=== PATIENT | male | born 1945 | race Caucasian/White ===

== ENCOUNTER 2017-08-02 14:07 | Inpatient (IN) | payer OTHER ==
[~2017-08-02] VITALS: Ht 172.7 cm; Wt 88.9 kg
--- NOTE | 2017-08-02 14:21 | ED GENERAL ADULT ---
History of Present Illness General Chief Complaint: Chest Pain Stated Complaint: RAPID AFIB Source: patient, old records, EMS Exam Limitations: poor historian Vital Signs & Intake/Output Vital Signs & Intake/Output Vital Signs Date Time Temp Pulse Resp B/P B/P Pulse O2 O2 Flow FiO2 Mean Ox Delivery Rate 08/04 1621 99 96 08/04 1326 101 95 08/04 1200 97.7 92 48 150/76 96 Nasal 75% Cannula 08/04 1200 96 Nasal 75% Cannula 08/04 1144 96 92 08/04 0825 81 93 08/04 0800 97.2 91 25 148/68 94 BIPAP 50% 08/04 0800 95 BIPAP 50% 08/04 0600 97.8 102 25 174/83 08/04 0543 104 96 08/04 0400 97.8 98 24 173/69 08/04 0400 96 BIPAP 50% 08/04 0245 106 96 08/04 0200 98.2 106 28 167/66 08/04 0054 109 97 08/04 0030 93 Nasal 40% Cannula 08/04 0000 98.2 110 34 158/74 08/04 0000 92 Nasal 40% Cannula 08/04 0000 98.2 110 34 136/80 92 Nasal 40% Cannula 08/03 2232 95 Nasal 40% Cannula 08/03 2200 97.8 106 30 158/79 08/04 1999 98.0 92 24 164/82 08/03 2000 94 Nasal 40% Cannula 08/04 1999 95 Nasal 40% Cannula 08/03 1700 94 Nasal 40% Cannula ED Intake and Output 08/04 0000 03 1200 Intake Total 797 1850 Output Total 820 100 Balance -23 1750 Intake, IV 797 1850 Intake, Oral 0 Number 0 0 Bowel Movements Output, Urine 820 100 Patient 233 lb Weight Weight Bed scale Measurement Method Allergies Coded Allergies: No Known Allergies (08/02/17) Reconcile Medications Aspirin (Adult Low Dose Aspirin EC) 81 MG TABLET.DR 1 TAB PO DAILY HEART/BLOOD (Reported) Carvedilol 25 MG TABLET 1 TAB PO BID HEART/BP (Reported) Lisinopril 20 MG TABLET 1 TAB PO DAILY BP (Reported) Triage Nurses Notes Reviewed? yes Onset: Gradual Duration: worse persistent since (2-3 DAYS) Timing: unknown Injury Environment: home Severity: moderate No Modifying Factors: none HPI: Patient is a 72-year-old from home coming in via EMS with history of CHF and hypertension presenting with chief complaint of generalized malaise, weakness, increasing lower extremities swelling, palpitations. According to EMS the landlord was concerned because she has not heard from the patient in several days and he usually calls daily if he needs something. She went over to check on him and found him on the ground. She was able to get him up and have him Samet couch. When EMS arrived he was sitting on the couch. Patient reports that he was sleeping on the floor. He's not sure if he fell or hit his head. Patient says that the last time he left his house was yesterday and he was able to go up and down 40 steps. Patient denies any recent fevers or chills. Positive cough. She does report diffuse abdominal discomfort and intermittent issues with moving his bowels. Denies diarrhea or constipation no. Denies any urinary frequency urgency or dysuria. Patient reports of the lower extremity edema got worse in the past 1-2 days. He ran out of all of his medications over the past 3 months, was unable to call his doctor for refills because he could not find the phone number. Patient has not been taking his medications for "a while". He is not sure what he was taking or why he was taking them. Patient reports some difficulty breathing is worse with exertion. Patient also reports centralized chest pressure that seems to come and go. No current pain at this time of the chest. Patient does report that he's had falls, once in the snow and once getting out of the car but he cannot recall when THAT WAS. (Archana Vergara) Past History Travel History Traveled to [place] past 21 day No Medical History Any Pertinent Medical History? see below for history Pneumonia Vaccine: 09/03/10 Influenza Vaccine: 09/03/10 Surgical History Surgical History: non-contributory Psychosocial History Who do you live with Patient/Self Services at Home None What is your primary language Albanian Family History Hx Contributory? No (Archana Vergara) Review of Systems Review of Systems Constitutional: Reports: see HPI, malaise. Denies: weakness. Comments Review of systems: See HPI, All other systems negative. Constitutional, no chills fever or weight loss HEENT: No visual changes no sore throat Cardiovascular: Positive orthopnea, positive lower extremity edema Skin, no jaundice no rashes Respiratory: No hemoptysis GI: No nausea no vomiting : No dysuria No hematuria Muscle skeletal: no back pain, no neck pain, Neurologic: No numbness Psych: No stress anxiety or depression,. Heme/endocrine: No bruising no bleeding no polyuria or polydipsia Immunology: No splenectomy or history of AIDS (Archana Vergara) Physical Exam Physical Exam General Appearance: alert, awake, moderate distress, obese Comments: OBESE and disheveled person in MILD DISTRESS, HEET exam, extraocular motion intact, no nystagmus. Pupils equally round and reactive to light and accommodation. Slight. No drainage noted from eyes bilaterally. Crusting noted in both eyelashes in the upper and lower eyelid. Nose is atraumatic. External auditory canal and Tympanic membranes clear. Pharynx normal. No swelling or edema. Very dry oral mucosa. Neck: Supple, no lymphadenopathy Cardiovascular: IRRegular rate and rhythms, RAPID Respiratory: Chest nontender. Moderate respiratory distress.breath sounds diminished to auscultation bilaterally at the bases Abdomen: Soft, obese, diffusely tender in the lower quadrant bilaterally with mild guarding, nondistended, no appreciable organomegaly. Normal bowel sounds. No ascites rectal: At time of rectal exam patient is agitated, unsafe to perform rectal exam at this time. Extremity: Extensive edema #3+ pitting noted in the lower extremities bilaterally, positive weeping noted in the left lower extremity, pedal pulses are 1+ bilaterally. Sensation is intact in lower extremities bilaterally. Cap refill intact in lower extremities bilaterally. Full range of motion of upper extremities without difficulty or pain. Neuro: Alert oriented to person only, motor sensory normal, cranial nerves II through XII grossly intact. Skin: Dry scabbing rash noted over the anterior shins bilaterally, no surrounding erythema. Some weeping noted from these lesions. Psych: Mood and affect is normal, POOR [employer]ORY AND [employer]GEMENT Core Measures ACS in differential dx? Yes CVA/TIA Diagnosis: No Sepsis Present: No Sepsis Focused Exam Completed? No (Archana Vergara) Progress Differential Diagnoses I considered the following diagnoses in my evaluation of the patient: Rapid atrial fibrillation, dehydration, thyroid dysfunction, CHF exacerbation, medication noncompliance, ACS, pneumonia, pe, sepsis, dvt, cellulitis Plan of Care: Orders Procedure Date/time Status SERUM PROTEIN ELECTR. Ref$ 03/04 0600 Active PROTHROMBIN TIME 08/05 0600 Active ICU LAB BUNDLE 08/05 0600 Active CBC WITHOUT DIFFERENTIAL 08/05 0600 Active COMPLEMENT C4 08/05 0600 Active COMPLEMENT C3 08/05 0600 Active PARTIAL THROMBOPLASTIN TIME 08/04 1930 Active Patient Safety Monitor 08/04 1355 Active Restraint- Medical 08/04 1355 Active Eason, Insertion/Removal/Asses 08/04 1355 Active PARTIAL THROMBOPLASTIN TIME 08/04 1230 Complete OXYGEN SETUP (GEN) 08/04 1155 Complete EKG 08/04 1020 Active ICU LAB BUNDLE 08/04 0600 Complete CBC WITHOUT DIFFERENTIAL 08/04 0600 Complete Heparin Drip- ACS 08/04 0429 Active PARTIAL THROMBOPLASTIN TIME 08/04 0019 Complete RT RE-EVALUATION 08/04 UNK Complete BIPAP 08/04 UNK Complete BIPAP 08/04 UNK Complete ARTERIAL BLOOD GAS (GEN) 08/04 UNK Complete Patient Safety Monitor 08/04 UNK Complete PARTIAL THROMBOPLASTIN TIME 08/03 1800 Complete THERAPIST ORDERS 08/03 1510 Complete WESTERGREN SED RATE 08/03 0525 Complete VITAMIN B12 08/03 0525 Complete ANTINUCLEAR ANTIBODY 08/03 0525 Active Lab Add-on Test 08/03 UNK Active Current Medications Sig/Richard Start time Last Medication Dose Stop Time Status Admin Diltiazem HCl 125 MG Q10H 08/05 0100 AC (Cardizem DRIP) Sodium Chloride 100 ML (Normal Saline 0.9%) Cyanocobalamin/ 1 BAG DAILY@1600 08/04 1600 AC Thiamine/Pyridoxine (Vitamin in I.V.) Dextrose/Water 1,000 ML (D5W 1000) Dextrose/Lactated 1,000 ML Q13H 08/04 1500 AC Ringer's (D5W in Lactated Ringers) Albuterol Sulfate 3 ML Q4P PRN 08/04 1330 AC 08/04 (Proventil) 1321 Doxycycline Hyclate 100 MG Q12H 08/04 1315 AC 08/04 (Vibramycin) 1407 Sodium Chloride 100 ML (Normal Saline 0.9%) Diltiazem HCl 125 MG Q12H 08/04 1115 AC 08/04 (Cardizem DRIP) 08/05 0059 1447 Sodium Chloride 100 ML (Normal Saline 0.9%) Aspirin 300 MG 0300 08/04 0300 AC 08/04 (Aspirin) 0439 Ceftriaxone Sodium 2,000 MG DAILY@1900 08/03 1900 AC 08/03 (Rocephin) 2216 Pantoprazole Sodium 40 MG DAILY 08/03 1000 AC 08/04 (Protonix) 0901 Nystatin 1 CYN BID PRN 08/03 0645 (Mycostatin) Thiamine HCl 100 MG Q8H 08/02 2330 AC 08/04 (Vitamin B-1) 1608 Sodium Chloride 50 ML (Normal Saline 50ML Bag) Heparin Sodium 25,000 UNIT Q24H 08/02 1545 AC 08/04 (Porcine) 0902 (Heparin) Sodium Chloride 500 ML Laboratory Tests 08/04/17 1234: APTT 102 *H 08/04/17 0445: Anion Gap 11, Estimated GFR 29 L, Glucose 90, Calcium 9.0, Phosphorus 4.5, Magnesium 1.9, Total Bilirubin 1.5 H, AST 86 H, ALT 72, Albumin 2.3 L, CBC w Diff NO MAN DIFF REQ, RBC 4.71, MCV 96.7 H, MCH 31.9 H, MCHC 33.0, RDW 16.8 H , MPV 8.1, Gran % 90.1 H, Lymphocytes % 4.6 L, Monocytes % 5.3, Eosinophils % 0, Basophils % 0, Absolute Granulocytes 9.0 H, Absolute Lymphocytes 0.5 L, Absolute Monocytes 0.5, Absolute Eosinophils 0, Absolute Basophils 0 08/04/17 0110: pH 7.38, pCO2 42, pO2 98, HCO3 24, ABG O2 Sat (Measured) 97.0, P-50 (Temp Corrected) N, Carboxyhemoglobin 0.8 L, O2 Concentration % .50, Respiration Rate 24, O2 Delivery Method BIPAP, Vent Mode ST, Expiratory Pressure 4, Inspiratory Pressure 20, Phlebotomy Draw Site RIGHT RADIAL 08/04/17 0020: APTT 73 H 08/03/17 1720: Ammonia < 9 L, APTT 58 H Microbiology 08/04 1611 HEAD/NECK: Head/Neck Culture - CAN Cancelled: Cancelled via OE: Per Decision 08/04 161 HEAD/NECK: Gram Stain - CAN Cancelled: Cancelled via OE: Per Decision 08/03 1816 LOWER RESP: Respiratory Culture - CAN Cancelled: SPECIMEN NOT RECEIVED IN LABORATORY 08/03 1816 LOWER RESP: Gram Stain - CAN Cancelled: SPECIMEN NOT RECEIVED IN LABORATORY 08/02/2017 4:41:07 PM patient in critical care. Care resumed by Dr. Navarro at this time. Diagnostic Imaging: Viewed by Me: Radiology Read. Discussed w/RAD: Radiology Read. Radiology Impression: PATIENT: JOSE GLEASON PRESENT AGE: 72 PATIENT ACCOUNT NO: [id number] : 44 LOCATION: [facility] ORDERING PHYSICIAN: Archana MITCHELL SERVICE DATE: 08/02/17 EXAM TYPE: RAD - XRY-PORTABLE CHEST XRAY EXAMINATION: XR PORTABLE CHEST CLINICAL INFORMATION: Cough. Rule out pneumonia. COMPARISON: Chest x-ray dated 09/02/2010. TECHNIQUE: Portable AP semierect view of the chest was obtained. FINDINGS: The cardiac mediastinal silhouette appears enlarged, at least in part related to the AP portable technique. Underlying cardiomegaly may however, possibly present. Central vascular congestion is seen and there are patchy bibasilar opacities, right greater than left, suspicious for atelectasis or pneumonia. No overt pulmonary edema is seen. No definite pleural effusion or pneumothorax is noted. Bony structures are grossly unremarkable. IMPRESSION: 1. Cardiomegaly and central vascular congestion. 2. Bibasilar opacities, suspicious for atelectasis or pneumonia. DICTATED BY: Aliyah Mcarthur MD DATE/TIME DICTATED:08/02/171503 DEGREASER OPERATOR:DHARMESH DATE/TIME TRANSCRIBED:08/02/171503 CONFIDENTIAL, DO NOT COPY WITHOUT APPROPRIATE AUTHORIZATION. <Electronically signed in Other Vendor System> SIGNED BY: Aliyah Mcarthur MD 08/02/17 1509 Initial ED EKG: AFIB (rapid) Comments: 08/02/2017 4:02:20 PM on arrival patient in rapid atrial fibrillation patient is oriented to person, confused about time and situation. Very poor historian. Oxygen saturation around 90% on room air, but on 2 L nasal cannula with improvement to 95-97%. Patient's cranial nerves are intact with no focal deficits. Patient medicated with IV Cardizem 10 mg 2 boluses. Monitor still showing patient in rapid atrial fibrillation around 150-160. Considering ACS, PE. Unsure if patient has history of atrial fibrillation in the past. Meds reconciled consistent antihypertensive medications. Patient also reports that he has not taken his meds "for a while". 08/02/2017 4:34:41 PM medical restraints ordered for patient as he is becoming agitated and starting to pull out his IV. (Tanisha MITCHELL,Archana) Comments: 08/02/2017 4:17:33 PM I have discussed Farhan case with Dr. BHAKTA. 08/02/2017 4:52:59 PM patient's case discussed with Dr. Hitchcock any particular the patient's current heart rate and elevated troponin level. Dr. Hitchcock will be in to see this patient in about 30 minutes. He recommends another dose of IV Lopressor 5 mg to improve heart rate control. Patient is being evaluated by Dr. Bhakta and he will be admitted to the intensive care unit. 08/02/2017 6:09:[address] Hitchcock is evaluating patient. Patient has already been evaluated by the ICU house staff. Unable to obtain CAT scan due to agitation, question of . I will order a blood gas and we are continuing to adjust the patient's rate controlling medications as he remains persistently tachycardic. 08/02/2017 7:04:47 PM we have just cardioverted Jose into a controlled heart rate after initially 50 kg joules followed by 70 kg joules. His heart rate is now in the 80s and his blood pressure is normal. (Melanie KOEHLER,Wiliam Villegas) Departure Departure Time of Disposition: 1638 Disposition: STILL A PATIENT Condition: Stable Clinical Impression Primary Impression: Rapid atrial fibrillation Secondary Impressions: Elevated troponin Hypotension Qualifiers: Hypotension type: unspecified hypotension type Qualified Code: I95.9 - Hypotension, unspecified Referrals: Patient Has No Primary Care Dr (PCP/Family) Departure Forms: Customer Survey General Discharge Information Admission Note Spoke With: Kd KOEHLER,Susi Documentation of Exam: Documentation of any treatments & extenuating circumstances including Concerns Regarding Discharge (functional status, medication knowledge or non-compliance, living conditions, etc.) that warrant an admission rather than observation: Patient requiring telemetry monitoring, requiring cardiology consultation, serial EKGs and troponins, patient requiring medication management, control of rapid atrial fibrillation, anticoagulation. Discharge at this time is harmful which she would likely lead to worsening symptoms and . Patient will need a VQ scan to rule out PE versus CTA of the chest after renal function has improved. Patient may require cardioversion. (Archana Vergara) PA/WEBSPHERE PROCESS SERVER DEVELOPER Co-Sign Statement Statement: ED Attending supervision documentation- [x] I saw and evaluated the patient. I have also reviewed all the pertinent lab results and diagnostic results. I agree with the findings and the plan of care as documented in the PA's/WEBSPHERE PROCESS SERVER DEVELOPER's documentation. Patient presents for evaluation of generalized weakness and heart palpitation. Physical examination reveals an irregular heartbeat and bilateral lower extremity edema. [] I have reviewed the ED Record and agree with the PA's/WEBSPHERE PROCESS SERVER DEVELOPER's documentation. [] Additions or exceptions (if any) to the PAs/WEBSPHERE PROCESS SERVER DEVELOPER's note and plan are summarized below: [] (Melanie KOEHLER,Wiliam Villegas) Critical Care Note Critical Care Note Critical Care Time: 75-104 min (Archana Vergara)
[2017-08-02 15:02] LABS: ABSOLUTE BASOPHIL COUNT 0 /CUMM (0.0-0.2); ABSOLUTE EOSINOPHIL COUNT 0 /CUMM (0.0-0.7); ABSOLUTE GRANULOCYTE CT 9.5 /CUMM (1.4-6.5); ABSOLUTE LYMPH COUNT 0.6 /CUMM (1.2-3.4); ABSOLUTE MONOCYTE COUNT 0.6 /CUMM (0.10-0.60); BASOPHIL % 0 % (0.0-2.0); EOSINOPHIL % 0 % (0-5); HEMATOCRIT 52.2 % (42-52); MEAN CORPUSCULAR HGB 31.9 PG (27.0-31.0); MEAN CORPUSCULAR HGB CONC 33.4 G/DL (33.0-37.0); MEAN CORPUSCULAR VOLUME 95.3 FL (80.0-94.0); MEAN PLATELET VOLUME 8.7 FL (7.4-10.4); PLATELET COUNT 151 /CUMM (130-400); RBC DISTRIBUTION WIDTH 16.3 % (11.5-14.5); RED BLOOD CELL CT 5.48 /CUMM (4.70-6.10); WHITE BLOOD CELL COUNT 10.7 /CUMM (4.8-10.8)
--- NOTE | 2017-08-02 15:09 | RADIOLOGY REPORT ---
EXAMINATION: XR PORTABLE CHEST CLINICAL INFORMATION: Cough. Rule out pneumonia. COMPARISON: Chest x-ray dated 09/02/2010. TECHNIQUE: Portable AP semierect view of the chest was obtained. FINDINGS: The cardiac mediastinal silhouette appears enlarged, at least in part related to the AP portable technique. Underlying cardiomegaly may however, possibly present. Central vascular congestion is seen and there are patchy bibasilar opacities, right greater than left, suspicious for atelectasis or pneumonia. No overt pulmonary edema is seen. No definite pleural effusion or pneumothorax is noted. Bony structures are grossly unremarkable. IMPRESSION: 1. Cardiomegaly and central vascular congestion. 2. Bibasilar opacities, suspicious for atelectasis or pneumonia.
[2017-08-02 15:19] LABS: GRANULOCYTE % 88.5 % (42.2-75.2)
[2017-08-02 15:31] LABS: PT 21.7 SEC (9.4-12.5); PTT 32 SEC (25-37)
[2017-08-02] MEDS ORDERED: ADULT LOW DOSE81 MG PO (16:35)
[2017-08-02] MEDS ORDERED: CARVEDILOL25 M1 PO (16:36)
[2017-08-02] MEDS ORDERED: LISINOPRIL20 M1 PO (16:36)
--- NOTE | 2017-08-02 17:42 | PN- Att Addend ---
Attending Addendum Attending Brief Note 72 y/o m with past medical history significant for CHF systolic and diastolic at one point, hypertension who was brought in to the emergency room by ambulance after the landlord found him in his apartment laying on the floor, in a messy situation. Landlord put him on the couch and patient looked short of breath and sick. According to emergency room notes, landlord hasn't heard from him in few days so she visited him and found like this. Patient was brought into the emergency room. He is not a good historian and not able to provide any good history. In the emergency room patient was found to be tachycardic and new onset A. fib. His heart rate was running anywhere between 160s to 170s. Patient is swollen everywhere in the body and has pretty bad anasarca. He has open wounds with excoriations on his bilateral lower extremities. Patient was agitated and trying to get out of bed therefore he was put in a [place]. He has positive troponins, acute renal failure. He was admitted in 2010 with dehydration and acute renal failure. He was seen by Dr. Moises Fry at that time. Patient himself did not provide any meaningful history. He does have high lactate levels. He is also hypotensive. His blood gas does not look that bad. Vital Signs Date Time Temp Pulse Resp B/P B/P Pulse O2 O2 Flow FiO2 Mean Ox Delivery Rate 08/02 1726 158 22 92/70 100 Nasal 4.0L Cannula 08/02 1720 172 92/60 08/02 1715 175 22 92/60 95 Nasal 4.0L Cannula 08/02 1548 176 100/60 08/02 1528 Nasal 4.0L Cannula 08/02 1519 97.0 176 24 100/60 93 Nasal 3.0L Cannula 08/02 1506 180 20 110/78 / 1430 199 119/59 03/ 1419 97.4 185 20 119/59 89 Room Air on exam; awake, confused. cv; s1,s2, irrgular, tachycardic. resp; overall decreased bs. abd; soft, bs+, nt. ext; 4+ edema b/l le. skin; open wounds and excoriations on bilateral lower extremity. EKG shows rapid atrial fibrillation. CXR: IMPRESSION: 1. Cardiomegaly and central vascular congestion. 2. Bibasilar opacities, suspicious for atelectasis or pneumonia. A/P; 72 y/o m with past medical history significant for CHF systolic and diastolic at one point, hypertension admitted to ICU with multiple problems. * Altered mental state * Rapid atrial fibrillation which is new onset * NSTEMI versus demand ischemia. * Acute renal failure * High lactate levels * Coagulopathy * Transaminitis * Acute CHF with high proBNP. * Hypotension. Patient admitted to ICU. CT head, CT abd pelvis ordered by ER physician. He was started on Cardizem gtt. Patient now is hypotensive and tachycardic. Firer Boiler consult. Dr. Cisneros notified by me. Stat cardiology consult. ER doc spoke with hot air furnace installer repairer. ABG not bad. Pt might need shock, will leave that upto the hot air furnace installer repairer. Needs anticoagulation once ruled for intracranial bleed. Trend trops, trend lactate. Aspirin Statin. Trend renal fx, Renal US, nephrology consult. DVT px: hep gtt if ruled out for IC bleed. D/w brother who is not involved in this patient's care. Full code for now.
--- NOTE | 2017-08-02 18:44 | Cons- Cardiology ---
General Information and HPI Consulting Request Date of Consult: 08/02/17 Requested By: Amelia KOEHLER,Kurt Robles History of Present Illness: This patient is a 72 year old male with history of diastolic heart failure and syncope. He was brought to the ER after his landlord found him on the floor. He had fallen in the snow a couple days ago. EMS gave him NTG which was followed by a drop in blood pressure. In the ER the patient was noted to be in atrial fibrillation with very fast heart rate. The patient can respond to questioning but denies any chest discomfort, shortness of breath, lightheadedness or palpitations. He has elevated LFT's, an elevated troponin and increased serum lactate level. He also has an elevated INR in the absence of any known anticoagulation therapy. This patient is known to be non-compliant with medications and physician follow- up. His last echocardiogram showed a normal EF of 60% with mild left atrial enlargement and mild TR. He reportedly had a cardiac cath in the past that was unremarkable for any flow limiting disease. Allergies/Medications Allergies: Coded Allergies: No Known Allergies (08/02/17) Home Med List: Aspirin (Adult Low Dose Aspirin EC) 81 MG TABLET.DR 1 TAB PO DAILY HEART/BLOOD (Reported) Carvedilol 25 MG TABLET 1 TAB PO BID HEART/BP (Reported) Lisinopril 20 MG TABLET 1 TAB PO DAILY BP (Reported) Review of Systems Review of Systems: A review of systems is unobtainable from this patient. Past History Travel History Traveled to [place] past 21 day No Medical History Cardiovascular: hypertension, syncope Surgical History Surgical History: non-contributory Psychosocial History Services at Home: None ETOH Use: occasional use Illicit Drug Use: denies illicit drug use Exam & Diagnostic Data Vital Signs and I&O Vital Signs Date Time Temp Pulse Resp B/P B/P Pulse O2 O2 Flow FiO2 Mean Ox Delivery Rate 08/02 1726 158 22 92/70 100 Nasal 4.0L Cannula 08/02 1720 172 92/60 08/02 1715 175 22 92/60 95 Nasal 4.0L Cannula 08/02 1548 176 100/60 08/02 1528 Nasal 4.0L Cannula 08/02 1519 97.0 176 24 100/60 93 Nasal 3.0L Cannula 08/02 1506 180 20 110/78 08/02 1430 199 119/59 08/02 1419 97.4 185 20 119/59 89 Room Air Intake & Output 08/02 1600 08/02 0800 08/02 0000 08/01 1600 08/01 0800 08/01 0000 Intake Total Output Total Balance Patient 208 lb Weight Weight Reported by Patient Measurement Method Physical Exam: General: WD/obese male in NAD; awake and confused HEENT: Nc/AT, PERRl, EOMI Neck: no JVD, no carotid bruit Heart: tachycardic and irregularly irregular, no murmur Lungs: clear bilaterally Abdomen: soft, obese, NT, +ve bowel sounds Extremities: 3+ bilateral leg edema with weeping legs Assessment/Plan Assessment/Plan * Mental status abnormality. It is unclear if this is the patient's baseline but he is not completely lucid. Intracerebral trauma related to his recent fall needs to be considered and I would pursue a head CT. His ABG shows adequate oxygenation and a normal pH. I am therefore not suspicious of a PE causing mental status changes. It is reasonable to check his thyroid function tests. Infection, or impending sepsis is also in the differential. Would avoid sedation or anxiolytics at this point in time. * This patient has a rise in cardiac enzymes consistent with a type 2 ID. He has no chest discomfort and there are no clear ST segment elevations. Monitor his cardiac enzymes until they peak. He will not be able to tolerate nitrates due to his blood pressure which dropped after receiving NTG by EMS. Rate control will be the most effective means of limiting any myocardial ischemia. Continue IV heparin and begin aspirin 325mg daily. We will avoid a statin due to his elevated LFT's for now. * Atrial fibrillation. It is unknown how long this patient has been in atrial fibrillation but he is very tachycardic with a borderline blood pressure and cardiac enzymes are rising. He has not responded to IV Cardizem or IV Lopressor. We will pursue a DC cardioversion for hemodynamic instabilty. Continue IV heparin. Consult Acknowledgment - Thank you for your consult request.
--- NOTE | 2017-08-02 18:55 | History & Physical ---
Peter KOEHLER,Phujesus 08/02/171851: General Information and HPI MD Statement: I have seen and personally examined JOSE PIKE and documented this H&P. The patient is a 72 year old M who presented with a patient stated chief complaint of [AMS]. Source of Information: old records Exam Limitations: unable to give history, not alert/orientated, poor historian History of Present Illness: This is a 72 yo male with PMH of CHF, HTN, prev hx of syncope who comes in for CC AMS. When I saw pt he was AO X 0. He thought his name was Talat, the year was 1897 and he didn't know where he was. History is obtained from chart review and ED notes. Apparently pt was found down by his landlord who got worried since he hadn't heard from ih in a few days. Apparently pt was on this floor in a dissheveled situation and messy apartment. Landlord thought that pt looked ill and short of breath so he called ambulance. I called pt's son Jose Pike III, who lives is [place] for further info. Last time son spoke with pt was on Sunday on Jul 31, 2017. At that time pt complained of "having the flu" and feeling under the weather to his son. Son thought that pt sounded slurred. Prior to that last time son spoke to father was about two months ago. Unsure if pt was taking any OTC meds for symptom relief. Per ED hx it seems like pt was alert enough to give some reasonable history to [facility]. Apparently he was lucid enough to remark "last time he left his house was yesterday and he was able to go up and down 40 steps. Patient denies any recent fevers or chills. Positive cough." He also endorsed recent falls. His mental status seems to have worsened after he was in ED. He was unable to give me any history during my interview. Medication claim suggests that pt has not taken any meds in over a year. Medication non-compliance endorsed by son and previous note written by Dr. Moises Seaman. Fam hx pertinent for lung ca in mother. No hx CAD. Soc hx pertinent for social etoh use per son but he does not know if father is alcoholic. No IVDA. Allergies/Medications Allergies: Coded Allergies: No Known Allergies (08/02/17) Home Med list Aspirin (Adult Low Dose Aspirin EC) 81 MG TABLET. 1 TAB PO DAILY HEART/BLOOD (Reported) Carvedilol 25 MG TABLET 1 TAB PO BID HEART/BP (Reported) Lisinopril 20 MG TABLET 1 TAB PO DAILY BP (Reported) Compliance With Home Meds: UNKNOWN Past History Travel History Traveled to [place] past 21 day No Medical History Cardiovascular: hypertension, syncope Pneumonia Vaccine: 09/03/10 Influenza Vaccine: 09/03/10 Surgical History Surgical History: non-contributory Past Family/Social History Psychosocial History Services at Home: None ETOH Use: occasional use Illicit Drug Use: denies illicit drug use Review of Systems Review of Systems Constitutional: Reports: see HPI. Exam & Diagnostic Data Last 24 Hrs of Vital Signs/I&O Vital Signs Date Time Temp Pulse Resp B/P B/P Pulse O2 O2 Flow FiO2 Mean Ox Delivery Rate 08/02 1904 89 118/66 08/02 1849 166 18 86/60 08/02 1726 158 22 92/70 100 Nasal 4.0L Cannula 08/02 1720 172 92/60 08/02 1715 175 22 92/60 95 Nasal 4.0L Cannula 08/02 1548 176 100/60 08/02 1528 Nasal 4.0L Cannula 08/02 1519 97.0 176 24 100/60 93 Nasal 3.0L Cannula 08/02 1506 180 20 110/78 08/02 1430 199 119/59 08/02 1419 97.4 185 20 119/59 89 Room Air Intake & Output 08/02 1600 08/02 0800 08/02 0000 Intake Total Output Total Balance Patient 94.347 kg Weight Weight Reported by Patient Measurement Method Physical Exam General Appearance Moderate Distress, AO X0 Skin SEVERAL OPEN SORES IN BILAT LE Sepsis Skin Exam (color): Flushed HEENT Atraumatic, PERRLA Cardiovascular TACHYCARDIC UP TO 150S Lungs Finn rhonchi apprciated. unsure if sounds are upper airway Abdomen obese. he complaines of some tenderness diffusely Neurological speech slurred, no facial droop and moving all extremeties equally and spontaenously. Extremities 4+ edema above knees. chronic stasis skin changes in bilat LE. LLE with erythema in calf that is warm. Last 24 Hrs of Labs/Zackery: Laboratory Tests 08/02/17 1836: Lactic Acid 4.3 H 08/02/17 1810: pH 7.41, pCO2 33 L, pO2 92, HCO3 21, ABG O2 Sat (Measured) 96.0, P-50 (Temp Corrected) N, Carboxyhemoglobin 0.2 L, O2 Concentration % 4L, Temperature 97.0, O2 Delivery Method NC, Phlebotomy Draw Site RIGHT RADIAL 08/02/17 1635: Urine Opiates Screen < 100, Methadone Screen < 40, Barbiturate Screen < 60, Ur Phencyclidine Scrn < 6.00, Amphetamines Screen < 100, U Benzodiazepines Scrn < 85, Urine Cocaine Screen < 50, Urine Cannabis Screen < 5.00, Urine Color YEL, Urine Clarity HAZY H, Urine pH 6.0, Ur Specific [place] 1.025, Urine Protein 100 H, Urine Ketones TRACE H, Urine Nitrite NEG, Urine Bilirubin NEG@ICTO, Urine Urobilinogen 2.0 H, Ur Leukocyte Esterase NEG, Ur Microscopic SEDIMENT EXAMINED, Urine RBC 10-15 H, Urine WBC 3-5 H, Ur Epithelial Cells RARE, Urine Bacteria RARE H, Urine Hemoglobin LARGE H, Urine Glucose NEG 08/02/17 1517: Lactic Acid 3.3 H, PT 21.7 H, INR 2.08 H, APTT 32, D-Dimer High Sensitivty 3108 H 08/02/17 1450: Anion Gap 15, Estimated GFR 37 L, BUN/Creatinine Ratio 30.6 H, Glucose 76, Calcium 9.9, Total Bilirubin 3.1 H, AST 119 H, ALT 76 H, Alkaline Phosphatase 98, Creatine Kinase 395 H, Troponin I 1.71 *H, Prr-F-Zjjnzfcffqo Pept 4650 H, Total Protein 6.1 L, Albumin 3.0 L, Globulin 3.1, Albumin/Globulin Ratio 1.0 L, Free T4 1.94, Total T3 Pending, TSH &T3 &Free T4 Intrp 1.260, CBC w Diff NO MAN DIFF REQ, RBC 5.48, MCV 95.3 H, MCH 31.9 H, MCHC 33.4, RDW 16.3 H, MPV 8.7, Gran % 88.5 H, Lymphocytes % 5.5 L, Monocytes % 6.0, Eosinophils % 0, Basophils % 0, Absolute Granulocytes 9.5 H, Absolute Lymphocytes 0.6 L, Absolute Monocytes 0.6, Absolute Eosinophils 0, Absolute Basophils 0, Serum Alcohol < 10.0 Microbiology 08/03 1851 URINE ROUT: Urine Culture - COLB 08/02 1828 UPPER RESP: Surveillance Culture - COLB 08/02 1828 GI: Surveillance Culture - COLB 08/03 1811 BLOOD: Blood Culture - COLB 08/03 1811 BLOOD: Blood Culture - COLB 08/02 1635 URINE ROUT: Urine Culture - RECD 08/02 1442 URINE ROUT: Urine Culture - ORD Assessment/Plan Assessment: ASSESSMENT:This is a 72 yo male with PMH of CHF, HTN, prev hx of syncope who comes in for CC AMS after being found down for unknown duration. He was found to be in a.fib RVR up to 199, he was confused and agitated. In ED multiple pushes of Lopressor and cardizem drip failed to adequately control his HR and he became hypotensive with systolic in 80s and even more confused. After cardiology evaluation decision was made to cardiovert pt for hemodynamic instability. First cardioversion with 50 J unsuccessful, second cardioversion with 70 J successful and pt went into NSR with rate 80-90s. Overall, this is pt with presumed new onset Afib with RVR, decompensated heart failure and AMS. Unsure if the afib is secondary to heart failure or possible infectious source. Theoretically, he meets SIRS criteria but his signs of tachycardia/hypotension are due to his rapid atrial fibrillation. Etiology of AMS remains elusive with DDX metabolic encephalopathy, primary neurologic event such as bleed given elevated INR and fall, or medication/drugs. PLAN: AMS: * CT head * Neuro check * ABG * NPO AFIB RVR: S/P synch cardioversion. Now rate controlled but still irregular. EKG showed rate 190, irregularly irregular rhythm, evidence of RBBB and L fascicular block. TFT WNL. * Monitor on tele * Heparin drip * Initially on Diltiazem drip. will scale back now that he is rate controlled * Repeat EKG Elevated Troponin: First trop 1.71, EKG a.fib RVR. THought to be secondary to demand due to tachycardia and less likely plaque rupture. * monitor EKG/Trop until peak * Echo * ASA 300 TX * On heparin drip CHF: Echo from 2009 shows EF 35% but from 2010 shows EF 65% with hyperdynamic LV and mild LAE. Pt has significant LE edema, and cxr with evidence of volume overload raising concern for decompensated heart failure. BNP 4650, no previous value. * Echo * Hold Beta dick * Holding Lisinopril for hypotension * Appreciate cardio recs * Strict I/O * Eason placed Chronic vs Acute Renal Failure: Cr 1.8 with BUN 55 today. Historically Cr between 1.1-2.3. Unsure of his baseline. * Cont monitor * avoid nepro toxins * Renal consult for AM * Renal US * UA * Urine lytes Hypoxic respiratory failure: Pt was O2 sat 89 when he first came in. He was satting in mid 80s when I was in room. unsure if secondary to fluid overload and or RVR causing dyspnea. CXR with evidence of volume overload and ? bibasliar opacity * ABG * 1 x VANCO/CEF/AZITHRO Transamanitis: Tbili 3.1, AST 119, ALT 76. INR elevated to 2. Not on AC. Pt has unknown hx etoh consumption. DDX: etoh, drug induced, and given abdominal pain on exam cholelithiasis/cystitis. * UTOX * CIWA protocol * Con't monitor * CT- ABD * Fractionate Bili * Consider RUQ US * IV Hi-dose thiamine q8 for 3 doses Lactic acidosis: Could be secondary to RVR and hypotension leading to ischemia and also elevated troponin. Will also treat for possible infection as trigger for afib with RVR. However, note he has been afebrile with WBC WNL. Possible sources include PNA, cellulitis of LLE, UTI, ABD source given pain, cannot rule out meningits but no fever, nuchal rigidity. His AMS really started AFTER admission. Will cover broadly and reassess after workup. * Cont trend LA * VANCO/CEFTRIAXONE/AZITHRO X 1 ordered; dosed with assistancy of pharmacy * Blood cultures * urine culture * sputum culture * flu swab FC Heparin if CT head cleared NPO As Ranked By This Provider Problem List: 1. Elevated troponin 2. Hypotension Qualifiers Hypotension type: unspecified hypotension type Qualified Code: I95.9 - Hypotension, unspecified 3. Rapid atrial fibrillation Core Measures/Misc (02/18) Acute Coronary Syndrome ACS Diagnosis: No Congestive Heart Failure Congestive Heart Failure Diagnosis Yes Last Known EF % 65 No MARIBEL/ARB d/t Medical Contraindication Cerebrovascular Accident CVA/TIA Diagnosis: No VTE (View Protocol) VTE Risk Factors Acute Medical Illness No Mechanical VTE Prophylaxis d/t N/A MechProphylax Ordered No VTE Pharm Prophylaxis d/t NA PharmProphylax ordered Sepsis (View protocol) Sepsis Present: No [facility] 2144: Attending MD Review Statement Attending Statement Attending MD Statement: examined this patient, discuss w/resident/PA/STAGE TECHNICIAN, agreed w/resident/PA/STAGE TECHNICIAN, discussed with family, reviewed EMR data (avail), discussed with nursing, discussed with case mgmt, reviewed images, amended to note Attending Assessment/Plan: Seen and examined independently. Significant data reviewed CT scan of the abdomen showed bilateral pleural effusion CT of the head did not reveal any abnormality which was acute Portable chest x-ray showed cardiomegaly with bibasilar atelectasis versus pneumonia but the abdominal CT lower cuts does suggest that he has moderate bilateral pleural effusion with bibasilar airspace disease and small pericardial effusion Blood work reviewed His hemoglobin 17.5 White count 10 no significant left shift D-dimer was significantly elevated but specimen was hemolyzed Echocardiogram reviewed which showed low ejection fraction of 50% with inferior apical and apical hypokinesis large apical thrombus. IMPRESSION This is a 72-year-old gentleman with history of diabetes, previous heart failure diastolic, previous syncope, came into the hospital as was brought in from his home as his landlord found him on the floor. Patient apparently had had a previous fall in the snow as well. In the emergency room he was noted to have significant atrial fibrillation with tachycardia and he was hypotensive and hemodynamically unstable and had to have emergent cardioversion as his blood pressure was slow and he was unstable. Apparently patient has been compliant and has not seen any physicians in the recent past. Other data as noted above. Since he came into the emergency room his mental status apparently deteriorated. Apparently was lucid when he came in and he did not have any temperature and he was not complaining of a headache. Subsequently he became more confused and had to require large doses of Ativan as he was cardioverted emergently by Dr. Hitchcock. ISSUES * Recent worsening overall mental status status post fall with no clinical evidence suggestive of significant bacterial endocarditis however this may need to be ruled out. Apparently his mental status when he came in was relatively stable and patient now has decreased mentation due to delirium and Ativan * Rapid atrial fibrillation with significantly large intraventricular clot with probable strokelike syndrome * Hypoxemic respiratory failure due to fluid overload, aspiration pneumonia * Lactic acidosis due to low flow state related to hypotension from his rapid atrial fibrillation, and sepsis may have pneumonia as well * Total body fluid overload with lower extremity edema with bilateral pleural effusion, atelectasis, clinical evidence suggestive of systolic and diastolic heart failure * Type II AR versus coronary syndrome all her by cardiology * Bilateral pulmonary infiltrates with thick yellow-green sputum suggestive of pneumonia rule out aspiration pneumonitis * Chronic kidney disease with acute renal insufficiency * Rule out venous thromboembolism. Patient is not a candidate for CTA due to kidney disease and he is being heparinized anyway. As his blood pressures stable and no evidence suggestive of significant RV dysfunction unlikely that he has a significant PE however he may have a DVT * Worsening performance status with previous hypertension hyperlipidemia and medical noncompliance Recommendation * Intravenous heparin as he has a large intraventricular clot * Continue diltiazem per cardiology * Broad-spectrum antibiotics including vancomycin, azithromycin and high-dose ceftriaxone * Avoid lorazepam * Keep the head of bed elevated * Intravenous proton pump inhibitor daily * Neurochecks * Low threshold for intubation overnight * Eason catheter * Judicious use of IV fluids with 60 mL of D5 Ringer's lactate * Sputum culture * If his blood pressure stabilizes 1 dose of intravenous Lasix may be tried * Lower extremity Doppler Patient is critically ill total time spent 45 minutes
--- NOTE | 2017-08-02 20:10 | ULTRASOUND REPORT ---
EXAMINATION: RENAL ULTRASOUND CLINICAL INFORMATION: Sepsis. Elevated creatinine. COMPARISON: None. TECHNIQUE: Real-time imaging of the kidneys and bladder. FINDINGS: RIGHT KIDNEY: There is neither hydronephrosis nor nephrolithiasis. There is mild diffuse renal cortical thinning. The right kidney measures 12.3 cm. LEFT KIDNEY: There is neither hydronephrosis nor nephrolithiasis. There is mild diffuse renal cortical thinning. The left kidney measures 8.2 cm. BLADDER: The urinary bladder is empty. There is no demonstrable wall thickening. There is no pelvic free fluid. IMPRESSION: Neither hydronephrosis nor nephrolithiasis. Bilateral renal cortical thinning.
--- NOTE | 2017-08-02 21:07 | ECHOCARDIOGRAM REPORT ---
EVELIA GLEASON Age: 72 : 1945 Gender: M Exam Date: 08/02/2017 19:45 Exam Location: ER Ht (in): 68 Wt (lb): 208 BSA: 2.16 BP: 100 / 60 Ordering Physician: Marleny Green MD Referring Physician: Jamal Hitchcock MD, PhD Technologist: Olga Schultz [facility] Room Number: ER#[id number] Indications: AFIB/FLUTTER Rhythm: Sinus Technical Quality: good FINDINGS Left Ventricle Normal left ventricular size with moderate left ventricular hypertrophy. Normal overall systolic function with hypokinesis of the distal inferior wall and apex. Thrombus is noted in the apex. Normal left ventricular diastolic filling pattern for age. The ejection fraction is visually estimated at 50%. Right Ventricle The right ventricle is normal in size and function. Right Atrium The right atrium is normal in size. Left Atrium The left atrium is moderately enlarged. The interatrial septum is intact. Mitral Valve The mitral valve is normal in structure and function. There is mild mitral regurgitation. Aortic Valve Structurally normal aortic valve without significant sclerosis or stenosis. There is no aortic regurgitation. Tricuspid Valve The tricuspid valve is normal in structure and function. There is mild tricuspid regurgitation. Pulmonary artery systolic pressure is mildly elevated to 40mmHg. Pulmonic Valve Structurally normal pulmonic valve. There is no pulmonic regurgitation. Pericardium Normal pericardium with small effusion. No pleural effusion. Great Vessels Normal aortic root dimension. The aortic arch and great vessels are well seen and are normal. CONCLUSIONS 1. Low normal EF of 50% with inferoapical and apical hypokinesis. 2. Large apical thrombus. 3. Moderate left ventricular hypertrophy. 4. Moderate left atrial enlargement. 5. Mild mitral regurgitation. 6. Mild tricuspid regurgitation. 7. Mild pulmonary hypertension. 8. Small pericardial effusion. Jamal Hitchcock M.D. (Electronically Signed) Final Date: 02 August 2017 21:06 MEASUREMENTS (Male / Female) Normal Values 2D ECHO LV Diastolic Diameter PLAX 4.4 cm 4.2 - 5.9 / 3.9 - 5.3 cm LV Systolic Diameter PLAX 3.1 cm 2.1 - 4.0 cm LV Fractional Shortening PLAX 29.5 % 25 - 46 % LV Ejection Fraction 2D Teich 56.8 % IVS Diastolic Thickness 1.7 cm LVPW Diastolic Thickness 1.6 cm LV Relative Wall Thickness 0.8 RV Internal Dim ED PLAX 3.7 cm 1.9 - 3.8 cm LVOT Diameter 2.1 cm Aortic Root Diameter 2.9 cm LA Systolic Diameter LX 4.7 cm 3.0 - 4.0 / 2.7 - 3.8 cm LA Volume 82.0 cm 18 - 58 / 22 - 52 cm DOPPLER AV Peak Velocity 157.0 cm/s AV Peak Gradient 9.9 mmHg AV Mean Velocity 102.0 cm/s AV Mean Gradient 5.0 mmHg AV Velocity Time Integral 27.2 cm LVOT Peak Velocity 168.0 cm/s LVOT Peak Gradient 11.3 mmHg LVOT Mean Velocity 105.0 cm/s LVOT Mean Gradient 5.0 mmHg LVOT Velocity Time Integral 27.1 cm LVOT Stroke Volume 93.9 cm AV Area Cont Eq vti 3.5 cm AV Area Cont Eq pk 3.7 cm MV Peak Velocity 114.0 cm/s MV Peak Gradient 5.2 mmHg MV Mean Velocity 64.6 cm/s MV Mean Gradient 2.0 mmHg Mitral E Point Velocity 117.0 cm/s Mitral A Point Velocity 60.5 cm/s Mitral E to A Ratio 1.9 MV PHT Velocity 119.0 cm/s MV Deceleration [place] 454.0 cm/s MV Pressure Half Time 78.6 ms MV Area PHT 2.8 cm MV Deceleration Time 264.0 ms TR Peak Velocity 294.0 cm/s TR Peak Gradient 34.6 mmHg Right Atrial Pressure 5.0 mmHg Pulmonary Artery Systolic Pressu 39.6 mmHg Right Ventricular Systolic Press 39.6 mmHg LV E' Lateral Velocity 5.5 cm/s Mitral E to LV E' Lateral Ratio 21.4 LV E' Septal Velocity 5.6 cm/s Mitral E to LV E' Septal Ratio 20.9
--- NOTE | 2017-08-02 21:36 | CT SCAN REPORT ---
EXAMINATION: CT ABDOMEN AND PELVIS WITHOUT CONTRAST CLINICAL INFORMATION: Abdominal pain. COMPARISON: None. TECHNIQUE: Contiguous axial thin section helical images of the abdomen and pelvis were performed without oral or IV contrast. The data set was reformatted in the coronal and sagittal planes and reviewed on an independent workstation. DLP: 1260 mGy-cm. FINDINGS: There are moderate bilateral pleural effusions. There is associated bibasilar airspace disease. The visualized portions of the heart demonstrate enlargement. There is a small pericardial effusion. The liver is of normal size and attenuation without focal lesions nor intrahepatic biliary ductal dilation. A normal gallbladder is identified. There is no wall thickening or discernible pericholecystic fluid. The spleen, pancreas, adrenal glands are unremarkable. Both kidneys are of normal size and attenuation without hydronephrosis. There are several punctate nonobstructive renal calculi bilaterally. There are bilateral parapelvic cysts. There is mild bilateral perinephric stranding. There is no abdominal free fluid. There is neither mesenteric nor retroperitoneal lymphadenopathy. There is sigmoid diverticulosis without evidence of diverticulitis. Otherwise, unremarkable unopacified loops of small and large bowel are identified. There is no pelvic free fluid. The urinary bladder is partially filled. A Eason catheter is in place. There is neither pelvic nor inguinal lymphadenopathy. Bone windows: Neither sclerotic nor lytic bone lesions are identified. IMPRESSION: Several punctate nonobstructive right renal calculi. No hydronephrosis. Moderate bilateral pleural effusions with associated bibasilar airspace disease. Infection cannot be excluded. Cardiomegaly and small pericardial effusion. Sigmoid diverticulosis without evidence of diverticulitis.
--- NOTE | 2017-08-02 21:36 | CT SCAN REPORT ---
EXAMINATION: CT HEAD AND CERVICAL SPINE CLINICAL INFORMATION: Fall. Evaluate for acute intracranial hemorrhage. Evaluate for fracture. COMPARISON: Head CT 09/02/2010, cervical spine CT 09/03/2010 TECHNIQUE: Cost Control Supervisor images were obtained. A CT acquisition of the head and cervical spine was performed without the intravenous administration of contrast. Data was reformatted into multiplanar images at the acquisition workstation. DLP: 987.3 mGy-cm. FINDINGS: Head: There is no acute intracranial hemorrhage or abnormal extra-axial collection. No intracranial mass effect or midline shift. Lateral and third ventricles are proportionate to the subarachnoid spaces. No hydrocephalus. Culp-white matter differentiation is grossly preserved and there is no evidence of acute territorial infarct. The calvarium and skull base are intact. Mastoid air cells and middle ear cavities are well aerated. Visualized paranasal sinuses are well aerated. Cervical spine: There is near-anatomic alignment and position of the vertebral bodies and posterior elements of the cervical spine in the sagittal dimension. Vertebral heights are preserved. There is no acute fracture. No abnormal prevertebral soft tissue swelling. Soft tissues of the neck including the thyroid gland are normal. Small layering pleural effusions are partially visualized within the apices of both hemithoraces. IMPRESSION: No acute intracranial hemorrhage. No acute cervical spine fracture. Although only partially visualized within the [id number] of this examination there are layering pleural effusions on both sides.
[2017-08-02 22:00] VITALS: BP 150/75
[2017-08-02 23:00] VITALS: BP 132/65
[2017-08-02 23:25] LABS: PTT > 120 SEC (25-37)
[2017-08-03] VITALS (10 sets, daily range): BP systolic 112–170; BP diastolic 63–82
[2017-08-03 05:49] LABS: ABSOLUTE BASOPHIL COUNT 0 /CUMM (0.0-0.2); ABSOLUTE EOSINOPHIL COUNT 0 /CUMM (0.0-0.7); ABSOLUTE GRANULOCYTE CT 10.6 /CUMM (1.4-6.5); ABSOLUTE LYMPH COUNT 0.7 /CUMM (1.2-3.4); ABSOLUTE MONOCYTE COUNT 0.7 /CUMM (0.10-0.60); BASOPHIL % 0.1 % (0.0-2.0); EOSINOPHIL % 0 % (0-5); GRANULOCYTE % 87.7 % (42.2-75.2); MEAN CORPUSCULAR HGB 31.9 PG (27.0-31.0); MEAN CORPUSCULAR VOLUME 96.7 FL (80.0-94.0); PLATELET COUNT 137 /CUMM (130-400); PT 22.2 SEC (9.4-12.5); PTT 68 SEC (25-37); RBC DISTRIBUTION WIDTH 16.8 % (11.5-14.5); RED BLOOD CELL CT 4.87 /CUMM (4.70-6.10); WHITE BLOOD CELL COUNT 12.1 /CUMM (4.8-10.8)
[2017-08-03 05:58] LABS: HEMATOCRIT 47.1 % (42-52)
--- NOTE | 2017-08-03 07:44 | PN- Resident CRCU ---
Subjective HPI/CRCU Issues: The patient was seen and examined in the morning. Minimally responsive to painful stimuli, moaning. Noted to have pinpoint pupils, did not respond to Narcan 2. He has received 2 doses of 0.5 IV Ativan yesterday(Last dose 20:24). On IV heparin and IV Cardizem, ME aspirin. IV azithromycin, ceftriaxone. Objective Vital Signs & I&O Last 8 Hrs of Vitals and I&O: Intake & Output 08/03 1600 Intake Total 209 Output Total 350 Balance -141 Intake, IV 209 Output, Urine 350 Patient 233 lb Weight Weight Bed scale Measurement Method Exam General Appearance: Obtunded, moves spontaneously, normal tone, response wnl to tactile stimuli in feet, withdraw from pain, toes downward b/l, pipoint pupils noted which dilates when patient's head is moved. Head: atraumatic Ears, Nose, Throat: brisk corneal reflex b/l Neck: supple Respiratory: b/l rhonchi Cardiovascular: regular rate/rhythm Extremities: b/l pedal edema w/erythema, hyperkeratotic yellow nails in poor hygene., right toe with scab, decreased pulsation b/l, chronic venous stasis changes Cranial Nerves: Doll's eye normal. IGLESIA, EOMI, Tongue midline Skin: warm/dry, See extremities exam Skin Temp/Moisture Exam: Warm/Dry Other Physical Findings: Kernig and Brudzinski sign negative Current Medications: Current Medications Sig/Richard Start time Last Medication Dose Route Stop Time Status Admin Aspirin 300 MG 0300 08/04 0300 AC ME Aspirin 325 MG DAILY 08/02 2345 CAN PO Aspirin 300 MG DAILY 08/02 2345 DC 08/03 ME 0324 Azithromycin 500 MG DAILY@08/03 1900 AC Dextrose/Water 250 ML IV Azithromycin 500 MG ONCE ONE 08/02 2300 DC 08/02 Dextrose/Water 250 ML IV 08/02 2359 2334 Ceftazidime 1,000 MG ONCE ONE 08/02 1930 CAN IV 08/02 193 Ceftriaxone Sodium 2,000 MG DAILY@08/03 1900 AC IV Ceftriaxone Sodium 2,000 MG ONCE ONE 08/02 2300 DC 08/02 IV 08/02 2301 2335 Cyanocobalamin/ 1 BAG DAILY 08/03 1415 AC 08/03 Thiamine/Pyridoxine IV 1611 Dextrose/Water 1,000 ML Diltiazem HCl 125 MG Q24H 08/02 1430 AC 08/03 Sodium Chloride 100 ML IV 1611 Furosemide 20 MG ONCE ONE 08/02 2315 DC 08/02 IV 08/02 2316 2336 Furosemide 40 MG ONCE ONE 08/02 2100 CAN IV 08/02 2101 Heparin Sodium 25,000 UNIT Q24H / 1545 AC 08/03 (Porcine) IV 1754 Sodium Chloride 500 ML Lorazepam 1 MG Q1 PRN 08/02 2330 DC IV Lorazepam 0 .STK-MED ONE 08/02 202 DC .ROUTE Lorazepam 0.5 MG ONCE ONE 08/02 2000 DC 08/02 IV 08/02 Lorazepam 0.5 MG ONCE PRN 08/02 2000 DC IV 08/02 2359 Naloxone HCl 0.4 MG Q1 08/03 1000 DC 08/03 IV 08/03 1101 0950 Naloxone HCl 0.4 MG ONCE ONE 08/03 0945 CAN SC 08/03 0946 Nystatin 1 CYN BID PRN 08/03 0645 AC TOP Pantoprazole Sodium 40 MG DAILY 08/03 1000 AC 08/03 IV 0926 Phytonadione 10 MG ONCE ONE 08/03 1415 DC / SC 08/03 1416 1611 Sodium Chloride 1,000 ML ONCE ONE 08/02 1430 DC 08/02 IV 08/02 2109 1430 Thiamine HCl 100 MG Q8H 08/02 2330 AC 08/03 Sodium Chloride 50 ML IV 1611 Vancomycin HCl 1,500 MG ONCE ONE 08/02 2030 DC 08/02 Dextrose/Water 250 ML IV 08/02 2159 2334 Impression/Plan Impression/Problem List Impression: This is a 72 -year-old male with past medical history significant for CHF, hypertension who presented with altered mental status. He was brought to the hospital after being found unresponsive in his apartment. While in the ED, he was noted to be in A. fib with RVR requiring multiple doses of IV Lopressor and Cardizem drip. He also underwent cardioversion. Subsequently was admitted to the ICU for further monitoring. Problem list/plan: #AMS: * Head CT was negative on admission for any acute intracranial pathology. * Repeat head CT was negative this morning. * Neurology suggesting another city this evening to rule out any hemorrhage. * Continue with neuro checks * NPO * Neurology consult appreciated Will follow recommendations * MRI brain - at minimum DWI sequence. * EEG * Avoid Ativan * Check ammonia level * ID consult appreciated * ESR, LIYAH, vit B12 level #AFIB RVR: S/P synch cardioversion. EKG showed rate 190, irregularly irregular rhythm, evidence of RBBB and L fascicular block. TFT WNL. * Monitor on tele * Heparin drip * C/w Diltiazem drip * Follow cardiology recommendation #Elevated Troponin: First trop 1.71, EKG a.fib RVR. THought to be secondary to demand due to tachycardia and less likely plaque rupture. * Troponin peaked * Echo:1. Low normal EF of 50% with inferoapical and apical hypokinesis. 2. Large apical thrombus. 3. Moderate left ventricular hypertrophy. 4. Moderate left atrial enlargement. 5. Mild mitral regurgitation. 6. Mild tricuspid regurgitation. 7. Mild pulmonary hypertension. 8. Small pericardial effusion. * ASA 300 ME * On heparin drip #CHF: Echo from 2009 shows EF 35% but from 2010 shows EF 65% with hyperdynamic LV and mild LAE. Pt has significant LE edema, and cxr with evidence of volume overload raising concern for decompensated heart failure. BNP 4650, no previous value. * Echo as above * Appreciate cardio recs * Strict I/O * Eason placed #Chronic vs Acute Renal Failure: * Creatinine are worsening to 2.3 * Cont monitor * avoid nepro toxins * Renal consult appreciated, will follow recommendations. * Follow up UProt, UCr, UMicroalbumin,C3, C4 (for infection related GN), Hepatitis B, C and HIV testing,SPEP, UPEP, KLFLC * UA * Urine lytes #Hypoxic respiratory failure: Pt was O2 sat 89 when he first presented. CXR with evidence of volume overload and ? bibasliar opacity * ID consult appreciated * If febrile broad abx coverage (vancomycin/CTX/ampicillin/acyclovir); and once feasible LP to r/o infection (CSF analysis cell count, glucose, protein, HSV and VZV DNA PCR in CSF, bacterial, fungal and mycobactereial culture; save one tube for further testing). #Transamanitis: Tbili 3.1, AST 119, ALT 76. INR elevated to 2. Not on AC. Pt has unknown hx etoh consumption. DDX: etoh, drug induced, and given abdominal pain on exam cholelithiasis/cystitis. * UTOX tested * CIWA protocol * Con't monitor * CT- ABD:Several punctate nonobstructive right renal calculi. No hydronephrosis.Moderate bilateral pleural effusions with associated bibasilar airspacedisease. Infection cannot be excluded.Cardiomegaly and small pericardial effusion.Sigmoid diverticulosis without evidence of diverticulitis. * Fractionate Bili * Consider RUQ US * IV Hi-dose thiamine q8 for 3 doses #Lactic acidosis-resolved: Could be secondary to RVR and hypotension leading to ischemia and also elevated troponin. -Being treated for possible infection as trigger for afib with RVR. However, note he has been afebrile with WBC WNL. Possible sources include PNA, cellulitis of LLE, UTI, ABD source given pain, cannot rule out meningits however less likely given no fever, and negative Gladis Mcdonald. His AMS really started AFTER admission. * ID recommendations as above * Blood cultures * urine culture * sputum culture * flu swab FC IV Heparin NPO Problem List: 1. Rapid atrial fibrillation 2. Elevated troponin Pain Ratin Tomorrow's Labs & Rationales: CBC to monitor H&H ICU bundle to monitor electrolytes Plan DVT/Prophylaxis: pharmacological
--- NOTE | 2017-08-03 09:54 | Event Note ---
Event Note Event Note: Called and updated brother and son (Jose Pike : [phone]) regarding patient's continued obtundation. They are in agreement with repeat CT head and if needed lumbar puncture. He is also to be full code with central lines if needed. Neurology consult placed. Per IR he does not have indication for IR guided LP. Per son as he has been having flu like symptoms, he has been taking nyquil and mostly likely having poor po intake the last few days. 2.03pm. Telephone consent obtained from son for transfusion of blood and blood products (witness Dr. Lang). Consent form in chart.
--- NOTE | 2017-08-03 10:23 | ULTRASOUND REPORT ---
EXAMINATION: BILATERAL LOWER EXTREMITY VENOUS ULTRASOUND CLINICAL INFORMATION: Lower extremity edema. Suspect DVT. COMPARISON: None TECHNIQUE: Doppler spectral analysis and color flow Doppler imaging was performed of the lower extremities. Compression and augmentation maneuvers were performed. FINDINGS: Evaluation was performed portably in the CR see you. Severe edema is noted in the calves. The right and left common femoral vein, greater saphenous vein takeoff, femoral vein, and popliteal vein are normally compressible with normal augmentation responses and phasic changes seen with Doppler imaging. The midcalf peroneal and posterior tibial veins are patent as well. No popliteal cyst is seen. IMPRESSION: No evidence of deep venous thrombosis in the right or left lower extremity.
--- NOTE | 2017-08-03 10:32 | PN- CRCU ---
See Addendum Subjective HPI/Critical Care Issues: Continues to be less reponsive Afebrile Pinpoint pupils Moves all limbs NO response to narcan Objective Current Medications: Current Medications Sig/Richard Start time Last Medication Dose Route Stop Time Status Admin Aspirin 300 MG 0300 08/04 0300 AC NV Aspirin 325 MG DAILY 08/02 2345 CAN PO Aspirin 300 MG DAILY 08/02 2345 DC 08/03 NV 0324 Azithromycin 500 MG ONCE ONE 08/02 2300 DC 08/02 Dextrose/Water 250 ML IV 08/02 2359 2334 Ceftazidime 1,000 MG ONCE ONE 08/02 1930 CAN IV 08/02 1931 Ceftriaxone Sodium 2,000 MG ONCE ONE 08/02 2300 DC 08/02 IV 08/02 2301 2335 Diltiazem HCl 10 MG ONCE ONE 08/02 1530 CAN IV 08/02 1531 Diltiazem HCl 10 MG ONCE ONE 08/02 1500 DC 08/02 IV 08/02 1501 1506 Diltiazem HCl 0 .STK-MED ONE 08/02 1436 DC IV Diltiazem HCl 10 MG ONCE ONE 08/02 1430 DC 08/02 IV 08/02 1431 1430 Diltiazem HCl 125 MG Q24H 08/02 1430 AC 08/02 Sodium Chloride 100 ML IV 1446 Diltiazem HCl 0 .STK-MED ONE 08/02 1426 DC .ROUTE Furosemide 20 MG ONCE ONE 08/02 2315 DC 08/02 IV 08/02 2316 2336 Furosemide 40 MG ONCE ONE 08/02 2100 CAN IV 08/02 2101 Heparin Sodium 0 .STK-MED ONE 08/02 1613 DC (Porcine) .ROUTE Heparin Sodium 5,000 UNIT ONCE ONE 08/02 1545 DC 08/02 (Porcine) IV 08/02 1546 1636 Heparin Sodium 25,000 UNIT Q24H 08/02 1545 AC 08/02 (Porcine) IV 1636 Sodium Chloride 500 ML Lorazepam 1 MG Q1 PRN 08/02 233 DC IV Lorazepam 0 .STK-MED ONE 08/02 202 DC .ROUTE Lorazepam 0.5 MG ONCE ONE 08/03 1999 DC 08/02 IV 08/02 Lorazepam 0.5 MG ONCE PRN 08/03 1999 DC IV 08/02 2358 Lorazepam 0.5 MG ONCE ONE 08/02 1845 DC 08/02 IV 08/02 1846 1844 Lorazepam 0 .STK-MED ONE 08/02 1832 DC .ROUTE Lorazepam 0.5 MG ONCE ONE 08/02 1830 DC 08/02 IV 08/02 1831 1835 Metoprolol Tartrate 0 .STK-MED ONE 08/02 1720 DC IV Metoprolol Tartrate 5 MG ONCE ONE 08/02 1715 DC 08/02 IV 08/02 1716 1720 Metoprolol Tartrate 0 .STK-MED ONE 08/02 1537 DC IV Metoprolol Tartrate 5 MG ONCE ONE 08/02 1530 DC 08/02 IV 08/02 1531 1548 Naloxone HCl 0.4 MG Q1 08/03 1000 AC 08/03 IV 08/03 1101 0950 Naloxone HCl 0.4 MG ONCE ONE 08/03 0945 CAN SC 08/03 0946 Nystatin 1 CYN BID PRN 08/03 0645 AC TOP Pantoprazole Sodium 40 MG DAILY 08/03 1000 AC 08/03 IV 0926 Sodium Chloride 1,000 ML ONCE ONE 08/02 1430 DC 08/02 IV 08/02 2109 1430 Thiamine HCl 100 MG Q8H 08/02 2330 AC 08/03 Sodium Chloride 50 ML IV 0823 Vancomycin HCl 1,500 MG ONCE ONE 08/02 2030 DC 08/02 Dextrose/Water 250 ML IV 08/02 2159 2334 Vital Signs & I&O Last 24 Hrs of Vitals and I&O: Vital Signs Date Time Temp Pulse Resp B/P B/P Pulse O2 O2 Flow FiO2 Mean Ox Delivery Rate 08/03 08 96.6 78 24 120/80 08/03 08 94 Nasal 4.0L Cannula 08/03 08 96.6 78 24 120/80 94 Nasal 4.0L Cannula 08/03 0600 80 30 112/72 08/03 0356 94 Nasal 4.0L Cannula 08/03 0200 88 26 129/63 08/03 0000 96.9 93 25 135/64 08/03 0000 95 Nasal 4.0L Cannula 08/02 2300 96.9 82 28 132/65 96 Nasal 4.0L Cannula 08/02 2200 97.7 82 23 150/75 08/020 97.7 83 23 150/75 08/02 2130 94 Nasal 4.0L Cannula 08/02 2033 96.8 81 20 110/60 936 Nasal 4.0L Cannula 08/02 1904 89 118/66 08/02 1849 166 18 86/60 08/02 1726 158 22 92/70 100 Nasal 4.0L Cannula 08/02 1720 172 92/60 08/02 1715 175 22 92/60 95 Nasal 4.0L Cannula 08/02 1548 176 100/60 08/02 1528 Nasal 4.0L Cannula 08/02 1519 97.0 176 24 100/60 93 Nasal 3.0L Cannula 08/02 1506 180 20 110/78 08/02 1430 199 119/59 08/02 1419 97.4 185 20 119/59 89 Room Air Intake & Output 08/03 1600 / 0800 08/03 0000 Intake Total 1850 1140 Output Total 100 430 Balance 1750 710 Intake, IV 1850 1140 Intake, Oral 0 0 Number 0 0 Bowel Movements Output, Urine 100 430 Patient 246 lb Weight Weight Bed scale Measurement Method Impression/Plan Impression/Plan Impression/Plan: SIGNIFICANT DATA Creatinine 2.3 which is increased since admission from 1.8 Urine output seems to be adequate Ethan gap is 10 Lactic acid was 2.2 which has improved His previous CPK was 394 troponin was elevated at 1.74 proBNP was elevated Tox screen was unremarkable White count up to 12.1, hemoglobin now down to 15.6, platelets adequate at 137 his INR which was elevated upon admission seems to be stabilizing his PTT now adequate His baseline albumin appears to be low at 3.0 upon admission, his bilirubin which was 3.1 as improved to 2.[address] scan of the abdomen and pelvis reviewed which showed no biliary sepsis bilateral pleural effusion bibasal atelectasis cardiomegaly small pericardial effusion noted diverticulitis normal gallbladder are no evidence of gallbladder wall thickening Physical Exam General Appearance Moderate Distress, unreponsive to painful stimuli Skin SEVERAL OPEN SORES IN BILAT LE Sepsis Skin Exam (color): Flushed HEENT Atraumatic, PERRLA Cardiovascular in sinus with frequent pac and mac Lungs Finn rhonchi apprciated. unsure if sounds are upper airway Abdomen obese. he complaines of some tenderness diffusely Neurological unrepsonsive and moves all limbs Extremities 4+ edema above knees. chronic stasis skin changes in bilat LE. LLE with erythema in calf that is warm Echocardiogram reviewed which showed low ejection fraction of 50% with inferior apical and apical hypokinesis large apical thrombus. IMPRESSION This is a 72-year-old gentleman with history of diabetes, previous heart failure diastolic, previous syncope, came into the hospital as was brought in from his home as his landlord found him on the floor. Patient apparently had had a previous fall in the snow as well. In the emergency room he was noted to have significant atrial fibrillation with tachycardia and he was hypotensive and hemodynamically unstable and had to have emergent cardioversion as his blood pressure was slow and he was unstable. Per history he has been non-compliant and has not seen any physicians in the recent past., Initially pt was conversant but slightly confused and since arriving in the ed he became less responsive and agitated requiring ativan and now appears to be worse with worsening mental status, with no fever (Apparently was lucid when he came in and he did not have any temperature and he was not complaining of a headache). Subsequently he became more confused and had to require large doses of Ativan as he was cardioverted emergently by Dr. Hitchcock. ISSUES * Recent worsening overall mental status status post fall with no clinical evidence suggestive of significant meningitis, however this may need to be ruled out. Apparently his mental status when he came in was relatively stable and patient now has decreased mentation due to delirium and Ativan, and rule out brain stem stroke (lv clot and pafib) (now with bilateral pinpoing pupils and no response to narcan) * Unlikely sig bacterial infection or viral meningitis with no fever or head ache upon arrival and was lucid upon admissin with rapid deterioration * Initial unstable Rapid atrial fibrillation with significantly large intraventricular clot with probable stroke syndrome, now on heparin and initial ct neg so far * Mild Hypoxemic respiratory insuff due to fluid overload, aspiration pneumonia * Lactic acidosis due to low flow state related to hypotension from his rapid atrial fibrillation, and prob sepsis as he may have aspiration pneumonia as well * Total body fluid overload with lower extremity edema with bilateral pleural effusion, atelectasis, clinical evidence suggestive of systolic and diastolic heart failure, with congested liver, with elevated bili and INR which is improving * Type II RI versus Acute coronary syndrome seen by cardiology * Bilateral pulmonary infiltrates with thick yellow-green sputum suggestive of pneumonia rule out aspiration pneumonitis * Chronic kidney disease with acute renal insufficiency, due to low flow state * Rule out venous thromboembolism. Patient is not a candidate for CTA due to kidney disease and he is being heparinized anyway. As his blood pressures stable and no evidence suggestive of significant RV dysfunction unlikely that he has a significant PE however he may have a DVT * Recent Worsening performance status with previous hypertension hyperlipidemia and medical noncompliance Recommendation * Intravenous heparin as he has a large intraventricular clot * Rpt head ct to rule out evolving stroke * Continue diltiazem per cardiology * Broad-spectrum antibiotics including vancomycin, azithromycin and high-dose ceftriaxone, to continue * Sputum culture * ID consult and neuro consult today * IR consult for LP * VIt k sub cut 10 mg today * low threshold for intubation for airway protection * Avoid lorazepam * EKG and check qtc * Cardio following * Keep the head of bed elevated * Intravenous proton pump inhibitor daily * Neurochecks * Low threshold for intubation overnight * Eason catheter * Judicious use of IV fluids change to D5 normal with banana bag aswell * Sputum culture * If his blood pressure stabilizes 1 dose of intravenous Lasix may be tried * Lower extremity Doppler Patient is critically ill total time spent 45 minutes
--- NOTE | 2017-08-03 11:28 | CT SCAN REPORT ---
EXAMINATION: CT HEAD WITHOUT CONTRAST CLINICAL INFORMATION: Altered mental status. COMPARISON: CT scan of the head 08/02/2017. TECHNIQUE: Contiguous axial imaging was performed from the skull base to vertex without intravenous administration of contrast. DLP: 1628 mGy-cm FINDINGS: Patient motion degrades image quality therefore the diagnostic accuracy of this examination is limited. There is no acute intracranial hemorrhage or abnormal extra axial collection. No intracranial mass effect or midline shift. Lateral and third ventricles are proportionate to the subarachnoid spaces. No hydrocephalus. Culp-white matter differentiation is grossly preserved and there is no evidence of acute territorial infarct. The calvarium and skull base are grossly intact. Mastoid air cells and middle ear cavities are well-aerated. Visualized paranasal sinuses are well-aerated. IMPRESSION: Patient motion degrades image quality therefore the diagnostic accuracy of this examination is limited. Grossly no evidence of acute territorial infarct or hemorrhage.
--- NOTE | 2017-08-03 11:40 | Cons- Nephrology ---
General Information and HPI Consulting Request Date of Consult: 08/03/17 Requested By: Amelia KOEHLER,Kurt Robles Reason for Consult: RICHI Source of Information: old records Exam Limitations: clinical condition History of Present Illness: Patient is a 72-year-old man with a past medical history most significant for what appears to be a baseline creatinine of 1.1, baseline normal cardiac function as assessed in 2014, hypertension reportedly on lisinopril (although not clear that he's taking any medicines) who presents with altered mental status. Patient is completely intended in am unable to get any history from him, however , the patient was reportedly found in his apartment after his landlord was unable to get in touch with him. He looked else was brought in by ambulance. On Presentation, initial blood pressure 119/59 - afebrile. He was found to be in A. fib with RVR with a heart rate up to 199 requiring pushes of Lopressor and a Cardizem drip. This was complicated by hypotension. he ultimately required cardioversion. Mental status noted to deteriorate on the ED. He was subsequently admitted to the ICU. Initial labs notable for white count 10.7, hemoglobin 17.5, platelets 151, creatinine 2.3, bicarbonate 28 lactate 2.3, phosphorus 5.7, elevated AST 95, troponin 1.74, albumin 3.0. Urinalysis with 100 protein/10 to 15 red blood cell /3-5 white blood cell. urine tox screen negative. Imaging includes chest x-ray with cardiomegaly and central vascular congestion with bibasilar opacities suspicious for pneumonia. CT imaging performed notable for moderate bilateral pleural effusions. Renal ultrasound noted for right kidney 12.3 cm left kidney 8.2 cm without evidence of hydronephrosis but did note bilateral renal cortical thinning. Echocardiogram with EF of 50% with a large apical thrombus and moderate LVH. Dopplers of the legs negative for DVT. Allergies/Medications Allergies: Coded Allergies: No Known Allergies (08/02/17) Home Med List: Aspirin (Adult Low Dose Aspirin EC) 81 MG TABLET.DR 1 TAB PO DAILY HEART/BLOOD (Reported) Carvedilol 25 MG TABLET 1 TAB PO BID HEART/BP (Reported) Lisinopril 20 MG TABLET 1 TAB PO DAILY BP (Reported) Current Medications: Current Medications Sig/Richard Start time Last Medication Dose Route Stop Time Status Admin Aspirin 300 MG 0300 08/04 0300 AC KS Aspirin 325 MG DAILY 08/02 2345 CAN PO Aspirin 300 MG DAILY 08/02 2345 DC 08/03 [place] 0324 Azithromycin 500 MG ONCE ONE 08/02 2300 DC 08/02 Dextrose/Water 250 ML IV 08/02 2359 2334 Ceftazidime 1,000 MG ONCE ONE 08/02 1930 CAN IV 08/02 1931 Ceftriaxone Sodium 2,000 MG ONCE ONE 08/02 2300 DC 08/02 IV 08/02 2301 2335 Diltiazem HCl 10 MG ONCE ONE 08/02 1530 CAN IV 08/02 1531 Diltiazem HCl 10 MG ONCE ONE 08/02 1500 DC 08/02 IV 08/02 1501 1506 Diltiazem HCl 0 .STK-MED ONE 08/02 1436 DC IV Diltiazem HCl 10 MG ONCE ONE 08/02 1430 DC 08/02 IV 08/02 1431 1430 Diltiazem HCl 125 MG Q24H 08/02 1430 AC 08/02 Sodium Chloride 100 ML IV 1446 Diltiazem HCl 0 .STK-MED ONE 08/02 1426 DC .ROUTE Furosemide 20 MG ONCE ONE 08/02 2315 DC 08/02 IV 08/02 2316 2336 Furosemide 40 MG ONCE ONE 08/02 2100 CAN IV 08/02 2101 Heparin Sodium 0 .STK-MED ONE 08/02 1613 DC (Porcine) .ROUTE Heparin Sodium 5,000 UNIT ONCE ONE 08/02 1545 DC 08/02 (Porcine) IV 08/02 1546 1636 Heparin Sodium 25,000 UNIT Q24H 08/02 1545 AC 08/02 (Porcine) IV 1636 Sodium Chloride 500 ML Lorazepam 1 MG Q1 PRN 08/02 2330 DC IV Lorazepam 0 .STK-MED ONE 08/02 202 DC .ROUTE Lorazepam 0.5 MG ONCE ONE 08/03 1999 DC 08/02 IV 08/02 Lorazepam 0.5 MG ONCE PRN 08/03 1999 DC IV 08/02 2358 Lorazepam 0.5 MG ONCE ONE 08/02 184 DC 08/02 IV 08/02 184 1844 Lorazepam 0 .STK-MED ONE 08/02 183 DC .ROUTE Lorazepam 0.5 MG ONCE ONE 08/02 1830 DC 08/02 IV 08/02 1831 1835 Metoprolol Tartrate 0 .STK-MED ONE 08/02 1720 DC IV Metoprolol Tartrate 5 MG ONCE ONE 08/02 1715 DC 08/02 IV 08/02 1716 1720 Metoprolol Tartrate 0 .STK-MED ONE 08/02 1537 DC IV Metoprolol Tartrate 5 MG ONCE ONE 08/02 1530 DC 08/02 IV 08/02 1531 1548 Naloxone HCl 0.4 MG Q1 08/03 1000 DC 08/03 IV 08/03 1101 0950 Naloxone HCl 0.4 MG ONCE ONE 08/03 0945 CAN SC 08/03 0946 Nystatin 1 CYN BID PRN 08/03 0645 AC TOP Pantoprazole Sodium 40 MG DAILY 08/03 1000 AC 08/03 IV 0926 Sodium Chloride 1,000 ML ONCE ONE 08/02 1430 DC 08/02 IV 08/02 2109 1430 Thiamine HCl 100 MG Q8H 08/02 2330 AC 08/03 Sodium Chloride 50 ML IV 0823 Vancomycin HCl 1,500 MG ONCE ONE 08/02 2030 DC 08/02 Dextrose/Water 250 ML IV 08/02 2159 2334 Review of Systems Review of Systems: Unable to obtain 2/2 obtundation Past History Travel History Traveled to [place] past 21 day No Medical History Blood Transfusion Hx: No EENT: NONE Cardiovascular: hypertension, myocardial infarction, syncope Respiratory: NONE Gastrointestinal: NONE Hepatic: NONE Renal: NONE Musculoskeletal: NONE Psychiatric: NONE Endocrine: NONE Blood Disorders: NONE Cancer(s): NONE OVEN BUILDER/Reproductive: NONE Surgical History Surgical History: non-contributory Psychosocial History Where Do You Live? Home Services at Home: None Smoking Status: Never Smoked ETOH Use: occasional use Illicit Drug Use: denies illicit drug use Exam & Diagnostic Data Vital Signs and I&O Vital Signs Date Time Temp Pulse Resp B/P B/P Pulse O2 O2 Flow FiO2 Mean Ox Delivery Rate 08/03 08 96.6 78 24 120/80 08/03 0800 94 Nasal 4.0L Cannula 08/03 08 96.6 78 24 120/80 94 Nasal 4.0L Cannula 08/03 0600 80 30 112/72 08/03 0356 94 Nasal 4.0L Cannula 08/03 0200 88 26 129/63 03/ 0000 96.9 93 25 135/64 03/ 0000 95 Nasal 4.0L Cannula 08/02 2300 96.9 82 28 132/65 96 Nasal 4.0L Cannula 08/02 2200 97.7 82 23 150/75 08/02 2200 97.7 83 23 150/75 08/02 2130 94 Nasal 4.0L Cannula 08/02 2034 96.8 81 20 110/60 936 Nasal 4.0L Cannula 08/02 1904 89 118/66 08/02 1849 166 18 86/60 08/02 1726 158 22 92/70 100 Nasal 4.0L Cannula 08/02 1720 172 92/60 08/02 1715 175 22 92/60 95 Nasal 4.0L Cannula 08/02 1548 176 100/60 08/02 1528 Nasal 4.0L Cannula 08/02 1519 97.0 176 24 100/60 93 Nasal 3.0L Cannula 08/02 1506 180 20 110/78 08/02 1430 199 119/59 08/02 1419 97.4 185 20 119/59 89 Room Air Intake & Output 08/03 1600 08/03 0400 08/02 1600 08/02 0400 08/01 1600 08/01 0400 Intake Total 1850 1140 Output Total 100 430 Balance 1750 710 Intake, IV 1850 1140 Intake, Oral 0 0 Number 0 0 Bowel Movements Output, Urine 100 430 Patient 246 lb 208 lb Weight Weight Bed scale Reported by Patient Measurement Method Physical Exam: Gen - obtunded, in 4 point restraint, ill appearing Head - NCAT Eyes - anicteric sclera, unable to fully assess extraocular muscles Neck - supple, JVP visible CV - RRR, no m/r/g Chest - clear anteriorly, no w/r/r Abd - soft, NTND Upper ext - warm, trace edema Lower ext - warm, 1+ edema Skin - multiple lesions/excoriations on legs, no jaundice Neuro - obtunded, unable to assess orientation Results Pertinent Lab Results: Laboratory Tests 08/03 08/03 08/03 0950 0838 0525 Chemistry Lactic Acid (0.7 - 2.1 mmol/L) 2.2 H 2.3 H Toxicology Urine Opiates Screen (>2000 NG/ML) < 100 Methadone Screen (>300 NG/ML) < 40 Barbiturate Screen (>200 NG/ML) < 60 Ur Phencyclidine Scrn (>25 NG/ML) < 6.00 Amphetamines Screen (>1000 NG/ML) < 100 U Benzodiazepines Scrn (>200 NG/ML) < 85 Urine Cocaine Screen (>300 NG/ML) < 50 Urine Cannabis Screen (>50 NG/ML) < 5.00 08/03 0308/02 0525 0150 2222 Chemistry Sodium (137 - 145 mmol/L) 141 Potassium (3.5 - 5.1 mmol/L) 4.1 Chloride (98 - 107 mmol/L) 103 Carbon Dioxide (22 - 30 mmol/L) 28 Anion Gap (5 - 16) 10 BUN (9 - 20 mg/dL) 62 H Creatinine (0.7 - 1.2 mg/dL) 2.3 H Estimated GFR (>60 ml/min) 28 L Glucose (65 - 99 mg/dL) 104 H Lactic Acid (0.7 - 2.1 mmol/L) 2.5 H 3.2 H Calcium (8.4 - 10.2 mg/dL) 9.2 Phosphorus (2.5 - 4.5 mg/dL) 5.7 H Magnesium (1.6 - 2.3 mg/dL) 2.0 Total Bilirubin (0.2 - 1.3 mg/dL) 2.1 H AST (17 - 59 U/L) 95 H ALT (21 - 72 U/L) 70 Troponin I (<0.11 ng/ml) 1.74 *H 1.98 *H Albumin (3.5 - 5.0 g/dL) 2.3 L Coagulation PT (9.4 - 12.5 SEC) 22.2 H INR (0.90 - 1.17) 2.13 H APTT (25 - 37 SEC) 68 H > 120 *H Hematology CBC w Diff MAN DIFF ORDERED WBC (4.8 - 10.8 /CUMM) 12.1 H RBC (4.70 - 6.10 /CUMM) 4.87 Hgb (14.0 - 18.0 G/DL) 15.6 Hct (42 - 52 %) 47.1 MCV (80.0 - 94.0 FL) 96.7 H MCH (27.0 - 31.0 PG) 31.9 H MCHC (33.0 - 37.0 G/DL) 33.0 RDW (11.5 - 14.5 %) 16.8 H Plt Count (130 - 400 /CUMM) 137 MPV (7.4 - 10.4 FL) 8.0 Gran % (42.2 - 75.2 %) 87.7 H Lymphocytes % (20.5 - 51.1 %) 6.2 L Monocytes % (1.7 - 9.3 %) 6.0 Eosinophils % (0 - 5 %) 0 Basophils % (0.0 - 2.0 %) 0.1 Absolute Granulocytes (1.4 - 6.5 /CUMM) 10.6 H Segmented Neutrophils (42.2 - 75.2 %) 95 H Absolute Lymphocytes (1.2 - 3.4 /CUMM) 0.7 L Lymphocytes (20.5 - 51.1 %) 3 L Monocytes (1.7 - 9.3 %) 2 Absolute Monocytes (0.10 - 0.60 /CUMM) 0.7 H Absolute Eosinophils (0.0 - 0.7 /CUMM) 0 Absolute Basophils (0.0 - 0.2 /CUMM) 0 Platelet Estimate (ADEQUATE) ADEQUATE Polychromasia 1+ Poikilocytosis 1+ Ovalocytes 1+ [place] Cells FEW Other Body Source Fld Total RBCs Counted (%) 100 08/02 08/02 1836 1810 Blood Gas pH (7.35 - 7.45 PH) 7.41 pCO2 (35 - 45 TORR) 33 L pO2 (80 - 100 TORR) 92 HCO3 (21 - 28 MEQ/L) 21 ABG O2 Sat (Measured) (>96.0 %) 96.0 P-50 (Temp Corrected) N Carboxyhemoglobin (1.5 - 5.0 %) 0.2 L O2 Concentration % 4L Temperature (97.0 - 100.0 FARH) 97.0 O2 Delivery Method VA Chemistry Lactic Acid (0.7 - 2.1 mmol/L) 4.3 H Miscellaneous Phlebotomy Draw Site RIGHT RADIAL 08/02 08/02 08/02 1635 1635 1517 Chemistry Lactic Acid (0.7 - 2.1 mmol/L) 3.3 H Coagulation PT (9.4 - 12.5 SEC) 21.7 H INR (0.90 - 1.17) 2.08 H APTT (25 - 37 SEC) 32 D-Dimer High Sensitivty (0 - 243 ng/ml) 3108 H Toxicology Urine Opiates Screen (>2000 NG/ML) < 100 Methadone Screen (>300 NG/ML) < 40 Barbiturate Screen (>200 NG/ML) < 60 Ur Phencyclidine Scrn (>25 NG/ML) < 6.00 Amphetamines Screen (>1000 NG/ML) < 100 U Benzodiazepines Scrn (>200 NG/ML) < 85 Urine Cocaine Screen (>300 NG/ML) < 50 Urine Cannabis Screen (>50 NG/ML) < 5.00 Urines Urine Color (YEL,AMB,STR) YEL Urine Clarity (CLEAR) HAZY H Urine pH (5.0 - 8.0) 6.0 Ur Specific [place] (1.001 - 1.035) 1.025 Urine Protein (NEG,<30 MG/DL) 100 H Urine Ketones (NEG) TRACE H Urine Nitrite (NEG) NEG Urine Bilirubin (NEG) NEG@ICTO Urine Urobilinogen (0.1 - 1.0 EU/dl) 2.0 H Ur Leukocyte Esterase (NEG) NEG Ur Microscopic SEDIMENT EXAMINED Urine RBC (0 - 5 /HPF) 10-15 H Urine WBC (0 - 2 /HPF) 3-5 H Ur Epithelial Cells (NONE,FEW) RARE Urine Bacteria (NEG/NONE) RARE H Urine Hemoglobin (NEG) LARGE H Ur Random Creatinine (mg/dL) 173.2 Ur Random Sodium (30 - 90 mmol/L) 8 L Ur Random Potassium (mmol/L) 36.4 Fraction Sodium Excret (<1% %) 0.1 Urine Glucose (N MG/DL) NEG 08/02 1450 Chemistry Sodium (137 - 145 mmol/L) 141 Potassium (3.5 - 5.1 mmol/L) 3.9 Chloride (98 - 107 mmol/L) 99 Carbon Dioxide (22 - 30 mmol/L) 27 Anion Gap (5 - 16) 15 BUN (9 - 20 mg/dL) 55 H Creatinine (0.7 - 1.2 mg/dL) 1.8 H Estimated GFR (>60 ml/min) 37 L BUN/Creatinine Ratio (7 - 25 %) 30.6 H Glucose (65 - 99 mg/dL) 76 Hemoglobin A1c (4.2 - 5.8 %) 5.9 H Calcium (8.4 - 10.2 mg/dL) 9.9 Total Bilirubin (0.2 - 1.3 mg/dL) 3.1 H Direct Bilirubin (< 0.4 mg/dL) 1.1 H AST (17 - 59 U/L) 119 H ALT (21 - 72 U/L) 76 H Alkaline Phosphatase (< 127 U/L) 98 Creatine Kinase (55 - 170 U/L) 395 H Troponin I (<0.11 ng/ml) 1.71 *H Imp-E-Qfcpejvawoh Pept (<125 pg/mL) 4650 H Total Protein (6.3 - 8.2 g/dL) 6.1 L Albumin (3.5 - 5.0 g/dL) 3.0 L Globulin (1.9 - 4.2 gm/dL) 3.1 Albumin/Globulin Ratio (1.1 - 2.2 %) 1.0 L Free T4 (0.78 - 2.44 ng/dL) 1.94 Total T3 (0.97 - 1.69 ng/mL) 0.61 L TSH &T3 &Free T4 Intrp (0.27 - 4.20 uIU/mL) 1.260 Hematology CBC w Diff NO MAN DIFF REQ WBC (4.8 - 10.8 /CUMM) 10.7 RBC (4.70 - 6.10 /CUMM) 5.48 Hgb (14.0 - 18.0 G/DL) 17.5 Hct (42 - 52 %) 52.2 H MCV (80.0 - 94.0 FL) 95.3 H MCH (27.0 - 31.0 PG) 31.9 H MCHC (33.0 - 37.0 G/DL) 33.4 RDW (11.5 - 14.5 %) 16.3 H Plt Count (130 - 400 /CUMM) 151 MPV (7.4 - 10.4 FL) 8.7 Gran % (42.2 - 75.2 %) 88.5 H Lymphocytes % (20.5 - 51.1 %) 5.5 L Monocytes % (1.7 - 9.3 %) 6.0 Eosinophils % (0 - 5 %) 0 Basophils % (0.0 - 2.0 %) 0 Absolute Granulocytes (1.4 - 6.5 /CUMM) 9.5 H Absolute Lymphocytes (1.2 - 3.4 /CUMM) 0.6 L Absolute Monocytes (0.10 - 0.60 /CUMM) 0.6 Absolute Eosinophils (0.0 - 0.7 /CUMM) 0 Absolute Basophils (0.0 - 0.2 /CUMM) 0 Toxicology Serum Alcohol (<10 MG/DL) < 10.0 Imaging/Other Studies: CT Imaging, TTE, Renal US, Doppler US, and Chest X-ray reviewed Assessment/Plan Assessment/Recommendations Assessment: RICHI - Prior baseline in 2010. Presumably has remained at that level although not clear that it has. He comes in with AMS and A fib with RVR c/b drops in blood pressure. It's entirely feasible that his RICHI is ischemic ATN in the setting of renal hypoperfusion. That being said, his low urine sodium suggests a salt avid state - granted with his edema, he does not appear clinically hypovolemic. There is no evidence of obstruction on US although the asymmetry in kidney size did suggest renovascular disease. I cannot get any further history from him whether or not he was taking any nephrotoxins at home such as NSAID's. He does have some protein in his urine although not enough on the UA to suggest nephrotic range that would account for his low albumin and edema although this should be quantified. In the setting of RBC's in his urine, a GN such as infection related (lesions on his legs) may be considered but seems less likely. Edema - Presumably from CHF although cannot rule out nephrosis. No evidence of liver disease based on CT imaging or LE DVT's given neg US. Recommendations: -No clear need for fluid and/or diuresis at this time -Would send UProt, UCr, UMicroalbumin (evaluate for albumin and non-albumin protein in the urine) -C3, C4 (for infection related GN) -Hepatitis B, C and HIV testing -SPEP, UPEP, KLFLC Please call [phone] with ?'s
--- NOTE | 2017-08-03 13:00 | Cons- Infect Disease ---
General Information and HPI Consulting Request Date of Consult: 08/03/17 Requested By: Amelia KOEHLER,Kurt Robles Reason for Consult: abx advice Source of Information: patient, primary team Exam Limitations: clinical condition History of Present Illness: 72 yo male known with CHF, HTN, prvious syncopal episode admitted to the hospital on 08/02 with MSC and SOB. He was found on the floor of his apartament by the landlord who called the ambulance. Last time his son spoke with him was on Jul 31, 2017. At that time pt complained of "having the flu" and feeling "under the weather". Son thought that he sounded slurred. In the ED patient able to answer questions; denied fever or chills; c/o cough. He reported recent falls. His mental status seems to have worsened and he was unable to give any history later on. Currently afebrile, arousable, slow to answer questions, breathing using abd wall muscles. Allergies/Medications Allergies: Coded Allergies: No Known Allergies (08/02/17) Home Med List: Aspirin (Adult Low Dose Aspirin EC) 81 MG TABLET.DR 1 TAB PO DAILY HEART/BLOOD (Reported) Carvedilol 25 MG TABLET 1 TAB PO BID HEART/BP (Reported) Lisinopril 20 MG TABLET 1 TAB PO DAILY BP (Reported) Current Medications: Current Medications Sig/Richard Start time Last Medication Dose Route Stop Time Status Admin Aspirin 300 MG 0300 08/04 0300 AC AK Aspirin 325 MG DAILY 08/02 2345 CAN PO Aspirin 300 MG DAILY 08/02 2345 DC 08/03 [place] 0324 Azithromycin 500 MG ONCE ONE 08/02 2300 DC 08/02 Dextrose/Water 250 ML IV 08/02 2359 2334 Ceftazidime 1,000 MG ONCE ONE 08/02 1930 CAN IV 08/02 1931 Ceftriaxone Sodium 2,000 MG ONCE ONE 08/02 2300 DC 08/02 IV 08/02 2301 2335 Diltiazem HCl 10 MG ONCE ONE 08/02 1530 CAN IV 08/02 1531 Diltiazem HCl 10 MG ONCE ONE 08/02 1500 DC 08/02 IV 08/02 1501 1506 Diltiazem HCl 0 .STK-MED ONE 08/02 1436 DC IV Diltiazem HCl 10 MG ONCE ONE 08/02 1430 DC 08/02 IV 08/02 1431 1430 Diltiazem HCl 125 MG Q24H 08/02 1430 AC 03 Sodium Chloride 100 ML IV 1446 Diltiazem HCl 0 .STK-MED ONE 08/02 1426 DC .ROUTE Furosemide 20 MG ONCE ONE 08/02 2315 DC 08/02 IV 08/02 2316 2336 Furosemide 40 MG ONCE ONE 08/02 2100 CAN IV 08/02 2101 Heparin Sodium 0 .STK-MED ONE 08/02 1613 DC (Porcine) .ROUTE Heparin Sodium 5,000 UNIT ONCE ONE 08/02 1545 DC 08/02 (Porcine) IV 08/02 1546 1636 Heparin Sodium 25,000 UNIT Q24H 08/02 1545 AC 08/02 (Porcine) IV 1636 Sodium Chloride 500 ML Lorazepam 1 MG Q1 PRN 08/02 2330 DC IV Lorazepam 0 .STK-MED ONE 08/02 2020 DC .ROUTE Lorazepam 0.5 MG ONCE ONE 08/03 1999 DC 08/02 IV 08/02 Lorazepam 0.5 MG ONCE PRN 08/03 1999 DC IV 08/02 2359 Lorazepam 0.5 MG ONCE ONE 08/02 1845 DC 08/02 IV 08/02 1846 1844 Lorazepam 0 .STK-MED ONE 08/02 1832 DC .ROUTE Lorazepam 0.5 MG ONCE ONE 08/02 1830 DC 08/02 IV 08/02 1831 1835 Metoprolol Tartrate 0 .STK-MED ONE 08/02 1720 DC IV Metoprolol Tartrate 5 MG ONCE ONE 08/02 1715 DC 08/02 IV 08/02 1716 1720 Metoprolol Tartrate 0 .STK-MED ONE 08/02 1537 DC IV Metoprolol Tartrate 5 MG ONCE ONE 08/02 1530 DC 03 IV 08/02 1531 1548 Naloxone HCl 0.4 MG Q1 08/03 1000 DC 08/03 IV 08/03 1101 0950 Naloxone HCl 0.4 MG ONCE ONE 08/03 0945 CAN SC 08/03 0946 Nystatin 1 CYN BID PRN 08/03 0645 AC TOP Pantoprazole Sodium 40 MG DAILY 08/03 1000 AC /02 IV 0926 Sodium Chloride 1,000 ML ONCE ONE 08/02 1430 DC 03 IV 08/02 2109 1430 Thiamine HCl 100 MG Q8H 08/02 2330 AC 08/03 Sodium Chloride 50 ML IV 0823 Vancomycin HCl 1,500 MG ONCE ONE 08/02 2029 DC 08/02 Dextrose/Water 250 ML IV 08/02 5149 2334 Past History Travel History Traveled to [place] past 21 day No Medical History Blood Transfusion Hx: No EENT: NONE Cardiovascular: hypertension, myocardial infarction, syncope Respiratory: NONE Gastrointestinal: NONE Hepatic: NONE Renal: NONE Musculoskeletal: NONE Psychiatric: NONE Endocrine: NONE Blood Disorders: NONE Cancer(s): NONE DISPATCH COORDINATOR/Reproductive: NONE History of MRSA: No History of VRE: No History of CDIFF: No Isolation History: Standard Pneumonia Vaccine: 09/03/10 Influenza Vaccine: 02/15/17 Surgical History Surgical History: non-contributory Psychosocial History Where Do You Live? Home Services at Home: None Smoking Status: Never Smoked ETOH Use: occasional use Illicit Drug Use: denies illicit drug use Review of Systems Comments Limited 12 points ROS Exam & Diagnostic Data Last 24 Hrs of Vital Signs/I&O Vital Signs Date Time Temp Pulse Resp B/P B/P Pulse O2 O2 Flow FiO2 Mean Ox Delivery Rate 08/03 1000 86 26 158/66 03/02 0800 96.6 78 24 120/80 03/ 0800 94 Nasal 4.0L Cannula 08/03 0800 96.6 78 24 120/80 94 Nasal 4.0L Cannula 08/03 0600 80 30 112/72 03/ 0356 94 Nasal 4.0L Cannula 08/03 0200 88 26 129/63 03/02 0000 96.9 93 25 135/64 03/02 0000 95 Nasal 4.0L Cannula 08/02 2300 96.9 82 28 132/65 96 Nasal 4.0L Cannula 08/02 2200 97.7 82 23 150/75 03/ 2200 97.7 83 23 150/75 / 2130 94 Nasal 4.0L Cannula 08/02 2034 96.8 81 20 110/60 936 Nasal 4.0L Cannula 08/02 1904 89 118/66 03/01 1849 166 18 86/60 03/01 1726 158 22 92/70 100 Nasal 4.0L Cannula 08/02 1720 172 92/60 08/02 1715 175 22 92/60 95 Nasal 4.0L Cannula 08/02 1548 176 100/60 08/02 1528 Nasal 4.0L Cannula 08/02 1519 97.0 176 24 100/60 93 Nasal 3.0L Cannula 08/02 1506 180 20 110/78 08/02 1430 199 119/59 08/02 1419 97.4 185 20 119/59 89 Room Air Intake & Output 08/03 1600 08/03 0800 08/03 0000 Intake Total 1850 1140 Output Total 100 430 Balance 1750 710 Intake, IV 1850 1140 Intake, Oral 0 0 Number 0 0 Bowel Movements Output, Urine 100 430 Patient 233 lb 246 lb Weight Weight Bed scale Bed scale Measurement Method Physical Exam Other Physical Findings: General Appearance acutely ill, labored breathing Skin Chronic stasis skin changes in bilat LE. L >R LE erythema HEENT Atraumatic, sclera anicteric Cardiovascular S1 S2 present, no gallop Lungs BS diminished bases,b/l rhonchi Abdomen obese, soft Neurological lethargic, arousable, slow to answer questions, no nuchal rigidity Extremities 4+ edema above knees. Last 24 Hours of Lab Results: Laboratory Tests 08/03 08/03 08/03 08/03 1130 0950 0838 0525 Chemistry Lactic Acid (0.7 - 2.1 mmol/L) 2.1 2.2 H 2.3 H Toxicology Urine Opiates Screen (>2000 NG/ML) < 100 Methadone Screen (>300 NG/ML) < 40 Barbiturate Screen (>200 NG/ML) < 60 Ur Phencyclidine Scrn (>25 NG/ML) < 6.00 Amphetamines Screen (>1000 NG/ML) < 100 U Benzodiazepines Scrn (>200 NG/ML) < 85 Urine Cocaine Screen (>300 NG/ML) < 50 Urine Cannabis Screen (>50 NG/ML) < 5.00 08/03 08/03 08/02 0525 0150 2222 Chemistry Sodium (137 - 145 mmol/L) 141 Potassium (3.5 - 5.1 mmol/L) 4.1 Chloride (98 - 107 mmol/L) 103 Carbon Dioxide (22 - 30 mmol/L) 28 Anion Gap (5 - 16) 10 BUN (9 - 20 mg/dL) 62 H Creatinine (0.7 - 1.2 mg/dL) 2.3 H Estimated GFR (>60 ml/min) 28 L Glucose (65 - 99 mg/dL) 104 H Lactic Acid (0.7 - 2.1 mmol/L) 2.5 H 3.2 H Calcium (8.4 - 10.2 mg/dL) 9.2 Phosphorus (2.5 - 4.5 mg/dL) 5.7 H Magnesium (1.6 - 2.3 mg/dL) 2.0 Total Bilirubin (0.2 - 1.3 mg/dL) 2.1 H AST (17 - 59 U/L) 95 H ALT (21 - 72 U/L) 70 Troponin I (<0.11 ng/ml) 1.74 *H 1.98 *H Albumin (3.5 - 5.0 g/dL) 2.3 L Coagulation PT (9.4 - 12.5 SEC) 22.2 H INR (0.90 - 1.17) 2.13 H APTT (25 - 37 SEC) 68 H > 120 *H Hematology CBC w Diff MAN DIFF ORDERED WBC (4.8 - 10.8 /CUMM) 12.1 H RBC (4.70 - 6.10 /CUMM) 4.87 Hgb (14.0 - 18.0 G/DL) 15.6 Hct (42 - 52 %) 47.1 MCV (80.0 - 94.0 FL) 96.7 H MCH (27.0 - 31.0 PG) 31.9 H MCHC (33.0 - 37.0 G/DL) 33.0 RDW (11.5 - 14.5 %) 16.8 H Plt Count (130 - 400 /CUMM) 137 MPV (7.4 - 10.4 FL) 8.0 Gran % (42.2 - 75.2 %) 87.7 H Lymphocytes % (20.5 - 51.1 %) 6.2 L Monocytes % (1.7 - 9.3 %) 6.0 Eosinophils % (0 - 5 %) 0 Basophils % (0.0 - 2.0 %) 0.1 Absolute Granulocytes (1.4 - 6.5 /CUMM) 10.6 H Segmented Neutrophils (42.2 - 75.2 %) 95 H Absolute Lymphocytes (1.2 - 3.4 /CUMM) 0.7 L Lymphocytes (20.5 - 51.1 %) 3 L Monocytes (1.7 - 9.3 %) 2 Absolute Monocytes (0.10 - 0.60 /CUMM) 0.7 H Absolute Eosinophils (0.0 - 0.7 /CUMM) 0 Absolute Basophils (0.0 - 0.2 /CUMM) 0 Platelet Estimate (ADEQUATE) ADEQUATE Polychromasia 1+ Poikilocytosis 1+ Ovalocytes 1+ [place] Cells FEW Other Body Source [place]ld Total RBCs Counted (%) 100 08/02 08/02 1836 1810 Blood Gas pH (7.35 - 7.45 PH) 7.41 pCO2 (35 - 45 TORR) 33 L pO2 (80 - 100 TORR) 92 HCO3 (21 - 28 MEQ/L) 21 ABG O2 Sat (Measured) (>96.0 %) 96.0 P-50 (Temp Corrected) N Carboxyhemoglobin (1.5 - 5.0 %) 0.2 L O2 Concentration % 4L Temperature (97.0 - 100.0 FARH) 97.0 O2 Delivery Method NC Chemistry Lactic Acid (0.7 - 2.1 mmol/L) 4.3 H Miscellaneous Phlebotomy Draw Site RIGHT RADIAL 08/02 08/02 08/02 1635 1635 1517 Chemistry Lactic Acid (0.7 - 2.1 mmol/L) 3.3 H Coagulation PT (9.4 - 12.5 SEC) 21.7 H INR (0.90 - 1.17) 2.08 H APTT (25 - 37 SEC) 32 D-Dimer High Sensitivty (0 - 243 ng/ml) 3108 H Toxicology Urine Opiates Screen (>2000 NG/ML) < 100 Methadone Screen (>300 NG/ML) < 40 Barbiturate Screen (>200 NG/ML) < 60 Ur Phencyclidine Scrn (>25 NG/ML) < 6.00 Amphetamines Screen (>1000 NG/ML) < 100 U Benzodiazepines Scrn (>200 NG/ML) < 85 Urine Cocaine Screen (>300 NG/ML) < 50 Urine Cannabis Screen (>50 NG/ML) < 5.00 Urines Urine Color (YEL,AMB,STR) YEL Urine Clarity (CLEAR) HAZY H Urine pH (5.0 - 8.0) 6.0 Ur Specific [place] (1.001 - 1.035) 1.025 Urine Protein (NEG,<30 MG/DL) 100 H Urine Ketones (NEG) TRACE H Urine Nitrite (NEG) NEG Urine Bilirubin (NEG) NEG@ICTO Urine Urobilinogen (0.1 - 1.0 EU/dl) 2.0 H Ur Leukocyte Esterase (NEG) NEG Ur Microscopic SEDIMENT EXAMINED Urine RBC (0 - 5 /HPF) 10-15 H Urine WBC (0 - 2 /HPF) 3-5 H Ur Epithelial Cells (NONE,FEW) RARE Urine Bacteria (NEG/NONE) RARE H Urine Hemoglobin (NEG) LARGE H Ur Random Creatinine (mg/dL) 173.2 Ur Random Sodium (30 - 90 mmol/L) 8 L Ur Random Potassium (mmol/L) 36.4 Fraction Sodium Excret (<1% %) 0.1 Urine Glucose (N MG/DL) NEG 08/02 1450 Chemistry Sodium (137 - 145 mmol/L) 141 Potassium (3.5 - 5.1 mmol/L) 3.9 Chloride (98 - 107 mmol/L) 99 Carbon Dioxide (22 - 30 mmol/L) 27 Anion Gap (5 - 16) 15 BUN (9 - 20 mg/dL) 55 H Creatinine (0.7 - 1.2 mg/dL) 1.8 H Estimated GFR (>60 ml/min) 37 L BUN/Creatinine Ratio (7 - 25 %) 30.6 H Glucose (65 - 99 mg/dL) 76 Hemoglobin A1c (4.2 - 5.8 %) 5.9 H Calcium (8.4 - 10.2 mg/dL) 9.9 Total Bilirubin (0.2 - 1.3 mg/dL) 3.1 H Direct Bilirubin (< 0.4 mg/dL) 1.1 H AST (17 - 59 U/L) 119 H ALT (21 - 72 U/L) 76 H Alkaline Phosphatase (< 127 U/L) 98 Creatine Kinase (55 - 170 U/L) 395 H Troponin I (<0.11 ng/ml) 1.71 *H Rpd-E-Icaycaqlebo Pept (<125 pg/mL) 4650 H Total Protein (6.3 - 8.2 g/dL) 6.1 L Albumin (3.5 - 5.0 g/dL) 3.0 L Globulin (1.9 - 4.2 gm/dL) 3.1 Albumin/Globulin Ratio (1.1 - 2.2 %) 1.0 L Free T4 (0.78 - 2.44 ng/dL) 1.94 Total T3 (0.97 - 1.69 ng/mL) 0.61 L TSH &T3 &Free T4 Intrp (0.27 - 4.20 uIU/mL) 1.260 Hematology CBC w Diff NO MAN DIFF REQ WBC (4.8 - 10.8 /CUMM) 10.7 RBC (4.70 - 6.10 /CUMM) 5.48 Hgb (14.0 - 18.0 G/DL) 17.5 Hct (42 - 52 %) 52.2 H MCV (80.0 - 94.0 FL) 95.3 H MCH (27.0 - 31.0 PG) 31.9 H MCHC (33.0 - 37.0 G/DL) 33.4 RDW (11.5 - 14.5 %) 16.3 H Plt Count (130 - 400 /CUMM) 151 MPV (7.4 - 10.4 FL) 8.7 Gran % (42.2 - 75.2 %) 88.5 H Lymphocytes % (20.5 - 51.1 %) 5.5 L Monocytes % (1.7 - 9.3 %) 6.0 Eosinophils % (0 - 5 %) 0 Basophils % (0.0 - 2.0 %) 0 Absolute Granulocytes (1.4 - 6.5 /CUMM) 9.5 H Absolute Lymphocytes (1.2 - 3.4 /CUMM) 0.6 L Absolute Monocytes (0.10 - 0.60 /CUMM) 0.6 Absolute Eosinophils (0.0 - 0.7 /CUMM) 0 Absolute Basophils (0.0 - 0.2 /CUMM) 0 Toxicology Serum Alcohol (<10 MG/DL) < 10.0 Last 24 Hours of [place] Results: SPEC #: [id number] SWETA: 08/02/17 STATUS: RES RECD: 08/02/[address] [facility] [address]: Peter KOEHLER, Marleny SOURCE: BLOOD ENTR: 08/02/17 [facility] [address]: Amelia KOEHLER,Kurt Margaret SPDESC: 1ST/VENOUS Patient Has No Primary Care Dr ORDERED: BLOOD CULTURE Procedure Result > BLOOD CULTURE REPORT Preliminary 08/03/17120 No growth after 1 day incubation. Specimen is examined continuously for 5 days before final report unless culture becomes positive. Diagnostic Data Recent Imaging Findings: 2D Echo CONCLUSIONS 1. Low normal EF of 50% with inferoapical and apical hypokinesis. 2. Large apical thrombus. 3. Moderate left ventricular hypertrophy. 4. Moderate left atrial enlargement. 5. Mild mitral regurgitation. 6. Mild tricuspid regurgitation. 7. Mild pulmonary hypertension. 8. Small pericardial effusion. Jamal Hitchcock M.D. (Electronically Signed) Final Date: 02 August 2017 21:06 CXR 08/02 IMPRESSION: 1. Cardiomegaly and central vascular congestion. 2. Bibasilar opacities, suspicious for atelectasis or pneumonia. DICTATED BY: Aliyah Mcarthur MD DATE/TIME DICTATED:08/02/171503 DOCK LOADER:CAREY DATE/TIME TRANSCRIBED:08/02/171503 CT chest IMPRESSION: Several punctate nonobstructive right renal calculi. No hydronephrosis. Moderate bilateral pleural effusions with associated bibasilar airspace disease. Infection cannot be excluded. Cardiomegaly and small pericardial effusion. Sigmoid diverticulosis without evidence of diverticulitis. DICTATED BY: Jose Grubbs MD DATE/TIME DICTATED:08/02/172127 DOCK LOADER:CAREY DATE/TIME TRANSCRIBED:08/02/172127 IMPRESSION: Neither hydronephrosis nor nephrolithiasis. Bilateral renal cortical thinning. DICTATED BY: Jose Grubbs MD DATE/TIME DICTATED:08/02/171999 DOCK LOADER:DHARMESH DATE/TIME TRANSCRIBED:08/02/171999 Assessment/Plan Assessment/Plan Impression: 72 yo male known with CHF, HTN, prvious syncopal episode admitted to the hospital on 08/02 with MSC and SOB. Recent worsening overall mental status status post fall; has decreased mentation due to delirium and Ativan, and rule out stroke (LV clot and PAF) Eval encephalitis/stroke. Elev INR LP not feasible. Hypoxemic respiratory failure; aspiration pneumonia RICHI Mild Leukocytosis L LE cellulitis Suggestion: 1. Trend CBC, BMP, lactic acid. Pulm toilet ? suction for sputum cx. Obtain ESR, LIYAH, vit B12 level, TSH. Pneumococcal and legionela ur ag. Cont empiric iv CTX/doxy (or azithro). 2. MRI of the brain eval stroke, EPIC RADIANT ANALYST infection appears less likely. 3. If febrile broad abx coverage (vancomycin/CTX/ampicillin/acyclovir); and once feasible LP to r/o infection (CSF analysis cell count, glucose, protein, HSV and VZV DNA PCR in CSF, bacterial, fungal and mycobactereial culture; save one tube for further testing). 4. F/U pulm recom. Consult Acknowledgment - Thank you for your consult request.
--- NOTE | 2017-08-03 15:25 | Cons- Neurology ---
General Information and HPI Consulting Request Date of Consult: 08/03/17 Requested By: Amelia KOEHLER,Kurt Robles Reason for Consult: AMS Source of Information: staff Exam Limitations: unable to give history History of Present Illness: 72-year-old man with a past medical history most significant for what appears to be a baseline creatinine of 1.1, and CHF, hypertension, presented with altered mental status. Patient is completely obtunded today, however, the patient was reportedly found in his apartment after his landlord was unable to get in touch with him. On Presentation, initial blood pressure 119/59 - afebrile. He was found to be in A. fib with RVR with a heart rate up to 199 requiring pushes of Lopressor and a Cardizem drip. This was complicated by hypotension. he ultimately required cardioversion. Mental status noted to deteriorate on the ED. He was subsequently admitted to the ICU. Of important note he was found to have cellulitic and severely edematous legs. Initial labs notable for white count 10.7, hemoglobin 17.5, platelets 151, creatinine 2.3, bicarbonate 28 lactate 2.3, phosphorus 5.7, elevated AST 95, troponin 1.74, albumin 3.0. Urinalysis with 100 protein/10 to 15 red blood cell /3-5 white blood cell. urine tox screen negative. Imaging includes chest x-ray with cardiomegaly and central vascular congestion with bibasilar opacities suspicious for pneumonia. CT imaging performed notable for moderate bilateral pleural effusions. Renal ultrasound noted for right kidney 12.3 cm left kidney 8.2 cm without evidence of hydronephrosis but did note bilateral renal cortical thinning. Echocardiogram with EF of 50% with a large apical thrombus and moderate LVH. Dopplers of the legs negative for DVT. The patient has evidence of previous MIs, liver disease and kidney dysfunction. Per history he had also taken Nyquil the night before and later was given ativan. Allergies/Medications Allergies: Coded Allergies: No Known Allergies (08/02/17) Home Med List: Aspirin (Adult Low Dose Aspirin EC) 81 MG TABLET.DR 1 TAB PO DAILY HEART/BLOOD (Reported) Carvedilol 25 MG TABLET 1 TAB PO BID HEART/BP (Reported) Lisinopril 20 MG TABLET 1 TAB PO DAILY BP (Reported) Current Medications: Current Medications Sig/Richard Start time Last Medication Dose Route Stop Time Status Admin Aspirin 300 MG 0300 08/04 0300 AC MO Aspirin 325 MG DAILY 08/02 2345 CAN PO Aspirin 300 MG DAILY 08/02 2345 DC 08/03 MO 0324 Azithromycin 500 MG ONCE ONE 08/02 2300 DC 08/02 Dextrose/Water 250 ML IV 08/02 2359 2334 Ceftazidime 1,000 MG ONCE ONE 08/02 1930 CAN IV 08/02 1931 Ceftriaxone Sodium 2,000 MG ONCE ONE 08/02 2300 DC 08/02 IV 08/02 2301 2335 Cyanocobalamin/ 1 BAG DAILY 08/03 1415 AC Thiamine/Pyridoxine IV Dextrose/Water 1,000 ML Diltiazem HCl 10 MG ONCE ONE 08/02 1530 CAN IV 08/02 1531 Diltiazem HCl 125 MG Q24H 08/02 1430 AC 08/02 Sodium Chloride 100 ML IV 1446 Furosemide 20 MG ONCE ONE 08/02 2315 DC 08/02 IV 08/02 2316 2336 Furosemide 40 MG ONCE ONE 08/02 2100 CAN IV 08/02 2101 Heparin Sodium 0 .STK-MED ONE 08/02 1613 DC (Porcine) .ROUTE Heparin Sodium 5,000 UNIT ONCE ONE 08/02 1545 DC 08/02 (Porcine) IV 08/02 1546 1636 Heparin Sodium 25,000 UNIT Q24H 08/02 1545 AC 08/02 (Porcine) IV 1636 Sodium Chloride 500 ML Lorazepam 1 MG Q1 PRN 08/02 2330 DC IV Lorazepam 0 .STK-MED ONE 08/02 2020 DC .ROUTE Lorazepam 0.5 MG ONCE ONE 08/03 1999 DC 08/02 IV 08/02 Lorazepam 0.5 MG ONCE PRN 08/03 1999 DC IV 08/02 2359 Lorazepam 0.5 MG ONCE ONE 08/02 1845 DC 08/02 IV 08/02 1846 1844 Lorazepam 0 .STK-MED ONE 08/02 1832 DC .ROUTE Lorazepam 0.5 MG ONCE ONE 08/02 1830 DC 08/02 IV 08/02 1831 1835 Metoprolol Tartrate 0 .STK-MED ONE 08/02 1720 DC IV Metoprolol Tartrate 5 MG ONCE ONE 08/02 1715 DC 08/02 IV 08/02 1716 1720 Metoprolol Tartrate 0 .STK-MED ONE 08/02 1537 DC IV Metoprolol Tartrate 5 MG ONCE ONE 08/02 1530 DC 08/02 IV 08/02 1531 1548 Naloxone HCl 0.4 MG Q1 08/03 1000 DC / IV 08/03 1101 0950 Naloxone HCl 0.4 MG ONCE ONE 08/03 0945 CAN SC 08/03 0946 Nystatin 1 CYN BID PRN 08/03 0645 AC TOP Pantoprazole Sodium 40 MG DAILY 08/03 1000 AC 08/03 IV 0926 Phytonadione 10 MG ONCE ONE 08/03 1415 DC SC 08/03 1416 Sodium Chloride 1,000 ML ONCE ONE 08/02 1430 DC 08/02 IV 08/02 2109 1430 Thiamine HCl 100 MG Q8H 08/02 2330 AC 08/03 Sodium Chloride 50 ML IV 0823 Vancomycin HCl 1,500 MG ONCE ONE 08/02 2030 DC 08/02 Dextrose/Water 250 ML IV 08/02 2159 2334 Review of Systems Review of Systems: As per HPI. Past History Travel History Traveled to [place] past 21 day No Medical History Blood Transfusion Hx: No EENT: NONE Cardiovascular: AFIB, hypertension, myocardial infarction, syncope Respiratory: NONE Gastrointestinal: NONE Hepatic: NONE Renal: NONE Musculoskeletal: NONE Psychiatric: NONE Endocrine: NONE Blood Disorders: NONE Cancer(s): NONE HPLC CHEMIST/Reproductive: NONE Surgical History Surgical History: non-contributory Psychosocial History Where Do You Live? Home Services at Home: None Smoking Status: Never Smoked ETOH Use: occasional use Illicit Drug Use: denies illicit drug use Exam & Diagnostic Data Vital Signs and I&O Vital Signs Date Time Temp Pulse Resp B/P B/P Pulse O2 O2 Flow FiO2 Mean Ox Delivery Rate 08/03 1313 Nasal 4.0L Cannula 08/03 1312 94 Nasal 4.0L Cannula 08/03 1000 86 26 158/66 08/03 0800 96.6 78 24 120/80 08/03 0800 94 Nasal 4.0L Cannula 08/03 0800 96.6 78 24 120/80 94 Nasal 4.0L Cannula 08/03 0600 80 30 112/72 08/03 0356 94 Nasal 4.0L Cannula 08/03 0200 88 26 129/63 / 0000 96.9 93 25 135/64 08/03 0000 95 Nasal 4.0L Cannula 08/02 2300 96.9 82 28 132/65 96 Nasal 4.0L Cannula 08/02 2199 97.7 82 23 150/75 08/02 2200 97.7 83 23 150/75 08/02 2130 94 Nasal 4.0L Cannula 08/02 2034 96.8 81 20 110/60 936 Nasal 4.0L Cannula 08/02 1904 89 118/66 08/02 1849 166 18 86/60 08/02 1726 158 22 92/70 100 Nasal 4.0L Cannula 08/02 1720 172 92/60 08/02 1715 175 22 92/60 95 Nasal 4.0L Cannula 08/02 1548 176 100/60 08/02 1528 Nasal 4.0L Cannula 08/02 1519 97.0 176 24 100/60 93 Nasal 3.0L Cannula Intake & Output 08/03 1600 08/03 0800 08/03 0000 Intake Total 1850 1140 Output Total 100 430 Balance 1750 710 Intake, IV 1850 1140 Intake, Oral 0 0 Number 0 0 Bowel Movements Output, Urine 100 430 Patient 233 lb 246 lb Weight Weight Bed scale Bed scale Measurement Method Physical Exam: Obtunded, breathing heavily,protecting his own airway. Corneal reflexes are brisk bilaterally. Pupils are small, sluggish, and at times dilate when patient's head and body is moved. Tone is within normal range. EOMI, IGLESIA, tongue midline. Doll's eye normal. Responds equally to tactile stimuli in feet, withdraws, toes down bilaterally. At times moves spontaneously. Both legs are erythematoud, shiny, in poor hygeine, with scabs and one toe is dark on the right. The patient seems in pain when touching his feet. Brudzinzki's sign is negative. Last 48 Hours of Lab Results: Laboratory Tests 08/03 08/03 08/03 08/03 08/03 1130 0950 0950 0838 0525 Chemistry Lactic Acid (0.7 - 2.1 mmol/L) 2.1 2.2 H 2.3 H Toxicology Urine Opiates Screen (>2000 NG/ML) < 100 Methadone Screen (>300 NG/ML) < 40 Barbiturate Screen (>200 NG/ML) < 60 Ur Phencyclidine Scrn (>25 NG/ML) < 6.00 Amphetamines Screen (>1000 NG/ML) < 100 U Benzodiazepines Scrn (>200 NG/ML) < 85 Urine Cocaine Screen (>300 NG/ML) < 50 Urine Cannabis Screen (>50 NG/ML) < 5.00 Urines Ur Random Creatinine (mg/dL) 120.0 Ur Random Microalbumin (<1.7 mg/dl) 28.3 H U Random Total Protein (0 - 12 mg/dL) 67 H Ur Creatinine 24 Hour Pending Ur Total Protein 24 Hr Pending Protein/Creatinin Ratio (< 0.2) 0.5 H Protein/Creat Ratio 24h Pending U Cystine/Creat Ratio (mcg/mg) 235.83 U Protein Electrophores Pending Urine Albumin (%) Pending U [id number] Pending U [id number] Pending U Beta Globulin Pending U Gamma Globulin Pending U Abnormal Prot Band 1 Pending U Abnormal Prot Band 2 Pending U Abnormal Prot Band 3 Pending 08/03 08/03 08/03 0525 0500 0150 Chemistry Sodium (137 - 145 mmol/L) 141 Potassium (3.5 - 5.1 mmol/L) 4.1 Chloride (98 - 107 mmol/L) 103 Carbon Dioxide (22 - 30 mmol/L) 28 Anion Gap (5 - 16) 10 BUN (9 - 20 mg/dL) 62 H Creatinine (0.7 - 1.2 mg/dL) 2.3 H Estimated GFR (>60 ml/min) 28 L Glucose (65 - 99 mg/dL) 104 H Lactic Acid (0.7 - 2.1 mmol/L) 2.5 H Calcium (8.4 - 10.2 mg/dL) 9.2 Phosphorus (2.5 - 4.5 mg/dL) 5.7 H Magnesium (1.6 - 2.3 mg/dL) 2.0 Total Bilirubin (0.2 - 1.3 mg/dL) 2.1 H AST (17 - 59 U/L) 95 H ALT (21 - 72 U/L) 70 Troponin I (<0.11 ng/ml) 1.74 *H Prot Electrophoresis Pending Total Protein (PEP) Pending Albumin (3.5 - 5.0 g/dL) 2.3 L Albumin % (PEP) Pending [id number] Pending [id number] Pending [id number] Pending [id number] Pending Gamma Globulins Pending Abnorm Protein Band 1 Pending Abnorm Protein Band 2 Pending Abnorm Protein Band 3 Pending Coagulation PT (9.4 - 12.5 SEC) 22.2 H INR (0.90 - 1.17) 2.13 H APTT (25 - 37 SEC) 68 H Hematology CBC w Diff MAN DIFF ORDERED WBC (4.8 - 10.8 /CUMM) 12.1 H RBC (4.70 - 6.10 /CUMM) 4.87 Hgb (14.0 - 18.0 G/DL) 15.6 Hct (42 - 52 %) 47.1 MCV (80.0 - 94.0 FL) 96.7 H MCH (27.0 - 31.0 PG) 31.9 H MCHC (33.0 - 37.0 G/DL) 33.0 RDW (11.5 - 14.5 %) 16.8 H Plt Count (130 - 400 /CUMM) 137 MPV (7.4 - 10.4 FL) 8.0 Gran % (42.2 - 75.2 %) 87.7 H Lymphocytes % (20.5 - 51.1 %) 6.2 L Monocytes % (1.7 - 9.3 %) 6.0 Eosinophils % (0 - 5 %) 0 Basophils % (0.0 - 2.0 %) 0.1 Absolute Granulocytes (1.4 - 6.5 /CUMM) 10.6 H Segmented Neutrophils (42.2 - 75.2 %) 95 H Absolute Lymphocytes (1.2 - 3.4 /CUMM) 0.7 L Lymphocytes (20.5 - 51.1 %) 3 L Monocytes (1.7 - 9.3 %) 2 Absolute Monocytes (0.10 - 0.60 /CUMM) 0.7 H Absolute Eosinophils (0.0 - 0.7 /CUMM) 0 Absolute Basophils (0.0 - 0.2 /CUMM) 0 Platelet Estimate (ADEQUATE) ADEQUATE Polychromasia 1+ Poikilocytosis 1+ Ovalocytes 1+ Dawit Cells FEW Immunology Complement C3 Pending Complement C4 Pending Other Body Source Fld Total RBCs Counted (%) 100 Serology Hepatitis A IgM Ab (NONREACTIVE) Pending Hep Bs Antigen (NONREACTIVE) Pending Hep B Core IgM Ab Conf (NONREACTIVE) Pending Hepatitis C Antibody (NONREACTIVE) Pending HIV 1&2 Ab Western Blot (NONREACTIVE) Pending Toxicology Random Vancomycin (ug/ml) Pending Salicylates (0 - 20.0 mg/dL) < 1.0 Acetaminophen (10.0 - 30.0 ug/mL) < 10.0 L 08/02 08/02 08/02 2222 1836 1810 Blood Gas pH (7.35 - 7.45 PH) 7.41 pCO2 (35 - 45 TORR) 33 L pO2 (80 - 100 TORR) 92 HCO3 (21 - 28 MEQ/L) 21 ABG O2 Sat (Measured) (>96.0 %) 96.0 P-50 (Temp Corrected) N Carboxyhemoglobin (1.5 - 5.0 %) 0.2 L O2 Concentration % 4L Temperature (97.0 - 100.0 FARH) 97.0 O2 Delivery Method NC Chemistry Lactic Acid (0.7 - 2.1 mmol/L) 3.2 H 4.3 H Troponin I (<0.11 ng/ml) 1.98 *H Coagulation APTT (25 - 37 SEC) > 120 *H Miscellaneous Phlebotomy Draw Site RIGHT RADIAL 08/02 08/02 08/02 1635 1635 1517 Chemistry Lactic Acid (0.7 - 2.1 mmol/L) 3.3 H Coagulation PT (9.4 - 12.5 SEC) 21.7 H INR (0.90 - 1.17) 2.08 H APTT (25 - 37 SEC) 32 D-Dimer High Sensitivty (0 - 243 ng/ml) 3108 H Toxicology Urine Opiates Screen (>2000 NG/ML) < 100 Methadone Screen (>300 NG/ML) < 40 Barbiturate Screen (>200 NG/ML) < 60 Ur Phencyclidine Scrn (>25 NG/ML) < 6.00 Amphetamines Screen (>1000 NG/ML) < 100 U Benzodiazepines Scrn (>200 NG/ML) < 85 Urine Cocaine Screen (>300 NG/ML) < 50 Urine Cannabis Screen (>50 NG/ML) < 5.00 Urines Urine Color (YEL,AMB,STR) YEL Urine Clarity (CLEAR) HAZY H Urine pH (5.0 - 8.0) 6.0 Ur Specific Gate (1.001 - 1.035) 1.025 Urine Protein (NEG,<30 MG/DL) 100 H Urine Ketones (NEG) TRACE H Urine Nitrite (NEG) NEG Urine Bilirubin (NEG) NEG@ICTO Urine Urobilinogen (0.1 - 1.0 EU/dl) 2.0 H Ur Leukocyte Esterase (NEG) NEG Ur Microscopic SEDIMENT EXAMINED Urine RBC (0 - 5 /HPF) 10-15 H Urine WBC (0 - 2 /HPF) 3-5 H Ur Epithelial Cells (NONE,FEW) RARE Urine Bacteria (NEG/NONE) RARE H Urine Hemoglobin (NEG) LARGE H Ur Random Creatinine (mg/dL) 173.2 Ur Random Sodium (30 - 90 mmol/L) 8 L Ur Random Potassium (mmol/L) 36.4 Fraction Sodium Excret (<1% %) 0.1 Urine Glucose (N MG/DL) NEG 08/02 08/02 1450 1423 Chemistry Sodium (137 - 145 mmol/L) 141 Potassium (3.5 - 5.1 mmol/L) 3.9 Chloride (98 - 107 mmol/L) 99 Carbon Dioxide (22 - 30 mmol/L) 27 Anion Gap (5 - 16) 15 BUN (9 - 20 mg/dL) 55 H Creatinine (0.7 - 1.2 mg/dL) 1.8 H Estimated GFR (>60 ml/min) 37 L BUN/Creatinine Ratio (7 - 25 %) 30.6 H Glucose (65 - 99 mg/dL) 76 Hemoglobin A1c (4.2 - 5.8 %) 5.9 H Calcium (8.4 - 10.2 mg/dL) 9.9 Total Bilirubin (0.2 - 1.3 mg/dL) 3.1 H Direct Bilirubin (< 0.4 mg/dL) 1.1 H AST (17 - 59 U/L) 119 H ALT (21 - 72 U/L) 76 H Alkaline Phosphatase (< 127 U/L) 98 Creatine Kinase (55 - 170 U/L) 395 H Troponin I (<0.11 ng/ml) 1.71 *H [id number]-[id number] Pept (<125 pg/mL) 4650 H Total Protein (6.3 - 8.2 g/dL) 6.1 L Albumin (3.5 - 5.0 g/dL) 3.0 L Globulin (1.9 - 4.2 gm/dL) 3.1 Albumin/Globulin Ratio (1.1 - 2.2 %) 1.0 L Free T4 (0.78 - 2.44 ng/dL) 1.94 Total T3 (0.97 - 1.69 ng/mL) 0.61 L TSH &T3 &Free T4 Intrp (0.27 - 4.20 uIU/mL) 1.260 Hematology CBC w Diff NO MAN DIFF REQ WBC (4.8 - 10.8 /CUMM) 10.7 RBC (4.70 - 6.10 /CUMM) 5.48 Hgb (14.0 - 18.0 G/DL) 17.5 Hct (42 - 52 %) 52.2 H MCV (80.0 - 94.0 FL) 95.3 H MCH (27.0 - 31.0 PG) 31.9 H MCHC (33.0 - 37.0 G/DL) 33.4 RDW (11.5 - 14.5 %) 16.3 H Plt Count (130 - 400 /CUMM) 151 MPV (7.4 - 10.4 FL) 8.7 Gran % (42.2 - 75.2 %) 88.5 H Lymphocytes % (20.5 - 51.1 %) 5.5 L Monocytes % (1.7 - 9.3 %) 6.0 Eosinophils % (0 - 5 %) 0 Basophils % (0.0 - 2.0 %) 0 Absolute Granulocytes (1.4 - 6.5 /CUMM) 9.5 H Absolute Lymphocytes (1.2 - 3.4 /CUMM) 0.6 L Absolute Monocytes (0.10 - 0.60 /CUMM) 0.6 Absolute Eosinophils (0.0 - 0.7 /CUMM) 0 Absolute Basophils (0.0 - 0.2 /CUMM) 0 Miscellaneous Ref Lab Test Result Pending Toxicology Serum Alcohol (<10 MG/DL) < 10.0 Imaging/Other Studies: NCHCT normal. Echo- apical thrombus, apical hypokinesis, EF 50%. Assessment/Plan Assessment: 72 year old man AMS change, no obtunded. Was found unresponsive. Per history ingested Nyquil last night and also got Ativan for agitation last night. Pupil constriction likely secondary to Ativan and poor clearance. I do not feel that he has meningitis/encephalitis, at most sepsis, and he is on broad spectrum. Cannot exclude a small embolic infarct, but less likely due to elevated INR ar baseline and non focal exam. Definitely does not explain obtundation. Recommendations: 1. MRI brain - at minimum DWI sequence. 2. EEG 3. Avoid Ativan. 4. Treat for spesis. 5. Treat ARF. 6. Check ammonia. Consult Acknowledgment - Thank you for your consult request.
--- NOTE | 2017-08-03 16:05 | Cons- Vascular Surgery ---
General Information and HPI Consulting Request Date of Consult: 08/03/17 Requested By: Amelia KOEHLER,Kurt Robles Reason for Consult: Bilateral lower extremity swelling and discoloration of left toe and forefoot Source of Information: old records History of Present Illness: This is a 72-year-old male with multiple medical problems who was found down at his apartment and brought in to the hospital. He is unable to communicate at this time. He is being treated for mental status changes. Also noted is a discolored toe in addition to an area of ecchymosis on the forefoot. Patient is not able to answer questions at this time but is actively moving the lower extremity. Allergies/Medications Allergies: Coded Allergies: No Known Allergies (08/02/17) Home Med List: Aspirin (Adult Low Dose Aspirin EC) 81 MG TABLET.DR 1 TAB PO DAILY HEART/BLOOD (Reported) Carvedilol 25 MG TABLET 1 TAB PO BID HEART/BP (Reported) Lisinopril 20 MG TABLET 1 TAB PO DAILY BP (Reported) Current Medications: Current Medications Sig/Richard Start time Last Medication Dose Route Stop Time Status Admin Aspirin 300 MG 0300 08/04 0300 AC [place] Aspirin 325 MG DAILY 08/02 2345 CAN PO Aspirin 300 MG DAILY 08/02 2345 DC 08/03 [place] 0324 Azithromycin 500 MG ONCE ONE 08/02 2300 DC 08/02 Dextrose/Water 250 ML IV 08/02 2359 2334 Ceftazidime 1,000 MG ONCE ONE 08/02 1930 CAN IV 08/02 1931 Ceftriaxone Sodium 2,000 MG ONCE ONE 08/02 2300 DC 08/02 IV 08/02 2301 2335 Cyanocobalamin/ 1 BAG DAILY 08/03 1415 AC Thiamine/Pyridoxine IV Dextrose/Water 1,000 ML Diltiazem HCl 125 MG Q24H 08/02 1430 AC 08/02 Sodium Chloride 100 ML IV 1446 Furosemide 20 MG ONCE ONE 08/02 2315 DC 08/02 IV 08/02 2316 2336 Furosemide 40 MG ONCE ONE 08/02 2100 CAN IV 08/02 2101 Heparin Sodium 0 .STK-MED ONE 08/02 1613 DC (Porcine) .ROUTE Heparin Sodium 25,000 UNIT Q24H 08/02 1545 AC 08/02 (Porcine) IV 1636 Sodium Chloride 500 ML Lorazepam 1 MG Q1 PRN 08/02 2330 DC IV Lorazepam 0 .STK-MED ONE 08/02 2020 DC .ROUTE Lorazepam 0.5 MG ONCE ONE 08/03 1999 DC 08/02 IV 08/02 Lorazepam 0.5 MG ONCE PRN 08/03 1999 DC IV 08/02 2359 Lorazepam 0.5 MG ONCE ONE 08/02 1845 DC 08/02 IV 08/02 1846 1844 Lorazepam 0 .STK-MED ONE 08/02 183 DC .ROUTE Lorazepam 0.5 MG ONCE ONE 08/02 1830 DC 08/02 IV 08/02 1831 1835 Metoprolol Tartrate 0 .STK-MED ONE 08/02 1720 DC IV Metoprolol Tartrate 5 MG ONCE ONE 08/02 1715 DC 08/02 IV 08/02 1716 1720 Naloxone HCl 0.4 MG Q1 08/03 1000 DC 08/03 IV 08/03 1101 0950 Naloxone HCl 0.4 MG ONCE ONE 08/03 0945 CAN SC 08/03 0946 Nystatin 1 CYN BID PRN 08/03 0645 AC TOP Pantoprazole Sodium 40 MG DAILY 08/03 1000 AC 08/03 IV 0926 Phytonadione 10 MG ONCE ONE 08/03 1415 DC SC 08/03 1416 Sodium Chloride 1,000 ML ONCE ONE 08/02 1430 DC 08/02 IV 08/02 2109 1430 Thiamine HCl 100 MG Q8H 08/02 2330 AC 08/03 Sodium Chloride 50 ML IV 0823 Vancomycin HCl 1,500 MG ONCE ONE 08/02 2030 DC 08/02 Dextrose/Water 250 ML IV 08/02 2159 2334 Past History Medical History Blood Transfusion Hx: No EENT: NONE Cardiovascular: AFIB, hypertension, myocardial infarction, syncope Respiratory: NONE Gastrointestinal: NONE Hepatic: NONE Renal: NONE Musculoskeletal: NONE Psychiatric: NONE Endocrine: NONE Blood Disorders: NONE Cancer(s): NONE GRAIN BUYER/Reproductive: NONE Surgical History Pertinent Surgical History: non-contributory Psychosocial History Where Do You Live? Home Services at Home: None Smoking Status: Never Smoked ETOH Use: occasional use Illicit Drug Use: denies illicit drug use Review of Systems Review of Systems: Noncontributory due to patient's mental status Review of Systems Constitutional: Reports: see HPI. Exam & Diagnostic Data Vital Signs and I&O Vital Signs Date Time Temp Pulse Resp B/P B/P Pulse O2 O2 Flow FiO2 Mean Ox Delivery Rate 08/03 1400 92 23 167/66 03/ 1313 Nasal 4.0L Cannula 08/03 1312 94 Nasal 4.0L Cannula 08/03 1200 96.6 85 23 140/80 03/ 1200 96.6 85 23 140/80 94 Nasal 4.0L Cannula 08/03 1000 86 26 158/66 03/ 0800 96.6 78 24 120/80 03/ 0800 94 Nasal 4.0L Cannula 08/03 0800 96.6 78 24 120/80 94 Nasal 4.0L Cannula 08/03 0600 80 30 112/72 03 0356 94 Nasal 4.0L Cannula 08/03 0200 88 26 129/63 03/ 0000 96.9 93 25 135/64 03/ 0000 95 Nasal 4.0L Cannula 08/02 2300 96.9 82 28 132/65 96 Nasal 4.0L Cannula 08/02 2200 97.7 82 23 150/75 03 2200 97.7 83 23 150/75 03 2130 94 Nasal 4.0L Cannula 08/02 2034 96.8 81 20 110/60 936 Nasal 4.0L Cannula 08/02 1904 89 118/66 03/01 1849 166 18 86/60 03/01 1726 158 22 92/70 100 Nasal 4.0L Cannula 08/02 1720 172 92/60 03/ 1715 175 22 92/60 95 Nasal 4.0L Cannula Intake & Output 08/03 1600 08/03 0800 08/03 0000 08/02 1600 08/02 0800 08/02 0000 Intake Total 209 1850 1140 Output Total 350 100 430 Balance -141 1750 710 Intake, IV 209 1850 1140 Intake, Oral 0 0 Number 0 0 Bowel Movements Output, Urine 350 100 430 Patient 233 lb 246 lb 208 lb Weight Weight Bed scale Bed scale Reported by Patient Measurement Method Last 24 Hours of Labs: Laboratory Tests 08/03 08/03 08/03 08/03 08/03 1130 0950 0950 0838 0525 Chemistry Lactic Acid (0.7 - 2.1 mmol/L) 2.1 2.2 H 2.3 H Toxicology Urine Opiates Screen (>2000 NG/ML) < 100 Methadone Screen (>300 NG/ML) < 40 Barbiturate Screen (>200 NG/ML) < 60 Ur Phencyclidine Scrn (>25 NG/ML) < 6.00 Amphetamines Screen (>1000 NG/ML) < 100 U Benzodiazepines Scrn (>200 NG/ML) < 85 Urine Cocaine Screen (>300 NG/ML) < 50 Urine Cannabis Screen (>50 NG/ML) < 5.00 Urines Ur Random Creatinine (mg/dL) 120.0 Ur Random Microalbumin (<1.7 mg/dl) 28.3 H U Random Total Protein (0 - 12 mg/dL) 67 H Ur Creatinine 24 Hour Pending Ur Total Protein 24 Hr Pending Protein/Creatinin Ratio (< 0.2) 0.5 H Protein/Creat Ratio 24h Pending U Cystine/Creat Ratio (mcg/mg) 235.83 U Protein Electrophores Pending Urine Albumin (%) Pending U Qljpj-5-Dqbhbjrm Pending U Yfqvh-7-Fhdspmdp Pending U Beta Globulin Pending U Gamma Globulin Pending U Abnormal Prot Band 1 Pending U Abnormal Prot Band 2 Pending U Abnormal Prot Band 3 Pending 08/03 08/03 08/03 0525 0500 0150 Chemistry Sodium (137 - 145 mmol/L) 141 Potassium (3.5 - 5.1 mmol/L) 4.1 Chloride (98 - 107 mmol/L) 103 Carbon Dioxide (22 - 30 mmol/L) 28 Anion Gap (5 - 16) 10 BUN (9 - 20 mg/dL) 62 H Creatinine (0.7 - 1.2 mg/dL) 2.3 H Estimated GFR (>60 ml/min) 28 L Glucose (65 - 99 mg/dL) 104 H Lactic Acid (0.7 - 2.1 mmol/L) 2.5 H Calcium (8.4 - 10.2 mg/dL) 9.2 Phosphorus (2.5 - 4.5 mg/dL) 5.7 H Magnesium (1.6 - 2.3 mg/dL) 2.0 Total Bilirubin (0.2 - 1.3 mg/dL) 2.1 H AST (17 - 59 U/L) 95 H ALT (21 - 72 U/L) 70 Troponin I (<0.11 ng/ml) 1.74 *H Prot Electrophoresis Pending Total Protein (PEP) Pending Albumin (3.5 - 5.0 g/dL) 2.3 L Albumin % (PEP) Pending [id number] Pending Tlnrw-7-Otkauztjm Pending Fgrz-4-Yfwwxred Pending Mbyi-7-Aygqkjmn Pending Gamma Globulins Pending Abnorm Protein Band 1 Pending Abnorm Protein Band 2 Pending Abnorm Protein Band 3 Pending Coagulation PT (9.4 - 12.5 SEC) 22.2 H INR (0.90 - 1.17) 2.13 H APTT (25 - 37 SEC) 68 H Hematology CBC w Diff MAN DIFF ORDERED WBC (4.8 - 10.8 /CUMM) 12.1 H RBC (4.70 - 6.10 /CUMM) 4.87 Hgb (14.0 - 18.0 G/DL) 15.6 Hct (42 - 52 %) 47.1 MCV (80.0 - 94.0 FL) 96.7 H MCH (27.0 - 31.0 PG) 31.9 H MCHC (33.0 - 37.0 G/DL) 33.0 RDW (11.5 - 14.5 %) 16.8 H Plt Count (130 - 400 /CUMM) 137 MPV (7.4 - 10.4 FL) 8.0 Gran % (42.2 - 75.2 %) 87.7 H Lymphocytes % (20.5 - 51.1 %) 6.2 L Monocytes % (1.7 - 9.3 %) 6.0 Eosinophils % (0 - 5 %) 0 Basophils % (0.0 - 2.0 %) 0.1 Absolute Granulocytes (1.4 - 6.5 /CUMM) 10.6 H Segmented Neutrophils (42.2 - 75.2 %) 95 H Absolute Lymphocytes (1.2 - 3.4 /CUMM) 0.7 L Lymphocytes (20.5 - 51.1 %) 3 L Monocytes (1.7 - 9.3 %) 2 Absolute Monocytes (0.10 - 0.60 /CUMM) 0.7 H Absolute Eosinophils (0.0 - 0.7 /CUMM) 0 Absolute Basophils (0.0 - 0.2 /CUMM) 0 Platelet Estimate (ADEQUATE) ADEQUATE Polychromasia 1+ Poikilocytosis 1+ Ovalocytes 1+ [place] Cells FEW Immunology Complement C3 Pending Complement C4 Pending Other Body Source Fld Total RBCs Counted (%) 100 Serology Hepatitis A IgM Ab (NONREACTIVE) NONREACTIVE Hep Bs Antigen (NONREACTIVE) NONREACTIVE Hep B Core IgM Ab Conf (NONREACTIVE) NONREACTIVE Hepatitis C Antibody (NONREACTIVE) NONREACTIVE HIV 1&2 Ab Western Blot (NONREACTIVE) NONREACTIVE Toxicology Random Vancomycin (ug/ml) Pending Salicylates (0 - 20.0 mg/dL) < 1.0 Acetaminophen (10.0 - 30.0 ug/mL) < 10.0 L 08/02 08/02 08/02 2222 1836 1810 Blood Gas pH (7.35 - 7.45 PH) 7.41 pCO2 (35 - 45 TORR) 33 L pO2 (80 - 100 TORR) 92 HCO3 (21 - 28 MEQ/L) 21 ABG O2 Sat (Measured) (>96.0 %) 96.0 P-50 (Temp Corrected) N Carboxyhemoglobin (1.5 - 5.0 %) 0.2 L O2 Concentration % 4L Temperature (97.0 - 100.0 FARH) 97.0 O2 Delivery Method NC Chemistry Lactic Acid (0.7 - 2.1 mmol/L) 3.2 H 4.3 H Troponin I (<0.11 ng/ml) 1.98 *H Coagulation APTT (25 - 37 SEC) > 120 *H Miscellaneous Phlebotomy Draw Site RIGHT RADIAL 08/02 08/02 1635 1635 Toxicology Urine Opiates Screen (>2000 NG/ML) < 100 Methadone Screen (>300 NG/ML) < 40 Barbiturate Screen (>200 NG/ML) < 60 Ur Phencyclidine Scrn (>25 NG/ML) < 6.00 Amphetamines Screen (>1000 NG/ML) < 100 U Benzodiazepines Scrn (>200 NG/ML) < 85 Urine Cocaine Screen (>300 NG/ML) < 50 Urine Cannabis Screen (>50 NG/ML) < 5.00 Urines Urine Color (YEL,AMB,STR) YEL Urine Clarity (CLEAR) HAZY H Urine pH (5.0 - 8.0) 6.0 Ur Specific [place] (1.001 - 1.035) 1.025 Urine Protein (NEG,<30 MG/DL) 100 H Urine Ketones (NEG) TRACE H Urine Nitrite (NEG) NEG Urine Bilirubin (NEG) NEG@ICTO Urine Urobilinogen (0.1 - 1.0 EU/dl) 2.0 H Ur Leukocyte Esterase (NEG) NEG Ur Microscopic SEDIMENT EXAMINED Urine RBC (0 - 5 /HPF) 10-15 H Urine WBC (0 - 2 /HPF) 3-5 H Ur Epithelial Cells (NONE,FEW) RARE Urine Bacteria (NEG/NONE) RARE H Urine Hemoglobin (NEG) LARGE H Ur Random Creatinine (mg/dL) 173.2 Ur Random Sodium (30 - 90 mmol/L) 8 L Ur Random Potassium (mmol/L) 36.4 Fraction Sodium Excret (<1% %) 0.1 Urine Glucose (N MG/DL) NEG Other Results: Bilateral lower extremities are well-perfused. There is no evidence of acute ischemia. He does have a dopplerable signal in the dorsalis pedis position. There is no evidence of chronic PAD. He does have 2 areas of ulceration on the foot consistent with likely trauma. Also has a discolored cut toe which may be ecchymotic in its origin. Assessment/Plan Assessment/Plan 72-year-old male with multiple medical problems and injury to the foot- r/o PAD 1.) Recommend period of observation due to the patient's acute clinical illness 2.) Bilateral arterial lower extremity duplex 3.) Recommend carotid duplex due to mental status changes 4.) Podiatric consult for foot care 5.) Recommend heel protection due to likely long hospital stay 6.) Would place bacitracin on forefoot abrasion and keep toe dry. 7.) Will follow with you Consult Acknowledgment - Thank you for your consult request.
[2017-08-03 17:40] LABS: PTT 58 SEC (25-37)
--- NOTE | 2017-08-03 18:59 | CT SCAN REPORT ---
EXAMINATION: CT HEAD WITHOUT CONTRAST CLINICAL INFORMATION: Altered mental status COMPARISON: CT 10:36 AM TECHNIQUE: Contiguous axial imaging was performed from the skull base to vertex without intravenous administration of contrast. DLP: 1847 mGy-cm FINDINGS: Patient motion degrades image quality therefore the diagnostic accuracy of this examination is limited. Motion artifact is slightly less than the earlier study. No intra-axial or extra-axial hemorrhage. No acute territorial infarct. Ventricles and sulci appear normal for age. Preservation of choudhury-white matter differentiation. No mass, mass effect, or midline shift. No fracture. The mastoid air cells and visualized paranasal sinuses are clear. IMPRESSION: No acute intracranial pathology demonstrated. Image quality is degraded by patient motion artifact.
--- NOTE | 2017-08-03 20:49 | PN- Cardiology ---
Subjective Subjective: * Patient is now obtunded and does not respond to verbal stimuli. * sinus rhythm with PAC's * increased creatinine to 2.3 * troponin is 1.74 with a slight downward trend Objective Vital Signs and I&Os Vital Signs Date Time Temp Pulse Resp B/P B/P Pulse O2 O2 Flow FiO2 Mean Ox Delivery Rate 08/03 1600 96.6 90 20 170/74 94 Nasal 4.0L Cannula 08/03 1600 94 Nasal 4.0L Cannula 08/03 1400 92 23 167/66 08/03 1313 Nasal 4.0L Cannula 08/03 1312 94 Nasal 4.0L Cannula 08/03 1200 96.6 85 23 140/80 03/ 1200 96.6 85 23 140/80 94 Nasal 4.0L Cannula 08/03 1000 86 26 158/66 03/ 0800 96.6 78 24 120/80 03/ 0800 94 Nasal 4.0L Cannula 08/03 0800 96.6 78 24 120/80 94 Nasal 4.0L Cannula 08/03 0600 80 30 112/72 08/03 0356 94 Nasal 4.0L Cannula 08/03 0200 88 26 129/63 03/ 0000 96.9 93 25 135/64 03/ 0000 95 Nasal 4.0L Cannula 08/02 2300 96.9 82 28 132/65 96 Nasal 4.0L Cannula 08/02 2200 97.7 82 23 150/75 03/ 2200 97.7 83 23 150/75 03/ 2130 94 Nasal 4.0L Cannula Intake & Output 08/03 1600 / 0800 / 0000 08/02 1600 08/02 0800 08/02 0000 Intake Total 209 1850 1140 Output Total 350 100 430 Balance -141 1750 710 Intake, IV 209 1850 1140 Intake, Oral 0 0 Number 0 0 Bowel Movements Output, Urine 350 100 430 Patient 233 lb 246 lb 208 lb Weight Weight Bed scale Bed scale Reported by Patient Measurement Method Physical Exam: General: WD/obese male in NAD; obtunded HEENT: NC/AT, PERRl, EOMI Neck: no JVD, no carotid bruit Heart: RRR, no murmur Lungs: clear bilaterally Abdomen: soft, obese, NT, +ve bowel sounds Extremities: 3+ bilateral leg edema with weeping legs Assessment/Plan Assessment/Plan * The patient is now obtunded which is a change from yesterday although his baseline status is not known. No evidence of intracerebral bleed or trauma or CVA on his head CT. Would consider oversedation from Ativan with decreased hepatic clearance. Do not give any more sedation. Repeat and ABG since this patient has an elevated D-dimer and may have a PE despite his elevated INR. Infection, or impending sepsis is also in the differential. Obtain a neurology consult. * This patient has a rise in cardiac enzymes consistent with a type 2 LA. He has no chest discomfort and there are no clear ST segment elevations. Monitor his cardiac enzymes until they peak. He will not be able to tolerate nitrates due to his blood pressure which dropped after receiving NTG by EMS. Rate control will be the most effective means of limiting any myocardial ischemia. Continue IV heparin and begin aspirin 325mg daily. We will avoid a statin due to his elevated LFT's for now. * Atrial fibrillation. It is unknown how long this patient had been in atrial fibrillation but due to hemodynamic instability he was cardioverted to a sinus rhythm and is hemodynamically improved. 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 When patient is more stable a NOELLE may be pursued to try and differentiate thrombus from tumor. Continue IV heparin. Follow INR. Continue telemetry? Yes
[2017-08-04] VITALS (9 sets, daily range): BP systolic 112–174; BP diastolic 66–83
[2017-08-04 01:09] LABS: PTT 73 SEC (25-37)
--- NOTE | 2017-08-04 01:38 | RADIOLOGY REPORT ---
EXAMINATION: XR PORTABLE CHEST CLINICAL INFORMATION: Dyspnea on BiPAP COMPARISON: 08/02/2017 TECHNIQUE: Portable frontal view of the chest was obtained. FINDINGS: Cardiac leads overlie the chest. The lungs are well expanded. There are increasing bibasilar opacities. Likely small pleural effusions. No pneumothorax. The cardiomediastinal silhouette is unchanged. IMPRESSION: Likely small pleural effusions. Increasing bibasilar opacities which could represent atelectasis or pneumonia.
[2017-08-04 05:20] LABS: ABSOLUTE BASOPHIL COUNT 0 /CUMM (0.0-0.2); ABSOLUTE EOSINOPHIL COUNT 0 /CUMM (0.0-0.7); ABSOLUTE LYMPH COUNT 0.5 /CUMM (1.2-3.4); ABSOLUTE MONOCYTE COUNT 0.5 /CUMM (0.10-0.60); BASOPHIL % 0 % (0.0-2.0); EOSINOPHIL % 0 % (0-5); GRANULOCYTE % 90.1 % (42.2-75.2); HEMATOCRIT 45.5 % (42-52); MEAN CORPUSCULAR HGB 31.9 PG (27.0-31.0); MEAN CORPUSCULAR VOLUME 96.7 FL (80.0-94.0); MEAN PLATELET VOLUME 8.1 FL (7.4-10.4); PLATELET COUNT 119 /CUMM (130-400); RBC DISTRIBUTION WIDTH 16.8 % (11.5-14.5); RED BLOOD CELL CT 4.71 /CUMM (4.70-6.10)
--- NOTE | 2017-08-04 08:10 | PN- Resident CRCU ---
Racquel Mahajan 08/04/17 0809: Subjective HPI/CRCU Issues: Altered mental status A. fib with RVR Hypoxemic respiratory failure Type II MS RICHI 24 Hour Events: Overnight patient was noted to have work of breathing and placed on BiPAP. Seen and examined patient today. He continues to be obtunded and not answering questions appropriately or obeying simple commands. Continues to be agitated. Spoke to family and landlord. Apparently when the landlord did not hear from him in three days she went to check on him. When he did not open the door she opened the door and went in and found him lying on his couch surrounded in his urine and feces. Per his brother and son he had been complaining respiratory symptoms "difficulty breathing" about a week a ago he had a fall and went to urgent care and was prescribe a antibiotic. He is also not known to abuse alcohol. He does have a tendency to be noncompliant with his medications or take his medications inappropriately. Of note his brother Emerson Pike would like to be contacted on cell number Objective Vital Signs & I&O Last 8 Hrs of Vitals and I&O: Intake & Output 08/04 1600 08/04 0800 08/04 0000 Intake Total 483 588 Output Total 400 470 Balance 83 118 Intake, IV 483 588 Intake, Oral 0 Number 0 0 Bowel Movements Output, Urine 400 470 Patient 232 lb Weight Weight Bed scale Measurement Method Laboratory Tests 08/04 08/04 08/04 1234 0445 0110 Blood Gas pH (7.35 - 7.45 PH) 7.38 pCO2 (35 - 45 TORR) 42 pO2 (80 - 100 TORR) 98 HCO3 (21 - 28 MEQ/L) 24 ABG O2 Sat (Measured) (>96.0 %) 97.0 P-50 (Temp Corrected) N Carboxyhemoglobin (1.5 - 5.0 %) 0.8 L O2 Concentration % .50 Respiration Rate (BPM) 24 O2 Delivery Method BIPAP Vent Mode ST Expiratory Pressure (CM H2O P) 4 Inspiratory Pressure (CM H2O P) 20 Chemistry Sodium (137 - 145 mmol/L) 144 Potassium (3.5 - 5.1 mmol/L) 3.9 Chloride (98 - 107 mmol/L) 105 Carbon Dioxide (22 - 30 mmol/L) 28 Anion Gap (5 - 16) 11 BUN (9 - 20 mg/dL) 69 H Creatinine (0.7 - 1.2 mg/dL) 2.2 H Estimated GFR (>60 ml/min) 29 L Glucose (65 - 99 mg/dL) 90 Calcium (8.4 - 10.2 mg/dL) 9.0 Phosphorus (2.5 - 4.5 mg/dL) 4.5 Magnesium (1.6 - 2.3 mg/dL) 1.9 Total Bilirubin (0.2 - 1.3 mg/dL) 1.5 H AST (17 - 59 U/L) 86 H ALT (21 - 72 U/L) 72 Albumin (3.5 - 5.0 g/dL) 2.3 L Coagulation APTT (25 - 37 SEC) 102 *H Hematology CBC w Diff NO MAN DIFF REQ WBC (4.8 - 10.8 /CUMM) 10.0 RBC (4.70 - 6.10 /CUMM) 4.71 Hgb (14.0 - 18.0 G/DL) 15.1 Hct (42 - 52 %) 45.5 MCV (80.0 - 94.0 FL) 96.7 H MCH (27.0 - 31.0 PG) 31.9 H MCHC (33.0 - 37.0 G/DL) 33.0 RDW (11.5 - 14.5 %) 16.8 H Plt Count (130 - 400 /CUMM) 119 L MPV (7.4 - 10.4 FL) 8.1 Gran % (42.2 - 75.2 %) 90.1 H Lymphocytes % (20.5 - 51.1 %) 4.6 L Monocytes % (1.7 - 9.3 %) 5.3 Eosinophils % (0 - 5 %) 0 Basophils % (0.0 - 2.0 %) 0 Absolute Granulocytes (1.4 - 6.5 /CUMM) 9.0 H Absolute Lymphocytes (1.2 - 3.4 /CUMM) 0.5 L Absolute Monocytes (0.10 - 0.60 /CUMM) 0.5 Absolute Eosinophils (0.0 - 0.7 /CUMM) 0 Absolute Basophils (0.0 - 0.2 /CUMM) 0 Miscellaneous Phlebotomy Draw Site RIGHT RADIAL 08/04 08/03 0020 1720 Chemistry Ammonia (9 - 30 umol/L) < 9 L Coagulation APTT (25 - 37 SEC) 73 H 58 H Microbiology Date/Time Procedure - Status Source Growth 08/03 1816 Respiratory Culture - CAN LOWER RESP Cancelled: SPECIMEN NOT RECEIVED IN LABORATORY 08/03 1816 Gram Stain - CAN LOWER RESP Cancelled: SPECIMEN NOT RECEIVED IN LABORATORY Exam General Appearance: moderate distress, obtunded Head: atraumatic Neck: supple Respiratory: wheezing Cardiovascular: irregularly irregular (multiple ectopies) Gastrointestinal: distention Extremities: pedal edema Skin: skin laceration, excoriations and erythema noted on b/l lower extremities and third right toe Current Medications: Current Medications Sig/Richard Start time Last Medication Dose Route Stop Time Status Admin Acetaminophen 1,000 MG ONCE ONE 08/04 0615 DC 08/04 N/A 1 UNIT IV 08/04 0629 0608 Albuterol Sulfate 3 ML Q4P PRN 08/04 1330 AC 08/04 INH 1321 Albuterol Sulfate 3 ML ONCE ONE 08/04 0030 DC 08/04 INH 08/04 0031 0032 Aspirin 300 MG 0300 08/04 0300 AC 08/04 [place] 0439 Azithromycin 500 MG DAILY@1900 / 1900 DC 08/03 Dextrose/Water 250 ML IV 2214 Ceftriaxone Sodium 2,000 MG DAILY@1900 08/03 1900 AC 08/03 IV 2216 Cyanocobalamin/ 1 BAG DAILY@1600 08/04 1600 AC Thiamine/Pyridoxine IV Dextrose/Water 1,000 ML Cyanocobalamin/ 1 BAG DAILY 08/03 1415 DC 08/03 Thiamine/Pyridoxine IV 1611 Dextrose/Water 1,000 ML Diltiazem HCl 125 MG Q12H 08/04 1115 AC Sodium Chloride 100 ML IV Diltiazem HCl 125 MG Q24H 08/02 1430 DC 08/03 Sodium Chloride 100 ML IV 1611 Doxycycline Hyclate 100 MG Q12H 08/04 1315 AC 08/04 Sodium Chloride 100 ML IV 1407 Doxycycline Hyclate 100 MG Q12H 08/04 1245 DC Dextrose/Water 100 ML IV Heparin Sodium 25,000 UNIT Q24H / 1545 AC 08/04 (Porcine) IV 0902 Sodium Chloride 500 ML Nystatin 1 CYN BID PRN 08/03 0645 AC TOP Pantoprazole Sodium 40 MG DAILY 08/03 1000 AC 08/04 IV 0901 Phytonadione 10 MG ONCE ONE 08/03 1415 DC 08/03 SC 08/03 1416 1611 Thiamine HCl 100 MG Q8H 08/02 2330 AC 08/04 Sodium Chloride 50 ML IV 0644 Vancomycin HCl 1,500 MG ONCE ONE 08/04 1245 DC Dextrose/Water 250 ML IV 08/04 1344 CXR Findings: SERVICE DATE: 08/04/17 EXAM TYPE: RAD - XRY-PORTABLE CHEST XRAY FINDINGS: Cardiac leads overlie the chest. The lungs are well expanded. There are increasing bibasilar opacities. Likely small pleural effusions. No pneumothorax. The cardiomediastinal silhouette is unchanged. IMPRESSION: Likely small pleural effusions. Increasing bibasilar opacities which could represent atelectasis or pneumonia. Impression/Plan Impression/Problem List Impression: 72 year old gentleman with past medical history significant for diastolic heart failure, hypertension syncope, per family he had an MS and had a stent placement at [facility] about 7 years ago, recent fall couple of days prior to admission, brought in by ambulance for altered mental status. Admission found to have transaminitis, increased INR, elevated troponin. Afebrile overnight Sinus arrhythmia, heart rate 781 16 Blood pressure systolic [id number], diastolic 6980 Total bxoihd=2924 total output 1550 Altered mental status Unclear etiology at this time. Possibly secondary to underlying infection versus polypharmacy versus stroke (less likely) obtained MRI if stable enough Preliminary blood cultures show no growth, no increased WBC, electrolytes within normal limits Transaminitis trended down Acetaminophen levels within normal CT head 3 showed no acute intracranial pathology or hemorrhage CT abdomen and pelvis showed sigmoid diverticulosis without evidence of diverticulitis Acute Respiratory failure multifactorial (aspiration/pneumonia) continue BiPap TRC/nebs Chest x-ray done today shows increasing bibasilar opacities which could represent atelectasis or pneumonia. On doxycycline and vancomycin uptake in random Vanco level tomorrow morning and dose per creatinine Chest x-ray done today shows Increasing bibasilar opacities which could represent atelectasis or pneumonia. ID on board appreciate recommendations Atrial fibrillation with Rapid ventricular rate Status post synchronized cardioversion Continue IV heparin Continue IV Cardizem drip titrate for heart rate and blood pressure A cardiogram done 08/02/2017 showed normal EF of 50% with inferoapical and apical hypokinesis and large pedicle thrombus Positive troponins peaked to 1.98 and trended down likely type II MS cardiology on board appreciate recomendation Transaminitis LTF's trending down Hepatitis panel and HIV nonreactive, RICHI Cr/bun 69/2.2 likely ischemic ATN Cellulitis Will start IV vancomycin Afebrile white count normalized Lower extremity Dopplers ruled out DVT Aterial doppler showed patent deep arterial systems of the bilateral lower extremities. Deep arteries of the left calf were not clearly visualized, however , left dorsal pedis artery was documented as patent. DVT: IV heparin full code Problem List: 1. Hypotension 2. Elevated troponin 3. Rapid atrial fibrillation Pain Ratin Tomorrow's Labs & Rationales: cbc/icu Plan DVT/Prophylaxis: pharmacological Salas Contreras MD 08/04/17 0935: Attending MD Review Statement Attending Sign Off Attending Cosign Statement: I have: examined this patient, reviewed avalbl EMR data, personally reviewd images, discussd w/resident/PA/TEST ENG, discussed mgmt plan w/tate, discussed mgmt plan w/CM, discussed mgmt plan w/pt, agreed w/resident/PA/TEST ENG, amended to note. Other Findings: ISalas M.D. have examined this patient, reviewed available EMR data, personally reviewed images, discussed with resident/PA/TEST ENG, discussed management plan with housestaff and nursing staff, discussed managment plan all of healthcare providers, discussed management plan with patient and/or family, agreed with resident/PA/TEST ENG. The past history and parts of the chart have been autopopulated. Impression 72 year old man * ams, likley ativan induced, less likely infectious cause * type 2 nstemi * ckd * hypoxemic respiratory failure, likely aspiration pneumonia Plan -f/u cardiology, neurology, ID, vascular surgery -cont empiric abx -f/u all cx DVT prophylaxis at all times TTS 35 min
--- NOTE | 2017-08-04 11:13 | ULTRASOUND REPORT ---
EXAMINATION: DUPLEX BILATERAL CAROTID ULTRASOUND CLINICAL INFORMATION: Altered mental status. COMPARISON: No similar prior examinations available for comparison. TECHNIQUE: Real-time ultrasound and Doppler techniques (integrating B-mode 2D vascular images, Doppler spectral analysis and color flow Doppler imaging) were utilized to interrogate the extracranial carotid and vertebral arteries bilaterally. The degree of stenosis determined by criteria similar to NASCET. FINDINGS: Right side: 1. Small amount of plaque is seen in the ECA/ICA region. 2. The common carotid artery velocity is 164 cm/s. 3. The internal carotid artery velocities are 84 cm/s systolic and 26 cm/s diastolic. 4. The external carotid artery velocity is 130 cm/s. Left side: 1. Small amount of plaque is seen in the ECA/ICA region. 2. The common carotid artery velocity is 157 cm/s. 3. The internal carotid artery velocities are 57 cm/s systolic and 13 cm/s diastolic. 4. The external carotid artery velocity is 124 cm/s. ADDITIONAL FINDINGS: 1. The vertebral arteries show antegrade flow. IMPRESSION: 1. RIGHT: Minimal, nonhemodynamically significant stenosis of the proximal right internal carotid artery corresponding to a 0-49% stenosis by velocity criteria. 2. LEFT: Minimal, nonhemodynamically significant stenosis of the proximal left internal carotid artery corresponding to a 0-49% stenosis by velocity criteria. 3. No evidence for hemodynamically significant stenosis in the external carotid arteries.
--- NOTE | 2017-08-04 11:19 | ULTRASOUND REPORT ---
EXAMINATION: COLOR-FLOW DUPLEX IMAGING OF THE BILATERAL LOWER EXTREMITY ARTERIAL SYSTEM. VELOCITY MEASUREMENTS THROUGHOUT THE FEMORAL ARTERIES. CLINICAL INFORMATION: 72-year-old male with lower extremity edema. COMPARISON: Bilateral lower extremity DVT study 08/03/2017 TECHNIQUE: Grayscale, color and spectral Doppler imaging was obtained of the deep arterial system of the bilateral lower extremities. Examination was limited due to its portable nature and the patient's inability to remain still. RIGHT FEMORAL RUNOFF VELOCITIES: The right common femoral artery, profundus femoris artery, superficial femoral artery and popliteal artery are patent. Mildly elevated velocity within the distal aspect of the right superficial femoral artery suggests possible stenosis. The right anterior tibial artery and dorsal pedis artery are patent. Waveforms are difficult to evaluate given patient motion. LEFT FEMORAL RUNOFF VELOCITIES: The left common femoral artery, profundus femoris artery, superficial femoral artery and popliteal artery are patent. Mildly elevated velocities within the left common femoral artery and distal left superficial femoral artery suggests possible stenosis. Deep arteries of the left calf were not clearly visualized. The left dorsal pedis artery is patent. Waveforms are difficult to evaluate given patient motion. IMPRESSION: Patent deep arterial systems of the bilateral lower extremities. Deep arteries of the left calf were not clearly visualized, however, left dorsal pedis artery was documented as patent. A few focal regions of mildly increased velocity as detailed above possibly suggest stenosis. Waveforms are difficult to evaluate given patient motion.
--- NOTE | 2017-08-04 11:28 | PN- Infect Dx ---
Subjective Subjective: Remains afebrile; persistent LE's swelling; worsening erythema L LE. Agitated at times. Review of Systems Comments: 12 points reviewed as noted, otherwise negative. Objective Last 24 Hrs of Vital Signs/I&O Vital Signs Date Time Temp Pulse Resp B/P B/P Pulse O2 O2 Flow FiO2 Mean Ox Delivery Rate 08/04 0825 81 93 08/04 0800 97.2 91 25 148/68 94 BIPAP 50% 08/04 0800 95 BIPAP 50% 08/04 0600 97.8 102 25 174/83 08/04 0543 104 96 08/04 0400 97.8 98 24 173/69 08/04 0400 96 BIPAP 50% 08/04 0245 106 96 08/04 0200 98.2 106 28 167/66 08/04 0054 109 97 08/04 0030 93 Nasal 40% Cannula 08/04 0000 98.2 110 34 158/74 08/04 0000 92 Nasal 40% Cannula 08/04 0000 98.2 110 34 136/80 92 Nasal 40% Cannula 08/03 2232 95 Nasal 40% Cannula 08/03 2200 97.8 106 30 158/79 08/04 1999 98.0 92 24 164/82 08/03 2000 94 Nasal 40% Cannula 08/03 2000 95 Nasal 40% Cannula 08/03 1700 94 Nasal 40% Cannula 08/03 1600 96.6 90 20 170/74 94 Nasal 4.0L Cannula 08/03 1600 94 Nasal 4.0L Cannula 08/03 1400 92 23 167/66 08/03 1313 Nasal 4.0L Cannula 08/03 1312 94 Nasal 4.0L Cannula 08/03 1200 96.6 85 23 140/80 03 1200 96.6 85 23 140/80 94 Nasal 4.0L Cannula Intake & Output 08/04 1600 08/04 0800 08/04 0000 Intake Total 483 588 Output Total 400 470 Balance 83 118 Intake, IV 483 588 Intake, Oral 0 Number 0 0 Bowel Movements Output, Urine 400 470 Patient 232 lb Weight Weight Bed scale Measurement Method Physical Exam Other Physical Findings: General Appearance elevated BMI Skin Chronic stasis skin changes in bilat LE. L >R LE erythema HEENT Atraumatic, sclera anicteric, mild erythema/swelling upper lip Cardiovascular S1 S2 present, no gallop/murmur Lungs BS diminished bases, b/l rhonchi Abdomen obese, soft, NT Neurological awake; moving all extremities Extremities severe edema LE's. Results Last 24 Hours of Lab Results: Laboratory Tests 08/04 08/04 08/04 0445 0110 0020 Blood Gas pH (7.35 - 7.45 PH) 7.38 pCO2 (35 - 45 TORR) 42 pO2 (80 - 100 TORR) 98 HCO3 (21 - 28 MEQ/L) 24 ABG O2 Sat (Measured) (>96.0 %) 97.0 P-50 (Temp Corrected) N Carboxyhemoglobin (1.5 - 5.0 %) 0.8 L O2 Concentration % .50 Respiration Rate (BPM) 24 O2 Delivery Method BIPAP Vent Mode ST Expiratory Pressure (CM H2O P) 4 Inspiratory Pressure (CM H2O P) 20 Chemistry Sodium (137 - 145 mmol/L) 144 Potassium (3.5 - 5.1 mmol/L) 3.9 Chloride (98 - 107 mmol/L) 105 Carbon Dioxide (22 - 30 mmol/L) 28 Anion Gap (5 - 16) 11 BUN (9 - 20 mg/dL) 69 H Creatinine (0.7 - 1.2 mg/dL) 2.2 H Estimated GFR (>60 ml/min) 29 L Glucose (65 - 99 mg/dL) 90 Calcium (8.4 - 10.2 mg/dL) 9.0 Phosphorus (2.5 - 4.5 mg/dL) 4.5 Magnesium (1.6 - 2.3 mg/dL) 1.9 Total Bilirubin (0.2 - 1.3 mg/dL) 1.5 H AST (17 - 59 U/L) 86 H ALT (21 - 72 U/L) 72 Albumin (3.5 - 5.0 g/dL) 2.3 L Coagulation APTT (25 - 37 SEC) 73 H Hematology CBC w Diff NO MAN DIFF REQ WBC (4.8 - 10.8 /CUMM) 10.0 RBC (4.70 - 6.10 /CUMM) 4.71 Hgb (14.0 - 18.0 G/DL) 15.1 Hct (42 - 52 %) 45.5 MCV (80.0 - 94.0 FL) 96.7 H MCH (27.0 - 31.0 PG) 31.9 H MCHC (33.0 - 37.0 G/DL) 33.0 RDW (11.5 - 14.5 %) 16.8 H Plt Count (130 - 400 /CUMM) 119 L MPV (7.4 - 10.4 FL) 8.1 Gran % (42.2 - 75.2 %) 90.1 H Lymphocytes % (20.5 - 51.1 %) 4.6 L Monocytes % (1.7 - 9.3 %) 5.3 Eosinophils % (0 - 5 %) 0 Basophils % (0.0 - 2.0 %) 0 Absolute Granulocytes (1.4 - 6.5 /CUMM) 9.0 H Absolute Lymphocytes (1.2 - 3.4 /CUMM) 0.5 L Absolute Monocytes (0.10 - 0.60 /CUMM) 0.5 Absolute Eosinophils (0.0 - 0.7 /CUMM) 0 Absolute Basophils (0.0 - 0.2 /CUMM) 0 Miscellaneous Phlebotomy Draw Site RIGHT RADIAL 08/03 08/03 1720 1130 Chemistry Lactic Acid (0.7 - 2.1 mmol/L) 2.1 Ammonia (9 - 30 umol/L) < 9 L Coagulation APTT (25 - 37 SEC) 58 H Last 24 Hours of Zackery Results: SPEC #: [id number] SWETA: 08/02/17 STATUS: RES RECD: 08/02/[address]: Archana Vergara SOURCE: URINE ROUT ENTR: 08/02/[address]: Patient Has No Primary Care SPDES: URINE FOLE ORDERED: URINE CULTURE COMMENT: TRIO Procedure Result > URINE CULTURE Preliminary 08/03/17 NO GROWTH AFTER 1 DAY Recent Imaging Studies: CXR 08/04 IMPRESSION: Likely small pleural effusions. Increasing bibasilar opacities which could represent atelectasis or pneumonia. DICTATED BY: Edson KOEHLER,Nehemiah DATE/TIME DICTATED:08/04/17133 PICKLE PROCESSOR:DHARMESH DATE/TIME TRANSCRIBED:08/04/17133 Assessment/Plan ID Impression: 72 yo male known with CHF, HTN, prvious syncopal episode admitted to the hospital on 08/02 with MSC and SOB. MSC; broad ddx,plan to rule out stroke (LV clot and PAF) awaits MRI brain (w/o contrast) (please call w/ results) Aspiration pneumonia; worsening CXR findings; likely ARELIS (BiPAP as needed) Mild leukocytosis/resolved L LE cellulitis Worsening RICHI Suggestion: 1. Trend CBC, BMP, lactic acid. Pulm toilet. Sputum cx. Cont empiric iv CTX/doxy D #2/5. MRSA surv cx pnd; worsening cellulitis L LE; add iv Vancomycin 1.5 gm x1 today; random level in am 3/4. 2. Hep B,C screening serology. HSV DNA PCR swab upper lip. 3. If febrile please call. 4. F/U pulm recom.
[2017-08-04 13:26] LABS: PTT 102 SEC (25-37)
--- NOTE | 2017-08-04 14:50 | PN- Nephrology ---
Assessment/Plan Nephrology Assessment: RICHI - Likely ischemic ATN in the setting of A fib with RVR/hypotension. History limited by obtundation although brother noted to have thought he had had poor PO intake. Work-up thus far neg for obstruction and serologies thus far neg. Should note that minimal proteinuria suggests against GN. Edema - Presumably from CHF. No evidence of liver disease based on CT imaging or LE DVT's given neg US. Does have a low albumin but only 0.5g of protein on a spot ratio. Suggestion: -Cont supportive treatment as you are - no specific additional recs at this time Please call [phone] with ?'s Subjective Subjective: SCr stable at 2.2 Has gotten 2.6L of IVF No hypotension On BIPAP Remains obtunded No new micro Complements pending 0.5g of protein on the spot ratio Hep B, C, HIV NR Objective Vital Signs and I&Os Vital Signs Date Time Temp Pulse Resp B/P B/P Pulse O2 O2 Flow FiO2 Mean Ox Delivery Rate 08/04 1326 101 95 08/04 1144 96 92 08/04 0825 81 93 08/04 0800 97.2 91 25 148/68 94 BIPAP 50% 08/04 0800 95 BIPAP 50% 08/04 0600 97.8 102 25 174/83 / 0543 104 96 / 0400 97.8 98 24 173/69 08/04 0400 96 BIPAP 50% 08/04 0245 106 96 / 0200 98.2 106 28 167/66 / 0054 109 97 / 0030 93 Nasal 40% Cannula 08/04 0000 98.2 110 34 158/74 / 0000 92 Nasal 40% Cannula 08/04 0000 98.2 110 34 136/80 92 Nasal 40% Cannula / 2232 95 Nasal 40% Cannula 08/03 2200 97.8 106 30 158/79 08/04 1999 98.0 92 24 164/82 08/04 1999 94 Nasal 40% Cannula 08/04 1999 95 Nasal 40% Cannula 08/03 1700 94 Nasal 40% Cannula 08/03 1600 96.6 90 20 170/74 94 Nasal 4.0L Cannula 08/04 1599 94 Nasal 4.0L Cannula Intake & Output 08/04 0400 08/03 04008/02 0400 Intake Total 445 753 3571 1140 Output Total 400 470 450 430 Balance 83 118 1609 710 Intake, IV 517 202 2941 1140 Intake, Oral 0 0 0 Number 0 0 0 0 Bowel Movements Output, Urine 400 470 450 430 Patient 232 lb 233 lb 246 lb 208 lb Weight Weight Bed scale Bed scale Bed scale Reported by Patient Measurement Method Physical Exam: Gen - obtunded, in 4 point restraint, ill appearing HEENT - +BIPAP CV - RRR, no m/r/g Chest - clear anteriorly, no w/r/r Abd - soft, NTND Ext - warm, 1+ edema Skin - multiple lesions/excoriations on legs with erythema, no jaundice Neuro - obtunded, unable to assess orientation Current Medications: Current Medications Sig/Richard Start time Last Medication Dose Route Stop Time Status Admin Acetaminophen 1,000 MG ONCE ONE 08/04 0615 DC 08/04 N/A 1 UNIT IV 08/04 0629 0608 Albuterol Sulfate 3 ML Q4P PRN 08/04 1330 AC 08/04 INH 1321 Albuterol Sulfate 3 ML ONCE ONE 08/04 0030 DC 08/04 INH 08/04 0031 0032 Aspirin 300 MG 0300 08/04 0300 AC 08/04 OH 0439 Azithromycin 500 MG DAILY@1900 08/03 1900 DC 08/03 Dextrose/Water 250 ML IV 2214 Ceftriaxone Sodium 2,000 MG DAILY@1900 08/03 1900 AC 08/03 IV 2216 Cyanocobalamin/ 1 BAG DAILY@1600 08/04 1600 AC Thiamine/Pyridoxine IV Dextrose/Water 1,000 ML Cyanocobalamin/ 1 BAG DAILY 08/03 1415 DC 08/03 Thiamine/Pyridoxine IV 1611 Dextrose/Water 1,000 ML Diltiazem HCl 125 MG Q12H 08/04 1115 AC Sodium Chloride 100 ML IV Diltiazem HCl 125 MG Q24H 08/02 1430 DC 08/03 Sodium Chloride 100 ML IV 1611 Doxycycline Hyclate 100 MG Q12H 08/04 1315 AC 08/04 Sodium Chloride 100 ML IV 1407 Doxycycline Hyclate 100 MG Q12H 08/04 1245 DC Dextrose/Water 100 ML IV Heparin Sodium 25,000 UNIT Q24H 08/02 1545 AC 08/04 (Porcine) IV 0902 Sodium Chloride 500 ML Nystatin 1 CYN BID PRN 08/03 0645 AC TOP Pantoprazole Sodium 40 MG DAILY 08/03 1000 AC 08/04 IV 0901 Thiamine HCl 100 MG Q8H 08/02 2330 AC 08/04 Sodium Chloride 50 ML IV 0644 Vancomycin HCl 1,500 MG ONCE ONE 08/04 1245 DC Dextrose/Water 250 ML IV 08/04 1344 Results Pertinent Lab Results: Laboratory Tests 08/04 08/04 08/04 1234 0445 0110 Blood Gas pH (7.35 - 7.45 PH) 7.38 pCO2 (35 - 45 TORR) 42 pO2 (80 - 100 TORR) 98 HCO3 (21 - 28 MEQ/L) 24 ABG O2 Sat (Measured) (>96.0 %) 97.0 P-50 (Temp Corrected) N Carboxyhemoglobin (1.5 - 5.0 %) 0.8 L O2 Concentration % .50 Respiration Rate (BPM) 24 O2 Delivery Method BIPAP Vent Mode ST Expiratory Pressure (CM H2O P) 4 Inspiratory Pressure (CM H2O P) 20 Chemistry Sodium (137 - 145 mmol/L) 144 Potassium (3.5 - 5.1 mmol/L) 3.9 Chloride (98 - 107 mmol/L) 105 Carbon Dioxide (22 - 30 mmol/L) 28 Anion Gap (5 - 16) 11 BUN (9 - 20 mg/dL) 69 H Creatinine (0.7 - 1.2 mg/dL) 2.2 H Estimated GFR (>60 ml/min) 29 L Glucose (65 - 99 mg/dL) 90 Calcium (8.4 - 10.2 mg/dL) 9.0 Phosphorus (2.5 - 4.5 mg/dL) 4.5 Magnesium (1.6 - 2.3 mg/dL) 1.9 Total Bilirubin (0.2 - 1.3 mg/dL) 1.5 H AST (17 - 59 U/L) 86 H ALT (21 - 72 U/L) 72 Albumin (3.5 - 5.0 g/dL) 2.3 L Coagulation APTT (25 - 37 SEC) 102 *H Hematology CBC w Diff NO MAN DIFF REQ WBC (4.8 - 10.8 /CUMM) 10.0 RBC (4.70 - 6.10 /CUMM) 4.71 Hgb (14.0 - 18.0 G/DL) 15.1 Hct (42 - 52 %) 45.5 MCV (80.0 - 94.0 FL) 96.7 H MCH (27.0 - 31.0 PG) 31.9 H MCHC (33.0 - 37.0 G/DL) 33.0 RDW (11.5 - 14.5 %) 16.8 H Plt Count (130 - 400 /CUMM) 119 L MPV (7.4 - 10.4 FL) 8.1 Gran % (42.2 - 75.2 %) 90.1 H Lymphocytes % (20.5 - 51.1 %) 4.6 L Monocytes % (1.7 - 9.3 %) 5.3 Eosinophils % (0 - 5 %) 0 Basophils % (0.0 - 2.0 %) 0 Absolute Granulocytes (1.4 - 6.5 /CUMM) 9.0 H Absolute Lymphocytes (1.2 - 3.4 /CUMM) 0.5 L Absolute Monocytes (0.10 - 0.60 /CUMM) 0.5 Absolute Eosinophils (0.0 - 0.7 /CUMM) 0 Absolute Basophils (0.0 - 0.2 /CUMM) 0 Miscellaneous Phlebotomy Draw Site RIGHT RADIAL 08/04 08/03 08/03 08/03 08/03 0020 1720 1130 0950 0950 Chemistry Lactic Acid (0.7 - 2.1 mmol/L) 2.1 Ammonia (9 - 30 umol/L) < 9 L Coagulation APTT (25 - 37 SEC) 73 H 58 H Miscellaneous Ref Lab Test Result Pending Toxicology Urine Opiates Screen (>2000 NG/ML) < 100 Methadone Screen (>300 NG/ML) < 40 Barbiturate Screen (>200 NG/ML) < 60 Ur Phencyclidine Scrn (>25 NG/ML) < 6.00 Amphetamines Screen (>1000 NG/ML) < 100 U Benzodiazepines Scrn (>200 NG/ML) < 85 Urine Cocaine Screen (>300 NG/ML) < 50 Urine Cannabis Screen (>50 NG/ML) < 5.00 Urines Ur Random Creatinine (mg/dL) 120.0 Ur Random Microalbumin (<1.7 mg/dl) 28.3 H U Random Total Protein (0 - 12 mg/dL) 67 H Ur Creatinine 24 Hour Cancelled Ur Total Protein 24 Hr Cancelled Protein/Creatinin Ratio (< 0.2) 0.5 H Protein/Creat Ratio 24h Cancelled U Cystine/Creat Ratio (mcg/mg) 235.83 U Protein Electrophores Cancelled Urine Albumin (%) Cancelled U Pqnjf-8-Glgxazah Cancelled U Wznmb-4-Wbrnhrgv Cancelled U Beta Globulin Cancelled U Gamma Globulin Cancelled U Abnormal Prot Band 1 Cancelled U Abnormal Prot Band 2 Cancelled U Abnormal Prot Band 3 Cancelled 08/03 08/03 08/03 0827 0533 0546 Chemistry Sodium (137 - 145 mmol/L) 141 Potassium (3.5 - 5.1 mmol/L) 4.1 Chloride (98 - 107 mmol/L) 103 Carbon Dioxide (22 - 30 mmol/L) 28 Anion Gap (5 - 16) 10 BUN (9 - 20 mg/dL) 62 H Creatinine (0.7 - 1.2 mg/dL) 2.3 H Estimated GFR (>60 ml/min) 28 L Glucose (65 - 99 mg/dL) 104 H Lactic Acid (0.7 - 2.1 mmol/L) 2.2 H 2.3 H Calcium (8.4 - 10.2 mg/dL) 9.2 Phosphorus (2.5 - 4.5 mg/dL) 5.7 H Magnesium (1.6 - 2.3 mg/dL) 2.0 Total Bilirubin (0.2 - 1.3 mg/dL) 2.1 H AST (17 - 59 U/L) 95 H ALT (21 - 72 U/L) 70 Troponin I (<0.11 ng/ml) 1.74 *H Albumin (3.5 - 5.0 g/dL) 2.3 L Vitamin B12 (239 - 931 pg/mL) > 1000 H Coagulation PT (9.4 - 12.5 SEC) 22.2 H INR (0.90 - 1.17) 2.13 H APTT (25 - 37 SEC) 68 H Hematology CBC w Diff MAN DIFF ORDERED WBC (4.8 - 10.8 /CUMM) 12.1 H RBC (4.70 - 6.10 /CUMM) 4.87 Hgb (14.0 - 18.0 G/DL) 15.6 Hct (42 - 52 %) 47.1 MCV (80.0 - 94.0 FL) 96.7 H MCH (27.0 - 31.0 PG) 31.9 H MCHC (33.0 - 37.0 G/DL) 33.0 RDW (11.5 - 14.5 %) 16.8 H Plt Count (130 - 400 /CUMM) 137 MPV (7.4 - 10.4 FL) 8.0 Gran % (42.2 - 75.2 %) 87.7 H Lymphocytes % (20.5 - 51.1 %) 6.2 L Monocytes % (1.7 - 9.3 %) 6.0 Eosinophils % (0 - 5 %) 0 Basophils % (0.0 - 2.0 %) 0.1 Absolute Granulocytes (1.4 - 6.5 /CUMM) 10.6 H Segmented Neutrophils (42.2 - 75.2 %) 95 H Absolute Lymphocytes (1.2 - 3.4 /CUMM) 0.7 L Lymphocytes (20.5 - 51.1 %) 3 L Monocytes (1.7 - 9.3 %) 2 Absolute Monocytes (0.10 - 0.60 /CUMM) 0.7 H Absolute Eosinophils (0.0 - 0.7 /CUMM) 0 Absolute Basophils (0.0 - 0.2 /CUMM) 0 Platelet Estimate (ADEQUATE) ADEQUATE Polychromasia 1+ Poikilocytosis 1+ Ovalocytes 1+ [place] Cells FEW ESR Westergren (0 - 10 MM) 1 Immunology LIYAH Titer Pending Anti-Nuclear Antibody Pending Other Body Source Fld Total RBCs Counted (%) 100 Serology Hepatitis A IgM Ab (NONREACTIVE) NONREACTIVE Hep Bs Antigen (NONREACTIVE) NONREACTIVE Hep B Core IgM Ab Conf (NONREACTIVE) NONREACTIVE Hepatitis C Antibody (NONREACTIVE) NONREACTIVE HIV 1&2 Ab Western Blot (NONREACTIVE) NONREACTIVE Toxicology Random Vancomycin (ug/ml) 13.0 Salicylates (0 - 20.0 mg/dL) < 1.0 Acetaminophen (10.0 - 30.0 ug/mL) < 10.0 L 08/03 08/03 08/02 08/02 08/02 0500 0150 2222 1836 1810 Blood Gas pH (7.35 - 7.45 PH) 7.41 pCO2 (35 - 45 TORR) 33 L pO2 (80 - 100 TORR) 92 HCO3 (21 - 28 MEQ/L) 21 ABG O2 Sat (Measured) (>96.0 %) 96.0 P-50 (Temp Corrected) N Carboxyhemoglobin (1.5 - 5.0 %) 0.2 L O2 Concentration % 4L Temperature (97.0 - 100.0 FARH) 97.0 O2 Delivery Method NC Chemistry Lactic Acid (0.7 - 2.1 mmol/L) 2.5 H 3.2 H 4.3 H Troponin I (<0.11 ng/ml) 1.98 *H Prot Electrophoresis Cancelled Total Protein (PEP) Cancelled Albumin % (PEP) Cancelled Jdvpx-4-Keqkrfpdz Cancelled Nocbh-4-Yrvrdasui Cancelled Grei-6-Anrrrrus Cancelled Ygwy-5-Thtsopnm Cancelled Gamma Globulins Cancelled Abnorm Protein Band 1 Cancelled Abnorm Protein Band 2 Cancelled Abnorm Protein Band 3 Cancelled Coagulation APTT (25 - 37 SEC) > 120 *H Immunology Complement C3 Cancelled Complement C4 Cancelled Miscellaneous Phlebotomy Draw Site RIGHT RADIAL 08/02 08/02 08/02 1635 1635 1517 Chemistry Lactic Acid (0.7 - 2.1 mmol/L) 3.3 H Coagulation PT (9.4 - 12.5 SEC) 21.7 H INR (0.90 - 1.17) 2.08 H APTT (25 - 37 SEC) 32 D-Dimer High Sensitivty (0 - 243 ng/ml) 3108 H Toxicology Urine Opiates Screen (>2000 NG/ML) < 100 Methadone Screen (>300 NG/ML) < 40 Barbiturate Screen (>200 NG/ML) < 60 Ur Phencyclidine Scrn (>25 NG/ML) < 6.00 Amphetamines Screen (>1000 NG/ML) < 100 U Benzodiazepines Scrn (>200 NG/ML) < 85 Urine Cocaine Screen (>300 NG/ML) < 50 Urine Cannabis Screen (>50 NG/ML) < 5.00 Urines Urine Color (YEL,AMB,STR) YEL Urine Clarity (CLEAR) HAZY H Urine pH (5.0 - 8.0) 6.0 Ur Specific [place] (1.001 - 1.035) 1.025 Urine Protein (NEG,<30 MG/DL) 100 H Urine Ketones (NEG) TRACE H Urine Nitrite (NEG) NEG Urine Bilirubin (NEG) NEG@ICTO Urine Urobilinogen (0.1 - 1.0 EU/dl) 2.0 H Ur Leukocyte Esterase (NEG) NEG Ur Microscopic SEDIMENT EXAMINED Urine RBC (0 - 5 /HPF) 10-15 H Urine WBC (0 - 2 /HPF) 3-5 H Ur Epithelial Cells (NONE,FEW) RARE Urine Bacteria (NEG/NONE) RARE H Urine Hemoglobin (NEG) LARGE H Ur Random Creatinine (mg/dL) 173.2 Ur Random Sodium (30 - 90 mmol/L) 8 L Ur Random Potassium (mmol/L) 36.4 Fraction Sodium Excret (<1% %) 0.1 Urine Glucose (N MG/DL) NEG 08/02 08/02 1450 1423 Chemistry Sodium (137 - 145 mmol/L) 141 Potassium (3.5 - 5.1 mmol/L) 3.9 Chloride (98 - 107 mmol/L) 99 Carbon Dioxide (22 - 30 mmol/L) 27 Anion Gap (5 - 16) 15 BUN (9 - 20 mg/dL) 55 H Creatinine (0.7 - 1.2 mg/dL) 1.8 H Estimated GFR (>60 ml/min) 37 L BUN/Creatinine Ratio (7 - 25 %) 30.6 H Glucose (65 - 99 mg/dL) 76 Hemoglobin A1c (4.2 - 5.8 %) 5.9 H Calcium (8.4 - 10.2 mg/dL) 9.9 Total Bilirubin (0.2 - 1.3 mg/dL) 3.1 H Direct Bilirubin (< 0.4 mg/dL) 1.1 H AST (17 - 59 U/L) 119 H ALT (21 - 72 U/L) 76 H Alkaline Phosphatase (< 127 U/L) 98 Creatine Kinase (55 - 170 U/L) 395 H Troponin I (<0.11 ng/ml) 1.71 *H Iky-O-Lekknpgzzty Pept (<125 pg/mL) 4650 H Total Protein (6.3 - 8.2 g/dL) 6.1 L Albumin (3.5 - 5.0 g/dL) 3.0 L Globulin (1.9 - 4.2 gm/dL) 3.1 Albumin/Globulin Ratio (1.1 - 2.2 %) 1.0 L Free T4 (0.78 - 2.44 ng/dL) 1.94 Total T3 (0.97 - 1.69 ng/mL) 0.61 L TSH &T3 &Free T4 Intrp (0.27 - 4.20 uIU/mL) 1.260 Hematology CBC w Diff NO MAN DIFF REQ WBC (4.8 - 10.8 /CUMM) 10.7 RBC (4.70 - 6.10 /CUMM) 5.48 Hgb (14.0 - 18.0 G/DL) 17.5 Hct (42 - 52 %) 52.2 H MCV (80.0 - 94.0 FL) 95.3 H MCH (27.0 - 31.0 PG) 31.9 H MCHC (33.0 - 37.0 G/DL) 33.4 RDW (11.5 - 14.5 %) 16.3 H Plt Count (130 - 400 /CUMM) 151 MPV (7.4 - 10.4 FL) 8.7 Gran % (42.2 - 75.2 %) 88.5 H Lymphocytes % (20.5 - 51.1 %) 5.5 L Monocytes % (1.7 - 9.3 %) 6.0 Eosinophils % (0 - 5 %) 0 Basophils % (0.0 - 2.0 %) 0 Absolute Granulocytes (1.4 - 6.5 /CUMM) 9.5 H Absolute Lymphocytes (1.2 - 3.4 /CUMM) 0.6 L Absolute Monocytes (0.10 - 0.60 /CUMM) 0.6 Absolute Eosinophils (0.0 - 0.7 /CUMM) 0 Absolute Basophils (0.0 - 0.2 /CUMM) 0 Miscellaneous Ref Lab Test Result Cancelled Toxicology Serum Alcohol (<10 MG/DL) < 10.0 Imaging/Other Studies: EXAM TYPE: RAD - XRY-PORTABLE CHEST XRAY EXAMINATION: XR PORTABLE CHEST CLINICAL INFORMATION: Dyspnea on BiPAP COMPARISON: 08/02/2017 TECHNIQUE: Portable frontal view of the chest was obtained. FINDINGS: Cardiac leads overlie the chest. The lungs are well expanded. There are increasing bibasilar opacities. Likely small pleural effusions. No pneumothorax. The cardiomediastinal silhouette is unchanged. IMPRESSION: Likely small pleural effusions. Increasing bibasilar opacities which could represent atelectasis or pneumonia.
--- NOTE | 2017-08-04 15:06 | PN- Cardiology ---
See Addendum Subjective Subjective: The patient continues to be obtunded. He is on BiPAP. quality assurance monitor final reveals sinus rhythm with frequent PACs and PVCs. Objective Vital Signs and I&Os Vital Signs Date Time Temp Pulse Resp B/P B/P Pulse O2 O2 Flow FiO2 Mean Ox Delivery Rate 08/04 1326 101 95 08/04 1200 97.7 92 48 150/76 96 Nasal 75% Cannula 08/04 1144 96 92 08/04 0825 81 93 08/04 0800 97.2 91 25 148/68 94 BIPAP 50% 08/04 0800 95 BIPAP 50% 08/04 0600 97.8 102 25 174/83 08/04 0543 104 96 08/04 0400 97.8 98 24 173/69 08/04 0400 96 BIPAP 50% 08/04 0245 106 96 08/04 0200 98.2 106 28 167/66 08/04 0054 109 97 08/04 0030 93 Nasal 40% Cannula 08/04 0000 98.2 110 34 158/74 08/04 0000 92 Nasal 40% Cannula 08/04 0000 98.2 110 34 136/80 92 Nasal 40% Cannula 08/03 2232 95 Nasal 40% Cannula 08/03 2200 97.8 106 30 158/79 08/04 1999 98.0 92 24 164/82 08/03 2000 94 Nasal 40% Cannula 08/03 2000 95 Nasal 40% Cannula 08/03 1700 94 Nasal 40% Cannula 08/03 1600 96.6 90 20 170/74 94 Nasal 4.0L Cannula 08/03 1600 94 Nasal 4.0L Cannula Intake & Output 08/04 1600 08/04 0800 03 0000 08/03 1600 02 0800 08/03 0000 Intake Total 733.3 483 105 306 7591 1140 Output Total 550 400 470 350 100 430 Balance 183.3 83 118 -141 1750 710 Intake, IV 733.3 483 452 894 3234 1140 Intake, Oral 0 0 0 Number 0 0 0 0 Bowel Movements Output, Urine 550 400 470 350 100 430 Patient 232 lb 233 lb 246 lb Weight Weight Bed scale Bed scale Bed scale Measurement Method Physical Exam: General: WD/obese male in NAD; obtunded HEENT: NC/AT, PERRl, EOMI Neck: no JVD, no carotid bruit Heart: RRR, no murmur Lungs: clear bilaterally Abdomen: soft, obese, NT, +ve bowel sounds Extremities: 3+ bilateral leg edema with weeping legs Current Medications: Current Medications Sig/Richard Start time Last Medication Dose Route Stop Time Status Admin Acetaminophen 1,000 MG ONCE ONE 08/04 0615 DC 08/04 N/A 1 UNIT IV 08/04 0629 0608 Albuterol Sulfate 3 ML Q4P PRN 08/04 1330 AC 08/04 INH 1321 Albuterol Sulfate 3 ML ONCE ONE 08/04 0030 DC 08/04 INH 08/04 0031 0032 Aspirin 300 MG 0300 08/04 0300 AC 08/04 CO 0439 Azithromycin 500 MG DAILY@1900 08/03 1900 DC 08/03 Dextrose/Water 250 ML IV 2214 Ceftriaxone Sodium 2,000 MG DAILY@1900 08/03 1900 AC 08/03 IV 2216 Cyanocobalamin/ 1 BAG DAILY@1600 08/04 1600 AC Thiamine/Pyridoxine IV Dextrose/Water 1,000 ML Cyanocobalamin/ 1 BAG DAILY 08/03 1415 DC 08/03 Thiamine/Pyridoxine IV 1611 Dextrose/Water 1,000 ML Dextrose/Lactated 1,000 ML Q13H 08/04 1500 UNVr Ringer's IV Diltiazem HCl 125 MG Q10H 08/05 0100 AC Sodium Chloride 100 ML IV Diltiazem HCl 125 MG Q12H 08/04 1115 AC 08/04 Sodium Chloride 100 ML IV 08/05 0059 1447 Diltiazem HCl 125 MG Q24H 08/02 1430 DC 08/03 Sodium Chloride 100 ML IV 1611 Doxycycline Hyclate 100 MG Q12H 08/04 1315 AC 08/04 Sodium Chloride 100 ML IV 1407 Doxycycline Hyclate 100 MG Q12H 08/04 1245 DC Dextrose/Water 100 ML IV Heparin Sodium 25,000 UNIT Q24H / 1545 AC 08/04 (Porcine) IV 0902 Sodium Chloride 500 ML Nystatin 1 CYN BID PRN 08/03 0645 AC TOP Pantoprazole Sodium 40 MG DAILY 08/03 1000 AC 08/04 IV 0901 Thiamine HCl 100 MG Q8H 08/02 2330 AC 08/04 Sodium Chloride 50 ML IV 0644 Vancomycin HCl 1,500 MG ONCE ONE 08/04 1245 DC Dextrose/Water 250 ML IV 08/04 1344 Results Last 48 Hrs of Labs/Mics: Laboratory Tests 08/04/17 1234: APTT 102 *H 08/04/17 0445: Anion Gap 11, Estimated GFR 29 L, Glucose 90, Calcium 9.0, Phosphorus 4.5, Magnesium 1.9, Total Bilirubin 1.5 H, AST 86 H, ALT 72, Albumin 2.3 L, CBC w Diff NO MAN DIFF REQ, RBC 4.71, MCV 96.7 H, MCH 31.9 H, MCHC 33.0, RDW 16.8 H , MPV 8.1, Gran % 90.1 H, Lymphocytes % 4.6 L, Monocytes % 5.3, Eosinophils % 0, Basophils % 0, Absolute Granulocytes 9.0 H, Absolute Lymphocytes 0.5 L, Absolute Monocytes 0.5, Absolute Eosinophils 0, Absolute Basophils 0 08/04/17 0110: pH 7.38, pCO2 42, pO2 98, HCO3 24, ABG O2 Sat (Measured) 97.0, P-50 (Temp Corrected) N, Carboxyhemoglobin 0.8 L, O2 Concentration % .50, Respiration Rate 24, O2 Delivery Method BIPAP, Vent Mode ST, Expiratory Pressure 4, Inspiratory Pressure 20, Phlebotomy Draw Site RIGHT RADIAL 08/04/17 0020: APTT 73 H 08/03/17 1720: Ammonia < 9 L, APTT 58 H 08/03/17 1130: Lactic Acid 2.1 08/03/17 0950: Ur Random Creatinine 120.0, Ur Random Microalbumin 28.3 H, U Random Total Protein 67 H, Protein/Creatinin Ratio 0.5 H, U Cystine/Creat Ratio 235.83 08/03/17 0950: Ref Lab Test Result Pending, Urine Opiates Screen < 100, Methadone Screen < 40, Barbiturate Screen < 60, Ur Phencyclidine Scrn < 6.00, Amphetamines Screen < 100 , U Benzodiazepines Scrn < 85, Urine Cocaine Screen < 50, Urine Cannabis Screen < 5.00, Ur Creatinine 24 Hour Cancelled, Ur Total Protein 24 Hr Cancelled, Protein/Creat Ratio 24h Cancelled, U Protein Electrophores Cancelled, Urine Albumin (%) Cancelled, U Zjomt-8-Rsijjuax Cancelled, U Zvahi-4-Evctqmmy Cancelled, U Beta Globulin Cancelled, U Gamma Globulin Cancelled, U Abnormal Prot Band 1 Cancelled, U Abnormal Prot Band 2 Cancelled, U Abnormal Prot Band 3 Cancelled 08/03/17 0838: Lactic Acid 2.2 H 08/03/17 0525: Lactic Acid 2.3 H 08/03/17 0525: Anion Gap 10, Estimated GFR 28 L, Glucose 104 H, Calcium 9.2, Phosphorus 5.7 H, Magnesium 2.0, Total Bilirubin 2.1 H, AST 95 H, ALT 70, Troponin I 1.74 *H, Albumin 2.3 L, Vitamin B12 > 1000 H, PT 22.2 H, INR 2.13 H, APTT 68 H, CBC w Diff MAN DIFF ORDERED, RBC 4.87, MCV 96.7 H, MCH 31.9 H, MCHC 33.0, RDW 16.8 H, MPV 8.0, Gran % 87.7 H, Lymphocytes % 6.2 L, Monocytes % 6.0, Eosinophils % 0, Basophils % 0.1, Absolute Granulocytes 10.6 H, Segmented Neutrophils 95 H , Absolute Lymphocytes 0.7 L, Lymphocytes 3 L, Monocytes 2, Absolute Monocytes 0.7 H, Absolute Eosinophils 0, Absolute Basophils 0, Platelet Estimate ADEQUATE , Polychromasia 1+, Poikilocytosis 1+, Ovalocytes 1+, [place] Cells FEW, ESR Westergren 1, LIYAH Titer Pending, Anti-Nuclear Antibody Pending, Fld Total RBCs Counted 100, Hepatitis A IgM Ab NONREACTIVE, Hep Bs Antigen NONREACTIVE, Hep B Core IgM Ab Conf NONREACTIVE, Hepatitis C Antibody NONREACTIVE, HIV 1&2 Ab Western Blot NONREACTIVE, Random Vancomycin 13.0, Salicylates < 1.0, Acetaminophen < 10.0 L 08/03/17 0500: Prot Electrophoresis Cancelled, Total Protein (PEP) Cancelled, Albumin % (PEP) Cancelled, Gfaiw-3-Rkvrgbmeu Cancelled, Lgiss-9-Uuvrzxcdw Cancelled, Beta-1- Globulin Cancelled, Hhbn-5-Vgcvfcbw Cancelled, Gamma Globulins Cancelled, Abnorm Protein Band 1 Cancelled, Abnorm Protein Band 2 Cancelled, Abnorm Protein Band 3 Cancelled, Complement C3 Cancelled, Complement C4 Cancelled 08/03/17 0150: Lactic Acid 2.5 H 08/02/17 2222: Lactic Acid 3.2 H, Troponin I 1.98 *H, APTT > 120 *H 08/02/17 1836: Lactic Acid 4.3 H 08/02/17 1810: pH 7.41, pCO2 33 L, pO2 92, HCO3 21, ABG O2 Sat (Measured) 96.0, P-50 (Temp Corrected) N, Carboxyhemoglobin 0.2 L, O2 Concentration % 4L, Temperature 97.0, O2 Delivery Method NC, Phlebotomy Draw Site RIGHT RADIAL 08/02/17 1635: Urine Color YEL, Urine Clarity HAZY H, Urine pH 6.0, Ur Specific [place] 1.025, Urine Protein 100 H, Urine Ketones TRACE H, Urine Nitrite NEG, Urine Bilirubin NEG@ICTO, Urine Urobilinogen 2.0 H, Ur Leukocyte Esterase NEG, Ur Microscopic SEDIMENT EXAMINED, Urine RBC 10-15 H, Urine WBC 3-5 H, Ur Epithelial Cells RARE, Urine Bacteria RARE H, Urine Hemoglobin LARGE H, Urine Glucose NEG 08/02/17 1635: Urine Opiates Screen < 100, Methadone Screen < 40, Barbiturate Screen < 60, Ur Phencyclidine Scrn < 6.00, Amphetamines Screen < 100, U Benzodiazepines Scrn < 85, Urine Cocaine Screen < 50, Urine Cannabis Screen < 5.00, Ur Random Creatinine 173.2, Ur Random Sodium 8 L, Ur Random Potassium 36.4, Fraction Sodium Excret 0.1 08/02/17 1517: Lactic Acid 3.3 H, PT 21.7 H, INR 2.08 H, APTT 32, D-Dimer High Sensitivty 3108 H Microbiology 08/03 2239 URINE ROUT: Legionella Antigen - COMP 08/03 2239 URINE ROUT: Streptococcus pneumoniae Antigen (M - COMP 08/02 2129 UPPER RESP: Surveillance Culture - COMP 08/02 2129 GI: Surveillance Culture - COMP 08/03 2047 NASOPHARYN: Influenza Virus A & B Rapid Smear - COMP 08/02 1634 URINE ROUT: Urine Culture - COMP Recent Imaging Studies: Chest x-ray: Likely small pleural effusions. Increasing bibasilar opacities which could represent atelectasis or pneumonia. Assessment/Plan Assessment/Plan Assessment: 1. Change in mental status, uncertain 2. Positive troponin, suggestive of type II [place] 3. Aspiration pneumonia 4. Paroxysmal A-fib 5. Frequent premature atrial contractions and premature ventricular contraction 6. LVEF 50% Plan: * Continue diltiazem drip while unable to take p.o. medications * Antibiotics as per the medical service * Check basic metabolic profile daily * Would hold off for now on diuretic therapy given evidence of acute kidney injury Continue telemetry? Yes
[2017-08-04 21:14] LABS: PTT 48 SEC (25-37)
[2017-08-05] VITALS (11 sets, daily range): BP systolic 103–162; BP diastolic 62–88
[2017-08-05 05:53] LABS: ABSOLUTE BASOPHIL COUNT 0 /CUMM (0.0-0.2); ABSOLUTE EOSINOPHIL COUNT 0 /CUMM (0.0-0.7); ABSOLUTE GRANULOCYTE CT 7.1 /CUMM (1.4-6.5); ABSOLUTE LYMPH COUNT 0.4 /CUMM (1.2-3.4); ABSOLUTE MONOCYTE COUNT 0.4 /CUMM (0.10-0.60); BASOPHIL % 0.1 % (0.0-2.0); EOSINOPHIL % 0.2 % (0-5); HEMATOCRIT 44.8 % (42-52); MEAN CORPUSCULAR HGB 31.9 PG (27.0-31.0); MEAN CORPUSCULAR HGB CONC 33.3 G/DL (33.0-37.0); MEAN CORPUSCULAR VOLUME 95.7 FL (80.0-94.0); PLATELET COUNT 109 /CUMM (130-400); RBC DISTRIBUTION WIDTH 17.2 % (11.5-14.5); RED BLOOD CELL CT 4.68 /CUMM (4.70-6.10)
[2017-08-05 05:59] LABS: PT 17.7 SEC (9.4-12.5); PTT 59 SEC (25-37)
--- NOTE | 2017-08-05 06:47 | Event Note ---
Event Note Event Note: S: Patient started to have sinus tachycardia up to 145 bpm, Asymptomatic B: Patient has history of atrial fibrillation that was cardioverted to sinus rhythm, started on Cardizem drip 12.5 and heparin drip, echocardiogram positive for LV apical thrombus vs mass A: Patient is asymptomatic, remain on BiPAP satting 95%, blood pressure 150/90 R: Cardizem drip was elevated to 15, patient continue to be on tachycardia sinus 145 bpm for 10 minutes, was given 1 push of Cardizem 5 mg, for 10 - [address] 145-147 bpm. ICU bundle was sent. EKG showed junctional tachycardia with rate 144. Spoke with Dr. Bocanegra the helicopter pilot, will increase Cardizem drip to 17.5 and give dose of metoprolol IV 5 mg push and evaluate. Patient continued to be the same. Spoke with parts salvager Dr. Gray who advised to monitor for next 20-30 minutes and then evaluate if needs can give another dose of metoprolo 5 mg. Patient maintained blood pressure 125/70, second metoprolol dose was given and tachycardia broke to HR 90-100 bpm however EKG showed atrial flutter. Spoke with with Dr. Gray again advised to monitor the patient for now. Magnesium was repleted. Nocturnal is made aware. Discussed with the nurse. We'll continue to follow
--- NOTE | 2017-08-05 09:35 | PN- Resident CRCU ---
Peter KOEHLER,Jeffry 08/05/17 0934: Subjective HPI/CRCU Issues: AMS AFIB RVR S/P DC Apical thrombus on heparin Transamanitis 96.6-98.2/78-140/22-30/(155/75)-(174/74) BIPAP I 20 E 4 RR 28 FIO2 50 Total In 6370/ Total Out 3190 Previous day 1280/1220 24 Hour Events: Overnight pt had rapid narrow complex tachycardia up to 140s. His mental status has remained hte same. He is still not interacting with the environment but still spontaneously moving all limbs. He is on bipap. Objective Vital Signs & I&O Last 8 Hrs of Vitals and I&O: -- Exam General Appearance: well developed/nourished, no apparent distress, mild distress, on bipap Head: atraumatic Ears, Nose, Throat: normal ENT inspection Neck: supple Respiratory: crackles present. Cardiovascular: tachycardic and irregular Current Medications: Current Medications Sig/Richard Start time Last Medication Dose Route Stop Time Status Admin Albuterol Sulfate 3 ML Q4P PRN 03 1330 AC 03/04 INH 0825 Aspirin 300 MG 0300 08/04 0300 AC 03/04 NH 0426 Ceftriaxone Sodium 2,000 MG DAILY@1900 03/02 1900 AC 03/ IV 1804 Cyanocobalamin/ 1 BAG DAILY@1600 / 1600 AC 03/ Thiamine/Pyridoxine IV 1532 Dextrose/Water 1,000 ML Dextrose/Lactated 1,000 ML Q13H 08/04 1500 AC 03/ Ringer's IV 0544 Diltiazem HCl 125 MG Q8H 08/05 0845 r / Sodium Chloride 100 ML IV 1805 Diltiazem HCl 5 MG ONCE ONE 08/05 0530 DC / IV PUSH / 0531 0541 Diltiazem HCl 125 MG Q10H / 0100 DC 03/ Sodium Chloride 100 ML IV 0219 Diltiazem HCl 125 MG Q12H 08/04 1115 DC 08/04 Sodium Chloride 100 ML IV / 0059 2300 Doxycycline Hyclate 100 MG Q12H 08/04 1315 AC / Sodium Chloride 100 ML IV 1248 Heparin Sodium 5,000 UNIT ONE ONE 08/05 1914 DC 03/04 (Porcine) IV 08/05 1916 1941 Heparin Sodium 3,201 UNIT ONCE ONE 08/05 0630 DC 08/05 (Porcine) IV 08/05 0631 0721 Heparin Sodium 3,201 UNIT BOLUS ONE 08/04 2330 DC 08/04 (Porcine) IV 08/04 2331 2330 Heparin Sodium 25,000 UNIT Q24H / 1545 AC 08/05 (Porcine) IV 1531 Sodium Chloride 500 ML Magnesium Sulfate 1 GM ONCE ONE 08/04 2130 DC 08/04 Dextrose/Water 100 ML IV 08/05 0129 2128 Metoprolol Tartrate 5 MG Q4 08/05 1800 DC IV Metoprolol Tartrate 5 MG Q4 08/05 1515 r 08/05 IV 2144 Metoprolol Tartrate 5 MG ONCE ONE 08/05 0645 DC 08/05 IV 08/05 0646 0649 Metoprolol Tartrate 5 MG ONCE ONE 08/05 0600 DC 08/05 IV 08/05 0601 0603 Nystatin 1 CYN BID PRN 08/03 0645 AC TOP Pantoprazole Sodium 40 MG DAILY 08/03 1000 AC 08/05 IV 1019 Potassium Chloride 10 MEQ Q1H 08/05 0700 DC 08/05 IV 08/05 0901 1020 Thiamine HCl 100 MG Q8H 08/02 2330 DC 08/04 Sodium Chloride 50 ML IV 2335 Impression/Plan Impression/Problem List Impression: This is a 72 yo male with PMH of CHF, HTN, prev hx of syncope who comes in for CC AMS after being found down for unknown duration. He was found to be in a.fib RVR up to 199, he was confused and agitated. In ED multiple pushes of Lopressor and cardizem drip failed to adequately control his HR and he became hypotensive with systolic in 80s and even more confused. After cardiology evaluation decision was made to cardiovert pt for hemodynamic instability. First cardioversion with 50 J unsuccessful, second cardioversion with 70 J successful and pt went into NSR with rate 80-90s. Overall, this is pt with presumed new onset Afib with RVR, decompensated heart failure and AMS. Unsure if the afib is secondar to heart failure or possible infectious source. He also has several sources of infection, was hemodynamically unstable and as such empirically treated for sepsis. PLAN: AMS: Etiology of AMS remains elusive with DDX metabolic encephalopathy, primary neurologic event such as bleed given elevated INR and fall, or medication/drugs. His CT head x 2 negative for infarction or bleed. Carotid dopplers negative. Cervical spine ct negative * Neuro check * NPO * Appreciate neuro recs * EEG on Sunday * Will attempt MRI on sunday * Avoid all sedating medication Narrow Complex tachycardia: S/P synch cardioversion. Pt went back into what looked initially like sinus tach then a.flutter this AM. HR up to 140. Spoke with underwriting analyst and have scheduled Lopressor in addition to Cardizem drip. On admission EKG showed rate 190, irregularly irregular rhythm, evidence of RBBB and L fascicular block. TFT WNL. * Monitor on tele * Heparin drip * Con't Cardizem drip * Lopressor 5mg q4 scheduled Elevated Troponin: Resolved. First trop 1.71, then peaked at 1.98. EKG on admission showed a.fib RVR. THought to be secondary to demand due to tachycardia and less likely plaque rupture. * monitor EKG/Trop until peak * Echo * ASA 300 NH * On heparin drip CHF: ECHO- Low normal EF of 50% with inferoapical and apical hypokinesis. Large apical thrombus. Moderate left ventricular hypertrophy. Moderate left atrial enlargement. Mild mitral regurgitation. Mild tricuspid regurgitation. Mild pulmonary hypertension. Small pericardial effusion. Pt has significant LE edema, and cxr with evidence of volume overload. BNP 4650, no previous value. * Beta dick scheduled as above * Holding Lisinopril for hypotension * Appreciate cardio recs * Strict I/O * Eason placed Chronic vs Acute Renal Failure: Cr 1.8 with BUN 61 today. Historically Cr between 1.1-2.3. Unsure of his baseline. * Cont monitor * avoid nepro toxins * Renal consult Hypoxic respiratory failure: Today on Bipap. CXR with evidence of volume overload and ? bibasliar opacity * ABG * Con't abx * Low threshold to intubate Transamanitis: Pt has improving transamanitis but also had elevated t.bili, low plt and elevated INR. Not on AC. Pt has unknown hx etoh consumption. DDX: etoh, drug induced, and hepatic congestion. CAT scan not suggestive of hepatic cirrhosis.UTOX negative. He recieved Hi-dose thiamine q8 for 3 doses * CIWA protocol * Con't monitor LFT * Consider RUQ US Lactic acidosis: RESOLVED. FC Heparin NPO Problem List: 1. Hypotension 2. Elevated troponin 3. Rapid atrial fibrillation Pain Ratin Tomorrow's Labs & Rationales: ICU CBC Plan DVT/Prophylaxis: pharmacological Salas Contreras MD 08/05/17 1014: Attending MD Review Statement Attending Sign Off Attending Cosign Statement: I have: examined this patient, reviewed avalbl EMR data, personally reviewd images, discussd w/resident/PA/SHELLF[employer] FARMING SUPERVISOR, discussed mgmt plan w/tate, discussed mgmt plan w/CM, discussed mgmt plan w/pt, agreed w/resident/PA/SHELL[employer] FARMING SUPERVISOR, amended to note. Other Findings: ISalas M.D. have examined this patient, reviewed available EMR data, personally reviewed images, discussed with resident/PA/SHELLF[employer] FARMING SUPERVISOR, discussed management plan with housestaff and nursing staff, discussed managment plan all of healthcare providers, discussed management plan with patient and/or family, agreed with resident/PA/SHELLF[employer] FARMING SUPERVISOR. The past history and parts of the chart have been autopopulated. Impression 72 year old man * ams, likley ativan induced, less likely infectious cause * type 2 nstemi * ckd * hypoxemic respiratory failure, likely aspiration pneumonia * narrow complex tachycardia - unclear if there is a possibility of PE Plan -CXR today -cont heparin gtt, LE dopplers were negative -cont rate control - currently on cardizem gtt -f/u cardiology, neurology, ID, vascular surgery -cont empiric abx - ceftriaxone, doxycycline -f/u all cx -f/u EEG, unable to be still for MRI, given circumstances for MRI cooperation will monitor DVT prophylaxis at all times TTS 35 min
[2017-08-05 12:26] LABS: PTT 102 SEC (25-37)
--- NOTE | 2017-08-05 13:31 | PN- Infect Dx ---
Subjective Subjective: No fever; MSC; requiring BiPAP. Review of Systems Comments: 12 points reviewed as noted, otherwise negative. Objective Last 24 Hrs of Vital Signs/I&O Vital Signs Date Time Temp Pulse Resp B/P B/P Pulse O2 O2 Flow FiO2 Mean Ox Delivery Rate 03/ 1140 144 95 03/04 0854 95 BIPAP 50% 03/04 0853 98 95 03/04 0800 97.3 90 24 140/82 03/04 0800 97 BIPAP 50% 03/04 0800 97.3 90 24 140/82 97 BIPAP 50% 03/04 0649 138 134/79 03/04 0613 134 96 03/04 0603 146 138/80 03/04 0600 97.3 140 25 103/84 03/04 0541 144 125/95 03/04 0400 97.2 104 24 162/77 03/04 0400 96 BIPAP 50% 03/04 0309 100 94 03/04 0200 97.1 92 24 135/71 03/04 0019 93 92 03/04 0000 97.1 92 24 147/88 03/04 0000 97.1 92 24 150/80 91 BIPAP 50% 03/04 0000 91 BIPAP 50% 03/03 2200 97.8 108 24 112/78 03/03 1999 97.8 108 25 140/80 03/03 1999 91 BIPAP 50% 03/03 1936 101 96 03/03 1621 99 96 03/03 1600 97.6 100 26 156/80 03/03 1600 96 BIPAP 50% 03/03 1600 97.6 100 26 156/80 96 BIPAP 50% 03/03 1326 101 95 Intake & Output /04 1600 03/04 0800 03/04 0000 Intake Total 1111 1396 Output Total 510 580 Balance 601 816 Intake, IV 1111 1396 Intake, Oral 0 0 Number 0 0 Bowel Movements Output, Urine 510 580 Patient 235 lb Weight Weight Bed scale Measurement Method Physical Exam Other Physical Findings: General Appearance elevated BMI; requirting BiPAP Skin Chronic stasis skin changes in bilat LE. L >R LE erythema HEENT Atraumatic, sclera anicteric, mild erythema/swelling upper lip Cardiovascular S1 S2 present, no gallop/murmur Lungs BS diminished bases, b/l rhonchi Abdomen obese, soft, NT Neurological lethargic Extremities severe edema LE's. Results Last 24 Hours of Lab Results: Laboratory Tests 08/05 08/05 08/05 1105 0530 0530 Chemistry Sodium (137 - 145 mmol/L) 140 Potassium (3.5 - 5.1 mmol/L) 3.4 L Chloride (98 - 107 mmol/L) 104 Carbon Dioxide (22 - 30 mmol/L) 28 Anion Gap (5 - 16) 8 BUN (9 - 20 mg/dL) 61 H Creatinine (0.7 - 1.2 mg/dL) 1.8 H Estimated GFR (>60 ml/min) 37 L Glucose (65 - 99 mg/dL) 136 H Calcium (8.4 - 10.2 mg/dL) 8.9 Phosphorus (2.5 - 4.5 mg/dL) 3.4 Magnesium (1.6 - 2.3 mg/dL) 2.0 Total Bilirubin (0.2 - 1.3 mg/dL) 1.5 H AST (17 - 59 U/L) 84 H ALT (21 - 72 U/L) 71 Prot Electrophoresis Pending Total Protein (PEP) Pending Albumin (3.5 - 5.0 g/dL) 2.2 L Albumin % (PEP) Pending Rtnsx-0-Usesctbda Pending Shjdz-4-Wrcoeqhyf Pending Ydfu-7-Kpzzkpbg Pending Ijbj-3-Rqdagmyx Pending Gamma Globulins Pending Abnorm Protein Band 1 Pending Abnorm Protein Band 2 Pending Abnorm Protein Band 3 Pending Coagulation PT (9.4 - 12.5 SEC) 17.7 H INR (0.90 - 1.17) 1.69 H APTT (25 - 37 SEC) 102 *H 59 H Fibrinogen Activity (200 - 393 MG/DL) 452 H Hematology CBC w Diff MAN DIFF ORDERED WBC (4.8 - 10.8 /CUMM) 8.0 RBC (4.70 - 6.10 /CUMM) 4.68 L Hgb (14.0 - 18.0 G/DL) 14.9 Hct (42 - 52 %) 44.8 MCV (80.0 - 94.0 FL) 95.7 H MCH (27.0 - 31.0 PG) 31.9 H MCHC (33.0 - 37.0 G/DL) 33.3 RDW (11.5 - 14.5 %) 17.2 H Plt Count (130 - 400 /CUMM) 109 L MPV (7.4 - 10.4 FL) 8.0 Gran % (42.2 - 75.2 %) 89.0 H Lymphocytes % (20.5 - 51.1 %) 5.4 L Monocytes % (1.7 - 9.3 %) 5.3 Eosinophils % (0 - 5 %) 0.2 Basophils % (0.0 - 2.0 %) 0.1 Absolute Granulocytes (1.4 - 6.5 /CUMM) 7.1 H Segmented Neutrophils (42.2 - 75.2 %) 83 H Band Neutrophils (0.0 - 5.0 %) 8 H Absolute Lymphocytes (1.2 - 3.4 /CUMM) 0.4 L Lymphocytes (20.5 - 51.1 %) 6 L Monocytes (1.7 - 9.3 %) 3 Absolute Monocytes (0.10 - 0.60 /CUMM) 0.4 Absolute Eosinophils (0.0 - 0.7 /CUMM) 0 Absolute Basophils (0.0 - 0.2 /CUMM) 0 Nucleated RBCs (0.0 - 0.0 /100WBC) 1 H Platelet Estimate (ADEQUATE) DECREASED Poikilocytosis FEW Anisocytosis 1+ Ovalocytes FEW Immunology Complement C3 Pending Complement C4 Pending Miscellaneous Ref Lab Test Result Pending Other Body Source Fld Total RBCs Counted (%) 100 Toxicology Random Vancomycin (ug/ml) 15.8 08/05 08/04 0500 2000 Coagulation APTT (25 - 37 SEC) Cancelled 48 H Toxicology Random Vancomycin Cancelled Last 24 Hours of Zackery Results: SPEC #: [id number] SWETA: 08/05/17 STATUS: COLB RECD: - SUBM DR: Barrera KOEHLER,[facility] SOURCE: LOWER RESP ENTR: 08/05/[address] SPUTUM Patient Has No Primary Care Dr ORDERED: LOWER RESPIRATO Procedure Result LOWER RESPIRATO PENDING RECEIPT Recent Imaging Studies: CXR IMPRESSION: Likely small pleural effusions. Increasing bibasilar opacities which could represent atelectasis or pneumonia. DICTATED BY: Edson KOEHLER,Nehemiah DATE/TIME DICTATED:08/04/17133 IDENTIFICATION PRINTING MACHINE SETTER:DHARMESH DATE/TIME TRANSCRIBED:08/04/17133 Assessment/Plan ID Impression: 72 y/o WM known with obesity, CHF, HTN, prvious syncopal episode admitted to the hospital on 08/02 with MSC and SOB. MSC; broad ddx, plan to rule out stroke (LV clot and PAF) awaits MRI brain (w/o contrast one able to coperate w/ exam). Aspiration pneumonia; worsening CXR findings; Mild leukocytosis/resolved L LE cellulitis Improcing RICHI Suggestion: 1. Trend CBC, BMP, lactic acid. Pulm toilet. Sputum cx. 2. Cont empiric iv CTX/doxy D #3/5. MRSA surv cx neg; iv vancomycin discontinued. 3. If febrile please call. 4. F/U pulm recom.
--- NOTE | 2017-08-05 14:16 | PN- Cardiology ---
Subjective Subjective: The patient remains in atrial fibrillation with intermittently rapid ventricular rate. The ventricular rate normalized after he was given IV metoprolol this morning, however the rate has now increased to the 130s. He is not able to take p.o. medications. He continues to be obtunded and is unable to give any history Objective Vital Signs and I&Os Vital Signs Date Time Temp Pulse Resp B/P B/P Pulse O2 O2 Flow FiO2 Mean Ox Delivery Rate 03 1200 96.9 142 24 110/74 03/04 1200 97 BIPAP 50% 03/04 1140 144 95 03/04 1000 138 24 104/84 03/04 0854 95 BIPAP 50% 03/04 0853 98 95 03/04 0800 97.3 90 24 140/82 03/04 0800 97 BIPAP 50% 03/04 0800 97.3 90 24 140/82 97 BIPAP 50% 03/04 0649 138 134/79 03/04 0613 134 96 03/04 0603 146 138/80 03/04 0600 97.3 140 25 103/84 03/04 0541 144 125/95 03/04 0400 97.2 104 24 162/77 03/04 0400 96 BIPAP 50% 03/04 0309 100 94 03/04 0200 97.1 92 24 135/71 03/04 0019 93 92 03/04 0000 97.1 92 24 147/88 03/04 0000 97.1 92 24 150/80 91 BIPAP 50% 03/04 0000 91 BIPAP 50% 03/03 2200 97.8 108 24 112/78 03/03 1999 97.8 108 25 140/80 03/03 2000 91 BIPAP 50% 03/03 1936 101 96 03/03 1621 99 96 03/03 1600 97.6 100 26 156/80 03/03 1600 96 BIPAP 50% 03/03 1600 97.6 100 26 156/80 96 BIPAP 50% Intake & Output 03/04 1600 03/04 0800 03/04 0000 03/03 1600 03/03 0800 03/03 0000 Intake Total 1111 1396 733.3 483 588 Output Total 510 580 550 400 470 Balance 601 816 183.3 83 118 Intake, IV 1111 1396 733.3 483 588 Intake, Oral 0 0 0 Number 0 0 0 0 Bowel Movements Output, Urine 510 580 550 400 470 Patient 235 lb 232 lb Weight Weight Bed scale Bed scale Measurement Method Physical Exam: General: WD/obese male in NAD; obtunded HEENT: NC/AT, PERRl, EOMI Neck: no JVD, no carotid bruit Heart: RRR, no murmur Lungs: clear bilaterally Abdomen: soft, obese, NT, +ve bowel sounds Extremities: 3+ bilateral leg edema with weeping legs Current Medications: Current Medications Sig/Richard Start time Last Medication Dose Route Stop Time Status Admin Acetaminophen 1,000 MG ONCE ONE 08/04 2129 DC 08/04 IV 08/04 2131 2311 Albuterol Sulfate 3 ML Q4P PRN 08/04 1330 AC 08/05 INH 0825 Aspirin 300 MG 0300 08/04 0300 AC 08/05 ND 0426 Ceftriaxone Sodium 2,000 MG DAILY@1900 08/03 1900 AC 08/04 IV 1951 Cyanocobalamin/ 1 BAG DAILY@1600 08/04 1600 AC 08/04 Thiamine/Pyridoxine IV 1951 Dextrose/Water 1,000 ML Dextrose/Lactated 1,000 ML Q13H 08/04 1500 AC 08/05 Ringer's IV 0544 Diltiazem HCl 125 MG Q8H 08/05 0845 AC 08/05 Sodium Chloride 100 ML IV 1020 Diltiazem HCl 5 MG ONCE ONE 08/05 0530 DC 08/05 IV PUSH 08/05 0531 0541 Diltiazem HCl 125 MG Q10H / 0100 DC 08/05 Sodium Chloride 100 ML IV 0219 Diltiazem HCl 125 MG Q12H 08/04 1115 DC 08/04 Sodium Chloride 100 ML IV 08/05 0059 2300 Doxycycline Hyclate 100 MG Q12H 08/04 1315 AC 08/05 Sodium Chloride 100 ML IV 1248 Heparin Sodium 3,201 UNIT ONCE ONE 08/05 0630 DC 08/05 (Porcine) IV 08/05 0631 0721 Heparin Sodium 3,201 UNIT BOLUS ONE 08/04 2330 DC 08/04 (Porcine) IV 08/04 2331 2330 Heparin Sodium 25,000 UNIT Q24H / 1545 AC 08/04 (Porcine) IV 0902 Sodium Chloride 500 ML Magnesium Sulfate 1 GM ONCE ONE 08/04 2129 DC 08/04 Dextrose/Water 100 ML IV 08/05 0129 2128 Metoprolol Tartrate 5 MG Q4 08/05 1800 UNVr IV Metoprolol Tartrate 5 MG ONCE ONE 08/05 0645 DC 08/05 IV 08/05 0646 0649 Metoprolol Tartrate 5 MG ONCE ONE 08/05 0600 DC 08/05 IV 08/05 0601 0603 Nystatin 1 CYN BID PRN 08/03 0645 AC TOP Pantoprazole Sodium 40 MG DAILY 08/03 1000 AC 08/05 IV 1019 Potassium Chloride 10 MEQ Q1H 08/05 0700 DC 08/05 IV 08/05 0901 1020 Potassium Chloride 10 MEQ ONCE ONE 08/04 2130 DC 08/04 IV 08/04 2131 2335 Thiamine HCl 100 MG Q8H 08/02 2330 DC 08/04 Sodium Chloride 50 ML IV 2335 Results Last 48 Hrs of Labs/Mics: Laboratory Tests 08/05/17 1105: APTT 102 *H 08/05/17 0530: Prot Electrophoresis Pending, Total Protein (PEP) Pending, Albumin % (PEP) Pending, Ynyss-9-Mrbhotlmp Pending, Vwjht-8-Wkqbakxdw Pending, Sfcp-5-Keblgnxx Pending, Ehag-2-Gdjvmefb Pending, Gamma Globulins Pending, Abnorm Protein Band 1 Pending, Abnorm Protein Band 2 Pending, Abnorm Protein Band 3 Pending 08/05/17 0530: Anion Gap 8, Estimated GFR 37 L, Glucose 136 H, Calcium 8.9, Phosphorus 3.4, Magnesium 2.0, Total Bilirubin 1.5 H, AST 84 H, ALT 71, Albumin 2.2 L, PT 17.7 H, INR 1.69 H, APTT 59 H, Fibrinogen Activity 452 H, CBC w Diff MAN DIFF ORDERED, RBC 4.68 L, MCV 95.7 H, MCH 31.9 H, MCHC 33.3, RDW 17.2 H, MPV 8.0, Gran % 89.0 H, Lymphocytes % 5.4 L, Monocytes % 5.3, Eosinophils % 0.2, Basophils % 0.1, Absolute Granulocytes 7.1 H, Segmented Neutrophils 83 H, Band Neutrophils 8 H, Absolute Lymphocytes 0.4 L, Lymphocytes 6 L, Monocytes 3, Absolute Monocytes 0.4, Absolute Eosinophils 0, Absolute Basophils 0, Nucleated RBCs 1 H, Platelet Estimate DECREASED, Poikilocytosis FEW, Anisocytosis 1+, Ovalocytes FEW, Complement C3 Pending, Complement C4 Pending, Ref Lab Test Result Pending, Fld Total RBCs Counted 100, Random Vancomycin 15.8 08/05/17 0500: APTT Cancelled, Random Vancomycin Cancelled 08/04/171999: APTT 48 H 08/04/17 1234: APTT 102 *H 08/04/17 0445: Anion Gap 11, Estimated GFR 29 L, Glucose 90, Calcium 9.0, Phosphorus 4.5, Magnesium 1.9, Total Bilirubin 1.5 H, AST 86 H, ALT 72, Albumin 2.3 L, CBC w Diff NO MAN DIFF REQ, RBC 4.71, MCV 96.7 H, MCH 31.9 H, MCHC 33.0, RDW 16.8 H , MPV 8.1, Gran % 90.1 H, Lymphocytes % 4.6 L, Monocytes % 5.3, Eosinophils % 0, Basophils % 0, Absolute Granulocytes 9.0 H, Absolute Lymphocytes 0.5 L, Absolute Monocytes 0.5, Absolute Eosinophils 0, Absolute Basophils 0 08/04/17 0110: pH 7.38, pCO2 42, pO2 98, HCO3 24, ABG O2 Sat (Measured) 97.0, P-50 (Temp Corrected) N, Carboxyhemoglobin 0.8 L, O2 Concentration % .50, Respiration Rate 24, O2 Delivery Method BIPAP, Vent Mode ST, Expiratory Pressure 4, Inspiratory Pressure 20, Phlebotomy Draw Site RIGHT RADIAL 08/04/17 0020: APTT 73 H 08/03/17 1720: Ammonia < 9 L, APTT 58 H Assessment/Plan Assessment/Plan Assessment: 1. Change in mental status, uncertain 2. Positive troponin, suggestive of type II PA 3. Aspiration pneumonia 4. Paroxysmal A-fib 5. Frequent premature atrial contractions and premature ventricular contraction 6. LVEF 50% Plan: * Continue diltiazem drip while unable to take po medications * Start IV metoprolol 5 mg every 4 hours, with additional doses of IV metoprolol as needed to maintain ventricular rate less than 110 * Antibiotics as per the medical service * Check basic metabolic profile daily * Supplement potassium to greater than 4.0 Continue telemetry? Yes
--- NOTE | 2017-08-05 16:33 | RADIOLOGY REPORT ---
EXAMINATION: XR PORTABLE CHEST CLINICAL INFORMATION: Shortness of breath and increasing oxygen demand. COMPARISON: Chest radiography 08/04/2017. TECHNIQUE: Portable frontal view of the chest was obtained. FINDINGS: The lungs are fairly well expanded. There is mildly worsening mid to lower lung consolidation. Central vasculature prominence noted. Possible left pleural effusion. No pneumothorax. The cardiac contour is prominent. No acute osseous abnormalities. IMPRESSION: Mildly worsened parenchymal consolidation which is predominantly in the mid to lower lungs. Possible left pleural effusion. Consider sequela of pulmonary edema or multifocal infection.
[2017-08-05 18:52] LABS: ABSOLUTE BASOPHIL COUNT 0 /CUMM (0.0-0.2); ABSOLUTE EOSINOPHIL COUNT 0 /CUMM (0.0-0.7); ABSOLUTE GRANULOCYTE CT 7.3 /CUMM (1.4-6.5); ABSOLUTE LYMPH COUNT 0.5 /CUMM (1.2-3.4); ABSOLUTE MONOCYTE COUNT 0.5 /CUMM (0.10-0.60); BASOPHIL % 0.2 % (0.0-2.0); EOSINOPHIL % 0.1 % (0-5); GRANULOCYTE % 88.1 % (42.2-75.2); HEMATOCRIT 46.2 % (42-52); MEAN CORPUSCULAR HGB 31.3 PG (27.0-31.0); MEAN CORPUSCULAR HGB CONC 32.3 G/DL (33.0-37.0); MEAN PLATELET VOLUME 8.3 FL (7.4-10.4); PLATELET COUNT 123 /CUMM (130-400); RBC DISTRIBUTION WIDTH 17.9 % (11.5-14.5); RED BLOOD CELL CT 4.76 /CUMM (4.70-6.10); WHITE BLOOD CELL COUNT 8.3 /CUMM (4.8-10.8)
[2017-08-05 19:10] LABS: PTT 34 SEC (25-37)
[2017-08-06] VITALS (8 sets, daily range): BP systolic 107–149; BP diastolic 56–106
[2017-08-06 02:45] LABS: ABSOLUTE BASOPHIL COUNT 0 /CUMM (0.0-0.2); ABSOLUTE EOSINOPHIL COUNT 0 /CUMM (0.0-0.7); ABSOLUTE GRANULOCYTE CT 5.9 /CUMM (1.4-6.5); ABSOLUTE LYMPH COUNT 0.5 /CUMM (1.2-3.4); ABSOLUTE MONOCYTE COUNT 0.4 /CUMM (0.10-0.60); BASOPHIL % 0.1 % (0.0-2.0); EOSINOPHIL % 0.1 % (0-5); HEMATOCRIT 45.3 % (42-52); MEAN CORPUSCULAR HGB 31.9 PG (27.0-31.0); MEAN CORPUSCULAR HGB CONC 33.4 G/DL (33.0-37.0); MEAN CORPUSCULAR VOLUME 95.6 FL (80.0-94.0); MEAN PLATELET VOLUME 8.7 FL (7.4-10.4); PLATELET COUNT 115 /CUMM (130-400); RBC DISTRIBUTION WIDTH 16.8 % (11.5-14.5); RED BLOOD CELL CT 4.74 /CUMM (4.70-6.10); WHITE BLOOD CELL COUNT 6.9 /CUMM (4.8-10.8)
[2017-08-06 03:09] LABS: PTT > 120 SEC (25-37)
--- NOTE | 2017-08-06 07:14 | PN- Resident CRCU ---
Subjective HPI/CRCU Issues: Altered mental status A. fib with RVR Apical thrombus Hypoxemic respiratory failure Type II LA RICHI 24 Hour Events: No overnight events reported. Seen and examined patient continues to be obtunded however this morning he opened his eyes spontaneously to voice. Does obey not commands. Afebrile overnight, heart rate 60 to 70s, A. fib/aflutter Blood pressure [id number] systolic, 60s to 70s diastolic Currently on BiPAP FiO2 of 60% Cardizem currently running at age of 16 On IV heparin Total balance 959/4290 Daily intake 3240/1640 Objective Vital Signs & I&O Last 8 Hrs of Vitals and I&O: Intake & Output 08/06 1600 08/06 0800 08/06 0000 Intake Total 1185 1126 Output Total 400 450 Balance 785 676 Intake, IV 1185 1126 Intake, Oral 0 0 Number 0 0 Bowel Movements Output, Urine 400 450 Laboratory Tests 08/06 08/05 0215 1825 Chemistry Sodium (137 - 145 mmol/L) 142 Potassium (3.5 - 5.1 mmol/L) 3.7 Chloride (98 - 107 mmol/L) 108 H Carbon Dioxide (22 - 30 mmol/L) 27 Anion Gap (5 - 16) 7 BUN (9 - 20 mg/dL) 51 H Creatinine (0.7 - 1.2 mg/dL) 1.7 H Estimated GFR (>60 ml/min) 40 L Glucose (65 - 99 mg/dL) 136 H Calcium (8.4 - 10.2 mg/dL) 8.5 Phosphorus (2.5 - 4.5 mg/dL) 3.1 Magnesium (1.6 - 2.3 mg/dL) 1.8 Total Bilirubin (0.2 - 1.3 mg/dL) 1.0 AST (17 - 59 U/L) 69 H ALT (21 - 72 U/L) 69 Albumin (3.5 - 5.0 g/dL) 2.0 L Coagulation APTT (25 - 37 SEC) > 120 *H 34 Hematology CBC w Diff MAN DIFF ORDERED NO MAN DIFF REQ WBC (4.8 - 10.8 /CUMM) 6.9 8.3 RBC (4.70 - 6.10 /CUMM) 4.74 4.76 Hgb (14.0 - 18.0 G/DL) 15.1 14.9 Hct (42 - 52 %) 45.3 46.2 MCV (80.0 - 94.0 FL) 95.6 H 97.0 H MCH (27.0 - 31.0 PG) 31.9 H 31.3 H MCHC (33.0 - 37.0 G/DL) 33.4 32.3 L RDW (11.5 - 14.5 %) 16.8 H 17.9 H Plt Count (130 - 400 /CUMM) 115 L 123 L MPV (7.4 - 10.4 FL) 8.7 8.3 Gran % (42.2 - 75.2 %) 86.0 H 88.1 H Lymphocytes % (20.5 - 51.1 %) 7.3 L 5.5 L Monocytes % (1.7 - 9.3 %) 6.5 6.1 Eosinophils % (0 - 5 %) 0.1 0.1 Basophils % (0.0 - 2.0 %) 0.1 0.2 Absolute Granulocytes (1.4 - 6.5 /CUMM) 5.9 7.3 H Segmented Neutrophils (42.2 - 75.2 %) 73 Band Neutrophils (0.0 - 5.0 %) 15 H Absolute Lymphocytes (1.2 - 3.4 /CUMM) 0.5 L 0.5 L Lymphocytes (20.5 - 51.1 %) 5 L Monocytes (1.7 - 9.3 %) 7 Absolute Monocytes (0.10 - 0.60 /CUMM) 0.4 0.5 Absolute Eosinophils (0.0 - 0.7 /CUMM) 0 0 Absolute Basophils (0.0 - 0.2 /CUMM) 0 0 Platelet Estimate (ADEQUATE) ADEQUATE Basophilic Stippling RARE Target Cells RARE [place] Cells 1+ Elliptocytes 1+ 03/04 03/04 1200 1105 Chemistry Sodium Cancelled Potassium Cancelled Chloride Cancelled Carbon Dioxide Cancelled Anion Gap Cancelled BUN Cancelled Creatinine Cancelled Glucose Cancelled Calcium Cancelled Phosphorus Cancelled Magnesium Cancelled Total Bilirubin Cancelled AST Cancelled ALT Cancelled Albumin Cancelled Coagulation APTT (25 - 37 SEC) 102 *H Exam General Appearance: OBTUNDED, NOT OBEYING COMMANDS Respiratory: rhonchi Cardiovascular: irregularly irregular Gastrointestinal: normal bowel sounds, soft, non-tender Extremities: pedal edema, improving erythema of b/l lower extremitis, yellowish discharge noted on left lower extremity Current Medications: Current Medications Sig/Richard Start time Last Medication Dose Route Stop Time Status Admin Albuterol Sulfate 3 ML BID 08/06 1000 AC INH Albuterol Sulfate 3 ML Q4P PRN 08/04 1330 AC 08/06 INH 0832 Aspirin 300 MG 0300 08/04 0300 AC 08/06 MD 0229 Ceftriaxone Sodium 2,000 MG DAILY@1900 08/03 1900 AC 08/05 IV 1804 Cyanocobalamin/ 1 BAG DAILY@1600 08/04 1600 AC 08/05 Thiamine/Pyridoxine IV 1532 Dextrose/Water 1,000 ML Dextrose/Lactated 1,000 ML Q13H 08/04 1500 AC 08/06 Ringer's IV 0555 Diltiazem HCl 125 MG Q10H 08/06 1030 AC Sodium Chloride 100 ML IV Diltiazem HCl 125 MG Q8H 08/05 0845 AC 08/06 Sodium Chloride 100 ML IV 08/06 1029 0859 Doxycycline Hyclate 100 MG Q12H 08/04 1315 AC 08/06 Sodium Chloride 100 ML IV 0145 Heparin Sodium 5,000 UNIT ONE ONE 08/05 1915 DC / (Porcine) IV / 1916 1941 Heparin Sodium 25,000 UNIT Q24H 08/02 1545 AC 08/05 (Porcine) IV 1531 Sodium Chloride 500 ML Metoprolol Tartrate 5 MG Q4 08/05 1800 DC IV Metoprolol Tartrate 5 MG Q4 / 1515 AC 08/06 IV 0901 Nystatin 1 CYN BID PRN 08/03 0645 AC TOP Pantoprazole Sodium 40 MG DAILY 08/03 1000 AC 08/06 IV 0901 CXR Findings: SERVICE DATE: 08/05/17- EXAM TYPE: RAD - XRY-PORTABLE CHEST XRAY FINDINGS: The lungs are fairly well expanded. There is mildly worsening mid to lower lung consolidation. Central vasculature prominence noted. Possible left pleural effusion. No pneumothorax. The cardiac contour is prominent. No acute osseous abnormalities. IMPRESSION: Mildly worsened parenchymal consolidation which is predominantly in the mid to lower lungs. Possible left pleural effusion. Consider sequela of pulmonary edema or multifocal infection. Impression/Plan Impression/Problem List Impression: 72 year old gentleman with past medical history significant for diastolic heart failure, hypertension syncope, per family he had an LA and had a stent placement at [facility] about 7 years ago, recent fall couple of days prior to admission, brought in by ambulance for altered mental status. On dmission found to have transaminitis, increased INR, elevated troponins. Altered mental status Unclear etiology at this time. Possibly secondary to underlying infection ( versus polypharmacy versus stroke obtained MRI if stable enough and off BiPAP Preliminary blood cultures show no growth, no increased WBC, electrolytes within normal limits Transaminitis trended down Acetaminophen/salicycylates levels within normal CT head 3 showed no acute intracranial pathology or hemorrhage CT abdomen and pelvis showed sigmoid diverticulosis without evidence of diverticulitis EEG pending ID and neuro on board appreciate recommendations Vit b12, ammonia levels wnl, UA neg for nitrates or leukocyte esterase Given one time trial of flumazenil 0.5mg, with no change in mental status noted. Acute Respiratory failure afebrile overnight, no leukocytosis how worsening bandemia 8->15 today multifactorial (aspiration/pneumonia/ worsening pulm edema) BiPaP PRn, with low threshold for intubation TRC/nebs Chest x-ray done 08/05/17 : Mildly worsened parenchymal consolidation which is predominantly in the mid to lower lungs. Possible left pleural effusion. Consider sequela of pulmonary edema or multifocal infection. On doxycycline 100mg q12, ceftriaxone 2g and two doses of vancomycin 1500mg, last random leve 15.8 (08/05/17) Will benefit from diuresis, will repeat CXR and give one time dose of IV 20mg lasix will dc his banana bag and his IVF RL Atrial fibrillation with Rapid ventricular rate Status post synchronized cardioversion Continue IV heparin Continue IV Cardizem drip , continue to titrate for heart rate and blood pressure A cardiogram done 08/02/2017 showed normal EF of 50% with inferoapical and apical hypokinesis and large pedicle thrombus Positive troponins peaked to 1.98 and trended down likely type II LA TFT wnl Aterial doppler showed patent deep arterial systems of the bilateral lower extremities. Deep arteries of the left calf were not clearly visualized, however , left dorsal pedis artery was documented as patent. cardiology on board appreciate recomendation Transaminitis LTF's trending down Hepatitis panel and HIV nonreactive, RICHI-improving Cr/bun 51/1.7 today likely ischemic ATN Cellulitis given two doses of vancomycin Lower extremity Dopplers ruled out DVT DVT: IV heparin full code guarded prognosis spoke to son this morning and gave him an update. He would like only two visitors to visit the patient. His brother rachna Pike, his landlord josé luis. He would not like his other brother Kimberly Pike to visit or be given any information. Problem List: 1. Rapid atrial fibrillation 2. Elevated troponin 3. Hypotension Pain Ratin Tomorrow's Labs & Rationales: cbc/icu Plan DVT/Prophylaxis: pharmacological
--- NOTE | 2017-08-06 10:25 | PN- Infect Dx ---
Subjective Subjective: Afebrile. He is unable to provide any history. Objective Last 24 Hrs of Vital Signs/I&O Vital Signs Date Time Temp Pulse Resp B/P B/P Pulse O2 O2 Flow FiO2 Mean Ox Delivery Rate 08/06 0820 93 Nasal 80% Cannula 03/05 0810 73 93 03/ 0800 95 Nasal 80% Cannula 03/05 0800 97.1 71 21 110/76 95 Nasal 80% Cannula 03/05 0600 141 129/74 03/05 0600 140 28 122/63 03/05 0539 81 92 03/05 0500 96 BIPAP 60% 03/05 0400 98.5 127 30 149/106 03/05 0355 101 93 03/05 0228 101 138/60 03/05 0200 114 24 138/60 03/05 0054 94 90 03/05 0030 130 94 03/05 0000 97.9 100 28 140/68 03/05 0000 97.9 100 28 140/68 94 Nasal 55% Cannula 03/05 0000 94 Nasal 55% Cannula 03/04 2200 92 26 128/65 03/04 2144 141 124/72 03/04 2041 95 Nasal 55% Cannula 03/04 1999 97.7 93 16 126/62 03/04 2000 97 Nasal 55% Cannula 03/04 1805 142 120/76 03/04 1629 130 96 03/04 1600 97.4 112 27 118/80 03/04 1600 94 BIPAP 50% 03/04 1600 97.4 112 27 118/80 94 BIPAP 45% 03/04 1530 144 98/80 03/04 1424 124 96 03/04 1400 144 25 110/84 03/04 1200 96.9 142 24 110/74 03/04 1200 97 BIPAP 50% 03/04 1140 144 95 Intake & Output 03/05 1600 03/05 0800 03/05 0000 Intake Total 1185 1126 Output Total 400 450 Balance 785 676 Intake, IV 1185 1126 Intake, Oral 0 0 Number 0 0 Bowel Movements Output, Urine 400 450 Physical Exam Other Physical Findings: He is minimally responsive, mildly agitated, on high flow oxygen Lungs bilateral rhonchi Heart regular rhythm with no murmur Abdomen is obese, nontender with positive bowel sounds Extremities erythema of the left leg, with necrotic lesion on the right third toe, with open ulcerations on both legs, with bilateral lower extremity edema Eason catheter remains in place Results Last 24 Hours of Lab Results: Laboratory Tests 08/06 08/06 0948 0215 Chemistry Sodium (137 - 145 mmol/L) 142 Potassium (3.5 - 5.1 mmol/L) 3.7 Chloride (98 - 107 mmol/L) 108 H Carbon Dioxide (22 - 30 mmol/L) 27 Anion Gap (5 - 16) 7 BUN (9 - 20 mg/dL) 51 H Creatinine (0.7 - 1.2 mg/dL) 1.7 H Estimated GFR (>60 ml/min) 40 L Glucose (65 - 99 mg/dL) 136 H Calcium (8.4 - 10.2 mg/dL) 8.5 Phosphorus (2.5 - 4.5 mg/dL) 3.1 Magnesium (1.6 - 2.3 mg/dL) 1.8 Total Bilirubin (0.2 - 1.3 mg/dL) 1.0 AST (17 - 59 U/L) 69 H ALT (21 - 72 U/L) 69 Albumin (3.5 - 5.0 g/dL) 2.0 L Coagulation PT Pending INR Pending APTT (25 - 37 SEC) Pending > 120 *H Hematology CBC w Diff MAN DIFF ORDERED WBC (4.8 - 10.8 /CUMM) 6.9 RBC (4.70 - 6.10 /CUMM) 4.74 Hgb (14.0 - 18.0 G/DL) 15.1 Hct (42 - 52 %) 45.3 MCV (80.0 - 94.0 FL) 95.6 H MCH (27.0 - 31.0 PG) 31.9 H MCHC (33.0 - 37.0 G/DL) 33.4 RDW (11.5 - 14.5 %) 16.8 H Plt Count (130 - 400 /CUMM) 115 L MPV (7.4 - 10.4 FL) 8.7 Gran % (42.2 - 75.2 %) 86.0 H Lymphocytes % (20.5 - 51.1 %) 7.3 L Monocytes % (1.7 - 9.3 %) 6.5 Eosinophils % (0 - 5 %) 0.1 Basophils % (0.0 - 2.0 %) 0.1 Absolute Granulocytes (1.4 - 6.5 /CUMM) 5.9 Segmented Neutrophils (42.2 - 75.2 %) 73 Band Neutrophils (0.0 - 5.0 %) 15 H Absolute Lymphocytes (1.2 - 3.4 /CUMM) 0.5 L Lymphocytes (20.5 - 51.1 %) 5 L Monocytes (1.7 - 9.3 %) 7 Absolute Monocytes (0.10 - 0.60 /CUMM) 0.4 Absolute Eosinophils (0.0 - 0.7 /CUMM) 0 Absolute Basophils (0.0 - 0.2 /CUMM) 0 Platelet Estimate (ADEQUATE) ADEQUATE Basophilic Stippling RARE Target Cells RARE [place] Cells 1+ Elliptocytes 1+ /08/05 1825 1200 1105 Chemistry Sodium Cancelled Potassium Cancelled Chloride Cancelled Carbon Dioxide Cancelled Anion Gap Cancelled BUN Cancelled Creatinine Cancelled Glucose Cancelled Calcium Cancelled Phosphorus Cancelled Magnesium Cancelled Total Bilirubin Cancelled AST Cancelled ALT Cancelled Albumin Cancelled Coagulation APTT (25 - 37 SEC) 34 102 *H Hematology CBC w Diff NO MAN DIFF REQ WBC (4.8 - 10.8 /CUMM) 8.3 RBC (4.70 - 6.10 /CUMM) 4.76 Hgb (14.0 - 18.0 G/DL) 14.9 Hct (42 - 52 %) 46.2 MCV (80.0 - 94.0 FL) 97.0 H MCH (27.0 - 31.0 PG) 31.3 H MCHC (33.0 - 37.0 G/DL) 32.3 L RDW (11.5 - 14.5 %) 17.9 H Plt Count (130 - 400 /CUMM) 123 L MPV (7.4 - 10.4 FL) 8.3 Gran % (42.2 - 75.2 %) 88.1 H Lymphocytes % (20.5 - 51.1 %) 5.5 L Monocytes % (1.7 - 9.3 %) 6.1 Eosinophils % (0 - 5 %) 0.1 Basophils % (0.0 - 2.0 %) 0.2 Absolute Granulocytes (1.4 - 6.5 /CUMM) 7.3 H Absolute Lymphocytes (1.2 - 3.4 /CUMM) 0.5 L Absolute Monocytes (0.10 - 0.60 /CUMM) 0.5 Absolute Eosinophils (0.0 - 0.7 /CUMM) 0 Absolute Basophils (0.0 - 0.2 /CUMM) 0 Last 24 Hours of [place]ack[place] Results: No recent cultures Assessment/Plan ID Impression: Condition poor, with mental status remaining abnormal, for unclear reasons, though temperatures and white blood cell count remain normal, on Ceftriaxone, Doxycycline and Vancomycin, with the dose of Vancomycin adjusted for his renal insufficiency. It is not clear if he he has any active infectious process, with his chest x-ray more suggestive of pulmonary edema, his lower extremities likely revealing chronic changes and his cultures remaining negative. A [employer] infection is possible and, as his mental status has not improved, it may be reasonable to rule out, though his normal temperatures make this less likely and his CSF results will likely be affected by his current antibiotics. Suggestion: 1. Would pursue lumbar puncture if able to hold his Heparin and INR acceptable 2. Would discuss need for diuresis with Cardiology 3. Would hold on further Vancomycin 4. Decrease Ceftriaxone to 1 g IV every 24 hours 5. Continue Doxycycline
[2017-08-06 10:51] LABS: PT 16.9 SEC (9.4-12.5); PTT 58 SEC (25-37)
--- NOTE | 2017-08-06 12:09 | RADIOLOGY REPORT ---
EXAMINATION: XR PORTABLE CHEST CLINICAL INFORMATION: Worsening shortness of breath. Evaluate for pulmonary edema. COMPARISON: Chest radiograph 08/05/2017. TECHNIQUE: Portable frontal view of the chest was obtained. FINDINGS: Cardiac leads overlie the chest. The cardiac silhouette is grossly enlarged and there is hilar vascular engorgement. Ill-defined alveolar and interstitial opacities visualized within both lungs with a perihilar and lower lobe predominant distribution. A left effusion has increased in size from prior imaging. No acute osseous finding. IMPRESSION: There is cardiomegaly and progressive airspace disease that is most consistent with worsening pulmonary edema. The possibility of superimposed pneumonia cannot be excluded. The size of a left effusion has increased.
--- NOTE | 2017-08-06 13:17 | PN- CRCU ---
Subjective HPI/Critical Care Issues: Afebrile NO sig improvement in mental status Has remained afebrile Now in hypoxic resp failure requiring high flow Still obtunded Weekend notes reviewed Cont in be in fib and flutter with rate control on dilt and at times abbi Objective Current Medications: Current Medications Sig/Richard Start time Last Medication Dose Route Stop Time Status Admin Albuterol Sulfate 3 ML BID 08/06 1000 AC INH Albuterol Sulfate 3 ML Q4P PRN 08/04 1330 AC 08/06 INH 0832 Aspirin 300 MG 0300 08/04 0300 AC 08/06 DC 0229 Ceftriaxone Sodium 1,000 MG DAILY@1900 08/06 1900 AC IV Ceftriaxone Sodium 2,000 MG DAILY@1900 08/03 1900 DC 08/05 IV 1804 Cyanocobalamin/ 1 BAG DAILY@1600 08/04 1600 DC 08/05 Thiamine/Pyridoxine IV 1532 Dextrose/Water 1,000 ML Dextrose/Lactated 1,000 ML Q20H 08/06 1115 DC 08/06 Ringer's IV 1112 Dextrose/Lactated 1,000 ML Q13H 08/04 1500 DC 08/06 Ringer's IV 0555 Diltiazem HCl 125 MG Q24H 08/06 2230 AC Sodium Chloride 100 ML IV Diltiazem HCl 125 MG Q12H 08/06 1030 AC 08/06 Sodium Chloride 100 ML IV 08/06 2229 0950 Diltiazem HCl 125 MG Q8H / 0845 DC 08/06 Sodium Chloride 100 ML IV / 1029 0859 Doxycycline Hyclate 100 MG Q12H 08/04 1315 AC 08/06 Sodium Chloride 100 ML IV 0145 Furosemide 20 MG 1045 / 1045 DC 03/ IV / 1046 1044 Heparin Sodium 5,000 UNIT ONE ONE 08/05 1915 DC 08/05 (Porcine) IV / 1916 1941 Heparin Sodium 25,000 UNIT Q24H / 1545 AC 08/06 (Porcine) IV 1125 Sodium Chloride 500 ML Magnesium Sulfate 1 GM Q2H 08/06 0945 AC 08/06 Dextrose/Water 100 ML IV 08/06 1344 1112 Metoprolol Tartrate 5 MG Q4 08/05 1800 DC IV Metoprolol Tartrate 5 MG Q4 08/05 1515 AC 08/06 IV 0901 Nystatin 1 CYN BID PRN 08/03 0645 AC TOP Pantoprazole Sodium 40 MG DAILY 08/03 1000 AC 08/06 IV 0901 Potassium Chloride 10 MEQ Q1H 08/06 0945 CAN IV 08/06 1046 Potassium Chloride 10 MEQ Q1H 08/06 0945 DC 08/06 IV 08/06 1046 1151 Vital Signs & I&O Last 24 Hrs of Vitals and I&O: Vital Signs Date Time Temp Pulse Resp B/P B/P Pulse O2 O2 Flow FiO2 Mean Ox Delivery Rate 08/06 1200 94 Nasal 80% Cannula 08/06 1140 94 Nasal 75% Cannula 08/06 0820 93 Nasal 80% Cannula 08/06 0810 73 93 / 0800 95 Nasal 80% Cannula 08/06 0800 97.1 71 21 110/76 95 Nasal 80% Cannula 08/06 0600 141 129/74 03/05 0600 140 28 122/63 03/05 0539 81 92 03/05 0500 96 BIPAP 60% / 0400 98.5 127 30 149/106 03/05 0355 101 93 03/05 0228 101 138/60 03/05 0200 114 24 138/60 03/05 0054 94 90 03/05 0030 130 94 03/05 0000 97.9 100 28 140/68 03/05 0000 97.9 100 28 140/68 94 Nasal 55% Cannula 03/05 0000 94 Nasal 55% Cannula 03/04 2200 92 26 128/65 03/04 2144 141 124/72 03/04 2041 95 Nasal 55% Cannula /1999 97.7 93 16 126/62 03/04 1999 97 Nasal 55% Cannula 03/04 1805 142 120/76 03/04 1629 130 96 03/04 1600 97.4 112 27 118/80 03/04 1600 94 BIPAP 50% 03/04 1600 97.4 112 27 118/80 94 BIPAP 45% 03/04 1530 144 98/80 03/04 1424 124 96 03/04 1400 144 25 110/84 Intake & Output / 1600 03/05 0800 03/05 0000 Intake Total 1185 1126 Output Total 400 450 Balance 785 676 Intake, IV 1185 1126 Intake, Oral 0 0 Number 0 0 Bowel Movements Output, Urine 400 450 Patient 239 lb Weight Weight Bed scale Measurement Method Laboratory Tests 08/06 08/06 0948 0215 Chemistry Sodium (137 - 145 mmol/L) 142 Potassium (3.5 - 5.1 mmol/L) 3.7 Chloride (98 - 107 mmol/L) 108 H Carbon Dioxide (22 - 30 mmol/L) 27 Anion Gap (5 - 16) 7 BUN (9 - 20 mg/dL) 51 H Creatinine (0.7 - 1.2 mg/dL) 1.7 H Estimated GFR (>60 ml/min) 40 L Glucose (65 - 99 mg/dL) 136 H Calcium (8.4 - 10.2 mg/dL) 8.5 Phosphorus (2.5 - 4.5 mg/dL) 3.1 Magnesium (1.6 - 2.3 mg/dL) 1.8 Total Bilirubin (0.2 - 1.3 mg/dL) 1.0 AST (17 - 59 U/L) 69 H ALT (21 - 72 U/L) 69 Albumin (3.5 - 5.0 g/dL) 2.0 L Coagulation PT (9.4 - 12.5 SEC) 16.9 H INR (0.90 - 1.17) 1.54 H APTT (25 - 37 SEC) 58 H > 120 *H Hematology CBC w Diff MAN DIFF ORDERED WBC (4.8 - 10.8 /CUMM) 6.9 RBC (4.70 - 6.10 /CUMM) 4.74 Hgb (14.0 - 18.0 G/DL) 15.1 Hct (42 - 52 %) 45.3 MCV (80.0 - 94.0 FL) 95.6 H MCH (27.0 - 31.0 PG) 31.9 H MCHC (33.0 - 37.0 G/DL) 33.4 RDW (11.5 - 14.5 %) 16.8 H Plt Count (130 - 400 /CUMM) 115 L MPV (7.4 - 10.4 FL) 8.7 Gran % (42.2 - 75.2 %) 86.0 H Lymphocytes % (20.5 - 51.1 %) 7.3 L Monocytes % (1.7 - 9.3 %) 6.5 Eosinophils % (0 - 5 %) 0.1 Basophils % (0.0 - 2.0 %) 0.1 Absolute Granulocytes (1.4 - 6.5 /CUMM) 5.9 Segmented Neutrophils (42.2 - 75.2 %) 73 Band Neutrophils (0.0 - 5.0 %) 15 H Absolute Lymphocytes (1.2 - 3.4 /CUMM) 0.5 L Lymphocytes (20.5 - 51.1 %) 5 L Monocytes (1.7 - 9.3 %) 7 Absolute Monocytes (0.10 - 0.60 /CUMM) 0.4 Absolute Eosinophils (0.0 - 0.7 /CUMM) 0 Absolute Basophils (0.0 - 0.2 /CUMM) 0 Platelet Estimate (ADEQUATE) ADEQUATE Basophilic Stippling RARE Target Cells RARE [place] Cells 1+ Elliptocytes 1+ /08/05 1825 1200 1105 Chemistry Sodium Cancelled Potassium Cancelled Chloride Cancelled Carbon Dioxide Cancelled Anion Gap Cancelled BUN Cancelled Creatinine Cancelled Glucose Cancelled Calcium Cancelled Phosphorus Cancelled Magnesium Cancelled Total Bilirubin Cancelled AST Cancelled ALT Cancelled Albumin Cancelled Coagulation APTT (25 - 37 SEC) 34 102 *H Hematology CBC w Diff NO MAN DIFF REQ WBC (4.8 - 10.8 /CUMM) 8.3 RBC (4.70 - 6.10 /CUMM) 4.76 Hgb (14.0 - 18.0 G/DL) 14.9 Hct (42 - 52 %) 46.2 MCV (80.0 - 94.0 FL) 97.0 H MCH (27.0 - 31.0 PG) 31.3 H MCHC (33.0 - 37.0 G/DL) 32.3 L RDW (11.5 - 14.5 %) 17.9 H Plt Count (130 - 400 /CUMM) 123 L MPV (7.4 - 10.4 FL) 8.3 Gran % (42.2 - 75.2 %) 88.1 H Lymphocytes % (20.5 - 51.1 %) 5.5 L Monocytes % (1.7 - 9.3 %) 6.1 Eosinophils % (0 - 5 %) 0.1 Basophils % (0.0 - 2.0 %) 0.2 Absolute Granulocytes (1.4 - 6.5 /CUMM) 7.3 H Absolute Lymphocytes (1.2 - 3.4 /CUMM) 0.5 L Absolute Monocytes (0.10 - 0.60 /CUMM) 0.5 Absolute Eosinophils (0.0 - 0.7 /CUMM) 0 Absolute Basophils (0.0 - 0.2 /CUMM) 0 /04 08/05 08/05 0530 0530 0500 Chemistry Sodium (137 - 145 mmol/L) 140 Potassium (3.5 - 5.1 mmol/L) 3.4 L Chloride (98 - 107 mmol/L) 104 Carbon Dioxide (22 - 30 mmol/L) 28 Anion Gap (5 - 16) 8 BUN (9 - 20 mg/dL) 61 H Creatinine (0.7 - 1.2 mg/dL) 1.8 H Estimated GFR (>60 ml/min) 37 L Glucose (65 - 99 mg/dL) 136 H Calcium (8.4 - 10.2 mg/dL) 8.9 Phosphorus (2.5 - 4.5 mg/dL) 3.4 Magnesium (1.6 - 2.3 mg/dL) 2.0 Total Bilirubin (0.2 - 1.3 mg/dL) 1.5 H AST (17 - 59 U/L) 84 H ALT (21 - 72 U/L) 71 Prot Electrophoresis Pending Total Protein (PEP) Pending Albumin (3.5 - 5.0 g/dL) 2.2 L Albumin % (PEP) Pending [id number] Pending Pskum-7-Jqutcsifg Pending Qves-9-[id number] Pending Ztzb-0-Svqcptcs Pending Gamma Globulins Pending Abnorm Protein Band 1 Pending Abnorm Protein Band 2 Pending Abnorm Protein Band 3 Pending Coagulation PT (9.4 - 12.5 SEC) 17.7 H INR (0.90 - 1.17) 1.69 H APTT (25 - 37 SEC) 59 H Cancelled Fibrinogen Activity (200 - 393 MG/DL) 452 H Hematology CBC w Diff MAN DIFF ORDERED WBC (4.8 - 10.8 /CUMM) 8.0 RBC (4.70 - 6.10 /CUMM) 4.68 L Hgb (14.0 - 18.0 G/DL) 14.9 Hct (42 - 52 %) 44.8 MCV (80.0 - 94.0 FL) 95.7 H MCH (27.0 - 31.0 PG) 31.9 H MCHC (33.0 - 37.0 G/DL) 33.3 RDW (11.5 - 14.5 %) 17.2 H Plt Count (130 - 400 /CUMM) 109 L MPV (7.4 - 10.4 FL) 8.0 Gran % (42.2 - 75.2 %) 89.0 H Lymphocytes % (20.5 - 51.1 %) 5.4 L Monocytes % (1.7 - 9.3 %) 5.3 Eosinophils % (0 - 5 %) 0.2 Basophils % (0.0 - 2.0 %) 0.1 Absolute Granulocytes (1.4 - 6.5 /CUMM) 7.1 H Segmented Neutrophils (42.2 - 75.2 %) 83 H Band Neutrophils (0.0 - 5.0 %) 8 H Absolute Lymphocytes (1.2 - 3.4 /CUMM) 0.4 L Lymphocytes (20.5 - 51.1 %) 6 L Monocytes (1.7 - 9.3 %) 3 Absolute Monocytes (0.10 - 0.60 /CUMM) 0.4 Absolute Eosinophils (0.0 - 0.7 /CUMM) 0 Absolute Basophils (0.0 - 0.2 /CUMM) 0 Nucleated RBCs (0.0 - 0.0 /100WBC) 1 H Platelet Estimate (ADEQUATE) DECREASED Poikilocytosis FEW Anisocytosis 1+ Ovalocytes FEW Immunology Complement C3 Pending Complement C4 Pending Miscellaneous Ref Lab Test Result Pending Other Body Source Fld Total RBCs Counted (%) 100 Toxicology Random Vancomycin (ug/ml) 15.8 Cancelled 08/05 1999 Coagulation APTT (25 - 37 SEC) 48 H Microbiology Date/Time Procedure - Status Source Growth 08/05 0648 Respiratory Culture - CAN LOWER RESP Cancelled: SPECIMEN NOT RECEIVED IN LABORATORY 08/05 06 Gram Stain - CAN LOWER RESP Cancelled: SPECIMEN NOT RECEIVED IN LABORATORY 08/04 161 Head/Neck Culture - CAN HEAD/NECK Cancelled: Cancelled via OE: Per Decision 08/04 161 Gram Stain - CAN HEAD/NECK Cancelled: Cancelled via OE: Per MD Decision 08/03 181 Respiratory Culture - CAN LOWER RESP Cancelled: SPECIMEN NOT RECEIVED IN LABORATORY 08/03 1816 Gram Stain - CAN LOWER RESP Cancelled: SPECIMEN NOT RECEIVED IN LABORATORY Impression/Plan Impression/Plan Impression/Plan: He is minimally responsive, mildly agitated, on high flow oxygen Lungs bilateral rhonchi Heart regular rhythm with no murmur Abdomen is obese, nontender with positive bowel sounds Extremities erythema of the left leg, with necrotic lesion on the right third toe, with open ulcerations on both legs, with bilateral lower extremity edema Eason catheter remains in place cxr worsening pulm edema Lower ext arterial IMPRESSION: Patent deep arterial systems of the bilateral lower extremities. Deep arteries of the left calf were not clearly visualized, however, left dorsal pedis artery was documented as patent. A few focal regions of mildly increased velocity as detailed above possibly suggest stenosis. Waveforms are difficult to evaluate given patient motion. NO dvt INR has improved IMPRESSION This is a 72-year-old gentleman with history of diabetes, previous heart failure diastolic, previous syncope, came into the hospital as was brought in from his home as his landlord found him on the floor. Patient apparently had had a previous fall in the snow as well. In the emergency room he was noted to have significant atrial fibrillation with tachycardia and he was hypotensive and hemodynamically unstable and had to have emergent cardioversion as his blood pressure was slow and he was unstable. Per history he has been non-compliant and has not seen any physicians in the recent past., Initially pt was conversant but slightly confused and since arriving in the ed he became less responsive and agitated requiring ativan and now appears to be worse with worsening mental status, with no fever (Apparently was lucid when he came in and he did not have any temperature and he was not complaining of a headache). Subsequently he became more confused and had to require large doses of Ativan as he was cardioverted emergently by Dr. Hitchcock. ISSUES * Recent worsening overall mental status status post fall with no clinical evidence suggestive of significant meningitis, however this may need to be ruled out. Apparently his mental status when he came in was relatively stable and patient now has decreased mentation due to delirium and Ativan, and rule out brain stem stroke (lv clot and pafib) (now with bilateral pinpoing pupils and no response to narcan), Neuro and ID on board and LP should be pursued * Sig hypoxic resp failure mainly due to Systolic chf and afib now needing diuresis * Initial unstable Rapid atrial fibrillation with significantly large intraventricular clot with PAFIb and at times flutter on heparin * Rule out stroke syndrome as he has intraventricular clot * Rule out aspiration due to reduced mental status * Resolved Lactic acidosis due to low flow state related to hypotension from his rapid atrial fibrillation, and prob sepsis as he may have aspiration pneumonia as well * Total body fluid overload with lower extremity edema with bilateral pleural effusion, atelectasis, clinical evidence suggestive of systolic and diastolic heart failure, with congested liver, with elevated bili and INR which is improving * Type II DE versus Acute coronary syndrome seen by cardiology * Bilateral pulmonary infiltrates with thick yellow-green sputum suggestive of pneumonia rule out aspiration pneumonitis * Chronic kidney disease with acute renal insufficiency, due to low flow state, improving * No DVT/ No sig arterial ischemia * Recent Worsening performance status with previous hypertension hyperlipidemia and medical noncompliance * Sig lower ext edema due and chronic venoustasis changes * Low platelets needs to be followed REC LP Stop heparin now and attempt LP COnt abx Lasix q 8 hrs if trini 40 mg Needs an NG tube and start low dose tube feeding at 20 cc jevity Keep hob up by 35 degree Rpt cxr in am Watch heart rate and dc cardizem if needed Low thereshold for intubation Periodex oral care tid Heparin antibody panel Recheck bnp GIve one more dose of vit k Cont ppi Pt continues to be critically ill
--- NOTE | 2017-08-06 16:53 | Event Note ---
Event Note Event Note: The patient underwent LP, performed by resident Anderson Cevallos. Received FFP before/ during the procedure. VSS, no bleeding noted at this point. Contacted attending Dr. Cisneros; per his instructions will resume IV heparin in 2 hours at 7 PM.
--- NOTE | 2017-08-06 19:06 | Operative Report ---
See Addendum Operative/Inv Procedure Report Surgery Date: 08/06/17 Name of Procedure: Lumbar puncture Pre-Operative Diagnosis: altered mental status Post-Operative Diagnosis: altered mental status Estimated Blood Loss: scant Surgeon/Silversmith Apprentice: Kurt Cisneros MD Anesthesia: local, 1% lidocaine w/o epi Operative/Procedure Note Note: A time-out was completed verifying correct patient, procedure, site, positioning , and special equipment if applicable. The patient was placed in the left lateral decubitus position in a semi- position with help from the nursing staff. The area was cleansed and draped in usual sterile fashion. 1% lidocaine was used anesthetize the surrounding skin area. A 20-gauge 3.5-inch spinal needle was placed in the L4-L5 interspace but unsuccessful at obtaining cerebral spinal fluid. A second attempt was performed at the L3-L4 interspace and clear cerebral spinal fluid was obtained. Four tubes were filled with 3-4 mL of CSF. These were sent for the usual tests, including 1 tube to be held for further analysis if needed. The patient tolerated the procedure well and there were no complications.
--- NOTE | 2017-08-06 20:14 | PN- Cardiology ---
Subjective Subjective: * Patient will intermittently follow commands and was able to squeeze my hand on the right side. He also opened his eyes upon verbal command. * Status post an LP today. * Sinus rhythm with PVC's * creatinine improved to 1.7 Objective Vital Signs and I&Os Vital Signs Date Time Temp Pulse Resp B/P B/P Pulse O2 O2 Flow FiO2 Mean Ox Delivery Rate / 1929 74 93 03/05 1600 97 BIPAP 60% / 1600 97.1 63 19 119/71 97 BIPAP 60% 03/ 1600 68 95 03/05 1430 64 95 03/05 1200 94 Nasal 80% Cannula 03/05 1140 94 Nasal 75% Cannula /05 0820 93 Nasal 80% Cannula 03/ 0810 73 93 03/05 0800 95 Nasal 80% Cannula 03/05 0800 97.1 71 21 110/76 95 Nasal 80% Cannula 03/05 0600 141 129/74 03/05 0600 140 28 122/63 03/05 0539 81 92 03/05 0500 96 BIPAP 60% 03/05 0400 98.5 127 30 149/106 03/05 0355 101 93 03/05 0228 101 138/60 03/05 0200 114 24 138/60 03/05 0054 94 90 03/05 0030 130 94 03/05 0000 97.9 100 28 140/68 03/05 0000 97.9 100 28 140/68 94 Nasal 55% Cannula 03/05 0000 94 Nasal 55% Cannula 03/04 2200 92 26 128/65 03/04 2144 141 124/72 03/04 2041 95 Nasal 55% Cannula Intake & Output / 1600 03/05 0800 03/05 0000 03/04 1600 03/04 0800 03/04 0000 Intake Total 717.8 1185 5249 388 6310 1396 Output Total 400 400 450 350 510 580 Balance 317.8 785 676 563 601 816 Intake, IV 717.8 1185 0775 710 1815 1396 Intake, Oral 0 0 0 0 0 0 Number 0 0 0 0 0 Bowel Movements Output, Urine 400 400 450 350 510 580 Patient 239 lb 235 lb Weight Weight Bed scale Bed scale Measurement Method Physical Exam: General: WD/obese male in NAD; obtunded Neck: no JVD, no carotid bruit Heart: RRR, no murmur Lungs: clear bilaterally Extremities: 2+ bilateral leg edema with bilateral erythema Assessment/Plan Assessment/Plan * This patient continues to be obtunded and only responds with both verbal and physical stimuli followed by repeated unresponsiveness. An EEG reportedly showed low voltage. No evidence of intracerebral bleed or trauma or CVA on his head CT. Continue to avoid all sedation. Maintain adequate oxygenation. I suspect that this patient may have had a PE despite his initially elevated INR. If so, this may have caused an hypoxic encephalopathy. Obtain a V/Q scan. * This patient has a rise in cardiac enzymes consistent with a type 2 AL. He has no chest discomfort and there are no clear ST segment elevations. Monitor his cardiac enzymes until they peak. He will not be able to tolerate nitrates due to his blood pressure which dropped after receiving NTG by EMS. Rate control will be the most effective means of limiting any myocardial ischemia. Continue aspirin 325mg daily and if evidence of a PE begin IV heparin. * Atrial fibrillation. It is unknown how long this patient had been in atrial fibrillation but due to hemodynamic instability he was cardioverted to a sinus rhythm and is hemodynamically improved. 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 When patient is more stable a NOELLE may be pursued to try and differentiate thrombus from tumor. Continue telemetry? Yes
--- NOTE | 2017-08-06 21:25 | PN- Neurology ---
Subjective Subjective: Not much change since Sunday. Still protecting own airway (now on Bipap) but still profoundly obtunded. NCHCT normal. Review of Systems: no change. Objective Vital Signs and I&Os Vital Signs Date Time Temp Pulse Resp B/P B/P Pulse O2 O2 Flow FiO2 Mean Ox Delivery Rate 08/06 2109 90 114/80 03/ 2055 93 BIPAP 55% / 1929 74 93 / 1600 97 BIPAP 60% 08/06 1600 97.1 63 19 119/71 97 BIPAP 60% / 1600 68 95 03/05 1430 64 95 03/05 1200 94 Nasal 80% Cannula / 1140 94 Nasal 75% Cannula / 0820 93 Nasal 80% Cannula / 0810 73 93 / 0800 95 Nasal 80% Cannula / 0800 97.1 71 21 110/76 95 Nasal 80% Cannula / 0600 141 129/74 03/05 0600 140 28 122/63 03/05 0539 81 92 03/05 0500 96 BIPAP 60% /05 0400 98.5 127 30 149/106 03/05 0355 101 93 03/05 0228 101 138/60 03/05 0200 114 24 138/60 03/05 0054 94 90 03/05 0030 130 94 03/05 0000 97.9 100 28 140/68 03/05 0000 97.9 100 28 140/68 94 Nasal 55% Cannula 03/05 0000 94 Nasal 55% Cannula / 2200 92 26 128/65 03/04 2144 141 124/72 Intake & Output / 1600 03/05 0800 03/05 0000 03/04 1600 03/04 0800 03/04 0000 Intake Total 717.8 1185 1810 055 3263 1396 Output Total 400 400 450 350 510 580 Balance 317.8 785 676 563 601 816 Intake, IV 717.8 1185 9297 461 3204 1396 Intake, Oral 0 0 0 0 0 0 Number 0 0 0 0 0 Bowel Movements Output, Urine 400 400 450 350 510 580 Patient 239 lb 235 lb Weight Weight Bed scale Bed scale Measurement Method Physical Exam: Obtunded, does not respond to painful stim. EOMI, small pupils, sluggish to light. No abnormal movements noted. Current Medications: Current Medications Sig/Richard Start time Last Medication Dose Route Stop Time Status Admin Albuterol Sulfate 3 ML BID 03 1000 AC 08/06 INH 2053 Albuterol Sulfate 3 ML Q4P PRN 08/04 1330 AC 08/06 INH 0832 Aspirin 300 MG 0300 08/04 0300 AC 08/06 [place] 0229 Ceftriaxone Sodium 1,000 MG DAILY@1900 08/06 1900 AC 03 IV 1801 Ceftriaxone Sodium 2,000 MG DAILY@1900 08/03 1900 DC 08/05 IV 1804 Cyanocobalamin/ 1 BAG DAILY@1600 08/04 1600 DC 08/05 Thiamine/Pyridoxine IV 1532 Dextrose/Water 1,000 ML Dextrose/Lactated 1,000 ML Q20H 08/06 1115 DC 08/06 Ringer's IV 1112 Dextrose/Lactated 1,000 ML Q13H 08/04 1500 DC 08/06 Ringer's IV 0555 Diltiazem HCl 125 MG Q24H 08/06 2230 CAN Sodium Chloride 100 ML IV Diltiazem HCl 125 MG Q12H 08/06 1030 AC 08/06 Sodium Chloride 100 ML IV 08/06 2229 0950 Diltiazem HCl 125 MG Q8H 08/05 0845 DC 08/06 Sodium Chloride 100 ML IV 08/06 1029 0859 Doxycycline Hyclate 100 MG Q12H 08/04 1315 AC 08/06 Sodium Chloride 100 ML IV 1259 Flumazenil 0.5 MG ONCE ONE 08/06 1315 DC 03/05 IV 03/ 1316 1417 Furosemide 40 MG Q8 / 2200 AC 03/ IV 2109 Furosemide 20 MG ONCE ONE 08/06 1330 DC 03/ IV 03 1331 1417 Furosemide 20 MG 1045 03/ 1045 DC 03/ IV 03/ 1046 1044 Heparin Sodium 25,000 UNIT Q24H / 1545 AC 08/06 (Porcine) IV 1125 Sodium Chloride 500 ML Magnesium Sulfate 1 GM .STK-MED ONE 08/06 1110 DC IM 08/06 1111 Magnesium Sulfate 1 GM Q2H 08/06 0945 DC 03 Dextrose/Water 100 ML IV 03/ 1344 1112 Metoprolol Tartrate 5 MG Q4 08/05 1515 AC 08/06 IV 2109 Nystatin 1 CYN BID PRN 08/03 0645 AC TOP Pantoprazole Sodium 40 MG DAILY 08/03 1000 AC 08/06 IV 0901 Phytonadione 10 MG ONCE ONE 08/06 1330 DC 08/06 SC 08/06 1331 1419 Potassium Chloride 10 MEQ Q1H 08/06 0945 CAN IV 08/06 1046 Potassium Chloride 10 MEQ Q1H 08/06 0945 DC 08/06 IV 08/06 1046 1151 Results Last 24 Hours of Lab Results: Laboratory Tests 08/06 08/06 08/06 08/06 08/06 1730 1700 1700 1700 1416 Coagulation APTT Cancelled Immunology Heparin-induced Plt Ab Pending Heparin-PF4 AB OD Pending Miscellaneous Ref Lab Test Result Pending Ref Lab Test Result Pending Ref Lab Test Result Pending Pending Ref Lab Test Result Pending Other Body Source CSF WBC (0 - 5 /CUMM) 3 CSF RBC (-0 /CUMM) 3 H CSF Comment CSF Glucose (40 - 70 mg/dL) 73 H CSF LDH (U/L) 197 CSF Total Protein (12 - 60 mg/dL) 91 H CSF Albumin Pending CSF IgG Pending IgG, Serum (MS) Pending Serum Albumin Pending CSF IgG Synth Rate MS Pending CSF/Serum IgG Index Pending Serology Herpes Simplex Source Pending HSV I DNA PCR Pending HSV II DNA PCR Pending 08/06 08/06 1330 0948 Blood Gas pH (7.35 - 7.45 PH) 7.34 L pCO2 (35 - 45 TORR) 49 H pO2 (80 - 100 TORR) 80 HCO3 (21 - 28 MEQ/L) 16 L ABG O2 Sat (Measured) (>96.0 %) 94.0 L Carboxyhemoglobin (1.5 - 5.0 %) 0.5 L O2 Concentration % 75% O2 Delivery Method HFNC, 45 FLOW Coagulation PT (9.4 - 12.5 SEC) 16.9 H INR (0.90 - 1.17) 1.54 H APTT (25 - 37 SEC) 58 H Miscellaneous Phlebotomy Draw Site LEFT RADIAL 08/06 021 Chemistry Sodium (137 - 145 mmol/L) 142 Potassium (3.5 - 5.1 mmol/L) 3.7 Chloride (98 - 107 mmol/L) 108 H Carbon Dioxide (22 - 30 mmol/L) 27 Anion Gap (5 - 16) 7 BUN (9 - 20 mg/dL) 51 H Creatinine (0.7 - 1.2 mg/dL) 1.7 H Estimated GFR (>60 ml/min) 40 L Glucose (65 - 99 mg/dL) 136 H Calcium (8.4 - 10.2 mg/dL) 8.5 Phosphorus (2.5 - 4.5 mg/dL) 3.1 Magnesium (1.6 - 2.3 mg/dL) 1.8 Total Bilirubin (0.2 - 1.3 mg/dL) 1.0 AST (17 - 59 U/L) 69 H ALT (21 - 72 U/L) 69 [id number] Pept (<125 pg/mL) 7330 H Albumin (3.5 - 5.0 g/dL) 2.0 L Coagulation APTT (25 - 37 SEC) > 120 *H Hematology CBC w Diff MAN DIFF ORDERED WBC (4.8 - 10.8 /CUMM) 6.9 RBC (4.70 - 6.10 /CUMM) 4.74 Hgb (14.0 - 18.0 G/DL) 15.1 Hct (42 - 52 %) 45.3 MCV (80.0 - 94.0 FL) 95.6 H MCH (27.0 - 31.0 PG) 31.9 H MCHC (33.0 - 37.0 G/DL) 33.4 RDW (11.5 - 14.5 %) 16.8 H Plt Count (130 - 400 /CUMM) 115 L MPV (7.4 - 10.4 FL) 8.7 Gran % (42.2 - 75.2 %) 86.0 H Lymphocytes % (20.5 - 51.1 %) 7.3 L Monocytes % (1.7 - 9.3 %) 6.5 Eosinophils % (0 - 5 %) 0.1 Basophils % (0.0 - 2.0 %) 0.1 Absolute Granulocytes (1.4 - 6.5 /CUMM) 5.9 Segmented Neutrophils (42.2 - 75.2 %) 73 Band Neutrophils (0.0 - 5.0 %) 15 H Absolute Lymphocytes (1.2 - 3.4 /CUMM) 0.5 L Lymphocytes (20.5 - 51.1 %) 5 L Monocytes (1.7 - 9.3 %) 7 Absolute Monocytes (0.10 - 0.60 /CUMM) 0.4 Absolute Eosinophils (0.0 - 0.7 /CUMM) 0 Absolute Basophils (0.0 - 0.2 /CUMM) 0 Platelet Estimate (ADEQUATE) ADEQUATE Basophilic Stippling RARE Target Cells RARE [place] Cells 1+ Elliptocytes 1+ Assessment/Plan Assessment: 72 year old with unclear suppression of mental status. Prelim EEG read does not reveal any seizure activity and NCHCT x2 did not reveal a stroke or G/W differentiation losses. LP does not reveal any infection. Plan: Will review EEG. Consider MRI brain.
--- NOTE | 2017-08-06 21:46 | ELECTROENCEPHALOGRAM REPORT ---
Electroencephalogram Report Electroencephalogram Results Date of service: 08/06/17 Attending MD: Amelia KOEHLER,Kurt Robles Manager Transition: Nancy EEG Number: [id number] Test Utilizes: 10-20 system, 21 lead 18 channel digital recording Pertinent Hx/Physical/Neuro Findings/Clin Diagnosis: 72 year old man with unexplained obtundation of mental status. Inpatient Medications: Current Medications Sig/Richard Start time Last Medication Dose Route Stop Time Status Admin Albuterol Sulfate 3 ML BID 03/ 1000 AC 08/06 INH 2053 Albuterol Sulfate 3 ML Q4P PRN 03/ 1330 AC 03 INH 0832 Aspirin 300 MG 0300 08/04 0300 AC 03 NV 0229 Ceftriaxone Sodium 1,000 MG DAILY@1900 / 1900 AC 03 IV 1801 Ceftriaxone Sodium 2,000 MG DAILY@1900 / 1900 DC 03/04 IV 1804 Cyanocobalamin/ 1 BAG DAILY@1600 / 1600 DC 03 Thiamine/Pyridoxine IV 1532 Dextrose/Water 1,000 ML Dextrose/Lactated 1,000 ML Q20H / 1115 DC 03/05 Ringer's IV 1112 Dextrose/Lactated 1,000 ML Q13H 03/ 1500 DC 03/05 Ringer's IV 0555 Diltiazem HCl 125 MG Q24H / 2230 CAN Sodium Chloride 100 ML IV Diltiazem HCl 125 MG Q12H / 1030 AC 03/05 Sodium Chloride 100 ML IV 03/ 2229 0950 Diltiazem HCl 125 MG Q8H / 0845 DC 03/05 Sodium Chloride 100 ML IV / 1029 0859 Doxycycline Hyclate 100 MG Q12H /03 1315 AC 03/05 Sodium Chloride 100 ML IV 1259 Flumazenil 0.5 MG ONCE ONE 08/06 1315 DC 03/05 IV 03/ 1316 1417 Furosemide 40 MG Q8 03/ 2200 AC 03/05 IV 2109 Furosemide 20 MG ONCE ONE / 1330 DC 03/05 IV 03/ 1331 1417 Furosemide 20 MG 1045 03/05 1045 DC 03/05 IV 03/ 1046 1044 Heparin Sodium 25,000 UNIT Q24H / 1545 AC 03 (Porcine) IV 1125 Sodium Chloride 500 ML Magnesium Sulfate 1 GM .STK-MED ONE 08/06 1110 DC IM 08/06 1111 Magnesium Sulfate 1 GM Q2H 08/06 0945 DC 08/06 Dextrose/Water 100 ML IV 08/06 1344 1112 Metoprolol Tartrate 5 MG Q4 08/05 1515 AC 08/06 IV 2109 Nystatin 1 CYN BID PRN 08/03 0645 AC TOP Pantoprazole Sodium 40 MG DAILY 08/03 1000 AC 08/06 IV 0901 Phytonadione 10 MG ONCE ONE 08/06 1330 DC 08/06 SC 08/06 1331 1419 Potassium Chloride 10 MEQ Q1H 08/06 0945 CAN IV 08/06 1046 Potassium Chloride 10 MEQ Q1H 08/06 0945 DC 08/06 IV 08/06 1046 1151 Interpretation: The recording demonstrates a loss of the normal electrographic architecture. There is diffuse generalized slowing to delta range rhythms. The average amplitude is very low in the 5-10 microvolt range. There are occasional phase reversing sharps within the right temporal field that are associated with movement and are felt to be artifactual. Impression: Abnormal recording suggestive of diffuse cerebral dysfunction and a non-specific encephalopathy.
[2017-08-07] VITALS (12 sets, daily range): BP systolic 118–167; BP diastolic 60–83
[2017-08-07 03:00] LABS: PTT 43 SEC (25-37)
[2017-08-07 05:23] LABS: ABSOLUTE BASOPHIL COUNT 0 /CUMM (0.0-0.2); ABSOLUTE EOSINOPHIL COUNT 0 /CUMM (0.0-0.7); ABSOLUTE GRANULOCYTE CT 7.9 /CUMM (1.4-6.5); ABSOLUTE LYMPH COUNT 0.5 /CUMM (1.2-3.4); ABSOLUTE MONOCYTE COUNT 0.6 /CUMM (0.10-0.60); BASOPHIL % 0 % (0.0-2.0); EOSINOPHIL % 0.1 % (0-5); GRANULOCYTE % 87.9 % (42.2-75.2); MEAN CORPUSCULAR HGB 31.9 PG (27.0-31.0); MEAN CORPUSCULAR VOLUME 96.6 FL (80.0-94.0); MEAN PLATELET VOLUME 8.6 FL (7.4-10.4); PLATELET COUNT 99 /CUMM (130-400); RBC DISTRIBUTION WIDTH 17.7 % (11.5-14.5); RED BLOOD CELL CT 4.86 /CUMM (4.70-6.10)
--- NOTE | 2017-08-07 07:53 | PN- Resident CRCU ---
Subjective HPI/CRCU Issues: Altered mental status A. fib with RVR Apical thrombus Hypoxemic respiratory failure Type II PA RICHI 24 Hour Events: LP be done yesterday evening. Overnight Patient required BiPAP. Seen and examined, opening eyes to voice. Continues to be obtunded and does obey not commands. Afebrile overnight, heart rate 60 to 70s, A. fib/aflutter Blood pressure 110-164 systolic,62-77 diastolic Currently on BiPAP 20/6 FiO2 of 60% Cardizem discontinued yesterday IV heparin restarted after LP Total balance 9594/4390 Daily intake 1287/3200 Objective Vital Signs & I&O Last 8 Hrs of Vitals and I&O: Intake & Output 08/07 1600 08/07 0800 08/07 0000 Intake Total 112 457 Output Total 1800 1000 Balance -1688 -543 Intake, Blood 291 Product Intake, IV 112 166 Intake, Oral 0 Number 0 0 Bowel Movements Output, Urine 1800 1000 Patient 236 lb Weight Weight Bed scale Measurement Method Laboratory Tests 08/07 08/07 08/07 1040 0445 0140 Chemistry Sodium (137 - 145 mmol/L) 150 H Potassium (3.5 - 5.1 mmol/L) 3.7 Chloride (98 - 107 mmol/L) 110 H Carbon Dioxide (22 - 30 mmol/L) 28 Anion Gap (5 - 16) 12 BUN (9 - 20 mg/dL) 51 H Creatinine (0.7 - 1.2 mg/dL) 1.8 H Estimated GFR (>60 ml/min) 37 L Glucose (65 - 99 mg/dL) 88 Calcium (8.4 - 10.2 mg/dL) 9.0 Phosphorus (2.5 - 4.5 mg/dL) 3.2 Magnesium (1.6 - 2.3 mg/dL) 1.9 Total Bilirubin (0.2 - 1.3 mg/dL) 1.2 AST (17 - 59 U/L) 65 H ALT (21 - 72 U/L) 66 Albumin (3.5 - 5.0 g/dL) 2.4 L Coagulation PT Pending INR Pending APTT (25 - 37 SEC) 43 H Hematology CBC w Diff MAN DIFF ORDERED WBC (4.8 - 10.8 /CUMM) 9.0 RBC (4.70 - 6.10 /CUMM) 4.86 Hgb (14.0 - 18.0 G/DL) 15.5 Hct (42 - 52 %) 47.0 MCV (80.0 - 94.0 FL) 96.6 H MCH (27.0 - 31.0 PG) 31.9 H MCHC (33.0 - 37.0 G/DL) 33.0 RDW (11.5 - 14.5 %) 17.7 H Plt Count (130 - 400 /CUMM) 99 L MPV (7.4 - 10.4 FL) 8.6 Gran % (42.2 - 75.2 %) 87.9 H Lymphocytes % (20.5 - 51.1 %) 5.0 L Monocytes % (1.7 - 9.3 %) 7.0 Eosinophils % (0 - 5 %) 0.1 Basophils % (0.0 - 2.0 %) 0 Absolute Granulocytes (1.4 - 6.5 /CUMM) 7.9 H Segmented Neutrophils (42.2 - 75.2 %) 88 H Band Neutrophils (0.0 - 5.0 %) 1 Absolute Lymphocytes (1.2 - 3.4 /CUMM) 0.5 L Lymphocytes (20.5 - 51.1 %) 5 L Monocytes (1.7 - 9.3 %) 6 Absolute Monocytes (0.10 - 0.60 /CUMM) 0.6 Absolute Eosinophils (0.0 - 0.7 /CUMM) 0 Absolute Basophils (0.0 - 0.2 /CUMM) 0 Platelet Estimate (ADEQUATE) DECREASED Polychromasia 1+ Poikilocytosis 2+ Ovalocytes 1+ Dawit Cells 1+ Other Body Source Fld Total RBCs Counted (%) 100 08/06 08/06 08/06 08/06 08/06 1730 1700 1700 1700 1416 Coagulation APTT Cancelled Immunology Heparin-induced Plt Ab Pending Heparin-PF4 AB OD Pending Miscellaneous Ref Lab Test Result Pending Ref Lab Test Result Pending Ref Lab Test Result Pending Pending Ref Lab Test Result Pending Other Body Source CSF WBC (0 - 5 /CUMM) 3 CSF RBC (-0 /CUMM) 3 H CSF Comment CSF Glucose (40 - 70 mg/dL) 73 H CSF LDH (U/L) 197 CSF Total Protein (12 - 60 mg/dL) 91 H CSF Albumin Pending CSF IgG Pending IgG, Serum (MS) Pending Serum Albumin Pending CSF IgG Synth Rate MS Pending CSF/Serum IgG Index Pending Serology Herpes Simplex Source Pending HSV I DNA PCR Pending HSV II DNA PCR Pending 08/06 1330 Blood Gas pH (7.35 - 7.45 PH) 7.34 L pCO2 (35 - 45 TORR) 49 H pO2 (80 - 100 TORR) 80 HCO3 (21 - 28 MEQ/L) 16 L ABG O2 Sat (Measured) (>96.0 %) 94.0 L Carboxyhemoglobin (1.5 - 5.0 %) 0.5 L O2 Concentration % 75% O2 Delivery Method HFNC, 45 FLOW Miscellaneous Phlebotomy Draw Site LEFT RADIAL Microbiology Date/Time Procedure - Status Source Growth 08/06 170 CSF Culture - RES CENT N S 08/06 170 Gram Stain - RES CENT N S Exam General Appearance: lethargic, moderate distress Head: normal appearance, pin point pupils Neck: supple Respiratory: quiet respiration, rhonchi Cardiovascular: regular rate/rhythm Gastrointestinal: normal bowel sounds, soft Extremities: pedal edema, swelling Skin: worsening erythema of right lower extremity Current Medications: Current Medications Sig/Richard Start time Last Medication Dose Route Stop Time Status Admin Albuterol Sulfate 3 ML BID 08/06 1000 AC 08/07 INH 1110 Albuterol Sulfate 3 ML Q4P PRN 08/04 1330 AC 08/06 INH 0832 Aspirin 300 MG 0300 08/04 0300 AC 08/07 SC 0307 Ceftriaxone Sodium 1,000 MG DAILY@1900 03 1900 AC 08/06 IV 1801 Dextrose/Water 1,000 ML .[id number] 08/07 1115 AC IV Dextrose/Water 1,000 ML .[id number] 08/07 1100 DC 08/07 IV 1053 Diltiazem HCl 125 MG Q12H 08/06 1030 DC 08/06 Sodium Chloride 100 ML IV 08/06 2229 0950 Doxycycline Hyclate 100 MG Q12H 08/04 1315 AC 08/07 Sodium Chloride 100 ML IV 1322 Furosemide 40 MG Q12 / 2200 AC IV Furosemide 40 MG Q8 08/06 2200 DC 03/ IV 0709 Heparin Sodium 25,000 UNIT Q24H / 1545 AC 08/06 (Porcine) IV 1125 Sodium Chloride 500 ML Metoprolol Tartrate 5 MG Q4 08/05 1515 AC 08/07 IV 1438 Nystatin 1 CYN BID PRN 08/03 0645 AC TOP Pantoprazole Sodium 40 MG DAILY 08/03 1000 AC 08/07 IV 1052 Potassium Chloride 10 MEQ Q1H 08/07 1300 DC 08/07 IV 08/07 1401 1437 Impression/Plan Impression/Problem List Impression: 72 year old gentleman with past medical history significant for diastolic heart failure, hypertension syncope, per family he had an PA and had a stent placement at [facility] about 7 years ago, recent fall couple of days prior to admission, brought in by ambulance for altered mental status. On dmission found to have transaminitis, increased INR, elevated troponins. Altered mental status/encephalopathy Unclear etiology at this time. Unlikely to be septic encephalopathy as he did not come in presenting with sepsis like picture or hepatic encephalopathy as his ammonia is normal along with downtrending transaminitis is transaminitis most likely secondary to congestion. DDX at this time Cerebral edema versus hypoxic-ischemic encephalopathy (during could be a cause) medication cannot be ruled out as we are still unclear at to what medications he took prior to admissions Preliminary blood cultures show no growth, no increased WBC, electrolytes within normal limits Transaminitis trended down Acetaminophen/salicycylates levels within normal CT head 3 showed no acute intracranial pathology, midline shift or hemorrhage CT abdomen and pelvis showed sigmoid diverticulosis without evidence of diverticulitis EEG done 08/06/17 revealed diffuse generalized slowing to delta range rhythms. The average amplitude is very low in the 5-10 microvolt range. Suggestive of diffuse cerebral dysfunction and a non-specific encephalopathy. ID and neuro on board appreciate recommendations Vit b12, ammonia levels wnl, UA neg for nitrates or leukocyte esterase No change in mental status noted with narcan 0.4 mg X2 doses and one time trial of flumazenil 0.5mg. LP done 08/06/17 not significant for infection will try obtain MRI when stable enough will continue to monitor closely Acute Respiratory failure afebrile overnight, no leukocytosis, bandemia impromved 8->15->1 today multifactorial (aspiration/ worsening pulm edema) ATC TRC/nebs, keep head of bed elevated BiPaP PRN, with low threshold for intubation Was placed on high flow for two hours and repeat abg done 7.42/48/79/30, continue high on high flow. Chest x-ray done 08/05/17 : persistent diffuse bilateral fluffy airspace opacities with relative sparing of the left lung apex. No interval change in diffuse bilateral airspace opacities and vascular engorgement, most consistent with alveolar pulmonary edema versus less likely diffuse pneumonia. On doxycycline 100mg q12, ceftriaxone 1g and was given two doses of vancomycin 1500mg Will continue diuresis Atrial fibrillation with Rapid ventricular rate Status post synchronized cardioversion Continue IV heparin IV Cardizem drip dc 08/06/17 A cardiogram done 08/02/2017 showed normal EF of 50% with inferoapical and apical hypokinesis and large pedicle thrombus Positive troponins peaked to 1.98 and trended down likely type II PA TFT wnl Aterial doppler showed patent deep arterial systems of the bilateral lower extremities. Deep arteries of the left calf were not clearly visualized, however , left dorsal pedis artery was documented as patent. cardiology on board appreciate recommendations Transaminitis LTF's trending down Hepatitis panel and HIV nonreactive, Hypernatremia Sodium 150 today, most likely due to diuresis and insensible losses started on d5w at 60cc, will repeat level this evening Thrombocytopenia 123->115> 99 4t SCORE = 4 intermediate probability Hit antibody 0.162, which is indeterminate, will follow up with Serotonin assay Cellulitis given two doses of vancomycin Lower extremity Dopplers ruled out DVT RICHI-improving Cr/bun 51/1.7 today likely ischemic ATN DVT: IV heparin full code guarded prognosis spoke to son this morning and gave him an update. Consent was obtained for a PICC line. Also discussed the potential need for intubation. At this time he would like all interventions including central lines and intubation done. Problem List: 1. Rapid atrial fibrillation 2. Elevated troponin 3. Hypotension Pain Ratin Tomorrow's Labs & Rationales: icu/cbc Plan DVT/Prophylaxis: pharmacological
--- NOTE | 2017-08-07 08:42 | PN- CRCU ---
Subjective HPI/Critical Care Issues: Events and data reviewed S/p LP Still obtunded Improved oxygenation Sats are improving Objective Current Medications: Current Medications Sig/Richard Start time Last Medication Dose Route Stop Time Status Admin Albuterol Sulfate 3 ML BID 08/06 1000 AC 08/06 INH 2356 Albuterol Sulfate 3 ML Q4P PRN 08/04 1330 AC 03 INH 0832 Aspirin 300 MG 0300 08/04 0300 AC 08/07 [place] 0307 Ceftriaxone Sodium 1,000 MG DAILY@1900 08/06 1900 AC 08/06 IV 1801 Ceftriaxone Sodium 2,000 MG DAILY@1900 08/03 1900 DC 08/05 IV 1804 Cyanocobalamin/ 1 BAG DAILY@1600 08/04 1600 DC 08/05 Thiamine/Pyridoxine IV 1532 Dextrose/Water 1,000 ML Dextrose/Lactated 1,000 ML Q20H 08/06 1115 DC 08/06 Ringer's IV 1112 Dextrose/Lactated 1,000 ML Q13H 08/04 1500 DC 08/06 Ringer's IV 0555 Diltiazem HCl 125 MG Q24H 08/06 2230 CAN Sodium Chloride 100 ML IV Diltiazem HCl 125 MG Q12H 08/06 1030 DC 08/06 Sodium Chloride 100 ML IV 08/06 2229 0950 Diltiazem HCl 125 MG Q8H / 0845 DC 08/06 Sodium Chloride 100 ML IV 08/06 1029 0859 Doxycycline Hyclate 100 MG Q12H 08/04 1315 AC 08/07 Sodium Chloride 100 ML IV 0215 Flumazenil 0.5 MG ONCE ONE 08/06 1315 DC 03/ IV 03 1316 1417 Furosemide 40 MG Q8 / 2200 AC 08/07 IV 0709 Furosemide 20 MG ONCE ONE 08/06 1330 DC 03/ IV 03 1331 1417 Furosemide 20 MG 1045 / 1045 DC 03/ IV 03 1046 1044 Heparin Sodium 25,000 UNIT Q24H / 1545 AC 08/06 (Porcine) IV 1125 Sodium Chloride 500 ML Magnesium Sulfate 1 GM .STK-MED ONE 08/06 1110 DC IM 08/06 1111 Magnesium Sulfate 1 GM Q2H 08/06 0945 DC 03 Dextrose/Water 100 ML IV 08/06 1344 1112 Metoprolol Tartrate 5 MG Q4 08/05 1515 AC / IV 2109 Nystatin 1 CYN BID PRN 08/03 0645 AC TOP Pantoprazole Sodium 40 MG DAILY 08/03 1000 AC 08/06 IV 0901 Phytonadione 10 MG ONCE ONE 08/06 1330 DC 08/06 SC 08/06 1331 1419 Potassium Chloride 10 MEQ Q1H 08/06 0945 CAN IV 08/06 1046 Potassium Chloride 10 MEQ Q1H 08/06 0945 DC 08/06 IV 08/06 1046 1151 Vital Signs & I&O Last 24 Hrs of Vitals and I&O: Vital Signs Date Time Temp Pulse Resp B/P B/P Pulse O2 O2 Flow FiO2 Mean Ox Delivery Rate 08/07 0800 97.2 89 24 138/70 98 BIPAP 60% / 0751 88 98 / 0709 79 142/71 03/ 0600 97.2 90 28 164/80 03/06 0538 83 95 03/06 0400 97.2 84 36 148/77 03/06 0400 95 BIPAP 60% 03/06 0300 76 132/75 03/06 0227 85 95 03/06 0200 97.1 84 26 118/70 03/06 0058 87 95 03/06 0000 97.1 76 25 128/70 03/06 0000 88 BIPAP 70% 03/06 0000 97.1 76 25 128/70 88 BIPAP 70% 03/06 0000 73 88 03/05 2220 80 94 03/05 2200 97.2 72 24 107/56 03/05 2109 90 114/80 03/05 2055 93 BIPAP 55% /05 1999 97.2 72 24 115/69 03/05 1999 96 BIPAP 55% 03/05 1929 74 93 03/05 1600 97 BIPAP 60% 03/05 1600 97.1 63 19 119/71 97 BIPAP 60% 03/05 1600 68 95 03/05 1430 64 95 03/05 1200 94 Nasal 80% Cannula / 1140 94 Nasal 75% Cannula Intake & Output / 1600 03/06 0800 03/06 0000 Intake Total 112 457 Output Total 1800 1000 Balance -1688 -543 Intake, Blood 291 Product Intake, IV 112 166 Intake, Oral 0 Number 0 0 Bowel Movements Output, Urine 1800 1000 Patient 236 lb Weight Weight Bed scale Measurement Method Impression/Plan Impression/Plan Impression/Plan: He is minimally responsive, mildly agitated, on bipap Lungs bilateral rhonchi Heart regular rhythm with no murmur Abdomen is obese, nontender with positive bowel sounds Extremities erythema of the left leg, with necrotic lesion on the right third toe, with open ulcerations on both legs, with bilateral lower extremity edema Eason catheter remains in place cxr worsening pulm edema from yesterday Lower ext arterial IMPRESSION: Patent deep arterial systems of the bilateral lower extremities. Deep arteries of the left calf were not clearly visualized, however, left dorsal pedis artery was documented as patent. A few focal regions of mildly increased velocity as detailed above possibly suggest stenosis. Waveforms are difficult to evaluate given patient motion. NO dvt INR has improved IMPRESSION This is a 72-year-old gentleman with history of diabetes, previous heart failure diastolic, previous syncope, came into the hospital as was brought in from his home as his landlord found him on the floor. Patient apparently had had a previous fall in the snow as well. In the emergency room he was noted to have significant atrial fibrillation with tachycardia and he was hypotensive and hemodynamically unstable and had to have emergent cardioversion as his blood pressure was slow and he was unstable. Per history he has been non-compliant and has not seen any physicians in the recent past., Initially pt was conversant but slightly confused and since arriving in the ed he became less responsive and agitated requiring ativan and now appears to be worse with worsening mental status, with no fever (Apparently was lucid when he came in and he did not have any temperature and he was not complaining of a headache). Subsequently he became more confused and had to require large doses of Ativan as he was cardioverted emergently by Dr. Hitchcock. ISSUES * Recent worsening overall mental status status post fall with no clinical evidence suggestive of significant meningitis, LP not consistant with infection. Apparently his mental status when he came in was relatively stable and patient now has decreased mentation due to delirium and Ativan, and rule out brain stem stroke (lv clot and pafib) (now with bilateral pinpoing pupils and no response to narcan or flumazanil), Neuro and ID on board * Sig hypoxic resp failure mainly due to Systolic chf and afib now needing diuresis * Initial unstable Rapid atrial fibrillation with significantly large intraventricular clot with PAFIb and at times flutter on heparin * Rule out stroke syndrome as he has intraventricular clot * Rule out aspiration due to reduced mental status * Resolved Lactic acidosis due to low flow state related to hypotension from his rapid atrial fibrillation, and prob sepsis as he may have aspiration pneumonia as well * Resolving Total body fluid overload with lower extremity edema with bilateral pleural effusion, atelectasis, clinical evidence suggestive of systolic and diastolic heart failure, with congested liver, with elevated bili and INR which is improving * Type II CT versus Acute coronary syndrome seen by cardiology * Bilateral pulmonary infiltrates with thick yellow-green sputum suggestive of pneumonia rule out aspiration pneumonitis * Chronic kidney disease with acute renal insufficiency, appears to be improving * No DVT/ No sig arterial ischemia * Recent Worsening performance status with previous hypertension hyperlipidemia and medical noncompliance * Sig lower ext edema due and chronic venoustasis changes * Low platelets needs to be followed and prob anticoag needs to be changed * Unlikely pe but cannot rule out and not a candidate for vq and pt anticoag anyway REC High flow oxygen NG tube today IF continues to be worse needs intubation COnt abx Reduce lasix to q12 Keep hob up by 35 degree Rpt cxr in am Low thershold for intubation PICC line today Periodex oral care tid Heparin antibody panel pending and check platelets this pm and if still low needs to change to argatroban drip (ask pharmacy for dosing) HOLd off on vq not going to be clinically change the mgt D5 w at 60 cc per flow Cont ppi Pt continues to be critically ill
--- NOTE | 2017-08-07 10:31 | RADIOLOGY REPORT ---
EXAMINATION: XR PORTABLE CHEST CLINICAL INFORMATION: Obtundation, requiring when necessary BiPAP. Comparison from previous exam. COMPARISON: Several prior chest x-rays, most recent of which is dated 08/06/2017. TECHNIQUE: Portable AP semierect view of the chest was obtained. FINDINGS: Multiple EKG leads overlie the chest. The cardiomediastinal silhouette is enlarged. There are persistent diffuse bilateral fluffy airspace opacities with relative sparing of the left lung apex. Findings are similar to the previous exam allowing for differences in technique and may be related to diffuse alveolar edema versus diffuse pneumonia. There is a persistent small left pleural effusion noted. There may be a trace right-sided pleural effusion as well. No pneumothorax is seen. Bony structures are unremarkable. IMPRESSION: 1. No interval change in diffuse bilateral airspace opacities and vascular engorgement, most consistent with alveolar pulmonary edema versus less likely diffuse pneumonia. 2. No significant change in small left-sided pleural effusion. Trace right-sided pleural effusion may also be present.
[2017-08-07 12:06] LABS: PT 15.9 SEC (9.4-12.5)
[2017-08-07 12:35] LABS: HEPARIN INDUCED PLATELET AB NEGATIVE (NEGATIVE)
--- NOTE | 2017-08-07 12:49 | PN- Nephrology ---
Assessment/Plan Nephrology Assessment: RICHI - Likely ischemic ATN in the setting of A fib with RVR/hypotension - improving (not clear exactly what his baseline Cr is - got down to 1.1 in 2011). No evidence of obstruction on Renal US. Volume expanded on exam - does not need fluid. Doubt GN given minimal proteinuria although complements pending. Volume overload - seems to be tolerating diuresis - on high flow nasal cannula - I think that we can continue. Hypernatremia - 2/2 decreased free water intake - either needs an NG tube with free water boluses or a D5W gtt. Altered mental status - Underlying etiology still remains unclear with an essentially negative work-up thus far. Suggestion: -OK to diurese - 40mg IV lasix daily -f/u complements -Either free water boluses through NG tube - 300cc q4 or start D5W at 75cc/hr Please call [phone] with ?'s Subjective Subjective: Pt remains essentially unresponsive - will open eyes a bit to voice SCr 1.8 On high flow nasal cannula - has gotten diuretics the last couple of days; chest x-ray suggestive of pulm edema Na 150 Remains afebrile with no positive micro - s/p LP - ID following Objective Vital Signs and I&Os Vital Signs Date Time Temp Pulse Resp B/P B/P Pulse O2 O2 Flow FiO2 Mean Ox Delivery Rate 03/ 1200 98.0 95 20 132/60 03/06 1200 94 Nasal 65% Cannula 03/06 1135 97 Nasal 65% Cannula /06 1120 97 BIPAP 50% 03/06 1114 86 97 03/06 1100 95 146/64 03/06 1000 88 24 151/74 03/06 0800 97.2 89 24 155/81 03/06 0800 97.2 89 24 138/70 98 BIPAP 60% 03/06 0800 98 BIPAP 60% 03/06 0751 88 98 03/06 0709 79 142/71 03/06 0600 97.2 90 28 164/80 03/06 0538 83 95 03/06 0400 97.2 84 36 148/77 03/06 0400 95 BIPAP 60% 03/06 0300 76 132/75 03/06 0227 85 95 03/06 0200 97.1 84 26 118/70 03/06 0058 87 95 03/06 0000 97.1 76 25 128/70 03/06 0000 88 BIPAP 70% 03/06 0000 97.1 76 25 128/70 88 BIPAP 70% /06 0000 73 88 03/05 0 80 94 03/0 97.2 72 24 107/56 03/05 9 90 114/80 08/06 2054 93 BIPAP 55% /1999 97.2 72 24 115/69 /1999 96 BIPAP 55% / 1929 74 93 03/1599 97 BIPAP 60% /1599 97.1 63 19 119/71 97 BIPAP 60% /05 1600 68 95 03/05 1430 64 95 Intake & Output / 1600 / 0400 / 1600 / 0400 / 1600 / 0400 Intake Total 935 382 7568.8 1122023 1396 Output Total 1800 1000 800 450 860 580 Balance -1688 -543 1102.8 676 1164 816 Intake, Blood 291 Product Intake, IV 471 391 4456.8 1126 2023 1396 Intake, Oral 0 0 0 0 0 Number 0 0 0 0 0 0 Bowel Movements Output, Urine 1800 1000 800 450 860 580 Patient 236 lb 239 lb 235 lb Weight Weight Bed scale Bed scale Bed scale Measurement Method Physical Exam: Gen - ill appearing, minimally responsive HEENT - supple CV - RRR, no m/r/g Chest - coarse breath sounds anteriorly Abd - soft, NTND Ext - 1+ edema with lower ext erythema and blackened patches Neuro - will open eyes a bit to voice but otherwise unresponsive Current Medications: Current Medications Sig/Richard Start time Last Medication Dose Route Stop Time Status Admin Albuterol Sulfate 3 ML BID 08/06 1000 AC 08/07 INH 1110 Albuterol Sulfate 3 ML Q4P PRN / 1330 AC 03/ INH 0832 Aspirin 300 MG 0300 08/04 0300 AC 03/ [place] 0307 Ceftriaxone Sodium 1,000 MG DAILY@1900 08/06 1900 AC 08/06 IV 1801 Dextrose/Water 1,000 ML .[id number] / 1115 AC IV Dextrose/Water 1,000 ML .[id number] / 1100 DC 03/ IV 1053 Diltiazem HCl 125 MG Q24H 08/06 2230 CAN Sodium Chloride 100 ML IV Diltiazem HCl 125 MG Q12H 08/06 1030 DC 08/06 Sodium Chloride 100 ML IV 08/06 2229 0950 Doxycycline Hyclate 100 MG Q12H 08/04 1315 AC 08/07 Sodium Chloride 100 ML IV 0215 Flumazenil 0.5 MG ONCE ONE 08/06 1315 DC 08/06 IV 08/06 1316 1417 Furosemide 40 MG Q12 08/07 2200 AC IV Furosemide 40 MG Q8 08/06 2200 DC 08/07 IV 0709 Furosemide 20 MG ONCE ONE 08/06 1330 DC 08/06 IV 08/06 1331 1417 Heparin Sodium 25,000 UNIT Q24H 08/02 1545 AC 08/06 (Porcine) IV 1125 Sodium Chloride 500 ML Magnesium Sulfate 1 GM Q2H 08/06 0945 DC 08/06 Dextrose/Water 100 ML IV 08/06 1344 1112 Metoprolol Tartrate 5 MG Q4 08/05 1515 AC 08/07 IV 1100 Nystatin 1 CYN BID PRN 08/03 0645 AC TOP Pantoprazole Sodium 40 MG DAILY 08/03 1000 AC 08/07 IV 1052 Phytonadione 10 MG ONCE ONE 08/06 1330 DC 08/06 SC 08/06 1331 1419 Results Pertinent Lab Results: Laboratory Tests 08/07 08/07 08/07 1040 0445 0140 Chemistry Sodium (137 - 145 mmol/L) 150 H Potassium (3.5 - 5.1 mmol/L) 3.7 Chloride (98 - 107 mmol/L) 110 H Carbon Dioxide (22 - 30 mmol/L) 28 Anion Gap (5 - 16) 12 BUN (9 - 20 mg/dL) 51 H Creatinine (0.7 - 1.2 mg/dL) 1.8 H Estimated GFR (>60 ml/min) 37 L Glucose (65 - 99 mg/dL) 88 Calcium (8.4 - 10.2 mg/dL) 9.0 Phosphorus (2.5 - 4.5 mg/dL) 3.2 Magnesium (1.6 - 2.3 mg/dL) 1.9 Total Bilirubin (0.2 - 1.3 mg/dL) 1.2 AST (17 - 59 U/L) 65 H ALT (21 - 72 U/L) 66 Albumin (3.5 - 5.0 g/dL) 2.4 L Coagulation PT (9.4 - 12.5 SEC) 15.9 H INR (0.90 - 1.17) 1.45 H APTT (25 - 37 SEC) 43 H Hematology CBC w Diff MAN DIFF ORDERED WBC (4.8 - 10.8 /CUMM) 9.0 RBC (4.70 - 6.10 /CUMM) 4.86 Hgb (14.0 - 18.0 G/DL) 15.5 Hct (42 - 52 %) 47.0 MCV (80.0 - 94.0 FL) 96.6 H MCH (27.0 - 31.0 PG) 31.9 H MCHC (33.0 - 37.0 G/DL) 33.0 RDW (11.5 - 14.5 %) 17.7 H Plt Count (130 - 400 /CUMM) 99 L MPV (7.4 - 10.4 FL) 8.6 Gran % (42.2 - 75.2 %) 87.9 H Lymphocytes % (20.5 - 51.1 %) 5.0 L Monocytes % (1.7 - 9.3 %) 7.0 Eosinophils % (0 - 5 %) 0.1 Basophils % (0.0 - 2.0 %) 0 Absolute Granulocytes (1.4 - 6.5 /CUMM) 7.9 H Segmented Neutrophils (42.2 - 75.2 %) 88 H Band Neutrophils (0.0 - 5.0 %) 1 Absolute Lymphocytes (1.2 - 3.4 /CUMM) 0.5 L Lymphocytes (20.5 - 51.1 %) 5 L Monocytes (1.7 - 9.3 %) 6 Absolute Monocytes (0.10 - 0.60 /CUMM) 0.6 Absolute Eosinophils (0.0 - 0.7 /CUMM) 0 Absolute Basophils (0.0 - 0.2 /CUMM) 0 Platelet Estimate (ADEQUATE) DECREASED Polychromasia 1+ Poikilocytosis 2+ Ovalocytes 1+ [place] Cells 1+ Other Body Source Fld Total RBCs Counted (%) 100 08/06 08/06 08/06 08/06 08/06 1730 1700 1700 1700 1416 Coagulation APTT Cancelled Immunology Heparin-induced Plt Ab Pending Heparin-PF4 AB OD Pending Miscellaneous Ref Lab Test Result Pending Ref Lab Test Result Pending Ref Lab Test Result Pending Pending Ref Lab Test Result Pending Other Body Source CSF WBC (0 - 5 /CUMM) 3 CSF RBC (-0 /CUMM) 3 H CSF Comment CSF Glucose (40 - 70 mg/dL) 73 H CSF LDH (U/L) 197 CSF Total Protein (12 - 60 mg/dL) 91 H CSF Albumin Pending CSF IgG Pending IgG, Serum (MS) Pending Serum Albumin Pending CSF IgG Synth Rate MS Pending CSF/Serum IgG Index Pending Serology Herpes Simplex Source Pending HSV I DNA PCR Pending HSV II DNA PCR Pending 08/06 08/06 1330 0948 Blood Gas pH (7.35 - 7.45 PH) 7.34 L pCO2 (35 - 45 TORR) 49 H pO2 (80 - 100 TORR) 80 HCO3 (21 - 28 MEQ/L) 16 L ABG O2 Sat (Measured) (>96.0 %) 94.0 L Carboxyhemoglobin (1.5 - 5.0 %) 0.5 L O2 Concentration % 75% O2 Delivery Method HFNC, 45 FLOW Coagulation PT (9.4 - 12.5 SEC) 16.9 H INR (0.90 - 1.17) 1.54 H APTT (25 - 37 SEC) 58 H Miscellaneous Phlebotomy Draw Site LEFT RADIAL 08/06 08/05 2833 9706 Chemistry Sodium (137 - 145 mmol/L) 142 Potassium (3.5 - 5.1 mmol/L) 3.7 Chloride (98 - 107 mmol/L) 108 H Carbon Dioxide (22 - 30 mmol/L) 27 Anion Gap (5 - 16) 7 BUN (9 - 20 mg/dL) 51 H Creatinine (0.7 - 1.2 mg/dL) 1.7 H Estimated GFR (>60 ml/min) 40 L Glucose (65 - 99 mg/dL) 136 H Calcium (8.4 - 10.2 mg/dL) 8.5 Phosphorus (2.5 - 4.5 mg/dL) 3.1 Magnesium (1.6 - 2.3 mg/dL) 1.8 Total Bilirubin (0.2 - 1.3 mg/dL) 1.0 AST (17 - 59 U/L) 69 H ALT (21 - 72 U/L) 69 Oho-L-Tgqozyryaff Pept (<125 pg/mL) 7330 H Albumin (3.5 - 5.0 g/dL) 2.0 L Coagulation APTT (25 - 37 SEC) > 120 *H 34 Hematology CBC w Diff MAN DIFF ORDERED NO MAN DIFF REQ WBC (4.8 - 10.8 /CUMM) 6.9 8.3 RBC (4.70 - 6.10 /CUMM) 4.74 4.76 Hgb (14.0 - 18.0 G/DL) 15.1 14.9 Hct (42 - 52 %) 45.3 46.2 MCV (80.0 - 94.0 FL) 95.6 H 97.0 H MCH (27.0 - 31.0 PG) 31.9 H 31.3 H MCHC (33.0 - 37.0 G/DL) 33.4 32.3 L RDW (11.5 - 14.5 %) 16.8 H 17.9 H Plt Count (130 - 400 /CUMM) 115 L 123 L MPV (7.4 - 10.4 FL) 8.7 8.3 Gran % (42.2 - 75.2 %) 86.0 H 88.1 H Lymphocytes % (20.5 - 51.1 %) 7.3 L 5.5 L Monocytes % (1.7 - 9.3 %) 6.5 6.1 Eosinophils % (0 - 5 %) 0.1 0.1 Basophils % (0.0 - 2.0 %) 0.1 0.2 Absolute Granulocytes (1.4 - 6.5 /CUMM) 5.9 7.3 H Segmented Neutrophils (42.2 - 75.2 %) 73 Band Neutrophils (0.0 - 5.0 %) 15 H Absolute Lymphocytes (1.2 - 3.4 /CUMM) 0.5 L 0.5 L Lymphocytes (20.5 - 51.1 %) 5 L Monocytes (1.7 - 9.3 %) 7 Absolute Monocytes (0.10 - 0.60 /CUMM) 0.4 0.5 Absolute Eosinophils (0.0 - 0.7 /CUMM) 0 0 Absolute Basophils (0.0 - 0.2 /CUMM) 0 0 Platelet Estimate (ADEQUATE) ADEQUATE Basophilic Stippling RARE Target Cells RARE [place] Cells 1+ Elliptocytes 1+ 08/05 08/05 08/05 1200 1105 0530 Chemistry Sodium Cancelled Potassium Cancelled Chloride Cancelled Carbon Dioxide Cancelled Anion Gap Cancelled BUN Cancelled Creatinine Cancelled Glucose Cancelled Calcium Cancelled Phosphorus Cancelled Magnesium Cancelled Total Bilirubin Cancelled AST Cancelled ALT Cancelled Prot Electrophoresis Pending Total Protein (PEP) Pending Albumin Cancelled Albumin % (PEP) Pending Haxjd-3-Kjgxyazel Pending Djphl-8-Aybdmrcan Pending Dtem-3-Ibvhcine Pending Kyaj-5-Hzbrisia Pending Gamma Globulins Pending Abnorm Protein Band 1 Pending Abnorm Protein Band 2 Pending Abnorm Protein Band 3 Pending Coagulation APTT (25 - 37 SEC) 102 *H 08/05 08/05 08/04 0530 0500 2000 Chemistry Sodium (137 - 145 mmol/L) 140 Potassium (3.5 - 5.1 mmol/L) 3.4 L Chloride (98 - 107 mmol/L) 104 Carbon Dioxide (22 - 30 mmol/L) 28 Anion Gap (5 - 16) 8 BUN (9 - 20 mg/dL) 61 H Creatinine (0.7 - 1.2 mg/dL) 1.8 H Estimated GFR (>60 ml/min) 37 L Glucose (65 - 99 mg/dL) 136 H Calcium (8.4 - 10.2 mg/dL) 8.9 Phosphorus (2.5 - 4.5 mg/dL) 3.4 Magnesium (1.6 - 2.3 mg/dL) 2.0 Total Bilirubin (0.2 - 1.3 mg/dL) 1.5 H AST (17 - 59 U/L) 84 H ALT (21 - 72 U/L) 71 Albumin (3.5 - 5.0 g/dL) 2.2 L Coagulation PT (9.4 - 12.5 SEC) 17.7 H INR (0.90 - 1.17) 1.69 H APTT (25 - 37 SEC) 59 H Cancelled 48 H Fibrinogen Activity (200 - 393 MG/DL) 452 H Hematology CBC w Diff MAN DIFF ORDERED WBC (4.8 - 10.8 /CUMM) 8.0 RBC (4.70 - 6.10 /CUMM) 4.68 L Hgb (14.0 - 18.0 G/DL) 14.9 Hct (42 - 52 %) 44.8 MCV (80.0 - 94.0 FL) 95.7 H MCH (27.0 - 31.0 PG) 31.9 H MCHC (33.0 - 37.0 G/DL) 33.3 RDW (11.5 - 14.5 %) 17.2 H Plt Count (130 - 400 /CUMM) 109 L MPV (7.4 - 10.4 FL) 8.0 Gran % (42.2 - 75.2 %) 89.0 H Lymphocytes % (20.5 - 51.1 %) 5.4 L Monocytes % (1.7 - 9.3 %) 5.3 Eosinophils % (0 - 5 %) 0.2 Basophils % (0.0 - 2.0 %) 0.1 Absolute Granulocytes (1.4 - 6.5 /CUMM) 7.1 H Segmented Neutrophils (42.2 - 75.2 %) 83 H Band Neutrophils (0.0 - 5.0 %) 8 H Absolute Lymphocytes (1.2 - 3.4 /CUMM) 0.4 L Lymphocytes (20.5 - 51.1 %) 6 L Monocytes (1.7 - 9.3 %) 3 Absolute Monocytes (0.10 - 0.60 /CUMM) 0.4 Absolute Eosinophils (0.0 - 0.7 /CUMM) 0 Absolute Basophils (0.0 - 0.2 /CUMM) 0 Nucleated RBCs (0.0 - 0.0 /100WBC) 1 H Platelet Estimate (ADEQUATE) DECREASED Poikilocytosis FEW Anisocytosis 1+ Ovalocytes FEW Immunology Complement C3 Pending Complement C4 Pending Miscellaneous Ref Lab Test Result Pending Other Body Source Fld Total RBCs Counted (%) 100 Toxicology Random Vancomycin (ug/ml) 15.8 Cancelled 08/04 1234 Coagulation APTT (25 - 37 SEC) 102 *H Imaging/Other Studies: EXAM TYPE: RAD - XRY-PORTABLE CHEST XRAY EXAMINATION: XR PORTABLE CHEST CLINICAL INFORMATION: Obtundation, requiring when necessary BiPAP. Comparison from previous exam. COMPARISON: Several prior chest x-rays, most recent of which is dated 08/06/2017. TECHNIQUE: Portable AP semierect view of the chest was obtained. FINDINGS: Multiple EKG leads overlie the chest. The cardiomediastinal silhouette is enlarged. There are persistent diffuse bilateral fluffy airspace opacities with relative sparing of the left lung apex. Findings are similar to the previous exam allowing for differences in technique and may be related to diffuse alveolar edema versus diffuse pneumonia. There is a persistent small left pleural effusion noted. There may be a trace right-sided pleural effusion as well. No pneumothorax is seen. Bony structures are unremarkable. IMPRESSION: 1. No interval change in diffuse bilateral airspace opacities and vascular engorgement, most consistent with alveolar pulmonary edema versus less likely diffuse pneumonia. 2. No significant change in small left-sided pleural effusion. Trace right-sided pleural effusion may also be present. Renal US FINDINGS: RIGHT KIDNEY: There is neither hydronephrosis nor nephrolithiasis. There is mild diffuse renal cortical thinning. The right kidney measures 12.3 cm. LEFT KIDNEY: There is neither hydronephrosis nor nephrolithiasis. There is mild diffuse renal cortical thinning. The left kidney measures 8.2 cm. BLADDER: The urinary bladder is empty. There is no demonstrable wall thickening. There is no pelvic free fluid. IMPRESSION: Neither hydronephrosis nor nephrolithiasis. Bilateral renal cortical thinning. TTE CONCLUSIONS 1. Low normal EF of 50% with inferoapical and apical hypokinesis. 2. Large apical thrombus. 3. Moderate left ventricular hypertrophy. 4. Moderate left atrial enlargement. 5. Mild mitral regurgitation. 6. Mild tricuspid regurgitation. 7. Mild pulmonary hypertension. 8. Small pericardial effusion.
[2017-08-07 13:05] LABS: PTT 56 SEC (25-37)
--- NOTE | 2017-08-07 15:00 | RADIOLOGY REPORT ---
EXAMINATION: XR PORTABLE CHEST CLINICAL INFORMATION: NG tube placement. Acute respiratory failure COMPARISON: Chest x-ray 08/07/2017, 6:02 AM TECHNIQUE: Portable frontal view of the chest was obtained. 2:23 PM FINDINGS: Nasogastric tube in stomach. The heart size is enlarged. There is central pulmonary vascular congestion of congestive heart failure but is similar in severity to the prior chest x-ray this a.m. The left diaphragm is silhouetted from persistent retrocardiac density of infiltrate and/or atelectasis and left pleural effusion similar prior chest x-ray. IMPRESSION: 1. Nasogastric tube in stomach. 2. Persistent congestive heart failure. Persistent dense left lung base.
--- NOTE | 2017-08-07 16:23 | PN- Infect Dx ---
Subjective Subjective: Afebrile. He is unable to provide any history. Objective Last 24 Hrs of Vital Signs/I&O Vital Signs Date Time Temp Pulse Resp B/P B/P Pulse O2 O2 Flow FiO2 Mean Ox Delivery Rate 03/ 1438 98 167/83 03/06 1400 98 24 167/83 03/06 1200 98.0 95 20 132/60 03/06 1200 94 Nasal 65% Cannula 03/ 1135 97 Nasal 65% Cannula 03/ 1120 97 BIPAP 50% 03/ 1114 86 97 03/06 1100 95 146/64 03/06 1000 88 24 151/74 03/06 0800 97.2 89 24 155/81 03/06 0800 97.2 89 24 138/70 98 BIPAP 60% 03/06 0800 98 BIPAP 60% 03/06 0751 88 98 03/06 0709 79 142/71 03/06 0600 97.2 90 28 164/80 03/06 0538 83 95 03/06 0400 97.2 84 36 148/77 03/06 0400 95 BIPAP 60% 03/06 0300 76 132/75 03/06 0227 85 95 03/06 0200 97.1 84 26 118/70 03/06 0058 87 95 03/06 0000 97.1 76 25 128/70 03/06 0000 88 BIPAP 70% 03/06 0000 97.1 76 25 128/70 88 BIPAP 70% 03/06 0000 73 88 03/05 2220 80 94 03/05 2200 97.2 72 24 107/56 03/05 9 90 114/80 03/05 2054 93 BIPAP 55% 03/05 1999 97.2 72 24 115/69 03/05 1999 96 BIPAP 55% 03/05 1929 74 93 Intake & Output 03/06 1600 03/06 0800 03/06 0000 Intake Total 490 112 457 Output Total 2200 1800 1000 Balance -0908 -1436 -543 Intake, Blood 291 Product Intake, IV 490 112 166 Intake, Oral 0 Number 0 0 Bowel Movements Output, Urine 2200 1800 1000 Patient 236 lb Weight Weight Bed scale Measurement Method Physical Exam Other Physical Findings: He is slightly more responsive but nonverbal Lungs scattered rhonchi Heart irregular rhythm with no murmur Abdomen is obese, soft, nontender positive bowel sounds Extremities bilateral lower extremity edema, left greater than right, with significant erythema of the left leg with ulcerations noted Eason catheter remains in place Results Last 24 Hours of Lab Results: Laboratory Tests 08/07 08/07 08/07 1300 1040 0600 Blood Gas pH (7.35 - 7.45 PH) 7.42 pCO2 (35 - 45 TORR) 48 H pO2 (80 - 100 TORR) 79 L HCO3 (21 - 28 MEQ/L) 30 H ABG O2 Sat (Measured) (>96.0 %) 96.0 P-50 (Temp Corrected) YES Carboxyhemoglobin (1.5 - 5.0 %) 0 L O2 Concentration % 65% Temperature (97.0 - 100.0 FARH) 98.0 O2 Delivery Method HFNC Coagulation PT (9.4 - 12.5 SEC) 15.9 H INR (0.90 - 1.17) 1.45 H APTT (25 - 37 SEC) 56 H Miscellaneous Ref Lab Test Result Pending Phlebotomy Draw Site RIGHT RADIAL 08/07 08/07 08/07 0445 0400 0140 Chemistry Sodium (137 - 145 mmol/L) Cancelled 150 H Potassium (3.5 - 5.1 mmol/L) Cancelled 3.7 Chloride (98 - 107 mmol/L) Cancelled 110 H Carbon Dioxide (22 - 30 mmol/L) Cancelled 28 Anion Gap (5 - 16) Cancelled 12 BUN (9 - 20 mg/dL) Cancelled 51 H Creatinine (0.7 - 1.2 mg/dL) Cancelled 1.8 H Estimated GFR (>60 ml/min) 37 L BUN/Creatinine Ratio Cancelled Glucose (65 - 99 mg/dL) 88 Calcium (8.4 - 10.2 mg/dL) 9.0 Phosphorus (2.5 - 4.5 mg/dL) 3.2 Magnesium (1.6 - 2.3 mg/dL) 1.9 Total Bilirubin (0.2 - 1.3 mg/dL) 1.2 AST (17 - 59 U/L) 65 H ALT (21 - 72 U/L) 66 Albumin (3.5 - 5.0 g/dL) 2.4 L Coagulation APTT (25 - 37 SEC) 43 H Hematology CBC w Diff MAN DIFF ORDERED Cancelled WBC (4.8 - 10.8 /CUMM) 9.0 Cancelled RBC (4.70 - 6.10 /CUMM) 4.86 Cancelled Hgb (14.0 - 18.0 G/DL) 15.5 Cancelled Hct (42 - 52 %) 47.0 Cancelled MCV (80.0 - 94.0 FL) 96.6 H Cancelled MCH (27.0 - 31.0 PG) 31.9 H Cancelled MCHC (33.0 - 37.0 G/DL) 33.0 Cancelled RDW (11.5 - 14.5 %) 17.7 H Cancelled Plt Count (130 - 400 /CUMM) 99 L Cancelled MPV (7.4 - 10.4 FL) 8.6 Cancelled Gran % (42.2 - 75.2 %) 87.9 H Lymphocytes % (20.5 - 51.1 %) 5.0 L Monocytes % (1.7 - 9.3 %) 7.0 Eosinophils % (0 - 5 %) 0.1 Basophils % (0.0 - 2.0 %) 0 Absolute Granulocytes (1.4 - 6.5 /CUMM) 7.9 H Segmented Neutrophils (42.2 - 75.2 %) 88 H Band Neutrophils (0.0 - 5.0 %) 1 Absolute Lymphocytes (1.2 - 3.4 /CUMM) 0.5 L Lymphocytes (20.5 - 51.1 %) 5 L Monocytes (1.7 - 9.3 %) 6 Absolute Monocytes (0.10 - 0.60 /CUMM) 0.6 Absolute Eosinophils (0.0 - 0.7 /CUMM) 0 Absolute Basophils (0.0 - 0.2 /CUMM) 0 Platelet Estimate (ADEQUATE) DECREASED Polychromasia 1+ Poikilocytosis 2+ Ovalocytes 1+ [place] Cells 1+ Other Body Source Fld Total RBCs Counted (%) 100 03/05 03/05 03/ 03/05 1730 1700 1700 1700 Coagulation APTT Cancelled Miscellaneous Ref Lab Test Result Pending Ref Lab Test Result Pending Ref Lab Test Result Pending Pending Ref Lab Test Result Pending Other Body Source CSF WBC (0 - 5 /CUMM) 3 CSF RBC (-0 /CUMM) 3 H CSF Comment CSF Glucose (40 - 70 mg/dL) 73 H CSF LDH (U/L) 197 CSF Total Protein (12 - 60 mg/dL) 91 H CSF Albumin Pending CSF IgG Pending IgG, Serum (MS) Pending Serum Albumin Pending CSF IgG Synth Rate MS Pending CSF/Serum IgG Index Pending Serology Herpes Simplex Source Pending HSV I DNA PCR Pending HSV II DNA PCR Pending Last 24 Hours of Zackery Results: CSF culture August 06 negative Recent Imaging Studies: Chest x-ray August 07 reveals diffuse bilateral airspace opacities and vascular engorgement Assessment/Plan ID Impression: Condition poor, with mental status remaining abnormal, for unclear reasons, with his lumbar puncture negative for any evidence for infection. He does remain afebrile with a normal white blood cell count on Ceftriaxone and Doxycycline, now Day 5 of treatment for possible sepsis, with possible sources including the lungs, though his chest x-ray is more suggestive of pulmonary edema, or cellulitis, though suspect that his lower extremity findings are chronic, and with his blood and urine cultures negative. Suggestion: 1. Further management of his fluid status per Renal 2. Discontinue Ceftriaxone and Doxycycline and follow off antibiotics
--- NOTE | 2017-08-07 17:17 | PN- Cardiology ---
Subjective Subjective: * Patient will intermittently follow commands and was able to squeeze my hand on the right side. * LP is in the normal range. * Sinus rhythm with PVC's * creatinine improved to 1.8 and sodium is 150 Objective Vital Signs and I&Os Vital Signs Date Time Temp Pulse Resp B/P B/P Pulse O2 O2 Flow FiO2 Mean Ox Delivery Rate 08/07 1438 98 167/83 03/06 1400 98 24 167/83 03/06 1200 98.0 95 20 132/60 03/06 1200 94 Nasal 65% Cannula 03/ 1135 97 Nasal 65% Cannula / 1120 97 BIPAP 50% 03/ 1114 86 97 03/06 1100 95 146/64 03/06 1000 88 24 151/74 03/06 0800 97.2 89 24 155/81 03/06 0800 97.2 89 24 138/70 98 BIPAP 60% 03/06 0800 98 BIPAP 60% 03/06 0751 88 98 03/06 0709 79 142/71 03/06 0600 97.2 90 28 164/80 03/06 0538 83 95 03/06 0400 97.2 84 36 148/77 03/06 0400 95 BIPAP 60% 03/06 0300 76 132/75 03/06 0227 85 95 03/06 0200 97.1 84 26 118/70 03/06 0058 87 95 03/06 0000 97.1 76 25 128/70 03/06 0000 88 BIPAP 70% 03/06 0000 97.1 76 25 128/70 88 BIPAP 70% 03/06 0000 73 88 03/05 2220 80 94 03/05 2200 97.2 72 24 107/56 03/05 2108 90 114/80 03/05 2054 93 BIPAP 55% 03/05 1999 97.2 72 24 115/69 03/05 1999 96 BIPAP 55% 03/05 1929 74 93 Intake & Output / 1600 03/06 0800 03/06 0000 03/05 1600 03/05 0800 03/05 0000 Intake Total 490 112 457 717.8 1185 1126 Output Total 2200 1800 1000 400 400 450 Balance -1710 -1688 -543 317.8 785 676 Intake, Blood 291 Product Intake, IV 490 112 166 717.8 1185 1126 Intake, Oral 0 0 0 0 Number 0 0 0 0 Bowel Movements Output, Urine 2200 1800 1000 400 400 450 Patient 236 lb 239 lb Weight Weight Bed scale Bed scale Measurement Method Physical Exam: General: WD/obese male in NAD; obtunded Neck: no JVD, no carotid bruit Heart: RRR, no murmur Lungs: clear bilaterally Extremities: 2+ bilateral leg edema with bilateral erythema L>R Assessment/Plan Assessment/Plan * This patient continues to be obtunded and only responds with both verbal and physical stimuli followed by repeated unresponsiveness. An EEG reportedly showed low voltage. No evidence of intracerebral bleed or trauma or CVA on his head CT. Continue to avoid all sedation. Maintain adequate oxygenation. An hypoxic encephalopathy is suspected as a cause of his mental status abnormality. A repeat EEg is being considered. * This patient had a rise in cardiac enzymes consistent with a type 2 [place]. He has no chest discomfort and there are no clear ST segment elevations. Monitor his cardiac enzymes until they peak. He will not be able to tolerate nitrates due to his blood pressure which dropped after receiving NTG by EMS. Rate control will be the most effective means of limiting any myocardial ischemia. Continue aspirin 325mg daily. * Atrial fibrillation. It is unknown how long this patient had been in atrial fibrillation but due to hemodynamic instability he was cardioverted to a sinus rhythm and is hemodynamically improved. 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 When patient is more stable a NOELLE may be pursued to try and differentiate thrombus from tumor. Continue telemetry? Yes
--- NOTE | 2017-08-07 17:57 | Event Note ---
Event Note Event Note: Repeat Na level: 150 Patient's mental status relatively the same calculated water deficit and will adjust D5w rate Will check another Na level in 1.5 hours Will monitor closely
[2017-08-07 21:09] LABS: PTT 113 SEC (25-37)
[2017-08-08] VITALS (12 sets, daily range): BP systolic 104–166; BP diastolic 47–90
--- NOTE | 2017-08-08 03:21 | RADIOLOGY REPORT ---
EXAMINATION: XR PORTABLE CHEST CLINICAL INFORMATION: Endotracheal tube placement COMPARISON: 08/07/2017 TECHNIQUE: Portable frontal view of the chest was obtained. FINDINGS: Endotracheal tube tip is at the thoracic inlet, approximately 10 cm above the hollis. The orogastric tube appears to course below the diaphragm into the stomach. The tip is not well seen due to extensive overlying soft tissue shadow in the upper abdomen. There is mildly worsening airspace opacity in the right upper lobe. Right basilar aeration appears slightly improved from prior. There is persistent retrocardiac left basilar opacity. No pneumothorax is seen. Trace pleural effusions cannot be excluded. The cardiac silhouette remains prominent. No acute osseous findings are seen. IMPRESSION: 1. Endotracheal tube tip at the thoracic inlet, approximately 10 cm above the hollis. 2. Orogastric tube appears to course into the stomach, with the tip not well visualized. 3. Mildly worsening right upper lobe consolidation. Persistent retrocardiac opacity. Slightly improved right basilar aeration. This critical result was discussed with Amber Bird on 08/08/2017 3:17 AM, and it was ascertained that the content and urgency of the report was understood at the time of direct communication.
--- NOTE | 2017-08-08 03:23 | Event Note ---
Event Note Event Note: Mr Pike had increasing requirements of oxygen during the night. He was placed on 100% high flow oxygen while he was saturating in between 80-90%. Blood gas was obtained which revealed pH 7.34, PCO2 63, PO2 77. He was intubated and was started on mechanical ventilation-volume control: Tidal volume-550, PEEP 5, FiO2 100%. A stat chest x-ray was ordered, which revealed ET tube 10 cm above the hollis. Plan was to advance the ET tube by 5 cm and repeat chest x-ray. Blood pressures remained stable. He was given fentanyl 25 g [address] Cisneros. Informed the family.
[2017-08-08 03:32] LABS: PTT 58 SEC (25-37)
--- NOTE | 2017-08-08 04:49 | RADIOLOGY REPORT ---
EXAMINATION: XR PORTABLE CHEST CLINICAL INFORMATION: Repositioned endotracheal tube COMPARISON: Chest x-ray from earlier today TECHNIQUE: Portable frontal view of the chest was obtained. FINDINGS: Endotracheal tube tip appears to lie approximately 7 cm above the hollis. Enteric tube likely courses in the stomach though is not well seen distally. A right PICC line appears to terminate in the region of the right subclavian vein. There are redemonstrated regions of opacification in the right upper lobe and retrocardiac left base. There is additional hazy opacity at the right base, also similar to prior. No appreciable pneumothorax. Small pleural effusions are suspected. The cardiomediastinal silhouette is stable. No acute osseous findings are seen. IMPRESSION: 1. Endotracheal tube tip approximately 7 cm above the hollis. 2. Right PICC appears to terminate in the region of the right subclavian vein. 3. Redemonstrated multifocal bilateral airspace opacities and trace pleural effusions.
[2017-08-08 05:35] LABS: ABSOLUTE EOSINOPHIL COUNT 0 /CUMM (0.0-0.7); ABSOLUTE LYMPH COUNT 0.6 /CUMM (1.2-3.4); MEAN CORPUSCULAR HGB 31.7 PG (27.0-31.0); MEAN CORPUSCULAR VOLUME 97.4 FL (80.0-94.0); MEAN PLATELET VOLUME 8.5 FL (7.4-10.4); PLATELET COUNT 111 /CUMM (130-400); WHITE BLOOD CELL COUNT 8.2 /CUMM (4.8-10.8)
[2017-08-08 05:44] LABS: ABSOLUTE BASOPHIL COUNT BC# /CUMM (0.0-0.2); ABSOLUTE GRANULOCYTE CT 7.1 /CUMM (1.4-6.5); ABSOLUTE MONOCYTE COUNT 0.5 /CUMM (0.10-0.60); BASOPHIL % 0.1 % (0.0-2.0); EOSINOPHIL % 0.2 % (0-5); GRANULOCYTE % 86.7 % (42.2-75.2); MEAN CORPUSCULAR HGB CONC 33.1 G/DL (33.0-37.0); RED BLOOD CELL CT 4.31 /CUMM (4.70-6.10)
[2017-08-08 06:09] LABS: HEMATOCRIT 41.6 % (42-52)
--- NOTE | 2017-08-08 08:07 | PN- Resident CRCU ---
Subjective HPI/CRCU Issues: Altered mental status A. fib with RVR Apical thrombus Hypoxemic respiratory failure Type II LA RICHI 24 Hour Events: Overnight Mr. Garcia desaturated and was intubated, one time 25mg fentanyl push was given. Family was informed of the events Seen and examined patient this morning. No spontaneous eye movements noted, pupils pinpoint and sluggishly reactive. Called and spoke to his son Mr. Jose Pike and gave update regarding the patient's status and overnight events. He will be coming to visit his father on August 11. Tmax 97.4, heart rate 60 to 70s, SR Blood pressure 110-130 systolic,60-90 diastolic Currently ventilated AC 18/550/60/5 Total balance 9594/4390 Daily intake 1287/3200 total I/O 66097/72434 CXR 08/08/17 1. Endotracheal tube tip approximately 7 cm above the hollis. 2. Right PICC appears to terminate in the region of the right subclavian vein. 3. Redemonstrated multifocal bilateral airspace opacities and trace pleural effusions. Objective Vital Signs & I&O Last 8 Hrs of Vitals and I&O: Intake & Output 08/08 1600 08/08 0800 08/08 0000 Intake Total 1036 944 Output Total 1550 1000 Balance -514 -56 Intake, IV 776 746 Intake, Oral 0 Intake, Tube 100 98 Feeding Intake, Tube 160 100 Irrigant Number 0 0 Bowel Movements Output, Urine 1550 1000 Patient 236 lb Weight Laboratory Tests 08/08 08/08 08/08 0810 0505 0355 Blood Gas pH (7.35 - 7.45 PH) 7.43 pCO2 (35 - 45 TORR) 49 H pO2 (80 - 100 TORR) 289 H HCO3 (21 - 28 MEQ/L) 32 H ABG O2 Sat (Measured) (>96.0 %) 99.0 P-50 (Temp Corrected) Y Carboxyhemoglobin (1.5 - 5.0 %) 0.1 L O2 Concentration % 100% Temperature (97.0 - 100.0 FARH) 97.4 Respiration Rate (BPM) 18 O2 Delivery Method ESPRIT Vent Mode AC Expiratory Pressure (CMH2O/P) 5 Tidal Volume (CC) 550 Chemistry Sodium (137 - 145 mmol/L) 151 H Potassium (3.5 - 5.1 mmol/L) 4.0 Chloride (98 - 107 mmol/L) 107 Carbon Dioxide (22 - 30 mmol/L) 37 H Anion Gap (5 - 16) 7 BUN (9 - 20 mg/dL) 45 H Creatinine (0.7 - 1.2 mg/dL) 1.6 H Estimated GFR (>60 ml/min) 43 L Glucose (65 - 99 mg/dL) 122 H Calcium (8.4 - 10.2 mg/dL) 8.9 Phosphorus (2.5 - 4.5 mg/dL) 2.7 Magnesium (1.6 - 2.3 mg/dL) 1.8 Total Bilirubin (0.2 - 1.3 mg/dL) 1.1 AST (17 - 59 U/L) 55 ALT (21 - 72 U/L) 53 Albumin (3.5 - 5.0 g/dL) 2.0 L Coagulation APTT (25 - 37 SEC) 58 H Hematology CBC w Diff MAN DIFF ORDERED WBC (4.8 - 10.8 /CUMM) 8.2 RBC (4.70 - 6.10 /CUMM) 4.31 L Hgb (14.0 - 18.0 G/DL) 13.8 L Hct (42 - 52 %) 41.6 L MCV (80.0 - 94.0 FL) 97.4 H MCH (27.0 - 31.0 PG) 31.7 H MCHC (33.0 - 37.0 G/DL) 33.1 RDW (11.5 - 14.5 %) 18.0 H Plt Count (130 - 400 /CUMM) 111 L MPV (7.4 - 10.4 FL) 8.5 Gran % (42.2 - 75.2 %) 86.7 H Lymphocytes % (20.5 - 51.1 %) 7.1 L Monocytes % (1.7 - 9.3 %) 5.9 Eosinophils % (0 - 5 %) 0.2 Basophils % (0.0 - 2.0 %) 0.1 Absolute Granulocytes (1.4 - 6.5 /CUMM) 7.1 H Segmented Neutrophils (42.2 - 75.2 %) 83 H Band Neutrophils (0.0 - 5.0 %) 9 H Absolute Lymphocytes (1.2 - 3.4 /CUMM) 0.6 L Lymphocytes (20.5 - 51.1 %) 6 L Monocytes (1.7 - 9.3 %) 2 Absolute Monocytes (0.10 - 0.60 /CUMM) 0.5 Absolute Eosinophils (0.0 - 0.7 /CUMM) 0 Absolute Basophils (0.0 - 0.2 /CUMM) BC# Platelet Estimate (ADEQUATE) ADEQUATE Polychromasia 1+ Poikilocytosis 1+ Anisocytosis 1+ Target Cells 1+ [place] Cells 1+ Elliptocytes 1+ Miscellaneous Phlebotomy Draw Site RIGHT RADIAL 08/08 08/08 08/08 08/08 0300 0150 0100 0002 Blood Gas pH (7.35 - 7.45 PH) 7.34 L pCO2 (35 - 45 TORR) 63 *H pO2 (80 - 100 TORR) 77 L HCO3 (21 - 28 MEQ/L) 34 H ABG O2 Sat (Measured) (>96.0 %) 94.0 L P-50 (Temp Corrected) Y Carboxyhemoglobin (1.5 - 5.0 %) 0.5 L O2 Concentration % 95% 45 LPM Temperature (97.0 - 100.0 FARH) 97.3 O2 Delivery Method HI MAURICE N/C Chemistry Sodium (137 - 145 mmol/L) 150 H Cancelled 152 H Potassium (3.5 - 5.1 mmol/L) 4.0 Cancelled 4.3 Chloride (98 - 107 mmol/L) 108 H Cancelled 110 H Carbon Dioxide (22 - 30 mmol/L) 36 H Cancelled 35 H Anion Gap (5 - 16) 6 Cancelled 8 BUN (9 - 20 mg/dL) 44 H Cancelled 44 H Creatinine (0.7 - 1.2 mg/dL) 1.8 H Cancelled 1.6 H Estimated GFR (>60 ml/min) 37 L 43 L Glucose (65 - 99 mg/dL) 144 H Cancelled 152 H Calcium (8.4 - 10.2 mg/dL) 8.8 Cancelled 9.1 Phosphorus (2.5 - 4.5 mg/dL) 3.3 Cancelled 2.9 Magnesium (1.6 - 2.3 mg/dL) 1.9 Cancelled 1.6 Total Bilirubin (0.2 - 1.3 mg/dL) 1.2 Cancelled 1.3 AST (17 - 59 U/L) 57 Cancelled 63 H ALT (21 - 72 U/L) 57 Cancelled 56 Albumin (3.5 - 5.0 g/dL) 2.0 L Cancelled 2.2 L Coagulation APTT (25 - 37 SEC) 58 H Miscellaneous Phlebotomy Draw Site RIGHT RADIAL 08/07 08/07 08/07 08/07 2300 1940 1830 1630 Chemistry Sodium (137 - 145 mmol/L) Cancelled 148 H Cancelled 150 H Potassium (3.5 - 5.1 mmol/L) Cancelled 3.2 L Cancelled 3.4 L Chloride (98 - 107 mmol/L) Cancelled 105 Cancelled 107 Carbon Dioxide (22 - 30 mmol/L) Cancelled 37 H Cancelled 36 H Anion Gap (5 - 16) Cancelled 6 Cancelled 6 BUN (9 - 20 mg/dL) Cancelled 45 H Cancelled 49 H Creatinine (0.7 - 1.2 mg/dL) Cancelled 1.6 H Cancelled 1.6 H Estimated GFR (>60 ml/min) 43 L 43 L BUN/Creatinine Ratio (7 - 25 %) 30.6 H Glucose (65 - 99 mg/dL) Cancelled 116 H Cancelled Calcium (8.4 - 10.2 mg/dL) Cancelled 8.9 Cancelled Phosphorus (2.5 - 4.5 mg/dL) Cancelled 3.2 Cancelled Magnesium (1.6 - 2.3 mg/dL) Cancelled 1.6 Cancelled Total Bilirubin (0.2 - 1.3 mg/dL) Cancelled 1.2 Cancelled AST (17 - 59 U/L) Cancelled 61 H Cancelled ALT (21 - 72 U/L) Cancelled 60 Cancelled Albumin (3.5 - 5.0 g/dL) Cancelled 2.1 L Cancelled Coagulation APTT (25 - 37 SEC) 113 *H 08/07 08/07 1300 1040 Blood Gas pH (7.35 - 7.45 PH) 7.42 pCO2 (35 - 45 TORR) 48 H pO2 (80 - 100 TORR) 79 L HCO3 (21 - 28 MEQ/L) 30 H ABG O2 Sat (Measured) (>96.0 %) 96.0 P-50 (Temp Corrected) YES Carboxyhemoglobin (1.5 - 5.0 %) 0 L O2 Concentration % 65% Temperature (97.0 - 100.0 FARH) 98.0 O2 Delivery Method HFNC Coagulation PT (9.4 - 12.5 SEC) 15.9 H INR (0.90 - 1.17) 1.45 H APTT (25 - 37 SEC) 56 H Miscellaneous Phlebotomy Draw Site RIGHT RADIAL Exam General Appearance: intubated Respiratory: quiet respiration Cardiovascular: regular rate/rhythm, edema Gastrointestinal: soft Extremities: LEFT LEG +3 PITTING EDEMA AND WORSENING ERYTHEMA AND WARMTH NOTED Current Medications: Current Medications Sig/Richard Start time Last Medication Dose Route Stop Time Status Admin Albuterol Sulfate 3 ML BID 08/06 1000 AC 08/08 INH 0928 Albuterol Sulfate 3 ML Q4P PRN 08/04 1330 AC 08/06 INH 0832 Aspirin 300 MG 0300 08/04 0300 AC 08/08 RI 0501 Bisacodyl 10 MG ONCE ONE 08/08 0800 DC 08/08 RI 08/08 0801 0821 Ceftriaxone Sodium 1,000 MG DAILY@1900 / 1900 DC 08/07 IV 08/08 0000 1838 Dextrose/Water 1,000 ML .[id number] 08/07 1115 AC 08/08 IV 0500 Dextrose/Water 1,000 ML .[id number] / 1100 DC 08/07 IV 1053 Doxycycline Hyclate 100 MG Q12H 08/04 1315 DC 08/07 Sodium Chloride 100 ML IV 08/08 0000 1322 Fentanyl Citrate 25 MCG ONCE ONE 08/08 0315 DC 03/ IV / 0316 0320 Furosemide 40 MG Q12 08/07 2200 AC 03/ IV 2151 Furosemide 40 MG Q8 08/06 2200 DC 08/07 IV 0709 Heparin Sodium 5,000 UNIT .STK-MED ONE 08/07 1417 DC (Porcine) IV / 1418 Heparin Sodium 25,000 UNIT Q24H / 1545 AC 08/07 (Porcine) IV 1613 Sodium Chloride 500 ML Magnesium Sulfate 1 GM ONCE ONE 08/08 0815 AC Dextrose/Water 100 ML IV 08/08 1214 Magnesium Sulfate 1 GM ONCE ONE 08/08 0100 DC 08/08 Dextrose/Water 100 ML IV 08/08 0459 0101 Metoprolol Tartrate 5 MG Q4 08/05 1515 AC 08/08 IV 0504 Nystatin 1 CYN BID PRN 08/03 0645 AC TOP Pantoprazole Sodium 40 MG DAILY 08/03 1000 AC 08/07 IV 1052 Potassium Chloride 40 MEQ Q1 08/07 2300 DC / PO 08/08 0001 2332 Potassium Chloride 10 MEQ Q1H 08/07 1300 DC 08/07 IV 08/07 1401 1612 Impression/Plan Impression/Problem List Impression: 72 year old gentleman with past medical history significant for diastolic heart failure, hypertension syncope, per family he had an LA and had a stent placement at [facility] about 7 years ago, recent fall couple of days prior to admission, brought in by ambulance for altered mental status. On dmission found to have transaminitis, increased INR, elevated troponins. afebrile overnight, worsening leukocytosis, platelet count trending up, sodium 151, creatinine 1.6 BUn 45 Altered mental status/encephalopathy Unclear etiology at this time. Unlikely to be septic encephalopathy as he did not come in presenting with sepsis like picture or hepatic encephalopathy as his ammonia is normal along with downtrending transaminitis is transaminitis most likely secondary to congestion. DDX at this time Cerebral edema versus hypoxic-ischemic encephalopathy (during could be a cause) medication cannot be ruled out as we are still unclear at to what medications he took prior to admissions Preliminary blood cultures show no growth, no increased WBC, electrolytes within normal limits Transaminitis trended down Acetaminophen/salicycylates levels within normal CT head 3 showed no acute intracranial pathology, midline shift or hemorrhage CT abdomen and pelvis showed sigmoid diverticulosis without evidence of diverticulitis EEG done 08/06/17 revealed diffuse generalized slowing to delta range rhythms. The average amplitude is very low in the 5-10 microvolt range. Suggestive of diffuse cerebral dysfunction and a non-specific encephalopathy. ID and neuro on board appreciate recommendations Vit b12, ammonia levels wnl, UA neg for nitrates or leukocyte esterase No change in mental status noted with narcan 0.4 mg X2 doses and one time trial of flumazenil 0.5mg. LP done 08/06/17 not significant for infection will continue to monitor closely Acute Respiratory failure afebrile overnight, no leukocytosis, bandemia 8->15->1->9 today multifactorial (aspiration/ worsening pulm edema) ATC TRC/nebs, keep head of bed elevated intubated overnight Chest x-ray done 08/05/17 : persistent diffuse bilateral fluffy airspace opacities with relative sparing of the left lung apex. No interval change in diffuse bilateral airspace opacities and vascular engorgement, most consistent with alveolar pulmonary edema versus less likely diffuse pneumonia. ID recommending to watch him off of antibiotics Will continue diuresis Atrial fibrillation with Rapid ventricular rate Status post synchronized cardioversion Continue IV heparin IV Cardizem drip dc 08/06/17 A cardiogram done 08/02/2017 showed normal EF of 50% with inferoapical and apical hypokinesis and large pedicle thrombus Positive troponins peaked to 1.98 and trended down likely type II LA TFT wnl Aterial doppler showed patent deep arterial systems of the bilateral lower extremities. Deep arteries of the left calf were not clearly visualized, however , left dorsal pedis artery was documented as patent. cardiology on board appreciate recommendations Transaminitis LTF's trending down Hepatitis panel and HIV nonreactive, Hypernatremia Sodium 151 today, most likely due to diuresis and insensible losses d5w increased to 75cc with increased water flushes will continue to monitor closely Thrombocytopenia 123->115> 99--> 111 4t SCORE = 4 intermediate probability Hit antibody 0.162, which is indeterminate, will follow up with Serotonin assay Left leg Cellulitis given two doses of vancomycin Worsening erythema swelling and warmth Lower extremity Dopplers ruled out DVT RICHI-improving Cr/bun 45/1.6 today likely ischemic ATN On tube feeds DVT: IV heparin full code guarded prognosis Problem List: 1. Rapid atrial fibrillation 2. Elevated troponin 3. Hypotension Pain Ratin Tomorrow's Labs & Rationales: ICU bundle/CBC Plan DVT/Prophylaxis: pharmacological
[2017-08-08 09:06] LABS: PTT 58 SEC (25-37)
--- NOTE | 2017-08-08 14:19 | PN- Nephrology ---
Assessment/Plan Nephrology Assessment: RICHI - Likely ischemic ATN in the setting of A fib with RVR/hypotension - improving (not clear exactly what his baseline Cr is - got down to 1.1 in 2011). No evidence of obstruction on Renal US. Volume expanded on exam. Doubt GN given minimal proteinuria although complements pending. Volume overload - needs more diuresis. Hypernatremia - 2/2 decreased free water intake - either needs an NG tube with free water boluses or a D5W gtt. Altered mental status - Underlying etiology still remains unclear with an essentially negative work-up thus far. Suggestion: -OK to diurese - can probably increase lasix to 40mg IV BID -Increase D5W to 100cc/hr -f/u complements Please call [phone] with ?'s Subjective Subjective: SCr 1.6 Intubated - chest x-ray with probable pulm edema - got 40mg IV lasix yesterday and again today Na 151 Bicarb 37 Blood gas 7.43/49/289 No new micro; afebrile; WBC stable 8.2 Objective Vital Signs and I&Os Vital Signs Date Time Temp Pulse Resp B/P B/P Pulse O2 O2 Flow FiO2 Mean Ox Delivery Rate / 1407 40 03/ 1200 98.1 91 18 108/54 03/07 1200 99 Ventilator 45% 03/07 1128 45 03/07 1117 101 138/60 03/07 1000 95 20 118/58 03/07 0810 50 03/07 0800 97.3 94 18 132/68 03/07 0800 97.3 94 18 132/68 98 Ventilator 60% 03/07 0800 98 Ventilator 60% 03/07 0600 97.4 88 18 111/75 03/07 0536 60 03/07 0504 91 124/72 03/07 0412 60 03/07 0405 100 03/07 0400 97.4 80 18 104/63 03/07 0400 98 Ventilator 60% 03/07 0239 100 03/07 0200 97.3 84 22 151/77 03/07 0101 92 166/90 03/07 0050 85 Nasal 70% Cannula 03/07 0019 90 85 03/07 0000 97.6 86 26 166/90 03/ 0000 97.4 86 26 160/90 88 Nasal 70% Cannula 03/ 0000 88 Nasal 70% Cannula 08/07 2216 93 Nasal 55% Cannula 03/06 220 98.2 88 36 149/78 08/07 2150 91 150/84 08/08 1999 98.2 86 22 123/78 08/08 1999 96 Nasal 60% Cannula 08/07 1941 94 Nasal 60% Cannula 08/07 1838 96 136/75 / 1800 86 22 136/76 08/07 1600 97.7 89 20 166/72 08/07 1600 97.7 89 20 166/72 96 Nasal 65% Cannula 08/07 1600 96 Nasal 60% Cannula 08/07 1600 96 Nasal 65% Cannula 08/07 1438 98 167/83 Intake & Output 08/08 1600 08/08 0400 08/07 1600 08/07 0400 08/06 1600 08/06 0400 Intake Total 1036 944 921 175 2544.8 1126 Output Total 1550 1000 4000 1000 800 450 [facility] -543 1102.8 676 Intake, Blood 291 Product Intake, IV 776 746 523 455 6975.8 1126 Intake, Oral 0 0 0 0 Intake, Tube 100 98 Feeding Intake, Tube 160 100 Irrigant Number 0 0 0 0 0 0 Bowel Movements Output, Urine 1550 1000 4000 1000 800 450 Patient 236 lb 236 lb 239 lb Weight Weight Bed scale Bed scale Measurement Method Physical Exam: Gen - ill appearing HEENT - +ETT CV - RRR, no m/r/g Chest - coarse breath sounds anteriorly Abd - soft, NTND Ext - 1+ edema with lower ext erythema and blackened patches Neuro - not meaningfully responsive Current Medications: Current Medications Sig/Richard Start time Last Medication Dose Route Stop Time Status Admin Albuterol Sulfate 3 ML BID 08/06 1000 AC 08/08 INH 0928 Albuterol Sulfate 3 ML Q4P PRN 08/04 1330 AC 08/06 INH 0832 Aspirin 300 MG 0300 08/04 0300 AC 08/08 SD 0501 Bisacodyl 10 MG ONCE ONE 08/08 0800 DC 08/08 SD 08/08 0801 0821 Ceftriaxone Sodium 1,000 MG DAILY@1900 /05 1900 DC 08/07 IV 08/08 0000 1838 Dextrose/Water 1,000 ML .[id number] 08/07 1115 AC 08/08 IV 0500 Doxycycline Hyclate 100 MG Q12H 08/04 1315 DC 08/07 Sodium Chloride 100 ML IV 08/08 0000 1322 Fentanyl Citrate 25 MCG ONCE ONE 08/08 0315 DC 03/ IV 08/08 0316 0320 Fentanyl Citrate 100 MCG .STK-MED ONE 08/08 0314 DC IM 08/08 0315 Furosemide 40 MG Q12 08/07 2200 AC 08/08 IV 0933 Heparin Sodium 5,000 UNIT .STK-MED ONE 08/07 1417 DC (Porcine) IV 08/07 1418 Heparin Sodium 25,000 UNIT Q24H 08/02 1545 AC 08/07 (Porcine) IV 1613 Sodium Chloride 500 ML Magnesium Sulfate 1 GM ONCE ONE 08/08 0815 DC 08/08 Dextrose/Water 100 ML IV 08/08 1214 1117 Magnesium Sulfate 1 GM ONCE ONE 08/08 0100 DC 08/08 Dextrose/Water 100 ML IV 08/08 0459 0101 Metoprolol Tartrate 5 MG Q4 08/05 1515 AC 08/08 IV 1117 Nystatin 1 CYN BID PRN 08/03 0645 AC 08/08 TOP 0936 Pantoprazole Sodium 40 MG DAILY 08/03 1000 AC 08/08 IV 0933 Potassium Chloride 40 MEQ Q1 08/07 2300 DC 08/07 PO 08/08 0001 2332 Results Pertinent Lab Results: Laboratory Tests 08/08 08/08 08/08 0810 0505 0355 Blood Gas pH (7.35 - 7.45 PH) 7.43 pCO2 (35 - 45 TORR) 49 H pO2 (80 - 100 TORR) 289 H HCO3 (21 - 28 MEQ/L) 32 H ABG O2 Sat (Measured) (>96.0 %) 99.0 P-50 (Temp Corrected) Y Carboxyhemoglobin (1.5 - 5.0 %) 0.1 L O2 Concentration % 100% Temperature (97.0 - 100.0 FARH) 97.4 Respiration Rate (BPM) 18 O2 Delivery Method ESPRIT Vent Mode AC Expiratory Pressure (CMH2O/P) 5 Tidal Volume (CC) 550 Chemistry Sodium (137 - 145 mmol/L) 151 H Potassium (3.5 - 5.1 mmol/L) 4.0 Chloride (98 - 107 mmol/L) 107 Carbon Dioxide (22 - 30 mmol/L) 37 H Anion Gap (5 - 16) 7 BUN (9 - 20 mg/dL) 45 H Creatinine (0.7 - 1.2 mg/dL) 1.6 H Estimated GFR (>60 ml/min) 43 L Glucose (65 - 99 mg/dL) 122 H Calcium (8.4 - 10.2 mg/dL) 8.9 Phosphorus (2.5 - 4.5 mg/dL) 2.7 Magnesium (1.6 - 2.3 mg/dL) 1.8 Total Bilirubin (0.2 - 1.3 mg/dL) 1.1 AST (17 - 59 U/L) 55 ALT (21 - 72 U/L) 53 Albumin (3.5 - 5.0 g/dL) 2.0 L Coagulation APTT (25 - 37 SEC) 58 H Hematology CBC w Diff MAN DIFF ORDERED WBC (4.8 - 10.8 /CUMM) 8.2 RBC (4.70 - 6.10 /CUMM) 4.31 L Hgb (14.0 - 18.0 G/DL) 13.8 L Hct (42 - 52 %) 41.6 L MCV (80.0 - 94.0 FL) 97.4 H MCH (27.0 - 31.0 PG) 31.7 H MCHC (33.0 - 37.0 G/DL) 33.1 RDW (11.5 - 14.5 %) 18.0 H Plt Count (130 - 400 /CUMM) 111 L MPV (7.4 - 10.4 FL) 8.5 Gran % (42.2 - 75.2 %) 86.7 H Lymphocytes % (20.5 - 51.1 %) 7.1 L Monocytes % (1.7 - 9.3 %) 5.9 Eosinophils % (0 - 5 %) 0.2 Basophils % (0.0 - 2.0 %) 0.1 Absolute Granulocytes (1.4 - 6.5 /CUMM) 7.1 H Segmented Neutrophils (42.2 - 75.2 %) 83 H Band Neutrophils (0.0 - 5.0 %) 9 H Absolute Lymphocytes (1.2 - 3.4 /CUMM) 0.6 L Lymphocytes (20.5 - 51.1 %) 6 L Monocytes (1.7 - 9.3 %) 2 Absolute Monocytes (0.10 - 0.60 /CUMM) 0.5 Absolute Eosinophils (0.0 - 0.7 /CUMM) 0 Absolute Basophils (0.0 - 0.2 /CUMM) BC# Platelet Estimate (ADEQUATE) ADEQUATE Polychromasia 1+ Poikilocytosis 1+ Anisocytosis 1+ Target Cells 1+ [place] Cells 1+ Elliptocytes 1+ Miscellaneous Phlebotomy Draw Site RIGHT RADIAL 08/08 08/08 08/08 08/08 0300 0150 0100 0002 Blood Gas pH (7.35 - 7.45 PH) 7.34 L pCO2 (35 - 45 TORR) 63 *H pO2 (80 - 100 TORR) 77 L HCO3 (21 - 28 MEQ/L) 34 H ABG O2 Sat (Measured) (>96.0 %) 94.0 L P-50 (Temp Corrected) Y Carboxyhemoglobin (1.5 - 5.0 %) 0.5 L O2 Concentration % 95% 45 LPM Temperature (97.0 - 100.0 FARH) 97.3 O2 Delivery Method HI MAURICE N/C Chemistry Sodium (137 - 145 mmol/L) 150 H Cancelled 152 H Potassium (3.5 - 5.1 mmol/L) 4.0 Cancelled 4.3 Chloride (98 - 107 mmol/L) 108 H Cancelled 110 H Carbon Dioxide (22 - 30 mmol/L) 36 H Cancelled 35 H Anion Gap (5 - 16) 6 Cancelled 8 BUN (9 - 20 mg/dL) 44 H Cancelled 44 H Creatinine (0.7 - 1.2 mg/dL) 1.8 H Cancelled 1.6 H Estimated GFR (>60 ml/min) 37 L 43 L Glucose (65 - 99 mg/dL) 144 H Cancelled 152 H Calcium (8.4 - 10.2 mg/dL) 8.8 Cancelled 9.1 Phosphorus (2.5 - 4.5 mg/dL) 3.3 Cancelled 2.9 Magnesium (1.6 - 2.3 mg/dL) 1.9 Cancelled 1.6 Total Bilirubin (0.2 - 1.3 mg/dL) 1.2 Cancelled 1.3 AST (17 - 59 U/L) 57 Cancelled 63 H ALT (21 - 72 U/L) 57 Cancelled 56 Albumin (3.5 - 5.0 g/dL) 2.0 L Cancelled 2.2 L Coagulation APTT (25 - 37 SEC) 58 H Miscellaneous Phlebotomy Draw Site RIGHT RADIAL 08/07 08/07 08/07 08/07 2300 1940 1830 1630 Chemistry Sodium (137 - 145 mmol/L) Cancelled 148 H Cancelled 150 H Potassium (3.5 - 5.1 mmol/L) Cancelled 3.2 L Cancelled 3.4 L Chloride (98 - 107 mmol/L) Cancelled 105 Cancelled 107 Carbon Dioxide (22 - 30 mmol/L) Cancelled 37 H Cancelled 36 H Anion Gap (5 - 16) Cancelled 6 Cancelled 6 BUN (9 - 20 mg/dL) Cancelled 45 H Cancelled 49 H Creatinine (0.7 - 1.2 mg/dL) Cancelled 1.6 H Cancelled 1.6 H Estimated GFR (>60 ml/min) 43 L 43 L BUN/Creatinine Ratio (7 - 25 %) 30.6 H Glucose (65 - 99 mg/dL) Cancelled 116 H Cancelled Calcium (8.4 - 10.2 mg/dL) Cancelled 8.9 Cancelled Phosphorus (2.5 - 4.5 mg/dL) Cancelled 3.2 Cancelled Magnesium (1.6 - 2.3 mg/dL) Cancelled 1.6 Cancelled Total Bilirubin (0.2 - 1.3 mg/dL) Cancelled 1.2 Cancelled AST (17 - 59 U/L) Cancelled 61 H Cancelled ALT (21 - 72 U/L) Cancelled 60 Cancelled Albumin (3.5 - 5.0 g/dL) Cancelled 2.1 L Cancelled Coagulation APTT (25 - 37 SEC) 113 *H 08/07 08/07 08/07 08/07 1300 1040 0930 0600 Blood Gas pH (7.35 - 7.45 PH) 7.42 pCO2 (35 - 45 TORR) 48 H pO2 (80 - 100 TORR) 79 L HCO3 (21 - 28 MEQ/L) 30 H ABG O2 Sat (Measured) (>96.0 %) 96.0 P-50 (Temp Corrected) YES Carboxyhemoglobin (1.5 - 5.0 %) 0 L O2 Concentration % 65% Temperature (97.0 - 100.0 FARH) 98.0 O2 Delivery Method HFNC Coagulation PT (9.4 - 12.5 SEC) 15.9 H INR (0.90 - 1.17) 1.45 H APTT (25 - 37 SEC) 56 H Cancelled Miscellaneous Ref Lab Test Result Pending Phlebotomy Draw Site RIGHT RADIAL 08/07 08/07 08/07 0445 0400 0140 Chemistry Sodium (137 - 145 mmol/L) Cancelled 150 H Potassium (3.5 - 5.1 mmol/L) Cancelled 3.7 Chloride (98 - 107 mmol/L) Cancelled 110 H Carbon Dioxide (22 - 30 mmol/L) Cancelled 28 Anion Gap (5 - 16) Cancelled 12 BUN (9 - 20 mg/dL) Cancelled 51 H Creatinine (0.7 - 1.2 mg/dL) Cancelled 1.8 H Estimated GFR (>60 ml/min) 37 L BUN/Creatinine Ratio Cancelled Glucose (65 - 99 mg/dL) 88 Calcium (8.4 - 10.2 mg/dL) 9.0 Phosphorus (2.5 - 4.5 mg/dL) 3.2 Magnesium (1.6 - 2.3 mg/dL) 1.9 Total Bilirubin (0.2 - 1.3 mg/dL) 1.2 AST (17 - 59 U/L) 65 H ALT (21 - 72 U/L) 66 Albumin (3.5 - 5.0 g/dL) 2.4 L Coagulation APTT (25 - 37 SEC) 43 H Hematology CBC w Diff MAN DIFF ORDERED Cancelled WBC (4.8 - 10.8 /CUMM) 9.0 Cancelled RBC (4.70 - 6.10 /CUMM) 4.86 Cancelled Hgb (14.0 - 18.0 G/DL) 15.5 Cancelled Hct (42 - 52 %) 47.0 Cancelled MCV (80.0 - 94.0 FL) 96.6 H Cancelled MCH (27.0 - 31.0 PG) 31.9 H Cancelled MCHC (33.0 - 37.0 G/DL) 33.0 Cancelled RDW (11.5 - 14.5 %) 17.7 H Cancelled Plt Count (130 - 400 /CUMM) 99 L Cancelled MPV (7.4 - 10.4 FL) 8.6 Cancelled Gran % (42.2 - 75.2 %) 87.9 H Lymphocytes % (20.5 - 51.1 %) 5.0 L Monocytes % (1.7 - 9.3 %) 7.0 Eosinophils % (0 - 5 %) 0.1 Basophils % (0.0 - 2.0 %) 0 Absolute Granulocytes (1.4 - 6.5 /CUMM) 7.9 H Segmented Neutrophils (42.2 - 75.2 %) 88 H Band Neutrophils (0.0 - 5.0 %) 1 Absolute Lymphocytes (1.2 - 3.4 /CUMM) 0.5 L Lymphocytes (20.5 - 51.1 %) 5 L Monocytes (1.7 - 9.3 %) 6 Absolute Monocytes (0.10 - 0.60 /CUMM) 0.6 Absolute Eosinophils (0.0 - 0.7 /CUMM) 0 Absolute Basophils (0.0 - 0.2 /CUMM) 0 Platelet Estimate (ADEQUATE) DECREASED Polychromasia 1+ Poikilocytosis 2+ Ovalocytes 1+ [place] Cells 1+ Other Body Source Fld Total RBCs Counted (%) 100 08/06 08/06 08/06 08/06 1730 1700 1700 1700 Coagulation APTT Cancelled Miscellaneous Ref Lab Test Result Pending Ref Lab Test Result Pending Ref Lab Test Result Pending Pending Ref Lab Test Result Pending Other Body Source CSF WBC (0 - 5 /CUMM) 3 CSF RBC (-0 /CUMM) 3 H CSF Comment CSF Glucose (40 - 70 mg/dL) 73 H CSF LDH (U/L) 197 CSF Total Protein (12 - 60 mg/dL) 91 H CSF Albumin Pending CSF IgG Pending IgG, Serum (MS) Pending Serum Albumin Pending CSF IgG Synth Rate MS Pending CSF/Serum IgG Index Pending Serology Herpes Simplex Source Pending HSV I DNA PCR Pending HSV II DNA PCR Pending 08/06 08/06 08/06 1416 1330 0948 Blood Gas pH (7.35 - 7.45 PH) 7.34 L pCO2 (35 - 45 TORR) 49 H pO2 (80 - 100 TORR) 80 HCO3 (21 - 28 MEQ/L) 16 L ABG O2 Sat (Measured) (>96.0 %) 94.0 L Carboxyhemoglobin (1.5 - 5.0 %) 0.5 L O2 Concentration % 75% O2 Delivery Method HFNC, 45 FLOW Coagulation PT (9.4 - 12.5 SEC) 16.9 H INR (0.90 - 1.17) 1.54 H APTT (25 - 37 SEC) 58 H Immunology Heparin-induced Plt Ab (NEGATIVE) NEGATIVE Heparin-PF4 AB OD (<OR= 0.300 OD UNITS) 0.162 Miscellaneous Phlebotomy Draw Site LEFT RADIAL 08/06 08/05 8918 0685 Chemistry Sodium (137 - 145 mmol/L) 142 Potassium (3.5 - 5.1 mmol/L) 3.7 Chloride (98 - 107 mmol/L) 108 H Carbon Dioxide (22 - 30 mmol/L) 27 Anion Gap (5 - 16) 7 BUN (9 - 20 mg/dL) 51 H Creatinine (0.7 - 1.2 mg/dL) 1.7 H Estimated GFR (>60 ml/min) 40 L Glucose (65 - 99 mg/dL) 136 H Calcium (8.4 - 10.2 mg/dL) 8.5 Phosphorus (2.5 - 4.5 mg/dL) 3.1 Magnesium (1.6 - 2.3 mg/dL) 1.8 Total Bilirubin (0.2 - 1.3 mg/dL) 1.0 AST (17 - 59 U/L) 69 H ALT (21 - 72 U/L) 69 [id number] Pept (<125 pg/mL) 7330 H Albumin (3.5 - 5.0 g/dL) 2.0 L Coagulation APTT (25 - 37 SEC) > 120 *H 34 Hematology CBC w Diff MAN DIFF ORDERED NO MAN DIFF REQ WBC (4.8 - 10.8 /CUMM) 6.9 8.3 RBC (4.70 - 6.10 /CUMM) 4.74 4.76 Hgb (14.0 - 18.0 G/DL) 15.1 14.9 Hct (42 - 52 %) 45.3 46.2 MCV (80.0 - 94.0 FL) 95.6 H 97.0 H MCH (27.0 - 31.0 PG) 31.9 H 31.3 H MCHC (33.0 - 37.0 G/DL) 33.4 32.3 L RDW (11.5 - 14.5 %) 16.8 H 17.9 H Plt Count (130 - 400 /CUMM) 115 L 123 L MPV (7.4 - 10.4 FL) 8.7 8.3 Gran % (42.2 - 75.2 %) 86.0 H 88.1 H Lymphocytes % (20.5 - 51.1 %) 7.3 L 5.5 L Monocytes % (1.7 - 9.3 %) 6.5 6.1 Eosinophils % (0 - 5 %) 0.1 0.1 Basophils % (0.0 - 2.0 %) 0.1 0.2 Absolute Granulocytes (1.4 - 6.5 /CUMM) 5.9 7.3 H Segmented Neutrophils (42.2 - 75.2 %) 73 Band Neutrophils (0.0 - 5.0 %) 15 H Absolute Lymphocytes (1.2 - 3.4 /CUMM) 0.5 L 0.5 L Lymphocytes (20.5 - 51.1 %) 5 L Monocytes (1.7 - 9.3 %) 7 Absolute Monocytes (0.10 - 0.60 /CUMM) 0.4 0.5 Absolute Eosinophils (0.0 - 0.7 /CUMM) 0 0 Absolute Basophils (0.0 - 0.2 /CUMM) 0 0 Platelet Estimate (ADEQUATE) ADEQUATE Basophilic Stippling RARE Target Cells RARE [place] Cells 1+ Elliptocytes 1+ Imaging/Other Studies: EXAM TYPE: RAD - XRY-PORTABLE CHEST XRAY EXAMINATION: XR PORTABLE CHEST CLINICAL INFORMATION: Repositioned endotracheal tube COMPARISON: Chest x-ray from earlier today TECHNIQUE: Portable frontal view of the chest was obtained. FINDINGS: Endotracheal tube tip appears to lie approximately 7 cm above the hollis. Enteric tube likely courses in the stomach though is not well seen distally. A right PICC line appears to terminate in the region of the right subclavian vein. There are redemonstrated regions of opacification in the right upper lobe and retrocardiac left base. There is additional hazy opacity at the right base, also similar to prior. No appreciable pneumothorax. Small pleural effusions are suspected. The cardiomediastinal silhouette is stable. No acute osseous findings are seen. IMPRESSION: 1. Endotracheal tube tip approximately 7 cm above the hollis. 2. Right PICC appears to terminate in the region of the right subclavian vein. 3. Redemonstrated multifocal bilateral airspace opacities and trace pleural effusions.
--- NOTE | 2017-08-08 14:41 | PN- CRCU ---
Subjective HPI/Critical Care Issues: Continues to diurese Still appended Needed to be intubated yesterday as he was hypercarbic and hypoxemic Now intubated and did receive 1 dose of fentanyl SIGNIFICANT DATA Chest x-ray showed ET tube in place right PICC line is in the right subclavian vein Bilateral multifocal airspace opacities Creatinine 1.6 BUN is 45 his sodium is elevated potassium is now adequate white count 8.2 hemoglobin 13.8 platelets have come up to 111 patient continues to be on heparin drip Postintubation ABG reviewed Ventilator settings reviewed Objective Current Medications: Current Medications Sig/Richard Start time Last Medication Dose Route Stop Time Status Admin Albuterol Sulfate 3 ML BID 08/06 1000 AC 08/08 INH 0928 Albuterol Sulfate 3 ML Q4P PRN 08/04 1330 AC 08/06 INH 0832 Aspirin 300 MG 0300 08/04 0300 AC 08/08 [place] 0501 Bisacodyl 10 MG ONCE ONE 08/08 0800 DC 08/08 VT / 0801 0821 Ceftriaxone Sodium 1,000 MG DAILY@1900 / 1900 DC / IV 03/ 0000 1838 Dextrose/Water 1,000 ML .Q10H 08/07 1115 r 08/08 IV 0500 Doxycycline Hyclate 100 MG Q12H 08/04 1315 DC / Sodium Chloride 100 ML IV / 0000 1322 Fentanyl Citrate 25 MCG ONCE ONE 08/08 0315 DC 03/ IV / 0316 0320 Fentanyl Citrate 100 MCG .STK-MED ONE 08/08 0314 DC IM 08/08 0315 Furosemide 40 MG Q12 / 2200 AC 08/08 IV 0933 Heparin Sodium 25,000 UNIT Q24H / 1545 AC / (Porcine) IV 1613 Sodium Chloride 500 ML Magnesium Sulfate 1 GM ONCE ONE 08/08 0815 DC 08/08 Dextrose/Water 100 ML IV 08/08 1214 1117 Magnesium Sulfate 1 GM ONCE ONE 08/08 0100 DC / Dextrose/Water 100 ML IV / 0459 0101 Metoprolol Tartrate 5 MG Q4 / 1515 AC 08/08 IV 1117 Nystatin 1 CYN BID PRN 08/03 0645 AC 08/08 TOP 0936 Pantoprazole Sodium 40 MG DAILY / 1000 AC 08/08 IV 0933 Potassium Chloride 40 MEQ Q1 08/07 2300 DC / PO / 0001 2332 Vital Signs & I&O Last 24 Hrs of Vitals and I&O: Vital Signs Date Time Temp Pulse Resp B/P B/P Pulse O2 O2 Flow FiO2 Mean Ox Delivery Rate 08/08 1407 40 08/08 1200 98.1 91 18 108/54 03/07 1200 99 Ventilator 45% / 1128 45 03/07 1117 101 138/60 03/07 1000 95 20 118/58 03/07 0810 50 03/07 0800 97.3 94 18 132/68 03/07 0800 97.3 94 18 132/68 98 Ventilator 60% 03/07 0800 98 Ventilator 60% / 0600 97.4 88 18 111/75 03/07 0536 60 03/07 0504 91 124/72 03/07 0412 60 03/07 0405 100 03/07 0400 97.4 80 18 104/63 03/07 0400 98 Ventilator 60% / 0239 100 03/07 0200 97.3 84 22 151/77 03/07 0101 92 166/90 03/07 0050 85 Nasal 70% Cannula 03/ 0019 90 85 03/07 0000 97.6 86 26 166/90 03/07 0000 97.4 86 26 160/90 88 Nasal 70% Cannula 03/ 0000 88 Nasal 70% Cannula 08/07 2216 93 Nasal 55% Cannula / 2200 98.2 88 36 149/78 03/06 2150 91 150/84 08/08 1999 98.2 86 22 123/78 08/08 1999 96 Nasal 60% Cannula 08/07 1941 94 Nasal 60% Cannula / 1838 96 136/75 03/06 1800 86 22 136/76 03/06 1600 97.7 89 20 166/72 03/06 1600 97.7 89 20 166/72 96 Nasal 65% Cannula / 1600 96 Nasal 60% Cannula / 1600 96 Nasal 65% Cannula / 1438 98 167/83 Intake & Output /07 1600 03/07 0800 03/07 0000 Intake Total 1036 944 Output Total 1550 1000 Balance -514 -56 Intake, IV 776 746 Intake, Oral 0 Intake, Tube 100 98 Feeding Intake, Tube 160 100 Irrigant Number 0 0 Bowel Movements Output, Urine 1550 1000 Patient 236 lb Weight Impression/Plan Impression/Plan Impression/Plan: Gen - ill appearing HEENT - +ETT CV - RRR, no m/r/g Chest - coarse breath sounds anteriorly Abd - soft, NTND Ext - 1+ edema with lower ext erythema and blackened patches Neuro - not meaningfully responsive IMPRESSION This is a 72-year-old gentleman with history of diabetes, previous heart failure diastolic, previous syncope, came into the hospital as was brought in from his home as his landlord found him on the floor. Patient apparently had had a previous fall in the snow as well.In the emergency room he was noted to have significant atrial fibrillation with tachycardia and he was hypotensive and hemodynamically unstable and had to have emergent cardioversion as his blood pressure was slow and he was unstable. Per history he has been non-compliant and has not seen any physicians in the recent past., Initially pt was conversant but slightly confused and since arriving in the ed he became less responsive and agitated requiring ativan and now appears to be worse with worsening mental status, with no fever (Apparently was lucid when he came in and he did not have any temperature and he was not complaining of a headache). Subsequently he became more confused and had to require large doses of Ativan as he was cardioverted emergently by Dr. Hitchcock. ISSUES * Recent worsening overall mental status status post fall with no clinical evidence suggestive of significant meningitis, LP not consistant with infection. Apparently his mental status when he came in was relatively stable and patient now has decreased mentation due to delirium and Ativan, and rule out brain stem stroke (lv clot and pafib) (now with bilateral pinpoing pupils and no response to narcan or flumazanil), Neuro and ID on board * Sig hypoxic and hypercarbic resp failure mainly due to Systolic chf and afib compounded by decreased mental status and inability to maintain his secretions now status post intubation * Initial unstable Rapid atrial fibrillation with significantly large intraventricular clot with PAFIb and at times flutter on heparin * Rule out stroke syndrome as he has intraventricular clot * Rule out aspiration due to reduced mental status * Resolved Lactic acidosis due to low flow state related to hypotension from his rapid atrial fibrillation, and prob sepsis as he may have aspiration pneumonia as well * Resolving Total body fluid overload with lower extremity edema with bilateral pleural effusion, atelectasis, clinical evidence suggestive of systolic and diastolic heart failure, with congested liver, with elevated bili and INR which is improving * Type II ME versus Acute coronary syndrome seen by cardiology * Bilateral pulmonary infiltrates with thick yellow-green sputum suggestive of pneumonia rule out aspiration pneumonitis * Chronic kidney disease with acute renal insufficiency, appears to be improving * No DVT/ No sig arterial ischemia * Recent Worsening performance status with previous hypertension hyperlipidemia and medical noncompliance * Sig lower ext edema due and chronic venoustasis changes * Low platelets needs to be followed * Unlikely pe but cannot rule out and not a candidate for vq and pt anticoag anyway REC Continue mechanical ventilation OG tube Finished a course of antibiotics for 7 days, patient may not need doxycycline just finish 7 days of ceftriaxone Continue Lasix twice a day Reduce IV fluids now to 60 mL and change other IV fluids with heparin etc. with D5 water Keep hob up by 35 degree Rpt cxr in am Periodex oral care tid Will evaluate renal function tomorrow depending on and will changes heparin to Lovenox and dose in with renal dose dosing Continue tube feeding Cont ppi Low-dose metoprolol down OG for rate control if needed Discontinue albuterol nebulizer treatment use only ipratropium Recheck his blood work this evening and replace potassium as needed Reduce his aspirin to 81 mg Pt continues to be critically ill
--- NOTE | 2017-08-08 15:01 | RADIOLOGY REPORT ---
EXAMINATION: XR PORTABLE CHEST CLINICAL INFORMATION: Adjustment of endotracheal tube. COMPARISON: Multiple chest x-rays most recent prior dated 08/08/2017 TECHNIQUE: Portable frontal view of the chest was obtained. FINDINGS: Endotracheal tube terminates approximately 2 cm above the hollis. Nasogastric tube extends below the level of the diaphragm. Tip is not included in examination. Improving aeration noted in the right upper lung. Stable moderate left effusion with associated airspace opacity left lower lung including retrocardiac region. Persistent patchy opacity noted in the right lower lung with residual hazy opacification left upper lobe.. IMPRESSION: 1. Interval adjustment of the endotracheal tube which now terminates approximately 2 cm above the hollis. 2. Improved aeration noted in the right upper lobe with residual hazy reticular changes. Persistent patchy opacity right lower lung. 3. Persistent moderate left effusion with associated airspace opacity .
[2017-08-08 17:07] LABS: PTT 82 SEC (25-37)
--- NOTE | 2017-08-08 20:57 | Event Note ---
Event Note Event Note: The patient had 11 rusn of Vtack on monitor, phy/exam unchanged, still unresponsive, S1 S2 ausculateted w/o any new murmur. 12 lead EKG SR at 91 with PVCS w/o any significant change compared to prior EKG. ICU bundle pending, to check K and Mg; Will follow closely.
[2017-08-09] VITALS: BP 106/62
[2017-08-09 02:00] VITALS: BP 117/66
[2017-08-09 03:53] LABS: ABSOLUTE BASOPHIL COUNT 0 /CUMM (0.0-0.2); ABSOLUTE EOSINOPHIL COUNT 0.1 /CUMM (0.0-0.7); ABSOLUTE GRANULOCYTE CT 7.8 /CUMM (1.4-6.5); ABSOLUTE MONOCYTE COUNT 0.5 /CUMM (0.10-0.60); BASOPHIL % 0.2 % (0.0-2.0); EOSINOPHIL % 0.6 % (0-5); GRANULOCYTE % 83.2 % (42.2-75.2); HEMATOCRIT 36.7 % (42-52); MEAN CORPUSCULAR HGB 31.6 PG (27.0-31.0); MEAN CORPUSCULAR HGB CONC 32.9 G/DL (33.0-37.0); MEAN CORPUSCULAR VOLUME 95.9 FL (80.0-94.0); MEAN PLATELET VOLUME 9.1 FL (7.4-10.4); PLATELET COUNT 115 /CUMM (130-400); RBC DISTRIBUTION WIDTH 17.7 % (11.5-14.5); RED BLOOD CELL CT 3.83 /CUMM (4.70-6.10); WHITE BLOOD CELL COUNT 9.4 /CUMM (4.8-10.8)
[2017-08-09 04:00] VITALS: BP 97/63
[2017-08-09 04:01] LABS: PTT 87 SEC (25-37)
--- NOTE | 2017-08-09 07:30 | PN- Resident CRCU ---
Subjective HPI/CRCU Issues: Intubated Altered mental status A. fib with RVR Apical thrombus Hypoxemic respiratory failure Type II DC RICHI 24 Hour Events: overnight patient apparently was agitated and he was given another one time fentanly push. He also has been noted to have NSVT with longest run of 11. Seen and examined patient this morning. When asked if he could open his eyes for me he shook his head. He was also able to squeeze my hands multiple times with his right hand when asked to. Left upper extremity swelling and ecchymosis noted on upper arm. Son was updated about the above this morning. Tmax 97.6, SR heart rate 90-100 Blood pressure 97-106 systolic, 59-62 diastolic Currently ventilated AC 18/550/40/5 saturating 97% Daily intake/output 3214/2000 total I/O 40829/88546 Objective Vital Signs & I&O Last 8 Hrs of Vitals and I&O: Intake & Output 08/09 1600 08/09 0800 / 0000 Intake Total 990 Output Total 550 Balance 440 Intake, IV 705 Intake, Tube 115 Feeding Intake, Tube 170 Irrigant Output, Urine 550 Laboratory Tests 08/09 08/09 08/08 0322 0300 2020 Chemistry Sodium (137 - 145 mmol/L) 149 H Cancelled 146 H Potassium (3.5 - 5.1 mmol/L) 3.3 L Cancelled 3.5 Chloride (98 - 107 mmol/L) 106 Cancelled 106 Carbon Dioxide (22 - 30 mmol/L) 37 H Cancelled 37 H Anion Gap (5 - 16) 5 Cancelled 3 L BUN (9 - 20 mg/dL) 46 H Cancelled 50 H Creatinine (0.7 - 1.2 mg/dL) 1.7 H Cancelled 1.6 H Estimated GFR (>60 ml/min) 40 L 43 L Glucose (65 - 99 mg/dL) 109 H Cancelled 122 H Calcium (8.4 - 10.2 mg/dL) 8.5 Cancelled 8.5 Phosphorus (2.5 - 4.5 mg/dL) 2.1 L Cancelled 2.0 L Magnesium (1.6 - 2.3 mg/dL) 1.7 Cancelled 1.8 Total Bilirubin (0.2 - 1.3 mg/dL) 1.3 Cancelled 1.2 AST (17 - 59 U/L) 63 H Cancelled 60 H ALT (21 - 72 U/L) 50 Cancelled 51 Albumin (3.5 - 5.0 g/dL) 1.8 L Cancelled 1.8 L Coagulation APTT (25 - 37 SEC) 87 H Hematology CBC w Diff NO MAN DIFF REQ WBC (4.8 - 10.8 /CUMM) 9.4 RBC (4.70 - 6.10 /CUMM) 3.83 L Hgb (14.0 - 18.0 G/DL) 12.1 L Hct (42 - 52 %) 36.7 L MCV (80.0 - 94.0 FL) 95.9 H MCH (27.0 - 31.0 PG) 31.6 H MCHC (33.0 - 37.0 G/DL) 32.9 L RDW (11.5 - 14.5 %) 17.7 H Plt Count (130 - 400 /CUMM) 115 L MPV (7.4 - 10.4 FL) 9.1 Gran % (42.2 - 75.2 %) 83.2 H Lymphocytes % (20.5 - 51.1 %) 10.6 L Monocytes % (1.7 - 9.3 %) 5.4 Eosinophils % (0 - 5 %) 0.6 Basophils % (0.0 - 2.0 %) 0.2 Absolute Granulocytes (1.4 - 6.5 /CUMM) 7.8 H Absolute Lymphocytes (1.2 - 3.4 /CUMM) 1.0 L Absolute Monocytes (0.10 - 0.60 /CUMM) 0.5 Absolute Eosinophils (0.0 - 0.7 /CUMM) 0.1 Absolute Basophils (0.0 - 0.2 /CUMM) 0 08/08 1535 Chemistry Sodium Cancelled Coagulation APTT (25 - 37 SEC) 82 H Exam General Appearance: intubated, lethargic Head: pinpoint pupils sluggishly reactive Neck: supple Respiratory: rhonchi Cardiovascular: regular rate/rhythm Gastrointestinal: soft Extremities: swelling, worsening erythema of left lower extremity, decrease edema from yesterday noted Current Medications: Current Medications Sig/Richard Start time Last Medication Dose Route Stop Time Status Admin Albuterol Sulfate 3 ML BID 08/06 1000 AC 08/09 INH 0800 Albuterol Sulfate 3 ML Q4P PRN 08/04 1330 AC 03 INH 0832 Aspirin 81 MG DAILY 08/09 1000 AC PO Aspirin 8,670.888 MG 0300 08/09 0300 CAN RI Aspirin 300 MG 0300 08/04 0300 DC 08/08 RI 0501 Ceftriaxone Sodium 1,000 MG DAILY@1900 03/07 1900 AC / IV 08/11 1859 1833 Dextrose/Water 1,000 ML .Q10H / 1115 AC 08/09 IV 0355 Fentanyl Citrate 25 MCG ONCE ONE 08/09 0145 DC / IV 08/09 0146 0141 Furosemide 40 MG Q12 / 2200 AC 08/08 IV 2111 Heparin Sodium 25,000 UNIT Q24H / 1545 DC 08/07 (Porcine) IV 1613 Sodium Chloride 500 ML Heparin Sodium/ 25,000 UNIT Q24H / 1500 AC / Dextrose IV 1736 Dextrose/Water 500 ML Magnesium Oxide 400 MG ONE ONE 08/08 2130 DC 08/08 PO 08/08 2131 2124 Magnesium Oxide 400 MG ONE ONE 08/08 1445 DC PO 08/08 1446 Magnesium Sulfate 1 GM ONCE ONE 08/09 0615 AC 08/09 Dextrose/Water 100 ML IV 08/09 1014 0656 Magnesium Sulfate 1 GM ONCE ONE 08/08 0815 DC 08/08 Dextrose/Water 100 ML IV 08/08 1214 1117 Metoprolol Tartrate 5 MG Q4 / 1515 AC 08/09 IV 0600 Nystatin 1 CYN BID PRN 08/03 0645 AC 08/08 TOP 0936 Pantoprazole Sodium 40 MG DAILY 08/03 1000 AC 08/08 IV 0933 Phosphate 250 MG ONCE ONE 08/09 06 DC PO 08/09 0601 Phosphate 250 MG ONCE ONE 08/08 2130 DC / PO 08/08 2131 0000 Potassium Chloride 20 MEQ ONCE ONE 08/09 0800 DC PO 08/09 0801 Potassium Chloride 40 MEQ ONCE ONE 08/09 0600 DC 08/09 PO 08/09 0601 0655 Potassium Chloride 40 MEQ ONCE ONE 08/08 2130 DC 08/08 PO 08/08 2131 2124 Impression/Plan Impression/Problem List Impression: 72 year old gentleman with past medical history significant for diastolic heart failure, hypertension syncope, per family he had an DC and had a stent placement at [facility] about 7 years ago, recent fall couple of days prior to admission, brought in by ambulance for altered mental status. On dmission found to have transaminitis, increased INR, elevated troponins. Afebrile overnight, worsening leukocytosis, platelet count trending up 115, sodium 149, creatinine 1.7 BUn 46, potassium 3.3, phosphorus 2.1, AST 63 ALT 50 , albumin 1.8 Altered mental status/encephalopathy Some improvement noted today Unclear etiology at this time. Unlikely to be septic encephalopathy as he did not come in presenting with sepsis like picture or hepatic encephalopathy as his ammonia is normal along with downtrending transaminitis, his transaminitis most likely secondary to congestion. DDX at this time: Cerebral edema versus hypoxic-ischemic encephalopathy, medication use cannot be ruled out as we are still unclear at to what medications he took prior to admission. Urine culture showed no growth, blood cultures showed no growth, urine antigens negative for strep pneumo and Legionella, CSF culture and Gram stain negative. HSV PCR pending Low complement levels, will follow-up cryoglobulin (hep C negative) Acetaminophen/salicycylates levels within normal CT head 3 showed no acute intracranial pathology, midline shift or hemorrhage CT abdomen and pelvis showed sigmoid diverticulosis without evidence of diverticulitis EEG done 08/06/17 revealed diffuse generalized slowing to delta range rhythms. The average amplitude is very low in the 5-10 microvolt range. Suggestive of diffuse cerebral dysfunction and a non-specific encephalopathy. ID and neuro on board appreciate recommendations Vit b12, ammonia levels wnl, UA neg for nitrates or leukocyte esterase No change in mental status noted with narcan 0.4 mg X2 doses and one time trial of flumazenil 0.5mg. LP done 08/06/17 not significant for infection will continue to monitor closely Acute Respiratory failure afebrile overnight, no leukocytosis, bandemia 8->15->1->9-> today multifactorial (aspiration/ worsening pulm edema) ATC TRC/nebs, keep head of bed elevated intubated overnight Chest x-ray done 08/09/17 :Tracheostomy tube tip lies approximately 9 cm above the hollis. Right PICC tip lies at the level of the upper SVC. No significant change from 08/08/2017. Mild prominence of the central vasculature and surrounding interstitium suggesting congestion. Discuss with respiratory to withdraw ET tube and will repeat chest x-ray. Spoke to Dr. Grijalva in IR regarding the line. Said that we can use the line as a midline for now. Will avoid pressors or any caustic substances such as vancomycin. If we need to converted we can get IR to advance. Continue diuresis ID recommending to watch him off of antibiotics Will continue diuresis Atrial fibrillation with Rapid ventricular rate Status post synchronized cardioversion Noted to have runs of NSVT, currently on IV metoprolol 5 mg every 4 Will replete potassium, magnesium and phosphorus today Chadvasc2 score= 5, with HAS-BLED score of 3 Continue IV heparin, will start warfarin / heparin bridge today IV Cardizem drip dc 08/06/17 A cardiogram done 08/02/2017 showed normal EF of 50% with inferoapical and apical hypokinesis and large pedicle thrombus Positive troponins peaked to 1.98 and trended down likely type II DC TFT wnl Aterial doppler showed patent deep arterial systems of the bilateral lower extremities. Deep arteries of the left calf were not clearly visualized, however , left dorsal pedis artery was documented as patent. cardiology on board appreciate recommendations Left upper extremity swelling IV infiltration versus DVT Elevate arm, apply cold compressions Remove IV line Obtain ultrasound to rule out DVT Transaminitis LTF's trending down Hepatitis panel and HIV nonreactive, Hypernatremia Sodium 149 today, D5W was decreased to 60 mL overnight, will increase to 100 mL today and repeat sodium later today, also increased flushes in his NG tube. will continue to monitor closely Thrombocytopenia 123->115> 99--> 111-> 4t SCORE = 4 intermediate probability Hit antibody 0.162, which is indeterminate, Serotonin assay pending (results will be in Sunday) Left leg Cellulitis Recent erythema noted, improved swelling given two doses of vancomycin On IV ceftriaxone day 6 of 7 Lower extremity Dopplers ruled out DVT RICHI-improving creatinine 1.7 BUn 46 likely ischemic ATN Continue to monitor closely On tube feeds-rate advanced today DVT: IV heparin full code guarded prognosis Problem List: 1. Elevated troponin 2. Rapid atrial fibrillation 3. Hypotension Pain Ratin Tomorrow's Labs & Rationales: ICU bundle, CBC Plan DVT/Prophylaxis: pharmacological
[2017-08-09 08:00] VITALS: BP 108/60
--- NOTE | 2017-08-09 08:29 | RADIOLOGY REPORT ---
EXAMINATION: XR PORTABLE CHEST CLINICAL INFORMATION: Evaluate positioning of the endotracheal tube and orogastric tube COMPARISON: Chest x-rays most recent prior dated 08/08/2017 TECHNIQUE: Portable frontal view of the chest was obtained. FINDINGS: Evaluation is limited due to technique and patient's body habitus. The endotracheal tube tip is at the level of hollis. It should be withdrawn by approximately 3 cm. Orogastric tube is difficult to follow in the lower part of the chest. Faint suggestion of the tip below the level of the diaphragm in the left upper quadrant. Stable mild cardiomegaly. Central pulmonary vascular congestion. Mild interstitial edema, right greater than left. Small bilateral pleural effusions with associated infiltrate or atelectasis, left greater than right. IMPRESSION: 1. Endotracheal tube tip is at the level of the hollis. It should be withdrawn by approximately 3 cm. 2. Limited assessment of the orogastric tube. Tip appears to be in the left upper quadrant. 3. Vascular congestion and interstitial edema, right greater than left. 4. Bilateral effusions with associated airspace disease, left greater than right.
--- NOTE | 2017-08-09 09:40 | RADIOLOGY REPORT ---
EXAMINATION: XR PORTABLE CHEST CLINICAL INFORMATION: Endotracheal tube adjustment COMPARISON: Chest x-ray most recent prior dated 08/09/2017 TECHNIQUE: Portable frontal view of the chest was obtained. FINDINGS: Examination is limited by technique. Endotracheal tube terminates approximately 4.6 cm above the hollis. Orogastric tube can be followed to the level of the lower chest. Assessment is limited due to patient's body habitus and portable technique. Limited assessment of the lungs due to motion and rotation. Stable Cardia mediastinal silhouette. Stable pleural effusion with associated airspace opacity. Stable vascular congestion. IMPRESSION: 1. Interval adjustment of endotracheal tube which appears to terminate approximately 4.6 cm above the hollis. 2. Examination is limited due to portable technique as detailed. 3. Stable pleural effusions with associated airspace opacity and vascular congestion.
--- NOTE | 2017-08-09 10:00 | PN- CRCU ---
Subjective HPI/Critical Care Issues: Appears to be little more awake however still obtunded. Probably did respond to my verbal commands this morning No other history could be obtained as he is intubated afebrile in sinus rhythm with frequent PACs Blood pressure has been running low On assist control 5 5040% 5 of PEEP and saturating 98% Continues to be on heparin and D5 water On Jevity low-dose with water flushes Did receive Lasix with no significant adequate diuresis Continues to be on IV fluids for his hypernatremia SIGNIFICANT DATA Chest x-ray reviewed Endotracheal tube is at the level of hollis should be withdrawn in the first x- ray and subsequent x-ray did show adequate position of the ET tube Orogastric tube appears to be in the left upper quadrant Interstitial edema noted bilateral airspace disease with bilateral effusion Creatinine stable at 1.7 Potassium low at 3.3 Bicarbonate continues to be elevated White count 9.4 hemoglobin 12.6 Platelets have been improving INR down to 1.45 from before Previous ABG reviewed So far all the cultures have been negative Objective Current Medications: Current Medications Sig/Richard Start time Last Medication Dose Route Stop Time Status Admin Albuterol Sulfate 3 ML BID 08/06 1000 AC 08/09 INH 0800 Albuterol Sulfate 3 ML Q4P PRN 08/04 1330 AC 08/06 INH 0832 Aspirin 81 MG DAILY 08/09 1000 AC 08/09 PO 0947 Aspirin 8,670.888 MG 0300 / 0300 CAN OK Aspirin 300 MG 0300 / 0300 DC 08/08 OK 0501 Ceftriaxone Sodium 1,000 MG DAILY@1900 08/08 1900 AC 08/08 IV 08/11 1859 1833 Dextrose/Water 1,000 ML .Q10H / 1115 AC / IV 0355 Fentanyl Citrate 25 MCG ONCE ONE / 0145 DC / IV / 0146 0141 Furosemide 40 MG Q12 / 2200 AC / IV 2111 Heparin Sodium 25,000 UNIT Q24H / 1545 DC 08/07 (Porcine) IV 1613 Sodium Chloride 500 ML Heparin Sodium/ 25,000 UNIT Q24H / 1500 AC / Dextrose IV 1736 Dextrose/Water 500 ML Magnesium Oxide 400 MG ONE ONE 08/08 2130 DC 08/08 PO 08/08 213 2124 Magnesium Oxide 400 MG ONE ONE 08/08 1445 DC PO 08/08 1446 Magnesium Sulfate 1 GM ONCE ONE 08/09 0615 AC / Dextrose/Water 100 ML IV 08/09 1014 0656 Magnesium Sulfate 1 GM ONCE ONE 08/08 0815 DC 08/08 Dextrose/Water 100 ML IV 08/08 1214 1117 Metoprolol Tartrate 5 MG Q4 08/05 1515 AC 08/09 IV 0600 Nystatin 1 CYN BID PRN 08/03 0645 AC 08/08 TOP 0936 Pantoprazole Sodium 40 MG DAILY 08/03 1000 AC 08/09 IV 0947 Phosphate 250 MG ONCE ONE 08/09 0600 DC 08/09 PO 08/09 0601 0946 Phosphate 250 MG ONCE ONE 08/08 2130 DC 08/09 PO 08/08 2131 0000 Potassium Chloride 20 MEQ ONCE ONE 08/09 0800 DC 08/09 PO 08/09 0801 0947 Potassium Chloride 40 MEQ ONCE ONE 08/09 0600 DC 08/09 PO 08/09 0601 0655 Potassium Chloride 40 MEQ ONCE ONE 08/08 2130 DC 08/08 PO 08/08 2131 2124 Vital Signs & I&O Last 24 Hrs of Vitals and I&O: Vital Signs Date Time Temp Pulse Resp B/P B/P Pulse O2 O2 Flow FiO2 Mean Ox Delivery Rate 03/08 0807 40 03/08 0601 40 03/08 0600 104 119/59 03/08 0400 97.6 88 18 97/63 03/08 0400 95 Ventilator 40% 03/08 0316 40 03/08 0242 98 117/66 03/08 0200 92 18 117/66 03/08 0027 40 03/08 0000 97.9 100 24 106/62 03/08 0000 97.9 100 24 106/62 95 Ventilator 40% 03/08 0000 95 Ventilator 40% 03/07 2217 40 03/07 2200 101 18 115/78 03/07 2153 101 115/78 03/07 2000 88 18 131/58 03/07 2000 94 Ventilator 45% 03/07 1912 40 03/07 1809 107 122/64 03/07 1800 107 22 114/50 03/07 1625 40 03/07 1600 99.4 91 18 112/62 03/07 1600 99.4 91 18 112/62 95 Ventilator 45% 03/07 1600 95 Ventilator 45% 03/07 1546 87 101/49 08/08 1407 40 08/08 1400 94 18 126/47 08/08 1200 98.1 91 18 108/54 08/08 1200 99 Ventilator 45% 08/08 1128 45 08/08 1117 101 138/60 08/08 1000 95 20 118/58 Intake & Output 08/09 1600 08/09 0800 08/09 0000 Intake Total 990 Output Total 550 Balance 440 Intake, IV 705 Intake, Tube 115 Feeding Intake, Tube 170 Irrigant Output, Urine 550 Impression/Plan Impression/Plan Impression/Plan: Gen - ill appearing HEENT - +ETT CV - RRR, no m/r/g Chest - coarse breath sounds anteriorly Abd - soft, NTND Ext - 1+ edema with lower ext erythema and blackened patches Neuro - not meaningfully responsive IMPRESSION This is a 72-year-old gentleman with history of diabetes, previous heart failure diastolic, previous syncope, came into the hospital as was brought in from his home as his landlord found him on the floor. Patient apparently had had a previous fall in the snow as well.In the emergency room he was noted to have significant atrial fibrillation with tachycardia and he was hypotensive and hemodynamically unstable and had to have emergent cardioversion as his blood pressure was slow and he was unstable. Per history he has been non-compliant and has not seen any physicians in the recent past., Initially pt was conversant but slightly confused and since arriving in the ed he became less responsive and agitated requiring ativan and now appears to be worse with worsening mental status, with no fever (Apparently was lucid when he came in and he did not have any temperature and he was not complaining of a headache). Subsequently he became more confused and had to require large doses of Ativan as he was cardioverted emergently by Dr. Hitchcock. ISSUES * Recent worsening overall mental status status post fall with no clinical or lab evidence suggestive of significant meningitis, LP not consistant with infection. Apparently his mental status when he came in was relatively stable and patient now has decreased mentation which is slowly improving dif dx include brain stem stroke (lv clot and pafib) Neuro and ID on board, * Sig hypoxic and hypercarbic resp failure mainly due to Systolic chf and afib compounded by decreased mental status and inability to maintain his secretions now status post intubation * PUlm edema with effusions with acute lung injury * Initial Rapid atrial fibrillation with significantly large intraventricular clot with PAFIb and at times flutter now in sinus on heparin * Prob pneumonia now with no fever * Total body fluid overload with lower extremity edema with bilateral pleural effusion, atelectasis, clinical evidence suggestive of systolic and diastolic heart failure, with resolved congested liver * Type II ND versus Acute coronary syndrome followed by cardio * Bilateral pulmonary infiltrates with thick yellow-green sputum suggestive of pneumonia initially now completing abx * Chronic kidney disease with acute renal insufficiency, appears to be improving * No DVT/ No sig arterial ischemia * Recent Worsening performance status with previous hypertension hyperlipidemia and medical noncompliance * Sig lower ext edema due and chronic venoustasis changes * Low platelets needs to be followed (mild improvement) * Unlikely pe but cannot rule out and not a candidate for vq and pt anticoag anyway REC Continue mechanical ventilation DC ceftriaxone after seven day rx Increase free water bolus and reduce d5w to 50 cc and watch sodium Increase his tube feeding to 40 cc Keep hob up by 35 degree Rpt cxr in am Periodex oral care tid Start warfarin down ng with heparin Check inr Cont ppi Keep potassium more than 4 and replace down ng tube Ipratropim neb prn Keep mag more than 4 Pt continues to be critically ill
[2017-08-09 10:57] LABS: PT 17.7 SEC (9.4-12.5)
--- NOTE | 2017-08-09 11:37 | PN- Nephrology ---
Assessment/Plan Nephrology Assessment: RICHI - Likely ischemic ATN in the setting of A fib with RVR/hypotension - improved and stabilized at 1.6-1.7 (not clear exactly what his baseline Cr is - got down to 1.1 in 2011). No evidence of obstruction on Renal US. Volume expanded requiring IV diuresis. Low complements can be associated with GN - no evidence of liver disease - ?infection related GN. Has already had a neg LIYAH ( lupus), no peripheral eosinophilia (suggestive of cholesterol emboli), Hep C ( cryoglobulinemia) so not sure exactly what to make of this in terms of clinical relevance other than potentially an infection related GN. Volume overload - Still with edema on chest x-ray - I would cont diuretics as SCr and BP tolerate. Hypernatremia - 2/2 decreased free water intake. Needs more water. Altered mental status - Underlying etiology still remains unclear with an essentially negative work-up thus far. Suggestion: -Would cont 40mg IV lasix BID -D5W 100cc/hr -Check cryoglobulins Please call [phone] with ?'s Subjective Subjective: SCr 1.7 - stable Na 149 - essentially unchanged Remains intubated Not on pressors 2.8L UOP and 5L the day prior Objective Vital Signs and I&Os Vital Signs Date Time Temp Pulse Resp B/P B/P Pulse O2 O2 Flow FiO2 Mean Ox Delivery Rate / 0807 40 / 0800 98 Ventilator 40% / 0800 99.0 85 18 108/60 98 Ventilator 40% 03/08 0601 40 03/08 0600 104 119/59 03/08 0400 97.6 88 18 97/63 03/08 0400 95 Ventilator 40% 03/08 0316 40 03/08 0242 98 117/66 03/08 0200 92 18 117/66 03/08 0027 40 03/08 0000 97.9 100 24 106/62 03/08 0000 97.9 100 24 106/62 95 Ventilator 40% 03/08 0000 95 Ventilator 40% 03/07 2217 40 03/07 2200 101 18 115/78 03/07 2153 101 115/78 03/07 2000 88 18 131/58 03/07 2000 94 Ventilator 45% 03/07 1912 40 03/ 1809 107 122/64 03/07 1800 107 22 114/50 03/07 1625 40 03/07 1600 99.4 91 18 112/62 03/07 1600 99.4 91 18 112/62 95 Ventilator 45% 03/07 1600 95 Ventilator 45% /07 1546 87 101/49 03/07 1407 40 03/07 1400 94 18 126/47 03/07 1200 98.1 91 18 108/54 03/07 1200 99 Ventilator 45% Intake & Output / 1600 /08 0400 03/07 1600 03/ 0400 03/ 1600 03/ 0400 Intake Total 990 2054 944 602 457 Output Total 550 2300 1000 4000 1000 Balance 440 - -543 Intake, Blood 291 Product Intake, IV 705 1546 746 602 166 Intake, Oral 0 0 Intake, Tube 115 248 98 Feeding Intake, Tube 170 260 100 Irrigant Number 1 0 0 0 Bowel Movements Output, Urine 550 2300 1000 4000 1000 Patient 233 lb 236 lb 236 lb Weight Weight Bed scale Bed scale Measurement Method Physical Exam: Gen - ill appearing HEENT - +ETT CV - RRR, no m/r/g Chest - coarse breath sounds anteriorly Abd - soft, NTND Ext - less edema with lower ext erythema and blackened patches Neuro - not meaningfully responsive Current Medications: Current Medications Sig/Richard Start time Last Medication Dose Route Stop Time Status Admin Albuterol Sulfate 3 ML BID / 1000 AC / INH 0800 Albuterol Sulfate 3 ML Q4P PRN / 1330 AC 03 INH 0832 Aspirin 81 MG DAILY / 1000 AC / PO 0947 Aspirin 8,670.888 MG 0300 / 0300 CAN MO Aspirin 300 MG 0300 / 0300 DC 03/ MO 0501 Ceftriaxone Sodium 1,000 MG DAILY@1900 03/07 1900 AC / IV 08/11 1859 1833 Dextrose/Water 1,000 ML .[id number] / 1115 AC / IV 0355 Fentanyl Citrate 25 MCG ONCE ONE / 0145 DC 03/ IV /08 0146 0141 Furosemide 40 MG Q12 / 2200 AC 03/ IV 2111 Heparin Sodium 25,000 UNIT Q24H / 1545 DC 08/07 (Porcine) IV 1613 Sodium Chloride 500 ML Heparin Sodium/ 25,000 UNIT Q24H 03/07 1500 AC 08/08 Dextrose IV 1736 Dextrose/Water 500 ML Magnesium Oxide 400 MG ONE ONE 08/08 2130 DC 08/08 PO 08/08 2130 2124 Magnesium Oxide 400 MG ONE ONE 08/08 1445 DC PO 08/08 1446 Magnesium Sulfate 1 GM ONCE ONE 08/09 0615 DC 08/09 Dextrose/Water 100 ML IV 08/09 1014 0656 Magnesium Sulfate 1 GM ONCE ONE 08/08 0815 DC 08/08 Dextrose/Water 100 ML IV 08/08 1214 1117 Metoprolol Tartrate 5 MG Q4 08/05 1515 AC 08/09 IV 0600 Nystatin 1 CYN BID PRN 08/03 0645 AC 08/08 TOP 0936 Pantoprazole Sodium 40 MG DAILY 08/03 1000 AC 08/09 IV 0947 Phosphate 250 MG ONCE ONE 08/09 06 DC 08/09 PO 08/09 0601 0946 Phosphate 250 MG ONCE ONE 08/08 2130 DC 08/09 PO 08/08 2131 0000 Potassium Chloride 20 MEQ ONCE ONE 08/09 08 DC 08/09 PO 08/09 0801 0947 Potassium Chloride 40 MEQ ONCE ONE 08/09 06 DC 08/09 PO 08/09 0601 0655 Potassium Chloride 40 MEQ ONCE ONE 08/08 213 DC 08/08 PO 08/08 213 2124 Results Pertinent Lab Results: Laboratory Tests 08/09 08/09 08/09 1017 0322 0300 Chemistry Sodium (137 - 145 mmol/L) 149 H Cancelled Potassium (3.5 - 5.1 mmol/L) 3.3 L Cancelled Chloride (98 - 107 mmol/L) 106 Cancelled Carbon Dioxide (22 - 30 mmol/L) 37 H Cancelled Anion Gap (5 - 16) 5 Cancelled BUN (9 - 20 mg/dL) 46 H Cancelled Creatinine (0.7 - 1.2 mg/dL) 1.7 H Cancelled Estimated GFR (>60 ml/min) 40 L Glucose (65 - 99 mg/dL) 109 H Cancelled Calcium (8.4 - 10.2 mg/dL) 8.5 Cancelled Phosphorus (2.5 - 4.5 mg/dL) 2.1 L Cancelled Magnesium (1.6 - 2.3 mg/dL) 1.7 Cancelled Total Bilirubin (0.2 - 1.3 mg/dL) 1.3 Cancelled AST (17 - 59 U/L) 63 H Cancelled ALT (21 - 72 U/L) 50 Cancelled Albumin (3.5 - 5.0 g/dL) 1.8 L Cancelled Coagulation PT (9.4 - 12.5 SEC) Cancelled 17.7 H INR (0.90 - 1.17) Cancelled 1.62 H APTT (25 - 37 SEC) 87 H Hematology CBC w Diff NO MAN DIFF REQ WBC (4.8 - 10.8 /CUMM) 9.4 RBC (4.70 - 6.10 /CUMM) 3.83 L Hgb (14.0 - 18.0 G/DL) 12.1 L Hct (42 - 52 %) 36.7 L MCV (80.0 - 94.0 FL) 95.9 H MCH (27.0 - 31.0 PG) 31.6 H MCHC (33.0 - 37.0 G/DL) 32.9 L RDW (11.5 - 14.5 %) 17.7 H Plt Count (130 - 400 /CUMM) 115 L MPV (7.4 - 10.4 FL) 9.1 Gran % (42.2 - 75.2 %) 83.2 H Lymphocytes % (20.5 - 51.1 %) 10.6 L Monocytes % (1.7 - 9.3 %) 5.4 Eosinophils % (0 - 5 %) 0.6 Basophils % (0.0 - 2.0 %) 0.2 Absolute Granulocytes (1.4 - 6.5 /CUMM) 7.8 H Absolute Lymphocytes (1.2 - 3.4 /CUMM) 1.0 L Absolute Monocytes (0.10 - 0.60 /CUMM) 0.5 Absolute Eosinophils (0.0 - 0.7 /CUMM) 0.1 Absolute Basophils (0.0 - 0.2 /CUMM) 0 08/08 1535 0810 Chemistry Sodium (137 - 145 mmol/L) 146 H Cancelled Potassium (3.5 - 5.1 mmol/L) 3.5 Chloride (98 - 107 mmol/L) 106 Carbon Dioxide (22 - 30 mmol/L) 37 H Anion Gap (5 - 16) 3 L BUN (9 - 20 mg/dL) 50 H Creatinine (0.7 - 1.2 mg/dL) 1.6 H Estimated GFR (>60 ml/min) 43 L Glucose (65 - 99 mg/dL) 122 H Calcium (8.4 - 10.2 mg/dL) 8.5 Phosphorus (2.5 - 4.5 mg/dL) 2.0 L Magnesium (1.6 - 2.3 mg/dL) 1.8 Total Bilirubin (0.2 - 1.3 mg/dL) 1.2 AST (17 - 59 U/L) 60 H ALT (21 - 72 U/L) 51 Albumin (3.5 - 5.0 g/dL) 1.8 L Coagulation APTT (25 - 37 SEC) 82 H 58 H 08/08 08/08 0505 0355 Blood Gas pH (7.35 - 7.45 PH) 7.43 pCO2 (35 - 45 TORR) 49 H pO2 (80 - 100 TORR) 289 H HCO3 (21 - 28 MEQ/L) 32 H ABG O2 Sat (Measured) (>96.0 %) 99.0 P-50 (Temp Corrected) Y Carboxyhemoglobin (1.5 - 5.0 %) 0.1 L O2 Concentration % 100% Temperature (97.0 - 100.0 FARH) 97.4 Respiration Rate (BPM) 18 O2 Delivery Method ESPRIT Vent Mode AC Expiratory Pressure (CMH2O/P) 5 Tidal Volume (CC) 550 Chemistry Sodium (137 - 145 mmol/L) 151 H Potassium (3.5 - 5.1 mmol/L) 4.0 Chloride (98 - 107 mmol/L) 107 Carbon Dioxide (22 - 30 mmol/L) 37 H Anion Gap (5 - 16) 7 BUN (9 - 20 mg/dL) 45 H Creatinine (0.7 - 1.2 mg/dL) 1.6 H Estimated GFR (>60 ml/min) 43 L Glucose (65 - 99 mg/dL) 122 H Calcium (8.4 - 10.2 mg/dL) 8.9 Phosphorus (2.5 - 4.5 mg/dL) 2.7 Magnesium (1.6 - 2.3 mg/dL) 1.8 Total Bilirubin (0.2 - 1.3 mg/dL) 1.1 AST (17 - 59 U/L) 55 ALT (21 - 72 U/L) 53 Albumin (3.5 - 5.0 g/dL) 2.0 L Hematology CBC w Diff MAN DIFF ORDERED WBC (4.8 - 10.8 /CUMM) 8.2 RBC (4.70 - 6.10 /CUMM) 4.31 L Hgb (14.0 - 18.0 G/DL) 13.8 L Hct (42 - 52 %) 41.6 L MCV (80.0 - 94.0 FL) 97.4 H MCH (27.0 - 31.0 PG) 31.7 H MCHC (33.0 - 37.0 G/DL) 33.1 RDW (11.5 - 14.5 %) 18.0 H Plt Count (130 - 400 /CUMM) 111 L MPV (7.4 - 10.4 FL) 8.5 Gran % (42.2 - 75.2 %) 86.7 H Lymphocytes % (20.5 - 51.1 %) 7.1 L Monocytes % (1.7 - 9.3 %) 5.9 Eosinophils % (0 - 5 %) 0.2 Basophils % (0.0 - 2.0 %) 0.1 Absolute Granulocytes (1.4 - 6.5 /CUMM) 7.1 H Segmented Neutrophils (42.2 - 75.2 %) 83 H Band Neutrophils (0.0 - 5.0 %) 9 H Absolute Lymphocytes (1.2 - 3.4 /CUMM) 0.6 L Lymphocytes (20.5 - 51.1 %) 6 L Monocytes (1.7 - 9.3 %) 2 Absolute Monocytes (0.10 - 0.60 /CUMM) 0.5 Absolute Eosinophils (0.0 - 0.7 /CUMM) 0 Absolute Basophils (0.0 - 0.2 /CUMM) BC# Platelet Estimate (ADEQUATE) ADEQUATE Polychromasia 1+ Poikilocytosis 1+ Anisocytosis 1+ Target Cells 1+ [place] Cells 1+ Elliptocytes 1+ Miscellaneous Phlebotomy Draw Site RIGHT RADIAL 08/08 08/08 08/08 08/08 0300 0150 0100 0002 Blood Gas pH (7.35 - 7.45 PH) 7.34 L pCO2 (35 - 45 TORR) 63 *H pO2 (80 - 100 TORR) 77 L HCO3 (21 - 28 MEQ/L) 34 H ABG O2 Sat (Measured) (>96.0 %) 94.0 L P-50 (Temp Corrected) Y Carboxyhemoglobin (1.5 - 5.0 %) 0.5 L O2 Concentration % 95% 45 LPM Temperature (97.0 - 100.0 FARH) 97.3 O2 Delivery Method HI MAURICE N/C Chemistry Sodium (137 - 145 mmol/L) 150 H Cancelled 152 H Potassium (3.5 - 5.1 mmol/L) 4.0 Cancelled 4.3 Chloride (98 - 107 mmol/L) 108 H Cancelled 110 H Carbon Dioxide (22 - 30 mmol/L) 36 H Cancelled 35 H Anion Gap (5 - 16) 6 Cancelled 8 BUN (9 - 20 mg/dL) 44 H Cancelled 44 H Creatinine (0.7 - 1.2 mg/dL) 1.8 H Cancelled 1.6 H Estimated GFR (>60 ml/min) 37 L 43 L Glucose (65 - 99 mg/dL) 144 H Cancelled 152 H Calcium (8.4 - 10.2 mg/dL) 8.8 Cancelled 9.1 Phosphorus (2.5 - 4.5 mg/dL) 3.3 Cancelled 2.9 Magnesium (1.6 - 2.3 mg/dL) 1.9 Cancelled 1.6 Total Bilirubin (0.2 - 1.3 mg/dL) 1.2 Cancelled 1.3 AST (17 - 59 U/L) 57 Cancelled 63 H ALT (21 - 72 U/L) 57 Cancelled 56 Albumin (3.5 - 5.0 g/dL) 2.0 L Cancelled 2.2 L Coagulation APTT (25 - 37 SEC) 58 H Miscellaneous Phlebotomy Draw Site RIGHT RADIAL 08/07 08/07 08/07 08/07 2300 1940 1830 1630 Chemistry Sodium (137 - 145 mmol/L) Cancelled 148 H Cancelled 150 H Potassium (3.5 - 5.1 mmol/L) Cancelled 3.2 L Cancelled 3.4 L Chloride (98 - 107 mmol/L) Cancelled 105 Cancelled 107 Carbon Dioxide (22 - 30 mmol/L) Cancelled 37 H Cancelled 36 H Anion Gap (5 - 16) Cancelled 6 Cancelled 6 BUN (9 - 20 mg/dL) Cancelled 45 H Cancelled 49 H Creatinine (0.7 - 1.2 mg/dL) Cancelled 1.6 H Cancelled 1.6 H Estimated GFR (>60 ml/min) 43 L 43 L BUN/Creatinine Ratio (7 - 25 %) 30.6 H Glucose (65 - 99 mg/dL) Cancelled 116 H Cancelled Calcium (8.4 - 10.2 mg/dL) Cancelled 8.9 Cancelled Phosphorus (2.5 - 4.5 mg/dL) Cancelled 3.2 Cancelled Magnesium (1.6 - 2.3 mg/dL) Cancelled 1.6 Cancelled Total Bilirubin (0.2 - 1.3 mg/dL) Cancelled 1.2 Cancelled AST (17 - 59 U/L) Cancelled 61 H Cancelled ALT (21 - 72 U/L) Cancelled 60 Cancelled Albumin (3.5 - 5.0 g/dL) Cancelled 2.1 L Cancelled Coagulation APTT (25 - 37 SEC) 113 *H 08/07 08/07 08/07 08/07 1300 1040 0930 0600 Blood Gas pH (7.35 - 7.45 PH) 7.42 pCO2 (35 - 45 TORR) 48 H pO2 (80 - 100 TORR) 79 L HCO3 (21 - 28 MEQ/L) 30 H ABG O2 Sat (Measured) (>96.0 %) 96.0 P-50 (Temp Corrected) YES Carboxyhemoglobin (1.5 - 5.0 %) 0 L O2 Concentration % 65% Temperature (97.0 - 100.0 FARH) 98.0 O2 Delivery Method HFNC Coagulation PT (9.4 - 12.5 SEC) 15.9 H INR (0.90 - 1.17) 1.45 H APTT (25 - 37 SEC) 56 H Cancelled Miscellaneous Ref Lab Test Result Pending Phlebotomy Draw Site RIGHT RADIAL 08/07 08/07 08/07 0445 0400 0140 Chemistry Sodium (137 - 145 mmol/L) Cancelled 150 H Potassium (3.5 - 5.1 mmol/L) Cancelled 3.7 Chloride (98 - 107 mmol/L) Cancelled 110 H Carbon Dioxide (22 - 30 mmol/L) Cancelled 28 Anion Gap (5 - 16) Cancelled 12 BUN (9 - 20 mg/dL) Cancelled 51 H Creatinine (0.7 - 1.2 mg/dL) Cancelled 1.8 H Estimated GFR (>60 ml/min) 37 L BUN/Creatinine Ratio Cancelled Glucose (65 - 99 mg/dL) 88 Calcium (8.4 - 10.2 mg/dL) 9.0 Phosphorus (2.5 - 4.5 mg/dL) 3.2 Magnesium (1.6 - 2.3 mg/dL) 1.9 Total Bilirubin (0.2 - 1.3 mg/dL) 1.2 AST (17 - 59 U/L) 65 H ALT (21 - 72 U/L) 66 Albumin (3.5 - 5.0 g/dL) 2.4 L Coagulation APTT (25 - 37 SEC) 43 H Hematology CBC w Diff MAN DIFF ORDERED Cancelled WBC (4.8 - 10.8 /CUMM) 9.0 Cancelled RBC (4.70 - 6.10 /CUMM) 4.86 Cancelled Hgb (14.0 - 18.0 G/DL) 15.5 Cancelled Hct (42 - 52 %) 47.0 Cancelled MCV (80.0 - 94.0 FL) 96.6 H Cancelled MCH (27.0 - 31.0 PG) 31.9 H Cancelled MCHC (33.0 - 37.0 G/DL) 33.0 Cancelled RDW (11.5 - 14.5 %) 17.7 H Cancelled Plt Count (130 - 400 /CUMM) 99 L Cancelled MPV (7.4 - 10.4 FL) 8.6 Cancelled Gran % (42.2 - 75.2 %) 87.9 H Lymphocytes % (20.5 - 51.1 %) 5.0 L Monocytes % (1.7 - 9.3 %) 7.0 Eosinophils % (0 - 5 %) 0.1 Basophils % (0.0 - 2.0 %) 0 Absolute Granulocytes (1.4 - 6.5 /CUMM) 7.9 H Segmented Neutrophils (42.2 - 75.2 %) 88 H Band Neutrophils (0.0 - 5.0 %) 1 Absolute Lymphocytes (1.2 - 3.4 /CUMM) 0.5 L Lymphocytes (20.5 - 51.1 %) 5 L Monocytes (1.7 - 9.3 %) 6 Absolute Monocytes (0.10 - 0.60 /CUMM) 0.6 Absolute Eosinophils (0.0 - 0.7 /CUMM) 0 Absolute Basophils (0.0 - 0.2 /CUMM) 0 Platelet Estimate (ADEQUATE) DECREASED Polychromasia 1+ Poikilocytosis 2+ Ovalocytes 1+ [place] Cells 1+ Other Body Source F[place] Total RBCs Counted (%) 100 08/06 08/06 08/06 08/06 1730 1700 1700 1700 Coagulation APTT Cancelled Miscellaneous Ref Lab Test Result Pending Ref Lab Test Result Pending Ref Lab Test Result Pending Pending Ref Lab Test Result Pending Other Body Source CSF WBC (0 - 5 /CUMM) 3 CSF RBC (-0 /CUMM) 3 H CSF Comment CSF Glucose (40 - 70 mg/dL) 73 H CSF LDH (U/L) 197 CSF Total Protein (12 - 60 mg/dL) 91 H CSF Albumin Pending CSF IgG Pending IgG, Serum (MS) Pending Serum Albumin Pending CSF IgG Synth Rate MS Pending CSF/Serum IgG Index Pending Serology Herpes Simplex Source Pending HSV I DNA PCR Pending HSV II DNA PCR Pending 08/06 08/06 1416 1330 Blood Gas pH (7.35 - 7.45 PH) 7.34 L pCO2 (35 - 45 TORR) 49 H pO2 (80 - 100 TORR) 80 HCO3 (21 - 28 MEQ/L) 16 L ABG O2 Sat (Measured) (>96.0 %) 94.0 L Carboxyhemoglobin (1.5 - 5.0 %) 0.5 L O2 Concentration % 75% O2 Delivery Method HFNC, 45 FLOW Immunology Heparin-induced Plt Ab (NEGATIVE) NEGATIVE Heparin-PF4 AB OD (<OR= 0.300 OD UNITS) 0.162 Miscellaneous Phlebotomy Draw Site LEFT RADIAL Imaging/Other Studies: Chest X-ray IMPRESSION: 1. Endotracheal tube tip is at the level of the hollis. It should be withdrawn by approximately 3 cm. 2. Limited assessment of the orogastric tube. Tip appears to be in the left upper quadrant. 3. Vascular congestion and interstitial edema, right greater than left. 4. Bilateral effusions with associated airspace disease, left greater than right.
[2017-08-09 16:00] VITALS: BP 96/60
[2017-08-09 16:45] LABS: PTT 72 SEC (25-37)
--- NOTE | 2017-08-09 18:06 | ULTRASOUND REPORT ---
EXAMINATION: DUPLEX DOPPLER UPPER EXTREMITY, left CLINICAL INFORMATION: Edema. Swelling. Discoloration. COMPARISON: None. TECHNIQUE: Duplex Doppler performed of left upper extremity deep veins with grayscale, color Doppler and spectral Doppler examination. FINDINGS: There is no evidence of deep vein thrombosis. Normal vascular flow is seen in the internal jugular vein, subclavian vein, axillary vein, brachial vein, basilic vein, cephalic vein and antecubital vein. IMPRESSION: No evidence of deep vein thrombosis.
--- NOTE | 2017-08-09 22:28 | PN- Cardiology ---
Subjective Subjective: * Patient was intubated dueto respiratory distress. No improvement in mental status. * sinus rhythm with PAC's and PVC's * bilateral pleural effusions and pulmonary congestion * a short run of NSVT noted Objective Vital Signs and I&Os Vital Signs Date Time Temp Pulse Resp B/P B/P Pulse O2 O2 Flow FiO2 Mean Ox Delivery Rate 08/09 2113 93 115/80 / 2000 97 Ventilator 35% / 1940 35 03/08 1610 40 /08 1600 97 Ventilator 35% / 1600 98.4 100 18 96/60 97 Ventilator 35% 03/08 1411 40 03/08 1400 100 18 111/77 03/08 1200 96 Ventilator 40% 03/08 1151 40 03/08 0807 40 03/08 0800 98 Ventilator 40% /08 0800 99.0 85 18 108/60 98 Ventilator 40% 03/08 0601 40 03/08 0600 104 119/59 03/08 0400 97.6 88 18 97/63 03/08 0400 95 Ventilator 40% /08 0316 40 03/08 0242 98 117/66 03/08 0200 92 18 117/66 03/08 0027 40 03/08 0000 97.9 100 24 106/62 03/08 0000 97.9 100 24 106/62 95 Ventilator 40% 03/08 0000 95 Ventilator 40% Intake & Output / 1600 03/08 0800 03/08 0000 03/07 1600 03/07 0800 03/07 0000 Intake Total 4226 833 7241 1036 944 Output Total 425 572 846 0471 1000 Balance 763 440 268 -514 -56 Intake, IV 678 705 770 776 746 Intake, Oral 0 Intake, Tube 250 115 148 100 98 Feeding Intake, Tube 260 170 100 160 100 Irrigant Number 0 1 0 0 Bowel Movements Output, Urine 425 576 945 1687 1000 Patient 233 lb 236 lb Weight Weight Bed scale Measurement Method Physical Exam: General: WD/obese; intubated; obtunded Neck: no JVD, no carotid bruit Heart: RRR, no murmur Lungs: clear bilaterally Extremities: 2+ bilateral leg edema with bilateral erythema L>R Assessment/Plan Assessment/Plan * This patient is now intubated and continues to be obtunded. An EEG reportedly showed low voltage. No evidence of intracerebral bleed or trauma or CVA on his head CT. Continue to avoid all sedation. The patient is now intubated with mild pulmonary vascular congestion. Maintain adequate oxygenation. An hypoxic encephalopathy is suspected as a cause of his mental status abnormality verses a brain stem stroke. A repeat EEG is being considered. * This patient had a rise in cardiac enzymes consistent with a type 2 OK. He has no chest discomfort and there are no clear ST segment elevations. Monitor his cardiac enzymes until they peak. He will not be able to tolerate nitrates due to his blood pressure which dropped after receiving NTG by EMS. Rate control will be the most effective means of limiting any myocardial ischemia. Continue aspirin 325mg daily. * Atrial fibrillation. It is unknown how long this patient had been in atrial fibrillation but due to hemodynamic instability he was cardioverted to a sinus rhythm and is hemodynamically improved. 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 Will proceed with a NOELLE to differentiate thrombus from tumor. Continue telemetry? Yes
[2017-08-10] VITALS: BP 100/70
[2017-08-10 04:17] LABS: ABSOLUTE BASOPHIL COUNT 0 /CUMM (0.0-0.2); ABSOLUTE EOSINOPHIL COUNT 0.2 /CUMM (0.0-0.7); ABSOLUTE GRANULOCYTE CT 8.8 /CUMM (1.4-6.5); ABSOLUTE LYMPH COUNT 1.1 /CUMM (1.2-3.4); ABSOLUTE MONOCYTE COUNT 0.5 /CUMM (0.10-0.60); BASOPHIL % 0.1 % (0.0-2.0); EOSINOPHIL % 1.9 % (0-5); GRANULOCYTE % 82.7 % (42.2-75.2); HEMATOCRIT 34.3 % (42-52); MEAN CORPUSCULAR HGB 31.4 PG (27.0-31.0); MEAN CORPUSCULAR HGB CONC 32.6 G/DL (33.0-37.0); MEAN CORPUSCULAR VOLUME 96.6 FL (80.0-94.0); MEAN PLATELET VOLUME 9.1 FL (7.4-10.4); PLATELET COUNT 125 /CUMM (130-400); RBC DISTRIBUTION WIDTH 17.3 % (11.5-14.5); RED BLOOD CELL CT 3.55 /CUMM (4.70-6.10); WHITE BLOOD CELL COUNT 10.6 /CUMM (4.8-10.8)
[2017-08-10 04:26] LABS: PTT 67 SEC (25-37)
--- NOTE | 2017-08-10 07:46 | PN- Resident CRCU ---
Subjective HPI/CRCU Issues: Intubated Altered mental status A. fib with RVR Apical thrombus Hypoxemic respiratory failure Type II RI RICHI 24 Hour Events: no overnight events reported. Seen and examined patient today. Responsiveness same as yesterday. Some improvement in erythema and edema of his left leg noted today. Tmax 99.8, SR heart rate 90-94 Blood pressure 100-118 systolic, 59-62 diastolic Currently ventilated AC 18/550/35/5 saturating 93% Daily intake/output 3351/2975 total I/O US-UNILATERAL VENOUS DOPPLER 08/09/17 No evidence of deep vein thrombosis. Normal vascular flow is seen in the internal jugular vein, subclavian vein, axillary vein, brachial vein, basilic vein, cephalic vein and antecubital vein. Objective Vital Signs & I&O Last 8 Hrs of Vitals and I&O: Intake & Output 08/10 1600 08/10 0800 08/10 0000 Intake Total 1018 1145 Output Total 1700 850 Balance -682 295 Intake, IV 321 690 Intake, Tube 457 255 Feeding Intake, Tube 240 200 Irrigant Number 0 1 Bowel Movements Output, Urine 1700 850 Laboratory Tests 08/10 08/10 08/09 0400 0400 2110 Chemistry Sodium (137 - 145 mmol/L) 146 H 145 Potassium (3.5 - 5.1 mmol/L) 3.7 3.9 Chloride (98 - 107 mmol/L) 106 105 Carbon Dioxide (22 - 30 mmol/L) 36 H 35 H Anion Gap (5 - 16) 5 5 BUN (9 - 20 mg/dL) 47 H 46 H Creatinine (0.7 - 1.2 mg/dL) 1.6 H 1.6 H Estimated GFR (>60 ml/min) 43 L 43 L Glucose (65 - 99 mg/dL) 122 H 107 H Calcium (8.4 - 10.2 mg/dL) 8.1 L 8.1 L Phosphorus (2.5 - 4.5 mg/dL) 2.3 L 2.1 L Magnesium (1.6 - 2.3 mg/dL) 1.7 1.8 Total Bilirubin (0.2 - 1.3 mg/dL) 1.3 1.3 AST (17 - 59 U/L) 102 H 90 H ALT (21 - 72 U/L) 59 55 Albumin (3.5 - 5.0 g/dL) 1.8 L 1.8 L Coagulation PT (9.4 - 12.5 SEC) 18.0 H INR (0.90 - 1.17) 1.64 H APTT (25 - 37 SEC) Cancelled 67 H Hematology CBC w Diff NO MAN DIFF REQ WBC (4.8 - 10.8 /CUMM) 10.6 RBC (4.70 - 6.10 /CUMM) 3.55 L Hgb (14.0 - 18.0 G/DL) 11.2 L Hct (42 - 52 %) 34.3 L MCV (80.0 - 94.0 FL) 96.6 H MCH (27.0 - 31.0 PG) 31.4 H MCHC (33.0 - 37.0 G/DL) 32.6 L RDW (11.5 - 14.5 %) 17.3 H Plt Count (130 - 400 /CUMM) 125 L MPV (7.4 - 10.4 FL) 9.1 Gran % (42.2 - 75.2 %) 82.7 H Lymphocytes % (20.5 - 51.1 %) 10.3 L Monocytes % (1.7 - 9.3 %) 5.0 Eosinophils % (0 - 5 %) 1.9 Basophils % (0.0 - 2.0 %) 0.1 Absolute Granulocytes (1.4 - 6.5 /CUMM) 8.8 H Absolute Lymphocytes (1.2 - 3.4 /CUMM) 1.1 L Absolute Monocytes (0.10 - 0.60 /CUMM) 0.5 Absolute Eosinophils (0.0 - 0.7 /CUMM) 0.2 Absolute Basophils (0.0 - 0.2 /CUMM) 0 Immunology Cryoglobulin Interp Pending 08/09 08/09 1600 1343 Chemistry Sodium (137 - 145 mmol/L) 146 H Potassium (3.5 - 5.1 mmol/L) 3.8 Chloride (98 - 107 mmol/L) 106 Carbon Dioxide (22 - 30 mmol/L) 37 H Anion Gap (5 - 16) 4 L BUN (9 - 20 mg/dL) 46 H Creatinine (0.7 - 1.2 mg/dL) 1.6 H Estimated GFR (>60 ml/min) 43 L BUN/Creatinine Ratio (7 - 25 %) 28.8 H Phosphorus (2.5 - 4.5 mg/dL) 2.0 L Coagulation APTT (25 - 37 SEC) 72 H Exam General Appearance: intubated Cardiovascular: regular rate/rhythm Gastrointestinal: normal bowel sounds, soft, non-tender Extremities: pedal edema Current Medications: Current Medications Sig/Richard Start time Last Medication Dose Route Stop Time Status Admin Albuterol Sulfate 3 ML BID 08/06 1000 DC 08/09 INH 0800 Albuterol Sulfate 3 ML Q4P PRN 08/04 1330 AC 08/06 INH 0832 Aspirin 81 MG DAILY 08/09 1000 AC 08/10 PO 1003 Ceftriaxone Sodium 1,000 MG DAILY@1900 08/08 1900 AC 08/09 IV 08/11 1859 1954 Dextrose/Water 1,000 ML .[id number] 08/07 1115 DC 08/09 IV 1812 Furosemide 40 MG Q12 08/07 2200 AC 08/10 IV 1004 Heparin Sodium/ 25,000 UNIT Q24H 08/08 1500 AC 08/09 Dextrose IV 1644 Dextrose/Water 500 ML Ipratropium [place] 2.5 ML Q4P PRN 08/09 1430 AC INH Magnesium Oxide 400 MG ONE ONE 08/09 2230 DC 08/10 PO 08/09 2231 0012 Magnesium Sulfate 1 GM ONCE ONE 08/10 0530 DC 08/10 Dextrose/Water 100 ML IV 08/10 0929 0546 Metoprolol Tartrate 5 MG Q4 08/05 1515 AC 08/10 IV 1003 Nystatin 1 CYN BID PRN 08/03 0645 AC 08/08 TOP 0936 Pantoprazole Sodium 40 MG DAILY 08/03 1000 AC 08/10 IV 1003 Phosphate 250 MG ONCE ONE 08/09 2230 DC 08/10 PO 08/09 2231 0012 Phosphate 250 MG ONCE ONE 08/09 1500 DC / PO 08/09 1501 1526 Potassium Chloride 40 MEQ ONCE ONE 08/09 1445 DC / PO 08/09 1446 1445 Potassium Phosphate 15 mMol ONE ONE 08/10 0630 DC 08/10 Sodium Chloride 250 ML IV 08/10 1034 0832 Warfarin Sodium 5 MG COUMADIN 1700 ONE 08/09 1700 DC / PO 08/09 1701 1525 CXR Findings: 08/10/17-0500 IMPRESSION: 1. Endotracheal tube tip approximately 5.7 cm above the hollis. 2. Enteric tube poorly visualized with tip not included. 3. Lung findings are suggestive of pulmonary edema. Superimposed bibasilar atelectasis or consolidation and small left pleural effusion are also seen. Findings are similar to the previous exam. Impression/Plan Impression/Problem List Impression: 72 year old gentleman with past medical history significant for diastolic heart failure, hypertension syncope, per family he had an RI and had a stent placement at [facility] about 7 years ago, recent fall couple of days prior to admission, brought in by ambulance for altered mental status. On dmission found to have transaminitis, increased INR, elevated troponins. Afebrile overnight, no leukocytosis, platelet count trending up 125, sodium 146, creatinine 1.6 BUn 47, potassium 3.3, phosphorus 2.1, AST 63 ALT 50, albumin 1.8 Altered mental status/encephalopathy Mental status Same as yesterday Unclear etiology at this time. Unlikely to be septic encephalopathy as he did not come in presenting with sepsis like picture or hepatic encephalopathy as his ammonia is normal along with downtrending transaminitis, his transaminitis most likely secondary to congestion. DDX at this time: Cerebral edema versus hypoxic-ischemic encephalopathy, versus stroke, medication use cannot be ruled out as we are still unclear at to what medications he took prior to admission. Urine culture showed no growth, blood cultures showed no growth, urine antigens negative for strep pneumo and Legionella, CSF culture and Gram stain negative. HSV PCR pending Low complement levels, will follow-up cryoglobulin (hep C negative) Acetaminophen/salicycylates levels within normal CT head 3 showed no acute intracranial pathology, midline shift or hemorrhage CT abdomen and pelvis showed sigmoid diverticulosis without evidence of diverticulitis EEG done 08/06/17 revealed diffuse generalized slowing to delta range rhythms. The average amplitude is very low in the 5-10 microvolt range. Suggestive of diffuse cerebral dysfunction and a non-specific encephalopathy. ID and neuro on board appreciate recommendations Vit b12, ammonia levels wnl, UA neg for nitrates or leukocyte esterase No change in mental status noted with narcan 0.4 mg X2 doses and one time trial of flumazenil 0.5mg. LP done 08/06/17 not significant for infection will continue to monitor closely Acute Respiratory failure afebrile overnight, no leukocytosis, bandemia 8->15->1->9-> today multifactorial (aspiration/ worsening pulm edema) ATC TRC/nebs, keep head of bed elevated intubated overnight Chest x-ray done 08/09/17 :Tracheostomy tube tip lies approximately 9 cm above the hollis. Right PICC tip lies at the level of the upper SVC. No significant change from 08/08/2017. Mild prominence of the central vasculature and surrounding interstitium suggesting congestion. Discuss with respiratory to withdraw ET tube and will repeat chest x-ray. Spoke to Dr. Grijalva in IR regarding the line. Said that we can use the line as a midline for now. Will avoid pressors or any caustic substances such as vancomycin. If we need to converted we can get IR to advance. Continue diuresis ID recommending to watch him off of antibiotics Will continue diuresis Atrial fibrillation with Rapid ventricular rate Status post synchronized cardioversion currently on IV metoprolol 5 mg every 4 Continue to replete electrolytes, will start him on 40 twice a day of potassium and daily magnesium Chadvasc2 score= 5, with HAS-BLED score of 3 Continue IV heparin, will start warfarin / heparin bridge today INR 1.64 today will dose 5 mg of Coumadin, continue to monitor INR IV Cardizem drip dc 08/06/17 A cardiogram done 08/02/2017 showed normal EF of 50% with inferoapical and apical hypokinesis and large pedicle thrombus Positive troponins peaked to 1.98 and trended down likely type II RI TFT wnl Aterial doppler showed patent deep arterial systems of the bilateral lower extremities. Deep arteries of the left calf were not clearly visualized, however , left dorsal pedis artery was documented as patent. cardiology on board appreciate recommendations Left upper extremity swelling Improving Elevate arm, apply cold compressions ultrasound ruled out DVT Transaminitis LTF's trending down Hepatitis panel and HIV nonreactive, Hypernatremia Sodium 149 today, D5W was decreased to 60 mL overnight, will increase to 100 mL today and repeat sodium later today, also increased flushes in his NG tube. will continue to monitor closely Thrombocytopenia 123->115> 99--> 111->125 4t SCORE = 4 intermediate probability Hit antibody 0.162, which is indeterminate, Serotonin assay pending (results will be in Sunday) Left leg Cellulitis Recent erythema noted, improved swelling given two doses of vancomycin Complete a seven-day course of IV ceftriaxone, will follow off antibiotics Lower extremity Dopplers ruled out DVT RICHI-improving creatinine 1.7 BUn 46 likely ischemic ATN Continue to monitor closely On tube feeds DVT: IV heparin/coumadin full code guarded prognosis Problem List: 1. Rapid atrial fibrillation 2. Elevated troponin 3. Hypotension 4. Acute respiratory failure Pain Ratin Tomorrow's Labs & Rationales: cbc/bep Plan DVT/Prophylaxis: pharmacological
[2017-08-10 08:00] VITALS: BP 100/60
--- NOTE | 2017-08-10 09:16 | RADIOLOGY REPORT ---
EXAMINATION: XR PORTABLE CHEST CLINICAL INFORMATION: Intubated patient. Acute respiratory failure. Comparison from previous. COMPARISON: Several prior chest x-rays, most recent of which is dated 08/09/2017. TECHNIQUE: Portable AP semierect view of the chest was obtained. FINDINGS: Multiple EKG leads overlie the chest. Endotracheal tube is in place with tip approximately 5.7 cm above the hollis. Enteric tube is seen extending into the abdomen with tip not included. The cardiomediastinal silhouette is prominent, unchanged. Central vascular congestion and perihilar opacities are again noted, suggesting pulmonary edema. There is also dense consolidation or atelectasis and small left-sided pleural effusion noted. Right basilar subsegmental atelectasis is also seen. No pneumothorax is noted. Bony structures are grossly unremarkable. IMPRESSION: 1. Endotracheal tube tip approximately 5.7 cm above the hollis. 2. Enteric tube poorly visualized with tip not included. 3. Lung findings are suggestive of pulmonary edema. Superimposed bibasilar atelectasis or consolidation and small left pleural effusion are also seen. Findings are similar to the previous exam.
--- NOTE | 2017-08-10 09:25 | PN- CRCU ---
Subjective HPI/Critical Care Issues: DOing about the same\ Still has poor mental status jackie improved since two days ago, now opens his eyes on commands Objective Current Medications: Current Medications Sig/Richard Start time Last Medication Dose Route Stop Time Status Admin Albuterol Sulfate 3 ML BID 08/06 1000 DC 08/09 INH 0800 Albuterol Sulfate 3 ML Q4P PRN / 1330 AC 03/05 INH 0832 Aspirin 81 MG DAILY 08/09 1000 AC 08/09 PO 0947 Ceftriaxone Sodium 1,000 MG DAILY@1900 08/08 1900 AC 08/09 IV 08/11 1859 1954 Dextrose/Water 1,000 ML .[id number] 08/07 1115 DC 08/09 IV 1812 Furosemide 40 MG Q12 08/07 2200 AC 08/09 IV 2113 Heparin Sodium/ 25,000 UNIT Q24H 08/08 1500 AC 08/09 Dextrose IV 1644 Dextrose/Water 500 ML Ipratropium [place] 2.5 ML Q4P PRN 08/09 1430 AC INH Magnesium Oxide 400 MG ONE ONE 08/09 2230 DC 08/10 PO 08/09 2231 0012 Magnesium Sulfate 1 GM ONCE ONE 08/10 0530 AC 08/10 Dextrose/Water 100 ML IV 08/10 0929 0546 Magnesium Sulfate 1 GM ONCE ONE 08/09 0615 DC 08/09 Dextrose/Water 100 ML IV 08/09 1014 0656 Metoprolol Tartrate 5 MG Q4 / 1515 AC 08/10 IV 0545 Nystatin 1 CYN BID PRN 08/03 0645 AC 08/08 TOP 0936 Pantoprazole Sodium 40 MG DAILY 08/03 1000 AC / IV 0947 Phosphate 250 MG ONCE ONE 08/09 2230 DC 08/10 PO 08/09 2231 0012 Phosphate 250 MG ONCE ONE 08/09 1500 DC / PO 08/09 1501 1526 Potassium Chloride 40 MEQ ONCE ONE 08/09 1445 DC / PO 08/09 1446 1445 Potassium Phosphate 15 mMol ONE ONE 08/10 0630 AC 08/10 Sodium Chloride 250 ML IV 08/10 1034 0832 Warfarin Sodium 5 MG COUMADIN 1700 ONE 08/09 1700 DC 08/09 PO 08/09 1701 1525 Vital Signs & I&O Last 24 Hrs of Vitals and I&O: Vital Signs Date Time Temp Pulse Resp B/P B/P Pulse O2 O2 Flow FiO2 Mean Ox Delivery Rate 08/10 0812 35 08/10 0550 35 08/10 0545 92 97/64 08/10 0400 96 Ventilator 35% 08/10 0320 35 08/10 0106 35 08/10 0102 97 119/67 03 0000 96 Ventilator 35% 08/10 0000 99.0 94 18 100/70 96 Ventilator 35% 08/09 2233 35 08/09 2113 93 115/80 08/09 2000 97 Ventilator 35% 08/09 1940 35 08/09 1610 40 / 1600 97 Ventilator 35% 08/09 1600 98.4 100 18 96/60 97 Ventilator 35% 08/09 1411 40 08/09 1400 100 18 111/77 08/09 1200 96 Ventilator 40% 08/09 1151 40 Intake & Output 08/10 1600 08/10 0800 03 0000 Intake Total 1018 1145 Output Total 1700 850 Balance -682 295 Intake, IV 321 690 Intake, Tube 457 255 Feeding Intake, Tube 240 200 Irrigant Number 0 1 Bowel Movements Output, Urine 1700 850 Impression/Plan Impression/Plan Impression/Plan: Gen - ill appearing HEENT - +ETT CV - RRR, no m/r/g Chest - coarse breath sounds anteriorly Abd - soft, NTND Ext - 2+ edema with lower ext erythema and blackened patches Neuro - not meaningfully responsive, but opens eyes on command sometimes Ultrasound for vte neg IMPRESSION This is a 72-year-old gentleman with history of diabetes, previous heart failure diastolic, previous syncope, came into the hospital as was brought in from his home as his landlord found him on the floor. Patient apparently had had a previous fall in the snow as well.In the emergency room he was noted to have significant atrial fibrillation with tachycardia and he was hypotensive and hemodynamically unstable and had to have emergent cardioversion as his blood pressure was slow and he was unstable. Per history he has been non-compliant and has not seen any physicians in the recent past., Initially pt was conversant but slightly confused and since arriving in the ed he became less responsive and agitated requiring ativan and now appears to be worse with worsening mental status, with no fever (Apparently was lucid when he came in and he did not have any temperature and he was not complaining of a headache). Subsequently he became more confused and had to require large doses of Ativan as he was cardioverted emergently by Dr. Hitchcock. ISSUES * Altered mental status with previous fall with no clinical or lab evidence suggestive of significant meningitis, LP not consistant with infection. Apparently his mental status when he came in was relatively stable and patient now has decreased mentation which is slowly improving dif dx include brain stem stroke (lv clot and pafib) Neuro and ID on board, * Sig hypoxic and hypercarbic resp failure mainly due to Systolic chf and afib compounded by decreased mental status and inability to maintain his secretions now status post intubation * Improving PUlm edema with effusions with acute lung injury * Initial Rapid atrial fibrillation with significantly large intraventricular clot with PAFIb and at times flutter now in sinus on heparin * Prob pneumonia now with no fever * Total body fluid overload with lower extremity edema with bilateral pleural effusion, atelectasis, clinical evidence suggestive of systolic and diastolic heart failure, with resolved congested liver * Type II CA versus Acute coronary syndrome followed by cardio * Bilateral pulmonary infiltrates with thick yellow-green sputum suggestive of pneumonia initially now completing abx * Chronic kidney disease with acute renal insufficiency, appears to be improving * No DVT/ No sig arterial ischemia * Recent Worsening performance status with previous hypertension hyperlipidemia and medical noncompliance * Sig lower ext edema due and chronic venoustasis changes * Low platelets needs to be followed (mild improvement) * Unlikely pe but cannot rule out and not a candidate for vq and pt anticoag anyway REC Continue mechanical ventilation IV lasix q12 daily DC ceftriaxone Increase free water bolus and reduce d5w to 50 cc and watch sodium today Increase his tube feeding to 40 cc Keep hob up by 35 degree Rpt cxr in am Periodex oral care tid Warfarin 5 mg tonight and check inr in am Cont ppi Keep potassium more than 4 and replace down ng tube Ipratropim neb prn Keep mag more than 4 Pt continues to be critically ill tts 38 mins
--- NOTE | 2017-08-10 10:57 | PN- Nephrology ---
Assessment/Plan Nephrology Assessment: RICHI - Likely ischemic ATN in the setting of A fib with RVR/hypotension - improved and stabilized at 1.6-1.7 (not clear exactly what his baseline Cr is - got down to 1.1 in 2011). No evidence of obstruction on Renal US. Volume expanded requiring IV diuresis. Low complements can be associated with GN - no evidence of liver disease - ?infection related GN. Has already had a neg LIYAH ( lupus), no peripheral eosinophilia (suggestive of cholesterol emboli), Hep C ( cryoglobulinemia) so not sure exactly what to make of this in terms of clinical relevance other than potentially an infection related GN. Volume overload - Still with edema on chest x-ray - I would cont diuretics as SCr and BP tolerate. Hypernatremia - 2/2 decreased free water intake. Improving. Altered mental status - Underlying etiology still remains unclear with an essentially negative work-up thus far. Suggestion: -Would cont 40mg IV lasix BID to assist with extubation -Cont free water as you are -Check cryoglobulins Will see PRN. Please call [phone] with ?'s Subjective Subjective: SCr stable at 1.6 Na 146 Remains intubated on minimal vent settings Objective Vital Signs and I&Os Vital Signs Date Time Temp Pulse Resp B/P B/P Pulse O2 O2 Flow FiO2 Mean Ox Delivery Rate 08/10 0812 35 / 0550 35 / 0545 92 97/64 / 0400 96 Ventilator 35% 08/10 0320 35 / 0106 35 / 0102 97 119/67 03/ 0000 96 Ventilator 35% / 0000 99.0 94 18 100/70 96 Ventilator 35% / 2233 35 03/08 2113 93 115/80 03/08 2000 97 Ventilator 35% / 1940 35 03/08 1610 40 03/08 1600 97 Ventilator 35% / 1600 98.4 100 18 96/60 97 Ventilator 35% / 1411 40 03/08 1400 100 18 111/77 03/08 1200 96 Ventilator 40% /08 1151 40 Intake & Output / 1600 / 0400 / 1600 / 0400 08/08 1600 / 0400 Intake Total 1018 1145 9457 443 8399 944 Output Total 1700 850 914 089 7687 1000 Balance -682 295 763 440 -246 -56 Intake, IV 321 690 834 578 7350 746 Intake, Oral 0 Intake, Tube 457 255 250 115 248 98 Feeding Intake, Tube 240 200 260 170 260 100 Irrigant Number 0 1 0 1 0 Bowel Movements Output, Urine 1700 850 439 882 6763 1000 Patient 233 lb 236 lb Weight Weight Bed scale Measurement Method Physical Exam: Gen - ill appearing HEENT - +ETT CV - RRR, no m/r/g Chest - coarse breath sounds anteriorly Abd - soft, NTND Ext - less edema with lower ext erythema and blackened patches Neuro - not meaningfully responsive Current Medications: Current Medications Sig/Richard Start time Last Medication Dose Route Stop Time Status Admin Albuterol Sulfate 3 ML BID 08/06 1000 DC 08/09 INH 0800 Albuterol Sulfate 3 ML Q4P PRN 08/04 1330 AC 08/06 INH 0832 Aspirin 81 MG DAILY 08/09 1000 AC 08/10 PO 1003 Ceftriaxone Sodium 1,000 MG DAILY@1900 08/08 1900 AC 08/09 IV 08/11 1859 1954 Dextrose/Water 1,000 ML .[id number] / 1115 DC 08/09 IV 1812 Furosemide 40 MG Q12 08/07 2200 AC 08/10 IV 1004 Heparin Sodium/ 25,000 UNIT Q24H 08/08 1500 AC 08/09 Dextrose IV 1644 Dextrose/Water 500 ML Ipratropium Alanson 2.5 ML Q4P PRN 08/09 1430 AC INH Magnesium Oxide 400 MG ONE ONE 08/09 2230 DC 08/10 PO 08/09 223 0012 Magnesium Sulfate 1 GM ONCE ONE 08/10 0530 DC 08/10 Dextrose/Water 100 ML IV 08/10 0929 0546 Metoprolol Tartrate 5 MG Q4 / 1515 AC 08/10 IV 1003 Nystatin 1 CYN BID PRN 08/03 0645 AC 08/08 TOP 0936 Pantoprazole Sodium 40 MG DAILY 08/03 1000 AC 08/10 IV 1003 Phosphate 250 MG ONCE ONE 08/09 2230 DC 08/10 PO 08/09 2231 0012 Phosphate 250 MG ONCE ONE 08/09 1500 DC 08/09 PO 08/09 1501 1526 Potassium Chloride 40 MEQ ONCE ONE 08/09 1445 DC 08/09 PO 08/09 1446 1445 Potassium Phosphate 15 mMol ONE ONE 08/10 0630 DC 08/10 Sodium Chloride 250 ML IV 08/10 1034 0832 Warfarin Sodium 5 MG COUMADIN 1700 ONE 08/09 1700 DC 08/09 PO 08/09 1701 1525 Results Pertinent Lab Results: Laboratory Tests 08/10 08/10 08/09 0400 0400 2110 Chemistry Sodium (137 - 145 mmol/L) 146 H 145 Potassium (3.5 - 5.1 mmol/L) 3.7 3.9 Chloride (98 - 107 mmol/L) 106 105 Carbon Dioxide (22 - 30 mmol/L) 36 H 35 H Anion Gap (5 - 16) 5 5 BUN (9 - 20 mg/dL) 47 H 46 H Creatinine (0.7 - 1.2 mg/dL) 1.6 H 1.6 H Estimated GFR (>60 ml/min) 43 L 43 L Glucose (65 - 99 mg/dL) 122 H 107 H Calcium (8.4 - 10.2 mg/dL) 8.1 L 8.1 L Phosphorus (2.5 - 4.5 mg/dL) 2.3 L 2.1 L Magnesium (1.6 - 2.3 mg/dL) 1.7 1.8 Total Bilirubin (0.2 - 1.3 mg/dL) 1.3 1.3 AST (17 - 59 U/L) 102 H 90 H ALT (21 - 72 U/L) 59 55 Albumin (3.5 - 5.0 g/dL) 1.8 L 1.8 L Coagulation PT (9.4 - 12.5 SEC) 18.0 H INR (0.90 - 1.17) 1.64 H APTT (25 - 37 SEC) Cancelled 67 H Hematology CBC w Diff NO MAN DIFF REQ WBC (4.8 - 10.8 /CUMM) 10.6 RBC (4.70 - 6.10 /CUMM) 3.55 L Hgb (14.0 - 18.0 G/DL) 11.2 L Hct (42 - 52 %) 34.3 L MCV (80.0 - 94.0 FL) 96.6 H MCH (27.0 - 31.0 PG) 31.4 H MCHC (33.0 - 37.0 G/DL) 32.6 L RDW (11.5 - 14.5 %) 17.3 H Plt Count (130 - 400 /CUMM) 125 L MPV (7.4 - 10.4 FL) 9.1 Gran % (42.2 - 75.2 %) 82.7 H Lymphocytes % (20.5 - 51.1 %) 10.3 L Monocytes % (1.7 - 9.3 %) 5.0 Eosinophils % (0 - 5 %) 1.9 Basophils % (0.0 - 2.0 %) 0.1 Absolute Granulocytes (1.4 - 6.5 /CUMM) 8.8 H Absolute Lymphocytes (1.2 - 3.4 /CUMM) 1.1 L Absolute Monocytes (0.10 - 0.60 /CUMM) 0.5 Absolute Eosinophils (0.0 - 0.7 /CUMM) 0.2 Absolute Basophils (0.0 - 0.2 /CUMM) 0 Immunology Cryoglobulin Interp Pending 08/09 08/09 08/09 1600 1343 1017 Chemistry Sodium (137 - 145 mmol/L) 146 H Potassium (3.5 - 5.1 mmol/L) 3.8 Chloride (98 - 107 mmol/L) 106 Carbon Dioxide (22 - 30 mmol/L) 37 H Anion Gap (5 - 16) 4 L BUN (9 - 20 mg/dL) 46 H Creatinine (0.7 - 1.2 mg/dL) 1.6 H Estimated GFR (>60 ml/min) 43 L BUN/Creatinine Ratio (7 - 25 %) 28.8 H Phosphorus (2.5 - 4.5 mg/dL) 2.0 L Coagulation PT Cancelled INR Cancelled APTT (25 - 37 SEC) 72 H 08/09 08/09 08/08 0322 0300 2020 Chemistry Sodium (137 - 145 mmol/L) 149 H Cancelled 146 H Potassium (3.5 - 5.1 mmol/L) 3.3 L Cancelled 3.5 Chloride (98 - 107 mmol/L) 106 Cancelled 106 Carbon Dioxide (22 - 30 mmol/L) 37 H Cancelled 37 H Anion Gap (5 - 16) 5 Cancelled 3 L BUN (9 - 20 mg/dL) 46 H Cancelled 50 H Creatinine (0.7 - 1.2 mg/dL) 1.7 H Cancelled 1.6 H Estimated GFR (>60 ml/min) 40 L 43 L Glucose (65 - 99 mg/dL) 109 H Cancelled 122 H Calcium (8.4 - 10.2 mg/dL) 8.5 Cancelled 8.5 Phosphorus (2.5 - 4.5 mg/dL) 2.1 L Cancelled 2.0 L Magnesium (1.6 - 2.3 mg/dL) 1.7 Cancelled 1.8 Total Bilirubin (0.2 - 1.3 mg/dL) 1.3 Cancelled 1.2 AST (17 - 59 U/L) 63 H Cancelled 60 H ALT (21 - 72 U/L) 50 Cancelled 51 Albumin (3.5 - 5.0 g/dL) 1.8 L Cancelled 1.8 L Coagulation PT (9.4 - 12.5 SEC) 17.7 H INR (0.90 - 1.17) 1.62 H APTT (25 - 37 SEC) 87 H Hematology CBC w Diff NO MAN DIFF REQ WBC (4.8 - 10.8 /CUMM) 9.4 RBC (4.70 - 6.10 /CUMM) 3.83 L Hgb (14.0 - 18.0 G/DL) 12.1 L Hct (42 - 52 %) 36.7 L MCV (80.0 - 94.0 FL) 95.9 H MCH (27.0 - 31.0 PG) 31.6 H MCHC (33.0 - 37.0 G/DL) 32.9 L RDW (11.5 - 14.5 %) 17.7 H Plt Count (130 - 400 /CUMM) 115 L MPV (7.4 - 10.4 FL) 9.1 Gran % (42.2 - 75.2 %) 83.2 H Lymphocytes % (20.5 - 51.1 %) 10.6 L Monocytes % (1.7 - 9.3 %) 5.4 Eosinophils % (0 - 5 %) 0.6 Basophils % (0.0 - 2.0 %) 0.2 Absolute Granulocytes (1.4 - 6.5 /CUMM) 7.8 H Absolute Lymphocytes (1.2 - 3.4 /CUMM) 1.0 L Absolute Monocytes (0.10 - 0.60 /CUMM) 0.5 Absolute Eosinophils (0.0 - 0.7 /CUMM) 0.1 Absolute Basophils (0.0 - 0.2 /CUMM) 0 08/08 1535 0810 Chemistry Sodium Cancelled Coagulation APTT (25 - 37 SEC) 82 H 58 H 08/08 08/08 0505 0355 Blood Gas pH (7.35 - 7.45 PH) 7.43 pCO2 (35 - 45 TORR) 49 H pO2 (80 - 100 TORR) 289 H HCO3 (21 - 28 MEQ/L) 32 H ABG O2 Sat (Measured) (>96.0 %) 99.0 P-50 (Temp Corrected) Y Carboxyhemoglobin (1.5 - 5.0 %) 0.1 L O2 Concentration % 100% Temperature (97.0 - 100.0 FARH) 97.4 Respiration Rate (BPM) 18 O2 Delivery Method ESPRIT Vent Mode AC Expiratory Pressure (CMH2O/P) 5 Tidal Volume (CC) 550 Chemistry Sodium (137 - 145 mmol/L) 151 H Potassium (3.5 - 5.1 mmol/L) 4.0 Chloride (98 - 107 mmol/L) 107 Carbon Dioxide (22 - 30 mmol/L) 37 H Anion Gap (5 - 16) 7 BUN (9 - 20 mg/dL) 45 H Creatinine (0.7 - 1.2 mg/dL) 1.6 H Estimated GFR (>60 ml/min) 43 L Glucose (65 - 99 mg/dL) 122 H Calcium (8.4 - 10.2 mg/dL) 8.9 Phosphorus (2.5 - 4.5 mg/dL) 2.7 Magnesium (1.6 - 2.3 mg/dL) 1.8 Total Bilirubin (0.2 - 1.3 mg/dL) 1.1 AST (17 - 59 U/L) 55 ALT (21 - 72 U/L) 53 Albumin (3.5 - 5.0 g/dL) 2.0 L Hematology CBC w Diff MAN DIFF ORDERED WBC (4.8 - 10.8 /CUMM) 8.2 RBC (4.70 - 6.10 /CUMM) 4.31 L Hgb (14.0 - 18.0 G/DL) 13.8 L Hct (42 - 52 %) 41.6 L MCV (80.0 - 94.0 FL) 97.4 H MCH (27.0 - 31.0 PG) 31.7 H MCHC (33.0 - 37.0 G/DL) 33.1 RDW (11.5 - 14.5 %) 18.0 H Plt Count (130 - 400 /CUMM) 111 L MPV (7.4 - 10.4 FL) 8.5 Gran % (42.2 - 75.2 %) 86.7 H Lymphocytes % (20.5 - 51.1 %) 7.1 L Monocytes % (1.7 - 9.3 %) 5.9 Eosinophils % (0 - 5 %) 0.2 Basophils % (0.0 - 2.0 %) 0.1 Absolute Granulocytes (1.4 - 6.5 /CUMM) 7.1 H Segmented Neutrophils (42.2 - 75.2 %) 83 H Band Neutrophils (0.0 - 5.0 %) 9 H Absolute Lymphocytes (1.2 - 3.4 /CUMM) 0.6 L Lymphocytes (20.5 - 51.1 %) 6 L Monocytes (1.7 - 9.3 %) 2 Absolute Monocytes (0.10 - 0.60 /CUMM) 0.5 Absolute Eosinophils (0.0 - 0.7 /CUMM) 0 Absolute Basophils (0.0 - 0.2 /CUMM) BC# Platelet Estimate (ADEQUATE) ADEQUATE Polychromasia 1+ Poikilocytosis 1+ Anisocytosis 1+ Target Cells 1+ Dawit Cells 1+ Elliptocytes 1+ Miscellaneous Phlebotomy Draw Site RIGHT RADIAL 08/08 08/08 08/08 08/08 0300 0150 0100 0002 Blood Gas pH (7.35 - 7.45 PH) 7.34 L pCO2 (35 - 45 TORR) 63 *H pO2 (80 - 100 TORR) 77 L HCO3 (21 - 28 MEQ/L) 34 H ABG O2 Sat (Measured) (>96.0 %) 94.0 L P-50 (Temp Corrected) Y Carboxyhemoglobin (1.5 - 5.0 %) 0.5 L O2 Concentration % 95% 45 LPM Temperature (97.0 - 100.0 FARH) 97.3 O2 Delivery Method HI MAURICE N/C Chemistry Sodium (137 - 145 mmol/L) 150 H Cancelled 152 H Potassium (3.5 - 5.1 mmol/L) 4.0 Cancelled 4.3 Chloride (98 - 107 mmol/L) 108 H Cancelled 110 H Carbon Dioxide (22 - 30 mmol/L) 36 H Cancelled 35 H Anion Gap (5 - 16) 6 Cancelled 8 BUN (9 - 20 mg/dL) 44 H Cancelled 44 H Creatinine (0.7 - 1.2 mg/dL) 1.8 H Cancelled 1.6 H Estimated GFR (>60 ml/min) 37 L 43 L Glucose (65 - 99 mg/dL) 144 H Cancelled 152 H Calcium (8.4 - 10.2 mg/dL) 8.8 Cancelled 9.1 Phosphorus (2.5 - 4.5 mg/dL) 3.3 Cancelled 2.9 Magnesium (1.6 - 2.3 mg/dL) 1.9 Cancelled 1.6 Total Bilirubin (0.2 - 1.3 mg/dL) 1.2 Cancelled 1.3 AST (17 - 59 U/L) 57 Cancelled 63 H ALT (21 - 72 U/L) 57 Cancelled 56 Albumin (3.5 - 5.0 g/dL) 2.0 L Cancelled 2.2 L Coagulation APTT (25 - 37 SEC) 58 H Miscellaneous Phlebotomy Draw Site RIGHT RADIAL 08/07 08/07 08/07 08/07 2300 1940 1830 1630 Chemistry Sodium (137 - 145 mmol/L) Cancelled 148 H Cancelled 150 H Potassium (3.5 - 5.1 mmol/L) Cancelled 3.2 L Cancelled 3.4 L Chloride (98 - 107 mmol/L) Cancelled 105 Cancelled 107 Carbon Dioxide (22 - 30 mmol/L) Cancelled 37 H Cancelled 36 H Anion Gap (5 - 16) Cancelled 6 Cancelled 6 BUN (9 - 20 mg/dL) Cancelled 45 H Cancelled 49 H Creatinine (0.7 - 1.2 mg/dL) Cancelled 1.6 H Cancelled 1.6 H Estimated GFR (>60 ml/min) 43 L 43 L BUN/Creatinine Ratio (7 - 25 %) 30.6 H Glucose (65 - 99 mg/dL) Cancelled 116 H Cancelled Calcium (8.4 - 10.2 mg/dL) Cancelled 8.9 Cancelled Phosphorus (2.5 - 4.5 mg/dL) Cancelled 3.2 Cancelled Magnesium (1.6 - 2.3 mg/dL) Cancelled 1.6 Cancelled Total Bilirubin (0.2 - 1.3 mg/dL) Cancelled 1.2 Cancelled AST (17 - 59 U/L) Cancelled 61 H Cancelled ALT (21 - 72 U/L) Cancelled 60 Cancelled Albumin (3.5 - 5.0 g/dL) Cancelled 2.1 L Cancelled Coagulation APTT (25 - 37 SEC) 113 *H 03/ 1300 Blood Gas pH (7.35 - 7.45 PH) 7.42 pCO2 (35 - 45 TORR) 48 H pO2 (80 - 100 TORR) 79 L HCO3 (21 - 28 MEQ/L) 30 H ABG O2 Sat (Measured) (>96.0 %) 96.0 P-50 (Temp Corrected) YES Carboxyhemoglobin (1.5 - 5.0 %) 0 L O2 Concentration % 65% Temperature (97.0 - 100.0 FARH) 98.0 O2 Delivery Method HFNC Miscellaneous Phlebotomy Draw Site RIGHT RADIAL Imaging/Other Studies: EXAM TYPE: RAD - XRY-PORTABLE CHEST XRAY EXAMINATION: XR PORTABLE CHEST CLINICAL INFORMATION: Intubated patient. Acute respiratory failure. Comparison from previous. COMPARISON: Several prior chest x-rays, most recent of which is dated 08/09/2017. TECHNIQUE: Portable AP semierect view of the chest was obtained. FINDINGS: Multiple EKG leads overlie the chest. Endotracheal tube is in place with tip approximately 5.7 cm above the hollis. Enteric tube is seen extending into the abdomen with tip not included. The cardiomediastinal silhouette is prominent, unchanged. Central vascular congestion and perihilar opacities are again noted, suggesting pulmonary edema. There is also dense consolidation or atelectasis and small left-sided pleural effusion noted. Right basilar subsegmental atelectasis is also seen. No pneumothorax is noted. Bony structures are grossly unremarkable. IMPRESSION: 1. Endotracheal tube tip approximately 5.7 cm above the hollis. 2. Enteric tube poorly visualized with tip not included. 3. Lung findings are suggestive of pulmonary edema. Superimposed bibasilar atelectasis or consolidation and small left pleural effusion are also seen. Findings are similar to the previous exam.
--- NOTE | 2017-08-10 11:29 | PN- Infect Dx ---
Subjective Subjective: Afebrile. He required intubation 2 days ago, with decreasing oxygen requirement since. Objective Last 24 Hrs of Vital Signs/I&O Vital Signs Date Time Temp Pulse Resp B/P B/P Pulse O2 O2 Flow FiO2 Mean Ox Delivery Rate 08/10 0812 35 08/10 0800 97 Ventilator 35% 08/10 0800 98.0 96 24 100/60 96 Ventilator 35% 08/10 0550 35 08/10 0545 92 97/64 08/10 0400 96 Ventilator 35% 08/10 0320 35 08/10 0106 35 08/10 0102 97 119/67 03/ 0000 96 Ventilator 35% 08/10 0000 99.0 94 18 100/70 96 Ventilator 35% 08/09 2233 35 08/09 2113 93 115/80 08/09 2000 97 Ventilator 35% 08/09 1940 35 08/09 1610 40 / 1600 97 Ventilator 35% 08/09 1600 98.4 100 18 96/60 97 Ventilator 35% 08/09 1411 40 /08 1400 100 18 111/77 / 1200 96 Ventilator 40% 08/09 1151 40 Intake & Output 08/10 1600 08/10 0800 03/ 0000 Intake Total 1018 1145 Output Total 1700 850 Balance -682 295 Intake, IV 321 690 Intake, Tube 457 255 Feeding Intake, Tube 240 200 Irrigant Number 0 1 Bowel Movements Output, Urine 1700 850 Patient 238 lb Weight Weight Bed scale Measurement Method Physical Exam Other Physical Findings: He is more responsive, following commands, on the ventilator in no acute distress Lungs rhonchi bilaterally Heart regular rhythm with no murmur Extremities bilateral lower extremity edema, left greater than right, with erythema of the left leg unchanged and with scattered necrotic areas to both lower extremities and the right third toe; PICC in the right upper extremity with no inflammation at the site Eason catheter remains in place Results Last 24 Hours of Lab Results: Laboratory Tests 08/10/08 0400 0400 2110 Chemistry Sodium (137 - 145 mmol/L) 146 H 145 Potassium (3.5 - 5.1 mmol/L) 3.7 3.9 Chloride (98 - 107 mmol/L) 106 105 Carbon Dioxide (22 - 30 mmol/L) 36 H 35 H Anion Gap (5 - 16) 5 5 BUN (9 - 20 mg/dL) 47 H 46 H Creatinine (0.7 - 1.2 mg/dL) 1.6 H 1.6 H Estimated GFR (>60 ml/min) 43 L 43 L Glucose (65 - 99 mg/dL) 122 H 107 H Calcium (8.4 - 10.2 mg/dL) 8.1 L 8.1 L Phosphorus (2.5 - 4.5 mg/dL) 2.3 L 2.1 L Magnesium (1.6 - 2.3 mg/dL) 1.7 1.8 Total Bilirubin (0.2 - 1.3 mg/dL) 1.3 1.3 AST (17 - 59 U/L) 102 H 90 H ALT (21 - 72 U/L) 59 55 Albumin (3.5 - 5.0 g/dL) 1.8 L 1.8 L Coagulation PT (9.4 - 12.5 SEC) 18.0 H INR (0.90 - 1.17) 1.64 H APTT (25 - 37 SEC) Cancelled 67 H Hematology CBC w Diff NO MAN DIFF REQ WBC (4.8 - 10.8 /CUMM) 10.6 RBC (4.70 - 6.10 /CUMM) 3.55 L Hgb (14.0 - 18.0 G/DL) 11.2 L Hct (42 - 52 %) 34.3 L MCV (80.0 - 94.0 FL) 96.6 H MCH (27.0 - 31.0 PG) 31.4 H MCHC (33.0 - 37.0 G/DL) 32.6 L RDW (11.5 - 14.5 %) 17.3 H Plt Count (130 - 400 /CUMM) 125 L MPV (7.4 - 10.4 FL) 9.1 Gran % (42.2 - 75.2 %) 82.7 H Lymphocytes % (20.5 - 51.1 %) 10.3 L Monocytes % (1.7 - 9.3 %) 5.0 Eosinophils % (0 - 5 %) 1.9 Basophils % (0.0 - 2.0 %) 0.1 Absolute Granulocytes (1.4 - 6.5 /CUMM) 8.8 H Absolute Lymphocytes (1.2 - 3.4 /CUMM) 1.1 L Absolute Monocytes (0.10 - 0.60 /CUMM) 0.5 Absolute Eosinophils (0.0 - 0.7 /CUMM) 0.2 Absolute Basophils (0.0 - 0.2 /CUMM) 0 Immunology Cryoglobulin Interp Pending 08/09 08/09 1600 1343 Chemistry Sodium (137 - 145 mmol/L) 146 H Potassium (3.5 - 5.1 mmol/L) 3.8 Chloride (98 - 107 mmol/L) 106 Carbon Dioxide (22 - 30 mmol/L) 37 H Anion Gap (5 - 16) 4 L BUN (9 - 20 mg/dL) 46 H Creatinine (0.7 - 1.2 mg/dL) 1.6 H Estimated GFR (>60 ml/min) 43 L BUN/Creatinine Ratio (7 - 25 %) 28.8 H Phosphorus (2.5 - 4.5 mg/dL) 2.0 L Coagulation APTT (25 - 37 SEC) 72 H Last 24 Hours of Zackery Results: CSF culture August 06 negative Recent Imaging Studies: Chest x-ray August 10 revealed central vascular congestion and perihilar opacities , with superimposed bibasilar atelectasis or consolidation with a small left pleural effusion Doppler of the left upper extremity August 09 negative Assessment/Plan ID Impression: Stable, with respiratory status improving, status post intubation 2 days ago, with a significant diuresis 3 days ago and again overnight. His mental status has also improved with increased responsiveness. He remain afebrile with a normal white blood cell count on Ceftriaxone, which has been continued, now Day 7 of treatment for possible sepsis, with possible sources including the lungs, though his chest x-ray is more suggestive of pulmonary edema, or cellulitis, though suspect that his lower extremity findings are chronic. Suggestion: 1. Further management of his fluid status per Renal 2. Discontinue Ceftriaxone and follow off antibiotics
--- NOTE | 2017-08-10 14:37 | Transfer of Care Summary ---
Hospital Course Course Hospital Course: 72 year old gentleman with past medical history significant for diastolic heart failure, hypertension syncope, per family he had an MT and had a stent placement at [facility] about 7 years ago, recent fall couple of days prior to admission and recently treated for cellulitis prior to admission. Was found by his landlord when she didn't hear for him for 3 days lying on his couch surrounded by his excreta. Found to be in RVR and was cardioverted emergently and was administered ativan. Hospital course from: August 02, 2017 to August 11, 2017 Admitted to ICU for worsening mental status, he was obtunded and nonresponsive to verbal stimuli till day 4 of admission after which which his mental status improved. Was intubated on 08/08/17 for airway protection and increasing oxygen requirements. Altered mental status/encephalopathy Improving now obeying simple commands and opening his eyes spontaneously and responding. DDX at this time: Cerebral edema versus hypoxic-ischemic encephalopathy, versus stroke, medication use cannot be ruled out as we are still unclear at to what medications he took prior to admission. Urine culture showed no growth, blood cultures showed no growth, urine antigens negative for strep pneumo and Legionella, CSF culture and Gram stain negative. HSV PCR /HIV neg Low complement levels, follow-up cryoglobulin (hep C negative) Acetaminophen/salicycylates levels within normal CT head 3 showed no acute intracranial pathology, midline shift or hemorrhage CT abdomen and pelvis showed sigmoid diverticulosis without evidence of diverticulitis EEG done 08/06/17 revealed diffuse generalized slowing to delta range rhythms. The average amplitude is very low in the 5-10 microvolt range. Suggestive of diffuse cerebral dysfunction and a non-specific encephalopathy. Vit b12, ammonia levels wnl, UA neg for nitrates or leukocyte esterase No change in mental status noted with narcan 0.4 mg X2 doses and one time trial of flumazenil 0.5mg. LP done 08/06/17 not significant for infection Acute Respiratory failure Multifactorial (aspiration/ worsening pulm edema) ATC TRC/nebs, keep head of bed elevated, periodex, chlorhexidine bath daily Current trialing watching him off of antibiotics daily diuresis Atrial fibrillation with Rapid ventricular rate/atrial thrombus Status post synchronized cardioversion on his home medication of carvedilol 25 mg twice a day, holding for hypotension on 40 twice a day of potassium and daily magnesium Chadvasc2 score= 5, with HAS-BLED score of 3 ongoing warfarin / heparin bridging INR 1.67 08/11/17 IV Cardizem drip dc 08/06/17 A cardiogram done 08/02/2017 showed normal EF of 50% with inferoapical and apical hypokinesis and large pedicle thrombus Positive troponins peaked to 1.98 and trended attributed to type II MT TFT wnl Aterial doppler showed patent deep arterial systems of the bilateral lower extremities. Deep arteries of the left calf were not clearly visualized, however , left dorsal pedis artery was documented as patent. Left upper extremity swelling Improving Elevate arm, apply cold compressions ultrasound ruled out DVT Transaminitis LTF's trending down Hepatitis panel and HIV nonreactive, Hypernatremia Sodium 147 today, D5W was decreased to 60 mL overnight, increased flushes to 150 in his NG tube. Thrombocytopenia 123->115> 99--> 111->125 4t SCORE = 4 intermediate probability Hit antibody 0.162, which is indeterminate, Serotonin assay pending (results will be in Sunday) Left leg Cellulitis Recent erythema noted, improved swelling given two doses of vancomycin Complete a seven-day course of IV ceftriaxone, will follow off antibiotics Lower extremity Dopplers ruled out DVT RICHI on CKD-improving creatinine 1.5 BUn 47 likely ischemic ATN tube feeds, rate increased to 80 DVT: IV heparin/coumadin full code guarded prognosis Complications: intubation Assessment/Plan: Consults: Critical care Cardiology Infectious disease Nephrology Things to follow: Continue trialing in anticipation of extubation Awaiting NOELLE for next week MRI when extubated Continue gentle monitor and replete electrolytes PT/OT when able only speak to: Son Jose Pike [phone] TRY HIM FIRST Brother Itz Pike [phone] Winifred ([facility]) no one else should visit the patient or given any updates/information has estranged brother Kimberly Pike who should not be allowed to visit or given any information
[2017-08-10 16:00] VITALS: BP 114/62
[2017-08-10 17:08] LABS: PTT > 120 SEC (25-37)
[2017-08-10 23:26] LABS: PTT 36 SEC (25-37)
[2017-08-11] VITALS: BP 120/69
[2017-08-11 05:17] LABS: ABSOLUTE BASOPHIL COUNT 0 /CUMM (0.0-0.2); ABSOLUTE EOSINOPHIL COUNT 0.2 /CUMM (0.0-0.7); ABSOLUTE GRANULOCYTE CT 8.5 /CUMM (1.4-6.5); ABSOLUTE LYMPH COUNT 1.3 /CUMM (1.2-3.4); ABSOLUTE MONOCYTE COUNT 0.5 /CUMM (0.10-0.60); BASOPHIL % 0.3 % (0.0-2.0); EOSINOPHIL % 2.2 % (0-5); GRANULOCYTE % 80.7 % (42.2-75.2); HEMATOCRIT 31.3 % (42-52); MEAN CORPUSCULAR HGB 31.5 PG (27.0-31.0); MEAN CORPUSCULAR HGB CONC 32.8 G/DL (33.0-37.0); MEAN CORPUSCULAR VOLUME 95.8 FL (80.0-94.0); PLATELET COUNT 143 /CUMM (130-400); RED BLOOD CELL CT 3.26 /CUMM (4.70-6.10); WHITE BLOOD CELL COUNT 10.5 /CUMM (4.8-10.8)
[2017-08-11 05:27] LABS: PT 18.3 SEC (9.4-12.5); PTT 58 SEC (25-37)
[2017-08-11 08:00] VITALS: BP 110/60
--- NOTE | 2017-08-11 08:02 | PN- CRCU ---
Subjective HPI/Critical Care Issues: Much more awake today More responsive and squeezing my hand on the right Seems to have left-sided weakness in the left upper extremity and lower extremity and he does not seem to move his left side as well as his right side. Afebrile Continues to be in sinus rhythm maintaining his blood pressure He did have a spontaneous breathing trial yesterday which was unremarkable above a did have some apnea episodes Is on assist control 35% 550 tidal volume and PEEP of 5. Saturating well. Continues to be on heparin drip and he is on warfarin as well. His IV fluids had been stopped and his tube feeds to goal and his free water boluses are going well Is had adequate urine output overnight continues to be in positive fluid balance Significant data [place] reviewed in the computer His creatinine is better at 1.5, BUN is 47, sodium continues to be elevated, Ativan gap is normal, his last CPK was elevated troponin was 1.7 for few days ago. His white count is 10.5 hemoglobin stable at 10.3 but has come down since admission and his platelets have improved. His INR is now 1.67 His previous ABG reviewed Previous cultures are unremarkable Objective Current Medications: Current Medications Sig/Richard Start time Last Medication Dose Route Stop Time Status Admin Albuterol Sulfate 3 ML Q4P PRN 08/04 1330 AC 08/06 INH 0832 Aspirin 81 MG DAILY 08/09 1000 AC 08/10 PO 1003 Ceftriaxone Sodium 1,000 MG DAILY@1900 08/08 1900 AC 08/10 IV 08/11 1859 2000 Dextrose/Water 1,000 ML ONCE ONE 08/10 1115 CAN IV 08/11 0714 Diphenhydramine HCl 1 CYN DAILY 08/10 2300 AC 08/11 TOP 0000 Furosemide 40 MG DAILY 08/11 1000 AC IV Furosemide 40 MG Q12 08/07 2200 DC 08/10 IV 08/11 0000 2217 Glycerin 2 SPRAY Q2P PRN 08/11 0215 AC PO Heparin Sodium/ 25,000 UNIT Q24H 08/08 1500 AC 08/10 Dextrose IV 1609 Dextrose/Water 500 ML Ipratropium [place] 2.5 ML Q4P PRN 08/09 1430 AC INH Magnesium Chloride 64 MG BID 08/10 1256 DC PO Magnesium Sulfate 1 GM ONCE ONE 08/10 1530 DC 08/10 Dextrose/Water 100 ML IV 08/10 1929 1528 Magnesium Sulfate 1 GM ONCE ONE 08/10 529 DC 08/10 Dextrose/Water 100 ML IV 08/10 0929 0546 Metoprolol Tartrate 5 MG Q4 08/05 1515 AC 08/11 IV 0618 Nystatin 1 CYN BID PRN 08/03 0645 AC 08/08 TOP 0936 Pantoprazole Sodium 40 MG DAILY 08/03 1000 AC 08/10 IV 1003 Potassium Chloride 40 MEQ BID 08/10 1300 AC 08/10 PO 2216 Potassium Phosphate 15 mMol ONE ONE 08/10 0630 DC 08/10 Sodium Chloride 250 ML IV 08/10 1034 0832 Warfarin Sodium 5 MG COUMADIN 1700 ONE 08/10 1700 DC 08/10 PO 08/10 1701 1551 Vital Signs & I&O Last 24 Hrs of Vitals and I&O: Vital Signs Date Time Temp Pulse Resp B/P B/P Pulse O2 O2 Flow FiO2 Mean Ox Delivery Rate 08/11 617 98 130/70 08/11 0533 35 08/11 0400 97 Ventilator 35% 08/11 0329 35 08/11 0223 98 116/77 08/11 0057 35 08/11 0000 98.7 94 19 120/69 98 Ventilator 35% 08/11 0000 98 Ventilator 35% 08/10 2219 102 140/60 08/10 2205 35 08/10 2018 35 08/10 2000 99 Ventilator 35% 08/10 1600 97 Ventilator 35% 08/10 1600 98.8 98 20 114/62 97 Ventilator 35% 08/10 1548 35 08/10 1411 35 08/10 1200 95 Ventilator 35% 08/10 1150 35 08/10 0812 35 08/10 0800 97 Ventilator 35% 08/10 0800 98.0 96 24 100/60 96 Ventilator 35% Intake & Output 08/11 0800 0310 0000 08/10 1600 Intake Total 850 1152 1078 Output Total 5145 347 4735 Balance -150 452 -422 Intake, IV 144 293 458 Intake, Oral 0 Intake, Tube 480 509 420 Feeding Intake, Tube 226 350 200 Irrigant Number 0 0 0 Bowel Movements Output, Urine 1479 493 0712 Patient 238 lb Weight Weight Bed scale Measurement Method Impression/Plan Impression/Plan Impression/Plan: IMPRESSION This is a 72-year-old gentleman with history of diabetes, previous heart failure diastolic, previous syncope, came into the hospital as was brought in from his home as his landlord found him on the floor. (History on admission Patient apparently had had a previous fall in the snow as well.In the emergency room he was noted to have significant atrial fibrillation with tachycardia and he was hypotensive and hemodynamically unstable and had to have emergent cardioversion as his blood pressure was slow and he was unstable. Per history he has been non -compliant and has not seen any physicians in the recent past., Initially pt was conversant but slightly confused and since arriving in the ed he became less responsive and agitated requiring ativan and now appears to be worse with worsening mental status, with no fever (Apparently was lucid when he came in and he did not have any temperature and he was not complaining of a headache). Subsequently he became more confused and had to require large doses of Ativan as he was cardioverted emergently by Dr. Hitchcock). ISSUES * Improving Altered mental status with previous fall with no clinical or lab evidence suggestive of significant meningitis, LP not consistant with infection. Apparently his mental status when he came in was relatively preserved with mild confusion and patient now has significantly decreased mentation which is slowly improving - dif dx include brain stem stroke (lv clot and pafib) vs other etiology, Neuro and ID on board, * Improving Sig hypoxic and hypercarbic resp failure mainly due to Systolic chf and afib compounded by decreased mental status and inability to maintain his secretions now status post intubation * Improving PUlm edema with effusions with acute lung injury * Initial Rapid atrial fibrillation with significantly large intraventricular clot with PAFIb and at times flutter now in sinus on heparin, being transitioned to warfarin * Prob pneumonia now with no fever s/p 7 days of ceftriaxone and cultures are neg * Total body fluid overload with edema with bilateral pleural effusion, atelectasis, clinical evidence suggestive of systolic and diastolic heart failure, with resolved congested liver * Type II GA versus Acute coronary syndrome followed by cardio * Bilateral pulmonary infiltrates with resolved thick yellow-green sputum suggestive of pneumonia s/p abx * Chronic kidney disease with acute renal insufficiency, appears to be improving * No DVT/ No sig arterial ischemia * Recent Worsening performance status with previous hypertension hyperlipidemia and medical noncompliance * Lower ext chronic venostasis * Improving thrombocytopenia and HIT antibody neg * Unlikely pe but cannot rule out and not a candidate for vq and pt anticoag anyway REC Continue mechanical ventilation PSV trials Agg bowel regimen as he has not had a bowel regimen, Add senna, docusate GIve prn fentanyl for agitation and avoid benzo IV lasix q12 daily Cont free water bolus Keep hob up by 35 degree Periodex oral care tid Warfarin 7.5 mg tonight and check inr in am Cont ppi Keep potassium more than 4 and replace down ng tube Ipratropim neb prn Keep mag more than 4 Pt continues to be critically ill tts 37 mins
--- NOTE | 2017-08-11 08:25 | PN- Resident CRCU ---
Subjective HPI/CRCU Issues: Intubated Altered mental status A. fib with RVR Apical thrombus Hypoxemic respiratory failure Type II CT RICHI 24 Hour Events: Overnight patient apparently was agitated and need to be put on [place]. Seen and examined patient today. He is much more alert and awake and obeying simple commands today. Able to move his right upper and bilateral lower extremities however is having some difficulty with is left upper extremity. Tmax 99, SR heart rate 90-94 Blood pressure 100-118 systolic, 68-70 diastolic Currently ventilated AC 18/550/35/5 saturating 93% CXR : 08/11/17 FINDINGS: Multiple EKG leads overlie the chest. Endotracheal tube is in place with tip approximately 6 cm above the hollis. Enteric tube is poorly visualized and courses into the abdomen with tip not appreciated. The cardiomediastinal silhouette is enlarged, unchanged. There are persistent central vascular congestion and bilateral perihilar opacities, right greater than left. Bilateral pleural effusions and associated bibasilar lung parenchymal opacities are also seen, unchanged. No pneumothorax is seen. Bony structures are poorly assessed. IMPRESSION: Unchanged appearance of the chest with findings consistent with pulmonary edema. Superimposed bibasilar atelectasis or consolidation and small effusions are also seen, unchanged. Objective Vital Signs & I&O Last 8 Hrs of Vitals and I&O: Intake & Output 08/11 1600 08/11 0800 08/11 0000 Intake Total 850 1152 Output Total 1000 700 Balance -150 452 Intake, IV 144 293 Intake, Tube 480 509 Feeding Intake, Tube 226 350 Irrigant Number 0 0 Bowel Movements Output, Urine 1000 700 Patient 223 lb Weight Weight Bed scale Measurement Method Laboratory Tests 08/11 08/10 08/10 0456 2305 1600 Chemistry Sodium (137 - 145 mmol/L) 147 H Potassium (3.5 - 5.1 mmol/L) 3.9 Chloride (98 - 107 mmol/L) 105 Carbon Dioxide (22 - 30 mmol/L) 36 H Anion Gap (5 - 16) 5 BUN (9 - 20 mg/dL) 47 H Creatinine (0.7 - 1.2 mg/dL) 1.5 H Estimated GFR (>60 ml/min) 46 L BUN/Creatinine Ratio (7 - 25 %) 31.3 H Coagulation PT (9.4 - 12.5 SEC) 18.3 H INR (0.90 - 1.17) 1.67 H APTT (25 - 37 SEC) 58 H 36 > 120 *H Hematology CBC w Diff MAN DIFF ORDERED WBC (4.8 - 10.8 /CUMM) 10.5 RBC (4.70 - 6.10 /CUMM) 3.26 L Hgb (14.0 - 18.0 G/DL) 10.3 L Hct (42 - 52 %) 31.3 L MCV (80.0 - 94.0 FL) 95.8 H MCH (27.0 - 31.0 PG) 31.5 H MCHC (33.0 - 37.0 G/DL) 32.8 L RDW (11.5 - 14.5 %) 17.0 H Plt Count (130 - 400 /CUMM) 143 MPV (7.4 - 10.4 FL) 10.0 Gran % (42.2 - 75.2 %) 80.7 H Lymphocytes % (20.5 - 51.1 %) 12.2 L Monocytes % (1.7 - 9.3 %) 4.6 Eosinophils % (0 - 5 %) 2.2 Basophils % (0.0 - 2.0 %) 0.3 Absolute Granulocytes (1.4 - 6.5 /CUMM) 8.5 H Absolute Lymphocytes (1.2 - 3.4 /CUMM) 1.3 Absolute Monocytes (0.10 - 0.60 /CUMM) 0.5 Absolute Eosinophils (0.0 - 0.7 /CUMM) 0.2 Absolute Basophils (0.0 - 0.2 /CUMM) 0 Platelet Estimate (ADEQUATE) ADEQUATE Hypochromic-Microcytic 1+ Poikilocytosis 1+ Ovalocytes 2+ Intake & Output 0310 1600 Intake Total Output Total Balance Patient 223 lb Weight Weight Bed scale Measurement Method Exam General Appearance: intubated Respiratory: normal breath sounds, quiet respiration Cardiovascular: regular rate/rhythm Gastrointestinal: normal bowel sounds, soft, non-tender Extremities: pedal edema Skin: improving erythema of left LE Weaning Parameters NIF: 25 Minute Volume: 9.26 Resp rate: 23 Vt: 403 Heart Rate: 98 Weaning Schedule Start Time: 2030 Minute Volume: 9.26 Resp Rate: 23 Vt: 403 Heart Rate: 98 End Time: 2152 Minute Volume: 8.16 Resp Rate: 20 Vt: 408 Heart Rate: 96 Nutrition Nutrition: tube feeding Current Medications: Current Medications Sig/Richard Start time Last Medication Dose Route Stop Time Status Admin Albuterol Sulfate 3 ML Q4P PRN 08/04 1330 AC 08/06 INH 0832 Aspirin 81 MG DAILY 08/09 1000 AC 08/11 PO 0926 Ceftriaxone Sodium 1,000 MG DAILY@1900 07 1900 AC 08/10 IV 08/11 1859 2000 Dextrose/Water 1,000 ML ONCE ONE 08/10 1115 CAN IV 08/11 0714 Diphenhydramine HCl 1 CYN DAILY 08/10 2300 AC 08/11 TOP 0926 Furosemide 40 MG DAILY 08/11 1000 AC 08/11 IV 0925 Furosemide 40 MG Q12 08/07 2200 DC 08/10 IV 08/11 0000 2217 Glycerin 2 SPRAY Q2P PRN 08/11 0215 AC PO Heparin Sodium/ 25,000 UNIT Q24H 08/08 1500 AC 08/10 Dextrose IV 1609 Dextrose/Water 500 ML Ipratropium [place] 2.5 ML Q4P PRN 08/09 1430 AC INH Magnesium Chloride 64 MG BID 08/10 1256 DC PO Magnesium Sulfate 1 GM ONCE ONE 08/10 1530 DC 08/10 Dextrose/Water 100 ML IV 08/10 1929 1528 Metoprolol Tartrate 5 MG Q4 08/05 1515 AC 08/11 IV 0618 Nystatin 1 CYN BID PRN 08/03 0645 AC 08/08 TOP 0936 Pantoprazole Sodium 40 MG DAILY 08/03 1000 AC 08/11 IV 0925 Potassium Chloride 40 MEQ BID 08/10 1300 AC 08/11 PO 0925 Warfarin Sodium 5 MG COUMADIN 1700 ONE 08/10 1700 DC 08/10 PO 08/10 1701 1551 Impression/Plan Impression/Problem List Impression: 72 year old gentleman with past medical history significant for diastolic heart failure, hypertension syncope, per family he had an CT and had a stent placement at [facility] about 7 years ago, recent fall couple of days prior to admission, brought in by ambulance for altered mental status. On admission found to have transaminitis, increased INR, elevated troponins. Afebrile overnight, no leukocytosis, platelet 413, sodium 147, creatinine 1.5 BUn 47, potassium 3.9, phosphorus 2.3, AST 63 ALT 50, albumin 1.8 Altered mental status/encephalopathy Improving now obeying simple commands and opening his eyes spontaneously and responding. DDX at this time: Cerebral edema versus hypoxic-ischemic encephalopathy, versus stroke, medication use cannot be ruled out as we are still unclear at to what medications he took prior to admission. Urine culture showed no growth, blood cultures showed no growth, urine antigens negative for strep pneumo and Legionella, CSF culture and Gram stain negative. HSV PCR /HIV neg Low complement levels, will follow-up cryoglobulin (hep C negative) Acetaminophen/salicycylates levels within normal CT head 3 showed no acute intracranial pathology, midline shift or hemorrhage CT abdomen and pelvis showed sigmoid diverticulosis without evidence of diverticulitis EEG done 08/06/17 revealed diffuse generalized slowing to delta range rhythms. The average amplitude is very low in the 5-10 microvolt range. Suggestive of diffuse cerebral dysfunction and a non-specific encephalopathy. ID and neuro on board appreciate recommendations Vit b12, ammonia levels wnl, UA neg for nitrates or leukocyte esterase No change in mental status noted with narcan 0.4 mg X2 doses and one time trial of flumazenil 0.5mg. LP done 08/06/17 not significant for infection will continue to monitor closely Acute Respiratory failure afebrile overnight, no leukocytosis multifactorial (aspiration/ worsening pulm edema) ATC TRC/nebs, keep head of bed elevated, periodex, chlorhexidine bath continue Trials Chest x-ray reviewed Continue diuresis ID recommending to watch him off of antibiotics Atrial fibrillation with Rapid ventricular rate/atrial thrombus Status post synchronized cardioversion currently on IV metoprolol 5 mg every 4, spoke to Dr. Hitchcock and will stop IV metoprolol and start his home medication of carvedilol 25 mg twice a day hold for hypotension Continue to replete electrolytes, will start him on 40 twice a day of potassium and daily magnesium Chadvasc2 score= 5, with HAS-BLED score of 3 Continue warfarin / heparin bridging INR 1.67 today will dose 6 mg of Coumadin, continue to monitor INR IV Cardizem drip dc 08/06/17 A cardiogram done 08/02/2017 showed normal EF of 50% with inferoapical and apical hypokinesis and large pedicle thrombus Positive troponins peaked to 1.98 and trended down likely type II CT TFT wnl Aterial doppler showed patent deep arterial systems of the bilateral lower extremities. Deep arteries of the left calf were not clearly visualized, however , left dorsal pedis artery was documented as patent. cardiology on board appreciate recommendations Awaiting NOELLE next week Left upper extremity swelling Improving Elevate arm, apply cold compressions ultrasound ruled out DVT 72 year old gentleman with past medical history significant for diastolic heart failure, hypertension syncope, per family he had an CT and had a stent placement at [facility] about 7 years ago, recent fall couple of days prior to admission, brought in by ambulance for altered mental status. On dmission found to have transaminitis, increased INR, elevated troponins. Afebrile overnight, no leukocytosis, platelet 413, sodium 147, creatinine 1.5 BUn 47, potassium 3.9, phosphorus 2.3, AST 63 ALT 50, albumin 1.8 Altered mental status/encephalopathy Improving now obeying simple commands and opening his eyes spontaneously and responding. DDX at this time: Cerebral edema versus hypoxic-ischemic encephalopathy, versus stroke, medication use cannot be ruled out as we are still unclear at to what medications he took prior to admission. Urine culture showed no growth, blood cultures showed no growth, urine antigens negative for strep pneumo and Legionella, CSF culture and Gram stain negative. HSV PCR /HIV neg Low complement levels, will follow-up cryoglobulin (hep C negative) Acetaminophen/salicycylates levels within normal CT head 3 showed no acute intracranial pathology, midline shift or hemorrhage CT abdomen and pelvis showed sigmoid diverticulosis without evidence of diverticulitis EEG done 08/06/17 revealed diffuse generalized slowing to delta range rhythms. The average amplitude is very low in the 5-10 microvolt range. Suggestive of diffuse cerebral dysfunction and a non-specific encephalopathy. ID and neuro on board appreciate recommendations Vit b12, ammonia levels wnl, UA neg for nitrates or leukocyte esterase No change in mental status noted with narcan 0.4 mg X2 doses and one time trial of flumazenil 0.5mg. LP done 08/06/17 not significant for infection will continue to monitor closely Acute Respiratory failure afebrile overnight, no leukocytosis multifactorial (aspiration/ worsening pulm edema) ATC TRC/nebs, keep head of bed elevated, periodex, chlorhexidine bath continue Trials Chest x-ray reviewed Continue diuresis ID recommending to watch him off of antibiotics Will continue diuresis Atrial fibrillation with Rapid ventricular rate/atrial thrombus Status post synchronized cardioversion currently on IV metoprolol 5 mg every 4, spoke to Dr. Hitchcock and will stop IV metoprolol and start his home medication of carvedilol 25 mg twice a day hold for hypotension Continue to replete electrolytes, will start him on 40 twice a day of potassium and daily magnesium Chadvasc2 score= 5, with HAS-BLED score of 3 Continue warfarin / heparin bridging INR 1.67 today will dose 6 mg of Coumadin, continue to monitor INR IV Cardizem drip dc 08/06/17 A cardiogram done 08/02/2017 showed normal EF of 50% with inferoapical and apical hypokinesis and large pedicle thrombus Positive troponins peaked to 1.98 and trended down likely type II CT TFT wnl Aterial doppler showed patent deep arterial systems of the bilateral lower extremities. Deep arteries of the left calf were not clearly visualized, however , left dorsal pedis artery was documented as patent. cardiology on board appreciate recommendations Awaiting NOELLE next week Left upper extremity swelling Improving Elevate arm, apply cold compressions ultrasound ruled out DVT Transaminitis LTF's trending down Hepatitis panel and HIV nonreactive, Hypernatremia Sodium 147 today, D5W was decreased to 60 mL overnight, increased flushes to 150 in his NG tube. will continue to monitor closely Thrombocytopenia 123->115> 99--> 111->125 4t SCORE = 4 intermediate probability Hit antibody 0.162, which is indeterminate, Serotonin assay pending (results will be in Sunday) Left leg Cellulitis Recent erythema noted, improved swelling given two doses of vancomycin Complete a seven-day course of IV ceftriaxone, will follow off antibiotics Lower extremity Dopplers ruled out DVT RICHI on CKD-improving creatinine 1.5 BUn 47 likely ischemic ATN Continue to monitor closely continue tube feeds, rate increased to 80 DVT: IV heparin/coumadin full code guarded prognosis Problem List: 1. Acute respiratory failure 2. Hypotension 3. Elevated troponin 4. Rapid atrial fibrillation Pain Ratin Tomorrow's Labs & Rationales: ICU panel/CBC/INR Plan DVT/Prophylaxis: pharmacological
--- NOTE | 2017-08-11 10:18 | RADIOLOGY REPORT ---
EXAMINATION: XR PORTABLE CHEST CLINICAL INFORMATION: Endotracheal tube and orogastric tube placement. Acute respiratory failure. COMPARISON: Multiple prior chest x-rays, most recent of which is dated 08/10/2017. TECHNIQUE: Portable AP erect view of the chest was obtained. FINDINGS: Multiple EKG leads overlie the chest. Endotracheal tube is in place with tip approximately 6 cm above the hollis. Enteric tube is poorly visualized and courses into the abdomen with tip not appreciated. The cardiomediastinal silhouette is enlarged, unchanged. There are persistent central vascular congestion and bilateral perihilar opacities, right greater than left. Bilateral pleural effusions and associated bibasilar lung parenchymal opacities are also seen, unchanged. No pneumothorax is seen. Bony structures are poorly assessed. IMPRESSION: Unchanged appearance of the chest with findings consistent with pulmonary edema. Superimposed bibasilar atelectasis or consolidation and small effusions are also seen, unchanged.
[2017-08-11 14:28] LABS: PTT 61 SEC (25-37)
[2017-08-11 16:00] VITALS: BP 98/70
--- NOTE | 2017-08-11 16:40 | PN- Cardiology ---
Subjective Subjective: * Patient is appropriately responsive. He does not have full movement of the left arm. * sinus rhythm with PAC's * creatinine improved to 1.5 * decreasing H/H * doing well on weaning trials Objective Vital Signs and I&Os Vital Signs Date Time Temp Pulse Resp B/P B/P Pulse O2 O2 Flow FiO2 Mean Ox Delivery Rate 08/11 1600 96 Ventilator 35% 08/11 1200 96 Ventilator 35% 08/11 1135 35 08/11 0925 90 104/50 08/11 0800 98 Ventilator 35% 08/11 0800 97.9 90 22 110/60 96 Ventilator 35% 08/11 0750 35 08/11 0618 98 130/70 08/11 0533 35 08/11 0400 97 Ventilator 35% 08/11 0329 35 08/11 0223 98 116/77 03/ 0057 35 08/11 0000 98.7 94 19 120/69 98 Ventilator 35% 08/11 0000 98 Ventilator 35% 08/10 2219 102 140/60 08/10 2205 35 08/10 2018 35 08/10 2000 99 Ventilator 35% Intake & Output 08/11 1600 08/11 0800 03/10 0000 / 1600 08/10 0800 08/10 0000 Intake Total 850 1152 1078 1018 1145 Output Total 6500 061 7197 1700 850 Balance -150 452 -422 -682 295 Intake, IV 144 293 458 321 690 Intake, Oral 0 Intake, Tube 480 509 420 457 255 Feeding Intake, Tube 226 350 200 240 200 Irrigant Number 0 0 0 0 1 Bowel Movements Output, Urine 8286 325 7872 1700 850 Patient 223 lb 238 lb Weight Weight Bed scale Bed scale Measurement Method Physical Exam: General: WD/obese; intubated; alert and responsive Neck: no JVD, no carotid bruit Heart: RRR, no murmur Lungs: clear bilaterally Extremities: 2+ bilateral pedal edema with bilateral erythema L>R Neuro: decreased movement of left arm and hand Assessment/Plan Assessment/Plan * This patient is now intubated but appears alert and appropriately responsive. He does have decreased movement of his left arm consistent with a CVA which is certainly a possibility considering his initial presentation in atrial fibrillation. An EEG reportedly showed low voltage. His head CT was negative for a stroke but it is anticipated that that patient may be extubated tomorrow or Sunday and at that time an MRI may be considered. * This patient had a rise in cardiac enzymes consistent with a type 2 TN upon initial presentation. He has no chest discomfort and there are no clear ST segment elevations. Monitor his cardiac enzymes until they peak. He will not be able to tolerate nitrates due to his blood pressure which dropped after receiving NTG by EMS. Rate control will be the most effective means of limiting any myocardial ischemia. Continue aspirin 325mg daily. * Atrial fibrillation. It is unknown how long this patient had been in atrial fibrillation but due to hemodynamic instability he was cardioverted to a sinus rhythm and is hemodynamically improved. 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 Will proceed with a NOELLE to differentiate thrombus from tumor on Sunday or Sunday. Continue anticoagulation. Continue telemetry? Yes
[2017-08-11 23:00] VITALS: BP 98/70
[2017-08-12 01:52] LABS: PTT 60 SEC (25-37)
[2017-08-12 06:06] LABS: ABSOLUTE BASOPHIL COUNT 0 /CUMM (0.0-0.2); ABSOLUTE EOSINOPHIL COUNT 0.2 /CUMM (0.0-0.7); ABSOLUTE GRANULOCYTE CT 7.2 /CUMM (1.4-6.5); ABSOLUTE LYMPH COUNT 1.3 /CUMM (1.2-3.4); ABSOLUTE MONOCYTE COUNT 0.4 /CUMM (0.10-0.60); BASOPHIL % 0.1 % (0.0-2.0); EOSINOPHIL % 2.5 % (0-5); GRANULOCYTE % 79.1 % (42.2-75.2); HEMATOCRIT 29.9 % (42-52); MEAN CORPUSCULAR HGB 31.2 PG (27.0-31.0); MEAN CORPUSCULAR HGB CONC 32.3 G/DL (33.0-37.0); MEAN CORPUSCULAR VOLUME 96.5 FL (80.0-94.0); MEAN PLATELET VOLUME 10.1 FL (7.4-10.4); PLATELET COUNT 158 /CUMM (130-400); RBC DISTRIBUTION WIDTH 16.8 % (11.5-14.5); RED BLOOD CELL CT 3.09 /CUMM (4.70-6.10); WHITE BLOOD CELL COUNT 9.2 /CUMM (4.8-10.8)
[2017-08-12 06:18] LABS: PT 21.9 SEC (9.4-12.5)
--- NOTE | 2017-08-12 07:18 | RADIOLOGY REPORT ---
EXAMINATION: XR PORTABLE CHEST CLINICAL INFORMATION: Respiratory failure on ventilator. Tube placement. COMPARISON: Recent priors. TECHNIQUE: Portable frontal view of the chest was obtained. FINDINGS: m the endotracheal tube is 3 cm above the hollis. The feeding tube remains in position that is not visualized below the distal esophagus secondary to technical limitations of the examination. The right arm PICC is obscured by overlying tubing and not visualized. There is persistent Central vascular congestion with mild interstitial changes consistent with mild pulmonary edema. Persistent basilar opacities consistent with layering pleural effusions and associated atelectasis. Heart size is mildly enlarged but unchanged. IMPRESSION: 1. Endotracheal tube 3 cm above the hollis. 2. Indeterminate position of feeding tube. 3. Stable appearance of central vascular congestion with mild interstitial changes consistent with pulmonary edema. 3. Persistent bibasilar opacity consistent with layering pleural effusions and associated atelectasis.
[2017-08-12 08:00] VITALS: BP 112/60
--- NOTE | 2017-08-12 09:44 | PN- Infect Dx ---
Subjective Subjective: Afebrile without complaints Objective Last 24 Hrs of Vital Signs/I&O Vital Signs Date Time Temp Pulse Resp B/P B/P Pulse O2 O2 Flow FiO2 Mean Ox Delivery Rate 08/12 0831 35 08/12 0800 96 Ventilator 35% 08/12 0800 98.8 86 18 112/60 96 Ventilator 35% 08/12 0533 35 08/12 0400 97 Ventilator 35% 08/12 0326 35 08/12 0046 35 08/12 0000 97 Ventilator 35% 08/11 2300 97.8 80 19 98/70 97 Ventilator 35% 08/11 2212 35 08/11 2000 93 Ventilator 35% 08/11 1900 35 08/11 1830 103 102/60 03/10 1634 35 08/11 1600 97.1 96 22 98/70 95 Ventilator 35% 08/11 1600 96 Ventilator 35% 08/11 1315 90 90/50 / 1200 96 Ventilator 35% 08/11 1135 35 Intake & Output 08/12 1600 08/12 0800 08/12 0000 Intake Total 995 734 Output Total 580 700 Balance 415 34 Intake, IV 186 161 Intake, Tube 509 423 Feeding Intake, Tube 300 150 Irrigant Number 0 0 Bowel Movements Output, Urine 580 700 Physical Exam Other Physical Findings: He is awake and alert on the ventilator Lungs bilateral rhonchi Heart regular rhythm with no murmur Abdomen is soft, nontender with positive bowel sounds Extremities 2+ edema both lower extremities, with persistent erythema and scattered necrotic areas unchanged; PICC in place in the right upper extremity with no inflammation at the site Eason catheter remains in place Results Last 24 Hours of Lab Results: Laboratory Tests 08/12 08/12 08/11 0542 0112 1330 Blood Gas pH (7.35 - 7.45 PH) 7.54 H pCO2 (35 - 45 TORR) 39 pO2 (80 - 100 TORR) 97 HCO3 (21 - 28 MEQ/L) 32 H ABG O2 Sat (Measured) (>96.0 %) 97.0 Carboxyhemoglobin (1.5 - 5.0 %) 0.7 L O2 Concentration % 35% Respiration Rate (BPM) 21 O2 Delivery Method VENT Vent Mode CPAP Expiratory Pressure (CMH2O/P) 5 Pressure Support (CMH2O/P) 6 Chemistry Sodium (137 - 145 mmol/L) 145 Potassium (3.5 - 5.1 mmol/L) 4.3 Chloride (98 - 107 mmol/L) 106 Carbon Dioxide (22 - 30 mmol/L) 35 H Anion Gap (5 - 16) 4 L BUN (9 - 20 mg/dL) 43 H Creatinine (0.7 - 1.2 mg/dL) 1.5 H Estimated GFR (>60 ml/min) 46 L Glucose (65 - 99 mg/dL) 121 H Calcium (8.4 - 10.2 mg/dL) 7.8 L Phosphorus (2.5 - 4.5 mg/dL) 2.9 Magnesium (1.6 - 2.3 mg/dL) 1.7 Total Bilirubin (0.2 - 1.3 mg/dL) 1.1 AST (17 - 59 U/L) 122 H ALT (21 - 72 U/L) 76 H Albumin (3.5 - 5.0 g/dL) 1.7 L Coagulation PT (9.4 - 12.5 SEC) 21.9 H INR (0.90 - 1.17) 2.00 H APTT (25 - 37 SEC) 60 H Hematology CBC w Diff NO MAN DIFF REQ WBC (4.8 - 10.8 /CUMM) 9.2 RBC (4.70 - 6.10 /CUMM) 3.09 L Hgb (14.0 - 18.0 G/DL) 9.7 L Hct (42 - 52 %) 29.9 L MCV (80.0 - 94.0 FL) 96.5 H MCH (27.0 - 31.0 PG) 31.2 H MCHC (33.0 - 37.0 G/DL) 32.3 L RDW (11.5 - 14.5 %) 16.8 H Plt Count (130 - 400 /CUMM) 158 MPV (7.4 - 10.4 FL) 10.1 Gran % (42.2 - 75.2 %) 79.1 H Lymphocytes % (20.5 - 51.1 %) 13.7 L Monocytes % (1.7 - 9.3 %) 4.6 Eosinophils % (0 - 5 %) 2.5 Basophils % (0.0 - 2.0 %) 0.1 Absolute Granulocytes (1.4 - 6.5 /CUMM) 7.2 H Absolute Lymphocytes (1.2 - 3.4 /CUMM) 1.3 Absolute Monocytes (0.10 - 0.60 /CUMM) 0.4 Absolute Eosinophils (0.0 - 0.7 /CUMM) 0.2 Absolute Basophils (0.0 - 0.2 /CUMM) 0 Miscellaneous Phlebotomy Draw Site LEFT RADIAL 08/11 1250 Coagulation APTT (25 - 37 SEC) 61 H Last 24 Hours of Zackery Results: No new cultures Recent Imaging Studies: Chest x-ray August 12 reveals persistent central vascular congestion with mild interstitial changes; bilateral pleural effusions with associated atelectasis Assessment/Plan ID Impression: Overall improved, with temperatures and white blood cell count normal, now off antibiotics after a one-week course of treatment for possible sepsis, possibly secondary to pneumonia or cellulitis. His respiratory status has overall improved, likely secondary to diuresis. Suggestion: 1. Further management of his fluid status per Renal 2. Continue local wound care to his lower extremities 3. Continue to follow off antibiotics
[2017-08-12 11:01] LABS: PTT 76 SEC (25-37)
--- NOTE | 2017-08-12 11:07 | PN- Resident CRCU ---
Subjective HPI/CRCU Issues: The patient was seen and examined. He is more awake today and moving his arms and legs. Had a bowel movement this morning. Undergoing weaning trials. VSS. Objective Vital Signs & I&O Last 8 Hrs of Vitals and I&O: Vital Signs Date Time Temp Pulse Resp B/P B/P Pulse O2 O2 Flow FiO2 Mean Ox Delivery Rate 08/12 1600 98.9 98 24 112/68 97 Nasal 3.0L Cannula 08/12 1600 98 Nasal 3.0L Cannula 08/12 1313 35 08/12 1200 96 Ventilator 35% 08/12 1100 98 92/50 Intake & Output 08/12 1600 Intake Total 732 Output Total 1650 Balance -918 Intake, IV 203 Intake, Other 190 Intake, Tube 339 Feeding Output, Urine 1650 Exam General Appearance: no apparent distress Other Physical Findings: General Appearance: Obtunded, moves spontaneously, normal tone, response wnl to tactile stimuli in feet, withdraw from pain, toes downward b/l, pipoint pupils noted which dilates when patient's head is moved. Head: atraumatic Ears, Nose, Throat: brisk corneal reflex b/l Neck: supple Respiratory: b/l rhonchi Cardiovascular: regular rate/rhythm Extremities: b/l pedal edema w/erythema, hyperkeratotic yellow nails in poor hygene. right toe with scab, decreased pulsation b/l, chronic venous stasis changes, erythema more prominent on left lower extremity. Cranial Nerves: Doll's eye normal. IGLESIA, EOMI, Tongue midline Skin: warm/dry, See extremities exam Skin Temp/Moisture Exam: Warm/Dry Kernig and Brudzinski sign negative Weaning Parameters NIF: 333 Minute Volume: 6.90 Resp rate: 27 Vt: 255 Heart Rate: 93 Weaning Schedule Start Time: 0955 Minute Volume: 7.05 Resp Rate: 25 Vt: 300 Heart Rate: 97 End Time: 2110 Minute Volume: 10.0 Resp Rate: 20 Vt: 555 Heart Rate: 95 Current Medications: Current Medications Sig/Richard Start time Last Medication Dose Route Stop Time Status Admin Acetaminophen 650 MG ONCE ONE 08/15 2100 DC 08/15 PO 08/15 2101 2055 Acetylcysteine 2 ML EVERY 4 HRS/AWAKE 08/15 1999 AC 08/16 INH 0814 Albuterol Sulfate 3 ML EVERY 4 HRS/AWAKE 08/15 1999 AC 08/16 INH 0814 Aspirin 81 MG DAILY 08/17 1000 AC PO Aspirin 162 MG DAILY 08/15 1000 DC 08/16 PO 0850 Carvedilol 25 MG BID 08/11 1245 AC 08/16 PO 0850 Ceftazidime 1,000 MG Q12 08/13 2200 AC 08/16 IV 0849 Cetirizine HCl 10 MG ONCE ONE 08/15 2359 DC 08/15 PO 08/16 0000 2355 Dextrose/Water 1,000 ML ONCE ONE 08/16 1045 AC IV 08/17 0644 Diphenhydramine HCl 1 CYN DAILY 08/10 2300 AC 08/16 TOP 0850 Docusate Sodium 100 MG DAILY NEEDED PRN 08/11 1230 AC PO Furosemide 40 MG BID 08/16 1045 AC IV 08/16 2201 Furosemide 40 MG ONCE ONE 08/15 1245 DC 08/15 IV 08/15 1246 1259 Furosemide 40 MG DAILY 08/15 1000 AC 08/16 PO 0850 Glycerin 2 SPRAY Q2P PRN 08/11 0215 AC PO Heparin Sodium/ 25,000 UNIT Q24H 08/16 1045 AC Dextrose IV Dextrose/Water 500 ML Nystatin 1 CYN BID PRN 08/03 0645 AC 08/08 TOP 0936 Pantoprazole Sodium 40 MG DAILY 08/15 1000 AC 08/16 IV 0849 Potassium Chloride 40 MEQ DAILY 08/16 1000 AC 08/16 PO 0849 Potassium Chloride 40 MEQ BID 08/10 1300 DC 08/15 PO 0918 Senna/Docusate Sodium 1 TAB BID PRN 08/11 1504 AC 08/16 PO 0850 Vancomycin HCl 1,000 MG 08/14 2030 AC 08/15 Dextrose/Water 250 ML IV 2054 Impression/Plan Impression/Problem List Impression: This is a 72 -year-old male with past medical history significant for CHF, hypertension who presented with altered mental status. He was brought to the hospital after being found unresponsive in his apartment. While in the ED, he was noted to be in A. fib with RVR requiring multiple doses of IV Lopressor and Cardizem drip. He also underwent cardioversion. Subsequently was admitted to the ICU for further monitoring. Problem list/plan: #AMS: * Slowly Improving now obeying simple commands and opening his eyes spontaneously and responding. * DDX at this time: Cerebral edema versus hypoxic-ischemic encephalopathy, versus stroke, medication use cannot be ruled out as we are still unclear at to what medications he took prior to admission. * Urine culture showed no growth, blood cultures showed no growth, urine antigens negative for strep pneumo and Legionella, CSF culture and Gram stain negative. HSV PCR /HIV neg Low complement levels, will follow-up cryoglobulin ( hep C negative) * Acetaminophen/salicycylates levels within normal * CT head 3 showed no acute intracranial pathology, midline shift or hemorrhage * CT abdomen and pelvis showed sigmoid diverticulosis without evidence of diverticulitis * EEG done 08/06/17 revealed diffuse generalized slowing to delta range rhythms. The average amplitude is very low in the 5-10 microvolt range. Suggestive of diffuse cerebral dysfunction and a non-specific encephalopathy. * ID and neurology consult appreciated. Will follow recommendations * LP done 08/06/17 not significant for infection * Continue to monitor closely #AFIB RVR: S/P synch cardioversion. EKG showed rate 190, irregularly irregular rhythm, evidence of RBBB and L fascicular block. TFT WNL. * Monitor on tele * Heparin drip * Patient is currently nothing by mouth, tube feeding is out, NGT and meds via NG * Follow cardiology recommendation #Elevated Troponin: First trop 1.71, EKG a.fib RVR. THought to be secondary to demand due to tachycardia and less likely plaque rupture. * Troponin peaked * Echo:1. Low normal EF of 50% with inferoapical and apical hypokinesis. 2. Large apical thrombus. 3. Moderate left ventricular hypertrophy. 4. Moderate left atrial enlargement. 5. Mild mitral regurgitation. 6. Mild tricuspid regurgitation. 7. Mild pulmonary hypertension. 8. Small pericardial effusion. * ASA 300 AL * On heparin drip #CHF: Echo from 2009 shows EF 35% but from 2010 shows EF 65% with hyperdynamic LV and mild LAE. Pt has significant LE edema, and cxr with evidence of volume overload raising concern for decompensated heart failure. BNP 4650, no previous value. * Echo as above * Appreciate cardio recs * Strict I/O * Eason placed #Chronic vs Acute Renal Failure: * Creatinine 1.5 * Cont monitor * avoid nepro toxins * Renal consult appreciated, will follow recommendations. * Follow up UProt, UCr, UMicroalbumin,C3, C4 (for infection related GN), Hepatitis B, C and HIV testing,SPEP, UPEP, KLFLC * UA * Urine lytes #Hypoxic respiratory failure: Pt was O2 sat 89 when he first presented. CXR with evidence of volume overload and ? bibasliar opacity * ID consult appreciated * If febrile broad abx coverage (vancomycin/CTX/ampicillin/acyclovir); and once feasible LP to r/o infection (CSF analysis cell count, glucose, protein, HSV and VZV DNA PCR in CSF, bacterial, fungal and mycobactereial culture; save one tube for further testing). #Transamanitis: Tbili 3.1, AST 119, ALT 76. INR elevated to 2. Not on AC. Pt has unknown hx etoh consumption. DDX: etoh, drug induced, and given abdominal pain on exam cholelithiasis/cystitis. * UTOX tested * CIWA protocol * Con't monitor * CT- ABD:Several punctate nonobstructive right renal calculi. No hydronephrosis.Moderate bilateral pleural effusions with associated bibasilar airspacedisease. Infection cannot be excluded.Cardiomegaly and small pericardial effusion.Sigmoid diverticulosis without evidence of diverticulitis. * Fractionate Bili * Consider RUQ US * Status post treatment with high-dose IV thiamine every 8 hours for 3 doses. #Lactic acidosis-resolved: * Could be secondary to RVR and hypotension leading to ischemia and also elevated troponin. * Being treated for possible infection as trigger for afib with RVR. However, note he has been afebrile with WBC WNL. Possible sources include PNA, cellulitis of LLE, UTI, ABD source given pain, cannot rule out meningits however less likely given no fever, and negative Gladis Mcdonald. His AMS really started AFTER admission. * ID recommendations as above * Blood cultures * urine culture * sputum culture * flu swab Full code IV Heparin Problem List: 1. Acute respiratory failure 2. Rapid atrial fibrillation 3. Altered mental state Pain Ratin Tomorrow's Labs & Rationales: CBC to monitor H&H ICU bundle monitor electrolytes Plan DVT/Prophylaxis: pharmacological
--- NOTE | 2017-08-12 12:57 | PN- CRCU ---
Subjective HPI/Critical Care Issues: More awake Still has sig weakness on the left side Doing PSV trials Had a BM Objective Current Medications: Current Medications Sig/Richard Start time Last Medication Dose Route Stop Time Status Admin Albuterol Sulfate 3 ML Q4P PRN 08/04 1330 AC 08/06 INH 0832 Aspirin 81 MG DAILY 08/09 1000 AC 08/12 PO 1011 Carvedilol 25 MG BID 08/11 1245 AC 08/11 PO 1830 Ceftriaxone Sodium 1,000 MG DAILY@1900 08/08 1900 DC 08/10 IV 08/11 1859 2000 Diphenhydramine HCl 1 CYN DAILY 08/10 2300 AC 08/12 TOP 1003 Docusate Sodium 100 MG DAILY NEEDED PRN 08/11 1230 AC PO Furosemide 40 MG ONCE ONE 08/12 1100 DC IV 08/12 1101 Furosemide 40 MG DAILY 08/11 1000 AC 08/12 IV 0953 Glycerin 2 SPRAY Q2P PRN 08/11 0215 AC PO Heparin Sodium/ 25,000 UNIT Q24H 08/08 1500 AC 08/11 Dextrose IV 1812 Dextrose/Water 500 ML Ipratropium [place] 2.5 ML Q4P PRN 08/09 1430 AC INH Methylprednisolone 40 MG ONCE ONE 08/12 1100 DC IV 08/12 1101 Metoprolol Tartrate 5 MG Q4 08/05 1515 DC 08/11 IV 0618 Nystatin 1 CYN BID PRN 08/03 0645 AC 08/08 TOP 0936 Pantoprazole Sodium 40 MG DAILY 08/03 1000 AC 08/12 IV 0953 Potassium Chloride 40 MEQ BID 08/10 1300 AC 08/12 PO 1011 Senna/Docusate Sodium 1 TAB BID PRN 08/11 1504 AC PO Senna/Docusate Sodium 1 TAB BID 08/11 1218 DC PO Warfarin Sodium 6 MG COUMADIN 1700 ONE 08/11 1700 DC PO 08/11 1701 Warfarin Sodium 7.5 MG COUMADIN 1700 ONE 08/11 1700 DC 08/11 PO 08/11 1701 1800 Laboratory Tests 08/12 08/12 08/12 0950 0542 0112 Chemistry Sodium (137 - 145 mmol/L) 145 Potassium (3.5 - 5.1 mmol/L) 4.3 Chloride (98 - 107 mmol/L) 106 Carbon Dioxide (22 - 30 mmol/L) 35 H Anion Gap (5 - 16) 4 L BUN (9 - 20 mg/dL) 43 H Creatinine (0.7 - 1.2 mg/dL) 1.5 H Estimated GFR (>60 ml/min) 46 L Glucose (65 - 99 mg/dL) 121 H Calcium (8.4 - 10.2 mg/dL) 7.8 L Phosphorus (2.5 - 4.5 mg/dL) 2.9 Magnesium (1.6 - 2.3 mg/dL) 1.7 Total Bilirubin (0.2 - 1.3 mg/dL) 1.1 AST (17 - 59 U/L) 122 H ALT (21 - 72 U/L) 76 H Albumin (3.5 - 5.0 g/dL) 1.7 L Coagulation PT (9.4 - 12.5 SEC) 21.9 H INR (0.90 - 1.17) 2.00 H APTT (25 - 37 SEC) 76 H 60 H Hematology CBC w Diff NO MAN DIFF REQ WBC (4.8 - 10.8 /CUMM) 9.2 RBC (4.70 - 6.10 /CUMM) 3.09 L Hgb (14.0 - 18.0 G/DL) 9.7 L Hct (42 - 52 %) 29.9 L MCV (80.0 - 94.0 FL) 96.5 H MCH (27.0 - 31.0 PG) 31.2 H MCHC (33.0 - 37.0 G/DL) 32.3 L RDW (11.5 - 14.5 %) 16.8 H Plt Count (130 - 400 /CUMM) 158 MPV (7.4 - 10.4 FL) 10.1 Gran % (42.2 - 75.2 %) 79.1 H Lymphocytes % (20.5 - 51.1 %) 13.7 L Monocytes % (1.7 - 9.3 %) 4.6 Eosinophils % (0 - 5 %) 2.5 Basophils % (0.0 - 2.0 %) 0.1 Absolute Granulocytes (1.4 - 6.5 /CUMM) 7.2 H Absolute Lymphocytes (1.2 - 3.4 /CUMM) 1.3 Absolute Monocytes (0.10 - 0.60 /CUMM) 0.4 Absolute Eosinophils (0.0 - 0.7 /CUMM) 0.2 Absolute Basophils (0.0 - 0.2 /CUMM) 0 08/11 08/11 08/11 1330 1250 0456 Blood Gas pH (7.35 - 7.45 PH) 7.54 H pCO2 (35 - 45 TORR) 39 pO2 (80 - 100 TORR) 97 HCO3 (21 - 28 MEQ/L) 32 H ABG O2 Sat (Measured) (>96.0 %) 97.0 Carboxyhemoglobin (1.5 - 5.0 %) 0.7 L O2 Concentration % 35% Respiration Rate (BPM) 21 O2 Delivery Method VENT Vent Mode CPAP Expiratory Pressure (CMH2O/P) 5 Pressure Support (CMH2O/P) 6 Chemistry Sodium (137 - 145 mmol/L) 147 H Potassium (3.5 - 5.1 mmol/L) 3.9 Chloride (98 - 107 mmol/L) 105 Carbon Dioxide (22 - 30 mmol/L) 36 H Anion Gap (5 - 16) 5 BUN (9 - 20 mg/dL) 47 H Creatinine (0.7 - 1.2 mg/dL) 1.5 H Estimated GFR (>60 ml/min) 46 L BUN/Creatinine Ratio (7 - 25 %) 31.3 H Coagulation PT (9.4 - 12.5 SEC) 18.3 H INR (0.90 - 1.17) 1.67 H APTT (25 - 37 SEC) 61 H 58 H Hematology CBC w Diff MAN DIFF ORDERED WBC (4.8 - 10.8 /CUMM) 10.5 RBC (4.70 - 6.10 /CUMM) 3.26 L Hgb (14.0 - 18.0 G/DL) 10.3 L Hct (42 - 52 %) 31.3 L MCV (80.0 - 94.0 FL) 95.8 H MCH (27.0 - 31.0 PG) 31.5 H MCHC (33.0 - 37.0 G/DL) 32.8 L RDW (11.5 - 14.5 %) 17.0 H Plt Count (130 - 400 /CUMM) 143 MPV (7.4 - 10.4 FL) 10.0 Gran % (42.2 - 75.2 %) 80.7 H Lymphocytes % (20.5 - 51.1 %) 12.2 L Monocytes % (1.7 - 9.3 %) 4.6 Eosinophils % (0 - 5 %) 2.2 Basophils % (0.0 - 2.0 %) 0.3 Absolute Granulocytes (1.4 - 6.5 /CUMM) 8.5 H Absolute Lymphocytes (1.2 - 3.4 /CUMM) 1.3 Absolute Monocytes (0.10 - 0.60 /CUMM) 0.5 Absolute Eosinophils (0.0 - 0.7 /CUMM) 0.2 Absolute Basophils (0.0 - 0.2 /CUMM) 0 Platelet Estimate (ADEQUATE) ADEQUATE Hypochromic-Microcytic 1+ Poikilocytosis 1+ Ovalocytes 2+ Miscellaneous Phlebotomy Draw Site LEFT RADIAL 08/10 08/10 2305 1600 Coagulation APTT (25 - 37 SEC) 36 > 120 *H Vital Signs & I&O Last 24 Hrs of Vitals and I&O: Vital Signs Date Time Temp Pulse Resp B/P B/P Pulse O2 O2 Flow FiO2 Mean Ox Delivery Rate 08/12 0831 35 08/12 08 96 Ventilator 35% 08/12 0800 98.8 86 18 112/60 96 Ventilator 35% 08/12 0533 35 08/12 0400 97 Ventilator 35% 08/12 0326 35 08/12 0046 35 08/12 0000 97 Ventilator 35% 08/11 2300 97.8 80 19 98/70 97 Ventilator 35% 08/11 2212 35 08/11 2000 93 Ventilator 35% 08/11 1900 35 08/11 1830 103 102/60 0310 1634 35 08/11 1600 97.1 96 22 98/70 95 Ventilator 35% 08/11 1600 96 Ventilator 35% 08/11 1315 90 90/50 Intake & Output 08/12 1600 08/12 0800 08/12 0000 Intake Total 995 734 Output Total 580 700 Balance 415 34 Intake, IV 186 161 Intake, Tube 509 423 Feeding Intake, Tube 300 150 Irrigant Number 0 0 Bowel Movements Output, Urine 580 700 Impression/Plan Impression/Plan Impression/Plan: IMPRESSION This is a 72-year-old gentleman with history of diabetes, previous heart failure diastolic, previous syncope, came into the hospital as was brought in from his home as his landlord found him on the floor. (History on admission Patient apparently had had a previous fall in the snow as well.In the emergency room he was noted to have significant atrial fibrillation with tachycardia and he was hypotensive and hemodynamically unstable and had to have emergent cardioversion as his blood pressure was slow and he was unstable. Per history he has been non -compliant and has not seen any physicians in the recent past., Initially pt was conversant but slightly confused and since arriving in the ed he became less responsive and agitated requiring ativan and now appears to be worse with worsening mental status, with no fever (Apparently was lucid when he came in and he did not have any temperature and he was not complaining of a headache). Subsequently he became more confused and had to require large doses of Ativan as he was cardioverted emergently by Dr. Hitchcock). ISSUES * Improving Altered mental status with previous fall with no clinical or lab evidence suggestive of significant meningitis, LP not consistant with infection. Apparently his mental status when he came in was relatively preserved with mild confusion and patient now has significantly decreased mentation which is slowly improving - dif dx include brain stem stroke (lv clot and pafib) vs other etiology, Neuro and ID on board. Pt now has left side weakness and exam consistant with a stroke * Improving Sig hypoxic and hypercarbic resp failure mainly due to Systolic chf and afib compounded by decreased mental status and inability to maintain his secretions now status post intubation * Improving PUlm edema with effusions with acute lung injury * Initial Rapid atrial fibrillation with significantly large intraventricular clot with PAFIb and at times flutter now in sinus on heparin, being transitioned to warfarin * Prob pneumonia now with no fever s/p 7 days of ceftriaxone and cultures are neg * Total body fluid overload with edema with bilateral pleural effusion, atelectasis, clinical evidence suggestive of systolic and diastolic heart failure, with resolved congested liver * Type II IL versus Acute coronary syndrome followed by cardio * Bilateral pulmonary infiltrates with resolved thick yellow-green sputum suggestive of pneumonia s/p abx * Chronic kidney disease with acute renal insufficiency, appears to be improving * No DVT/ No sig arterial ischemia * Recent Worsening performance status with previous hypertension hyperlipidemia and medical noncompliance * Lower ext chronic venostasis * Improving thrombocytopenia and HIT antibody neg * Unlikely pe but cannot rule out and not a candidate for vq and pt anticoag anyway REC Continue mechanical ventilation/ PSV trials and extubate today IV lasix q12 daily Warfarin 5 mg tonight and check inr in am Cont ppi Keep potassium more than 4 and replace down ng tube Ipratropim neb prn Keep mag more than 4 Pt continues to be critically ill tts 40 mins Discussed with the son
--- NOTE | 2017-08-12 15:23 | PN- Cardiology ---
Subjective Subjective: * Patient is appropriately responsive. He does not have full movement of the left arm. * sinus rhythm with ventricular ectopy * creatinine improved to 1.5 * approximately stable H/H Objective Vital Signs and I&Os Vital Signs Date Time Temp Pulse Resp B/P B/P Pulse O2 O2 Flow FiO2 Mean Ox Delivery Rate 08/12 1313 35 08/12 1100 98 92/50 08/12 0831 35 08/12 0800 96 Ventilator 35% 08/12 0800 98.8 86 18 112/60 96 Ventilator 35% 08/12 0533 35 08/12 0400 97 Ventilator 35% 08/12 0326 35 08/12 0046 35 08/12 0000 97 Ventilator 35% 08/11 2300 97.8 80 19 98/70 97 Ventilator 35% 08/11 2212 35 08/11 2000 93 Ventilator 35% 08/11 1900 35 08/11 1830 103 102/60 10 1634 35 08/11 1600 97.1 96 22 98/70 95 Ventilator 35% 08/11 1600 96 Ventilator 35% Intake & Output 08/12 1600 08/12 0800 08/12 0000 08/11 1600 08/11 0800 03 0000 Intake Total 063 046 0284 850 1152 Output Total 169 111 1065 1000 700 Balance 415 34 -26 -150 452 Intake, IV 186 161 214 144 293 Intake, Other 460 Intake, Tube 509 423 600 480 509 Feeding Intake, Tube 300 150 226 350 Irrigant Number 0 0 2 0 0 Bowel Movements Output, Urine 714 868 6071 1000 700 Patient 223 lb Weight Weight Bed scale Measurement Method Physical Exam: General: WD/obese; intubated; alert and responsive Neck: no JVD, no carotid bruit Heart: RRR, no murmur Lungs: clear bilaterally Extremities: 2+ bilateral pedal edema with bilateral erythema L>R Neuro: decreased movement of left arm and hand Assessment/Plan Assessment/Plan * This patient is now intubated but appears alert and appropriately responsive. He does have decreased movement of his left arm consistent with a CVA which is certainly a possibility considering his initial presentation in atrial fibrillation. An EEG reportedly showed low voltage. His head CT was negative for a stroke but it is anticipated that that patient may be extubated tomorrow or Sunday and at that time an MRI may be considered. * This patient had a rise in cardiac enzymes consistent with a type 2 NJ upon initial presentation. He has no chest discomfort and there are no clear ST segment elevations. Monitor his cardiac enzymes until they peak. He will not be able to tolerate nitrates due to his blood pressure which dropped after receiving NTG by EMS. Rate control will be the most effective means of limiting any myocardial ischemia. Continue aspirin 325mg daily. * Atrial fibrillation. It is unknown how long this patient had been in atrial fibrillation but due to hemodynamic instability he was cardioverted to a sinus rhythm and is hemodynamically improved. 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 Will proceed with a NOELLE to differentiate thrombus from tumor on Sunday or Sunday. Keep NPO except medications after midnight. Continue anticoagulation. Continue telemetry? Yes
[2017-08-12 16:00] VITALS: BP 112/68
--- NOTE | 2017-08-12 20:50 | RADIOLOGY REPORT ---
EXAMINATION: XR PORTABLE CHEST CLINICAL INFORMATION: NG tube placement COMPARISON: 08/12/2017 chest x-ray at 5:07 AM TECHNIQUE: Portable frontal view of the chest was obtained. FINDINGS: There is an enteric tube in place with its tip projecting over the left upper quadrant of the abdomen. Cardiomegaly, pulmonary venous congestion and interstitial edema redemonstrated. Left-sided pleural effusion is present. No pneumothorax. IMPRESSION: The tip of enteric tube projects over the left upper quadrant of abdomen. CHF and left-sided pleural effusion.
[2017-08-12 23:27] LABS: PTT 115 SEC (25-37)
[2017-08-13] VITALS: BP 102/54
[2017-08-13 05:28] LABS: ABSOLUTE BASOPHIL COUNT 0 /CUMM (0.0-0.2); ABSOLUTE EOSINOPHIL COUNT 0 /CUMM (0.0-0.7); ABSOLUTE GRANULOCYTE CT 12.4 /CUMM (1.4-6.5); ABSOLUTE LYMPH COUNT 0.9 /CUMM (1.2-3.4); ABSOLUTE MONOCYTE COUNT 0.3 /CUMM (0.10-0.60); BASOPHIL % 0 % (0.0-2.0); EOSINOPHIL % 0.1 % (0-5); GRANULOCYTE % 91.2 % (42.2-75.2); HEMATOCRIT 31.7 % (42-52); MEAN CORPUSCULAR HGB 32.1 PG (27.0-31.0); MEAN CORPUSCULAR HGB CONC 33.4 G/DL (33.0-37.0); MEAN CORPUSCULAR VOLUME 96.3 FL (80.0-94.0); MEAN PLATELET VOLUME 9.8 FL (7.4-10.4); PLATELET COUNT 211 /CUMM (130-400); RBC DISTRIBUTION WIDTH 16.8 % (11.5-14.5); RED BLOOD CELL CT 3.29 /CUMM (4.70-6.10); WHITE BLOOD CELL COUNT 13.6 /CUMM (4.8-10.8)
[2017-08-13 06:00] LABS: PTT 73 SEC (25-37)
--- NOTE | 2017-08-13 07:40 | PN- Resident CRCU ---
Subjective HPI/CRCU Issues: GBS 24 Hour Events: Saw pt this AM. He was satting in the mid 80s on 2L o2. He was not tachycardic of tachypneic during my exam. He was extubated and even conversant though he was largely unintelligible. He failed swallow eval this AM and con't to be NPO. Vitals: Tmax 98.8, HR 80-100, RR 18-30, BPmanual (96/68)-(112/68), satting 82% on NC 3L. Prev day I: 3003, Prev day O: 2580 Total I: 86943, Total O: 03209 Continues to be on IV heparin. Objective Vital Signs & I&O Last 8 Hrs of Vitals and I&O: Intake & Output 08/13 1600 Intake Total 331 Output Total 1400 Balance -1069 Intake, IV 191 Intake, Tube 140 Irrigant Number 0 Bowel Movements Output, Urine 1400 Exam General Appearance: no apparent distress, alert, awake Head: atraumatic, normal appearance Ears, Nose, Throat: normal ENT inspection Neck: normal inspection, supple, full range of motion Respiratory: crackles at bases and little to no air movement heard on l. side Cardiovascular: regular rate/rhythm, edema Gastrointestinal: soft, non-tender Extremities: r. leg still erythematous. Open sores in bilat LE. 2+ EDEMA PRESENT IN BILAT LE, SEEMS LIKE HE IS UNABLE TO MOVE HIS LEFT EXTREMETIES Weaning Parameters NIF: 333 Minute Volume: 10.0 Resp rate: 20 Vt: 555 Heart Rate: 95 Weaning Schedule Start Time: 0955 Minute Volume: 7.05 Resp Rate: 25 Vt: 300 Heart Rate: 97 End Time: 1155 Minute Volume: 7.93 Resp Rate: 19 Vt: 410 Heart Rate: 95 Start Time: 1250 Current Medications: Current Medications Sig/Richard Start time Last Medication Dose Route Stop Time Status Admin Albuterol Sulfate 3 ML EVERY 4 HRS/AWAKE 08/15 1999 AC 08/22 INH 1142 Aspirin 81 MG DAILY 08/17 1000 AC 08/22 PO 0913 Atorvastatin Calcium 80 MG 1700 08/16 1730 AC 08/21 PO 1638 Carvedilol 25 MG BID 08/11 1245 AC 08/22 PO 09 Chlorhexidine 10 ML TID 08/21 1814 AC 08/22 Gluconate PO 09 Diphenhydramine HCl 1 CYN DAILY 08/10 2300 DC 08/21 TOP 0754 Docusate Sodium 100 MG DAILY NEEDED PRN 08/11 1230 AC PO Glycerin 2 SPRAY Q2P PRN 08/11 0215 AC 08/20 PO 1841 Heparin Sodium 5,000 UNIT .STK-MED ONE 08/21 2301 DC (Porcine) IV 08/21 2302 Heparin Sodium 3,600 UNIT BOLUS ONE 08/21 2300 DC 08/21 (Porcine) IV 08/21 2301 2355 Heparin Sodium/ 25,000 UNIT Q24H 08/16 1045 AC 08/21 Dextrose IV 2113 Dextrose/Water 500 ML Loratadine 10 MG DAILY 08/21 1813 AC 08/22 PO 0913 Pantoprazole Sodium 40 MG DAILY 08/15 1000 AC 08/22 IV 0914 Potassium Chloride 40 MEQ DAILY 08/16 1000 AC 08/22 PO 0914 Senna/Docusate Sodium 1 TAB BID PRN 08/11 1504 AC 08/18 PO 1009 Sodium Chloride 2 SPRAY Q4P PRN 08/18 1000 AC WENDI Impression/Plan Impression/Problem List Impression: This is a 72 yo male with PMH of CHF, HTN, per family he had an SC and had a stent placement at [facility] about 7 years ago, prev hx of syncope who comes in for CC AMS after being found down for unknown duration. He was found to be in a.fib RVR up to 200, he was confused and agitated. In ED multiple pushes of Lopressor and cardizem drip failed to adequately control his HR and he became hypotensive with systolic in 80s and even more confused. After cardiology evaluation decision was made to cardiovert pt for hemodynamic instability. First cardioversion with 50 J unsuccessful, second cardioversion with 70 J successful and pt went into NSR with rate 80-90s. He has since been intubated for respiratory distress and extubated on 08/12. His mental status has improved since admission but he continues to be altered with very slurred speech and inability to move l. side extremeties. Day of Admission: Aug PLAN: Respiratory: Hypoxic respiratory failure: Was intubated on 08/08/17 for airway protection and increasing oxygen requirements and was extubated on 08/12/2017. This AM he was hypoxic down to low 80s. Placed him on facemask. He is now saturating well. CAT scan is suggestive of Multifocal PNA vs worsening edema. * Continue to diurese but dropped IV lasix from 40 BID to 40 daily as pt BP borderline. * ABG if necessary * Repeat blood work showed increasing WBC up to 14.9. * Will start ceftaz/vanco to treat for hospital acquired pneumonia at this time. 08/13/2017 * Set of blood cultures and sputum obtained before administration of abx. 2017 * Mucomyst and chest PT started on 08/13 ID: Left leg Cellulitis: Recent erythema noted, improved swelling. Initially given two doses of vancomycin and has completed a seven-day course of IV ceftriaxone. WBC trending upwards today again but more suspicious of a pulm source of infection. However his l ext is still erythematous. * Con't monitor * Starting ceftaz/vanco on pt for different source but con't monitor. Cardio: AFIB RVR: S/P synch cardioversion on admission due to hemodynamic instability with hypotension and worsening mental status. On admission EKG showed rate 190, irregularly irregular rhythm, evidence of RBBB and L fascicular block. TFT WNL. Initially on cardizem drip and gradually tapered off. Currently pt is NSR with frequent PAC. Chadvasc2 score= 5, with HAS-BLED score of 3 * Monitor on tele * Heparin drip started, bridged and then transitioned to Coumadin on 08/13/2017 * Coreg 20mg po BID * IV Cardizem drip dc 08/06/17 Elevated Troponin/CAD: Resolved. First trop 1.71, then peaked at 1.98. EKG on admission showed a.fib RVR. THought to be secondary to demand due to tachycardia and less likely plaque rupture. RESOLVED. Initially treated with heparin. * ASA 81 CHF: ECHO- Low normal EF of 50% with inferoapical and apical hypokinesis. Large apical thrombus. Moderate left ventricular hypertrophy. Moderate left atrial enlargement. Mild mitral regurgitation. Mild tricuspid regurgitation. Mild pulmonary hypertension. Small pericardial effusion. Pt has significant LE edema, and cxr with evidence of volume overload. BNP 4650, no previous value. Pt is desatting today. Unsure if this is multifocal PNA vs heart failure. * Beta dick scheduled as above. * Holding Lisinopril for hypotension * Appreciate cardio recs * Strict I/O * Eason placed * Lasix IV 40 daily with good diuresis (Previously on IV BID but pressure was borderline) Heme/onc: Left upper extremity swelling * Improving * Elevate arm, apply cold compressions * ultrasound ruled out DVT Thrombocytopenia: Improving. 4t SCORE = 4 intermediate probability. Hit antibody 0.162, which is indeterminate. Serotonin assay negative * Monitor Plt Metabolic: Lactic acidosis: RESOLVED. Elevated Phos: Phos at 5.1 today. Con't monitor. GFR seems stable. Pt has been getting diuretic with excellent output. * Consider phos binding agent if continue to trend upwards. Hypernatremia: Todat 147. Likely due to diuresis * Decreased lasix from BID to daily. * Con't water flushes as is Alimentary: Transamanitis: Pt has improving transamanitis but also had elevated t.bili, low plt and elevated INR on admission. Pt has unknown hx etoh consumption. DDX: etoh, drug induced, and hepatic congestion. CAT scan not suggestive of hepatic cirrhosis.UTOX negative. He recieved Hi-dose thiamine q8 for 3 doses. Today at Tbili 1.4, AST 123, ALT 87. Albumin 2.0. * Con't monitor LFT Tube feeds: rate increased to 80 Nephro: Chronic vs Acute Renal Failure: On admission Cr 1.8 with BUN 61 Historically Cr between 1.1-2.3. Today Cr 1.5. Seems to be his stable baseline. He is gettin water flushes via TF. Cryo shows low C3 and C4. He also high alpha 1 globulin. Communicated with nephro will address cryos tomorrow. * Cont monitor * avoid nepro toxins * Nephro will see prn Neuro: AMS: Slowly Improving now obeying simple commands and opening his eyes spontaneously and responding. DDX at this time: Cerebral edema, stroke, medication use cannot be ruled out as we are still unclear at to what medications he took prior to admission. Work up so far shows: Urine culture showed no growth, blood cultures showed no growth, urine antigens negative for strep pneumo and Legionella, CSF culture and Gram stain negative. HSV PCR /HIV neg Low complement levels, will follow-up cryoglobulin (hep C negative) Acetaminophen/salicycylates levels within normal. CT head 3 showed no acute intracranial pathology, midline shift or hemorrhage. CT abdomen and pelvis showed sigmoid diverticulosis without evidence of diverticulitis. EEG done 08/06 revealed diffuse generalized slowing to delta range rhythms. The average amplitude is very low in the 5-10 microvolt range. Suggestive of diffuse cerebral dysfunction and a non-specific encephalopathy. LP done 08/06/17 not significant for infection * ID and neurology consult appreciated. Will follow recommendations * Neuro check * NPO * Appreciate neuro recs * MRI today * Avoid all sedating medication * Consider repeat EEG DVT: IV heparin/coumadin full code guarded prognosis Consults: Critical care Cardiology Infectious disease Nephrology Things to follow: Awaiting NOELLE tomorrow MRI tomorrow likely Continue gentle monitor and replete electrolytes PT/OT when able Only speak to: Son Jose Pike [phone] TRY HIM FIRST Brother Itz Pike [phone] Winifred () no one else should visit the patient or given any updates/information has estranged brother Kimberly Pike who should not be allowed to visit or given any information Problem List: 1. Rapid atrial fibrillation 2. Hypotension 3. Acute respiratory failure 4. Altered mental state Pain Ratin Tomorrow's Labs & Rationales: ICU CBC Plan DVT/Prophylaxis: pharmacological
[2017-08-13 08:00] VITALS: BP 122/72
--- NOTE | 2017-08-13 10:00 | PN- CRCU ---
Subjective HPI/Critical Care Issues: Status post extubation Much improved Has had significant adequate diuresis since yesterday Now on 3 L saturating 97% Alert awake at times confused Follows commands Has an NG tube Does continue to have left arm weakness and some left lower extremity weakness. Vital signs reviewed Blood work reviewed as noted creatinine BU and has been stable baseline bicarbonate is elevated white count is now 13.6 with a left shift his INR is now 2.45 patient has been on warfarin his cultures have been negative Objective Current Medications: Current Medications Sig/Richard Start time Last Medication Dose Route Stop Time Status Admin Albuterol Sulfate 3 ML Q4P PRN 08/04 1330 AC 08/06 INH 0832 Aspirin 300 MG DAILY 08/13 1000 CAN IA Aspirin 325 MG DAILY 08/13 1000 AC 08/13 PO 0936 Aspirin 81 MG DAILY 08/09 1000 DC 08/12 PO 1011 Carvedilol 25 MG BID 08/11 1245 AC 08/13 PO 0936 Diphenhydramine HCl 1 CYN DAILY 08/10 2300 AC 08/13 TOP 0837 Docusate Sodium 100 MG DAILY NEEDED PRN 08/11 1230 AC PO Furosemide 40 MG BID 08/12 2200 AC 08/13 IV 0837 Furosemide 40 MG ONCE ONE 08/12 1100 DC 08/12 IV 08/12 1101 1402 Furosemide 40 MG DAILY 08/11 1000 DC 08/12 IV 0953 Glycerin 2 SPRAY Q2P PRN 08/11 0215 AC PO Heparin Sodium/ 25,000 UNIT Q24H 08/08 1500 AC 08/12 Dextrose IV 1700 Dextrose/Water 500 ML Ipratropium [place] 2.5 ML Q4P PRN 08/09 1430 AC INH Methylprednisolone 40 MG ONCE ONE 08/12 1100 DC 08/12 IV 08/12 1101 1401 Nystatin 1 CYN BID PRN 08/03 0645 AC 08/08 TOP 0936 Pantoprazole Sodium 40 MG DAILY 08/03 1000 AC 08/13 IV 0837 Potassium Chloride 40 MEQ BID 08/10 1300 AC 08/13 PO 0936 Senna/Docusate Sodium 1 TAB BID PRN 08/11 1504 AC PO Warfarin Sodium 5 MG ONCE ONE 08/12 1900 DC 08/12 PO 08/12 1901 2208 Warfarin Sodium 4 MG COUMADIN 1700 ONE 08/12 1700 CAN PO 08/12 1701 Laboratory Tests 08/13 08/13 08/12 0505 0505 2220 Chemistry Sodium (137 - 145 mmol/L) 149 H Potassium (3.5 - 5.1 mmol/L) 4.9 Chloride (98 - 107 mmol/L) 107 Carbon Dioxide (22 - 30 mmol/L) 35 H Anion Gap (5 - 16) 8 BUN (9 - 20 mg/dL) 47 H Creatinine (0.7 - 1.2 mg/dL) 1.5 H Estimated GFR (>60 ml/min) 46 L Glucose (65 - 99 mg/dL) 128 H Calcium (8.4 - 10.2 mg/dL) 8.4 Phosphorus (2.5 - 4.5 mg/dL) 4.9 H Magnesium (1.6 - 2.3 mg/dL) 1.7 Total Bilirubin (0.2 - 1.3 mg/dL) 1.3 AST (17 - 59 U/L) 125 H ALT (21 - 72 U/L) 94 H Albumin (3.5 - 5.0 g/dL) 2.0 L Coagulation PT (9.4 - 12.5 SEC) 27.0 H INR (0.90 - 1.17) 2.45 H APTT (25 - 37 SEC) Cancelled 73 H 115 *H Hematology CBC w Diff NO MAN DIFF REQ WBC (4.8 - 10.8 /CUMM) 13.6 H RBC (4.70 - 6.10 /CUMM) 3.29 L Hgb (14.0 - 18.0 G/DL) 10.6 L Hct (42 - 52 %) 31.7 L MCV (80.0 - 94.0 FL) 96.3 H MCH (27.0 - 31.0 PG) 32.1 H MCHC (33.0 - 37.0 G/DL) 33.4 RDW (11.5 - 14.5 %) 16.8 H Plt Count (130 - 400 /CUMM) 211 MPV (7.4 - 10.4 FL) 9.8 Gran % (42.2 - 75.2 %) 91.2 H Lymphocytes % (20.5 - 51.1 %) 6.9 L Monocytes % (1.7 - 9.3 %) 1.8 Eosinophils % (0 - 5 %) 0.1 Basophils % (0.0 - 2.0 %) 0 Absolute Granulocytes (1.4 - 6.5 /CUMM) 12.4 H Absolute Lymphocytes (1.2 - 3.4 /CUMM) 0.9 L Absolute Monocytes (0.10 - 0.60 /CUMM) 0.3 Absolute Eosinophils (0.0 - 0.7 /CUMM) 0 Absolute Basophils (0.0 - 0.2 /CUMM) 0 08/12 08/12 08/12 1335 1335 0950 Blood Gas pH (7.35 - 7.45 PH) 7.53 H Cancelled pCO2 (35 - 45 TORR) 37 Cancelled pO2 (80 - 100 TORR) 109 H Cancelled HCO3 (21 - 28 MEQ/L) 30 H Cancelled ABG O2 Sat (Measured) (>96.0 %) 98.0 Cancelled P-50 (Temp Corrected) YES Cancelled Carboxyhemoglobin (1.5 - 5.0 %) 0.3 L Cancelled O2 Concentration % 35% Cancelled Temperature (97.0 - 100.0 FARH) 98.8 Cancelled O2 Delivery Method VENT Cancelled Vent Mode CPAP Expiratory Pressure (CMH2O/P) 5 Pressure Support (CMH2O/P) 6 Coagulation APTT (25 - 37 SEC) 76 H Miscellaneous Phlebotomy Draw Site RIGHT RADIAL Cancelled 08/12 08/12 08/11 0542 0112 1330 Blood Gas pH (7.35 - 7.45 PH) 7.54 H pCO2 (35 - 45 TORR) 39 pO2 (80 - 100 TORR) 97 HCO3 (21 - 28 MEQ/L) 32 H ABG O2 Sat (Measured) (>96.0 %) 97.0 Carboxyhemoglobin (1.5 - 5.0 %) 0.7 L O2 Concentration % 35% Respiration Rate (BPM) 21 O2 Delivery Method VENT Vent Mode CPAP Expiratory Pressure (CMH2O/P) 5 Pressure Support (CMH2O/P) 6 Chemistry Sodium (137 - 145 mmol/L) 145 Potassium (3.5 - 5.1 mmol/L) 4.3 Chloride (98 - 107 mmol/L) 106 Carbon Dioxide (22 - 30 mmol/L) 35 H Anion Gap (5 - 16) 4 L BUN (9 - 20 mg/dL) 43 H Creatinine (0.7 - 1.2 mg/dL) 1.5 H Estimated GFR (>60 ml/min) 46 L Glucose (65 - 99 mg/dL) 121 H Calcium (8.4 - 10.2 mg/dL) 7.8 L Phosphorus (2.5 - 4.5 mg/dL) 2.9 Magnesium (1.6 - 2.3 mg/dL) 1.7 Total Bilirubin (0.2 - 1.3 mg/dL) 1.1 AST (17 - 59 U/L) 122 H ALT (21 - 72 U/L) 76 H Albumin (3.5 - 5.0 g/dL) 1.7 L Coagulation PT (9.4 - 12.5 SEC) 21.9 H INR (0.90 - 1.17) 2.00 H APTT (25 - 37 SEC) 60 H Hematology CBC w Diff NO MAN DIFF REQ WBC (4.8 - 10.8 /CUMM) 9.2 RBC (4.70 - 6.10 /CUMM) 3.09 L Hgb (14.0 - 18.0 G/DL) 9.7 L Hct (42 - 52 %) 29.9 L MCV (80.0 - 94.0 FL) 96.5 H MCH (27.0 - 31.0 PG) 31.2 H MCHC (33.0 - 37.0 G/DL) 32.3 L RDW (11.5 - 14.5 %) 16.8 H Plt Count (130 - 400 /CUMM) 158 MPV (7.4 - 10.4 FL) 10.1 Gran % (42.2 - 75.2 %) 79.1 H Lymphocytes % (20.5 - 51.1 %) 13.7 L Monocytes % (1.7 - 9.3 %) 4.6 Eosinophils % (0 - 5 %) 2.5 Basophils % (0.0 - 2.0 %) 0.1 Absolute Granulocytes (1.4 - 6.5 /CUMM) 7.2 H Absolute Lymphocytes (1.2 - 3.4 /CUMM) 1.3 Absolute Monocytes (0.10 - 0.60 /CUMM) 0.4 Absolute Eosinophils (0.0 - 0.7 /CUMM) 0.2 Absolute Basophils (0.0 - 0.2 /CUMM) 0 Miscellaneous Phlebotomy Draw Site LEFT RADIAL 08/11 1250 Coagulation APTT (25 - 37 SEC) 61 H Vital Signs & I&O Last 24 Hrs of Vitals and I&O: Vital Signs Date Time Temp Pulse Resp B/P B/P Pulse O2 O2 Flow FiO2 Mean Ox Delivery Rate 08/13 0936 81 121/71 08/13 0400 97 Nasal 3.0L Cannula 08/13 0000 97.1 80 18 102/54 97 Nasal 3.0L Cannula 08/13 0000 97 Nasal 3.0L Cannula 08/12 2208 99 102/59 08/12 2153 96 Nasal 3.0L Cannula 08/12 2000 94 Nasal 3.0L Cannula 08/12 1600 98.9 98 24 112/68 97 Nasal 3.0L Cannula 08/12 1600 98 Nasal 3.0L Cannula 08/12 1313 35 08/12 1200 96 Ventilator 35% 08/12 1100 98 92/50 Intake & Output 08/13 1600 08/13 0800 08/13 0000 Intake Total 145 338 Output Total 1800 2600 Balance -1655 -2262 Intake, IV 145 238 Intake, Oral 0 0 Intake, Other 100 Number 0 0 Bowel Movements Output, Urine 1800 2600 Patient 210 lb Weight Weight Bed scale Measurement Method Impression/Plan Impression/Plan Impression/Plan: This is a 72-year-old gentleman with history of diabetes, previous heart failure diastolic, previous syncope, came into the hospital as was brought in from his home as his landlord found him on the floor. (History on admission Patient apparently had had a previous fall in the snow as well.In the emergency room he was noted to have significant atrial fibrillation with tachycardia and he was hypotensive and hemodynamically unstable and had to have emergent cardioversion as his blood pressure was slow and he was unstable. Per history he has been non -compliant and has not seen any physicians in the recent past., Initially pt was conversant but slightly confused and since arriving in the ed he became less responsive and agitated requiring ativan and now appears to be worse with worsening mental status, with no fever (Apparently was lucid when he came in and he did not have any temperature and he was not complaining of a headache). Subsequently he became more confused and had to require large doses of Ativan as he was cardioverted emergently by Dr. Hitchcock). ISSUES * Slow improvement in mental status, now with clinical evidence of stroke with left upper ext weakness * REsolved resp failure due to pulm edema and asp pna s/p rx * PAFIB in sinus s/p electrical cardioversion due to hemodynamic instablility now anticoagulate with heparin and transitioned to warfarin. Pt has an intraventricular clot probably * Resolving Total body fluid overload with edema with bilateral pleural effusion , atelectasis, clinical evidence suggestive of systolic and diastolic heart failure, with resolved congested liver * Type II NJ versus Acute coronary syndrome followed by cardio * Chronic kidney disease with acute renal insufficiency, appears to be improving * No DVT/ No sig arterial ischemia * Previous history of hypertension hyperlipidemia and medical noncompliance * Lower ext chronic venostasis * REsolved thrombocytopenia REC Cont current rx Swallow eval MRI head Reduce lasix to qd DC heparin and cont warfarin 2.5 mg tonight Keep potassium more than 4 and replace down ng tube Ipratropim neb prn Keep mag more than 4 FOr NOELLE soon WIll follow
--- NOTE | 2017-08-13 10:59 | PN- Infect Dx ---
Subjective Subjective: Afebrile without complaints. He was extubated yesterday afternoon. Objective Last 24 Hrs of Vital Signs/I&O Vital Signs Date Time Temp Pulse Resp B/P B/P Pulse O2 O2 Flow FiO2 Mean Ox Delivery Rate 08/13 0936 81 121/71 08/13 0400 97 Nasal 3.0L Cannula 08/13 0000 97.1 80 18 102/54 97 Nasal 3.0L Cannula 08/13 0000 97 Nasal 3.0L Cannula 08/12 2208 99 102/59 08/12 2153 96 Nasal 3.0L Cannula 08/12 2000 94 Nasal 3.0L Cannula 08/12 1600 98.9 98 24 112/68 97 Nasal 3.0L Cannula 08/12 1600 98 Nasal 3.0L Cannula 08/12 1313 35 08/12 1200 96 Ventilator 35% 08/12 1100 98 92/50 Intake & Output 08/13 1600 08/13 0800 08/13 0000 Intake Total 145 338 Output Total 1800 2600 Balance -1655 -2262 Intake, IV 145 238 Intake, Oral 0 0 Intake, Other 100 Number 0 0 Bowel Movements Output, Urine 1800 2600 Patient 210 lb Weight Weight Bed scale Measurement Method Physical Exam Other Physical Findings: He is awake and alert in no acute distress; speech somewhat slurred Lungs decreased breath sounds at the right base Heart regular rhythm with no murmur Extremities decreased edema both lower extremities, with decreased erythema also noted; PICC in the right upper extremity, further withdrawn, without inflammation at the site Neuro left hemiparesis Eason catheter remains in place Results Last 24 Hours of Lab Results: Laboratory Tests 08/13 08/13 08/12 0505 0505 2220 Chemistry Sodium (137 - 145 mmol/L) 149 H Potassium (3.5 - 5.1 mmol/L) 4.9 Chloride (98 - 107 mmol/L) 107 Carbon Dioxide (22 - 30 mmol/L) 35 H Anion Gap (5 - 16) 8 BUN (9 - 20 mg/dL) 47 H Creatinine (0.7 - 1.2 mg/dL) 1.5 H Estimated GFR (>60 ml/min) 46 L Glucose (65 - 99 mg/dL) 128 H Calcium (8.4 - 10.2 mg/dL) 8.4 Phosphorus (2.5 - 4.5 mg/dL) 4.9 H Magnesium (1.6 - 2.3 mg/dL) 1.7 Total Bilirubin (0.2 - 1.3 mg/dL) 1.3 AST (17 - 59 U/L) 125 H ALT (21 - 72 U/L) 94 H Albumin (3.5 - 5.0 g/dL) 2.0 L Coagulation PT (9.4 - 12.5 SEC) 27.0 H INR (0.90 - 1.17) 2.45 H APTT (25 - 37 SEC) Cancelled 73 H 115 *H Hematology CBC w Diff NO MAN DIFF REQ WBC (4.8 - 10.8 /CUMM) 13.6 H RBC (4.70 - 6.10 /CUMM) 3.29 L Hgb (14.0 - 18.0 G/DL) 10.6 L Hct (42 - 52 %) 31.7 L MCV (80.0 - 94.0 FL) 96.3 H MCH (27.0 - 31.0 PG) 32.1 H MCHC (33.0 - 37.0 G/DL) 33.4 RDW (11.5 - 14.5 %) 16.8 H Plt Count (130 - 400 /CUMM) 211 MPV (7.4 - 10.4 FL) 9.8 Gran % (42.2 - 75.2 %) 91.2 H Lymphocytes % (20.5 - 51.1 %) 6.9 L Monocytes % (1.7 - 9.3 %) 1.8 Eosinophils % (0 - 5 %) 0.1 Basophils % (0.0 - 2.0 %) 0 Absolute Granulocytes (1.4 - 6.5 /CUMM) 12.4 H Absolute Lymphocytes (1.2 - 3.4 /CUMM) 0.9 L Absolute Monocytes (0.10 - 0.60 /CUMM) 0.3 Absolute Eosinophils (0.0 - 0.7 /CUMM) 0 Absolute Basophils (0.0 - 0.2 /CUMM) 0 08/12 08/12 1335 1335 Blood Gas pH (7.35 - 7.45 PH) 7.53 H Cancelled pCO2 (35 - 45 TORR) 37 Cancelled pO2 (80 - 100 TORR) 109 H Cancelled HCO3 (21 - 28 MEQ/L) 30 H Cancelled ABG O2 Sat (Measured) (>96.0 %) 98.0 Cancelled P-50 (Temp Corrected) YES Cancelled Carboxyhemoglobin (1.5 - 5.0 %) 0.3 L Cancelled O2 Concentration % 35% Cancelled Temperature (97.0 - 100.0 FARH) 98.8 Cancelled O2 Delivery Method VENT Cancelled Vent Mode CPAP Expiratory Pressure (CMH2O/P) 5 Pressure Support (CMH2O/P) 6 Miscellaneous Phlebotomy Draw Site RIGHT RADIAL Cancelled Last 24 Hours of Zackery Results: No new cultures Assessment/Plan ID Impression: Overall improved, status post successful extubation yesterday, with temperatures remaining normal, but with his white blood cell count increased today, possibly secondary to hemoconcentration given his significant diuresis, with his sodium also increased today. He remains off antibiotics after a one week course of treatment for possible sepsis secondary to pneumonia versus cellulitis. His left hemiparesis is of some concern and is to be evaluated. Suggestion: 1. Further evaluation of his left hemiparesis per Medicine 2. Further management of his fluid status per Renal 3. Continue to follow off antibiotics
--- NOTE | 2017-08-13 12:38 | RADIOLOGY REPORT ---
EXAMINATION: XR PORTABLE CHEST CLINICAL INFORMATION: Desaturation to 80% on 6 L of nasal cannula oxygen. Rule out pneumonia or pneumothorax. COMPARISON: 08/12/2017 TECHNIQUE: Portable frontal view of the chest was obtained. FINDINGS: Enteric tube extends below the diaphragm. The lungs are well expanded. Increasing opacity at the left mid to lower lung. Increased hazy right basilar opacity. There may be a left pleural effusion. No pneumothorax. The cardiomediastinal silhouette is not well evaluated due to the left basilar opacity. IMPRESSION: Increased opacity at the left mid to lower lung and at the right base. Finding is most concerning for multifocal pneumonia. There may be a left pleural effusion as well. No pneumothorax.
[2017-08-13 14:18] LABS: ABSOLUTE BASOPHIL COUNT 0 /CUMM (0.0-0.2); ABSOLUTE EOSINOPHIL COUNT 0 /CUMM (0.0-0.7); ABSOLUTE GRANULOCYTE CT 13.4 /CUMM (1.4-6.5); ABSOLUTE LYMPH COUNT 1.1 /CUMM (1.2-3.4); ABSOLUTE MONOCYTE COUNT 0.4 /CUMM (0.10-0.60); BASOPHIL % 0 % (0.0-2.0); EOSINOPHIL % 0.1 % (0-5); MEAN CORPUSCULAR HGB 31.8 PG (27.0-31.0); MEAN CORPUSCULAR HGB CONC 33.1 G/DL (33.0-37.0); MEAN CORPUSCULAR VOLUME 96.1 FL (80.0-94.0); MEAN PLATELET VOLUME 10.9 FL (7.4-10.4); PLATELET COUNT 212 /CUMM (130-400); RBC DISTRIBUTION WIDTH 16.4 % (11.5-14.5); RED BLOOD CELL CT 3.22 /CUMM (4.70-6.10); WHITE BLOOD CELL COUNT 14.9 /CUMM (4.8-10.8)
[2017-08-13 16:00] VITALS: BP 98/64
[2017-08-13 23:00] VITALS: BP 96/56
[2017-08-14 06:00] LABS: ABSOLUTE BASOPHIL COUNT 0 /CUMM (0.0-0.2); ABSOLUTE EOSINOPHIL COUNT 0.3 /CUMM (0.0-0.7); ABSOLUTE GRANULOCYTE CT 12.3 /CUMM (1.4-6.5); ABSOLUTE LYMPH COUNT 0.9 /CUMM (1.2-3.4); ABSOLUTE MONOCYTE COUNT 0.5 /CUMM (0.10-0.60); BASOPHIL % 0.1 % (0.0-2.0); EOSINOPHIL % 2.1 % (0-5); GRANULOCYTE % 87.8 % (42.2-75.2); HEMATOCRIT 30.7 % (42-52); MEAN CORPUSCULAR HGB 31.8 PG (27.0-31.0); MEAN CORPUSCULAR HGB CONC 32.6 G/DL (33.0-37.0); MEAN CORPUSCULAR VOLUME 97.8 FL (80.0-94.0); MEAN PLATELET VOLUME 10.3 FL (7.4-10.4); PLATELET COUNT 229 /CUMM (130-400); RBC DISTRIBUTION WIDTH 17.1 % (11.5-14.5); RED BLOOD CELL CT 3.14 /CUMM (4.70-6.10)
--- NOTE | 2017-08-14 07:49 | PN- Resident CRCU ---
Subjective HPI/CRCU Issues: Vitals: T-max 98.7, heart rate between 77 and 101, RR 20 and 34,BP manual between 96/56 and 110/56. Saturating 92% on high flow nasal cannula at 50% FiO2 Accu-Chek 101, 156, 151, 128. Total in 29,295. Total out 31,835 In the last 8 hours he has had 590 cc of urinary output. He is running a heparin drip through a midline White count 14.0, hemoglobin 10.0, hematocrit 30.7, MCV 97.8. Platelet 229. The BEP shows sodium 148, potassium 4.8, chloride 111, bicarb 35, BUN 53, creatinine 1.5 He has O G-tube in place. He is undergoing a NOELLE this a.m. Micro: Blood culture 2 done yesterday no growth to date CSF culture from August 06 no growth to date Strep and Legionella antigen negative on admission Negative flu on admission No overnight events. Patient has no complaints this a.m. 24 Hour Events: No acute overnight events. Pt had no complaints this AM. He was on fi flow nasal canula at 45L/min at 50% FiO2. He seems to have a diffuse rash noted on his abdomen and his back. He denies any pruritis or pain. Objective Vital Signs & I&O Last 8 Hrs of Vitals and I&O: Intake & Output 08/14 1600 Intake Total 214 Output Total 1900 Balance -1686 Intake, IV 54 Intake, Tube 160 Irrigant Number 0 Bowel Movements Output, Urine 1900 Exam General Appearance: well developed/nourished, no apparent distress, awake Head: atraumatic, normal appearance Ears, Nose, Throat: normal pharynx Respiratory: decreased breath sounds on the l. side Cardiovascular: regular rate/rhythm Gastrointestinal: soft, non-tender Skin: rash, erythematous and over back, abdomen and thighs. he has multiple excorications on legs. l. leg is more erythematous than right. Weaning Parameters NIF: 333 Minute Volume: 10.0 Resp rate: 20 Vt: 555 Heart Rate: 95 Weaning Schedule Start Time: 0955 Minute Volume: 7.05 Resp Rate: 25 Vt: 300 Heart Rate: 97 End Time: 1155 Minute Volume: 7.93 Resp Rate: 19 Vt: 410 Heart Rate: 95 Start Time: 1250 Current Medications: Current Medications Sig/Richard Start time Last Medication Dose Route Stop Time Status Admin Albuterol Sulfate 3 ML EVERY 4 HRS/AWAKE 08/14 2000 AC 08/22 INH 1142 Aspirin 81 MG DAILY 08/17 1000 AC 08/22 PO 0913 Atorvastatin Calcium 80 MG 1700 08/16 1730 AC 08/21 PO 1638 Carvedilol 25 MG BID 08/11 1245 AC 08/22 PO 0913 Chlorhexidine 10 ML TID 08/21 1814 AC 08/22 Gluconate PO 0913 Diphenhydramine HCl 1 CYN DAILY 08/10 2300 DC 08/21 TOP 0754 Docusate Sodium 100 MG DAILY NEEDED PRN 08/11 1230 AC PO Glycerin 2 SPRAY Q2P PRN 08/11 0215 AC 08/20 PO 1841 Heparin Sodium 5,000 UNIT .STK-MED ONE 08/21 2301 DC (Porcine) IV 08/21 2302 Heparin Sodium 3,600 UNIT BOLUS ONE 08/21 2300 DC 08/21 (Porcine) IV 08/21 2301 2355 Heparin Sodium/ 25,000 UNIT Q24H 08/16 1045 AC 08/21 Dextrose IV 2113 Dextrose/Water 500 ML Loratadine 10 MG DAILY 08/21 1813 AC 08/22 PO 0913 Pantoprazole Sodium 40 MG DAILY 08/15 1000 AC 08/22 IV 0914 Potassium Chloride 40 MEQ DAILY 08/16 1000 AC 08/22 PO 0914 Senna/Docusate Sodium 1 TAB BID PRN 08/11 1504 AC 08/18 PO 1009 Sodium Chloride 2 SPRAY Q4P PRN 08/18 1000 AC WENDI Impression/Plan Impression/Problem List Impression: This is a 72 yo male with PMH of CHF, HTN, per family he had an MS and had a stent placement at [facility] about 7 years ago, prev hx of syncope who comes in for CC AMS after being found down for unknown duration. He was found to be in a.fib RVR up to 200, he was confused and agitated. In ED multiple pushes of Lopressor and cardizem drip failed to adequately control his HR and he became hypotensive with systolic in 80s and even more confused. After cardiology evaluation decision was made to cardiovert pt for hemodynamic instability. First cardioversion with 50 J unsuccessful, second cardioversion with 70 J successful and pt went into NSR with rate 80-90s. He has since been intubated for respiratory distress and extubated on 08/12. His mental status has improved since admission but he continues to be altered with very slurred speech and inability to move l. side extremeties. Day of Admission: Aug PLAN: Respiratory: Hypoxic respiratory failure: Was intubated on 08/08/17 for airway protection and increasing oxygen requirements and was extubated on 08/12/2017. This AM he was hypoxic down to low 80s. Placed him on facemask. He is now saturating well. CAT scan is suggestive of Multifocal PNA vs worsening edema. Today his cxr showed complete collapse of his right lung with white out. * Continue to diurese but dropped IV lasix from 40 BID to PO 40 daily. * ABG if necessary * Will start ceftaz/vanco to treat for hospital acquired pneumonia at this time. 08/13/2017 * Monitor set of blood cultures and sputum obtained before administration of abx. 08/13/2017 * Mucomyst and chest PT started on 08/13 * Low threshold to intubate. If requires intubation, per Dr. Cisneros administer propofol, and intubate with an 8 . Administer aggressive chest PT and mucomyst. He may require bronch if his respiratory status worsens. ID: Left leg Cellulitis: Recent erythema noted, improved swelling. Initially given two doses of vancomycin and has completed a seven-day course of IV ceftriaxone. WBC trending upwards today again but more suspicious of a pulm source of infection. However his l ext is still erythematous. * Con't monitor * Starting ceftaz/vanco on pt for different source but con't monitor. Cardio: AFIB RVR: S/P synch cardioversion on admission due to hemodynamic instability with hypotension and worsening mental status. On admission EKG showed rate 190, irregularly irregular rhythm, evidence of RBBB and L fascicular block. TFT WNL. Initially on cardizem drip and gradually tapered off. Currently pt is NSR with frequent PAC. Chadvasc2 score= 5, with HAS-BLED score of 3 * Monitor on tele * Heparin drip started, bridged and then transitioned to Coumadin on 08/13/2017 * Coreg 20mg po BID * IV Cardizem drip dc 08/06/17 * Follow up NOELLE done today. Elevated Troponin/CAD: Resolved. First trop 1.71, then peaked at 1.98. EKG on admission showed a.fib RVR. THought to be secondary to demand due to tachycardia and less likely plaque rupture. RESOLVED. Initially treated with heparin. * ASA 162 CHF: ECHO- Low normal EF of 50% with inferoapical and apical hypokinesis. Large apical thrombus. Moderate left ventricular hypertrophy. Moderate left atrial enlargement. Mild mitral regurgitation. Mild tricuspid regurgitation. Mild pulmonary hypertension. Small pericardial effusion. Pt has significant LE edema, and cxr with evidence of volume overload. BNP 4650, no previous value. Pt is desatting today. Unsure if this is multifocal PNA vs heart failure. * Beta dikc scheduled as above. * Appreciate cardio recs * Strict I/O * Almanza placed * Con't almanza Heme/onc: Left upper extremity swelling * Improving * Elevate arm, apply cold compressions * ultrasound ruled out DVT Thrombocytopenia: Improving. 4t SCORE = 4 intermediate probability. Hit antibody 0.162, which is indeterminate. Serotonin assay negative Metabolic: Lactic acidosis: RESOLVED. Elevated Phos: Con't monitor. GFR seems stable. Pt has been getting diuretic with excellent output. * Consider phos binding agent if continue to trend upwards. Hypernatremia: Likely due to diuresis * Decreased lasix from BID to daily. * Con't water flushes as is Alimentary: Transamanitis: Pt has improving transamanitis but also had elevated t.bili, low plt and elevated INR on admission. Pt has unknown hx etoh consumption. DDX: etoh, drug induced, and hepatic congestion. CAT scan not suggestive of hepatic cirrhosis.UTOX negative. He recieved Hi-dose thiamine q8 for 3 doses. * Con't monitor LFT Tube feeds: rate increased to 80 Nephro: Chronic vs Acute Renal Failure: On admission Cr 1.8 with BUN 61 Historically Cr between 1.1-2.3. Today Cr 1.5. Seems to be his stable baseline. He is gettin water flushes via TF. Cryo shows low C3 and C4. He also high alpha 1 globulin. Communicated with nephro will address cryos tomorrow. * Cont monitor * avoid nepro toxins * Nephro will see prn Neuro: AMS: Slowly Improving now obeying simple commands and opening his eyes spontaneously and responding. DDX at this time: Cerebral edema, stroke, medication use cannot be ruled out as we are still unclear at to what medications he took prior to admission. Work up so far shows: Urine culture showed no growth, blood cultures showed no growth, urine antigens negative for strep pneumo and Legionella, CSF culture and Gram stain negative. HSV PCR /HIV neg Low complement levels, will follow-up cryoglobulin (hep C negative) Acetaminophen/salicycylates levels within normal. CT head 3 showed no acute intracranial pathology, midline shift or hemorrhage. CT abdomen and pelvis showed sigmoid diverticulosis without evidence of diverticulitis. EEG done 08/06 revealed diffuse generalized slowing to delta range rhythms. The average amplitude is very low in the 5-10 microvolt range. Suggestive of diffuse cerebral dysfunction and a non-specific encephalopathy. LP done 08/06/17 not significant for infection * ID and neurology consult appreciated. Will follow recommendations * Neuro check * NPO * Appreciate neuro recs * CAT scan today * Avoid all sedating medication * Consider repeat EEG DVT: Coumadin full code guarded prognosis Consults: Critical care Cardiology Infectious disease Nephrology Things to follow: cxr cat scan of head Continue gentle monitor and replete electrolytes PT/OT when able Only speak to: Son Jose Pike [phone] TRY HIM FIRST Brother Itz Pike [phone] Winifred ([facility]) no one else should visit the patient or given any updates/information has estranged brother Kimberly Pike who should not be allowed to visit or given any information Problem List: 1. Altered mental state 2. Acute respiratory failure 3. Hypotension 4. Elevated troponin 5. Rapid atrial fibrillation Pain Ratin Tomorrow's Labs & Rationales: icu cbc Plan DVT/Prophylaxis: pharmacological
[2017-08-14 08:00] VITALS: BP 112/60
--- NOTE | 2017-08-14 10:07 | PN- Infect Dx ---
Subjective Subjective: Afebrile without complaints. His respiratory status deteriorated yesterday, now on high flow oxygen, but he denies any cough or chest pain. He has developed a macular, nonpruritic rash, which was first noted on his back yesterday morning. Objective Last 24 Hrs of Vital Signs/I&O Vital Signs Date Time Temp Pulse Resp B/P B/P Pulse O2 O2 Flow FiO2 Mean Ox Delivery Rate 08/14 0400 94 Nasal 50% Cannula 08/14 0106 98 Nasal 50% Cannula 08/14 0000 95 Nasal 50% Cannula 08/13 2335 96 Nasal 50% Cannula 08/13 2300 97.7 86 34 96/56 95 Nasal 50% Cannula 08/13 2233 89 29 106/55 08/13 2157 96 Nasal 50% Cannula 08/13 2000 95 Nasal 50% Cannula 08/13 1600 98 Nasal 80% Cannula 08/13 1600 98.5 92 24 98/64 98 Nasal 80% Cannula 08/13 1415 96 Nasal 80% Cannula 08/13 1200 97 Non 100% ReBreather Intake & Output 08/14 1600 08/14 0800 08/14 0000 Intake Total 0 891 Output Total 590 600 Balance -590 291 Intake, IV 0 250 Intake, Oral 0 Intake, Tube 491 Feeding Intake, Tube 150 Irrigant Number 0 0 Bowel Movements Output, Urine 590 600 Physical Exam Other Physical Findings: He is awake and alert on high flow oxygen in no acute distress Skin macular rash on the extremities and trunk Lungs scattered rhonchi bilaterally Heart regular rhythm with no murmur Abdomen is soft, nontender with positive bowel sounds Extremities 1+ edema both lower extremities, with no change in the scattered necrotic lesions Eason catheter remains in place Results Last 24 Hours of Lab Results: Laboratory Tests 08/14 08/14 08/13 0957 0421 1700 Chemistry Sodium (137 - 145 mmol/L) 148 H Potassium (3.5 - 5.1 mmol/L) 4.8 Chloride (98 - 107 mmol/L) 111 H Carbon Dioxide (22 - 30 mmol/L) 35 H Anion Gap (5 - 16) 2 L BUN (9 - 20 mg/dL) 53 H Creatinine (0.7 - 1.2 mg/dL) 1.5 H Estimated GFR (>60 ml/min) 46 L Glucose (65 - 99 mg/dL) 90 Calcium (8.4 - 10.2 mg/dL) 8.6 Phosphorus (2.5 - 4.5 mg/dL) 4.4 Magnesium (1.6 - 2.3 mg/dL) 1.8 Total Bilirubin (0.2 - 1.3 mg/dL) 1.2 AST (17 - 59 U/L) 153 H ALT (21 - 72 U/L) 100 H Albumin (3.5 - 5.0 g/dL) 1.9 L Coagulation PT Pending INR Pending APTT Cancelled Hematology CBC w Diff MAN DIFF ORDERED WBC (4.8 - 10.8 /CUMM) 14.0 H RBC (4.70 - 6.10 /CUMM) 3.14 L Hgb (14.0 - 18.0 G/DL) 10.0 L Hct (42 - 52 %) 30.7 L MCV (80.0 - 94.0 FL) 97.8 H MCH (27.0 - 31.0 PG) 31.8 H MCHC (33.0 - 37.0 G/DL) 32.6 L RDW (11.5 - 14.5 %) 17.1 H Plt Count (130 - 400 /CUMM) 229 MPV (7.4 - 10.4 FL) 10.3 Gran % (42.2 - 75.2 %) 87.8 H Lymphocytes % (20.5 - 51.1 %) 6.5 L Monocytes % (1.7 - 9.3 %) 3.5 Eosinophils % (0 - 5 %) 2.1 Basophils % (0.0 - 2.0 %) 0.1 Absolute Granulocytes (1.4 - 6.5 /CUMM) 12.3 H Segmented Neutrophils (42.2 - 75.2 %) 82 H Band Neutrophils (0.0 - 5.0 %) 10 H Absolute Lymphocytes (1.2 - 3.4 /CUMM) 0.9 L Lymphocytes (20.5 - 51.1 %) 3 L Monocytes (1.7 - 9.3 %) 4 Absolute Monocytes (0.10 - 0.60 /CUMM) 0.5 Eosinophils (0 - 5.0 %) 1 Absolute Eosinophils (0.0 - 0.7 /CUMM) 0.3 Absolute Basophils (0.0 - 0.2 /CUMM) 0 Platelet Estimate (ADEQUATE) ADEQUATE Normocytic RBCs VERIFIED Normochromic RBCs VERIFIED 08/13 08/13 1451 1344 Chemistry Sodium (137 - 145 mmol/L) 148 H Potassium (3.5 - 5.1 mmol/L) 4.9 Chloride (98 - 107 mmol/L) 107 Carbon Dioxide (22 - 30 mmol/L) 35 H Anion Gap (5 - 16) 6 BUN (9 - 20 mg/dL) 51 H Creatinine (0.7 - 1.2 mg/dL) 1.5 H Estimated GFR (>60 ml/min) 46 L Glucose (65 - 99 mg/dL) 111 H Calcium (8.4 - 10.2 mg/dL) 8.6 Phosphorus (2.5 - 4.5 mg/dL) 5.1 H Magnesium (1.6 - 2.3 mg/dL) 1.7 Total Bilirubin (0.2 - 1.3 mg/dL) 1.4 H AST (17 - 59 U/L) 123 H ALT (21 - 72 U/L) 87 H Ammonia Cancelled Albumin (3.5 - 5.0 g/dL) 2.0 L Hematology CBC w Diff MAN DIFF ORDERED WBC (4.8 - 10.8 /CUMM) 14.9 H RBC (4.70 - 6.10 /CUMM) 3.22 L Hgb (14.0 - 18.0 G/DL) 10.3 L Hct (42 - 52 %) 31.0 L MCV (80.0 - 94.0 FL) 96.1 H MCH (27.0 - 31.0 PG) 31.8 H MCHC (33.0 - 37.0 G/DL) 33.1 RDW (11.5 - 14.5 %) 16.4 H Plt Count (130 - 400 /CUMM) 212 MPV (7.4 - 10.4 FL) 10.9 H Gran % (42.2 - 75.2 %) 90.0 H Lymphocytes % (20.5 - 51.1 %) 7.4 L Monocytes % (1.7 - 9.3 %) 2.5 Eosinophils % (0 - 5 %) 0.1 Basophils % (0.0 - 2.0 %) 0 Absolute Granulocytes (1.4 - 6.5 /CUMM) 13.4 H Absolute Lymphocytes (1.2 - 3.4 /CUMM) 1.1 L Absolute Monocytes (0.10 - 0.60 /CUMM) 0.4 Absolute Eosinophils (0.0 - 0.7 /CUMM) 0 Absolute Basophils (0.0 - 0.2 /CUMM) 0 Platelet Estimate (ADEQUATE) VERIFIED BY SMEAR Polychromasia 1+ Poikilocytosis 1+ Anisocytosis 1+ Ovalocytes 1+ Serology Lyme Disease Antibody Pending Last 24 Hours of Zackery Results: Blood cultures 2 August 13 negative Recent Imaging Studies: Chest x-ray August 13 reveals an increased opacity at the left mid to lower lung and at the right base Assessment/Plan ID Impression: Deterioration in his respiratory status yesterday after extubation on the previous day, with increased densities on his chest x-ray, possibly secondary to aspiration pneumonia, with temperatures remaining normal but with an increase in his white blood cell count, versus CHF, though he has already diuresed a significant amount. He was begun empirically on Vancomycin and Ceftazidime, which can be continued for now though, unfortunately, no sputum is able to be obtained. The etiology of his rash is unclear but, as it is nonpruritic, he should not require any immediate change in any of his medications. His left hemiparesis suggests a possible CVA and further evaluation may be warranted. Suggestion: 1. Nasal swab for MRSA 2. Reevaluate all of his medications 3. Consider repeat CT of the head 4. Further management of his fluid status per Renal/Cardiology 5. Continue Vancomycin and Ceftazidime pending above
--- NOTE | 2017-08-14 10:51 | PN- CRCU ---
Subjective HPI/Critical Care Issues: Afebrile without complaints. His respiratory status deteriorated yesterday, now on high flow oxygen, but he denies any cough or chest pain. He has developed a macular, nonpruritic rash, which was first noted on his back yesterday morning. Objective Current Medications: Current Medications Sig/Richard Start time Last Medication Dose Route Stop Time Status Admin Acetylcysteine 2 ML BID 08/13 2200 AC 08/14 INH 0938 Albuterol Sulfate 3 ML BID 08/13 2200 AC 08/14 INH 0938 Albuterol Sulfate 3 ML Q4P PRN 08/04 1330 DC 03 INH 0832 Aspirin 325 MG DAILY 08/13 1000 AC 08/13 PO 0936 Carvedilol 25 MG BID 08/11 1245 AC 08/13 PO 2233 Ceftazidime 1,000 MG Q12 08/13 2200 AC 08/14 IV 0844 Diphenhydramine HCl 1 CYN DAILY 08/10 2300 AC 08/13 TOP 0837 Docusate Sodium 100 MG DAILY NEEDED PRN 08/11 1230 AC PO Furosemide 40 MG DAILY 08/14 1000 AC 08/14 IV 0844 Furosemide 40 MG BID 08/12 2200 DC 08/13 IV 0837 Glycerin 2 SPRAY Q2P PRN 08/11 0215 AC PO Heparin Sodium/ 25,000 UNIT Q24H 08/08 1500 DC 08/12 Dextrose IV 1700 Dextrose/Water 500 ML Ipratropium [place] 2.5 ML Q4P PRN 08/09 1430 DC INH Lorazepam 2 MG ONE ONE 08/13 1500 CAN IV 08/13 1501 Norepinephrine 4 MG Q24H 08/13 1500 CAN Dextrose/Water 250 ML IV Nystatin 1 CYN BID PRN 08/03 0645 AC 08/08 TOP 0936 Pantoprazole Sodium 40 MG DAILY 08/03 1000 AC 08/14 IV 0844 Potassium Chloride 40 MEQ BID 08/10 1300 AC 08/13 PO 2233 Senna/Docusate Sodium 1 TAB BID PRN 08/11 1504 AC PO Vancomycin HCl 1,000 MG 2030 08/14 2030 AC Dextrose/Water 250 ML IV Vancomycin HCl 1,000 MG DAILY 08/13 1800 DC 08/13 Dextrose/Water 250 ML IV 202 Warfarin Sodium 2.5 MG COUMADIN 1700 ONE 08/13 1700 DC 08/13 PO 08/13 1701 1614 Vital Signs & I&O Last 24 Hrs of Vitals and I&O: Vital Signs Date Time Temp Pulse Resp B/P B/P Pulse O2 O2 Flow FiO2 Mean Ox Delivery Rate 08/14 0800 95 Nasal 50% Cannula 08/14 0800 98.2 85 22 112/60 95 Nasal 50% Cannula 08/14 0400 94 Nasal 50% Cannula 08/14 0106 98 Nasal 50% Cannula 08/14 0000 95 Nasal 50% Cannula 08/13 2335 96 Nasal 50% Cannula 08/13 2300 97.7 86 34 96/56 95 Nasal 50% Cannula 08/13 2233 89 29 106/55 08/13 2157 96 Nasal 50% Cannula 08/13 2000 95 Nasal 50% Cannula 08/13 1600 98 Nasal 80% Cannula 08/13 1600 98.5 92 24 98/64 98 Nasal 80% Cannula 08/13 1415 96 Nasal 80% Cannula 08/13 1200 97 Non 100% ReBreather Intake & Output 08/14 1600 08/14 0800 08/14 0000 Intake Total 0 891 Output Total 590 600 Balance -590 291 Intake, IV 0 250 Intake, Oral 0 Intake, Tube 491 Feeding Intake, Tube 150 Irrigant Number 0 0 Bowel Movements Output, Urine 590 600 Laboratory Tests 08/14 08/14 08/13 0957 0421 1700 Chemistry Sodium (137 - 145 mmol/L) 148 H Potassium (3.5 - 5.1 mmol/L) 4.8 Chloride (98 - 107 mmol/L) 111 H Carbon Dioxide (22 - 30 mmol/L) 35 H Anion Gap (5 - 16) 2 L BUN (9 - 20 mg/dL) 53 H Creatinine (0.7 - 1.2 mg/dL) 1.5 H Estimated GFR (>60 ml/min) 46 L Glucose (65 - 99 mg/dL) 90 Calcium (8.4 - 10.2 mg/dL) 8.6 Phosphorus (2.5 - 4.5 mg/dL) 4.4 Magnesium (1.6 - 2.3 mg/dL) 1.8 Total Bilirubin (0.2 - 1.3 mg/dL) 1.2 AST (17 - 59 U/L) 153 H ALT (21 - 72 U/L) 100 H Albumin (3.5 - 5.0 g/dL) 1.9 L Coagulation PT Pending INR Pending APTT Cancelled Hematology CBC w Diff MAN DIFF ORDERED WBC (4.8 - 10.8 /CUMM) 14.0 H RBC (4.70 - 6.10 /CUMM) 3.14 L Hgb (14.0 - 18.0 G/DL) 10.0 L Hct (42 - 52 %) 30.7 L MCV (80.0 - 94.0 FL) 97.8 H MCH (27.0 - 31.0 PG) 31.8 H MCHC (33.0 - 37.0 G/DL) 32.6 L RDW (11.5 - 14.5 %) 17.1 H Plt Count (130 - 400 /CUMM) 229 MPV (7.4 - 10.4 FL) 10.3 Gran % (42.2 - 75.2 %) 87.8 H Lymphocytes % (20.5 - 51.1 %) 6.5 L Monocytes % (1.7 - 9.3 %) 3.5 Eosinophils % (0 - 5 %) 2.1 Basophils % (0.0 - 2.0 %) 0.1 Absolute Granulocytes (1.4 - 6.5 /CUMM) 12.3 H Segmented Neutrophils (42.2 - 75.2 %) 82 H Band Neutrophils (0.0 - 5.0 %) 10 H Absolute Lymphocytes (1.2 - 3.4 /CUMM) 0.9 L Lymphocytes (20.5 - 51.1 %) 3 L Monocytes (1.7 - 9.3 %) 4 Absolute Monocytes (0.10 - 0.60 /CUMM) 0.5 Eosinophils (0 - 5.0 %) 1 Absolute Eosinophils (0.0 - 0.7 /CUMM) 0.3 Absolute Basophils (0.0 - 0.2 /CUMM) 0 Platelet Estimate (ADEQUATE) ADEQUATE Normocytic RBCs VERIFIED Normochromic RBCs VERIFIED 08/13 08/13 1451 1344 Chemistry Sodium (137 - 145 mmol/L) 148 H Potassium (3.5 - 5.1 mmol/L) 4.9 Chloride (98 - 107 mmol/L) 107 Carbon Dioxide (22 - 30 mmol/L) 35 H Anion Gap (5 - 16) 6 BUN (9 - 20 mg/dL) 51 H Creatinine (0.7 - 1.2 mg/dL) 1.5 H Estimated GFR (>60 ml/min) 46 L Glucose (65 - 99 mg/dL) 111 H Calcium (8.4 - 10.2 mg/dL) 8.6 Phosphorus (2.5 - 4.5 mg/dL) 5.1 H Magnesium (1.6 - 2.3 mg/dL) 1.7 Total Bilirubin (0.2 - 1.3 mg/dL) 1.4 H AST (17 - 59 U/L) 123 H ALT (21 - 72 U/L) 87 H Ammonia Cancelled Albumin (3.5 - 5.0 g/dL) 2.0 L Hematology CBC w Diff MAN DIFF ORDERED WBC (4.8 - 10.8 /CUMM) 14.9 H RBC (4.70 - 6.10 /CUMM) 3.22 L Hgb (14.0 - 18.0 G/DL) 10.3 L Hct (42 - 52 %) 31.0 L MCV (80.0 - 94.0 FL) 96.1 H MCH (27.0 - 31.0 PG) 31.8 H MCHC (33.0 - 37.0 G/DL) 33.1 RDW (11.5 - 14.5 %) 16.4 H Plt Count (130 - 400 /CUMM) 212 MPV (7.4 - 10.4 FL) 10.9 H Gran % (42.2 - 75.2 %) 90.0 H Lymphocytes % (20.5 - 51.1 %) 7.4 L Monocytes % (1.7 - 9.3 %) 2.5 Eosinophils % (0 - 5 %) 0.1 Basophils % (0.0 - 2.0 %) 0 Absolute Granulocytes (1.4 - 6.5 /CUMM) 13.4 H Absolute Lymphocytes (1.2 - 3.4 /CUMM) 1.1 L Absolute Monocytes (0.10 - 0.60 /CUMM) 0.4 Absolute Eosinophils (0.0 - 0.7 /CUMM) 0 Absolute Basophils (0.0 - 0.2 /CUMM) 0 Platelet Estimate (ADEQUATE) VERIFIED BY SMEAR Polychromasia 1+ Poikilocytosis 1+ Anisocytosis 1+ Ovalocytes 1+ Serology Lyme Disease Antibody Pending 08/13 08/13 08/12 0505 0509 2220 Chemistry Sodium (137 - 145 mmol/L) 149 H Potassium (3.5 - 5.1 mmol/L) 4.9 Chloride (98 - 107 mmol/L) 107 Carbon Dioxide (22 - 30 mmol/L) 35 H Anion Gap (5 - 16) 8 BUN (9 - 20 mg/dL) 47 H Creatinine (0.7 - 1.2 mg/dL) 1.5 H Estimated GFR (>60 ml/min) 46 L Glucose (65 - 99 mg/dL) 128 H Calcium (8.4 - 10.2 mg/dL) 8.4 Phosphorus (2.5 - 4.5 mg/dL) 4.9 H Magnesium (1.6 - 2.3 mg/dL) 1.7 Total Bilirubin (0.2 - 1.3 mg/dL) 1.3 AST (17 - 59 U/L) 125 H ALT (21 - 72 U/L) 94 H Albumin (3.5 - 5.0 g/dL) 2.0 L Coagulation PT (9.4 - 12.5 SEC) 27.0 H INR (0.90 - 1.17) 2.45 H APTT (25 - 37 SEC) Cancelled 73 H 115 *H Hematology CBC w Diff NO MAN DIFF REQ WBC (4.8 - 10.8 /CUMM) 13.6 H RBC (4.70 - 6.10 /CUMM) 3.29 L Hgb (14.0 - 18.0 G/DL) 10.6 L Hct (42 - 52 %) 31.7 L MCV (80.0 - 94.0 FL) 96.3 H MCH (27.0 - 31.0 PG) 32.1 H MCHC (33.0 - 37.0 G/DL) 33.4 RDW (11.5 - 14.5 %) 16.8 H Plt Count (130 - 400 /CUMM) 211 MPV (7.4 - 10.4 FL) 9.8 Gran % (42.2 - 75.2 %) 91.2 H Lymphocytes % (20.5 - 51.1 %) 6.9 L Monocytes % (1.7 - 9.3 %) 1.8 Eosinophils % (0 - 5 %) 0.1 Basophils % (0.0 - 2.0 %) 0 Absolute Granulocytes (1.4 - 6.5 /CUMM) 12.4 H Absolute Lymphocytes (1.2 - 3.4 /CUMM) 0.9 L Absolute Monocytes (0.10 - 0.60 /CUMM) 0.3 Absolute Eosinophils (0.0 - 0.7 /CUMM) 0 Absolute Basophils (0.0 - 0.2 /CUMM) 0 08/12 08/12 1335 1335 Blood Gas pH (7.35 - 7.45 PH) 7.53 H Cancelled pCO2 (35 - 45 TORR) 37 Cancelled pO2 (80 - 100 TORR) 109 H Cancelled HCO3 (21 - 28 MEQ/L) 30 H Cancelled ABG O2 Sat (Measured) (>96.0 %) 98.0 Cancelled P-50 (Temp Corrected) YES Cancelled Carboxyhemoglobin (1.5 - 5.0 %) 0.3 L Cancelled O2 Concentration % 35% Cancelled Temperature (97.0 - 100.0 FARH) 98.8 Cancelled O2 Delivery Method VENT Cancelled Vent Mode CPAP Expiratory Pressure (CMH2O/P) 5 Pressure Support (CMH2O/P) 6 Miscellaneous Phlebotomy Draw Site RIGHT RADIAL Cancelled Microbiology Date/Time Procedure - Status Source Growth 08/13 1802 Blood Culture - RECD BLOOD 08/13 1738 Respiratory Culture - COLB LOWER RESP 08/13 1738 Gram Stain - COLB LOWER RESP 08/13 1604 Blood Culture - RECD BLOOD Impression/Plan Impression/Plan Impression/Plan: This is a 72-year-old gentleman with history of diabetes, previous heart failure diastolic, previous syncope, came into the hospital as was brought in from his home as his landlord found him on the floor. (History on admission Patient apparently had had a previous fall in the snow as well.In the emergency room he was noted to have significant atrial fibrillation with tachycardia and he was hypotensive and hemodynamically unstable and had to have emergent cardioversion as his blood pressure was slow and he was unstable. Per history he has been non -compliant and has not seen any physicians in the recent past., Initially pt was conversant but slightly confused and since arriving in the ed he became less responsive and agitated requiring ativan and now appears to be worse with worsening mental status, with no fever (Apparently was lucid when he came in and he did not have any temperature and he was not complaining of a headache). Subsequently he became more confused and had to require large doses of Ativan as he was cardioverted emergently by Dr. Hitchcock). ISSUES * Slow improvement in mental status, now with clinical evidence of stroke with left sided hemiperesis * Worsening resp status yesterday with left sided infiltrate and or effusion due to aspiration and atelectatsis and prob HCAP * PAFIB in sinus s/p electrical cardioversion due to hemodynamic instablility now anticoagulate with heparin and transitioned to warfarin. Pt has an intraventricular clot probably for ines * Resolving Total body fluid overload with edema with bilateral pleural effusion , atelectasis, clinical evidence suggestive of systolic and diastolic heart failure, with resolved congested liver * Type II VA versus Acute coronary syndrome followed by cardio * Chronic kidney disease with acute renal insufficiency, appears to be improving * No DVT/ No sig arterial ischemia * Previous history of hypertension hyperlipidemia and medical noncompliance * Lower ext chronic venostasis * REsolved thrombocytopenia * Maculopapular rash since yesterday without eosinophilia REC Cont current rx Cxr today REduce fiow as trini Chest pt with mucomyst CT head today Reduce lasix to qd by ng Dose warfarin daily Keep potassium more than 4 and replace down ng tube Ipratropim neb prn Keep mag more than 4 FOr INES today and later on start low dose tube feeding at 20 cc and increase to 40 cc KEep HOB up Periodex oral care swab for MRSA Sputum culture WIll follow
[2017-08-14 11:07] LABS: PT 34.5 SEC (9.4-12.5)
--- NOTE | 2017-08-14 14:39 | PN- Cardiology ---
Subjective Subjective: * Patient has slurred speech and decreased muscle strength on the left side. No specific complaints. * sinus rhythm * chest X-ray suggestive of multifocal pneumonia * No mass in the left ventricle seen on patient's NOELLE suggestive of prior mass being thrombus. Objective Vital Signs and I&Os Vital Signs Date Time Temp Pulse Resp B/P B/P Pulse O2 O2 Flow FiO2 Mean Ox Delivery Rate 08/14 1200 90 Nasal 100% Cannula 08/14 1149 95 110/64 08/14 0938 93 Nasal 50% Cannula 08/14 0800 95 Nasal 50% Cannula 08/14 0800 98.2 85 22 112/60 95 Nasal 50% Cannula 08/14 0400 94 Nasal 50% Cannula 08/14 0106 98 Nasal 50% Cannula 08/14 0000 95 Nasal 50% Cannula 08/13 2335 96 Nasal 50% Cannula 08/13 2300 97.7 86 34 96/56 95 Nasal 50% Cannula 08/13 2233 89 29 106/55 08/13 2157 96 Nasal 50% Cannula 08/13 2000 95 Nasal 50% Cannula 08/13 1600 98 Nasal 80% Cannula 08/13 1600 98.5 92 24 98/64 98 Nasal 80% Cannula Intake & Output 08/14 1600 08/14 0800 08/14 0000 08/13 1600 08/13 0800 08/13 0000 Intake Total 0 891 331 145 338 Output Total 101 507 3915 1800 2600 Balance -590 291 -1069 -1655 -2262 Intake, IV 0 250 191 145 238 Intake, Oral 0 0 0 Intake, Other 100 Intake, Tube 491 Feeding Intake, Tube 150 140 Irrigant Number 0 0 0 0 0 Bowel Movements Output, Urine 414 283 1307 1800 2600 Patient 210 lb Weight Weight Bed scale Measurement Method Physical Exam: General: WD/obese; intubated; alert and responsive Neck: no JVD, no carotid bruit Heart: RRR, no murmur Lungs: clear bilaterally Extremities: 1+ bilateral pedal edema with improved erythema Neuro: decreased movement of left arm and hand Assessment/Plan Assessment/Plan * This patient is extubated and has some difficulty speaking but otherwise appears alert and appropriately responsive. He does have decreased movement of his left arm consistent with a CVA which is certainly a possibility considering his initial presentation in atrial fibrillation. An EEG reportedly showed low voltage. His head CT was negative for a stroke but it is anticipated that that patient may have an MRI. * This patient had a rise in cardiac enzymes consistent with a type 2 MT upon initial presentation. He has no chest discomfort and there are no clear ST segment elevations. Monitor his cardiac enzymes until they peak. He will not be able to tolerate nitrates due to his blood pressure which dropped after receiving NTG by EMS. Rate control will be the most effective means of limiting any myocardial ischemia. Continue aspirin 325mg daily. * Atrial fibrillation. It is unknown how long this patient had been in atrial fibrillation but due to hemodynamic instability he was cardioverted to a sinus rhythm and is hemodynamically improved. The patient had a mass at the apex of the left ventricle but this is no longer seen on his NOELLE indicative of it being a thrombus. Continue anticoagulation. Continue telemetry? Yes
--- NOTE | 2017-08-14 15:08 | RADIOLOGY REPORT ---
EXAMINATION: XR PORTABLE CHEST CLINICAL INFORMATION: Shortness of breath COMPARISON: Multiple prior chest x-rays, the most recent on 08/13/2017 TECHNIQUE: Portable frontal view of the chest was obtained. FINDINGS: There is complete opacification of the left hemithorax with shift of heart and mediastinum toward the left side, representing left lung collapse. Pulmonary opacity in the right middle lobe, can represent atelectasis or pneumonia. No right-sided sizable pleural effusion. No pneumothorax. There is an enteric tube in place, coursing toward the abdomen. IMPRESSION: Complete opacification of left hemithorax represents left lung collapse. Attempt has been made to notify the ordering physician directly.
[2017-08-14 16:00] VITALS: BP 108/52
--- NOTE | 2017-08-14 16:16 | CT SCAN REPORT ---
EXAMINATION: CT HEAD WITHOUT CONTRAST CLINICAL INFORMATION: Slurred speech. Unable to move lower extremities. COMPARISON: 08/02/2017 TECHNIQUE: Contiguous axial imaging was performed from the skull base to vertex without intravenous administration of contrast. DLP: 623 mGy-cm FINDINGS: There is atherosclerotic calcification of cavernous carotid arteries. There is a new, small area of decreased attenuation within the white matter of the right abreu radiata (images 34-35, series 2) without mass effect or hemorrhage. Mild atrophy of cerebral hemispheres with symmetric prominence of ventricles and sulci. The choudhury-white matter differentiation is maintained. No acute findings within the posterior fossa. The calvarium is intact. The mastoid air cells and middle ear cavities are well aerated. There is a mucus retention cyst of the medial wall of the inferior left maxillary sinus. The orbits and temporomandibular joints are unremarkable. IMPRESSION: 1. No acute intracranial hemorrhage. 2. There is evidence of recent infarct involving deep white matter of the right abreu radiata (images 34-35, series 2). Note that the test result was discussed by telephone with Dr. Green at 4:10 pm on 08/14/2017.
--- NOTE | 2017-08-14 19:43 | ECHOCARDIOGRAM REPORT ---
EVELIA GLEASON Age: 72 : Gender: M Exam Date: 08/14/2017 09:57 Exam Location: [facility] Ht (in): 68 Wt (lb): 210 BSA: 2.17 BP: 102 / 54 Ordering Physician: Hesham Lang, Referring Physician: Hesham Lang, Technologist: Alcon Carreno RDCS Room Number: 111 Indications: CARDIAC MASS Rhythm: Sinus Technical Quality: Good Medications TIVA Ease of Transducer Insertion Minor Difficulty Complications None. Technical Difficulty Mild. FINDINGS Left Ventricle Left ventricle of grossly normal size and function. Possible small apical thrombus observed on some views. Right Ventricle Right ventricle is normal in size and function. Right Atrium Normal right atrial size. Left Atrium Mild left atrial dilatation. LA Appendage Possible thrombus in the left atrial appendage. IA Septum Atrial septal aneurysm. No evidence of atrial shunt flow by color Doppler or agitated saline ("bubble") study. Mitral Valve Structurally normal mitral valve. Mild mitral regurgitation. Aortic Valve Structurally normal trileaflet aortic valve. Trace aortic regurgitation. No aortic stenosis. Tricuspid Valve Structurally normal tricuspid valve. Trace tricuspid regurgitation. Pulmonic Valve Pulmonic valve not well visualized, grossly normal. Pericardium Small pericardial effusion. Great Vessels Normal size aortic root. CONCLUSIONS Left ventricle of grossly normal size and function. Possible small apical thrombus observed on some views. Right ventricle is normal in size and function. Normal right atrial size. Mild left atrial dilatation. Possible thrombus in the left atrial appendage. Atrial septal aneurysm. No evidence of atrial shunt flow by color Doppler or agitated saline ("bubble") study. Mild mitral regurgitation. Trace aortic regurgitation. Trace tricuspid regurgitation. Small pericardial effusion. Bernard Leonard M.D. (Electronically Signed) Final Date: 14 August 2017 19:42 MEASUREMENTS (Male / Female) Normal Values
[2017-08-15] VITALS: BP 102/60
[2017-08-15 05:35] LABS: PT 29.4 SEC (9.4-12.5)
[2017-08-15 05:38] LABS: ABSOLUTE BASOPHIL COUNT 0.1 /CUMM (0.0-0.2); ABSOLUTE EOSINOPHIL COUNT 0.3 /CUMM (0.0-0.7); ABSOLUTE GRANULOCYTE CT 6.9 /CUMM (1.4-6.5); ABSOLUTE LYMPH COUNT 0.8 /CUMM (1.2-3.4); ABSOLUTE MONOCYTE COUNT 0.3 /CUMM (0.10-0.60); BASOPHIL % 0.6 % (0.0-2.0); EOSINOPHIL % 3.6 % (0-5); GRANULOCYTE % 82.2 % (42.2-75.2); HEMATOCRIT 31.2 % (42-52); MEAN CORPUSCULAR HGB 31.9 PG (27.0-31.0); MEAN CORPUSCULAR HGB CONC 32.7 G/DL (33.0-37.0); MEAN CORPUSCULAR VOLUME 97.6 FL (80.0-94.0); MEAN PLATELET VOLUME 10.1 FL (7.4-10.4); PLATELET COUNT 227 /CUMM (130-400); RBC DISTRIBUTION WIDTH 17.7 % (11.5-14.5); RED BLOOD CELL CT 3.19 /CUMM (4.70-6.10); WHITE BLOOD CELL COUNT 8.4 /CUMM (4.8-10.8)
--- NOTE | 2017-08-15 07:28 | PN- Resident CRCU ---
Subjective HPI/CRCU Issues: Patient seen and examined. He is seen lying flat in bed resting comfortably maintained on high flow supplemental oxygen in soft restraints. He appears to be in no acute distress. He is rousable to verbal / tactile stimuli and is requesting water. He is AAOx1. Further subjective complaints and review of systems are unobtainable. Objective Vital Signs & I&O Last 8 Hrs of Vitals and I&O: Intake & Output 08/15 1600 Intake Total Output Total Balance Patient 90.775 kg Weight Weight Bed scale Measurement Method Exam General Appearance: awake, comfortable Other Physical Findings: GEN: well developed, obese, elderly man in no acute distress HEENT: NCAT, PERRLA, EOMI, anicteric sclera, MMM; high flow o2 cannula, NGT NECK: Supple, no JVD, trachea midline, no accessory respiratory use CARD: Normal S1/S2 w/o m/g/r; RRR PULM: Decreased left sided breath sounds ABD: Soft, NT, ND, BS+ NEURO: Awake, AAOx1, CN II-XII grossly intact, strength 5/5 x4 EXT: normal pulses, no edema, RLE erthema with wounds in various stages of healing Weaning Parameters NIF: 333 Minute Volume: 10.0 Resp rate: 20 Vt: 555 Heart Rate: 95 Weaning Schedule Start Time: 0955 Minute Volume: 7.05 Resp Rate: 25 Vt: 300 Heart Rate: 97 End Time: 1155 Minute Volume: 7.93 Resp Rate: 19 Vt: 410 Heart Rate: 95 Start Time: 1250 Current Medications: Current Medications Sig/Richard Start time Last Medication Dose Route Stop Time Status Admin Acetylcysteine 2 ML EVERY 4 HRS/AWAKE 08/15 1999 AC 08/15 INH 1147 Acetylcysteine 2 ML BID 08/13 220 DC 08/14 INH 0938 Albuterol Sulfate 3 ML EVERY 4 HRS/AWAKE 08/15 1999 AC 08/15 INH 1147 Albuterol Sulfate 3 ML BID 08/13 2199 DC 08/14 INH 0938 Aspirin 162 MG DAILY 08/15 1000 AC 08/15 PO 0918 Aspirin 325 MG DAILY 08/13 1000 DC 08/14 PO 1149 Carvedilol 25 MG BID 08/11 1245 AC 08/15 PO 0918 Ceftazidime 1,000 MG Q12 08/13 2199 AC 08/15 IV 0917 Diphenhydramine HCl 1 CYN DAILY 08/10 2300 AC 08/15 TOP 0918 Docusate Sodium 100 MG DAILY NEEDED PRN 08/11 1230 AC PO Furosemide 40 MG ONCE ONE 08/15 1245 DC 08/15 IV 08/15 1246 1259 Furosemide 40 MG DAILY 08/15 1000 AC 08/15 PO 0918 Furosemide 40 MG DAILY 08/14 1000 DC 08/14 IV 0844 Glycerin 2 SPRAY Q2P PRN 08/11 0215 AC PO Nystatin 1 CYN BID PRN 08/03 0645 AC 08/08 TOP 0936 Omeprazole 40 MG DAILY AC 08/15 0700 CAN PO Pantoprazole Sodium 40 MG DAILY 08/15 1000 AC 08/15 IV 0917 Pantoprazole Sodium 40 MG DAILY 08/03 1000 DC 08/14 IV 0844 Phytonadione 1 MG ONE ONE 08/15 1015 DC 08/15 SC 08/15 1016 1136 Potassium Chloride 40 MEQ BID 08/10 1300 AC 08/15 PO 0918 Senna/Docusate Sodium 1 TAB BID PRN 08/11 1504 AC PO Vancomycin HCl 1,000 MG 2030 08/14 2030 AC 08/14 Dextrose/Water 250 ML IV 2005 Impression/Plan Impression/Problem List Impression: 72 year old man with multiple medical problems seen for evaluation of progressive worsening altered mental status and "flu-like" symptoms. Patient remains afebrile with improved leukocytosis while on intravenous Vancomycin / Ceftazidime for presumed pneumonia. Cultures remain no growth to date. CT scan demonstrated a new right abreu radiata infarct yesterday most likely cardioembolic in origin. NOELLE demonstrate possible apical thrombus. INR remains therapeutic, however coumadin is to be held and vitamin K given. Chest x -ray appears somewhat clearer today, but with persistence left pleural effusion. He remains on high flow oxygen. He is more awake and alert today and is following commands and is requesting water. Problem List -Altered mental status, possible toxic metabolic encephalopathy -Acute Right abreu radiata infarct, probable cardioembolic -Acute Hypoxic Respiratory Failure -Aspiration Pneumonia -Large Left Pleural Effusion -AFib with RVR, now in NSR s/p emergent cardioversion -Elevated Troponins, Likely demand ischemia -Right lower extremity Cellulitis -Hypernatremia -Transaminitis -Apical Thrombus s/p embolization -History of Congestive heart Failure -Hypertension Plan -Continue ICU admission -High Flow O2, taper as tolerated -NGT / Eason Catheter / -TRC with Nebs/Mucomyst -Aggressive pulmonary toilet/ Chest PT -Hold Coumadin -Vitamin K 1mg SC ONCE -Lasix 40mg IV ONCE -Aspirin 162 mg PO Daily -Vancomycin 1 g IV Daily -Ceftazidime 1 g IV Q12H -Protonix 40 mg IV Daily -Continue meds: Carvedilol, Colace, Senna -Consults with Cardiology, ID, Nephrology, Neurology, Vascular -F/U cultures & Sensitivites; NGTD -F/U MRSA Swab -Daily INR, CBC, CMP -Pain control PRN -NPO, failed swallow eval -DVT PPx with ALPS -FULL CODE Problem List: 1. Altered mental state Pain Ratin Tomorrow's Labs & Rationales: CBC, CMP, INR Plan DVT/Prophylaxis: pharmacological
[2017-08-15 08:00] VITALS: BP 116/60
--- NOTE | 2017-08-15 08:02 | RADIOLOGY REPORT ---
EXAMINATION: XR PORTABLE CHEST CLINICAL INFORMATION: Shortness of breath. High O2 requirements. Complete collapse of right lung in patient recently intubated. COMPARISON: Several prior chest x-rays, most recent of which is dated 08/14/2017. TECHNIQUE: Portable AP semierect view of the chest was obtained. FINDINGS: Enteric tube is seen coursing into the abdomen with tip not included. EKG leads overlie the chest. There is improved aeration now seen in the left mid and upper lung. Patchy opacity is seen in the left midlung. There is continued complete opacification of the left lower lung. Large left-sided pleural effusion is seen. The previously seen left-sided mediastinal shift has resolved. No pneumothorax is noted. The right lung shows low lung volumes and central vascular congestion and linear opacities in the right medial and lower lung base, likely related to subsegmental atelectasis. Bony structures are unremarkable. IMPRESSION: 1. Enteric tube courses into the abdomen with tip not included. 2. Improved aeration in the left lung is seen with resolution of the mediastinal shift to the left side. 3. Persistent large left pneumothorax. 4. Persistent right medial and lower lung base opacities, likely due to atelectasis. 5. Central vascular congestion.
--- NOTE | 2017-08-15 09:46 | PN- CRCU ---
See Addendum Subjective HPI/Critical Care Issues: Events and data reviewed Patient did develop a left lung collapse yesterday and now status post chest physical therapy and seemed to have opened up his lung. Now has developed a large left pleural effusion with medial and lower lung base opacity with atelectasis noted NG tube in place Alert awake and oriented 1. Patient wishes to drink water. Still continues to be at times agitated. Review of symptoms otherwise could not be obtained and continues to have weakness in the left lower extremity and upper extremity. Creatinine stable BUN continues to be elevated potassium is 5.2 anion gap is stable total bilirubin is elevated at 1.5 and the this on the blood work reviewed white count stable at 8.4 hemoglobin stable platelets have improved last ABG reviewed, cultures so far unremarkable Objective Current Medications: Current Medications Sig/Richard Start time Last Medication Dose Route Stop Time Status Admin Acetylcysteine 2 ML EVERY 4 HRS/AWAKE 08/15 1999 AC 08/15 INH 0821 Acetylcysteine 2 ML BID 08/13 2200 DC 08/14 INH 0938 Albuterol Sulfate 3 ML EVERY 4 HRS/AWAKE 08/14 2000 AC 08/15 INH 0821 Albuterol Sulfate 3 ML BID 08/13 2200 DC 08/14 INH 0938 Aspirin 162 MG DAILY 08/15 1000 AC 08/15 PO 0918 Aspirin 325 MG DAILY 08/13 1000 DC 08/14 PO 1149 Carvedilol 25 MG BID 08/11 1245 AC 08/15 PO 0918 Ceftazidime 1,000 MG Q12 08/13 2200 AC 08/15 IV 0917 Diphenhydramine HCl 1 CYN DAILY 08/10 2300 AC 08/15 TOP 0918 Docusate Sodium 100 MG DAILY NEEDED PRN 08/11 1230 AC PO Furosemide 40 MG DAILY 08/15 1000 AC 08/15 PO 0918 Furosemide 40 MG DAILY 08/14 1000 DC 08/14 IV 0844 Glycerin 2 SPRAY Q2P PRN 08/11 0215 AC PO Nystatin 1 CYN BID PRN 08/03 0645 AC 08/08 TOP 0936 Omeprazole 40 MG DAILY AC 08/15 0700 CAN PO Pantoprazole Sodium 40 MG DAILY 08/15 1000 AC 08/15 IV 0917 Pantoprazole Sodium 40 MG DAILY 08/03 1000 DC 08/14 IV 0844 Potassium Chloride 40 MEQ BID 08/10 1300 AC 08/15 PO 0918 Senna/Docusate Sodium 1 TAB BID PRN 08/11 1504 AC PO Vancomycin HCl 1,000 MG 08/14 AC 08/14 Dextrose/Water 250 ML IV 2005 Vital Signs & I&O Last 24 Hrs of Vitals and I&O: Vital Signs Date Time Temp Pulse Resp B/P B/P Pulse O2 O2 Flow FiO2 Mean Ox Delivery Rate 08/15 0400 95 Room Air 08/15 0103 95 Nasal 40% Cannula 08/15 0000 98.3 83 22 102/60 94 Nasal 40% Cannula 08/15 0000 94 Nasal 40% Cannula 08/14 2243 98 100/51 08/14 2000 95 Nasal 45% Cannula 08/14 1959 94 Nasal 45% Cannula 08/14 1600 97 Nasal 50% Cannula 08/14 1600 97.0 80 20 108/52 97 Nasal 50% Cannula 08/14 1200 90 Nasal 100% Cannula 08/14 1149 95 110/64 Intake & Output 08/15 1600 08/15 0800 08/15 0000 Intake Total 625 608 Output Total 700 700 Balance -75 -92 Intake, IV 0 250 Intake, Tube 275 108 Feeding Intake, Tube 350 250 Irrigant Number 0 0 Bowel Movements Output, Urine 700 700 Laboratory Tests 08/15 08/14 0420 0957 Chemistry Sodium (137 - 145 mmol/L) 152 H Potassium (3.5 - 5.1 mmol/L) 5.2 H Chloride (98 - 107 mmol/L) 114 H Carbon Dioxide (22 - 30 mmol/L) 34 H Anion Gap (5 - 16) 4 L BUN (9 - 20 mg/dL) 53 H Creatinine (0.7 - 1.2 mg/dL) 1.5 H Estimated GFR (>60 ml/min) 46 L Glucose (65 - 99 mg/dL) 107 H Serum Osmolality (285 - 295 MOSM/KG) 333 H Calcium (8.4 - 10.2 mg/dL) 8.3 L Phosphorus (2.5 - 4.5 mg/dL) 3.8 Magnesium (1.6 - 2.3 mg/dL) 1.9 Total Bilirubin (0.2 - 1.3 mg/dL) 1.5 H AST (17 - 59 U/L) 110 H ALT (21 - 72 U/L) 96 H Albumin (3.5 - 5.0 g/dL) 1.9 L Coagulation PT (9.4 - 12.5 SEC) 29.4 H 34.5 H INR (0.90 - 1.17) 2.67 H 3.13 H Hematology CBC w Diff NO MAN DIFF REQ WBC (4.8 - 10.8 /CUMM) 8.4 RBC (4.70 - 6.10 /CUMM) 3.19 L Hgb (14.0 - 18.0 G/DL) 10.2 L Hct (42 - 52 %) 31.2 L MCV (80.0 - 94.0 FL) 97.6 H MCH (27.0 - 31.0 PG) 31.9 H MCHC (33.0 - 37.0 G/DL) 32.7 L RDW (11.5 - 14.5 %) 17.7 H Plt Count (130 - 400 /CUMM) 227 MPV (7.4 - 10.4 FL) 10.1 Gran % (42.2 - 75.2 %) 82.2 H Lymphocytes % (20.5 - 51.1 %) 9.8 L Monocytes % (1.7 - 9.3 %) 3.8 Eosinophils % (0 - 5 %) 3.6 Basophils % (0.0 - 2.0 %) 0.6 Absolute Granulocytes (1.4 - 6.5 /CUMM) 6.9 H Absolute Lymphocytes (1.2 - 3.4 /CUMM) 0.8 L Absolute Monocytes (0.10 - 0.60 /CUMM) 0.3 Absolute Eosinophils (0.0 - 0.7 /CUMM) 0.3 Absolute Basophils (0.0 - 0.2 /CUMM) 0.1 08/14 08/13 0421 1700 Chemistry Sodium (137 - 145 mmol/L) 148 H Potassium (3.5 - 5.1 mmol/L) 4.8 Chloride (98 - 107 mmol/L) 111 H Carbon Dioxide (22 - 30 mmol/L) 35 H Anion Gap (5 - 16) 2 L BUN (9 - 20 mg/dL) 53 H Creatinine (0.7 - 1.2 mg/dL) 1.5 H Estimated GFR (>60 ml/min) 46 L Glucose (65 - 99 mg/dL) 90 Calcium (8.4 - 10.2 mg/dL) 8.6 Phosphorus (2.5 - 4.5 mg/dL) 4.4 Magnesium (1.6 - 2.3 mg/dL) 1.8 Total Bilirubin (0.2 - 1.3 mg/dL) 1.2 AST (17 - 59 U/L) 153 H ALT (21 - 72 U/L) 100 H Albumin (3.5 - 5.0 g/dL) 1.9 L Coagulation APTT Cancelled Hematology CBC w Diff MAN DIFF ORDERED WBC (4.8 - 10.8 /CUMM) 14.0 H RBC (4.70 - 6.10 /CUMM) 3.14 L Hgb (14.0 - 18.0 G/DL) 10.0 L Hct (42 - 52 %) 30.7 L MCV (80.0 - 94.0 FL) 97.8 H MCH (27.0 - 31.0 PG) 31.8 H MCHC (33.0 - 37.0 G/DL) 32.6 L RDW (11.5 - 14.5 %) 17.1 H Plt Count (130 - 400 /CUMM) 229 MPV (7.4 - 10.4 FL) 10.3 Gran % (42.2 - 75.2 %) 87.8 H Lymphocytes % (20.5 - 51.1 %) 6.5 L Monocytes % (1.7 - 9.3 %) 3.5 Eosinophils % (0 - 5 %) 2.1 Basophils % (0.0 - 2.0 %) 0.1 Absolute Granulocytes (1.4 - 6.5 /CUMM) 12.3 H Segmented Neutrophils (42.2 - 75.2 %) 82 H Band Neutrophils (0.0 - 5.0 %) 10 H Absolute Lymphocytes (1.2 - 3.4 /CUMM) 0.9 L Lymphocytes (20.5 - 51.1 %) 3 L Monocytes (1.7 - 9.3 %) 4 Absolute Monocytes (0.10 - 0.60 /CUMM) 0.5 Eosinophils (0 - 5.0 %) 1 Absolute Eosinophils (0.0 - 0.7 /CUMM) 0.3 Absolute Basophils (0.0 - 0.2 /CUMM) 0 Platelet Estimate (ADEQUATE) ADEQUATE Normocytic RBCs VERIFIED Normochromic RBCs VERIFIED 08/13 08/13 1451 1344 Chemistry Sodium (137 - 145 mmol/L) 148 H Potassium (3.5 - 5.1 mmol/L) 4.9 Chloride (98 - 107 mmol/L) 107 Carbon Dioxide (22 - 30 mmol/L) 35 H Anion Gap (5 - 16) 6 BUN (9 - 20 mg/dL) 51 H Creatinine (0.7 - 1.2 mg/dL) 1.5 H Estimated GFR (>60 ml/min) 46 L Glucose (65 - 99 mg/dL) 111 H Calcium (8.4 - 10.2 mg/dL) 8.6 Phosphorus (2.5 - 4.5 mg/dL) 5.1 H Magnesium (1.6 - 2.3 mg/dL) 1.7 Total Bilirubin (0.2 - 1.3 mg/dL) 1.4 H AST (17 - 59 U/L) 123 H ALT (21 - 72 U/L) 87 H Ammonia Cancelled Albumin (3.5 - 5.0 g/dL) 2.0 L Hematology CBC w Diff MAN DIFF ORDERED WBC (4.8 - 10.8 /CUMM) 14.9 H RBC (4.70 - 6.10 /CUMM) 3.22 L Hgb (14.0 - 18.0 G/DL) 10.3 L Hct (42 - 52 %) 31.0 L MCV (80.0 - 94.0 FL) 96.1 H MCH (27.0 - 31.0 PG) 31.8 H MCHC (33.0 - 37.0 G/DL) 33.1 RDW (11.5 - 14.5 %) 16.4 H Plt Count (130 - 400 /CUMM) 212 MPV (7.4 - 10.4 FL) 10.9 H Gran % (42.2 - 75.2 %) 90.0 H Lymphocytes % (20.5 - 51.1 %) 7.4 L Monocytes % (1.7 - 9.3 %) 2.5 Eosinophils % (0 - 5 %) 0.1 Basophils % (0.0 - 2.0 %) 0 Absolute Granulocytes (1.4 - 6.5 /CUMM) 13.4 H Absolute Lymphocytes (1.2 - 3.4 /CUMM) 1.1 L Absolute Monocytes (0.10 - 0.60 /CUMM) 0.4 Absolute Eosinophils (0.0 - 0.7 /CUMM) 0 Absolute Basophils (0.0 - 0.2 /CUMM) 0 Platelet Estimate (ADEQUATE) VERIFIED BY SMEAR Polychromasia 1+ Poikilocytosis 1+ Anisocytosis 1+ Ovalocytes 1+ Serology Lyme Disease Antibody Pending Microbiology Date/Time Procedure - Status Source Growth 08/14 1446 Surveillance Culture - RECD UPPER RESP 08/14 1437 Surveillance Culture - COLB UPPER RESP 08/13 1802 Blood Culture - RES BLOOD 08/13 1738 Respiratory Culture - CAN LOWER RESP Cancelled: SPECIMEN NOT RECEIVED IN LABORATORY 08/13 173 Gram Stain - CAN LOWER RESP Cancelled: SPECIMEN NOT RECEIVED IN LABORATORY 08/13 1604 Blood Culture - RES BLOOD Impression/Plan Impression/Plan Impression/Plan: General Appearance: well developed/nourished, no apparent distress, awake, ng in place Picc in place Head: atraumatic, normal appearance Ears, Nose, Throat: normal pharynx Respiratory: decreased breath sounds on the l. side Cardiovascular: regular rate/rhythm Gastrointestinal: soft, non-tender Skin: rash, erythematous and over back, abdomen and thighs. he has multiple excorications on legs. l. leg is more erythematous than right. Left sided hemiperesis This is a 72-year-old gentleman with history of diabetes, previous heart failure diastolic, previous syncope, came into the hospital as was brought in from his home as his landlord found him on the floor. (History on admission Patient apparently had had a previous fall in the snow as well.In the emergency room he was noted to have significant atrial fibrillation with tachycardia and he was hypotensive and hemodynamically unstable and had to have emergent cardioversion as his blood pressure was slow and he was unstable. Per history he has been non -compliant and has not seen any physicians in the recent past., Initially pt was conversant but slightly confused and since arriving in the ed he became less responsive and agitated requiring ativan and now appears to be worse with worsening mental status, with no fever (Apparently was lucid when he came in and he did not have any temperature and he was not complaining of a headache). Subsequently he became more confused and had to require large doses of Ativan as he was cardioverted emergently by Dr. Hitchcock). ISSUES * Slow improvement in mental status, now with stroke with left sided hemiperesis * Left lung collapse due to mucus plug and a large effusion now s/p chest pt with cxr showing improvement and pt has now a large effusion/ Atx vs pna * PAFIB in sinus s/p electrical cardioversion due to hemodynamic instablility was anticoagulated with heparin and transitioned to warfarin. Pt had an intraventricular clot/ now s/p NOELLE showing no further clot * Resolving Total body fluid overload with edema with bilateral pleural effusion , atelectasis, clinical evidence suggestive of systolic and diastolic heart failure, with resolved congested liver * Type II SC versus Acute coronary syndrome followed by cardio * Chronic kidney disease with acute renal insufficiency, appears to be improving * No DVT/ No sig arterial ischemia * Previous history of hypertension hyperlipidemia and medical noncompliance * Lower ext chronic venostasis * REsolved thrombocytopenia * Maculopapular rash since yesterday without eosinophilia REC Lasix 40 mg iv now and repeat Cont current rx, agg chest pt to the left lung Cxr daily Chest pt with mucomyst Hold warfarin and will transition to heparin as pt would need to be tapped for his large effusion if not better with diuresis Keep potassium more than 4 hold potassium dose tonight (today's K is 5.2) Use nebs prn and can use albuterol Keep mag more than 1 2 KEep HOB up Periodex oral care swab for MRSA pending
--- NOTE | 2017-08-15 11:40 | PN- Infect Dx ---
Subjective Subjective: Afebrile. He does not report any complaints but he is limited in his ability to provide any history. Objective Last 24 Hrs of Vital Signs/I&O Vital Signs Date Time Temp Pulse Resp B/P B/P Pulse O2 O2 Flow FiO2 Mean Ox Delivery Rate 08/15 0800 93 Nasal 40% Cannula 08/15 0800 97.6 80 22 116/60 93 Nasal 40% Cannula 08/15 0400 95 Room Air 08/15 0103 95 Nasal 40% Cannula 08/15 0000 98.3 83 22 102/60 94 Nasal 40% Cannula 08/15 0000 94 Nasal 40% Cannula 08/14 2243 98 100/51 08/14 2000 95 Nasal 45% Cannula 08/14 1959 94 Nasal 45% Cannula 08/14 1600 97 Nasal 50% Cannula 08/14 1600 97.0 80 20 108/52 97 Nasal 50% Cannula 08/14 1200 90 Nasal 100% Cannula 08/14 1149 95 110/64 Intake & Output 08/15 1600 08/15 0800 08/15 0000 Intake Total 625 608 Output Total 700 700 Balance -75 -92 Intake, IV 0 250 Intake, Tube 275 108 Feeding Intake, Tube 350 250 Irrigant Number 0 0 Bowel Movements Output, Urine 700 700 Patient 200 lb Weight Weight Bed scale Measurement Method Physical Exam Other Physical Findings: He is awake and alert, on high flow oxygen, in no acute distress Skin nonpruritic macular rash persists on the trunk and extremities Lungs scattered rhonchi Heart regular rhythm with no murmur Extremities PICC in the right upper extremity with no inflammation at the site Eason catheter remains in place Results Last 24 Hours of Lab Results: Laboratory Tests 08/15 0420 Chemistry Sodium (137 - 145 mmol/L) 152 H Potassium (3.5 - 5.1 mmol/L) 5.2 H Chloride (98 - 107 mmol/L) 114 H Carbon Dioxide (22 - 30 mmol/L) 34 H Anion Gap (5 - 16) 4 L BUN (9 - 20 mg/dL) 53 H Creatinine (0.7 - 1.2 mg/dL) 1.5 H Estimated GFR (>60 ml/min) 46 L Glucose (65 - 99 mg/dL) 107 H Serum Osmolality (285 - 295 MOSM/KG) 333 H Calcium (8.4 - 10.2 mg/dL) 8.3 L Phosphorus (2.5 - 4.5 mg/dL) 3.8 Magnesium (1.6 - 2.3 mg/dL) 1.9 Total Bilirubin (0.2 - 1.3 mg/dL) 1.5 H AST (17 - 59 U/L) 110 H ALT (21 - 72 U/L) 96 H Albumin (3.5 - 5.0 g/dL) 1.9 L Coagulation PT (9.4 - 12.5 SEC) 29.4 H INR (0.90 - 1.17) 2.67 H Hematology CBC w Diff NO MAN DIFF REQ WBC (4.8 - 10.8 /CUMM) 8.4 RBC (4.70 - 6.10 /CUMM) 3.19 L Hgb (14.0 - 18.0 G/DL) 10.2 L Hct (42 - 52 %) 31.2 L MCV (80.0 - 94.0 FL) 97.6 H MCH (27.0 - 31.0 PG) 31.9 H MCHC (33.0 - 37.0 G/DL) 32.7 L RDW (11.5 - 14.5 %) 17.7 H Plt Count (130 - 400 /CUMM) 227 MPV (7.4 - 10.4 FL) 10.1 Gran % (42.2 - 75.2 %) 82.2 H Lymphocytes % (20.5 - 51.1 %) 9.8 L Monocytes % (1.7 - 9.3 %) 3.8 Eosinophils % (0 - 5 %) 3.6 Basophils % (0.0 - 2.0 %) 0.6 Absolute Granulocytes (1.4 - 6.5 /CUMM) 6.9 H Absolute Lymphocytes (1.2 - 3.4 /CUMM) 0.8 L Absolute Monocytes (0.10 - 0.60 /CUMM) 0.3 Absolute Eosinophils (0.0 - 0.7 /CUMM) 0.3 Absolute Basophils (0.0 - 0.2 /CUMM) 0.1 Last 24 Hours of Zackery Results: Blood cultures 2 August 13 negative Recent Imaging Studies: Chest x-ray August 15 reveals improved aeration in the left mid and upper lung, with complete opacification of the left lower lung, with a large left-sided pleural effusion Assessment/Plan ID Impression: Improved, with decreased oxygen requirements, though still on high flow oxygen, and with improvement on chest x-ray after yesterday's film revealing complete opacification of the left hemithorax that was felt to represent left lung collapse. The chest x-ray from today does suggest a large left pleural effusion , which may warrant further evaluation if it persists. He continues to diuresis with Lasix, with loss of another 10 pounds compared to 2 days ago. He remains afebrile with white blood cell count now normal on empiric treatment with Vancomycin and Ceftazidime for possible aspiration pneumonia, though suspect that his recent respiratory distress may be noninfectious in etiology. Suggestion: 1. Consider CT of the chest to better evaluate the left pleural effusion 2. Follow-up nasal swab for MRSA 3. Continue aggressive pulmonary toilet 4. Continue diuresis per Pulmonary/Cardiology 5. Continue Vancomycin and Ceftazidime pending above
[2017-08-15 16:00] VITALS: BP 116/56
--- NOTE | 2017-08-15 21:16 | PN- Cardiology ---
Subjective Subjective: * No discerable complaints. Speech is still impaired. decreased range of movement of left upper extremity. * Sinus rhythm with PVC's * creatinine 1.5 * improving hepatic transaminases * improvement in collapsed lung Objective Vital Signs and I&Os Vital Signs Date Time Temp Pulse Resp B/P B/P Pulse O2 O2 Flow FiO2 Mean Ox Delivery Rate 08/15 1707 94 Nasal 40% Cannula 08/15 1600 98 Nasal 40% Cannula 08/15 1600 98.1 95 24 116/56 98 Nasal 40% Cannula 08/15 1200 94 Nasal 40% Cannula 08/15 1148 97 Nasal 40% Cannula 08/15 0820 96 Nasal 40% Cannula 08/15 0800 93 Nasal 40% Cannula 08/15 0800 97.6 80 22 116/60 93 Nasal 40% Cannula 08/15 0400 95 Room Air 08/15 0103 95 Nasal 40% Cannula 08/15 0000 98.3 83 22 102/60 94 Nasal 40% Cannula 08/15 0000 94 Nasal 40% Cannula 08/14 2243 98 100/51 Intake & Output 08/15 1600 08/15 0800 08/15 0000 08/14 1600 08/14 0800 08/14 0000 Intake Total 940 625 608 214 0 891 Output Total 1100 704 559 2612 590 600 Balance -160 -75 -92 -1686 -590 291 Intake, IV 60 0 250 54 0 250 Intake, Oral 0 0 Intake, Tube 480 275 108 491 Feeding Intake, Tube 400 350 250 160 150 Irrigant Number 0 0 0 0 0 Bowel Movements Output, Urine 1100 065 613 9459 590 600 Patient 200 lb Weight Weight Bed scale Measurement Method Physical Exam: General: WD/obese; alert and responsive Neck: no JVD, no carotid bruit Heart: RRR, no murmur Lungs: clear bilaterally Extremities: 1+ bilateral pedal edema with improved erythema Neuro: decreased movement of left arm and hand Assessment/Plan Assessment/Plan * This patient is extubated and has some difficulty speaking but otherwise appears alert and appropriately responsive. He does have decreased movement of his left arm consistent with a CVA which is certainly a possibility considering his initial presentation in atrial fibrillation. An EEG reportedly showed low voltage. His head CT was negative for a stroke but it is anticipated that that patient may have an MRI. * This patient had a rise in cardiac enzymes consistent with a type 2 MS upon initial presentation. He has no chest discomfort and there are no clear ST segment elevations. Monitor his cardiac enzymes until they peak. He will not be able to tolerate nitrates due to his blood pressure which dropped after receiving NTG by EMS. Rate control will be the most effective means of limiting any myocardial ischemia. Continue aspirin 325mg daily. * Atrial fibrillation. It is unknown how long this patient had been in atrial fibrillation but due to hemodynamic instability he was cardioverted to a sinus rhythm and is hemodynamically improved. The patient had a mass at the apex of the left ventricle but this is no longer seen on his NOELLE indicative of it being a thrombus. Continue anticoagulation. Continue telemetry? Yes
[2017-08-16] VITALS: BP 102/56
[2017-08-16 04:28] LABS: ABSOLUTE BASOPHIL COUNT 0.1 /CUMM (0.0-0.2); ABSOLUTE EOSINOPHIL COUNT 0.3 /CUMM (0.0-0.7); ABSOLUTE GRANULOCYTE CT 5.9 /CUMM (1.4-6.5); ABSOLUTE LYMPH COUNT 0.9 /CUMM (1.2-3.4); ABSOLUTE MONOCYTE COUNT 0.2 /CUMM (0.10-0.60); BASOPHIL % 0.7 % (0.0-2.0); EOSINOPHIL % 3.8 % (0-5); GRANULOCYTE % 79.5 % (42.2-75.2); MEAN CORPUSCULAR HGB 32.2 PG (27.0-31.0); MEAN CORPUSCULAR VOLUME 97.6 FL (80.0-94.0); PLATELET COUNT 234 /CUMM (130-400); RBC DISTRIBUTION WIDTH 17.4 % (11.5-14.5); RED BLOOD CELL CT 3.18 /CUMM (4.70-6.10); WHITE BLOOD CELL COUNT 7.4 /CUMM (4.8-10.8)
[2017-08-16 04:32] LABS: PT 20.6 SEC (9.4-12.5)
--- NOTE | 2017-08-16 07:20 | PN- Resident CRCU ---
Caitlyn KOEHLER,Kai 08/16/17 0720: Subjective HPI/CRCU Issues: Patient seen and examined. He is seen lying flat in bed resting comfortably maintained in a zachary and upper extremitiy restraints. Patients is somnolent and lethargic and only minimally arousable to verbal / tactile stimuli. Subjective complaints and review of systems are unobtainable. Objective Vital Signs & I&O Last 8 Hrs of Vitals and I&O: Tele Sinus Tach with PVCs Exam General Appearance: comfortable Other Physical Findings: GEN: well developed, obese, elderly man in no acute distress HEENT: NCAT, PERRLA, EOMI, anicteric sclera, MMM; nasal cannula, NGT NECK: Supple, no JVD, trachea midline, no accessory respiratory use CARD: Normal S1/S2 w/o m/g/r; RRR PULM: Decreased left sided breath sounds ABD: Soft, NT, ND, BS+ NEURO: Awake, AAOx1, CN II-XII grossly intact, strength 5/5 x4 EXT: normal pulses, no edema, RLE erthema with wounds in various stages of healing Weaning Parameters NIF: 333 Minute Volume: 10.0 Resp rate: 20 Vt: 555 Heart Rate: 95 Weaning Schedule Start Time: 0955 Minute Volume: 7.05 Resp Rate: 25 Vt: 300 Heart Rate: 97 End Time: 1155 Minute Volume: 7.93 Resp Rate: 19 Vt: 410 Heart Rate: 95 Start Time: 1250 Current Medications: Current Medications Sig/Richard Start time Last Medication Dose Route Stop Time Status Admin Acetaminophen 650 MG ONCE ONE 08/15 2100 DC 08/15 PO 08/15 2101 2055 Acetylcysteine 2 ML EVERY 4 HRS/AWAKE 08/15 1999 AC 08/16 INH 0814 Albuterol Sulfate 3 ML EVERY 4 HRS/AWAKE 08/15 1999 AC 08/16 INH 0814 Aspirin 162 MG DAILY 08/15 1000 AC 08/15 PO 0918 Carvedilol 25 MG BID 08/11 1245 AC 08/15 PO 2200 Ceftazidime 1,000 MG Q12 08/13 2200 AC 08/15 IV 2200 Cetirizine HCl 10 MG ONCE ONE 08/15 2359 DC 08/15 PO 08/16 0000 2355 Diphenhydramine HCl 1 CYN DAILY 08/10 2300 AC 03/14 TOP 0918 Docusate Sodium 100 MG DAILY NEEDED PRN 08/11 1230 AC PO Furosemide 40 MG ONCE ONE 08/15 1245 DC 08/15 IV 08/15 1246 1259 Furosemide 40 MG DAILY 08/15 1000 AC 08/15 PO 0918 Glycerin 2 SPRAY Q2P PRN 08/11 0215 AC PO Nystatin 1 CYN BID PRN 08/03 0645 AC 08/08 TOP 0936 Pantoprazole Sodium 40 MG DAILY 08/15 1000 AC 08/15 IV 0917 Phytonadione 1 MG ONE ONE 08/15 1015 DC 08/15 SC 08/15 1016 1136 Potassium Chloride 40 MEQ DAILY 08/16 1000 AC PO Potassium Chloride 40 MEQ BID 08/10 1300 DC 08/15 PO 0918 Senna/Docusate Sodium 1 TAB BID PRN 08/11 1504 AC PO Vancomycin HCl 1,000 MG 08/14 AC 08/15 Dextrose/Water 250 ML IV 2054 Impression/Plan Impression/Problem List Impression: 72 year old man with multiple medical problems seen for evaluation of progressive worsening altered mental status and "flu-like" symptoms. Patient continues to remain afebrile without leukocytosis while on broad spectrum antibiotics. MRSA swab is negative for which Vancomycin was discontinued, other cultures remain no growth to date. Vitamin K was given to reverse the INR yesterday and is now sub-therapeutic, Heparin was started for anticoagulation. Chest x-ray demonstrated improving left pleural effusion without change in the parenchymal opacities. He is now saturating well on 3.0L oxygen via nasal cannula. Patient failed swallow evaluation yesterday and will be reassessed. He is to be given two additional doses of lasix sodium and his electrolytes to be assessed tomorow. Neurology was reconsulted for further management of his new CVA for which MARIBEL inhibitor and statin were recommended. BP remains labile but statin was started. PA/Lateral chest x-ray is to be assessed in am, should patient still have a significant effusion a thoracentesis may be pursued. Problem List -Altered mental status, possible toxic metabolic encephalopathy -Acute Right abreu radiata infarct, probable cardioembolic -Acute Hypoxic Respiratory Failure, improving -Aspiration Pneumonia, on Ceftazidime -Large Left Pleural Effusion, improving -AFib with RVR, now in NSR s/p emergent cardioversion -Elevated Troponins, Likely demand ischemia -Right lower extremity Cellulitis -Hypernatremia -Transaminitis -Apical Thrombus s/p embolization -History of Congestive heart Failure -Hypertension Plan -Continue ICU admission -Supplemental O2, taper as tolerated -NGT / Eason Catheter / [place] / BL UE soft restraint -TRC with Nebs/Mucomyst -Aggressive pulmonary toilet/ Chest PT -Heparin GGT -Aspirin 81 mg PO Daily -Vancomycin discontinued -Ceftazidime 1 g IV Q12H -Protonix 40 mg IV Daily -Start Lisinopril as BP allows -Atorvastatin 80 mg PO Daily started -Continue meds: Carvedilol, Colace, Senna -Consults with Cardiology, ID, Nephrology, Neurology, Vascular -F/U cultures & Sensitivites; NGTD -Daily INR, CBC, CMP -Pain control PRN -NPO, failed swallow eval on Tube Feeds -DVT PPx with ALPS -FULL CODE Problem List: 1. Altered mental state Pain Ratin Tomorrow's Labs & Rationales: See assessment Plan DVT/Prophylaxis: pharmacological Amelia KOEHLER,[facility] 08/16/17 1058: Attending MD Review Statement Attending Sign Off Attending Cosign Statement: I have: examined this patient, reviewed aval EMR data, personally reviewd images, discussd w/resident/PA/JUNIOR LINUX SYSTEMS ADMINISTRATOR, discussed mgmt plan w/tate, discussed mgmt plan w/CM, discussed mgmt plan w/pt, agreed w/resident/PA/JUNIOR LINUX SYSTEMS ADMINISTRATOR, amended to note. Other Findings: This is a 72-year-old gentleman with history of diabetes, previous heart failure diastolic, previous syncope, came into the hospital as was brought in from his home as his landlord found him on the floor. (History on admission Patient apparently had had a previous fall in the snow as well.In the emergency room he was noted to have significant atrial fibrillation with tachycardia and he was hypotensive and hemodynamically unstable and had to have emergent cardioversion as his blood pressure was slow and he was unstable. Per history he has been non -compliant and has not seen any physicians in the recent past., Initially pt was conversant but slightly confused and since arriving in the ed he became less responsive and agitated requiring ativan and now appears to be worse with worsening mental status, with no fever (Apparently was lucid when he came in and he did not have any temperature and he was not complaining of a headache). Subsequently he became more confused and had to require large doses of Ativan as he was cardioverted emergently by Dr. Hitchcock). ISSUES * Slow improvement in mental status, now with stroke with left sided hemiperesis * Left lung collapse due to mucus plug and a large effusion now s/p chest pt with cxr showing improvement and pt has now a large effusion/ Atx vs pna * PAFIB in sinus s/p electrical cardioversion due to hemodynamic instablility was anticoagulated with heparin and transitioned to warfarin. Pt had an intraventricular clot/ now s/p NOELLE showing no further clot * Resolving Total body fluid overload with edema with bilateral pleural effusion , atelectasis, clinical evidence suggestive of systolic and diastolic heart failure, with resolved congested liver * Type II ND versus Acute coronary syndrome followed by cardio * Chronic kidney disease with acute renal insufficiency, appears to be improving * No DVT/ No sig arterial ischemia * Previous history of hypertension hyperlipidemia and medical noncompliance * Lower ext chronic venostasis * REsolved thrombocytopenia * Maculopapular rash since yesterday without eosinophilia REC Lasix 40 mg iv now and repeat if trini Cont current rx, agg chest pt to the left lung Cxr daily Chest pt with mucomyst Heparin with no bolus IF inr is less than 1.5 get IR to do thora in am if effusion is large Chest ct in am after the tap (if done) Use nebs prn and can use albuterol Keep mag more than 2 KEep HOB up Periodex oral care tid Swab for MRSA pending Increase free water
[2017-08-16 08:00] VITALS: BP 110/60
--- NOTE | 2017-08-16 08:52 | RADIOLOGY REPORT ---
EXAMINATION: XR PORTABLE CHEST CLINICAL INFORMATION: Assess for interval change in left lobe consolidation/effusion. Possible pneumonia. COMPARISON: Several prior chest x-rays, most recent of which is dated 08/15/2017. TECHNIQUE: Portable AP semierect view of the chest was obtained. FINDINGS: Several EKG leads overlie the chest. Enteric tube courses into the abdomen with tip extending beyond the [id number] of this exam. A right subclavian PICC line is in place with tip in region of the axillary vein, unchanged. The cardiomediastinal silhouette is enlarged. There is decrease in size of left-sided pleural effusion and improved aeration in the left lung. Small left-sided pleural effusion remains. There are persistent bilateral mid and lower lung opacities, denser on the left side than the right. Associated vascular congestion is seen. Bony structures are unremarkable. IMPRESSION: 1. Right-sided PICC line tip is in the axillary region. Please correlate clinically if the tip should be repositioned into the SVC. 2. Enteric tube courses into the abdomen with tip not included. 3. Decrease in left-sided pleural effusion with small left effusion remaining. 4. No significant change in mid and lower lung parenchymal opacities bilaterally, likely related to lung consolidation/pneumonia or atelectasis. Associated central vascular congestion is seen.
--- NOTE | 2017-08-16 11:17 | PN- Infect Dx ---
Subjective Subjective: Afebrile without complaints Objective Last 24 Hrs of Vital Signs/I&O Vital Signs Date Time Temp Pulse Resp B/P B/P Pulse O2 O2 Flow FiO2 Mean Ox Delivery Rate 08/16 0850 80 110/60 08/16 0819 98 Nasal 3.0L Cannula 08/16 0800 100 Nasal 3.0L Cannula 08/16 0800 97.9 87 31 110/60 100 Nasal 3.0L Cannula 08/16 0331 99 Nasal 3.0L Cannula 08/16 0000 97.9 80 19 102/56 97 Nasal 3.0L Cannula 08/16 0000 97 Nasal 3.0L Cannula 08/15 2200 92 120/60 08/15 2117 94 Nasal 35% Cannula 08/15 2000 95 Nasal 35% Cannula 08/15 1707 94 Nasal 40% Cannula 08/15 1600 98 Nasal 40% Cannula 08/15 1600 98.1 95 24 116/56 98 Nasal 40% Cannula 08/15 1200 94 Nasal 40% Cannula 08/15 1148 97 Nasal 40% Cannula Intake & Output 08/16 1600 08/16 0800 08/16 0000 Intake Total 910 1080 Output Total 500 320 Balance 410 760 Intake, IV 0 250 Intake, Oral 0 Intake, Tube 610 560 Feeding Intake, Tube 300 270 Irrigant Number 0 0 Bowel Movements Output, Urine 500 320 Patient 197 lb Weight Weight Bed scale Measurement Method Physical Exam Other Physical Findings: He is lethargic but arousable, with garbled speech, but in no acute distress Skin macular rash persists though less diffuse Lungs bilateral rhonchi Heart regular rhythm with no murmur Extremities decreased erythema and edema of both lower extremities; PICC in the right upper extremity with no inflammation at the site Eason catheter remains in place Results Last 24 Hours of Lab Results: Laboratory Tests 08/16 0320 Chemistry Sodium (137 - 145 mmol/L) 153 H Potassium (3.5 - 5.1 mmol/L) 4.6 Chloride (98 - 107 mmol/L) 114 H Carbon Dioxide (22 - 30 mmol/L) 34 H Anion Gap (5 - 16) 6 BUN (9 - 20 mg/dL) 52 H Creatinine (0.7 - 1.2 mg/dL) 1.5 H Estimated GFR (>60 ml/min) 46 L Glucose (65 - 99 mg/dL) 110 H Calcium (8.4 - 10.2 mg/dL) 8.3 L Phosphorus (2.5 - 4.5 mg/dL) 4.1 Magnesium (1.6 - 2.3 mg/dL) 1.8 Total Bilirubin (0.2 - 1.3 mg/dL) 1.5 H AST (17 - 59 U/L) 78 H ALT (21 - 72 U/L) 91 H Albumin (3.5 - 5.0 g/dL) 1.9 L Coagulation PT (9.4 - 12.5 SEC) 20.6 H INR (0.90 - 1.17) 1.88 H Hematology CBC w Diff NO MAN DIFF REQ WBC (4.8 - 10.8 /CUMM) 7.4 RBC (4.70 - 6.10 /CUMM) 3.18 L Hgb (14.0 - 18.0 G/DL) 10.2 L Hct (42 - 52 %) 31.0 L MCV (80.0 - 94.0 FL) 97.6 H MCH (27.0 - 31.0 PG) 32.2 H MCHC (33.0 - 37.0 G/DL) 33.0 RDW (11.5 - 14.5 %) 17.4 H Plt Count (130 - 400 /CUMM) 234 MPV (7.4 - 10.4 FL) 10.0 Gran % (42.2 - 75.2 %) 79.5 H Lymphocytes % (20.5 - 51.1 %) 12.7 L Monocytes % (1.7 - 9.3 %) 3.3 Eosinophils % (0 - 5 %) 3.8 Basophils % (0.0 - 2.0 %) 0.7 Absolute Granulocytes (1.4 - 6.5 /CUMM) 5.9 Absolute Lymphocytes (1.2 - 3.4 /CUMM) 0.9 L Absolute Monocytes (0.10 - 0.60 /CUMM) 0.2 Absolute Eosinophils (0.0 - 0.7 /CUMM) 0.3 Absolute Basophils (0.0 - 0.2 /CUMM) 0.1 Last 24 Hours of Zackery Results: Blood cultures 2 August 13 negative Nares August 14 negative for MRSA Recent Imaging Studies: Chest x-ray August 16 reveals improved aeration in the left lung with decreased density, with persistent bilateral mid and lower lung opacities Assessment/Plan ID Impression: Overall improved, now on nasal oxygen, with temperatures and white blood cell count normal on empiric treatment with Vancomycin and Ceftazidime, now Day 3 for possible aspiration pneumonia, though suspect that his respiratory distress and abnormalities on his recent chest x-rays were more likely secondary to mucous plugging/atelectasis than aspiration. The negative nasal swab for MRSA is noted and the Vancomycin should be able to be discontinued. Suggestion: 1. Continue aggressive pulmonary toilet 2. Discontinue Vancomycin 3. Continue Ceftazidime
[2017-08-16 12:00] VITALS: BP 110/60
[2017-08-16 16:00] VITALS: BP 102/58
--- NOTE | 2017-08-16 17:03 | PN- Neurology ---
Subjective Subjective: Showing improvement in mental status. Still confused and irritable at times. Per staff illustrates weakness on left side and slurred speech. Repeat NCHCT now revealed a hypodensity within the left abreu radiata south of the motor cortex. Review of Systems: on change. Objective Vital Signs and I&Os Vital Signs Date Time Temp Pulse Resp B/P B/P Pulse O2 O2 Flow FiO2 Mean Ox Delivery Rate 08/16 1645 95 Nasal 2.0L Cannula 08/16 1600 98.0 76 21 102/58 98 Nasal 2.0L Cannula 08/16 1227 98 Nasal 2.0L Cannula 08/16 1200 97 Nasal 2.0L Cannula 08/16 1200 99.1 76 23 110/60 97 Nasal 2.0L Cannula 08/16 0850 80 110/60 08/16 0819 98 Nasal 3.0L Cannula 08/16 0800 100 Nasal 3.0L Cannula 08/16 0800 97.9 87 31 110/60 100 Nasal 3.0L Cannula 08/16 0331 99 Nasal 3.0L Cannula 08/16 0000 97.9 80 19 102/56 97 Nasal 3.0L Cannula 08/16 0000 97 Nasal 3.0L Cannula 08/15 2200 92 120/60 08/15 2117 94 Nasal 35% Cannula 08/16 1999 95 Nasal 35% Cannula 08/15 1707 94 Nasal 40% Cannula Intake & Output 08/16 1600 08/16 0800 08/16 0000 08/15 1600 08/15 0800 08/15 0000 Intake Total 4126 279 8298 940 625 608 Output Total 1400 217 827 0439 700 700 Balance -351 410 760 -160 -75 -92 Intake, IV 244 0 250 60 0 250 Intake, Oral 0 0 Intake, Tube 505 610 560 480 275 108 Feeding Intake, Tube 300 300 270 400 350 250 Irrigant Number 1 0 0 0 0 Bowel Movements Output, Urine 1400 907 880 0824 700 700 Patient 197 lb 200 lb Weight Weight Bed scale Bed scale Measurement Method Physical Exam: EOMI, IGLESIA, mild left hemiparesis arm>left, slurred speech, lots of secretions. Current Medications: Current Medications Sig/Richard Start time Last Medication Dose Route Stop Time Status Admin Acetaminophen 650 MG ONCE ONE 08/15 2099 DC 08/15 PO 08/15 2101 2055 Acetylcysteine 2 ML EVERY 4 HRS/AWAKE 08/15 1999 AC 08/16 INH 1641 Albuterol Sulfate 3 ML EVERY 4 HRS/AWAKE 08/14 2000 AC 08/16 INH 1641 Aspirin 81 MG DAILY 08/17 1000 AC PO Aspirin 162 MG DAILY 08/15 1000 DC 08/16 PO 0850 Carvedilol 25 MG BID 08/11 1245 AC 08/16 PO 0850 Ceftazidime 1,000 MG Q12 08/13 2200 AC 08/16 IV 0849 Cetirizine HCl 10 MG ONCE ONE 08/15 2359 DC 08/15 PO 08/16 0000 2355 Dextrose/Water 1,000 ML ONCE ONE 08/16 1045 AC 08/16 IV 08/17 0644 1120 Diphenhydramine HCl 1 CYN DAILY 08/10 2300 AC 08/16 TOP 0850 Docusate Sodium 100 MG DAILY NEEDED PRN 08/11 1230 AC PO Furosemide 40 MG BID 08/16 1045 AC 08/16 IV 08/16 2201 1120 Furosemide 40 MG DAILY 08/15 1000 AC 08/16 PO 0850 Glycerin 2 SPRAY Q2P PRN 08/11 0215 AC PO Heparin Sodium/ 25,000 UNIT Q24H 08/16 1045 AC 08/16 Dextrose IV 1121 Dextrose/Water 500 ML Magnesium Oxide 400 MG ONE ONE 08/16 1615 DC PO 08/16 1616 Nystatin 1 CYN BID PRN 08/03 0645 AC 08/08 TOP 0936 Pantoprazole Sodium 40 MG DAILY 08/15 1000 AC 08/16 IV 0849 Potassium Chloride 40 MEQ DAILY 08/16 1000 AC 08/16 PO 0849 Senna/Docusate Sodium 1 TAB BID PRN 08/11 1504 AC 08/16 PO 0850 Vancomycin HCl 1,000 MG 08/14 DC 08/15 Dextrose/Water 250 ML IV 2054 Results Last 24 Hours of Lab Results: Laboratory Tests 08/16 0320 Chemistry Sodium (137 - 145 mmol/L) 153 H Potassium (3.5 - 5.1 mmol/L) 4.6 Chloride (98 - 107 mmol/L) 114 H Carbon Dioxide (22 - 30 mmol/L) 34 H Anion Gap (5 - 16) 6 BUN (9 - 20 mg/dL) 52 H Creatinine (0.7 - 1.2 mg/dL) 1.5 H Estimated GFR (>60 ml/min) 46 L Glucose (65 - 99 mg/dL) 110 H Calcium (8.4 - 10.2 mg/dL) 8.3 L Phosphorus (2.5 - 4.5 mg/dL) 4.1 Magnesium (1.6 - 2.3 mg/dL) 1.8 Total Bilirubin (0.2 - 1.3 mg/dL) 1.5 H AST (17 - 59 U/L) 78 H ALT (21 - 72 U/L) 91 H Albumin (3.5 - 5.0 g/dL) 1.9 L Coagulation PT (9.4 - 12.5 SEC) 20.6 H INR (0.90 - 1.17) 1.88 H Hematology CBC w Diff NO MAN DIFF REQ WBC (4.8 - 10.8 /CUMM) 7.4 RBC (4.70 - 6.10 /CUMM) 3.18 L Hgb (14.0 - 18.0 G/DL) 10.2 L Hct (42 - 52 %) 31.0 L MCV (80.0 - 94.0 FL) 97.6 H MCH (27.0 - 31.0 PG) 32.2 H MCHC (33.0 - 37.0 G/DL) 33.0 RDW (11.5 - 14.5 %) 17.4 H Plt Count (130 - 400 /CUMM) 234 MPV (7.4 - 10.4 FL) 10.0 Gran % (42.2 - 75.2 %) 79.5 H Lymphocytes % (20.5 - 51.1 %) 12.7 L Monocytes % (1.7 - 9.3 %) 3.3 Eosinophils % (0 - 5 %) 3.8 Basophils % (0.0 - 2.0 %) 0.7 Absolute Granulocytes (1.4 - 6.5 /CUMM) 5.9 Absolute Lymphocytes (1.2 - 3.4 /CUMM) 0.9 L Absolute Monocytes (0.10 - 0.60 /CUMM) 0.2 Absolute Eosinophils (0.0 - 0.7 /CUMM) 0.3 Absolute Basophils (0.0 - 0.2 /CUMM) 0.1 Recent Imaging Studies: NCHCT reveals hypodensity within the right abreu radiata Assessment/Plan Assessment: 72 year old man with finding of an apical thrombus now on heparin with resultant embolic stroke. Has multiple other comorbidities that are much more likely to be the reason for his initial mental status suppression than his subcortical stroke. His subcortical stroke is secondary to an emboli off the thrombus and is mainly responsible for his motor symptoms. Plan: No need for MRI as it will not private branch exchange service adviser. Would add Lipitor 80mg and if BP can allow Lisinopril for their protective cardiovascular properties. Neurology signing off.
[2017-08-16 18:17] LABS: PTT 52 SEC (25-37)
[2017-08-17] VITALS: BP 110/40
[2017-08-17 01:09] LABS: PTT 100 SEC (25-37)
[2017-08-17 04:33] LABS: ABSOLUTE BASOPHIL COUNT 0 /CUMM (0.0-0.2); ABSOLUTE EOSINOPHIL COUNT 0.4 /CUMM (0.0-0.7); ABSOLUTE GRANULOCYTE CT 5.1 /CUMM (1.4-6.5); ABSOLUTE LYMPH COUNT 1.1 /CUMM (1.2-3.4); ABSOLUTE MONOCYTE COUNT 0.3 /CUMM (0.10-0.60); BASOPHIL % 0.2 % (0.0-2.0); EOSINOPHIL % 5.2 % (0-5); GRANULOCYTE % 74.1 % (42.2-75.2); HEMATOCRIT 30.6 % (42-52); MEAN CORPUSCULAR HGB 31.8 PG (27.0-31.0); MEAN CORPUSCULAR HGB CONC 32.6 G/DL (33.0-37.0); MEAN CORPUSCULAR VOLUME 97.7 FL (80.0-94.0); MEAN PLATELET VOLUME 9.2 FL (7.4-10.4); PLATELET COUNT 248 /CUMM (130-400); RBC DISTRIBUTION WIDTH 17.1 % (11.5-14.5); RED BLOOD CELL CT 3.14 /CUMM (4.70-6.10); WHITE BLOOD CELL COUNT 6.9 /CUMM (4.8-10.8)
[2017-08-17 04:35] LABS: PT 18.4 SEC (9.4-12.5)
--- NOTE | 2017-08-17 07:36 | PN- Resident CRCU ---
Kai Brady MD 08/17/17 0735: Subjective HPI/CRCU Issues: Patient seen and examined. He is seen lying in bed with his head elevated resting comfortably maintained in a zachary/upper extremity restraints. He appears to be in no acute distress. He is still requesting "soda". His speech is dysarthric and difficult to understand. He denies any new complaints. Objective Vital Signs & I&O Last 8 Hrs of Vitals and I&O: Intake & Output 08/17 1600 Intake Total Output Total Balance Patient 89.358 kg Weight Weight Bed scale Measurement Method TMAX 98.2 SBP 92-110 Tele NSR with various ectopy, HR 78-102 Exam General Appearance: well developed/nourished, no apparent distress, alert, awake , comfortable Other Physical Findings: GEN: well developed, obese, elderly man in no acute distress HEENT: NCAT, PERRLA, EOMI, anicteric sclera, MMM; nasal cannula, NGT NECK: Supple, no JVD, trachea midline, no accessory respiratory use CARD: Normal S1/S2 w/o m/g/r; RRR PULM: Decreased left sided breath sounds ABD: Soft, NT, ND, BS+ NEURO: Awake, AAOx1, CN II-XII grossly intact, strength 5/5 x4 EXT: normal pulses, no edema, RLE erthema with wounds in various stages of healing Skin: various kris of induration / erythema blachable with pressure without any drainage, diffuse excoriations Weaning Parameters NIF: 333 Minute Volume: 10.0 Resp rate: 20 Vt: 555 Heart Rate: 95 Weaning Schedule Start Time: 0955 Minute Volume: 7.05 Resp Rate: 25 Vt: 300 Heart Rate: 97 End Time: 1155 Minute Volume: 7.93 Resp Rate: 19 Vt: 410 Heart Rate: 95 Start Time: 1250 Current Medications: Current Medications Sig/Richard Start time Last Medication Dose Route Stop Time Status Admin Acetylcysteine 2 ML EVERY 4 HRS/AWAKE 08/15 1999 DC 08/17 INH 0858 Albuterol Sulfate 3 ML EVERY 4 HRS/AWAKE 08/15 1999 AC 08/17 INH 1223 Aspirin 81 MG DAILY 08/17 1000 AC 08/17 PO 1036 Atorvastatin Calcium 80 MG 1700 08/16 1730 AC 08/16 PO 2050 Carvedilol 25 MG BID 08/11 1245 AC 08/17 PO 1036 Ceftazidime 1,000 MG Q12 08/13 2200 DC 08/16 IV 2050 Ciprofloxacin 500 MG BID 08/17 1215 AC 08/17 PO 08/21 1214 1423 Dextrose/Water 1,000 ML ONCE ONE 08/16 1045 DC 08/16 IV 08/17 0644 1120 Diphenhydramine HCl 50 MG Q4P PRN 08/17 0830 AC 08/17 IV 0831 Diphenhydramine HCl 25 MG ONCE ONE 08/16 1930 DC 08/16 IV 08/16 [id number] Diphenhydramine HCl 1 CYN DAILY 08/10 2300 AC 08/17 TOP 0831 Docusate Sodium 100 MG DAILY NEEDED PRN 08/11 1230 AC PO Furosemide 40 MG BID 08/16 1045 DC 08/16 IV 08/16 Furosemide 40 MG DAILY 08/15 1000 AC 08/17 PO 1036 Glycerin 2 SPRAY Q2P PRN 08/11 0215 AC PO Heparin Sodium 3,600 UNIT ONCE ONE 08/16 1845 DC 08/16 (Porcine) IV 08/16 1846 1840 Heparin Sodium 5,000 UNIT .STK-MED ONE 08/16 1838 DC (Porcine) IV 08/16 1839 Heparin Sodium/ 25,000 UNIT Q24H 08/16 1045 AC 08/17 Dextrose IV 1038 Dextrose/Water 500 ML Magnesium Oxide 400 MG ONE ONE 08/16 1615 DC 08/16 PO 08/16 1616 1745 Magnesium Sulfate 1 GM ONCE ONE 08/17 0930 DC 08/17 Dextrose/Water 100 ML IV 08/17 1329 1055 Nystatin 1 CYN BID PRN 08/03 0645 DC 08/08 TOP 0936 Pantoprazole Sodium 40 MG DAILY 08/15 1000 AC 08/17 IV 1036 Potassium Chloride 40 MEQ DAILY 08/16 1000 AC 08/17 PO 1036 Senna/Docusate Sodium 1 TAB BID PRN 08/11 1504 AC 08/16 PO 0850 Vancomycin HCl 1,000 MG 2030 08/14 2030 DC 08/15 Dextrose/Water 250 ML IV 2054 Impression/Plan Impression/Problem List Impression: 72 year old man with multiple medical problems seen for evaluation of progressive worsening altered mental status and "flu-like" symptoms. Patient continues to remain afebrile without leukocytosis on intravenous Ceftazidime. He is coverted to oral ciprofloxacin to complete a 7 day total antibiotic course. He is saturating adequately on 2.0L supplemental oxygen. PA/ Lateral chest x-ray demonstrated persistent mild central vascular congestion with small bilateral effusions/opacities. He is negative 2 liters fluid balance with improving hypernatremia after 1 L D5W. He failed swallow evaluation again today, he will have an MBS on sunday. He may require a PEG. He continues to have a diffuse patchy rash minimally relieved with benadryl without any clear cut cause, mucomyst is discontinued for fear of possible sulfa allergy. He is continued on IV heparin. Upper extremity restraints are discontinued. Problem List -Altered mental status, possible toxic metabolic encephalopathy -Acute Right abreu radiata infarct, probable cardioembolic -Acute Hypoxic Respiratory Failure, improving -Aspiration Pneumonia, on Ceftazidime -Large Left Pleural Effusion, improving -AFib with RVR, now in NSR s/p emergent cardioversion -Elevated Troponins, Likely demand ischemia -Right lower extremity Cellulitis -Hypernatremia, improving -Transaminitis -Apical Thrombus s/p embolization -History of Congestive heart Failure -Hypertension Plan -Continue ICU admission -Supplemental O2, taper as tolerated -NGT / Eason Catheter / Zachary -TRC with Nebs/Mucomyst -Aggressive pulmonary toilet/ Chest PT -Heparin GGT -Aspirin 81 mg PO Daily -Ceftazidime discontinued -Ciprofloxacin 500 mg PO BID started, total 7 day course -Protonix 40 mg IV Daily -Start Lisinopril as BP allows -Atorvastatin 80 mg PO Daily started -Continue meds: Carvedilol, Colace, Senna -Consults with Cardiology, ID, Nephrology, Neurology, Vascular -F/U cultures & Sensitivites; NGTD -Daily INR, CBC, CMP -Pain control PRN -NPO, failed swallow eval on Tube Feeds -DVT PPx with ALPS -FULL CODE Problem List: 1. Altered mental state Pain Ratin Tomorrow's Labs & Rationales: See assessment Plan DVT/Prophylaxis: pharmacological Salas Contreras MD 08/17/17 1411: Attending MD Review Statement Attending Sign Off Attending Cosign Statement: I have: examined this patient, reviewed [facility] EMR data, personally reviewd images, discussd w/resident/PA/PREFORMS LAMINATOR, discussed mgmt plan w/tate, discussed mgmt plan w/CM, discussed mgmt plan w/pt, agreed w/resident/PA/PREFORMS LAMINATOR, amended to note. Other Findings: Salas Carson M.D. have examined this patient, reviewed available EMR data, personally reviewed images, discussed with resident/PA/PREFORMS LAMINATOR, discussed management plan with housestaff and nursing staff, discussed managment plan all of healthcare providers, discussed management plan with patient and/or family, agreed with resident/PA/PREFORMS LAMINATOR. The past history and parts of the chart have been autopopulated. Impression 72 year old man * small left pleural effusion, hypoxemic respiratory failure improving * -acute right abreu radiata infarct * a.fib * RLE cellulitis * apical thrombus s/p embolization * hx of chf Plan -chest pt, pulmonary hygiene, aspiration precautions -cont abx -trc/nebs -failed swallowing evaluation need to discuss feeding tube option -cont a/c -neurology, cardiology, ID appreciated DVT prophylaxis at all times TTS 35 min
[2017-08-17 08:00] VITALS: BP 112/78
[2017-08-17 08:43] LABS: PTT 61 SEC (25-37)
--- NOTE | 2017-08-17 10:54 | PN- Infect Dx ---
Subjective Subjective: Afebrile without complaints Objective Last 24 Hrs of Vital Signs/I&O Vital Signs Date Time Temp Pulse Resp B/P B/P Pulse O2 O2 Flow FiO2 Mean Ox Delivery Rate 08/17 1036 114/58 08/17 0910 94 Nasal 2.0L Cannula 08/17 0800 99.0 80 20 112/78 96 Nasal 2.0L Cannula 08/17 0400 95 Nasal 2.0L Cannula 08/17 0000 94 Nasal 2.0L Cannula 08/17 0000 97.7 79 20 110/40 93 Nasal 2.0L Cannula 08/16 2242 94 106/60 08/16 2000 95 Nasal 2.0L Cannula 08/16 1645 95 Nasal 2.0L Cannula 08/16 1600 98.0 76 21 102/58 98 Nasal 2.0L Cannula 08/16 1600 98 Nasal 2.0L Cannula 08/16 1227 98 Nasal 2.0L Cannula 08/16 1200 97 Nasal 2.0L Cannula 08/16 1200 99.1 76 23 110/60 97 Nasal 2.0L Cannula Intake & Output 08/17 1600 08/17 0800 08/17 0000 Intake Total 1464 1792 Output Total 720 1360 Balance 744 432 Intake, IV 524 662 Intake, Tube 640 560 Feeding Intake, Tube 300 570 Irrigant Number 0 Bowel Movements Output, Urine 720 1360 Physical Exam Other Physical Findings: He is lethargic, but arousable, in no acute distress Skin macular rash persists, particularly on the chest Lungs scattered rhonchi bilaterally Heart regular rhythm with no murmur Abdomen is soft, nontender with positive bowel sounds Extremities decreased edema both lower extremities; PICC in the right upper extremity with no inflammation at the site Eason catheter remains in place Results Last 24 Hours of Lab Results: Laboratory Tests 08/17 08/17 08/17 08/16 0645 0400 0010 1730 Chemistry Sodium (137 - 145 mmol/L) 150 H Potassium (3.5 - 5.1 mmol/L) 3.9 Chloride (98 - 107 mmol/L) 108 H Carbon Dioxide (22 - 30 mmol/L) 36 H Anion Gap (5 - 16) 5 BUN (9 - 20 mg/dL) 49 H Creatinine (0.7 - 1.2 mg/dL) 1.4 H Estimated GFR (>60 ml/min) 50 L Glucose (65 - 99 mg/dL) 134 H Calcium (8.4 - 10.2 mg/dL) 8.0 L Phosphorus (2.5 - 4.5 mg/dL) 2.9 Magnesium (1.6 - 2.3 mg/dL) 1.7 Total Bilirubin (0.2 - 1.3 mg/dL) 1.4 H AST (17 - 59 U/L) 50 ALT (21 - 72 U/L) 71 Albumin (3.5 - 5.0 g/dL) 1.8 L Coagulation PT (9.4 - 12.5 SEC) 18.4 H INR (0.90 - 1.17) 1.68 H APTT (25 - 37 SEC) 61 H 100 H 52 H Hematology CBC w Diff NO MAN DIFF REQ WBC (4.8 - 10.8 /CUMM) 6.9 RBC (4.70 - 6.10 /CUMM) 3.14 L Hgb (14.0 - 18.0 G/DL) 10.0 L Hct (42 - 52 %) 30.6 L MCV (80.0 - 94.0 FL) 97.7 H MCH (27.0 - 31.0 PG) 31.8 H MCHC (33.0 - 37.0 G/DL) 32.6 L RDW (11.5 - 14.5 %) 17.1 H Plt Count (130 - 400 /CUMM) 248 MPV (7.4 - 10.4 FL) 9.2 Gran % (42.2 - 75.2 %) 74.1 Lymphocytes % (20.5 - 51.1 %) 16.0 L Monocytes % (1.7 - 9.3 %) 4.5 Eosinophils % (0 - 5 %) 5.2 H Basophils % (0.0 - 2.0 %) 0.2 Absolute Granulocytes (1.4 - 6.5 /CUMM) 5.1 Absolute Lymphocytes (1.2 - 3.4 /CUMM) 1.1 L Absolute Monocytes (0.10 - 0.60 /CUMM) 0.3 Absolute Eosinophils (0.0 - 0.7 /CUMM) 0.4 Absolute Basophils (0.0 - 0.2 /CUMM) 0 Last 24 Hours of Zackery Results: No new cultures Assessment/Plan ID Impression: Remains stable, with overall improvement in his respiratory status and with temperatures and white blood cell count remaining normal now on Ceftazidime alone, Day 4 of treatment for possible aspiration pneumonia, though suspect that his recent respiratory distress and chest x-ray findings were more likely secondary to mucous plugging/atelectasis than aspiration. His rash persists and is likely medication related, with the Ceftazidime a possible culprit. He has diuresed a significant amount, which clearly contributed to his initial improvement, with hypernatremia persisting. Suggestion: 1. Further management of his fluid and electrolyte status per ICU team 2. Continue aggressive pulmonary toilet 3. Discontinue Ceftazidime 4. Begin Ciprofloxacin 500 mg po every 12 hours via the NG tube
[2017-08-17 12:00] VITALS: BP 90/52
--- NOTE | 2017-08-17 13:04 | RADIOLOGY REPORT ---
EXAMINATION: XR CHEST CLINICAL INFORMATION: Assess for improvement of left lung collapse/effusion. Hypoxia. COMPARISON: Several prior chest x-rays, most recent of which is dated 08/16/2017. TECHNIQUE: 2 views of the chest were obtained on 3 images. FINDINGS: The lateral views of the chest are of limited diagnostic utility due to underpenetration. An enteric tube is seen coursing into the abdomen with tip beyond the [id number] of this exam. Multiple EKG leads overlie the chest. A right sided midline catheter is again seen in place with tip in region of the axillary vein, unchanged. The cardiomediastinal silhouette is enlarged. Central vascular congestion is again seen. There are persistent bilateral mid and lower lung parenchymal opacities, denser in the retrocardiac left lung base than on the right side with obscuration of the left hemidiaphragm. Findings are similar to minimally improved compared to the previous exam. Bilateral pleural effusions are seen, similar to the previous study. No pneumothorax is seen. Bony structures are unremarkable. IMPRESSION: 1. No change in positioning of the right sided midline catheter. 2. Enteric tube courses into the abdomen with tip beyond the [id number] of this exam. 3. Persistent mild central vascular congestion, small bilateral pleural effusions and bibasilar opacities, unchanged to minimally improved compared to the previous exam.
[2017-08-17 16:00] VITALS: BP 94/60
[2017-08-17 18:31] LABS: PTT 62 SEC (25-37)
[2017-08-17 22:49] VITALS: BP 118/52
[2017-08-18] VITALS: BP 120/70
[2017-08-18 05:29] LABS: ABSOLUTE BASOPHIL COUNT 0 /CUMM (0.0-0.2); ABSOLUTE EOSINOPHIL COUNT 0.5 /CUMM (0.0-0.7); ABSOLUTE GRANULOCYTE CT 5.5 /CUMM (1.4-6.5); ABSOLUTE LYMPH COUNT 1.3 /CUMM (1.2-3.4); ABSOLUTE MONOCYTE COUNT 0.4 /CUMM (0.10-0.60); BASOPHIL % 0.1 % (0.0-2.0); EOSINOPHIL % 6.4 % (0-5); GRANULOCYTE % 71.5 % (42.2-75.2); HEMATOCRIT 30.8 % (42-52); MEAN CORPUSCULAR HGB 32.2 PG (27.0-31.0); MEAN CORPUSCULAR VOLUME 97.4 FL (80.0-94.0); MEAN PLATELET VOLUME 9.5 FL (7.4-10.4); PLATELET COUNT 296 /CUMM (130-400); RBC DISTRIBUTION WIDTH 16.9 % (11.5-14.5); RED BLOOD CELL CT 3.17 /CUMM (4.70-6.10); WHITE BLOOD CELL COUNT 7.7 /CUMM (4.8-10.8)
[2017-08-18 05:33] LABS: PT 17.3 SEC (9.4-12.5); PTT 79 SEC (25-37)
[2017-08-18 08:00] VITALS: BP 141/74
--- NOTE | 2017-08-18 08:04 | PN- Resident CRCU ---
Subjective HPI/CRCU Issues: Patient initially in ICU because of A. fib with RVR, stroke, among other medical conditions noted below. Patient followed up and examined by me today. He appears to be resting comfortably in bed, not in distress, bilateral upper extremity restraints in place, slightly confused but denies any complaints. Objective Vital Signs & I&O Last 8 Hrs of Vitals and I&O: BP- 141/74 pulse- 88 temp- 97.8 rr- 20 Exam General Appearance: awake, comfortable, obese, b/l upper ext soft restraints in place Other Physical Findings: HEENT: NCAT, PERRLA, EOMI, anicteric sclera, MMM; nasal cannula NECK: Supple, no JVD, trachea midline, no accessory respiratory use CARD: Normal S1/S2 w/o m/g/r; RRR PULM: Decreased left sided breath sounds ABD: Soft, NT, ND, BS+ NEURO: Awake, AAOx1, CN II-XII grossly intact, strength 5/5 x4 EXT: normal pulses, b/l pedal edema noted, RLE slightly warm, erthematous with wounds in various stages of healing, DNVS-intact Skin: various kris of induration / erythema blachable with pressure without any drainage, diffuse excoriations Current Medications: Current Medications Sig/Richard Start time Last Medication Dose Route Stop Time Status Admin Albuterol Sulfate 3 ML EVERY 4 HRS/AWAKE 08/14 2000 AC 08/18 INH 1138 Aspirin 81 MG DAILY 08/17 1000 AC 08/18 PO 1009 Atorvastatin Calcium 80 MG 1700 08/16 1730 AC 08/17 PO 1600 Carvedilol 25 MG BID 08/11 1245 AC 08/18 PO 1009 Ciprofloxacin 500 MG BID 08/17 1215 AC 08/18 PO 08/21 1214 1009 Diphenhydramine HCl 50 MG Q4P PRN 08/17 0830 AC 08/18 IV 1009 Diphenhydramine HCl 1 CYN DAILY 08/10 2300 AC 08/18 TOP 1011 Docusate Sodium 100 MG DAILY NEEDED PRN 08/11 1230 AC PO Furosemide 40 MG DAILY 08/15 1000 AC 08/18 PO 1009 Glycerin 2 SPRAY Q2P PRN 08/11 0215 AC PO Heparin Sodium/ 25,000 UNIT Q24H 08/16 1045 AC 03/16 Dextrose IV 1038 Dextrose/Water 500 ML Pantoprazole Sodium 40 MG DAILY 08/15 1000 AC 08/18 IV 1012 Potassium Chloride 40 MEQ DAILY 08/16 1000 AC 08/18 PO 1010 Senna/Docusate Sodium 1 TAB BID PRN 08/11 1504 AC 08/18 PO 1009 Sodium Chloride 2 SPRAY Q4P PRN 08/18 1000 AC WENDI Impression/Plan Impression/Problem List Impression: SYNOPSIS 08/18/17: 72-year-old male with history of CHF, hypertension, previous syncopal episode, presented with altered mental status and shortness of breath, initially being treated for AMS, aspiration pneumonia and RICHI and Left lower leg cellulitis, treated with Doxy, ceftriaxone, vancomycin, and was later with vancomycin and Ceftazidime. Patient had LP on 08/06/17 which was negative. - He was found to have left ventricle at Clifford thrombus in the echocardiogram , and mild left atrial dilatation, possible thrombus in the left atrial appendage, atrial septal aneurysm but no evidence of atrial shunt, mild mitral regurgitation and a small pericardial effusion among others (please see full echo report). He has been on IV heparin for anti-coagulation. -Patient was found to have paroxysmal atrial fibrillation with rapid ventricular response as well, underwent emergent cardioversion, and was placed on diltiazem drip converted to by mouth betablocker. He has IV Heparin for anticoagulation. Cardiology following. (Regular dredge engineer- Dr Hitchcock) -He also had left hemiparesis and was found to have subcortical stroke secondary to an emboli from left ventricle thrombus, for which neurology suggested Lipitor 80 mg controlling blood pressure and no need for MRI and has signed off. -For RICHI, nephrology has been on board as the patient had hypernatremia secondary to decreased free water intake which is now improving and the patient currently is on PO Lasix 40 mg twice a day, last follow up was on 08/10/17. -patient still has some warmth, redness and swelling of his left lower extremity , which is much better compared to his admitting presentation. But he continues to have generalized edema, partially explained by low albumin (1.9) and heart failure. -He also had complete opacification of left hemithorax which is now improving with aggressive PT, likely secondary to mucus plugging and atelectasis rather than aspiration. Patient is currently on ciprofloxacin. Eason catheter is still on, suggested by ID to remove. -Patient has had generalized rash, etiology still unknown. No mucosal involvement. -Details to be written in the transfer of care summary. -Consultations: ID, Cardio, nephro (last note 08/10), neuro (signed off) ---- Problem List -Altered mental status, possible toxic metabolic encephalopathy, improving ( slowly) -Acute Right abreu radiata infarct, probable cardioembolic -Acute Hypoxic Respiratory Failure, improving -Aspiration Pneumonia, on Ciprofloxacin -Large Left Pleural Effusion, improving -AFib with RVR, now in NSR s/p emergent cardioversion -Apical Thrombus s/p embolization -Ischemic CVA, infarct involving deep white matter of the right abreu radiata -History of Congestive heart Failure -Hypertension -Elevated Troponins, Likely demand ischemia -Right lower extremity Cellulitis, improving -Hypernatremia, improving -Transaminitis Plan -Continue ICU admission -Supplemental O2, taper as tolerated -NGT / Eason Catheter in situ -TRC with Nebs/Mucomyst -Aggressive pulmonary toilet/ Chest PT -Heparin GGT to continue, given cardiac thrombus -Aspirin 81 mg PO Daily -Ciprofloxacin 500 mg PO BID started, total 7 day course -Protonix 40 mg IV Daily -Start Lisinopril as BP allows -Atorvastatin 80 mg PO Daily -Continue meds: Carvedilol, Colace, Senna -Consults with Cardiology, ID, Nephrology (last note 08/10/17), Neurology (signed off), Vascular -F/U cultures & Sensitivites; NGTD -Daily INR, CBC, CMP -Pain control PRN -NPO, failed swallow eval, is on Tube Feeds -DVT PPx with ALPS -FULL CODE Problem List: 1. Rapid atrial fibrillation 2. Altered mental state 3. Apical mural thrombus 4. Thrombus of left atrial appendage Pain Ratin Tomorrow's Labs & Rationales: CBC, BEP, INR, consider LFT Plan DVT/Prophylaxis: pharmacological
--- NOTE | 2017-08-18 09:59 | PN- CRCU ---
Subjective HPI/Critical Care Issues: Patient remains medically stable hypernatremia is improving hemodynamics are stable Objective Current Medications: Current Medications Sig/Richard Start time Last Medication Dose Route Stop Time Status Admin Acetylcysteine 2 ML EVERY 4 HRS/AWAKE 08/15 1999 DC 08/17 INH 0858 Albuterol Sulfate 3 ML EVERY 4 HRS/AWAKE 08/15 1999 AC 08/18 INH 0806 Aspirin 81 MG DAILY 08/17 1000 AC 08/17 PO 1036 Atorvastatin Calcium 80 MG 1700 08/16 1730 AC 08/17 PO 1600 Carvedilol 25 MG BID 08/11 1245 AC 08/17 PO 2213 Ceftazidime 1,000 MG Q12 08/13 2200 DC 08/16 IV 2050 Ciprofloxacin 500 MG BID 08/17 1215 AC 08/17 PO 08/21 1214 2213 Diphenhydramine HCl 50 MG Q4P PRN 08/17 0830 AC 08/18 IV 0221 Diphenhydramine HCl 1 CYN DAILY 08/10 2300 AC 08/17 TOP 0831 Docusate Sodium 100 MG DAILY NEEDED PRN 08/11 1230 AC PO Furosemide 40 MG DAILY 08/15 1000 AC 08/17 PO 1036 Glycerin 2 SPRAY Q2P PRN 08/11 0215 AC PO Heparin Sodium/ 25,000 UNIT Q24H 08/16 1045 AC 08/17 Dextrose IV 1038 Dextrose/Water 500 ML Magnesium Sulfate 1 GM ONCE ONE 08/17 0930 DC 08/17 Dextrose/Water 100 ML IV 08/17 1329 1055 Pantoprazole Sodium 40 MG DAILY 08/15 1000 AC 08/17 IV 1036 Potassium Chloride 40 MEQ DAILY 08/16 1000 AC 08/17 PO 1036 Senna/Docusate Sodium 1 TAB BID PRN 08/11 1504 AC 08/16 PO 0850 Vital Signs & I&O Last 24 Hrs of Vitals and I&O: Vital Signs Date Time Temp Pulse Resp B/P B/P Pulse O2 O2 Flow FiO2 Mean Ox Delivery Rate 08/18 0800 97.8 88 22 141/74 95 Room Air 08/18 0400 95 Room Air 08/18 0000 96 Room Air 08/18 0000 98.1 80 20 120/70 96 Room Air 08/17 2249 98.7 91 24 118/52 92 Room Air 08/17 2213 91 118/52 08/18 1999 92 Room Air 08/17 1639 93 Room Air Room Air 08/17 1600 95 Room Air 08/17 1600 98.3 78 24 94/60 95 Room Air 08/17 1200 91 Nasal 2.0L Cannula 08/17 1200 99.0 80 21 90/52 96 Nasal 2.0L Cannula 08/17 1036 114/58 Intake & Output 08/18 1600 08/18 0800 08/18 0000 Intake Total 1149 1098 Output Total 640 520 Balance 509 578 Intake, IV 209 208 Intake, Oral 0 Intake, Other 100 Intake, 640 TPN/PPN Intake, Tube 640 Feeding Intake, Tube 300 150 Irrigant Output, Urine 640 520 Air oxygen saturation 95% exam of his chest shows rare rhonchi cardiac exam shows normal S1 and S2 without murmurs Impression/Plan Impression/Plan Impression/Plan: 32-year-old gentleman status post CVA aspiration pneumonia and improving electrolyte abnormalities. Recommendations: Transferred to telemetry. Continue free water replacement. Continue aspiration precautions. Complete course of antibiotics
--- NOTE | 2017-08-18 10:03 | PN- Infect Dx ---
Subjective Subjective: Afebrile without complaints Objective Last 24 Hrs of Vital Signs/I&O Vital Signs Date Time Temp Pulse Resp B/P B/P Pulse O2 O2 Flow FiO2 Mean Ox Delivery Rate 08/18 08 97.8 88 22 141/74 95 Room Air 08/18 0400 95 Room Air 08/18 0000 96 Room Air 08/18 0000 98.1 80 20 120/70 96 Room Air 08/17 2249 98.7 91 24 118/52 92 Room Air 08/17 2213 91 118/52 08/17 2000 92 Room Air 08/17 1639 93 Room Air Room Air 08/17 1600 95 Room Air 08/17 1600 98.3 78 24 94/60 95 Room Air 08/17 1200 91 Nasal 2.0L Cannula 08/17 1200 99.0 80 21 90/52 96 Nasal 2.0L Cannula 08/17 1036 114/58 Intake & Output 08/18 1600 08/18 0800 08/18 0000 Intake Total 1149 1098 Output Total 640 520 Balance 509 578 Intake, IV 209 208 Intake, Oral 0 Intake, Other 100 Intake, 640 TPN/PPN Intake, Tube 640 Feeding Intake, Tube 300 150 Irrigant Output, Urine 640 520 Physical Exam Other Physical Findings: He is awake and alert, in no acute distress, with speech garbled Given macular rash improved Lungs bilateral rhonchi Heart regular rhythm with no murmur Abdomen is soft, nontender with positive bowel sounds Back no CVA tenderness Extremities decreased erythema and edema both lower extremities; PICC in the right upper extremity with no inflammation at the site Eason catheter remains in place Results Last 24 Hours of Lab Results: Laboratory Tests 08/18 08/18 08/17 0600 0500 1749 Chemistry Sodium (137 - 145 mmol/L) 147 H Potassium (3.5 - 5.1 mmol/L) 4.2 Chloride (98 - 107 mmol/L) 109 H Carbon Dioxide (22 - 30 mmol/L) 34 H Anion Gap (5 - 16) 4 L BUN (9 - 20 mg/dL) 48 H Creatinine (0.7 - 1.2 mg/dL) 1.3 H Estimated GFR (>60 ml/min) 54 L Glucose (65 - 99 mg/dL) 117 H Calcium (8.4 - 10.2 mg/dL) 8.4 Phosphorus (2.5 - 4.5 mg/dL) 2.8 Magnesium (1.6 - 2.3 mg/dL) 2.1 Total Bilirubin (0.2 - 1.3 mg/dL) 1.4 H AST (17 - 59 U/L) 56 ALT (21 - 72 U/L) 68 Albumin (3.5 - 5.0 g/dL) 1.9 L Coagulation PT (9.4 - 12.5 SEC) 17.3 H INR (0.90 - 1.17) 1.58 H APTT (25 - 37 SEC) Cancelled 79 H 62 H Hematology CBC w Diff NO MAN DIFF REQ WBC (4.8 - 10.8 /CUMM) 7.7 RBC (4.70 - 6.10 /CUMM) 3.17 L Hgb (14.0 - 18.0 G/DL) 10.2 L Hct (42 - 52 %) 30.8 L MCV (80.0 - 94.0 FL) 97.4 H MCH (27.0 - 31.0 PG) 32.2 H MCHC (33.0 - 37.0 G/DL) 33.0 RDW (11.5 - 14.5 %) 16.9 H Plt Count (130 - 400 /CUMM) 296 MPV (7.4 - 10.4 FL) 9.5 Gran % (42.2 - 75.2 %) 71.5 Lymphocytes % (20.5 - 51.1 %) 16.8 L Monocytes % (1.7 - 9.3 %) 5.2 Eosinophils % (0 - 5 %) 6.4 H Basophils % (0.0 - 2.0 %) 0.1 Absolute Granulocytes (1.4 - 6.5 /CUMM) 5.5 Absolute Lymphocytes (1.2 - 3.4 /CUMM) 1.3 Absolute Monocytes (0.10 - 0.60 /CUMM) 0.4 Absolute Eosinophils (0.0 - 0.7 /CUMM) 0.5 Absolute Basophils (0.0 - 0.2 /CUMM) 0 Last 24 Hours of Zackery Results: No new cultures Assessment/Plan ID Impression: Doing well overall, with improvement in his respiratory status and with temperatures and white blood cell count remaining normal now on Ciprofloxacin, Day 5 of treatment for possible aspiration pneumonia, though suspect that his recent respiratory distress and chest x-ray findings were more likely secondary to mucous plugging/atelectasis than aspiration. His hypernatremia has also mproved. Suggestion: 1. Remove Eason catheter 2. Continue aggressive pulmonary toilet 3. Continue Ciprofloxacin
[2017-08-18 12:32] VITALS: BP 94/60
[2017-08-18 14:55] VITALS: BP 108/60
[2017-08-18 17:59] LABS: PTT 81 SEC (25-37)
--- NOTE | 2017-08-18 18:06 | RADIOLOGY REPORT ---
EXAMINATION: XR PORTABLE CHEST CLINICAL INFORMATION: NG tube placement COMPARISON: 08/17/2017 TECHNIQUE: Portable AP view of the chest was obtained. FINDINGS: The examination is limited by technique. The outline of the NG tube is visualized with tip looped back on itself and pointing out that the level of the gastroesophageal junction. The cardiac silhouette remains enlarged. Central vascular congestion is redemonstrated. There is persistent obscuration of the left hemidiaphragm. There are likely bilateral small pleural effusions. The right lung and left upper lobe are grossly clear. IMPRESSION: Technically limited examination. The NG tube is looped back on itself. Recommend advancement (10 cm) and recheck.
--- NOTE | 2017-08-18 19:12 | RADIOLOGY REPORT ---
EXAMINATION: XR PORTABLE CHEST CLINICAL INFORMATION: NG tube placement COMPARISON: 08/18/2017 TECHNIQUE: Portable frontal view of the chest was obtained. FINDINGS: Cardiomegaly and congested appearance of pulmonary vessels. No pulmonary edema. Persistent opacification at the left base from small effusion and compressive atelectasis, with or without superimposed consolidation. The enteric tube has been repositioned and it is no longer looped upon itself. Instead, the tube extends below the diaphragm and into the proximal stomach. No pneumoperitoneum. IMPRESSION: 1. Cardiomegaly and pulmonary vascular congestion. 2. Persistent small left pleural effusion and left basilar opacification. 3. The enteric tube is positioned within the proximal stomach.
[2017-08-18 22:43] VITALS: BP 112/68
[2017-08-19 06:08] LABS: ABSOLUTE BASOPHIL COUNT 0 /CUMM (0.0-0.2); ABSOLUTE EOSINOPHIL COUNT 0.5 /CUMM (0.0-0.7); ABSOLUTE GRANULOCYTE CT 4.8 /CUMM (1.4-6.5); ABSOLUTE LYMPH COUNT 1.5 /CUMM (1.2-3.4); ABSOLUTE MONOCYTE COUNT 0.4 /CUMM (0.10-0.60); BASOPHIL % 0.4 % (0.0-2.0); EOSINOPHIL % 6.7 % (0-5); GRANULOCYTE % 66.2 % (42.2-75.2); HEMATOCRIT 31.4 % (42-52); MEAN CORPUSCULAR HGB 31.6 PG (27.0-31.0); MEAN CORPUSCULAR HGB CONC 32.1 G/DL (33.0-37.0); MEAN CORPUSCULAR VOLUME 98.3 FL (80.0-94.0); MEAN PLATELET VOLUME 10.1 FL (7.4-10.4); PLATELET COUNT 297 /CUMM (130-400); WHITE BLOOD CELL COUNT 7.3 /CUMM (4.8-10.8)
[2017-08-19 06:26] LABS: PT 17.7 SEC (9.4-12.5); PTT 68 SEC (25-37)
[2017-08-19 07:02] VITALS: BP 110/52
--- NOTE | 2017-08-19 08:56 | PN- Housestaff ---
Sterling KOEHLER,Loli 08/19/17 0856: Subjective Follow-up For: -Altered mental status, possible toxic metabolic encephalopathy, improving ( slowly) -Acute Right abreu radiata infarct, probable cardioembolic -Acute Hypoxic Respiratory Failure, improving -Aspiration Pneumonia, on Ciprofloxacin -Large Left Pleural Effusion, improving -AFib with RVR, now in NSR s/p emergent cardioversion -Apical Thrombus s/p embolization -Ischemic CVA, infarct involving deep white matter of the right abreu radiata -History of Congestive heart Failure -Hypertension Tele-Events Since Last Visit: No overnight events Subjective: Patient was seen and examined at bedside, he continues to be altered, and in restraints, was not able to provide any complaints, no overnight events except that the patient pulled his NG tube and tube feeding had to be held, it was resumed today after confirming that it is in place Review of Systems Constitutional: Reports: see HPI. Objective Last 24 Hrs of Vital Signs/I&O Vital Signs Date Time Temp Pulse Resp B/P B/P Pulse O2 O2 Flow FiO2 Mean Ox Delivery Rate 08/19 0915 118/60 08/19 0755 94 Room Air 08/19 0702 99.6 78 24 110/52 94 08/19 0000 Room Air 08/18 2243 98.0 80 20 112/68 93 Room Air 08/18 2215 86 112/68 08/18 1709 93 Room Air Room Air 08/18 1600 Room Air 08/18 1455 98.3 79 20 108/60 94 Room Air 08/18 1232 98.8 76 22 94/60 94 Room Air Intake & Output 08/19 1600 08/19 0800 08/19 0000 Intake Total 310 80 Output Total 400 200 Balance -90 -120 Intake, IV 80 Intake, Tube 160 Feeding Intake, Tube 150 Irrigant Output, Urine 400 200 Patient 212 lb Weight Weight Bed scale Measurement Method Physical Exam General Appearance: Alert, No Acute Distress HEENT: Atraumatic, PERRLA, EOMI, NGT in place Neck: Supple Cardiovascular: Normal S1, Normal S2 Lungs: Clear to Auscultation Abdomen: Normal Bowel Sounds, Soft Extremities: No Clubbing, No Cyanosis, No Edema Vascular: Normal Pulses Assessment/Plan Assessment: 72-year-old male with history of CHF, hypertension, previous syncopal episode, presented with altered mental status and shortness of breath, initially being treated for AMS, aspiration pneumonia and RICHI and Left lower leg cellulitis, treated with Doxy, ceftriaxone, vancomycin, and was later with vancomycin and Ceftazidime. Patient had LP on 08/06/17 which was negative. - He was found to have left ventricle at Clifford thrombus in the echocardiogram , and mild left atrial dilatation, possible thrombus in the left atrial appendage, atrial septal aneurysm but no evidence of atrial shunt, mild mitral regurgitation and a small pericardial effusion among others (please see full echo report). He has been on IV heparin for anti-coagulation. -Patient was found to have paroxysmal atrial fibrillation with rapid ventricular response as well, underwent emergent cardioversion, and was placed on diltiazem drip converted to by mouth betablocker. He is on IV Heparin for anticoagulation. Cardiology following. (Regular resident in diagnostic radiology- Dr Hitchcock) -He also had left hemiparesis and was found to have subcortical stroke secondary to an emboli from left ventricle thrombus, for which neurology suggested Lipitor 80 mg controlling blood pressure and no need for MRI and has signed off. -For RICHI, nephrology has been on board as the patient had hypernatremia secondary to decreased free water intake which is now improving and the patient currently is on PO Lasix 40 mg twice a day, last follow up was on 08/10/17. -patient still has some warmth, redness and swelling of his left lower extremity , which is much better compared to his admitting presentation. But he continues to have generalized edema, partially explained by low albumin (1.9) and heart failure. -He also had complete opacification of left hemithorax which is now improving with aggressive PT, likely secondary to mucus plugging and atelectasis rather than aspiration. Patient is currently on ciprofloxacin. Eason catheter is still on, suggested by ID to remove. -Patient has had generalized rash, etiology still unknown. No mucosal involvement. -Details to be written in the transfer of care summary. -Consultations: ID, Cardio, nephro (last note 08/10), neuro (signed off) ---- Problem List -Altered mental status, possible toxic metabolic encephalopathy, improving ( slowly) -Acute Right abreu radiata infarct, probable cardioembolic -Acute Hypoxic Respiratory Failure, improving -Aspiration Pneumonia, on Ciprofloxacin -Large Left Pleural Effusion, improving -AFib with RVR, now in NSR s/p emergent cardioversion -Apical Thrombus s/p embolization -Ischemic CVA, infarct involving deep white matter of the right abreu radiata -History of Congestive heart Failure -Hypertension -Elevated Troponins, Likely demand ischemia -Right lower extremity Cellulitis, improving -Hypernatremia, improving -Transaminitis Plan -Continue to monitor on telemetry -Supplemental O2, taper as tolerated -NGT / Eason Catheter in situ -Tube feeding had to be held due to risk of aspiration -TRC with Nebs/Mucomyst -Aggressive pulmonary toilet/ Chest PT -Heparin GGT to continue, given cardiac thrombus -Aspirin 81 mg PO Daily -Ciprofloxacin 500 mg PO BID started, total 7 day course (day 3) -Protonix 40 mg IV Daily -Start Lisinopril as BP allows (blood pressure was not running towards the lower side we will consider starting tomorrow) -Continue Lasix 40 mg p.o. daily -Atorvastatin 80 mg PO Daily -Continue meds: Carvedilol, Colace, Senna -Consults with Cardiology, ID, Nephrology (last note 08/10/17), Neurology (signed off), Vascular -F/U cultures & Sensitivites; NGTD -Daily INR, CBC, CMP -Pain control PRN -NPO, failed swallow eval, continue tube feeding -DVT PPx with ALPS -FULL CODE Problem List: 1. Rapid atrial fibrillation 2. Altered mental state 3. Apical mural thrombus 4. Thrombus of left atrial appendage Pain Ratin Pain Location: N/A Pain Goal: Remain pain free Pain Plan: Pathway Tomorrow's Labs & Rationales: cbc bep ptt Myron Hauser MD 08/19/17 1217: Attending MD Review Statement Attending Statement Attending MD Statement: examined this patient, discuss w/resident/PA/SCARF GLUER, agreed w/resident/PA/SCARF GLUER, discussed with nursing Attending Assessment/Plan: Mr. Pike is a 72-year-old male with history of congestive heart failure/ previous syncopal episode, hypertension presents with altered mental status and aspiration pneumonia - Altered mental status - patient still confused -Acute Right abreu radiata infarct -Acute Hypoxic Respiratory Failure - resolving -Aspiration Pneumonia, on Ciprofloxacin - ID following -AFib with RVR, now in NSR s/p emergent cardioversion -Hypernatremia - Resolving - NG feeds - still there is a concern for aspiration - need to discuss with family about feeding tube options - Continue with IV protonix
[2017-08-19 14:00] VITALS: BP 102/64
[2017-08-19 19:52] LABS: PTT 60 SEC (25-37)
[2017-08-19 22:43] VITALS: BP 100/50
[2017-08-20 05:33] LABS: ABSOLUTE BASOPHIL COUNT 0 /CUMM (0.0-0.2); ABSOLUTE EOSINOPHIL COUNT 0.6 /CUMM (0.0-0.7); ABSOLUTE GRANULOCYTE CT 3.9 /CUMM (1.4-6.5); ABSOLUTE LYMPH COUNT 1.6 /CUMM (1.2-3.4); ABSOLUTE MONOCYTE COUNT 0.5 /CUMM (0.10-0.60); BASOPHIL % 0.3 % (0.0-2.0); EOSINOPHIL % 8.8 % (0-5); GRANULOCYTE % 59.2 % (42.2-75.2); HEMATOCRIT 29.7 % (42-52); MEAN CORPUSCULAR HGB 32.2 PG (27.0-31.0); MEAN CORPUSCULAR HGB CONC 32.7 G/DL (33.0-37.0); MEAN CORPUSCULAR VOLUME 98.4 FL (80.0-94.0); MEAN PLATELET VOLUME 10.4 FL (7.4-10.4); PLATELET COUNT 277 /CUMM (130-400); RBC DISTRIBUTION WIDTH 18.5 % (11.5-14.5); RED BLOOD CELL CT 3.02 /CUMM (4.70-6.10); WHITE BLOOD CELL COUNT 6.6 /CUMM (4.8-10.8)
[2017-08-20 05:38] LABS: PT 16.5 SEC (9.4-12.5); PTT 57 SEC (25-37)
[2017-08-20 06:26] VITALS: BP 120/70
--- NOTE | 2017-08-20 07:59 | PN- Housestaff ---
Ashley Stewart 08/20/17 0757: Subjective Follow-up For: -Altered mental status, possible toxic metabolic encephalopathy, improving ( slowly) -Acute Right abreu radiata infarct, probable cardioembolic -Acute Hypoxic Respiratory Failure, improving -Aspiration Pneumonia, on Ciprofloxacin -Large Left Pleural Effusion, improving -AFib with RVR, now in NSR s/p emergent cardioversion -Apical Thrombus s/p embolization -Ischemic CVA, infarct involving deep white matter of the right abreu radiata -History of Congestive heart Failure -Hypertension Tele-Events Since Last Visit: V-tach x 9 beats NSR mostly 70-80s Subjective: No overnight event. Patient was resting on bed with NGT in, with some spontaneous body twitchings. Not awake to my questions. No specific complaint. Review of Systems Constitutional: Reports: see HPI. Objective Last 24 Hrs of Vital Signs/I&O Vital Signs Date Time Temp Pulse Resp B/P B/P Pulse O2 O2 Flow FiO2 Mean Ox Delivery Rate 08/20 0626 99.2 81 23 120/70 95 08/20 0000 Room Air 08/19 2243 98.0 84 20 100/50 93 08/19 2236 86 124/58 08/19 1621 95 08/19 1400 98.9 89 20 102/64 95 08/19 0915 118/60 Intake & Output 08/20 0800 08/20 0000 08/19 1600 Intake Total 960 440 990 Output Total 450 750 Balance 510 440 240 Intake, IV 180 80 200 Intake, Oral 0 Intake, Tube 480 240 640 Feeding Intake, Tube 300 120 150 Irrigant Number 2 Bowel Movements Output, Urine 450 750 Patient 93.922 kg Weight Physical Exam General Appearance: sleeping Cardiovascular: Regular Rate Lungs: Clear to Auscultation, Normal Air Movement Abdomen: Soft, No Tenderness Extremities: Normal Pulses, BLE +1 edematous Current Medications: Current Medications Sig/Richard Start time Last Medication Dose Route Stop Time Status Admin Albuterol Sulfate 3 ML EVERY 4 HRS/AWAKE 08/15 1999 AC 08/19 INH 203 Aspirin 81 MG DAILY 08/17 1000 AC 08/19 PO 0915 Atorvastatin Calcium 80 MG 1700 08/16 1730 AC 08/19 PO 1544 Carvedilol 25 MG BID 08/11 1245 AC 08/19 PO 2236 Ciprofloxacin 500 MG BID 08/17 1215 AC 08/19 PO 08/21 1214 2236 Diphenhydramine HCl 50 MG Q4P PRN 08/17 0830 AC 08/19 IV 1323 Diphenhydramine HCl 1 CYN DAILY 08/10 2300 AC 08/19 TOP 0919 Docusate Sodium 100 MG DAILY NEEDED PRN 08/11 1230 AC PO Furosemide 40 MG DAILY 08/15 1000 AC 08/19 PO 0915 Glycerin 2 SPRAY Q2P PRN 08/11 0215 AC PO Heparin Sodium 3,756 UNIT ONCE ONE 08/20 0630 DC (Porcine) IV 08/20 0631 Heparin Sodium/ 25,000 UNIT Q24H 08/16 1045 AC 08/19 Dextrose IV 1545 Dextrose/Water 500 ML Pantoprazole Sodium 40 MG DAILY 08/15 1000 AC 08/19 IV 0915 Phosphate 250 MG PC AND AT BEDTIME 08/20 0900 AC PO Potassium Chloride 40 MEQ DAILY 08/16 1000 AC 08/19 PO 0915 Senna/Docusate Sodium 1 TAB BID PRN 08/11 1504 AC 08/18 PO 1009 Sodium Chloride 2 SPRAY Q4P PRN 08/18 1000 AC WENDI Last 24 Hrs of Lab/Zackery Results Last 24 Hrs of Labs/Mics: Laboratory Tests 08/20/17 0435: Anion Gap 6, Estimated GFR 54 L, BUN/Creatinine Ratio 33.8 H, PT 16.5 H, INR 1.51 H, APTT 57 H, CBC w Diff NO MAN DIFF REQ, RBC 3.02 L, MCV 98.4 H, MCH 32.2 H, MCHC 32.7 L, RDW 18.5 H, MPV 10.4, Gran % 59.2, Lymphocytes % 24.0, Monocytes % 7.7, Eosinophils % 8.8 H, Basophils % 0.3, Absolute Granulocytes 3.9, Absolute Lymphocytes 1.6, Absolute Monocytes 0.5, Absolute Eosinophils 0.6, Absolute Basophils 0 08/19/17 1825: APTT 60 H Assessment/Plan Assessment: 72-year-old male with history of CHF, hypertension, previous syncopal episode, presented with altered mental status and shortness of breath, initially being treated for AMS, aspiration pneumonia and RICHI and Left lower leg cellulitis, treated with Doxy, ceftriaxone, vancomycin, and was later with vancomycin and Ceftazidime. Patient had LP on 08/06/17 which was negative. - He was found to have left ventricle Apical thrombus in the echocardiogram, and mild left atrial dilatation, possible thrombus in the left atrial appendage, atrial septal aneurysm but no evidence of atrial shunt, mild mitral regurgitation and a small pericardial effusion among others (please see full echo report). He has been on IV heparin for anti-coagulation. -Patient was found to have paroxysmal atrial fibrillation with rapid ventricular response as well, underwent emergent cardioversion, and was placed on diltiazem drip converted to by mouth betablocker. He is on IV Heparin for anticoagulation. Cardiology following. 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 -For RICHI, nephrology has been on board as the patient had hypernatremia secondary to decreased free water intake which is now improving and the patient currently is on PO Lasix 40 mg twice a day, last follow up was on 08/10/17. -patient still has some warmth, redness and swelling of his left lower extremity , which is much better compared to his admitting presentation. But he continues to have generalized edema, partially explained by low albumin (1.9) and heart failure. -He also had complete opacification of left hemithorax which is now improving with aggressive PT, likely secondary to mucus plugging and atelectasis rather than aspiration. Patient is currently on ciprofloxacin. Eason catheter is still on, suggested by ID to remove. -Patient has had generalized rash, etiology still unknown. No mucosal involvement. -Details to be written in the transfer of care summary. -Consultations: ID, Cardio, nephro (last note 08/10), neuro (signed off) ---- Problem List -Altered mental status, possible toxic metabolic encephalopathy, improving ( slowly), however still confused and hard to wake up. -Acute Right abreu radiata infarct, probable cardioembolic -Acute Hypoxic Respiratory Failure, improving and currently breathing under room air. -Aspiration Pneumonia, on Ciprofloxacin day 7, pending discontinuation today. -Large Left Pleural Effusion, now small left pleural effusion persistent on CXR 08/18. will continue monitor. -AFib with RVR, now in NSR s/p emergent cardioversion. Will continue monitor on tele. -Apical Thrombus s/p embolization as above -Ischemic CVA, infarct involving deep white matter of the right abreu radiata -History of Congestive heart Failure, currently on Lasix 40mg PO, however being persistent on positive fluid balance, with stable pulmonary vascular congestion on CXR 08/18 without pulmonary edema. -Elevated Troponins, Likely demand ischemia. Currently resolved without signs of CP or acute EKG change. -Right lower extremity Cellulitis, resolved -Hypernatremia, currently under tube feeding of Jevity 1.2 (a major contributor of salt), with increased to 250cc free water flush today. Patient's overall appearance was not typical of anasarca with more prominent BLE edema. No signs of DI. Latest echo showed LV function of EF 50%. - Will obtain nephrology follow up - Will obtain nutritional follow up on tube feeding, -Transaminitis, resolved. Plan -Continue to monitor on telemetry -Supplemental O2, taper as tolerated -NGT / Eason Catheter in situ -Tube feeding had to be held due to risk of aspiration -TRC with Nebs/Mucomyst -Aggressive pulmonary toilet/ Chest PT -Heparin GGT to continue, given cardiac thrombus -Aspirin 81 mg PO Daily -Ciprofloxacin for aspirational pneumonia course completed 08/20. -Protonix 40 mg IV Daily -Start Lisinopril as BP allows (blood pressure was not running towards the lower side we will consider starting tomorrow) -Discontinued Lasix 40 mg p.o. daily for hypernatremia. -Atorvastatin 80 mg PO Daily -Continue meds: Carvedilol, Colace, Senna -Consults with Cardiology, ID, Nephrology (last note 08/10/17), Neurology (signed off), Vascular -F/U cultures & Sensitivites; NGTD -Daily INR, CBC, CMP -Pain control PRN -NPO, failed swallow eval, continue tube feeding -DVT PPx with ALPS -FULL CODE Problem List: 1. Altered mental state 2. Encephalopathy Pain Ratin Pain Location: NA Pain Goal: Remain pain free Pain Plan: see AP Tomorrow's Labs & Rationales: CBC/BEP/INR Tex Montiel MD 08/20/17 1413: Attending MD Review Statement Attending Statement Attending MD Statement: examined this patient, discuss w/resident/PA/PIGEON FANCIER, agreed w/resident/PA/PIGEON FANCIER, reviewed EMR data (avail), discussed with nursing, discussed with case mgmt, amended to note Attending Assessment/Plan: Patient seen and examined. Transferred out of the ICU yesterday. Chart reviewed. Currently resting comfortably not in any acute distress. He is very drowsy but easily arousable. He is able to answer questions correctly but with garbled speech. Obese commands correctly however does not respond to commands to open eyes or follow gaze although he does spontaneously open and close his eyes. There is no obvious facial paresis. Home Health Rn strength was weak in the left arm. He is unable to move upper extremities up against gravity. He is able to move lower extremities against gravity only. Laboratory data shows no leukocytosis. He developed anemia during this admission but levels have been stable. Creatinine level is stable. Remains hyponatremic with sodium of 148 and hyperchloremic with chloride of 109 Recommendations: -Patient's mental status appears to be improving. Recommend continuation of tube feeding for now. Will reassess in the next 24-48 hours for repeat swallow evaluation. If he continues to fail swallow evaluation will consider PEG feeding at that time. -He continues to be hypernatremic. Increase free water via the feeding tube. Follow-up with the nephrology service. -ID follow-up appreciated. Will monitor patient off antibiotic therapy. -Physical therapy consultation. Mobilize patient as tolerated. -Continue anticoagulation with IV heparin. If there are no plans for PEG tube placement will begin patient on NOAC therapy. -His right lower extremity lesion is stable. Vascular surgery consultation noted. We will continue to monitor. -Nursing staff reminded to continue aggressive pulmonary toileting due to his secretions.
--- NOTE | 2017-08-20 11:16 | PN- Infect Dx ---
Subjective Subjective: Afebrile without complaints. He is requiring straight cath protocol since removal of the Eason. Swallowing evaluation recommendations noted, with patient felt to be at high risk for aspiration. Objective Last 24 Hrs of Vital Signs/I&O Vital Signs Date Time Temp Pulse Resp B/P B/P Pulse O2 O2 Flow FiO2 Mean Ox Delivery Rate 08/20 0951 122/88 08/20 0825 95 Room Air 08/20 0626 99.2 81 23 120/70 95 08/20 0000 Room Air 08/19 2243 98.0 84 20 100/50 93 08/19 2236 86 124/58 08/19 1621 95 08/19 1400 98.9 89 20 102/64 95 Intake & Output 08/20 1600 08/20 0800 08/20 0000 Intake Total 960 440 Output Total 450 Balance 510 440 Intake, IV 180 80 Intake, Tube 480 240 Feeding Intake, Tube 300 120 Irrigant Output, Urine 450 Patient 207 lb Weight Physical Exam Other Physical Findings: He appears comfortable in no acute distress Skin macular rash improved Lungs scattered rhonchi bilaterally Heart regular rhythm with no murmur Extremities decreased edema all extremities; PICC in the right upper extremity with no inflammation at the site Results Last 24 Hours of Lab Results: Laboratory Tests 08/20 08/19 0435 1825 Chemistry Sodium (137 - 145 mmol/L) 148 H Potassium (3.5 - 5.1 mmol/L) 4.4 Chloride (98 - 107 mmol/L) 109 H Carbon Dioxide (22 - 30 mmol/L) 33 H Anion Gap (5 - 16) 6 BUN (9 - 20 mg/dL) 44 H Creatinine (0.7 - 1.2 mg/dL) 1.3 H Estimated GFR (>60 ml/min) 54 L BUN/Creatinine Ratio (7 - 25 %) 33.8 H Coagulation PT (9.4 - 12.5 SEC) 16.5 H INR (0.90 - 1.17) 1.51 H APTT (25 - 37 SEC) 57 H 60 H Hematology CBC w Diff NO MAN DIFF REQ WBC (4.8 - 10.8 /CUMM) 6.6 RBC (4.70 - 6.10 /CUMM) 3.02 L Hgb (14.0 - 18.0 G/DL) 9.7 L Hct (42 - 52 %) 29.7 L MCV (80.0 - 94.0 FL) 98.4 H MCH (27.0 - 31.0 PG) 32.2 H MCHC (33.0 - 37.0 G/DL) 32.7 L RDW (11.5 - 14.5 %) 18.5 H Plt Count (130 - 400 /CUMM) 277 MPV (7.4 - 10.4 FL) 10.4 Gran % (42.2 - 75.2 %) 59.2 Lymphocytes % (20.5 - 51.1 %) 24.0 Monocytes % (1.7 - 9.3 %) 7.7 Eosinophils % (0 - 5 %) 8.8 H Basophils % (0.0 - 2.0 %) 0.3 Absolute Granulocytes (1.4 - 6.5 /CUMM) 3.9 Absolute Lymphocytes (1.2 - 3.4 /CUMM) 1.6 Absolute Monocytes (0.10 - 0.60 /CUMM) 0.5 Absolute Eosinophils (0.0 - 0.7 /CUMM) 0.6 Absolute Basophils (0.0 - 0.2 /CUMM) 0 Last 24 Hours of Zackery Results: No new cultures Recent Imaging Studies: Chest x-ray August 18 reveals a persistent opacification at the left lung base with compressive atelectasis and a small effusion Assessment/Plan ID Impression: Doing well, with temperatures and white blood cell count remaining normal, on Ciprofloxacin now Day 7 of treatment for possible aspiration pneumonia. Suggestion: 1. Continue straight cath protocol 2. Further management with regard to nutrition per Medicine 3. Continue aggressive pulmonary toilet 4. Discontinue Ciprofloxacin and follow off antibiotics
--- NOTE | 2017-08-20 13:45 | PN- Pulmonary ---
Subjective HPI/Critical Care Issues: Afebrile without complaints. He is requiring straight cath protocol since removal of the Eason. Swallowing evaluation recommendations noted, with patient felt to be at high risk for aspiration. Objective Current Medications: Current Medications Sig/Richard Start time Last Medication Dose Route Stop Time Status Admin Albuterol Sulfate 3 ML EVERY 4 HRS/AWAKE 08/15 1999 AC 08/20 INH 1309 Aspirin 81 MG DAILY 08/17 1000 AC 08/20 PO 0950 Atorvastatin Calcium 80 MG 1700 08/16 1730 AC 08/19 PO 1544 Carvedilol 25 MG BID 08/11 1245 AC 08/20 PO 0951 Ciprofloxacin 500 MG BID 08/17 1215 AC 08/20 PO 08/21 1214 0950 Diphenhydramine HCl 50 MG Q4P PRN 08/17 0830 DC 08/19 IV 1323 Diphenhydramine HCl 1 CYN DAILY 08/10 2300 AC 08/20 TOP 1047 Docusate Sodium 100 MG DAILY NEEDED PRN 08/11 1230 AC PO Furosemide 40 MG DAILY 08/15 1000 AC 08/20 PO 0951 Glycerin 2 SPRAY Q2P PRN 08/11 0215 AC PO Heparin Sodium 3,756 UNIT ONCE ONE 08/20 0630 DC 08/20 (Porcine) IV 08/20 0631 0951 Heparin Sodium/ 25,000 UNIT Q24H 08/16 1045 AC 08/20 Dextrose IV 0951 Dextrose/Water 500 ML Pantoprazole Sodium 40 MG DAILY 08/15 1000 AC 08/20 IV 0951 Phosphate 250 MG PC AND AT BEDTIME 08/20 0900 AC 08/20 PO 1323 Potassium Chloride 40 MEQ DAILY 08/16 1000 AC 08/20 PO 0951 Senna/Docusate Sodium 1 TAB BID PRN 08/11 1504 AC 08/18 PO 1009 Sodium Chloride 2 SPRAY Q4P PRN 08/18 1000 AC WENDI Vital Signs & I&O Last 24 Hrs of Vitals and I&O: Vital Signs Date Time Temp Pulse Resp B/P B/P Pulse O2 O2 Flow FiO2 Mean Ox Delivery Rate 08/20 0951 122/88 08/20 0825 95 Room Air 08/20 0626 99.2 81 23 120/70 95 08/20 0000 Room Air 08/19 2243 98.0 84 20 100/50 93 08/19 2236 86 124/58 03/18 1621 95 08/19 1400 98.9 89 20 102/64 95 Intake & Output 08/20 1600 08/20 0800 08/20 0000 Intake Total 960 440 Output Total 450 Balance 510 440 Intake, IV 180 80 Intake, Tube 480 240 Feeding Intake, Tube 300 120 Irrigant Output, Urine 450 Patient 207 lb Weight Impression/Plan Impression/Plan Impression/Plan: General Appearance: well developed/nourished, no apparent distress, awake, Head: atraumatic, normal appearance Ears, Nose, Throat: normal pharynx Respiratory: decreased breath sounds on the l. side Cardiovascular: regular rate/rhythm Gastrointestinal: soft, non-tender Skin: rash, erythematous and over back, abdomen and thighs. he has multiple excorications on legs. l. leg is more erythematous than right. Left sided hemiperesis This is a 72-year-old gentleman with history of diabetes, previous heart failure diastolic, previous syncope, came into the hospital as was brought in from his home as his landlord found him on the floor. (History on admission Patient apparently had had a previous fall in the snow as well.In the emergency room he was noted to have significant atrial fibrillation with tachycardia and he was hypotensive and hemodynamically unstable and had to have emergent cardioversion as his blood pressure was slow and he was unstable. Per history he has been non -compliant and has not seen any physicians in the recent past., Initially pt was conversant but slightly confused and since arriving in the ed he became less responsive and agitated requiring ativan and now appears to be worse with worsening mental status, with no fever (Apparently was lucid when he came in and he did not have any temperature and he was not complaining of a headache). Subsequently he became more confused and had to require large doses of Ativan as he was cardioverted emergently by Dr. Hitchcock). ISSUES * Slow improvement in mental status, now with stroke with left sided hemiperesis * Resolved Left lung collapse due to mucus plug * Small effusion stable s/p diuresis and improved * PAFIB in sinus s/p electrical cardioversion due to hemodynamic instablility was anticoagulated with heparin and transitioned to warfarin. Pt had an intraventricular clot/ now s/p NOELLE showing no further clot * Resolving Total body fluid overload with edema with bilateral pleural effusion , atelectasis, clinical evidence suggestive of systolic and diastolic heart failure, with resolved congested liver * Resolved Type II ID versus Acute coronary syndrome followed by cardio * Chronic kidney disease with acute renal insufficiency, appears to be improving * No DVT/ No sig arterial ischemia * Previous history of hypertension hyperlipidemia and medical noncompliance * Lower ext chronic venostasis * REsolved thrombocytopenia * Maculopapular rash * 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
[2017-08-20 13:49] LABS: PTT 84 SEC (25-37)
[2017-08-20 14:59] VITALS: BP 118/70
--- NOTE | 2017-08-20 17:04 | PN- Nephrology ---
Assessment/Plan Nephrology Assessment: Hypernatremia likely related to salt balance. He is getting Jevity 1.2 (58 mEq Na 47 mEq K) and is on lasix IV (typical urine Na around 60-80). I's /O's have been about equal (2L in 2L out) so sodium would be unexpected to change. There is a set of Urine lytes from August 02 (volume/diuretic status unknown) with U Na of 9 which suggests his body thinks he is volume depleted. (This can also be seen with CHF - a diagnosis which he carries). ECHO done this hospitalization shows an EF of 55% with mild Pulm HTN with RV pressure of 40. He does have some LE edema but his intravascular volume appears okay if not low (dry mucous membranes). I agree with holding lasix for now and giving free water (p.o. is fine). I am not sure the cause of LE edema but it does not appear to be hawkins to left sided heart failure (could f/u CXR in a few days). Could check U Lytes Osm to see how kidneys are responding off diuretics. Discussed with medical team. Christopher Stanley MD. Suggestion: . Subjective Subjective: Please see Dr. Guerrero's consultation 08/03 for prior details. Asked to resee patient for hypernatremia. Objective Vital Signs and I&Os Elderly M in bed with NG tube feed in place ENT membranes dry Neck neg JVD Lungs clear Cor RRR Abd soft N/T tr-1+sacral edema 2-3+LE edema Results Pertinent Lab Results: 148 / 109 / 44 / 4.4 / 33 / 1.3\
[2017-08-20 21:23] VITALS: BP 132/60
[2017-08-21 01:58] LABS: PTT 104 SEC (25-37)
[2017-08-21 05:48] VITALS: BP 120/52
--- NOTE | 2017-08-21 08:07 | PN- Housestaff ---
Ashley Stewart 08/21/17 0747: Subjective Follow-up For: -Altered mental status, possible toxic metabolic encephalopathy, improving ( slowly) -Acute Right abreu radiata infarct, probable cardioembolic -Acute Hypoxic Respiratory Failure, improving -Aspiration Pneumonia, on Ciprofloxacin -Large Left Pleural Effusion, improving -AFib with RVR, now in NSR s/p emergent cardioversion -Apical Thrombus s/p embolization -Ischemic CVA, infarct involving deep white matter of the right abreu radiata -History of Congestive heart Failure -Hypertension Tele-Events Since Last Visit: Mostly NSR in 70-80s, SVT for 12 beats peaked at HR 156 and reverted back to NSR Subjective: No overnight event. Patient was resting on bed under RA with NGT in place. Still twitched episodically during sleep. Woke up briefly to words and followed command of squeezing hands then fell asleep again. Review of Systems Constitutional: Reports: see HPI. Objective Last 24 Hrs of Vital Signs/I&O Vital Signs Date Time Temp Pulse Resp B/P B/P Pulse O2 O2 Flow FiO2 Mean Ox Delivery Rate 08/21 0548 97.9 75 16 120/52 95 Room Air 08/20 2135 Room Air 08/20 2123 99.1 84 18 132/60 91 Room Air 08/20 2122 84 132/60 08/20 1650 93 Room Air 08/20 1600 Room Air 08/20 1459 98.3 72 22 118/70 93 Room Air 08/20 0951 122/88 08/20 0825 95 Room Air Intake & Output 08/21 0800 08/21 0000 08/20 1600 Intake Total 705 017 2964 Output Total 232 317 0382 Balance 780 360 205 Intake, IV 100 265 Intake, Oral 0 Intake, Tube 480 160 640 Feeding Intake, Tube 500 200 350 Irrigant Number 1 Bowel Movements Output, Urine 306 344 1272 Physical Exam General Appearance: No Acute Distress, sleeping under RA Cardiovascular: Regular Rate Lungs: Clear to Auscultation, Normal Air Movement Abdomen: Soft, No Tenderness Extremities: BLE edematous, with some healed skin lesions. No cyanosis. Current Medications: Current Medications Sig/Richard Start time Last Medication Dose Route Stop Time Status Admin Albuterol Sulfate 3 ML EVERY 4 HRS/AWAKE 08/15 1999 AC 08/20 INH 205 Aspirin 81 MG DAILY 03/16 1000 AC 08/20 PO 0950 Atorvastatin Calcium 80 MG 1700 08/16 1730 AC 08/20 PO 1842 Carvedilol 25 MG BID 08/11 1245 AC 08/20 PO 2122 Ciprofloxacin 500 MG BID 08/17 1215 DC 08/20 PO 08/21 1214 0950 Diphenhydramine HCl 50 MG Q4P PRN 08/17 0830 DC 08/19 IV 1323 Diphenhydramine HCl 1 CYN DAILY 08/10 2300 AC 08/20 TOP 1047 Docusate Sodium 100 MG DAILY NEEDED PRN 08/11 1230 AC PO Furosemide 40 MG DAILY 08/15 1000 DC 08/20 PO 0951 Glycerin 2 SPRAY Q2P PRN 08/11 0215 AC 08/20 PO 1841 Heparin Sodium/ 25,000 UNIT Q24H 08/16 1045 AC 08/21 Dextrose IV 0440 Dextrose/Water 500 ML Pantoprazole Sodium 40 MG DAILY 08/15 1000 AC 08/20 IV 0951 Phosphate 250 MG PC AND AT BEDTIME 08/20 0900 AC 08/20 PO 2122 Potassium Chloride 40 MEQ DAILY 08/16 1000 AC 08/20 PO 0951 Senna/Docusate Sodium 1 TAB BID PRN 08/11 1504 AC 08/18 PO 1009 Sodium Chloride 2 SPRAY Q4P PRN 08/18 1000 AC WENDI Last 24 Hrs of Lab/Zackery Results Last 24 Hrs of Labs/Mics: Laboratory Tests 08/21/17 0650: Sodium Pending, Potassium Pending, Chloride Pending, Carbon Dioxide Pending, Anion Gap Pending, BUN Pending, Creatinine Pending, BUN/Creatinine Ratio Pending , Serum Osmolality 313 H, PT Pending, INR Pending, CBC w Diff Pending, WBC Pending, RBC Pending, Hgb Pending, Hct Pending, MCV Pending, MCH Pending, MCHC Pending, RDW Pending, Plt Count Pending, MPV Pending 08/21/17 0100: APTT 104 *H 08/20/17 1245: APTT 84 H Assessment/Plan Assessment: 72-year-old male with history of CHF, hypertension, previous syncopal episode, presented with altered mental status and shortness of breath, initially being treated for AMS, aspiration pneumonia and RICHI and Left lower leg cellulitis, treated with Doxy, ceftriaxone, vancomycin, and was later with vancomycin and Ceftazidime. Patient had LP on 08/06/17 which was negative. - He was found to have left ventricle Apical thrombus in the echocardiogram, and mild left atrial dilatation, possible thrombus in the left atrial appendage, atrial septal aneurysm but no evidence of atrial shunt, mild mitral regurgitation and a small pericardial effusion among others (please see full echo report). He has been on IV heparin for anti-coagulation. -Patient was found to have paroxysmal atrial fibrillation with rapid ventricular response as well, underwent emergent cardioversion, and was placed on diltiazem drip converted to by mouth betablocker. He is on IV Heparin for anticoagulation. Cardiology following. -He also had left hemiparesis and was found to have subcortical stroke secondary to an emboli from left ventricle thrombus, for which neurology suggested Lipitor 80 mg controlling blood pressure and no need for MRI and has signed off. -For RICHI, nephrology has been on board as the patient had hypernatremia secondary to decreased free water intake which is now improving. -patient still has some warmth, redness and swelling of his left lower extremity , which is much better compared to his admitting presentation. No sign of general anasarca -He also had complete opacification of left hemithorax which is now improving with aggressive PT, likely secondary to mucus plugging and atelectasis rather than aspiration. Patient completed the course of ABx for aspirational pneumonia Eason catheter removed. ---- Problem List -Altered mental status, possible toxic metabolic encephalopathy, improving ( slowly), however still confused and hard to wake up. -Acute Right abreu radiata infarct, probable cardioembolic -Acute Hypoxic Respiratory Failure, improving and currently breathing under room air. -Aspiration Pneumonia, completed course of ABx treatment. -Large Left Pleural Effusion, now small left pleural effusion persistent on CXR 08/18. will continue monitor. -AFib with RVR, now in NSR s/p emergent cardioversion. Will continue monitor on tele. -Apical Thrombus s/p embolization as above -Ischemic CVA, infarct involving deep white matter of the right abreu radiata -History of Congestive heart Failure, currently on Lasix 40mg PO, however being persistent on positive fluid balance, with stable pulmonary vascular congestion on CXR 08/18 without pulmonary edema. -Elevated Troponins, Likely demand ischemia. Currently resolved without signs of CP or acute EKG change. -Right lower extremity Cellulitis, resolved -Hypernatremia, currently under tube feeding of Jevity 1.2 (a major contributor of salt), with increased to 250cc free water flush today. Patient's overall appearance was not typical of anasarca with more prominent BLE edema. No signs of DI. Latest echo showed LV function of EF 50%. -Transaminitis, resolved. Plan -Continue to monitor on telemetry -Supplemental O2, however patient had been breathing under RA without desatting. -NGT in situ -Tube feeding had to be held due to risk of aspiration -TRC with Nebs/Mucomyst -Aggressive pulmonary toilet/ Chest PT -Heparin GGT to continue, given cardiac thrombus -Aspirin 81 mg PO Daily -Ciprofloxacin for aspirational pneumonia course completed 08/20. -Protonix 40 mg IV Daily -Start Lisinopril as BP allows (blood pressure was not running towards the lower side we will consider starting tomorrow) -Discontinued Lasix 40 mg p.o. daily for hypernatremia. Pending restart once hypernatremia gets improved. -pending nutritional f/u on water flush speed for tube feeding. -Atorvastatin 80 mg PO Daily -Continue meds: Carvedilol, Colace, Senna -Consults with Cardiology, ID, Nephrology, Neurology (signed off), Vascular -F/U cultures & Sensitivites; NGTD -Daily INR, CBC, CMP -Pain control PRN -NPO, failed swallow eval, continued tube feeding -DVT PPx with ALPS -FULL CODE Problem List: 1. Encephalopathy 2. Apical mural thrombus 3. Altered mental state Pain Ratin Pain Location: NA Pain Goal: Remain pain free Pain Plan: see AP Tomorrow's Labs & Rationales: CBC/BEP Tex Montiel MD 08/21/17 1112: Attending MD Review Statement Attending Statement Attending MD Statement: examined this patient, discuss w/resident/PA/HEALTH CLUB MANAGER, agreed w/resident/PA/HEALTH CLUB MANAGER, reviewed EMR data (avail), discussed with nursing, discussed with case mgmt, amended to note Attending Assessment/Plan: Patient seen and examined. No issues overnight reported by nursing staff. His mental status is much better this morning. He is more alert and oriented. Answering questions appropriately. Following commands with no focal deficits. Sodium level has returned to normal limits after discontinuing Lasix yesterday and increasing his free water intake via his NG tube. He is still lethargic today. Continues to have congested upper airway sounds today. Would recommend monitor patient overnight. His mental status continues to improve he should have repeat swallow evaluation tomorrow with discontinuation of his NG tube completely if he does well. His encephalopathy appears to have been secondary to his hypernatremia which was likely induced by inadequate water intake. Overnight on telemetry he had very brief episode of ventricular ectopy. Currently remains in normal sinus rhythm. He is on a beta-dick therapy. Electrolytes are within normal limits. Please discuss with the cardiology service, regarding need for further intervention and further telemetry monitoring Continue anticoagulation with IV heparin for now. If he no longer requires tube feeding, begin patient on and NOAC. No need for further diuresis. On examination he has trace pitting edema in lower extremities. He has no evidence of anasarca. No need for further diuresis. On examination he has trace pitting edema in lower extremities. He has no evidence of anasarca.
[2017-08-21 08:23] LABS: ABSOLUTE BASOPHIL COUNT 0 /CUMM (0.0-0.2); ABSOLUTE EOSINOPHIL COUNT 0.7 /CUMM (0.0-0.7); ABSOLUTE GRANULOCYTE CT 4.1 /CUMM (1.4-6.5); ABSOLUTE LYMPH COUNT 1.6 /CUMM (1.2-3.4); ABSOLUTE MONOCYTE COUNT 0.7 /CUMM (0.10-0.60); BASOPHIL % 0.1 % (0.0-2.0); EOSINOPHIL % 10.4 % (0-5); GRANULOCYTE % 57.4 % (42.2-75.2); HEMATOCRIT 29.7 % (42-52); MEAN CORPUSCULAR HGB 32.4 PG (27.0-31.0); MEAN CORPUSCULAR HGB CONC 33.1 G/DL (33.0-37.0); MEAN PLATELET VOLUME 10.4 FL (7.4-10.4); PLATELET COUNT 276 /CUMM (130-400); RBC DISTRIBUTION WIDTH 18.9 % (11.5-14.5); RED BLOOD CELL CT 3.03 /CUMM (4.70-6.10); WHITE BLOOD CELL COUNT 7.1 /CUMM (4.8-10.8)
[2017-08-21 08:44] LABS: PT 15.4 SEC (9.4-12.5)
[2017-08-21 10:52] LABS: PTT 53 SEC (25-37)
[2017-08-21 15:00] VITALS: BP 116/60
[2017-08-21 16:19] LABS: PTT 110 SEC (25-37)
--- NOTE | 2017-08-21 16:36 | PN- Pulmonary ---
Subjective HPI/Critical Care Issues: No overnight event. Patient was resting on bed under RA with NGT in place. Still twitched episodically during sleep. Objective Current Medications: Current Medications Sig/Richard Start time Last Medication Dose Route Stop Time Status Admin Albuterol Sulfate 3 ML EVERY 4 HRS/AWAKE 08/14 2000 AC 08/21 INH 1205 Aspirin 81 MG DAILY 08/17 1000 AC 08/21 PO 0754 Atorvastatin Calcium 80 MG 1700 08/16 1730 AC 08/20 PO 1842 Carvedilol 25 MG BID 08/11 1245 AC 08/21 PO 0754 Diphenhydramine HCl 1 CYN DAILY 08/10 2300 AC 08/21 TOP 0754 Docusate Sodium 100 MG DAILY NEEDED PRN 08/11 1230 AC PO Glycerin 2 SPRAY Q2P PRN 08/11 0215 AC 08/20 PO 1841 Heparin Sodium 3,800 UNIT ONCE ONE 08/21 1330 DC 08/21 (Porcine) IV 08/21 1331 1345 Heparin Sodium/ 25,000 UNIT Q24H 08/16 1045 AC 08/21 Dextrose IV 0440 Dextrose/Water 500 ML Pantoprazole Sodium 40 MG DAILY 08/15 1000 AC 08/21 IV 0754 Phosphate 250 MG PC AND AT BEDTIME 08/20 0900 DC 08/21 PO 0754 Potassium Chloride 40 MEQ DAILY 08/16 1000 AC 08/21 PO 0754 Senna/Docusate Sodium 1 TAB BID PRN 08/11 1504 AC 08/18 PO 1009 Sodium Chloride 2 SPRAY Q4P PRN 08/18 1000 AC WENDI Vital Signs & I&O Last 24 Hrs of Vitals and I&O: Vital Signs Date Time Temp Pulse Resp B/P B/P Pulse O2 O2 Flow FiO2 Mean Ox Delivery Rate 08/21 1500 98.7 80 20 116/60 91 Room Air 08/21 0800 94 Room Air 08/21 0754 75 120/52 08/21 0548 97.9 75 16 120/52 95 Room Air 08/20 2135 Room Air 08/20 2122 99.1 84 18 132/60 91 Room Air 08/20 2122 84 132/60 08/20 1650 93 Room Air Intake & Output 08/21 1600 08/21 0800 08/21 0000 Intake Total 980 460 Output Total 200 100 Balance 780 360 Intake, IV 100 Intake, Tube 480 160 Feeding Intake, Tube 500 200 Irrigant Output, Urine 200 100 Impression/Plan Impression/Plan Impression/Plan: Impression/Plan Impression/Plan: General Appearance: well developed/nourished, no apparent distress, awake, Head: atraumatic, normal appearance Ears, Nose, Throat: normal pharynx Respiratory: decreased breath sounds on the l. side Cardiovascular: regular rate/rhythm Gastrointestinal: soft, non-tender Skin: rash, erythematous and over back, abdomen and thighs. he has multiple excorications on legs. l. leg is more erythematous than right. Left sided hemiperesis This is a 72-year-old gentleman with history of diabetes, previous heart failure diastolic, previous syncope, came into the hospital as was brought in from his home as his landlord found him on the floor. (History on admission Patient apparently had had a previous fall in the snow as well.In the emergency room he was noted to have significant atrial fibrillation with tachycardia and he was hypotensive and hemodynamically unstable and had to have emergent cardioversion as his blood pressure was slow and he was unstable. Per history he has been non -compliant and has not seen any physicians in the recent past., Initially pt was conversant but slightly confused and since arriving in the ed he became less responsive and agitated requiring ativan and now appears to be worse with worsening mental status, with no fever (Apparently was lucid when he came in and he did not have any temperature and he was not complaining of a headache). Subsequently he became more confused and had to require large doses of Ativan as he was cardioverted emergently by Dr. Hitchcock). ISSUES Slow improvement in mental status, now with stroke with left sided hemiperesis Resolved Left lung collapse due to mucus plug Small effusion stable s/p diuresis and improved PAFIB in sinus s/p electrical cardioversion due to hemodynamic instablility was anticoagulated with heparin and transitioned to warfarin. 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
[2017-08-21 22:00] VITALS: BP 122/60
[2017-08-21 22:48] LABS: PTT 46 SEC (25-37)
--- NOTE | 2017-08-21 23:20 | PN- Cardiology ---
Subjective Subjective: * No specific complaints. * speech remains limited to a couple words at a time and his left arm continues to have limited strength and range of motion * sinus rhythm Objective Vital Signs and I&Os Vital Signs Date Time Temp Pulse Resp B/P B/P Pulse O2 O2 Flow FiO2 Mean Ox Delivery Rate 08/21 2224 94 Room Air 08/21 2200 99.0 84 22 122/60 94 Room Air 08/21 2111 84 122/60 08/21 1615 91 Room Air 08/21 1500 98.7 80 20 116/60 91 Room Air 08/21 0800 94 Room Air 08/21 0754 75 120/52 08/21 0548 97.9 75 16 120/52 95 Room Air Intake & Output 08/21 1600 08/21 0800 08/21 0000 08/20 1600 08/20 0800 08/20 0000 Intake Total 1440 604 419 8646 960 440 Output Total 800 872 692 9166 450 Balance 640 780 360 205 510 440 Intake, IV 300 100 265 180 80 Intake, Oral 0 Intake, Tube 640 480 160 640 480 240 Feeding Intake, Tube 500 500 200 350 300 120 Irrigant Number 2 1 Bowel Movements Output, Urine 800 783 159 1478 450 Patient 207 lb Weight Physical Exam: General: WD/obese; alert and responsive Neck: no JVD, no carotid bruit Heart: RRR, no murmur Lungs: clear bilaterally Extremities: 1+ bilateral pedal edema with improved erythema Neuro: decreased movement of left arm and hand Assessment/Plan Assessment/Plan * This patient continues to have some difficulty speaking but otherwise appears alert and appropriately responsive. He does have decreased movement of his left arm consistent with a CVA which is certainly a possibility considering his initial presentation in atrial fibrillation. Begin Eliquis at 5mg BID for stroke prophylaxis in the setting of paroxysmal atrial fibrillation. * This patient had a rise in cardiac enzymes consistent with a type 2 MS upon initial presentation. He has no chest discomfort. Continue aspirin at 81mg daily after Eliquis started and continue a statin and coreg. * Some pulmonary vascular congestion. Begin Lasix 40mg daily. Continue telemetry? Yes
[2017-08-22 05:16] LABS: ABSOLUTE BASOPHIL COUNT 0 /CUMM (0.0-0.2); ABSOLUTE EOSINOPHIL COUNT 0.7 /CUMM (0.0-0.7); ABSOLUTE GRANULOCYTE CT 3.6 /CUMM (1.4-6.5); ABSOLUTE LYMPH COUNT 1.5 /CUMM (1.2-3.4); ABSOLUTE MONOCYTE COUNT 0.6 /CUMM (0.10-0.60); BASOPHIL % 0.4 % (0.0-2.0); EOSINOPHIL % 11.4 % (0-5); GRANULOCYTE % 55.3 % (42.2-75.2); HEMATOCRIT 28.2 % (42-52); MEAN CORPUSCULAR HGB 32.8 PG (27.0-31.0); MEAN CORPUSCULAR HGB CONC 33.3 G/DL (33.0-37.0); MEAN CORPUSCULAR VOLUME 98.3 FL (80.0-94.0); MEAN PLATELET VOLUME 9.2 FL (7.4-10.4); PLATELET COUNT 269 /CUMM (130-400); RBC DISTRIBUTION WIDTH 18.7 % (11.5-14.5); RED BLOOD CELL CT 2.87 /CUMM (4.70-6.10); WHITE BLOOD CELL COUNT 6.5 /CUMM (4.8-10.8)
[2017-08-22 05:24] LABS: PT 15.1 SEC (9.4-12.5)
[2017-08-22 05:26] LABS: PTT 71 SEC (25-37)
[2017-08-22 07:18] VITALS: BP 122/66
--- NOTE | 2017-08-22 07:35 | PN- Housestaff ---
Ashley Stewart 08/22/17 0734: Subjective Follow-up For: -Altered mental status, possible toxic metabolic encephalopathy, improving ( slowly) -Acute Right abreu radiata infarct, probable cardioembolic -Acute Hypoxic Respiratory Failure, improving -Aspiration Pneumonia, on Ciprofloxacin -Large Left Pleural Effusion, improving -AFib with RVR, now in NSR s/p emergent cardioversion -Apical Thrombus s/p embolization -Ischemic CVA, infarct involving deep white matter of the right abreu radiata -History of Congestive heart Failure -Hypertension Tele-Events Since Last Visit: NSR in 80s Subjective: No overnight event. Patient appeared to be more spirited today and conversational, much improved from previous days. Acknowledged that he will have a swallow eval today. Review of Systems Constitutional: Reports: see HPI. Objective Last 24 Hrs of Vital Signs/I&O Vital Signs Date Time Temp Pulse Resp B/P B/P Pulse O2 O2 Flow FiO2 Mean Ox Delivery Rate 08/22 0913 74 124/64 08/22 0838 94 Room Air Room Air 08/22 0718 98.7 85 20 122/66 95 Room Air 08/21 2224 94 Room Air 08/21 2200 99.0 84 22 122/60 94 Room Air 08/21 2111 84 122/60 08/21 1615 91 Room Air 08/21 1500 98.7 80 20 116/60 91 Room Air Intake & Output 08/22 1600 08/22 0800 08/22 0000 Intake Total 1388.4 Output Total Balance 1388.4 Intake, IV 178.4 Intake, Oral 0 Intake, Tube 640 Feeding Intake, Tube 570 Irrigant Number 0 Bowel Movements Patient 89.811 kg Weight Weight Bed scale Measurement Method Physical Exam General Appearance: Alert, Oriented X3, Cooperative, No Acute Distress Cardiovascular: Regular Rate Lungs: Clear to Auscultation, Normal Air Movement Abdomen: Normal Bowel Sounds, Soft, No Tenderness Neurological: Normal Speech Extremities: Normal Pulses, BLE edematous-like appearance however not really pitting or firm to press on. Current Medications: Current Medications Sig/Richard Start time Last Medication Dose Route Stop Time Status Admin Albuterol Sulfate 3 ML EVERY 4 HRS/AWAKE 08/15 1999 AC 08/22 INH 0836 Aspirin 81 MG DAILY 08/17 1000 AC 08/22 PO 0913 Atorvastatin Calcium 80 MG 1700 08/16 1730 AC 08/21 PO 1638 Carvedilol 25 MG BID 08/11 1245 AC 08/22 PO 0913 Chlorhexidine 10 ML TID 08/21 1814 AC 08/22 Gluconate PO 0913 Diphenhydramine HCl 1 CYN DAILY 08/10 2300 DC 08/21 TOP 0754 Docusate Sodium 100 MG DAILY NEEDED PRN 08/11 1230 AC PO Glycerin 2 SPRAY Q2P PRN 08/11 0215 AC 08/20 PO 1841 Heparin Sodium 5,000 UNIT .STK-MED ONE 08/21 2301 DC (Porcine) IV 08/21 2302 Heparin Sodium 3,600 UNIT BOLUS ONE 08/21 2300 DC 08/21 (Porcine) IV 08/21 2301 2355 Heparin Sodium 5,000 UNIT .STK-MED ONE 08/21 1344 DC (Porcine) IV 08/21 1345 Heparin Sodium 3,800 UNIT ONCE ONE 08/21 1330 DC 08/21 (Porcine) IV 08/21 1331 1345 Heparin Sodium/ 25,000 UNIT Q24H 08/16 1045 AC 08/21 Dextrose IV 2113 Dextrose/Water 500 ML Loratadine 10 MG DAILY 08/21 1813 AC 08/22 PO 0913 Pantoprazole Sodium 40 MG DAILY 08/15 1000 AC 08/22 IV 0914 Potassium Chloride 40 MEQ DAILY 08/16 1000 AC 08/22 PO 0914 Senna/Docusate Sodium 1 TAB BID PRN 08/11 1504 AC 08/18 PO 1009 Sodium Chloride 2 SPRAY Q4P PRN 08/18 1000 AC WENDI Last 24 Hrs of Lab/Zackery Results Last 24 Hrs of Labs/Mics: Laboratory Tests 08/22/17 0450: PT 15.1 H, INR 1.38 H 08/22/17 0450: Anion Gap 3 L, Estimated GFR > 60, BUN/Creatinine Ratio 31.0 H, APTT 71 H, CBC w Diff NO MAN DIFF REQ, RBC 2.87 L, MCV 98.3 H, MCH 32.8 H, MCHC 33.3, RDW 18.7 H, MPV 9.2, Gran % 55.3, Lymphocytes % 23.6, Monocytes % 9.3, Eosinophils % 11.4 H, Basophils % 0.4, Absolute Granulocytes 3.6, Absolute Lymphocytes 1.5, Absolute Monocytes 0.6, Absolute Eosinophils 0.7, Absolute Basophils 0 08/21/17 2130: APTT 46 H 08/21/17 1530: APTT 110 *H Assessment/Plan Assessment: 72-year-old male with history of CHF, hypertension, previous syncopal episode, presented with altered mental status and shortness of breath, initially being treated for AMS, aspiration pneumonia and RICHI and Left lower leg cellulitis, treated with Doxy, ceftriaxone, vancomycin, and was later with vancomycin and Ceftazidime. Patient had LP on 08/06/17 which was negative. - He was found to have left ventricle Apical thrombus in the echocardiogram, and mild left atrial dilatation, possible thrombus in the left atrial appendage, atrial septal aneurysm but no evidence of atrial shunt, mild mitral regurgitation and a small pericardial effusion among others (please see full echo report). He has been on IV heparin for anti-coagulation. -Patient was found to have paroxysmal atrial fibrillation with rapid ventricular response as well, underwent emergent cardioversion, and was placed on diltiazem drip converted to by mouth betablocker. He is on IV Heparin for anticoagulation. Cardiology following. -He also had left hemiparesis and was found to have subcortical stroke secondary to an emboli from left ventricle thrombus, for which neurology suggested Lipitor 80 mg controlling blood pressure and no need for MRI and has signed off. -For RICHI, nephrology has been on board as the patient had hypernatremia secondary to decreased free water intake which is now improving. -patient still has some warmth, redness and swelling of his left lower extremity , which is much better compared to his admitting presentation. No sign of general anasarca -He also had complete opacification of left hemithorax which is now improving with aggressive PT, likely secondary to mucus plugging and atelectasis rather than aspiration. Patient completed the course of ABx for aspirational pneumonia Eason catheter removed. ---- Problem List -Altered mental status, possible toxic metabolic encephalopathy, improving ( slowly), however still confused and hard to wake up. -Acute Right abreu radiata infarct, probable cardioembolic -Acute Hypoxic Respiratory Failure, improving and currently breathing under room air. -Aspiration Pneumonia, completed course of ABx treatment. -Large Left Pleural Effusion, now small left pleural effusion persistent on CXR 08/18. will continue monitor. -AFib with RVR, now in NSR s/p emergent cardioversion. Will continue monitor on tele. -Apical Thrombus s/p embolization as above -Ischemic CVA, infarct involving deep white matter of the right abreu radiata -History of Congestive heart Failure, currently on Lasix 40mg PO, however being persistent on positive fluid balance, with stable pulmonary vascular congestion on CXR 08/18 without pulmonary edema. -Elevated Troponins, Likely demand ischemia. Currently resolved without signs of CP or acute EKG change. -Right lower extremity Cellulitis, resolved -Hypernatremia, currently under tube feeding of Jevity 1.2 (a major contributor of salt), with increased to 250cc free water flush today. Patient's overall appearance was not typical of anasarca with more prominent BLE edema. No signs of DI. Latest echo showed LV function of EF 50%. -Transaminitis, resolved. Plan -Continue to monitor on telemetry -Supplemental O2, however patient had been breathing under RA without desatting. -NGT in situ, pending removal per swallow eval. -Tube feeding had to be held due to risk of aspiration -TRC with Nebs/Mucomyst -Aggressive pulmonary toilet/ Chest PT -Heparin GGT to continue, given cardiac thrombus, however will switch to eliquis once cleared by swallow and no need for PEG tube placement. -Aspirin 81 mg PO Daily -Ciprofloxacin for aspirational pneumonia course completed 08/20. -Protonix 40 mg IV Daily -Start Lisinopril as BP allows (blood pressure was not running towards the lower side we will consider starting tomorrow) -Discontinued Lasix 40 mg p.o. daily for hypernatremia. Pending restart once hypernatremia gets improved. Na was 146 on latest lab. - Appreciated nutritional f/u. WIll continue free water flush at 250cc. -Atorvastatin 80 mg PO Daily -Continue meds: Carvedilol, Colace, Senna -Consults with Cardiology, ID, Nephrology, Neurology (signed off), Vascular -F/U cultures & Sensitivites; NGTD -Daily INR, CBC, CMP -Pain control PRN -NPO, failed swallow eval, continued tube feeding -DVT PPx with ALPS -FULL CODE Problem List: 1. Altered mental state Pain Ratin Pain Location: NA Pain Goal: Remain pain free Pain Plan: see AP Tomorrow's Labs & Rationales: CBC/BEP/INR Dinesh KOEHLERTex 08/22/17 1500: Attending MD Review Statement Attending Statement Attending MD Statement: examined this patient, discuss w/resident/PA/FOOD SERVICE MANAGER, agreed w/resident/PA/FOOD SERVICE MANAGER, reviewed EMR data (avail), discussed with nursing, discussed with case mgmt, amended to note Attending Assessment/Plan: Patient seen and examined. He is doing much better this morning. He is alert. He is oriented. He is not in any acute distress. Bedside swallow evaluation was done today and recommendations are to proceed with a modified barium swallow. Hopefully he will do well enough for his feeding tube to be discontinued completely and oral feedings will be resumed. On examination he does not appear volume overloaded. Recommendations: -Follow-up recommendations of modified barium swallow. -Physical therapy consultation to mobilize patient. He will require STIR upon discharge. -Continue to monitor patient off antibiotic therapy. -Repeat serum chemistry in a.m. Repeat CBC only if there is a change in his clinical status. -Discontinue telemetry. Anticipate discharge in next 24-48 hours if his diet is able to be advanced. Once he is started on oral feeding we will begin anticoagulation therapy with Eliquis
--- NOTE | 2017-08-22 09:50 | PN- Infect Dx ---
Subjective Subjective: Afebrile without complaints Objective Last 24 Hrs of Vital Signs/I&O Vital Signs Date Time Temp Pulse Resp B/P B/P Pulse O2 O2 Flow FiO2 Mean Ox Delivery Rate 08/22 0913 74 124/64 08/22 0838 94 Room Air Room Air 08/22 0718 98.7 85 20 122/66 95 Room Air 08/21 2224 94 Room Air 08/21 2200 99.0 84 22 122/60 94 Room Air 08/21 2111 84 122/60 08/21 1615 91 Room Air 08/21 1500 98.7 80 20 116/60 91 Room Air Intake & Output 08/22 1600 08/22 0800 08/22 0000 Intake Total 1388.4 Output Total Balance 1388.4 Intake, IV 178.4 Intake, Oral 0 Intake, Tube 640 Feeding Intake, Tube 570 Irrigant Number 0 Bowel Movements Patient 198 lb Weight Weight Bed scale Measurement Method Physical Exam Other Physical Findings: He appears comfortable in no acute distress Lungs decreased breath sounds bilaterally Heart regular rhythm with no murmur Abdomen is soft, nontender with positive bowel sounds Extremities decreased edema both lower extremities Results Last 24 Hours of Lab Results: Laboratory Tests 08/22 08/22 08/21 08/21 0450 0450 2130 1530 Chemistry Sodium (137 - 145 mmol/L) 146 H Potassium (3.5 - 5.1 mmol/L) 4.6 Chloride (98 - 107 mmol/L) 113 H Carbon Dioxide (22 - 30 mmol/L) 30 Anion Gap (5 - 16) 3 L BUN (9 - 20 mg/dL) 31 H Creatinine (0.7 - 1.2 mg/dL) 1.0 Estimated GFR (>60 ml/min) > 60 BUN/Creatinine Ratio (7 - 25 %) 31.0 H Coagulation PT (9.4 - 12.5 SEC) 15.1 H INR (0.90 - 1.17) 1.38 H APTT (25 - 37 SEC) 71 H 46 H 110 *H Hematology CBC w Diff NO MAN DIFF REQ WBC (4.8 - 10.8 /CUMM) 6.5 RBC (4.70 - 6.10 /CUMM) 2.87 L Hgb (14.0 - 18.0 G/DL) 9.4 L Hct (42 - 52 %) 28.2 L MCV (80.0 - 94.0 FL) 98.3 H MCH (27.0 - 31.0 PG) 32.8 H MCHC (33.0 - 37.0 G/DL) 33.3 RDW (11.5 - 14.5 %) 18.7 H Plt Count (130 - 400 /CUMM) 269 MPV (7.4 - 10.4 FL) 9.2 Gran % (42.2 - 75.2 %) 55.3 Lymphocytes % (20.5 - 51.1 %) 23.6 Monocytes % (1.7 - 9.3 %) 9.3 Eosinophils % (0 - 5 %) 11.4 H Basophils % (0.0 - 2.0 %) 0.4 Absolute Granulocytes (1.4 - 6.5 /CUMM) 3.6 Absolute Lymphocytes (1.2 - 3.4 /CUMM) 1.5 Absolute Monocytes (0.10 - 0.60 /CUMM) 0.6 Absolute Eosinophils (0.0 - 0.7 /CUMM) 0.7 Absolute Basophils (0.0 - 0.2 /CUMM) 0 Last 24 Hours of Zackery Results: No new cultures Assessment/Plan ID Impression: Stable, with temperatures and white blood cell count remaining normal, off antibiotics. His renal function has normalized, though he has not been straight cathed for several days despite evidence of urinary retention. Suggestion: 1. Bladder scan and reinstitute straight cath protocol if indicated 2. Further management with regard to nutrition per Medicine 3. Continue aggressive primary toilet 4. Continue to follow off antibiotics Will no longer follow at this time, but please call with any questions
[2017-08-22 14:30] VITALS: BP 106/60
--- NOTE | 2017-08-22 17:31 | RADIOLOGY REPORT ---
EXAMINATION: XR MODIFIED BARIUM SWALLOW CLINICAL INFORMATION: On nasogastric tube feeding. COMPARISON: None. TECHNIQUE: A modified barium swallow was performed with speech pathologist in attendance. Pur?e and honey consistencies of barium were given to the patient and the swallowing mechanism was observed fluoroscopically with several spot films taken. FLUOROSCOPY TIME: 1 minute and 48 seconds. FINDINGS: A nasogastric tube is noted in position. Initiation of swallowing was delayed. There was pooling of contrast in the vallecula. Penetration into the upper airway was noted when swallowing puree, and there was penetration and aspiration when the patient swallowed honey. Some penetration was noted when the patient's head was turned to the left. IMPRESSION: 1. There is laryngeal penetration and aspiration of contrast when the patient swallowed puree and honey as described above. Speech pathologist assessment issued separately.
--- NOTE | 2017-08-22 18:54 | PN- Cardiology ---
Subjective Subjective: * Patient continues to have no complaints but speaks in single words with some slurring. range of motion of left arm is marginally improved. Objective Vital Signs and I&Os Vital Signs Date Time Temp Pulse Resp B/P B/P Pulse O2 O2 Flow FiO2 Mean Ox Delivery Rate 08/22 1645 96 Room Air Room Air 08/22 1600 Room Air 08/22 1430 98.0 64 20 106/60 93 Room Air 08/22 0913 74 124/64 08/22 0838 94 Room Air Room Air 08/22 0800 96 Room Air 08/22 0718 98.7 85 20 122/66 95 Room Air 08/21 2224 94 Room Air 08/21 2200 99.0 84 22 122/60 94 Room Air 08/21 2111 84 122/60 Intake & Output 08/22 1600 08/22 0800 08/22 0000 08/21 1600 08/21 0800 08/21 0000 Intake Total 1098 1388.4 1440 980 460 Output Total 400 800 200 100 Balance 698 1388.4 640 780 360 Intake, IV 208 178.4 300 100 Intake, Oral 0 Intake, Tube 640 640 640 480 160 Feeding Intake, Tube 250 570 500 500 200 Irrigant Number 2 0 2 Bowel Movements Output, Urine 400 800 200 100 Patient 198 lb Weight Weight Bed scale Measurement Method Physical Exam: General: WD/obese; alert and responsive Neck: no JVD, no carotid bruit Heart: RRR, no murmur Lungs: clear bilaterally Extremities: 1+ bilateral pedal edema with improved erythema Neuro: decreased movement of left arm and hand Assessment/Plan Assessment/Plan * This patient continues to have some difficulty speaking but otherwise appears alert and appropriately responsive. He does have decreased movement of his left arm consistent with a CVA which is certainly a possibility considering his initial presentation in atrial fibrillation. Begin Eliquis at 5mg BID for stroke prophylaxis in the setting of paroxysmal atrial fibrillation. * This patient had a rise in cardiac enzymes consistent with a type 2 MA upon initial presentation. He has no chest discomfort. Continue aspirin at 81mg daily after Eliquis started and continue a statin and coreg. * Blood pressure is borderline. No diuretics for now. Continue telemetry? Yes
[2017-08-22 19:17] LABS: PTT 35 SEC (25-37)
[2017-08-22 22:30] VITALS: BP 112/64
[2017-08-23 04:15] LABS: PT 15.6 SEC (9.4-12.5)
[2017-08-23 04:30] LABS: PTT > 120 SEC (25-37)
[2017-08-23 06:34] VITALS: BP 126/72
--- NOTE | 2017-08-23 07:28 | PN- Housestaff ---
StewartAshley 08/23/17 0728: Subjective Follow-up For: -Altered mental status, possible toxic metabolic encephalopathy, improving ( slowly) -Acute Right abreu radiata infarct, probable cardioembolic -Acute Hypoxic Respiratory Failure, resolved -Aspiration Pneumonia, completed course of ABx treatment. -Small Left Pleural Effusion -AFib with RVR, now in NSR s/p emergent cardioversion. -Apical Thrombus s/p embolization as above -Ischemic CVA, infarct involving deep white matter of the right abreu radiata -History of Congestive heart Failure, without Pulm edema -Elevated Troponins 2/2 demand ischemia, resolved -Right lower extremity Cellulitis, resolved -Hypernatremia, resolved -Transaminitis, resolved. Tele-Events Since Last Visit: Off tele Subjective: Patient appeared to be less spirited compared to previous days. Not much conversational. Patient took out his NGT overnight. Review of Systems Constitutional: Reports: see HPI. Objective Last 24 Hrs of Vital Signs/I&O Vital Signs Date Time Temp Pulse Resp B/P B/P Pulse O2 O2 Flow FiO2 Mean Ox Delivery Rate 08/23 0817 96 Room Air 08/23 0634 97.5 80 18 126/72 93 Room Air 08/22 2230 97.6 84 18 112/64 93 08/22 2219 84 122/64 08/22 2023 Room Air 08/22 1645 96 Room Air Room Air 08/22 1600 Room Air 08/22 1430 98.0 64 20 106/60 93 Room Air 08/22 0913 74 124/64 08/22 0838 94 Room Air Room Air Intake & Output 08/23 1600 08/23 0800 08/23 0000 Intake Total 775 318 Output Total 250 Balance 525 318 Intake, IV 175 78 Intake, Other 600 240 Output, Urine 250 Patient 92.079 kg Weight Physical Exam General Appearance: Alert, Cooperative, No Acute Distress Cardiovascular: Regular Rate Lungs: Clear to Auscultation, Normal Air Movement Abdomen: Soft, No Tenderness Extremities: Healing lesions on RLE Current Medications: Current Medications Sig/Richard Start time Last Medication Dose Route Stop Time Status Admin Albuterol Sulfate 3 ML EVERY 4 HRS/AWAKE 08/15 1999 AC 08/23 INH 0807 Apixaban 5 MG 0800,08/23 0800 CAN PO Apixaban 5 MG BID 08/23 0147 DC PO Aspirin 81 MG DAILY 08/17 1000 AC 08/22 PO 0913 Atorvastatin Calcium 80 MG 1700 08/16 1730 AC 08/22 PO 1551 Carvedilol 25 MG BID 08/11 1245 AC 08/22 PO 2219 Chlorhexidine 10 ML TID 08/21 1814 AC 08/22 Gluconate PO 2221 Dextrose/Water 1,000 ML Q13H 08/23 0300 AC 08/23 IV 0330 Docusate Sodium 100 MG DAILY NEEDED PRN 08/11 1230 AC PO Glycerin 2 SPRAY Q2P PRN 08/11 0215 AC 08/20 PO 1841 Heparin Sodium 5,000 UNIT .STK-MED ONE 08/22 2210 DC (Porcine) IV 08/22 2211 Heparin Sodium/ 25,000 UNIT Q24H 08/16 1045 DC 08/22 Dextrose IV 08/23 0800 1600 Dextrose/Water 500 ML Loratadine 10 MG DAILY 08/21 1813 AC 08/22 PO 0913 Pantoprazole Sodium 40 MG DAILY 08/15 1000 AC 08/22 IV 0914 Potassium Chloride 40 MEQ DAILY 08/16 1000 AC 08/22 PO 0914 Senna/Docusate Sodium 1 TAB BID PRN 08/11 1504 AC 08/18 PO 1009 Sodium Chloride 2 SPRAY Q4P PRN 08/18 1000 AC WENDI Last 24 Hrs of Lab/Zackery Results Last 24 Hrs of Labs/Mics: Laboratory Tests 08/23/17 0355: PT 15.6 H, INR 1.43 H 08/23/17 0355: Anion Gap 4 L, Estimated GFR > 60, BUN/Creatinine Ratio 30.0 H, APTT > 120 *H 08/22/17 1740: APTT 35 Assessment/Plan Assessment: 72-year-old male with history of CHF, hypertension, previous syncopal episode, presented with altered mental status and shortness of breath, initially being treated for AMS, aspiration pneumonia and RICHI and Left lower leg cellulitis, treated with Doxy, ceftriaxone, vancomycin, and was later with vancomycin and Ceftazidime. Patient had LP on 08/06/17 which was negative. - He was found to have left ventricle Apical thrombus in the echocardiogram, and mild left atrial dilatation, possible thrombus in the left atrial appendage, atrial septal aneurysm but no evidence of atrial shunt, mild mitral regurgitation and a small pericardial effusion among others (please see full echo report). He has been on IV heparin for anti-coagulation. -Patient was found to have paroxysmal atrial fibrillation with rapid ventricular response as well, underwent emergent cardioversion, and was placed on diltiazem drip converted to by mouth betablocker. He is on IV Heparin for anticoagulation. Cardiology following. -He also had left hemiparesis and was found to have subcortical stroke secondary to an emboli from left ventricle thrombus, for which neurology suggested Lipitor 80 mg controlling blood pressure and no need for MRI and has signed off. -For RICHI, nephrology has been on board as the patient had hypernatremia secondary to decreased free water intake which is now improving. -patient still has some warmth, redness and swelling of his left lower extremity , which is much better compared to his admitting presentation. No sign of general anasarca -He also had complete opacification of left hemithorax which is now improving with aggressive PT, likely secondary to mucus plugging and atelectasis rather than aspiration. Patient completed the course of ABx for aspirational pneumonia Eason catheter removed. ---- Problem List -Altered mental status, possible toxic metabolic encephalopathy, improving ( slowly) -Acute Right abreu radiata infarct, probable cardioembolic -Acute Hypoxic Respiratory Failure, resolved -Aspiration Pneumonia, completed course of ABx treatment. -Small Left Pleural Effusion -AFib with RVR, now in NSR s/p emergent cardioversion. -Apical Thrombus s/p embolization as above -Ischemic CVA, infarct involving deep white matter of the right abreu radiata -History of Congestive heart Failure, without Pulm edema -Elevated Troponins 2/2 demand ischemia, resolved -Right lower extremity Cellulitis, resolved -Hypernatremia, resolved -Transaminitis, resolved. Plan -Supplemental O2, however patient had been breathing under RA without desatting. -NGT pulled out overnight, pending GI consult for possible PEG tube -Tube feeding had to be held due to risk of aspiration. - Talked to GI Dr. Coe on phone, confirmed for PEG tube placement on 08/24 AM, will continue Heparin drip till midnight, keep NPO, update family. -TRC with Nebs/Mucomyst as needed. -Aggressive pulmonary toilet/ Chest PT -Heparin GGT to continue, given cardiac thrombus, however will switch to eliquis once cleared by swallow and no need for PEG tube placement. -Aspirin 81 mg PO Daily -Ciprofloxacin for aspirational pneumonia course completed 08/20. -Protonix 40 mg IV Daily -Discontinued Lasix 40 mg p.o. daily for hypernatremia. Na 142 on latest lab -Atorvastatin 80 mg PO Daily -Continue meds: Carvedilol, Colace, Senna -F/U cultures & Sensitivites; NGTD -Daily INR, BEP -Pain control PRN -NPO, failed swallow eval, Pending GI as above -DVT PPx with ALPS -FULL CODE Problem List: 1. Altered mental state Pain Ratin Pain Location: NA Pain Goal: Remain pain free Pain Plan: see AP Tomorrow's Labs & Rationales: BEP/INR Dinesh KOEHLER,[place] 08/23/17 1349: Attending MD Review Statement Attending Statement Attending MD Statement: examined this patient, discuss w/resident/PA/FIELD PROFESSIONAL, agreed w/resident/PA/FIELD PROFESSIONAL, reviewed EMR data (avail), discussed with nursing, discussed with case mgmt, amended to note Attending Assessment/Plan: Patient seen and examined. Apparently overnight he pulled out his NG tube. This morning he is alert and oriented 3. Speech is significantly slurred. Continues to have weakness on his left side particularly his upper extremity. He failed a modified barium swallow yesterday. Given the level of his alertness no further significant improvement of his swallowing is anticipated in the near future. Patient will benefit from PEG tube placement in order to resume enteral feeding. I have discussed this with the patient and his son. They are in agreement with this plan. Recommendations: -GI consultation for placement of PEG tube. - transition anticoagulation to Eliquis once PEG tube is in place. -No need for further diuresis at this time. Discharge planning is in progress. Once PEG tube is in place patient will be [facility] to [facility] facility for [facility]. -
[2017-08-23 13:07] LABS: PTT 74 SEC (25-37)
[2017-08-23 14:38] VITALS: BP 120/60
--- NOTE | 2017-08-23 21:02 | PN- Cardiology ---
Subjective Subjective: * Patient is more verbal with less slurring of speech and improved movement of his left arm. He denies any symptoms. * Patient is at risk for aspiration based on barium swallow. Objective Vital Signs and I&Os Vital Signs Date Time Temp Pulse Resp B/P B/P Pulse O2 O2 Flow FiO2 Mean Ox Delivery Rate 08/23 1624 91 Room Air 08/23 1600 Room Air 08/23 1438 98.7 85 22 120/60 92 Room Air 08/23 0817 96 Room Air 08/23 0800 96 Room Air Room Air 08/23 0634 97.5 80 18 126/72 93 Room Air 08/22 2230 97.6 84 18 112/64 93 08/22 2219 84 122/64 Intake & Output 08/23 1600 08/23 0800 08/23 0000 08/22 1600 08/22 0800 08/22 0000 Intake Total 838 241 681 7361 1388.4 Output Total 250 400 Balance 838 525 091 157 4217.4 Intake, IV 838 175 78 208 178.4 Intake, Oral 0 Intake, Other 600 240 Intake, Tube 640 640 Feeding Intake, Tube 250 570 Irrigant Number 3 2 0 Bowel Movements Output, Urine 250 400 Patient 203 lb 198 lb Weight Weight Bed scale Measurement Method Physical Exam: General: WD/obese; alert and responsive Neck: no JVD, no carotid bruit Heart: RRR, no murmur Lungs: clear bilaterally Extremities: 1+ bilateral pedal edema with improved erythema Neuro: decreased movement of left arm and hand Assessment/Plan Assessment/Plan * This patient continues to have some difficulty speaking but otherwise appears alert and appropriately responsive. He does have decreased movement of his left arm consistent with a CVA which is certainly a possibility considering his initial presentation in atrial fibrillation. Continue Eliquis at 5mg BID for stroke prophylaxis in the setting of paroxysmal atrial fibrillation. * This patient had a rise in cardiac enzymes consistent with a type 2 SC upon initial presentation. He has no chest discomfort. Continue aspirin at 81mg daily after Eliquis started and continue a statin and coreg. * Blood pressure is in the low normal range. No diuretics for now. Continue telemetry? No
[2017-08-23 23:00] VITALS: BP 130/76
[2017-08-24 06:30] VITALS: BP 144/83
--- NOTE | 2017-08-24 07:22 | PN- Housestaff ---
Ashley Stewart 08/24/17 0721: Subjective Follow-up For: 1. Acute respiratory failure; resolved. 2. Toxic metabolic encephalopathy; resolving 3. Stroke; acute right abreu radiata infarct. With left-sided weakness and severe dysarthria and dysphagia. 4. New onset atrial fibrillation. Status post emergent cardioversion. 5. Elevated troponin secondary to type II myocardial infarction 6. Hypernatremia; secondary to volume depletion. resolved 8. Dysphagia secondary to stroke; scheduled for PEG tube placement. 9. Small apical thrombus. Tele-Events Since Last Visit: Off tele Subjective: Patient appeared to be at similar mental statuscompared to previous days. Not much conversational, however answered some of my questions. Acknowledged that he would have a PEG tube placement today. Review of Systems Constitutional: Reports: see HPI. Objective Last 24 Hrs of Vital Signs/I&O Vital Signs Date Time Temp Pulse Resp B/P B/P Pulse O2 O2 Flow FiO2 Mean Ox Delivery Rate 08/23 2300 98.2 94 20 130/76 91 08/23 2117 95 123/64 08/23 1624 91 Room Air 08/23 1600 Room Air 08/23 1438 98.7 85 22 120/60 92 Room Air 08/23 0817 96 Room Air 08/23 0800 96 Room Air Room Air Intake & Output 08/24 0800 08/24 0000 08/23 1600 Intake Total 0 675 838 Output Total 225 300 Balance -225 375 838 Intake, IV 675 838 Intake, Oral 0 Number 3 Bowel Movements Output, Urine 225 300 Patient 88.904 kg Weight Weight Bed scale Measurement Method Physical Exam General Appearance: Alert, Cooperative, No Acute Distress Cardiovascular: Regular Rate Lungs: Clear to Auscultation, Normal Air Movement Abdomen: Soft, No Tenderness Extremities: BLE +1 edema Current Medications: Current Medications Sig/Richard Start time Last Medication Dose Route Stop Time Status Admin Albuterol Sulfate 3 ML EVERY 4 HRS/AWAKE 08/15 1999 AC 08/23 INH 1999 Aspirin 81 MG DAILY 08/17 1000 AC 08/22 PO 0913 Atorvastatin Calcium 80 MG 1700 08/16 1730 AC 08/22 PO 1551 Carvedilol 25 MG BID 08/11 1245 AC 08/22 PO 2219 Chlorhexidine 10 ML TID 08/21 1814 AC 08/23 Gluconate PO 211 Dextrose/Water 1,000 ML Q13H 08/23 0300 AC 08/24 IV 0642 Docusate Sodium 100 MG DAILY NEEDED PRN 08/11 1230 AC PO Glycerin 2 SPRAY Q2P PRN 08/11 0215 AC 08/20 PO 1841 Heparin Sodium/ 25,000 UNIT Q24H 08/23 1100 DC 08/23 Dextrose IV 08/24 0000 1352 Dextrose/Water 500 ML Heparin Sodium/ 25,000 UNIT Q24H 08/16 1045 DC 08/22 Dextrose IV 08/23 0800 1600 Dextrose/Water 500 ML Loratadine 10 MG DAILY 08/21 1813 AC 08/22 PO 0913 Pantoprazole Sodium 40 MG DAILY 08/15 1000 AC 08/23 IV 1351 Potassium Chloride 40 MEQ DAILY 08/16 1000 AC 08/22 PO 0914 Senna/Docusate Sodium 1 TAB BID PRN 08/11 1504 AC 08/18 PO 1009 Sodium Chloride 2 SPRAY Q4P PRN 08/18 1000 AC WENDI Last 24 Hrs of Lab/Zackery Results Last 24 Hrs of Labs/Mics: Laboratory Tests 08/23/17 1220: APTT 74 H Assessment/Plan Assessment: 72-year-old male with history of CHF, hypertension, previous syncopal episode, presented with altered mental status and shortness of breath, initially being treated for AMS, aspiration pneumonia and RICHI and Left lower leg cellulitis, treated with Doxy, ceftriaxone, vancomycin, and was later with vancomycin and Ceftazidime. Patient had LP on 08/06/17 which was negative. ---- Problem List 1. Acute respiratory failure; resolved. 2. Toxic metabolic encephalopathy; resolving 3. Stroke; acute right abreu radiata infarct. With left-sided weakness and severe dysarthria and dysphagia. 4. New onset atrial fibrillation. Status post emergent cardioversion. 5. Elevated troponin secondary to type II myocardial infarction 6. Hypernatremia; secondary to volume depletion. resolved 8. Dysphagia secondary to stroke; scheduled for PEG tube placement. 9. Small apical thrombus. Plan -Supplemental O2, however patient had been breathing under RA without desatting. -NGT pulled out 08/23, pending GI procedure for possible PEG tube -Tube feeding had to be held due to risk of aspiration. - Talked to GI Dr. Coe on phone, confirmed for PEG tube placement on 08/24 AM, heparin on hold now, kept NPO, updated family. -TRC with Nebs/Mucomyst as needed. -Aggressive pulmonary toilet/ Chest PT -Heparin GGT to continue, given cardiac thrombus, however will switch to eliquis once cleared by swallow and no need for PEG tube placement. -Aspirin 81 mg PO Daily -Ciprofloxacin for aspirational pneumonia course completed 08/20. -Protonix 40 mg IV Daily -Discontinued Lasix 40 mg p.o. daily for hypernatremia. Na 142 on latest lab -Atorvastatin 80 mg PO Daily -Continue meds: Carvedilol, Colace, Senna -F/U cultures & Sensitivites; NGTD -Pain control PRN -NPO, failed swallow eval, Pending PEG Tube placement as above -DVT PPx with ALPS -FULL CODE Problem List: 1. Altered mental state Pain Ratin Pain Location: NA Pain Goal: Remain pain free Pain Plan: see AP Tomorrow's Labs & Rationales: MARY JANE Montiel MD,[place] 08/24/17 1229: Attending MD Review Statement Attending Statement Attending MD Statement: examined this patient, discuss w/resident/PA/BUTT PRESSER, agreed w/resident/PA/BUTT PRESSER, reviewed EMR data (avail), discussed with nursing, discussed with case mgmt, amended to note Attending Assessment/Plan: Patient seen and examined. Resting comfortably and not in any acute distress. No issues overnight. He remains alert. Speech remains significantly slurred. Continues to have left upper extremity weakness. He is scheduled for placement of a PEG tube today. Problems: 1. Acute respiratory failure; resolved. 2. Toxic metabolic encephalopathy; resolving 3. Stroke; acute right abreu radiata infarct. With left-sided weakness and severe dysarthria and dysphagia. 4. New onset atrial fibrillation. Status post emergent cardioversion. 5. Elevated troponin secondary to type II myocardial infarction 6. Hypernatremia; secondary to volume depletion. resolved 8. Dysphagia secondary to stroke; scheduled for PEG tube placement. 9. Small apical thrombus. Recommendations: -Following placement of the PEG tube today begin enteral feeding. We will start at a slow rate and titrate up to goal. Monitor closely for residuals -Begin anticoagulation therapy with Eliquis for his atrial fibrillation starting tomorrow. -Patient may be discharged to a intermediate facility over the weekend once a bed becomes available. -Patient to follow-up with the cardiology service as an outpatient to determine need for any further ischemic workup. -Patient has 2 ulcerations on his feet. He was evaluated by the vascular surgery service. He has no evidence of ischemia. Please obtain podiatry consultation. -Begin anticoagulation therapy with Eliquis for his atrial fibrillation starting tomorrow. -Patient may be discharged to a intermediate facility over the weekend once a bed becomes available. -Patient to follow-up with the cardiology service as an outpatient to determine need for any further ischemic workup. -Patient has 2 ulcerations on his feet. He was evaluated by the vascular surgery service. He has no evidence of ischemia. Please obtain podiatry consultation.
[2017-08-24] MEDS ORDERED: ELIQUIS5 M1 PO (09:43)
--- NOTE | 2017-08-24 09:52 | Patient Discharge Instructions ---
Discharge Instructions General Discharge Information Special Instructions: - Please follow up with your senior formulation scientist Dr. Hitchcock within 1-2 weeks of discharge. - Please follow up with elio primary care physician within 1-2 weeks of discharge. Inform your primary care physician of this admission to [facility]. - Continue your current medications per discharge instructions. - Please watch for these problems: Fever, Chills, Nausea, Vomiting, Shortness of Breath, Productive Cough, Chest Pain/Discomfort, Abdominal Pain, Active Bleeding or Bloody urine/stool. Diet Continue normal diet: No Recommended Diet: Tube Feeding Jevity 1.2 Activity Full Activity/No Limits: No Acute Coronary Syndrome Inclusion Criteria At DC or during hospital stay patient has or had the following: ACS DIAGNOSIS No Discharge Core Measures Meds if any: Prescribed or Continued at Discharge Meds if any: NOT Prescribed or Continued at Discharge Congestive Heart Failure Inclusion Criteria At DC or during hospital stay patient has or had the following: CHF DIAGNOSIS Yes Discharge Core Measures Meds if any: Prescribed or Continued at Discharge MARIBEL/ARB for EF <40% Yes Meds if any: NOT Prescribed or Continued at Discharge Cerebrovascular accident Inclusion Criteria At DC or during hospital stay patient has or had the following: CVA/TIA Diagnosis No Discharge Core Measures Meds if any: Prescribed or Continued at Discharge Meds if any: NOT Prescribed or Continued at Discharge Venous thromboembolism Inclusion Criteria VTE Diagnosis No VTE Type NONE VTE Confirmed by (Test) NONE Discharge Core Measures - Per Current guidelines, there needs to be overlap - treatment for the first 5 days of Warfarin therapy. - If discharged on Warfarin prior to 5 days of - overlap therapy, the patient will need to be - assessed for post discharge needs including - *Post discharge parental anticoagulation - *Warfarin and/or parental anticoagulation education - *Follow up date to check INR post discharge At least 5 days overlap therapy as Inpatient No Meds if any: Prescribed or Continued at Discharge Note: Overlap Therapy is Warfarin and Anticoagulant Meds if any: NOT Prescribed or Continued at Discharge
--- NOTE | 2017-08-24 13:16 | Discharge Summary ---
Visit Information Visit Dates Admission Date: 08/02/17 Discharge Date: 09/02/17 Hospital Course Course Attending Physician: Dinesh KOEHLER,[place] Primary Care Physician: Patient Has No Primary Care Dr Hospital Course: Mr. Pike is a 72-year-old male with history of CHF, hypertension, previous syncopal episode, per family who had an TN and had a stent placement at [facility] about 7 years ago, recent fall couple of days prior to admission and recently treated for cellulitis prior to admission, was found by his landlord when she didn't hear for him for 3 days lying on his couch surrounded by his excreta. Found to be in RVR and was cardioverted emergently and was administered ativan. Patient Sunday09/02/17 at 11:11 a.m. after a CODE 3 was activated and 31 minutes of CPR was unsuccessful. Son was notified during and after event. Patient was admitted to ICU, and once stablized, transferred to Telemetry and subsequently downgraded to gen medical floor for the management of the following : Problem List 1. Acute respiratory failure; resolved. 2. Toxic metabolic encephalopathy; resolving 3. Stroke; acute right abreu radiata infarct. With left-sided weakness and severe dysarthria and dysphagia. 4. New onset atrial fibrillation. Status post emergent cardioversion, w/ small apical thrombus. 5. Elevated troponin secondary to type II myocardial infarction 6. Hypernatremia; secondary to volume depletion. resolved 7. Dysphagia secondary to stroke; s/p PEG tube placement. 8. Left leg cellulitis 9. R psoas muscle hematoma vs abscess 1. Acute respiratory failure; resolved. Patient's acute respiratory failure is likely due to multifactorial including aspiration/worsening pulmonary edema, and was started on TRC/nebulizer, keep head of bed elevated, daily diuresis, chlorhexidine bath daily, and eventually extubated and weaned down oxygen needs prior to transfer to telemetry. His respiratory status remained stable with only minimal oxygen requirement 2. Toxic metabolic encephalopathy; resolving Upon admission, differential diagnosis including cerebral edema versus hypoxic/ ischemic encephalopathy, versus stroke, and medication use cannot be rule out as well. Over the hospital course, cultures and no growth over the hospital course. CSF culture and Gram stain negative, HSV PCR/HIV negative, hep C negative, acetaminophen/salicylate levels within normal range. Patient underwent [address] head with no acute intracranial pathology, midline shift or hemorrhage. CT abdomen/pelvis showed sigmoid diverticulosis without evidence of infection. Patient EEG done August 06, 2017 revealed diffuse generalized slowing to delta range of movements, slow amplitude in the 5-10 V range, which may suggestive of diffuse cerebral dysfunction and a nonspecific encephalopathy. In addition patient's vitamin B12 and ammonia level had all been normal range. Patient did show slow improvement by obeying simple commands and opening his eyes spontaneously and responding prior to his transfer to telemetry. Patient's mental status gradually improved after his hypernatremia improved, however still not fully oriented to surroundings/settings during his hospital stay. 3. Stroke; acute right abreu radiata infarct. With left-sided weakness and severe dysarthria and dysphagia. Neurology was consulted for further workup of patient's altered mental status, and recommended that a small embolic infarct cannot be ruled out. As above, patient underwent CT head x 3 with no acute intracranial pathology, midline shift or hemorrhage. CT abdomen/pelvis showed sigmoid diverticulosis without evidence of infection. Patient is EEG done well August 06, 2017 revealed diffuse generalized slowing to delta range of movements, slow amplitude in the 5-10 V range, which may suggestive of diffuse cerebral dysfunction and a nonspecific encephalopathy. However, on August 16, 2017, patient's CT head showed evidence of recent infarct involving deep white matter of the right abreu radiata ( images 34-35, series 2). During the hospital stay, patient's left upper extremity and left lower extremity strength improved slowly, was still signs of slurred speech. Patient also failed swallow evaluation, which warranted him for PEG tube placement for long-term nutritional support as mentioned below. Neurology suggested Lipitor 80 mg, and no need for MRI. 4. New onset atrial fibrillation. Status post emergent cardioversion, with small apical thrombus. Patient underwent synchronized cardioversion emergency, and his home medication was held for hypotension. Patient was started on IV heparin and transitioned to Eliquis. Echocardiogram on 08/02/2017, showed normal EF of 50%, with inferoapical and apical hypokinesis and large pedicle thrombus. Aterial doppler showed patent deep arterial systems of the bilateral lower extremities. Deep arteries of the left calf were not clearly visualized, however, left dorsal pedis artery was documented as patent. Patient's stroke mentioned above was certainly a possibility considering his initial presentation of atrial fibrillation. Upon PEG tube placement, patient was started on Eliquis 5 mg twice daily for stroke prophylaxis in the setting of proximal atrial fibrillation. 5. Elevated troponin secondary to type II myocardial infarction Patient had a rising cardiac enzymes consistent with a type II TN upon initial presentation, without any particular chest discomfort. Patient was continue on aspirin 81 mg daily, Lipitor, Coreg, and Eliquis started after PEG tube placement as mentioned above. 6. Hypernatremia; secondary to volume depletion. resolved Patient serum sodium fluctuated over the hospital course, was episodes of hypernatremia, likely secondary to his volume depletion from diuresis, in addition to salt balance/tube feeding with Jevity 1.2. Upon discontinuation of Lasix, and increase of the flow to 250 cc tube feeding, patient's hyponatremia resolved, with slight improvement on his mental status. 7. Dysphagia secondary to stroke; s/p PEG tube placement. In combination of patient's slurred speech, dysphagia, recent stroke, altered mental status, patient was placed on NG tube was up to feeding the ICU stay, and was transferred to telemetry. Patient failed his modified barium swallow eval, and required long-term nutritional support for full recovery on swallow ability. Patient was scheduled for a PEG tube placement by GI, and underwent the procedure without complication. Tube feeding was restarted after PEG tube placement under the guidance of nutritional consult. 8. Left leg cellulitis Patient was given 2 L of vancomycin upon admission, and underwent a 7 day course of IV ceftriaxone. Patient cellulitis resolved after completion of antibiotics and resumed with spiking fevers. He was restarted on broad spectrum antibiotics and discontinue after repeated cultures showed no growth. His lower extremity Dopplers ruled out DVT. 9. R psoas muscle hematoma vs abscess An incidental R psoas hematoma with a possible underlying infection was found on CT abdomen/pelvis after evaluation for spiking fevers. Cardiology recommended hold anticoagulation for 2 days, and we resumed his anticoagulation afterwards. He was treated with antibiotics prior these findings and blood and urine cultures remained negative. DVT prophylaxis: IV heparin bridged to Eliquis Tube feeding Full code Special note: only speak to: Son Jose Pike [phone] TRY HIM FIRST Brother Itz Pike [phone] [facility] no one else should visit the patient or given any updates/information has estranged brother Salvador Glendy who should not be allowed to visit or given any information Allergies: Coded Allergies: No Known Allergies (08/02/17) Pertinent Lab Results: SERVICE DATE: 08/02/17 EXAM TYPE: RAD - XRY-PORTABLE CHEST XRAY IMPRESSION: 1. Cardiomegaly and central vascular congestion. 2. Bibasilar opacities, suspicious for atelectasis or pneumonia. SERVICE DATE: 08/02/17 EXAM TYPE: CAT - CT ABD & PELVIS W/O IV CONTRAS IMPRESSION: Several punctate nonobstructive right renal calculi. No hydronephrosis. Moderate bilateral pleural effusions with associated bibasilar airspace disease. Infection cannot be excluded. Cardiomegaly and small pericardial effusion. Sigmoid diverticulosis without evidence of diverticulitis. SERVICE DATE: 08/02/17 EXAM TYPE: CAT - CT CERV SPINE WO IV CONTRAST; CT HEAD WO IV CONTRAST IMPRESSION: No acute intracranial hemorrhage. No acute cervical spine fracture. Although only partially visualized within the [id number] of this examination there are layering pleural effusions on both sides. SERVICE DATE: 08/02/17 EXAM TYPE: CARD - ECHOCARDIOGRAM CONCLUSIONS 1. Low normal EF of 50% with inferoapical and apical hypokinesis. 2. Large apical thrombus. 3. Moderate left ventricular hypertrophy. 4. Moderate left atrial enlargement. 5. Mild mitral regurgitation. 6. Mild tricuspid regurgitation. 7. Mild pulmonary hypertension. 8. Small pericardial effusion. Jamal Hitchcock M.D. SERVICE DATE: 08/02/17 EXAM TYPE: US - US-RENAL/KIDNEY IMPRESSION: Neither hydronephrosis nor nephrolithiasis. Bilateral renal cortical thinning. SERVICE DATE: 08/03/17 EXAM TYPE: US - US-EXT BILAT VENOUS DOPPLER IMPRESSION: No evidence of deep venous thrombosis in the right or left lower extremity. SERVICE DATE: 08/03/17 EXAM TYPE: CAT - CT HEAD WO IV CONTRAST IMPRESSION: Patient motion degrades image quality therefore the diagnostic accuracy of this examination is limited. Grossly no evidence of acute territorial infarct or hemorrhage. SERVICE DATE: 08/03/17 EXAM TYPE: CAT - CT HEAD WO IV CONTRAST IMPRESSION: No acute intracranial pathology demonstrated. Image quality is degraded by patient motion artifact. SERVICE DATE: 08/03/17 EXAM TYPE: US - [id number]-LLHEPADAE DOPPLER IMPRESSION: 1. RIGHT: Minimal, nonhemodynamically significant stenosis of the proximal right internal carotid artery corresponding to a 0-49% stenosis by velocity criteria. 2. LEFT: Minimal, nonhemodynamically significant stenosis of the proximal left internal carotid artery corresponding to a 0-49% stenosis by velocity criteria. 3. No evidence for hemodynamically significant stenosis in the external carotid arteries. SERVICE DATE: 08/03/17 EXAM TYPE: US - US-BILAT LOW EXTR ARTERIAL DOP IMPRESSION: Patent deep arterial systems of the bilateral lower extremities. Deep arteries of the left calf were not clearly visualized, however, left dorsal pedis artery was documented as patent. A few focal regions of mildly increased velocity as detailed above possibly suggest stenosis. Waveforms are difficult to evaluate given patient motion. SERVICE DATE: 08/04/17 EXAM TYPE: RAD - XRY-PORTABLE CHEST XRAY IMPRESSION: Likely small pleural effusions. Increasing bibasilar opacities which could represent atelectasis or pneumonia. SERVICE DATE: 08/05/17- EXAM TYPE: RAD - XRY-PORTABLE CHEST XRAY IMPRESSION: Mildly worsened parenchymal consolidation which is predominantly in the mid to lower lungs. Possible left pleural effusion. Consider sequela of pulmonary edema or multifocal infection. SERVICE DATE: 08/06/17- EXAM TYPE: RAD - XRY-PORTABLE CHEST XRAY IMPRESSION: There is cardiomegaly and progressive airspace disease that is most consistent with worsening pulmonary edema. The possibility of superimposed pneumonia cannot be excluded. The size of a left effusion has increased. SERVICE DATE: 08/07/17- EXAM TYPE: RAD - XRY-PORTABLE CHEST XRAY IMPRESSION: 1. Nasogastric tube in stomach. 2. Persistent congestive heart failure. Persistent dense left lung base. The lung apices are not fully included in the study. Only a portion of the right clavicle is identified. The entire left clavicle is excluded as well as the base of the neck. There is a catheter which could be a PICC line catheter seen over the right axilla. It appears the catheter tip though is at the axilla and does not pass further into the chest. The catheter tip is therefore in the area of the right subclavian vein. SERVICE DATE: 08/07/17 EXAM TYPE: RAD - XRY-PORTABLE CHEST XRAY IMPRESSION: 1. No interval change in diffuse bilateral airspace opacities and vascular engorgement, most consistent with alveolar pulmonary edema versus less likely diffuse pneumonia. 2. No significant change in small left-sided pleural effusion. Trace right-sided pleural effusion may also be present. SERVICE DATE: 08/08/17 EXAM TYPE: RAD - XRY-PORTABLE CHEST XRAY IMPRESSION: 1. Endotracheal tube tip at the thoracic inlet, approximately 10 cm above the hollis. 2. Orogastric tube appears to course into the stomach, with the tip not well visualized. 3. Mildly worsening right upper lobe consolidation. Persistent retrocardiac opacity. Slightly improved right basilar aeration. SERVICE DATE: 08/08/17 EXAM TYPE: RAD - XRY-PORTABLE CHEST XRAY IMPRESSION: 1. Endotracheal tube tip approximately 7 cm above the hollis. 2. Right PICC appears to terminate in the region of the right subclavian vein. 3. Redemonstrated multifocal bilateral airspace opacities and trace pleural effusions. SERVICE DATE: 08/08/17 EXAM TYPE: RAD - XRY-PORTABLE CHEST XRAY IMPRESSION: 1. Interval adjustment of the endotracheal tube which now terminates approximately 2 cm above the hollis. 2. Improved aeration noted in the right upper lobe with residual hazy reticular changes. Persistent patchy opacity right lower lung. 3. Persistent moderate left effusion with associated airspace opacity . SERVICE DATE: 08/09/17- EXAM TYPE: RAD - XRY-PORTABLE CHEST XRAY IMPRESSION: 1. Interval adjustment of endotracheal tube which appears to terminate approximately 4.6 cm above the hollis. 2. Examination is limited due to portable technique as detailed. 3. Stable pleural effusions with associated airspace opacity and vascular congestion. SERVICE DATE: 08/09/17 EXAM TYPE: RAD - XRY-PORTABLE CHEST XRAY IMPRESSION: 1. Endotracheal tube tip is at the level of the hollis. It should be withdrawn by approximately 3 cm. 2. Limited assessment of the orogastric tube. Tip appears to be in the left upper quadrant. 3. Vascular congestion and interstitial edema, right greater than left. 4. Bilateral effusions with associated airspace disease, left greater than right. SERVICE DATE: 08/09/17 EXAM TYPE: US - US-UNILATERAL VENOUS DOPPLER IMPRESSION: No evidence of deep vein thrombosis. SERVICE DATE: 08/10/17 EXAM TYPE: RAD - XRY-PORTABLE CHEST XRAY IMPRESSION: 1. Endotracheal tube tip approximately 5.7 cm above the hollis. 2. Enteric tube poorly visualized with tip not included. 3. Lung findings are suggestive of pulmonary edema. Superimposed bibasilar atelectasis or consolidation and small left pleural effusion are also seen. Findings are similar to the previous exam. SERVICE DATE: 08/11/17 EXAM TYPE: RAD - XRY-PORTABLE CHEST XRAY IMPRESSION: Unchanged appearance of the chest with findings consistent with pulmonary edema. Superimposed bibasilar atelectasis or consolidation and small effusions are also seen, unchanged. SERVICE DATE: 08/12/17 EXAM TYPE: RAD - XRY-PORTABLE CHEST XRAY IMPRESSION: 1. Endotracheal tube 3 cm above the hollis. 2. Indeterminate position of feeding tube. 3. Stable appearance of central vascular congestion with mild interstitial changes consistent with pulmonary edema. 3. Persistent bibasilar opacity consistent with layering pleural effusions and associated atelectasis. SERVICE DATE: 08/12/17 EXAM TYPE: RAD - XRY-PORTABLE CHEST XRAY IMPRESSION: The tip of enteric tube projects over the left upper quadrant of abdomen. CHF and left-sided pleural effusion. SERVICE DATE: 08/13/17 EXAM TYPE: RAD - XRY-PORTABLE CHEST XRAY IMPRESSION: Increased opacity at the left mid to lower lung and at the right base. Finding is most concerning for multifocal pneumonia. There may be a left pleural effusion as well. No pneumothorax. SERVICE DATE: 08/14/17- EXAM TYPE: CAT - CT HEAD WO IV CONTRAST IMPRESSION: 1. No acute intracranial hemorrhage. 2. There is evidence of recent infarct involving deep white matter of the right abreu radiata (images 34-35, series 2). SERVICE DATE: 08/14/1708 EXAM TYPE: CARD - TRANSESOPHAGEAL ECHO CONCLUSIONS Left ventricle of grossly normal size and function. Possible small apical thrombus observed on some views. Right ventricle is normal in size and function. Normal right atrial size. Mild left atrial dilatation. Possible thrombus in the left atrial appendage. Atrial septal aneurysm. No evidence of atrial shunt flow by color Doppler or agitated saline ("bubble") study. Mild mitral regurgitation. Trace aortic regurgitation. Trace tricuspid regurgitation. Small pericardial effusion. Bernard Leonard M.D. SERVICE DATE: 08/14/17 EXAM TYPE: RAD - XRY-PORTABLE CHEST XRAY IMPRESSION: Complete opacification of left hemithorax represents left lung collapse. SERVICE DATE: 08/15/17 EXAM TYPE: RAD - XRY-PORTABLE CHEST XRAY IMPRESSION: 1. Enteric tube courses into the abdomen with tip not included. 2. Improved aeration in the left lung is seen with resolution of the mediastinal shift to the left side. 3. Persistent large left pleural effusion. 4. Persistent right medial and lower lung base opacities, likely due to atelectasis. 5. Central vascular congestion. SERVICE DATE: 08/16/17 EXAM TYPE: RAD - XRY-PORTABLE CHEST XRAY IMPRESSION: 1. Right-sided PICC line tip is in the axillary region. Please correlate clinically if the tip should be repositioned into the SVC. 2. Enteric tube courses into the abdomen with tip not included. 3. Decrease in left-sided pleural effusion with small left effusion remaining. 4. No significant change in mid and lower lung parenchymal opacities bilaterally, likely related to lung consolidation/pneumonia or atelectasis. Associated central vascular congestion is seen. SERVICE DATE: 08/17/17 EXAM TYPE: RAD - XRY-CHEST XRAY, TWO VIEWS IMPRESSION: 1. No change in positioning of the right sided midline catheter. 2. Enteric tube courses into the abdomen with tip beyond the [id number] of this exam. 3. Persistent mild central vascular congestion, small bilateral pleural effusions and bibasilar opacities, unchanged to minimally improved compared to the previous exam. SERVICE DATE: 08/18/17 EXAM TYPE: RAD - XRY-PORTABLE CHEST XRAY IMPRESSION: Technically limited examination. The NG tube is looped back on itself. Recommend advancement (10 cm) and recheck. SERVICE DATE: 08/18/17 EXAM TYPE: RAD - XRY-PORTABLE CHEST XRAY IMPRESSION: 1. Cardiomegaly and pulmonary vascular congestion. 2. Persistent small left pleural effusion and left basilar opacification. 3. The enteric tube is positioned within the proximal stomach. SERVICE DATE: 08/22/17- EXAM TYPE: RAD - XRY-MODIFIED BARIUM SWALLOW IMPRESSION: 1. There is laryngeal penetration and aspiration of contrast when the patient swallowed puree and honey as described above. Speech pathologist assessment issued separately. SERVICE DATE: 08/29/17- EXAM TYPE: CAT - CT ABD & PELVIS W/O IV CONTRAS; CT CHEST WO IV CONTRAST IMPRESSION: 1. There is abnormal heterogenous density with fullness of the right psoas muscle with perimuscular stranding, which may be consistent with a hematoma. A phlegmon or developing abscess cannot be excluded. 2. There are moderate left and small right pleural effusions. There is likely consolidation or atelectasis in the left lower lobe. 3. There are bilateral renal calcifications. There is nonspecific bilateral perinephric renal stranding. There is no hydronephrosis. A hyperdense area at the upper pole of the right kidney may be consistent with a complex cyst. This could be further assessed with renal ultrasound. Disposition Summary Disposition Principal Diagnosis: 1. Acute respiratory failure; resolved. 2. Toxic metabolic encephalopathy; resolving 3. Stroke; acute right abreu radiata infarct. With left-sided weakness and severe dysarthria and dysphagia. 4. New onset atrial fibrillation. Status post emergent cardioversion. 5. Elevated troponin secondary to type II myocardial infarction 6. Hypernatremia; secondary to volume depletion. resolved 8. Dysphagia secondary to stroke; scheduled for PEG tube placement. 8. Left leg cellulitis 9. R psoas muscle hematoma vs abscess Additional Diagnosis: As above Discharge Disposition: SNF Discharge Instructions General Discharge Information Code Status: Full Code Patient's Diet: Tube feeding Patient's Activity: As tolerated Follow-Up Instructions/Appts: NA Medications at Discharge Discharge Medications: Continue taking these medications: Aspirin (Adult Low Dose Aspirin EC) 81 MG TABLET.DR 1 Tablet ORAL DAILY Lisinopril (Lisinopril) 20 MG TABLET 1 Tablet ORAL DAILY Qty = 90 Carvedilol (Carvedilol) 25 MG TABLET 1 Tablet ORAL TWICE DAILY Qty = 60 Start taking the following new medications: Apixaban (Eliquis) 5 MG TABLET 1 Tablet ORAL TWICE DAILY Qty = 60 No Refills Copies To: UNKNOWN
--- NOTE | 2017-08-24 13:48 | Proc Note Endoscopy ---
Endoscopy Procedure Medical History: unchanged (see meditech) Mental Status: alert/oriented Heart/Lung Eval Prior to Sedation: within normal limits Candidate for Sedation? Yes Procedure Date: 08/24/17 Procedure Type: EGD with feeding tube placement Tool And Die Manager: Sharath Coe MD ASA Classification: IV Indications: Dysphagia, feeding difficulty in a pt s/p CVA and failed swallowing study. Instrument: diagnostic gastroscope Meds Received: MAC Patient's Tolerance: good Complications: none Extent Reached: second part of duodenum Procedure: After getting written informed consent the patient was placed in the left lateral decubitus position with pulse oximetry, cardiac monitoring, and supplemental oxygen given. A bite block was inserted and IV sedation was given until the desired effect was achieved. A high definition upper Olympus endoscope was then inserted into the mouth and advanced to the second portion of the duodenum with little difficulty. Retroflexed views and photodocumentation was obtained. After inspection of the upper GI tract as described above the location of the PEG tube was determined by transillumination and finger indentation. This area was located in the antrum of the stomach and the left upper quadrant of the abdomen. The skin was then cleaned with Betadine and draped in a sterile fashion. 1% lidocaine without epinephrine was used to anesthetize the skin and the finder needle was seen entering the stomach endoscopically. A scalpel was used to make a 1 cm wide incision half a centimeter deep. An 18-gauge needle with catheter sheath was then inserted into the gastric lumen, and a floppy plastic wire was fed through the sheath, grabbed with a snare, and removed from the patient's mouth. The PEG tube was then attached to the wire and pulled antegrade without difficulty until the bumper abutted the gastric wall. The scope was then reintroduced to the patient's mouth and endoscopic confirmation of the PEG tube was obtained. The scope was then removed from the patient and the procedure was terminated. Findings: Esophagus: The esophageal mucosa was grossly normal in appearance and there was a normal-appearing Z line at 44 cm from the incisors. Stomach: The gastric mucosa was grossly normal in appearance. There were no ulcers, erosions, or masses appreciated. Distention and peristalsis of the stomach appeared normal. Retroflexed views were normal and did not revealed a small hiatal hernia. As stated in the procedure section of this report a feeding tube was placed without incident in the antrum. Duodenum: The duodenal bulb, sweep, and folds were grossly normal in appearance. Impression: 1. Small hiatal hernia. 2. Grossly normal gastric mucosa status post uneventful PEG placement in the antrum. Recommendations: 1. Would monitor the feeding tube for signs of infection or bleeding. 2. Would hold anticoagulation until tomorrow. 3. Apply a dry sterile dressing daily to the PEG incision. 4. Feeding tube may be used for medications today and if no complications would start tube feeds in the morning.
[2017-08-24 15:30] VITALS: BP 146/80
--- NOTE | 2017-08-24 20:37 | RADIOLOGY REPORT ---
EXAMINATION: XR PORTABLE CHEST CLINICAL INFORMATION: Congestion COMPARISON: 10/18/2017 TECHNIQUE: Portable frontal view of the chest was obtained. FINDINGS: Left-sided persistent opacity. Possibly mild increase. I suspect an effusion. Left basilar infiltrate would need to be considered as well. The right lung is comparable to previous. There is evidence of vascular congestion here. IMPRESSION: Findings suggest vascular congestion. Persistent opacity in left possibly mildly increasing. I suspect an effusion. Adjacent atelectasis or infiltrate or possibly edema would need to be considered.
[2017-08-24 21:37] VITALS: BP 142/80
--- NOTE | 2017-08-24 21:57 | PN- Cardiology ---
Subjective Subjective: * Patient is more verbal with less slurring of speech and improved movement of his left arm. He denies any symptoms. * PEG inserted today since the patient is at risk for aspiration based on barium swallow. * Mild pulmonary congestion on X-ray with pleural effusion Objective Vital Signs and I&Os Vital Signs Date Time Temp Pulse Resp B/P B/P Pulse O2 O2 Flow FiO2 Mean Ox Delivery Rate 08/24 2136 98.2 107 22 142/80 92 Nasal 5.0L Cannula 08/24 2132 107 142/80 08/24 1600 Nasal 2.0L Cannula 08/24 1530 98.6 89 22 146/80 95 08/24 0812 92 Room Air Room Air 08/24 0800 96 Room Air 08/24 0630 98.1 108 24 144/83 90 08/24 0000 94 Room Air 08/23 2300 98.2 94 20 130/76 91 Intake & Output 08/24 1600 08/24 0800 08/24 0000 08/23 1600 08/23 0800 08/23 0000 Intake Total 600 0 675 838 775 318 Output Total 500 225 300 250 Balance 100 -225 375 838 525 318 Intake, IV 600 675 838 175 78 Intake, Oral 0 0 Intake, Other 600 240 Number 1 3 Bowel Movements Output, Urine 500 225 300 250 Patient 196 lb 196 lb 203 lb Weight Weight Bed scale Measurement Method Physical Exam: General: WD/obese; alert and responsive Neck: no JVD, no carotid bruit Heart: RRR, no murmur Lungs: clear bilaterally Extremities: 1+ bilateral pedal edema with improved erythema Neuro: decreased movement of left arm and hand Assessment/Plan Assessment/Plan * This patient continues to have some difficulty speaking but otherwise appears alert and appropriately responsive. He does have decreased movement of his left arm consistent with a CVA which is certainly a possibility considering his initial presentation in atrial fibrillation. Restart Eliquis at 5mg BID tomorrow for stroke prophylaxis in the setting of paroxysmal atrial fibrillation. * This patient had a rise in cardiac enzymes consistent with a type 2 ME upon initial presentation. He has no chest discomfort. Continue aspirin at 81mg daily after Eliquis started and continue a statin and coreg. * Blood pressure is in the low normal range. The patient is developing some pulmonary congestion. Begin Lasix 40mg down PEG daily. Continue telemetry? No
[2017-08-25 07:15] VITALS: BP 128/66
--- NOTE | 2017-08-25 08:42 | PN- Housestaff ---
Subjective Follow-up For: 1. Acute respiratory failure; resolved. 2. Toxic metabolic encephalopathy; resolving 3. Stroke; acute right abreu radiata infarct. With left-sided weakness and severe dysarthria and dysphagia. 4. New onset atrial fibrillation. Status post emergent cardioversion. 5. Elevated troponin secondary to type II myocardial infarction 6. Hypernatremia; secondary to volume depletion. resolved 8. Dysphagia secondary to stroke; scheduled for PEG tube placement. 9. Small apical thrombus. Complaints: no complaints Tele-Events Since Last Visit: Off telemetry. Subjective: Mr. Pike seemed more lethargic compared to yesterday. As per the , he received 1 dose of Lasix after they reviewed the chest x-ray. He remained afebrile overnight. PEG tube was placed yesterday, which was uneventful. Anticoagulation and tube feeds started this a.m. Continues to have a sitter in place. Review of Systems Constitutional: Reports: see HPI. Objective Last 24 Hrs of Vital Signs/I&O Vital Signs Date Time Temp Pulse Resp B/P B/P Pulse O2 O2 Flow FiO2 Mean Ox Delivery Rate 08/25 0715 98.2 77 18 128/66 97 Nasal Cannula 08/25 0000 Nasal 4.0L Cannula 08/24 2319 92 Nasal 4.0L Cannula 08/247 98.2 107 22 142/80 92 Nasal 5.0L Cannula 08/24 2133 107 142/80 08/24 1600 Nasal 2.0L Cannula 08/24 1530 98.6 89 22 146/80 95 Intake & Output 08/25 1600 08/25 0800 08/25 0000 Intake Total 30 450 Output Total Balance 30 450 Intake, IV 30 450 Intake, Oral 0 0 Number 0 Bowel Movements Patient 194 lb Weight Weight Bed scale Measurement Method Physical Exam General Appearance: No Acute Distress Other Physical Findings: General Appearance: lethargic, Cooperative, No Acute Distress Cardiovascular: Regular Rate Lungs: Ronchi likely from secretions, Decreased air movement due to pt couldnt follwo commands well. Abdomen: Soft, No Tenderness, PEG tube in place, no erythema around it. Extremities: BLE +1 edema Neuro exam- limited due to non cooperation. Current Medications: Current Medications Sig/Richard Start time Last Medication Dose Route Stop Time Status Admin Albuterol Sulfate 3 ML EVERY 4 HRS/AWAKE 08/15 1999 AC 08/24 INH 2057 Apixaban 5 MG BID 08/25 1000 AC PO Aspirin 81 MG DAILY 08/17 1000 AC 08/22 PO 0913 Atorvastatin Calcium 80 MG 1700 08/16 1730 AC 08/24 PO 1736 Carvedilol 25 MG BID 08/11 1245 AC 08/24 PO 2133 Cefazolin Sodium 1,000 MG ONCE ONE 08/24 1200 DC IV 08/24 1201 Chlorhexidine 1 GM .STK-MED ONE 08/24 1406 DC Gluconate TOP 08/24 1407 Chlorhexidine 10 ML TID 08/21 1814 AC 08/24 Gluconate PO 2134 Dextrose/Water 1,000 ML Q13H 08/23 0300 DC 08/24 IV 0642 Docusate Sodium 100 MG DAILY NEEDED PRN 08/11 1230 AC PO Furosemide 40 MG ONCE ONE 08/24 2115 DC 08/24 IV 08/25 2115 2125 Glycerin 2 SPRAY Q2P PRN 08/11 0215 AC 08/20 PO 1841 Lidocaine 50 ML .STK-MED ONE 08/24 1407 DC TOP 08/24 1408 Loratadine 10 MG DAILY 08/21 1813 AC 08/22 PO 0913 Pantoprazole Sodium 40 MG DAILY 08/15 1000 AC 08/24 IV 1024 Patient Medication 1 ED ONE ONE 08/24 1600 DC Teaching ED 08/24 1601 Potassium Chloride 40 MEQ DAILY 08/16 1000 AC 08/22 PO 0914 Senna/Docusate Sodium 1 TAB BID PRN 08/11 1504 AC 08/18 PO 1009 Sodium Chloride 2 SPRAY Q4P PRN 08/18 1000 AC WENDI Last 24 Hrs of Lab/Zackery Results Last 24 Hrs of Labs/Mics: Laboratory Tests 08/25/17 0610: Sodium Pending, Potassium Pending, Chloride Pending, Carbon Dioxide Pending, Anion Gap Pending, BUN Pending, Creatinine Pending, BUN/Creatinine Ratio Pending , PT Pending, INR Pending, CBC w Diff Pending, WBC Pending, RBC Pending, Hgb Pending, Hct Pending, MCV Pending, MCH Pending, MCHC Pending, RDW Pending, Plt Count Pending, MPV Pending Assessment/Plan Assessment: 72-year-old male with history of CHF, hypertension, previous syncopal episode, presented with altered mental status and shortness of breath, initially being treated for AMS, aspiration pneumonia and RICHI and Left lower leg cellulitis, treated with Doxy, ceftriaxone, vancomycin, and was later with vancomycin and Ceftazidime. Patient had LP on 08/06/17 which was negative. Problem List 1. Acute respiratory failure; resolved. 2. Toxic metabolic encephalopathy; resolving 3. Stroke; acute right abreu radiata infarct. With left-sided weakness and severe dysarthria and dysphagia. 4. New onset atrial fibrillation. Status post emergent cardioversion. 5. Elevated troponin secondary to type II myocardial infarction 6. Hypernatremia; secondary to volume depletion. resolved 8. Dysphagia secondary to stroke s/p PEG tube placement. 9. Small apical thrombus. Plan -Supplemental O2, however patient had been breathing under RA without desaturation. -NGT pulled out 08/23, pending GI procedure for possible PEG tube -PEG tube placed on 08/24, Tube feeds restarted -TRC with Nebs/Mucomyst as needed. -Aggressive pulmonary toilet/ Chest PT -On Heparin GGT so far, given cardiac thrombus, started eliquis 08/25/17 after PEG placement -Aspirin 81 mg PO Daily -Ciprofloxacin for aspirational pneumonia course completed 08/20. -Protonix 40 mg IV Daily could be dc'ed -Atorvastatin 80 mg PO Daily -Continue meds: Carvedilol, Colace, Senna -F/U cultures & Sensitivites; NGTD -Pain control PRN -CXR revealed increased vascular congestion, given lasix 40mg daily. Consider lasix as needed. -NPO, PEG tube. -DVT PPx with ALPS -FULL CODE Problem List: 1. Encephalopathy 2. Thrombus of left atrial appendage 3. Acute respiratory failure 4. Elevated troponin Pain Ratin (unable to assess) Pain Location: unable to assess Pain Goal: Pain 4 or less Pain Plan: tynelol prn Tomorrow's Labs & Rationales: cbc to check on leucocytosis BEP to monitor sodium.
[2017-08-25 08:44] LABS: PT 15.2 SEC (9.4-12.5)
[2017-08-25 08:54] LABS: ABSOLUTE BASOPHIL COUNT 0 /CUMM (0.0-0.2); ABSOLUTE EOSINOPHIL COUNT 0.5 /CUMM (0.0-0.7); ABSOLUTE GRANULOCYTE CT 4.4 /CUMM (1.4-6.5); ABSOLUTE LYMPH COUNT 0.9 /CUMM (1.2-3.4); ABSOLUTE MONOCYTE COUNT 0.7 /CUMM (0.10-0.60); BASOPHIL % 0.1 % (0.0-2.0); EOSINOPHIL % 7.6 % (0-5); GRANULOCYTE % 67.8 % (42.2-75.2); HEMATOCRIT 29.5 % (42-52); MEAN CORPUSCULAR HGB 32.8 PG (27.0-31.0); MEAN CORPUSCULAR HGB CONC 33.5 G/DL (33.0-37.0); MEAN CORPUSCULAR VOLUME 97.9 FL (80.0-94.0); MEAN PLATELET VOLUME 9.8 FL (7.4-10.4); PLATELET COUNT 229 /CUMM (130-400); RBC DISTRIBUTION WIDTH 19.2 % (11.5-14.5); RED BLOOD CELL CT 3.01 /CUMM (4.70-6.10); WHITE BLOOD CELL COUNT 6.5 /CUMM (4.8-10.8)
--- NOTE | 2017-08-25 12:30 | PN- Att Addend ---
Attending Addendum Attending Brief Note Patient seen and examined. Plan of care discussed with the medical team and the patient. Available lab work and radiology test reports were reviewed. Respond to be awake lying in bed without any distress. Is able to answer questions and follow commands. He is able to lift his left hand but appears still weak. He denies any chest pain fever chills nausea vomiting or abdominal pain. She status post PEG tube insertion on August 24 Exam: General: Patient awake but lethargic and without any distress CVS: S1 plus S2 without any murmur or gallops Chest: Few scattered crepitation without any wheeze. There is no respiratory distress. 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 with left-sided weakness about 3 over 5 Extremities: No edema; no clubbing or cyanosis noted Current Medications Sig/Richard Start time Last Medication Dose Route Stop Time Status Admin Albuterol Sulfate 3 ML EVERY 4 HRS/AWAKE 08/15 1999 AC 08/25 INH 1155 Apixaban 5 MG BID 08/25 1000 AC 08/25 PO 1144 Aspirin 81 MG DAILY 08/17 1000 AC 08/25 PO 1143 Atorvastatin Calcium 80 MG 1700 08/16 1730 AC 08/24 PO 1736 Carvedilol 25 MG BID 08/11 1245 AC 08/25 PO 1143 Chlorhexidine 1 GM .STK-MED ONE 08/24 1406 DC Gluconate TOP 08/24 1407 Chlorhexidine 10 ML TID 08/21 1814 AC 08/25 Gluconate PO 1145 Dextrose/Water 1,000 ML Q13H 08/23 0300 MO 08/24 IV 0642 Docusate Sodium 100 MG DAILY NEEDED PRN 08/11 1230 AC PO Furosemide 40 MG ONCE ONE 08/24 2115 DC 08/24 IV 08/24 211 2125 Glycerin 2 SPRAY Q2P PRN 08/11 0215 AC 08/20 PO 1841 Lidocaine 50 ML .STK-MED ONE 08/24 1407 MO TOP 08/24 1408 Loratadine 10 MG DAILY 08/21 1813 AC 08/25 PO 1143 Pantoprazole Sodium 40 MG DAILY 08/15 1000 AC 08/25 IV 1142 Patient Medication 1 ED ONE ONE 08/24 1600 DC Teaching ED 08/24 1601 Potassium Chloride 40 MEQ DAILY 08/16 1000 AC 08/25 PO 1143 Senna/Docusate Sodium 1 TAB BID PRN 08/11 1504 AC 08/18 PO 1009 Sodium Chloride 2 SPRAY Q4P PRN 08/18 1000 AC WENDI Laboratory Tests 08/25/17 0610: Anion Gap 5, Estimated GFR > 60, BUN/Creatinine Ratio 20.0, PT 15.2 H, INR 1.39 H, CBC w Diff NO MAN DIFF REQ, RBC 3.01 L, MCV 97.9 H, MCH 32.8 H, MCHC 33.5 , RDW 19.2 H, MPV 9.8, Gran % 67.8, Lymphocytes % 13.7 L, Monocytes % 10.8 H, Eosinophils % 7.6 H, Basophils % 0.1, Absolute Granulocytes 4.4, Absolute Lymphocytes 0.9 L, Absolute Monocytes 0.7 H, Absolute Eosinophils 0.5, Absolute Basophils 0 08/23/17 1220: APTT 74 H 08/23/17 0355: PT 15.6 H, INR 1.43 H 08/23/17 0355: Anion Gap 4 L, Estimated GFR > 60, BUN/Creatinine Ratio 30.0 H, APTT > 120 *H 08/22/17 1740: APTT 35 Vital Signs Date Time Temp Pulse Resp B/P B/P Pulse O2 O2 Flow FiO2 Mean Ox Delivery Rate 08/25 1156 96 Nasal 2.0L Cannula 08/25 1143 78 104/50 08/25 0844 98 Nasal 4.0L Cannula 08/25 0715 98.2 77 18 128/66 97 Nasal Cannula 08/25 0000 Nasal 4.0L Cannula 08/24 2319 92 Nasal 4.0L Cannula 08/247 98.2 107 22 142/80 92 Nasal 5.0L Cannula 08/243 107 142/80 08/24 1600 Nasal 2.0L Cannula 08/24 1530 98.6 89 22 146/80 95 Intake & Output 08/25 1600 08/25 0800 08/25 0000 Intake Total 30 450 Output Total Balance 30 450 Intake, IV 30 450 Intake, Oral 0 0 Number 0 Bowel Movements Patient 194 lb Weight Weight Bed scale Measurement Method Chest x-ray Findings suggest vascular congestion. Persistent opacity in left possibly mildly increasing. I suspect an effusion. Adjacent atelectasis or infiltrate or possibly edema would need to be considered. Assessment 1. Acute respiratory failure; resolved. Chest x-ray done yesterday shows passive congestion however patient's hypoxia has improved and is requiring less oxygen 2. Toxic metabolic encephalopathy; resolving 3. Stroke; acute right abreu radiata infarct. With left-sided weakness and severe dysarthria and dysphagia. 4. New onset atrial fibrillation. Status post emergent cardioversion. 5. Elevated troponin secondary to type II myocardial infarction 6. Hypernatremia; secondary to volume depletion. resolved 8. Dysphagia secondary to stroke; scheduled for PEG tube placement. 9. Small apical thrombus. 10. Thus post PEG insertion August 24 Plan * Start tube feeding through PEG tube * Continue eliquis * DC IV Protonix * Once his goal rate of tube feeding is reached patient may be able to leave for short-term rehabilitation
[2017-08-25 16:06] VITALS: BP 118/58
[2017-08-25 22:09] VITALS: BP 122/60
[2017-08-26 06:00] VITALS: BP 126/62
--- NOTE | 2017-08-26 08:05 | PN- Housestaff ---
Subjective Follow-up For: 1. Acute respiratory failure; resolved. 2. Toxic metabolic encephalopathy; resolving 3. Stroke; acute right abreu radiata infarct. With left-sided weakness and severe dysarthria and dysphagia. 4. New onset atrial fibrillation. Status post emergent cardioversion. 5. Elevated troponin secondary to type II myocardial infarction 6. Hypernatremia; secondary to volume depletion. resolved 8. Dysphagia secondary to stroke; scheduled for PEG tube placement. 9. Small apical thrombus. Subjective: Denies CP, SOB, nausea, vomiting Review of Systems Constitutional: Reports: see HPI. Objective Last 24 Hrs of Vital Signs/I&O Vital Signs Date Time Temp Pulse Resp B/P B/P Pulse O2 O2 Flow FiO2 Mean Ox Delivery Rate 08/26 0818 98 Nasal 2.0L Cannula 08/26 0600 98.4 68 18 126/62 94 Nasal 2.0L Cannula 08/26 0000 Nasal 2.0L Cannula 08/25 2209 98.8 89 20 122/60 93 Nasal Cannula 08/25 2156 98.8 71 18 118/58 08/25 1755 96 Nasal 2.0L Cannula 08/25 1720 Nasal 2.0L Cannula 08/25 1606 98.8 71 18 118/58 91 Nasal 2.0L Cannula 08/25 1600 Nasal 2.0L Cannula 08/25 1156 96 Nasal 2.0L Cannula 08/25 1143 78 104/50 08/25 0844 98 Nasal 4.0L Cannula Intake & Output 08/26 1600 08/26 0800 08/26 0000 Intake Total 480 250 Output Total Balance 480 250 Intake, Tube 480 250 Feeding Patient 186 lb Weight Weight Bed scale Measurement Method Physical Exam General Appearance: Alert, Oriented X3, Cooperative, ON 1LNC Cardiovascular: IRREGULAR RATE Lungs: Clear to Auscultation, Normal Air Movement Abdomen: Normal Bowel Sounds, Soft, No Tenderness Extremities: BL 1+ edema, healing wounds, skin discoloration Current Medications: Current Medications Sig/Richard Start time Last Medication Dose Route Stop Time Status Admin Albuterol Sulfate 3 ML EVERY 4 HRS/AWAKE 08/15 1999 AC 08/26 INH 0751 Apixaban 5 MG BID 08/25 1000 AC 08/25 PO 2156 Aspirin 81 MG DAILY 08/17 1000 AC 08/25 PO 1143 Atorvastatin Calcium 80 MG 1700 08/16 1730 AC 08/25 PO 1654 Carvedilol 25 MG BID 08/11 1245 AC 08/25 PO 2156 Chlorhexidine 10 ML TID 08/21 1814 AC 08/25 Gluconate PO 215 Docusate Sodium 100 MG DAILY NEEDED PRN 08/11 1230 AC PO Glycerin 2 SPRAY Q2P PRN 08/11 0215 AC 08/20 PO 1841 Loratadine 10 MG DAILY 08/21 1813 AC 08/25 PO 1143 Pantoprazole Sodium 40 MG DAILY 08/15 1000 DC 08/25 IV 1142 Potassium Chloride 40 MEQ DAILY 08/16 1000 AC 08/25 PO 1143 Senna/Docusate Sodium 1 TAB BID PRN 08/11 1504 AC 08/18 PO 1009 Sodium Chloride 2 SPRAY Q4P PRN 08/18 1000 AC WENDI Last 24 Hrs of Lab/Zackery Results Last 24 Hrs of Labs/Mics: Laboratory Tests 08/26/17 0738: Sodium Pending, Potassium Pending, Chloride Pending, Carbon Dioxide Pending, Anion Gap Pending, BUN Pending, Creatinine Pending, BUN/Creatinine Ratio Pending , CBC w Diff Pending, WBC Pending, RBC Pending, Hgb Pending, Hct Pending, MCV Pending, MCH Pending, MCHC Pending, RDW Pending, Plt Count Pending, MPV Pending Assessment/Plan Assessment: Mr. Pike is a 72-year-old male with history of CHF, hypertension, previous syncopal episode, presented with altered mental status and shortness of breath, initially being treated for AMS, aspiration pneumonia and RICHI and Left lower leg cellulitis, treated with Doxy, ceftriaxone, vancomycin, and was later with vancomycin and Ceftazidime. Patient had LP on 08/06/17 which was negative. Problem list: 1. Acute respiratory failure; resolved. 2. Toxic metabolic encephalopathy; resolving 3. Stroke; acute right abreu radiata infarct. With left-sided weakness and severe dysarthria and dysphagia. 4. New onset atrial fibrillation. Status post emergent cardioversion. 5. Elevated troponin secondary to type II myocardial infarction 6. Hypernatremia; secondary to volume depletion. resolved 8. Dysphagia secondary to stroke; scheduled for PEG tube placement. 9. Small apical thrombus. Plan: continue TRC/nebs PRN Continue Apixaban Continue peg tube feedings Possible discharge to STR Pulm, ID, Cardio recommendations appreciated Diet: Tube feedings DVT PPx with ALPS FULL CODE Problem List: 1. Rapid atrial fibrillation 2. Elevated troponin 3. Hypotension 4. Acute respiratory failure 5. Altered mental state 6. Apical mural thrombus 7. Thrombus of left atrial appendage 8. Encephalopathy Pain Ratin Pain Location: NA Pain Goal: Remain pain free Pain Plan: NA Tomorrow's Labs & Rationales: none
[2017-08-26 08:26] LABS: ABSOLUTE BASOPHIL COUNT 0 /CUMM (0.0-0.2); ABSOLUTE EOSINOPHIL COUNT 0.6 /CUMM (0.0-0.7); ABSOLUTE GRANULOCYTE CT 4.8 /CUMM (1.4-6.5); ABSOLUTE LYMPH COUNT 0.7 /CUMM (1.2-3.4); ABSOLUTE MONOCYTE COUNT 0.7 /CUMM (0.10-0.60); BASOPHIL % 0.1 % (0.0-2.0); EOSINOPHIL % 8.2 % (0-5); GRANULOCYTE % 70.6 % (42.2-75.2); HEMATOCRIT 31.3 % (42-52); MEAN CORPUSCULAR HGB 32.9 PG (27.0-31.0); MEAN CORPUSCULAR HGB CONC 33.3 G/DL (33.0-37.0); MEAN CORPUSCULAR VOLUME 98.9 FL (80.0-94.0); MEAN PLATELET VOLUME 8.9 FL (7.4-10.4); PLATELET COUNT 261 /CUMM (130-400); RBC DISTRIBUTION WIDTH 18.8 % (11.5-14.5); RED BLOOD CELL CT 3.16 /CUMM (4.70-6.10); WHITE BLOOD CELL COUNT 6.9 /CUMM (4.8-10.8)
--- NOTE | 2017-08-26 13:13 | PN- Att Addend ---
Attending Addendum Attending Brief Note Patient seen and examined. Plan of care discussed with the medical team and the patient. Available lab work and radiology test reports were reviewed. Patient is found to be confused. He is noted to have taken off his gown. He has a hallway monitor. He is without any distress. Is able to answer questions and follow some commands. He is able to lift his left hand but appears still weak. He denies any chest pain fever chills nausea vomiting or abdominal pain. She status post PEG tube insertion on August 24 Exam: General: Patient awake but lethargic and without any distress; appears confused CVS: S1 plus S2 without any murmur or gallops Chest: Few scattered crepitation without any wheeze. There is no respiratory distress. 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 Acute respiratory failure; resolved. Chest x-ray done yesterday shows passive congestion however patient's hypoxia has improved and is requiring less oxygen 2. Toxic metabolic encephalopathy; resolving 3. Stroke; acute right abreu radiata infarct. With left-sided weakness and severe dysarthria and dysphagia. 4. New onset atrial fibrillation. Status post emergent cardioversion. 5. Elevated troponin secondary to type II myocardial infarction 6. Hypernatremia; secondary to volume depletion. resolved 8. Dysphagia secondary to stroke; scheduled for PEG tube placement. 9. Small apical thrombus. 10. Thus post PEG insertion August 24 Plan * Continue tube feeding through PEG tube * Elevate head end of bed; aspiration precautions * Continue eliquis * DC IV Protonix * Once his goal rate of tube feeding is reached patient may be able to leave for short-term rehabilitation * no need to repeat labs tomorrow Current Medications Sig/Richard Start time Last Medication Dose Route Stop Time Status Admin Albuterol Sulfate 3 ML EVERY 4 HRS/AWAKE 08/14 2000 AC 08/26 INH 1204 Apixaban 5 MG BID 08/25 1000 AC 08/26 PO 0814 Aspirin 81 MG DAILY 08/17 1000 AC 08/26 PO 0814 Atorvastatin Calcium 80 MG 1700 08/16 1730 AC 08/25 PO 1654 Carvedilol 25 MG BID 08/11 1245 AC 08/26 PO 0814 Chlorhexidine 10 ML TID 08/21 1813 AC 08/26 Gluconate PO 0817 Docusate Sodium 100 MG DAILY NEEDED PRN 08/11 1230 AC PO Glycerin 2 SPRAY Q2P PRN 08/11 0215 AC 08/20 PO 1841 Loratadine 10 MG DAILY 08/21 181 AC 08/26 PO 0814 Pantoprazole Sodium 40 MG DAILY 08/15 1000 DC 08/25 IV 1142 Potassium Chloride 40 MEQ DAILY 08/16 1000 AC 08/26 PO 0814 Senna/Docusate Sodium 1 TAB BID PRN 08/11 1504 AC 08/18 PO 1009 Sodium Chloride 2 SPRAY Q4P PRN 08/18 1000 AC WENDI Laboratory Tests 08/26/17 0738: Anion Gap 5, Estimated GFR > 60, BUN/Creatinine Ratio 26.0 H, CBC w Diff NO MAN DIFF REQ, RBC 3.16 L, MCV 98.9 H, MCH 32.9 H, MCHC 33.3, RDW 18.8 H, MPV 8.9 , Gran % 70.6, Lymphocytes % 10.4 L, Monocytes % 10.7 H, Eosinophils % 8.2 H, Basophils % 0.1, Absolute Granulocytes 4.8, Absolute Lymphocytes 0.7 L, Absolute Monocytes 0.7 H, Absolute Eosinophils 0.6, Absolute Basophils 0 08/25/17 0610: Anion Gap 5, Estimated GFR > 60, BUN/Creatinine Ratio 20.0, PT 15.2 H, INR 1.39 H, CBC w Diff NO MAN DIFF REQ, RBC 3.01 L, MCV 97.9 H, MCH 32.8 H, MCHC 33.5 , RDW 19.2 H, MPV 9.8, Gran % 67.8, Lymphocytes % 13.7 L, Monocytes % 10.8 H, Eosinophils % 7.6 H, Basophils % 0.1, Absolute Granulocytes 4.4, Absolute Lymphocytes 0.9 L, Absolute Monocytes 0.7 H, Absolute Eosinophils 0.5, Absolute Basophils 0 Vital Signs Date Time Temp Pulse Resp B/P B/P Pulse O2 O2 Flow FiO2 Mean Ox Delivery Rate 08/26 0818 98 Nasal 2.0L Cannula 08/26 0800 Nasal 1.0L Cannula 08/26 0600 98.4 68 18 126/62 94 Nasal 2.0L Cannula 08/26 0000 Nasal 2.0L Cannula 03/24 2209 98.8 89 20 122/60 93 Nasal Cannula 08/25 2156 98.8 71 18 118/58 08/25 1755 96 Nasal 2.0L Cannula 08/25 1720 Nasal 2.0L Cannula 08/25 1606 98.8 71 18 118/58 91 Nasal 2.0L Cannula 08/25 1600 Nasal 2.0L Cannula Intake & Output 08/26 1600 08/26 0800 08/26 0000 Intake Total 480 250 Output Total Balance 480 250 Intake, Tube 480 250 Feeding Patient 186 lb Weight Weight Bed scale Measurement Method
[2017-08-26 14:50] VITALS: BP 120/60
[2017-08-26 22:46] VITALS: BP 118/60
[2017-08-27 07:13] VITALS: BP 108/56
--- NOTE | 2017-08-27 07:24 | PN- Housestaff ---
Prudencio Pickett 08/27/17 0724: Subjective Follow-up For: 1. Acute respiratory failure; resolved. 2. Toxic metabolic encephalopathy; resolving 3. Stroke; acute right abreu radiata infarct. With left-sided weakness and severe dysarthria and dysphagia. 4. New onset atrial fibrillation. Status post emergent cardioversion. 5. Elevated troponin secondary to type II myocardial infarction 6. Hypernatremia; secondary to volume depletion. resolved 8. Dysphagia secondary to stroke; scheduled for PEG tube placement. 9. Small apical thrombus. Subjective: No acute events overnight Review of Systems Constitutional: Reports: see HPI. Objective Last 24 Hrs of Vital Signs/I&O Vital Signs Date Time Temp Pulse Resp B/P B/P Pulse O2 O2 Flow FiO2 Mean Ox Delivery Rate 08/27 0713 100.1 99 18 108/56 93 Nasal Cannula 08/27 0000 Room Air 08/26 2246 99.4 89 20 118/60 93 Nasal Cannula 08/26 2125 99.4 89 20 118/60 08/26 1600 93 Room Air 08/26 1450 98.5 69 20 120/60 92 08/26 0818 98 Nasal 2.0L Cannula Intake & Output 08/27 1600 08/27 0800 08/27 0000 Intake Total 390 Output Total Balance 390 Intake, Oral 0 Intake, Tube 280 Feeding Intake, Tube 110 Irrigant Patient 189 lb Weight Weight Bed scale Measurement Method Physical Exam General Appearance: Disoriented, lethargic Cardiovascular: Regular Rate, Normal S1, Normal S2 Lungs: Clear to Auscultation, Normal Air Movement Abdomen: Normal Bowel Sounds, Soft, No Tenderness Current Medications: Current Medications Sig/Richard Start time Last Medication Dose Route Stop Time Status Admin Albuterol Sulfate 3 ML EVERY 4 HRS/AWAKE 08/15 1999 AC 08/26 INH 2004 Apixaban 5 MG BID 08/25 1000 AC 08/26 PO 2125 Aspirin 81 MG DAILY 08/17 1000 AC 08/26 PO 0814 Atorvastatin Calcium 80 MG 1700 08/16 1730 AC 08/26 PO 1614 Carvedilol 25 MG BID 08/11 1245 AC 08/26 PO 2125 Chlorhexidine 10 ML TID 08/21 1814 AC 08/26 Gluconate PO 212 Docusate Sodium 100 MG DAILY NEEDED PRN 08/11 1230 AC PO Glycerin 2 SPRAY Q2P PRN 08/11 0215 AC 08/20 PO 1841 Loratadine 10 MG DAILY 08/21 1813 AC 08/26 PO 0814 Potassium Chloride 40 MEQ DAILY 08/16 1000 AC 08/26 PO 0814 Senna/Docusate Sodium 1 TAB BID PRN 08/11 1504 AC 08/18 PO 1009 Sodium Chloride 2 SPRAY Q4P PRN 08/18 1000 AC WENDI Lines/Diet/Fluids Catheters/Tubes: PEG Assessment/Plan Assessment: Mr. Pike is a 72-year-old male with history of CHF, hypertension, previous syncopal episode, presented with altered mental status and shortness of breath, initially being treated for AMS, aspiration pneumonia and RICHI and Left lower leg cellulitis, treated with Doxy, ceftriaxone, vancomycin, and was later with vancomycin and Ceftazidime. Patient had LP on 08/06/17 which was negative. Problem list: 1. Acute respiratory failure; resolved. 2. Toxic metabolic encephalopathy; resolving 3. Stroke; acute right abreu radiata infarct. With left-sided weakness and severe dysarthria and dysphagia. 4. New onset atrial fibrillation. Status post emergent cardioversion. 5. Elevated troponin secondary to type II myocardial infarction 6. Hypernatremia; secondary to volume depletion. resolved 8. Dysphagia secondary to stroke; scheduled for PEG tube placement. 9. Small apical thrombus. Plan: continue TRC/nebs PRN Continue Apixaban Continue peg tube feedings Possible discharge to [facility] tomorrow US doppler L ext to r/o DVT Pulm, ID, Cardio recommendations appreciated Diet: Tube feedings DVT PPx with ALPS FULL CODE Problem List: 1. Rapid atrial fibrillation 2. Elevated troponin 3. Hypotension 4. Acute respiratory failure 5. Altered mental state 6. Apical mural thrombus 7. Thrombus of left atrial appendage Pain Ratin Pain Location: NA Pain Goal: Remain pain free Pain Plan: NA Tomorrow's Labs & Rationales: none Maria Lennon MD 08/27/17 1151: Attending MD Review Statement Attending Statement Attending MD Statement: examined this patient, discuss w/resident/PA/AUTO BODY MECHANIC, agreed w/resident/PA/AUTO BODY MECHANIC, reviewed EMR data (avail) Attending Assessment/Plan: Patient is more lethargic today, febrile 100.1 yesterday, no obvious signs of infection. Will obtain CXR, send cultures if febrile, continue home medications.
[2017-08-27 11:08] VITALS: BP 126/62
--- NOTE | 2017-08-27 15:13 | RADIOLOGY REPORT ---
EXAMINATION: XR PORTABLE CHEST CLINICAL INFORMATION: 72-year-old male with low-grade fever and lethargy. Evaluate for pneumonia. COMPARISON: 08/24/2017 TECHNIQUE: Portable frontal view of the chest was obtained. FINDINGS: Stable cardiomediastinal silhouette. Persistent left basilar airspace disease and small to moderate left pleural effusion. There is central vascular congestion without pulmonary edema. The right lung appears clear. No pneumothorax. No acute osseous abnormality. Similar positioning of the right-sided PICC with the tip projecting in the region of the subclavian vein. IMPRESSION: No significant interval change in left basilar airspace disease and small to moderate left pleural effusion.
[2017-08-27 16:00] VITALS: BP 138/60
--- NOTE | 2017-08-27 17:07 | ULTRASOUND REPORT ---
EXAMINATION: US TRIPLEX LOWER EXTREMITY, LEFT CLINICAL INFORMATION: Leg tenderness. Warmth. COMPARISON: None TECHNIQUE: Color-flow triplex imaging with spectral analysis and compression Doppler were performed on the lower extremity. FINDINGS: Respiratory variation, normal compression and augmented flow are noted throughout the lower extremity. The visualized common femoral vein, superficial femoral vein, profunda femoral vein, popliteal vein and midcalf peroneal and posterior tibial venous segments show no evidence of deep venous thrombosis. There is no Silverio's cyst. IMPRESSION: Normal triplex scan without evidence of deep venous thrombosis involving the lower extremity.
[2017-08-27 23:54] VITALS: BP 120/64
[2017-08-28 06:39] VITALS: BP 138/50
--- NOTE | 2017-08-28 07:15 | PN- Housestaff ---
Prudencio Pickett 08/28/17 0715: Subjective Follow-up For: 1. Acute respiratory failure; resolved. 2. Toxic metabolic encephalopathy s/p Lumbar puncture; resolving 3. Stroke; acute right abreu radiata infarct. With left-sided weakness and severe dysarthria and dysphagia. 4. New onset atrial fibrillation. Status post emergent cardioversion. 5. Elevated troponin secondary to type II myocardial infarction 6. Hypernatremia; secondary to volume depletion. resolved 8. Dysphagia secondary to stroke; scheduled for PEG tube placement. 9. Small apical thrombus. Subjective: Low grade fever overnight Review of Systems Constitutional: Reports: see HPI. Objective Last 24 Hrs of Vital Signs/I&O Vital Signs Date Time Temp Pulse Resp B/P B/P Pulse O2 O2 Flow FiO2 Mean Ox Delivery Rate 08/28 0639 99.3 89 20 138/50 92 Room Air 08/27 2354 100.9 95 20 120/64 92 Room Air 08/27 2314 98.6 08/27 2215 100.9 08/27 2210 95 120/64 08/27 1605 92 Room Air 08/27 1600 Room Air 08/27 1600 99.5 86 20 138/60 93 Room Air 08/27 1115 92 126/62 08/27 1108 99.1 92 28 126/62 93 Room Air 08/27 0846 93 Room Air 08/27 0800 Room Air Intake & Output 08/28 0800 08/28 0000 08/27 1600 Intake Total 780 820 Output Total Balance 780 820 Intake, IV 30 Intake, Oral 0 Intake, Tube 560 560 Feeding Intake, Tube 220 230 Irrigant Physical Exam General Appearance: Lethargic Cardiovascular: Regular Rate, Normal S1, Normal S2, No Murmurs Lungs: Clear to Auscultation Extremities: LLE warmth, skin erythema, without drainage Current Medications: Current Medications Sig/Richard Start time Last Medication Dose Route Stop Time Status Admin Acetaminophen 650 MG ONCE ONE 08/27 2214 DC 08/27 PO 08/27 Albuterol Sulfate 3 ML EVERY 4 HRS/AWAKE 08/15 1999 AC 08/27 INH 1605 Apixaban 5 MG BID 08/25 1000 AC 08/27 PO 2210 Aspirin 81 MG DAILY 08/17 1000 AC 08/27 PO 1114 Atorvastatin Calcium 80 MG 1700 08/16 1730 AC 08/27 PO 1624 Carvedilol 25 MG BID 08/11 1245 AC 08/27 PO 2210 Chlorhexidine 10 ML TID 08/21 1814 AC 08/27 Gluconate PO 2208 Docusate Sodium 100 MG DAILY NEEDED PRN 08/11 1230 AC PO Furosemide 40 MG ONCE ONE 08/27 1415 DC 08/27 IV 08/27 1416 1624 Glycerin 2 SPRAY Q2P PRN 08/11 0215 AC 08/20 PO 1841 Loratadine 10 MG DAILY 08/21 1813 AC 08/27 PO 1115 Potassium Chloride 40 MEQ DAILY 08/16 1000 AC 08/27 PO 1115 Senna/Docusate Sodium 1 TAB BID PRN 08/11 1504 AC 08/18 PO 1009 Sodium Chloride 2 SPRAY Q4P PRN 08/18 1000 AC WENDI Last 24 Hrs of Lab/Zackery Results Last 24 Hrs of Labs/Mics: Microbiology 08/27 2332 BLOOD: Blood Culture - RECD 08/27 2315 BLOOD: Blood Culture - RECD 08/27 2300 URINE ROUT: Urine Culture - RECD 08/27 221 LOWER RESP: Respiratory Culture - COLB 08/27 2210 LOWER RESP: Gram Stain - COLB Assessment/Plan Assessment: Mr. Pike is a 72-year-old male with history of CHF, hypertension, previous syncopal episode, presented with altered mental status and shortness of breath, initially being treated for AMS, aspiration pneumonia and RICHI and Left lower leg cellulitis, treated with Doxy, ceftriaxone, vancomycin, and was later with vancomycin and Ceftazidime. Patient had LP on 08/06/17 which was negative. Problem list: 1. Acute respiratory failure; resolved. 2. Toxic metabolic encephalopathy s/p Lumbar puncture (negative); resolving 3. Stroke; acute right abreu radiata infarct. With left-sided weakness and severe dysarthria and dysphagia. 4. New onset atrial fibrillation. Status post emergent cardioversion. 5. Elevated troponin secondary to type II myocardial infarction 6. Hypernatremia; secondary to volume depletion. resolved 8. Dysphagia secondary to stroke; s/p PEG tube placement. 9. Small apical thrombus. Plan: Start IV Unasyn for ? Cellulitis of LLE Await pancultures for low grade fever continue TRC/nebs PRN Continue Apixaban Continue peg tube feedings Discharge to [facility] today if more alert US doppler L ext to r/o DVT negative CXR showed moderate L pleural effusions, gave IV Lasix 40 mg Pulm, ID, Cardio recommendations appreciated Diet: Tube feedings DVT PPx: Apixaban FULL CODE Problem List: 1. Rapid atrial fibrillation 2. Elevated troponin 3. Hypotension 4. Acute respiratory failure 5. Altered mental state 6. Apical mural thrombus 7. Thrombus of left atrial appendage Pain Ratin Pain Location: NA Pain Goal: Remain pain free Pain Plan: NA Tomorrow's Labs & Rationales: CBC Maria Lennon MD 08/28/17 1136: Attending MD Review Statement Attending Statement Attending MD Statement: examined this patient, discuss w/resident/PA/GRANITE CHIP TERRAZZO FINISHER, agreed w/resident/PA/GRANITE CHIP TERRAZZO FINISHER, reviewed EMR data (avail) Attending Assessment/Plan: Remains lethargic, febrile 100.6 overnight. LLE erythema suggestive of cellulitis. Lungs clear. CXR shows pulmonary vascular congestion, given Lasix yesterday. Started on Unasyn. Will continue Unasyn, follow cultures and continue home medications, work with PT when mental status improves.
[2017-08-28 14:42] VITALS: BP 130/75
--- NOTE | 2017-08-28 16:37 | PN- Infect Dx ---
Subjective Subjective: Asked to evaluate this patient because of recent fevers, up to 101.2 this afternoon. He is unable to provide any reliable history. Objective Last 24 Hrs of Vital Signs/I&O Vital Signs Date Time Temp Pulse Resp B/P B/P Pulse O2 O2 Flow FiO2 Mean Ox Delivery Rate 08/28 1457 Room Air 08/28 1456 101.2 08/28 1442 101.2 94 22 130/75 95 08/28 1421 Room Air 2.0L 08/28 0820 95 Room Air 08/28 0639 99.3 89 20 138/50 92 Room Air 08/27 2354 100.9 95 20 120/64 92 Room Air 08/27 2314 98.6 08/27 2215 100.9 08/27 2210 95 120/64 Intake & Output 08/28 1600 08/28 0800 08/28 0000 Intake Total 890 780 780 Output Total 300 Balance 890 480 780 Intake, Oral 0 Intake, Tube 560 560 560 Feeding Intake, Tube 330 220 220 Irrigant Output, Urine 300 Physical Exam Other Physical Findings: He is lethargic but arousable and in no acute distress Skin mild erythema of the extremities Lungs decreased breath sounds at the left base Heart regular rhythm with no murmur Abdomen is soft, nontender with positive bowel sounds Extremities midline in place in the right upper extremity with no inflammation at the site; patchy erythema of the left lower extremity, tender to palpation laterally with mild swelling but with no fluctuance Results Last 24 Hours of Lab Results: Blood cultures 2 August 27 negative Urine culture August 27 negative Last 24 Hours of Zackery Results: Chest x-ray August 27 left basilar airspace disease with a small to moderate left pleural effusion Recent Imaging Studies: Doppler of the left leg August 27 negative Assessment/Plan ID Impression: Recent fevers, with his white blood cell count remaining normal, possibly secondary to a left lower extremity cellulitis/abscess, with recurrent erythema and localized tenderness, after near resolution of the erythema last week, versus a pulmonary process with a persistent left lower lobe density and left pleural effusion on chest x-ray, though his respiratory status remains quite stable, versus line sepsis, with a midline in place for several weeks, though his blood cultures remain negative, versus a noninfectious process, such as CHF, with his fluid status difficult to interpret as he is incontinent, or drug fever , with persistently elevated eosinophils and a mild persistent rash. Suggestion: 1. Consider ultrasound or CT of the left lower extremity to rule out any fluid collection 2. Consider CT of the chest if his fevers persist 3. Discontinue all nonessential medications 4. Warm compresses to the left lower extremity 5. Continue Unasyn pending above
[2017-08-28 21:33] VITALS: BP 150/64
[2017-08-29 07:00] VITALS: BP 140/70
--- NOTE | 2017-08-29 07:07 | PN- Housestaff ---
Prudencio Pickett 08/29/17 0707: Subjective Follow-up For: 1. Acute respiratory failure; resolved. 2. Toxic metabolic encephalopathy s/p Lumbar puncture; resolving 3. Stroke; acute right abreu radiata infarct. With left-sided weakness and severe dysarthria and dysphagia. 4. New onset atrial fibrillation. Status post emergent cardioversion. 5. Elevated troponin secondary to type II myocardial infarction 6. Hypernatremia; secondary to volume depletion. resolved 8. Dysphagia secondary to stroke; scheduled for PEG tube placement. 9. Small apical thrombus. Subjective: Patient continues to spike a fever this morning but appearance of LLE is improving Review of Systems Constitutional: Reports: see HPI. Objective Last 24 Hrs of Vital Signs/I&O Vital Signs Date Time Temp Pulse Resp B/P B/P Pulse O2 O2 Flow FiO2 Mean Ox Delivery Rate 08/28 2300 98.2 08/28 215 100.7 08/28 2151 97 150/68 08/28 2133 100.2 97 20 150/64 90 Room Air 08/28 1643 93 Room Air 08/28 1457 Room Air 08/28 1456 101.2 08/28 1442 101.2 94 22 130/75 95 08/28 1421 Room Air 2.0L 08/28 0820 95 Room Air Intake & Output 08/29 0800 08/29 0000 08/28 1600 Intake Total 390 890 Output Total Balance 390 890 Intake, Oral 0 Intake, Tube 280 560 Feeding Intake, Tube 110 330 Irrigant Physical Exam General Appearance: Alert, No Acute Distress Cardiovascular: Regular Rate, Normal S1, Normal S2 Lungs: Clear to Auscultation, Normal Air Movement Abdomen: Normal Bowel Sounds, Soft, No Tenderness Extremities: LLE skin erythema and fluid filled blister Current Medications: Current Medications Sig/Richard Start time Last Medication Dose Route Stop Time Status Admin Acetaminophen 650 MG Q6P PRN 08/28 1445 AC 08/28 PO 2154 Albuterol Sulfate 3 ML EVERY 4 HRS/AWAKE 08/15 1999 AC 08/28 INH 2006 Ampicillin Sodium/ 1,500 MG DAILY 08/28 1000 CAN Sulbactam Sodium IV Sodium Chloride 100 ML Ampicillin Sodium/ 1,500 MG Q6H 08/28 0845 AC 08/29 Sulbactam Sodium IV 0232 Sodium Chloride 100 ML Ampicillin Sodium/ 1,500 MG Q6H 08/28 0830 DC Sulbactam Sodium IV Sodium Chloride 100 ML Apixaban 5 MG BID 08/25 1000 AC 08/28 PO 2151 Aspirin 81 MG DAILY 08/17 1000 AC 08/28 PO 1049 Atorvastatin Calcium 80 MG 1700 08/16 1730 AC 08/28 PO 1607 Carvedilol 25 MG BID 08/11 1245 AC 08/28 PO 2151 Chlorhexidine 10 ML TID 08/21 1814 AC 08/28 Gluconate PO 2152 Docusate Sodium 100 MG DAILY NEEDED PRN 08/11 1230 AC PO Glycerin 2 SPRAY Q2P PRN 08/11 0215 AC 08/20 PO 1841 Loratadine 10 MG DAILY 08/21 1813 AC 08/28 PO 1049 Patient Medication 1 ED ONE ONE 08/28 1600 DC 08/28 Teaching ED 08/28 1601 1607 Potassium Chloride 40 MEQ DAILY 08/16 1000 AC 08/28 PO 1048 Senna/Docusate Sodium 1 TAB BID PRN 08/11 1504 AC 08/18 PO 1009 Sodium Chloride 2 SPRAY Q4P PRN 08/18 1000 AC WENDI Last 24 Hrs of Lab/Zackery Results Last 24 Hrs of Labs/Mics: Laboratory Tests 08/29/17 0702: CBC w Diff Pending, WBC Pending, RBC Pending, Hgb Pending, Hct Pending, MCV Pending, MCH Pending, MCHC Pending, RDW Pending, Plt Count Pending, MPV Pending Assessment/Plan Assessment: Mr. Pike is a 72-year-old male with history of CHF, hypertension, previous syncopal episode, presented with altered mental status and shortness of breath, initially being treated for AMS, aspiration pneumonia and RICHI and Left lower leg cellulitis, treated with Doxy, ceftriaxone, vancomycin, and was later with vancomycin and Ceftazidime. Patient had LP on 08/06/17 which was negative. Problem list: 1. Acute respiratory failure; resolved. 2. Toxic metabolic encephalopathy s/p Lumbar puncture (negative); resolving 3. Stroke; acute right abreu radiata infarct. With left-sided weakness and severe dysarthria and dysphagia. 4. New onset atrial fibrillation. Status post emergent cardioversion. 5. Elevated troponin secondary to type II myocardial infarction 6. Hypernatremia; secondary to volume depletion. resolved 8. Dysphagia secondary to stroke; s/p PEG tube placement. 9. Small apical thrombus. 10. LLE Cellulitis Plan: continue IV Unasyn for Cellulitis of LLE RUE doppler to r/o DVT AST/ALT in morning Await final cultures report continue TRC/nebs PRN Continue Apixaban Continue peg tube feedings US doppler L ext to r/o DVT negative CXR showed moderate L pleural effusions, gave IV Lasix [address] chest/abd/pel/LLE today for any acute pathology Pulm, ID, Cardio recommendations appreciated NPO/tube feeds at midnight for Proline in a.m. Diet: Tube feedings DVT PPx: Apixaban FULL CODE Problem List: 1. Rapid atrial fibrillation 2. Elevated troponin 3. Hypotension 4. Acute respiratory failure 5. Altered mental state 6. Apical mural thrombus 7. Thrombus of left atrial appendage Pain Ratin Pain Location: NA Pain Goal: Remain pain free Pain Plan: NA Tomorrow's Labs & Rationales: CBC Maria Lennon MD 08/29/17 1052: Attending MD Review Statement Attending Statement Attending MD Statement: examined this patient, discuss w/resident/PA/MANAGER BRIDGE, agreed w/resident/PA/MANAGER BRIDGE, reviewed EMR data (avail) Attending Assessment/Plan: 72M PMH HFpEF, HTN admitted initially to ICU after being found unresponsive in his home, last seen normal 4 days prior, found to be in rapid atrial fibrillation with hypotension requiring electrical cardioversion, course complicated by left atrial thrombus, found to have right sided CVA with left sided hemiparesis and dysphagia requiring PEG placement. Was set to be seen by physical therapy for rehab placement when he developed a fever and lethargy on with erythema and swelling of the LLE with negative doppler, started on Unasyn for cellulitis. Leg looks better today, less erythematous, still lethargic but improving mental status. 1. LLE cellulitis 2. Metabolic encephalopathy 3. Acute right sided CVA with left hemiparesis 4. Dysphagia secondary to CVA requiring PEG 5. Type 2 myocardial infarction 6. Unstable rapid atrial fibrillation requiring electrical cardioversion 7. Left atrial thrombus Plan - Continue on general medicine - Continue Unasyn - Follow cultures - Follow ID recommendations - Continue Eliquis, ASA, statin, home medications - Continue to work with PT as tolerated - To STR when mental status improves and can participate with STR
[2017-08-29 08:13] LABS: ABSOLUTE BASOPHIL COUNT 0 /CUMM (0.0-0.2); ABSOLUTE EOSINOPHIL COUNT 0.4 /CUMM (0.0-0.7); ABSOLUTE GRANULOCYTE CT 6.9 /CUMM (1.4-6.5); ABSOLUTE LYMPH COUNT 0.9 /CUMM (1.2-3.4); ABSOLUTE MONOCYTE COUNT 0.6 /CUMM (0.10-0.60); BASOPHIL % 0.3 % (0.0-2.0); EOSINOPHIL % 4.9 % (0-5); GRANULOCYTE % 77.9 % (42.2-75.2); HEMATOCRIT 31.4 % (42-52); MEAN CORPUSCULAR HGB 32.8 PG (27.0-31.0); MEAN CORPUSCULAR HGB CONC 32.9 G/DL (33.0-37.0); MEAN CORPUSCULAR VOLUME 99.7 FL (80.0-94.0); MEAN PLATELET VOLUME 8.9 FL (7.4-10.4); PLATELET COUNT 298 /CUMM (130-400); RBC DISTRIBUTION WIDTH 18.8 % (11.5-14.5); RED BLOOD CELL CT 3.15 /CUMM (4.70-6.10); WHITE BLOOD CELL COUNT 8.8 /CUMM (4.8-10.8)
--- NOTE | 2017-08-29 13:05 | CT SCAN REPORT ---
EXAMINATION: CT LOWER EXTREMITY WITHOUT CONTRAST, LEFT CLINICAL INFORMATION: Left lower extremity cellulitis, warmth, swelling, spiking fever on antibiotics. COMPARISON: Ultrasound dated 08/27/2017 TECHNIQUE: Axial multidetector volumetric imaging was obtained through the left lower leg without intravenous contrast material. Multiplanar reformatted images in coronal and sagittal orientations were submitted. DLP: 1265 mGy-cm FINDINGS: Skin thickening and heterogeneous reticulonodular stranding of the subcutaneous fat are present in the left lower leg, with relative sparing of the anterior soft tissues. No discrete subcutaneous fluid collections are identified. There is mild stranding/edema along the superficial fascial planes anterolaterally overlying the calf musculature. No gas is identified. No significant fascial fluid is apparent. Foci of chronic fatty replacement of the soleus and gastrocnemius musculature are noted. Musculature is otherwise unremarkable. No intramuscular collections are identified. No significant knee joint effusion. 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 Mild degenerative arthritis is also present in the talocrural, subtalar, and midfoot joints. No acute osseous abnormalities. No findings of osteomyelitis. Tendons are grossly unremarkable aside from areas of enthesopathic spurring, most notably at the Achilles tendon insertion. There is enthesopathic spurring at the plantar fascial origin. Calcific atherosclerosis is present within the runoff arteries. A few punctate subcutaneous calcifications in the anterior soft tissues are likely due to phleboliths. IMPRESSION: Skin thickening and reticulonodular subcutaneous fat stranding in the left lower leg, consistent with cellulitis. No fluid collections are apparent on this unenhanced study.
--- NOTE | 2017-08-29 13:13 | PN- Infect Dx ---
Subjective Subjective: MAXIMUM TEMPERATURE 101.4. He does not offer any complaints. There is no diarrhea reported. Objective Last 24 Hrs of Vital Signs/I&O Vital Signs Date Time Temp Pulse Resp B/P B/P Pulse O2 O2 Flow FiO2 Mean Ox Delivery Rate 08/29 1225 101.3 08/29 1033 101.4 96 18 115/50 08/29 1001 101.4 08/29 0930 101.4 08/29 0832 93 Room Air 08/29 0700 90 20 140/70 92 08/28 2300 98.2 08/28 2154 100.7 08/28 2151 97 150/68 08/28 2133 100.2 97 20 150/64 90 Room Air 08/28 1643 93 Room Air 08/28 1457 Room Air 08/28 1456 101.2 08/28 1442 101.2 94 22 130/75 95 08/28 1421 Room Air 2.0L Intake & Output 08/29 1600 08/29 0800 08/29 0000 Intake Total 180 390 Output Total Balance 180 390 Intake, Oral 0 0 Intake, Tube 70 280 Feeding Intake, Tube 110 110 Irrigant Physical Exam Other Physical Findings: He is lethargic but arousable in no acute distress Lungs scattered rhonchi bilaterally Heart regular rhythm with no murmur Abdomen is soft, nontender with positive bowel sounds Extremities decreased erythema of the left leg; tender, ecchymotic area with possible fluctuance/swelling on the lateral aspect of the left leg persists; midline in place in the right upper extremity, with no tenderness or erythema, but with right upper extremity edema compared to the left upper extremity Results Last 24 Hours of Lab Results: Laboratory Tests 08/29 0702 Hematology CBC w Diff NO MAN DIFF REQ WBC (4.8 - 10.8 /CUMM) 8.8 RBC (4.70 - 6.10 /CUMM) 3.15 L Hgb (14.0 - 18.0 G/DL) 10.3 L Hct (42 - 52 %) 31.4 L MCV (80.0 - 94.0 FL) 99.7 H MCH (27.0 - 31.0 PG) 32.8 H MCHC (33.0 - 37.0 G/DL) 32.9 L RDW (11.5 - 14.5 %) 18.8 H Plt Count (130 - 400 /CUMM) 298 MPV (7.4 - 10.4 FL) 8.9 Gran % (42.2 - 75.2 %) 77.9 H Lymphocytes % (20.5 - 51.1 %) 10.5 L Monocytes % (1.7 - 9.3 %) 6.4 Eosinophils % (0 - 5 %) 4.9 Basophils % (0.0 - 2.0 %) 0.3 Absolute Granulocytes (1.4 - 6.5 /CUMM) 6.9 H Absolute Lymphocytes (1.2 - 3.4 /CUMM) 0.9 L Absolute Monocytes (0.10 - 0.60 /CUMM) 0.6 Absolute Eosinophils (0.0 - 0.7 /CUMM) 0.4 Absolute Basophils (0.0 - 0.2 /CUMM) 0 Last 24 Hours of Zackery Results: Blood cultures 2 August 27 negative Urine culture August 27 negative Assessment/Plan ID Impression: Persistent fevers with white blood cell count remaining normal now on n Day of treatment for possible cellulitis of the left lower extremity, with decreased erythema compared to yesterday, but with a persistent area of inflammation on the lateral aspect of the leg. An infection or inflammation related to the midline in the right upper extremity is possible, with mild swelling of the right upper extremity raising concern for a DVT, but his blood cultures remain negative. His respiratory status remains stable and his chest x-ray is not suggestive of pneumonia. He has had no diarrhea to suggest C. difficile. Suggestion: 1. Doppler of the right upper extremity 2. Repeat liver enzymes 3. Follow-up CT of the chest, abdomen, pelvis and left lower extremity done earlier today 4. Discontinue all unessential medications 5. Continue Unasyn pending above
--- NOTE | 2017-08-29 15:28 | CT SCAN REPORT ---
EXAMINATION: CT CHEST WITHOUT CONTRAST CT ABDOMEN AND PELVIS WITHOUT CONTRAST CLINICAL INFORMATION: Pleural effusion and chest x-ray, spiking fever on antibiotics. Assess for acute pathology. Patient on Eliquis. COMPARISON: Chest x-ray 08/27/2017. CT scan of the abdomen and pelvis 08/02/2017. TECHNIQUE: Multidetector volumetric imaging was performed from the thoracic inlet through the pubic symphysis without contrast. Sagittal and coronal reformatted images were obtained on the technologist's workstation. Axial MIP volume rendering provided. DLP: 665.27 mGy-cm. FINDINGS: CHEST: LUNGS: There are areas of linear opacification in the anterior left upper and right malleolus consistent with atelectasis. There is atelectasis and likely developing consolidation in the left lower lobe. MEDIASTINUM: The thyroid gland appears relatively small. The heart is moderately prominent. PERICARDIUM/PLEURA: There are moderate left and small right pleural effusions. There is fluid in the left major fissure. There is a small pericardial effusion. CHEST WALL/AXILLA: No masses are demonstrated in the chest wall and there is no axillary lymphadenopathy. ABDOMEN/PELVIS: LIVER, GALLBLADDER, BILIARY TREE: The liver is normal in size, shape, and attenuation. No focal hepatic lesion or biliary ductal dilatation is present. The gallbladder is unremarkable with no evidence of radiopaque gallstones, gallbladder wall thickening, or pericholecystic inflammatory changes. PANCREAS: Unremarkable. SPLEEN: Unremarkable. ADRENAL GLANDS: The adrenal glands nonenlarged. KIDNEYS AND URETERS: The kidneys are normal in size. There is a 0.8 cm cyst off the lower pole of the right kidney. A 0.7 cm area with Hounsfield units greater than simple fluid is noted posteriorly off the upper pole, which may be consistent with a complex or hemorrhagic cyst, which is demonstrated on the prior study. There is mild bilateral perinephric renal stranding. There are multiple calcifications in both kidneys which are nonobstructive. Some of the calcifications may be vascular. There are bilateral parapelvic renal cysts. There is no hydroureter. BLADDER: The urinary bladder is moderately distended and appears unremarkable. GASTROINTESTINAL TRACT: There is a gastrostomy tube, which is a new finding compared to the prior CT scan. The stomach is decompressed. The loops of small bowel have normal caliber. There is a lipoma at the ileocecal junction. The appendix is not discretely visualized. There is moderate stool within the large bowel. There is relatively extensive diverticulosis without evidence of active diverticulitis. ABDOMINAL WALL: There is a small fat-containing umbilical hernia. LYMPH NODES: There is no pelvic lymphadenopathy. There are small lymph nodes in the upper pelvis on the left. There is no abdominal or retroperitoneal lymphadenopathy. VASCULAR: There are atheromatous calcifications of the aorta and its branches. The left renal vein is retroaortic, a normal variant. PELVIC VISCERA: The prostate gland is not enlarged. There is no free fluid in the pelvis. MUSCULOSKELETAL STRUCTURES: There is abnormal fullness of the right psoas muscle with stranding extending into the retroperitoneal soft tissues laterally. The fullness has heterogenous density up to 60 Hounsfield units, and may be consistent with a hematoma. A phlegmon or developing abscess cannot be excluded. There are multilevel degenerative changes in the thoracic and lumbar spines. There are no suspicious lytic or sclerotic foci. IMPRESSION: 1. There is abnormal heterogenous density with fullness of the right psoas muscle with perimuscular stranding, which may be consistent with a hematoma. A phlegmon or developing abscess cannot be excluded. 2. There are moderate left and small right pleural effusions. There is likely consolidation or atelectasis in the left lower lobe. 3. There are bilateral renal calcifications. There is nonspecific bilateral perinephric renal stranding. There is no hydronephrosis. A hyperdense area at the upper pole of the right kidney may be consistent with a complex cyst. This could be further assessed with renal ultrasound. 4. This critical result was discussed with Amna Pickett by telephone on 08/29/2017 at 3:00 PM and it was ascertained that the content and urgency of the report was understood at the time of direct communication.
--- NOTE | 2017-08-29 17:36 | ULTRASOUND REPORT ---
EXAMINATION: RIGHT UPPER EXTREMITY VENOUS DOPPLER ULTRASOUND CLINICAL INFORMATION: Right upper extremity swelling. Rule out DVT of right upper extremity. COMPARISON: Contralateral left upper extremity venous Doppler ultrasound dated 08/09/2017. TECHNIQUE: Doppler spectral analysis and color flow Doppler imaging was performed of the right upper extremity. Compression and augmentation maneuvers were performed. FINDINGS: The right internal jugular vein, proximal brachiocephalic vein, subclavian vein and axillary veins are all patent with normal color flow and phasic changes seen. The paired brachial veins are also patent with normal color flow and compressibility seen. The basilic vein is patent with normal compressibility and color flow demonstrated. The upper and mid cephalic vein is not visualized. The lower cephalic vein is seen is normally compressible. The proximal radial and ulnar veins are patent. IMPRESSION: 1. No evidence of deep venous thrombosis in the right upper extremity. 2. Proximal and mid right cephalic vein is not visualized. The lower cephalic vein is seen and is patent.
[2017-08-29 23:18] VITALS: BP 102/60
[2017-08-30 06:57] VITALS: BP 132/66
--- NOTE | 2017-08-30 07:49 | PN- Housestaff ---
See Addendum Subjective Follow-up For: 1. Acute respiratory failure; resolved. 2. Toxic metabolic encephalopathy s/p Lumbar puncture; resolving 3. Stroke; acute right abreu radiata infarct. With left-sided weakness and severe dysarthria and dysphagia. 4. New onset atrial fibrillation. Status post emergent cardioversion. 5. Elevated troponin secondary to type II myocardial infarction 6. Hypernatremia; secondary to volume depletion. resolved 8. Dysphagia secondary to stroke; scheduled for PEG tube placement. 9. Small apical thrombus. Subjective: Patient continues to spike a fever Tmax 102 overnight. Review of Systems Constitutional: Reports: see HPI. Objective Last 24 Hrs of Vital Signs/I&O Vital Signs Date Time Temp Pulse Resp B/P B/P Pulse O2 O2 Flow FiO2 Mean Ox Delivery Rate 08/30 1020 64 132/64 08/30 0837 92 Room Air Room Air 08/30 0657 99.6 80 22 132/66 92 Nasal Cannula 08/29 2318 99.1 96 19 102/60 91 Room Air 08/29 2142 90 112/60 08/29 2052 99.9 08/29 1851 102.0 08/29 1820 91 Room Air 08/29 1225 101.3 Intake & Output 08/30 1600 08/30 0800 08/30 0000 Intake Total 280 Output Total Balance 280 Intake, Tube 280 Feeding Patient 185 lb 184 lb Weight Weight Bed scale Bed scale Measurement Method Physical Exam General Appearance: Alert, Cooperative, No Acute Distress Cardiovascular: Regular Rate, Normal S1, Normal S2 Abdomen: PEG tube intact Extremities: LLE warmth, mild skin erythema, no drainge or hematoma Current Medications: Current Medications Sig/Richard Start time Last Medication Dose Route Stop Time Status Admin Acetaminophen 650 MG .STK-MED ONE 08/29 1850 DC PO 08/29 1851 Acetaminophen 650 MG Q6P PRN 08/28 1445 AC 08/29 PO 1851 Albuterol Sulfate 3 ML EVERY 4 HRS/AWAKE 08/15 1999 AC 08/30 INH 0834 Ampicillin Sodium/ 1,500 MG Q6H 08/28 0845 AC 08/30 Sulbactam Sodium IV 0859 Sodium Chloride 100 ML Apixaban 5 MG BID 08/25 1000 DC 08/29 PO 2142 Aspirin 81 MG DAILY 08/17 1000 AC 08/30 PO 1020 Atorvastatin Calcium 80 MG 1700 03/15 1730 AC 08/29 PO 1843 Carvedilol 25 MG BID 08/11 1245 AC 08/30 PO 1020 Chlorhexidine 10 ML TID 08/21 1814 AC 08/30 Gluconate PO 102 Dextrose/Sodium 1,000 ML ONCE ONE 08/30 0015 DC 08/30 Chloride IV 08/30 2013 003 Docusate Sodium 100 MG DAILY NEEDED PRN 08/11 1230 AC PO Glycerin 2 SPRAY Q2P PRN 08/11 0215 AC 08/20 PO 184 Loratadine 10 MG DAILY 08/21 1813 AC 08/30 PO 1020 Potassium Chloride 40 MEQ DAILY 08/16 1000 AC 08/30 PO 1021 Senna/Docusate Sodium 1 TAB BID PRN 08/11 1504 AC 08/18 PO 1009 Sodium Chloride 2 SPRAY Q4P PRN 08/18 1000 AC WENDI Last 24 Hrs of Lab/Zackery Results Last 24 Hrs of Labs/Mics: Laboratory Tests 08/30/17 0832: Anion Gap 5, Estimated GFR > 60, BUN/Creatinine Ratio 34.4 H, CBC w Diff NO MAN DIFF REQ, RBC 3.21 L, MCV 99.6 H, MCH 33.0 H, MCHC 33.2, RDW 18.0 H, MPV 8.6 , Gran % 76.2 H, Lymphocytes % 12.4 L, Monocytes % 6.8, Eosinophils % 4.5, Basophils % 0.1, Absolute Granulocytes 6.8 H, Absolute Lymphocytes 1.1 L, Absolute Monocytes 0.6, Absolute Eosinophils 0.4, Absolute Basophils 0 Assessment/Plan Assessment: Mr. Pike is a 72-year-old male with history of CHF, hypertension, previous syncopal episode, presented with altered mental status and shortness of breath, initially being treated for AMS, aspiration pneumonia and RICHI and Left lower leg cellulitis, treated with Doxy, ceftriaxone, vancomycin, and was later with vancomycin and Ceftazidime. Patient had LP on 08/06/17 which was negative. Problem list: 1. Acute respiratory failure; resolved. 2. Toxic metabolic encephalopathy s/p Lumbar puncture (negative); resolving 3. Stroke; acute right abreu radiata infarct. With left-sided weakness and severe dysarthria and dysphagia. 4. New onset atrial fibrillation. Status post emergent cardioversion. 5. Elevated troponin secondary to type II myocardial infarction 6. Hypernatremia; secondary to volume depletion. resolved 8. Dysphagia secondary to stroke; s/p PEG tube placement. 9. Small apical thrombus. 10. LLE Cellulitis without leukocytosis 11. R psoas hematoma vs abscess Plan: discontinue IV Unasyn RUE doppler to r/o DVT AST/ALT pending Await final cultures report continue TRC/nebs PRN Hold Apixaban for ? psoas hematoma and fever as per Cardio Continue peg tube feedings US doppler L ext to r/o DVT negative CXR showed moderate L pleural effusions, gave IV Lasix [address] chest/abd/pel/LLE showed R psoas muscle with perimuscular stranding consistent with a hematoma though abscess cannot be r/o Pulm, ID, Cardio recommendations appreciated Diet: Tube feedings DVT PPx: Apixaban on hold FULL CODE Problem List: 1. Rapid atrial fibrillation 2. Elevated troponin 3. Acute respiratory failure 4. Altered mental state 5. Apical mural thrombus 6. Thrombus of left atrial appendage 7. Cellulitis of left leg Pain Ratin Pain Location: NA Pain Goal: Remain pain free Pain Plan: NA Tomorrow's Labs & Rationales: none
[2017-08-30 08:55] LABS: ABSOLUTE BASOPHIL COUNT 0 /CUMM (0.0-0.2); ABSOLUTE EOSINOPHIL COUNT 0.4 /CUMM (0.0-0.7); ABSOLUTE GRANULOCYTE CT 6.8 /CUMM (1.4-6.5); ABSOLUTE LYMPH COUNT 1.1 /CUMM (1.2-3.4); ABSOLUTE MONOCYTE COUNT 0.6 /CUMM (0.10-0.60); BASOPHIL % 0.1 % (0.0-2.0); EOSINOPHIL % 4.5 % (0-5); GRANULOCYTE % 76.2 % (42.2-75.2); HEMATOCRIT 31.9 % (42-52); MEAN CORPUSCULAR HGB CONC 33.2 G/DL (33.0-37.0); MEAN CORPUSCULAR VOLUME 99.6 FL (80.0-94.0); MEAN PLATELET VOLUME 8.6 FL (7.4-10.4); PLATELET COUNT 326 /CUMM (130-400); RED BLOOD CELL CT 3.21 /CUMM (4.70-6.10); WHITE BLOOD CELL COUNT 8.9 /CUMM (4.8-10.8)
--- NOTE | 2017-08-30 12:13 | PN- Infect Dx ---
Subjective Subjective: MAXIMUM TEMPERATURE 102. He does not offer any complaints. Objective Last 24 Hrs of Vital Signs/I&O Vital Signs Date Time Temp Pulse Resp B/P B/P Pulse O2 O2 Flow FiO2 Mean Ox Delivery Rate 08/30 1020 64 132/64 08/30 0837 92 Room Air Room Air 08/30 0657 99.6 80 22 132/66 92 Nasal Cannula 08/30 0000 91 Room Air 08/29 2318 99.1 96 19 102/60 91 Room Air 08/29 2142 90 112/60 08/29 2052 99.9 08/29 1851 102.0 08/29 1820 91 Room Air 08/29 1225 101.3 Intake & Output 08/30 1600 08/30 0800 08/30 0000 Intake Total 350 280 Output Total Balance 350 280 Intake, IV 350 Intake, Oral 0 Intake, Tube 0 280 Feeding Number 0 Bowel Movements Patient 185 lb 184 lb Weight Weight Bed scale Bed scale Measurement Method Physical Exam Other Physical Findings: He appears comfortable in no acute distress Lungs scattered rhonchi bilaterally Heart regular rhythm with no murmur Abdomen is soft, nontender with positive bowel sounds Back no tenderness Extremities left leg patchy erythema, with a tender, slightly ecchymotic area on the lateral aspect of his left leg; midline in place in the right upper extremity with no inflammation at the site Results Last 24 Hours of Lab Results: Laboratory Tests 08/31 831 Chemistry Sodium (137 - 145 mmol/L) 144 Potassium (3.5 - 5.1 mmol/L) 4.8 Chloride (98 - 107 mmol/L) 108 H Carbon Dioxide (22 - 30 mmol/L) 31 H Anion Gap (5 - 16) 5 BUN (9 - 20 mg/dL) 31 H Creatinine (0.7 - 1.2 mg/dL) 0.9 Estimated GFR (>60 ml/min) > 60 BUN/Creatinine Ratio (7 - 25 %) 34.4 H Hematology CBC w Diff NO MAN DIFF REQ WBC (4.8 - 10.8 /CUMM) 8.9 RBC (4.70 - 6.10 /CUMM) 3.21 L Hgb (14.0 - 18.0 G/DL) 10.6 L Hct (42 - 52 %) 31.9 L MCV (80.0 - 94.0 FL) 99.6 H MCH (27.0 - 31.0 PG) 33.0 H MCHC (33.0 - 37.0 G/DL) 33.2 RDW (11.5 - 14.5 %) 18.0 H Plt Count (130 - 400 /CUMM) 326 MPV (7.4 - 10.4 FL) 8.6 Gran % (42.2 - 75.2 %) 76.2 H Lymphocytes % (20.5 - 51.1 %) 12.4 L Monocytes % (1.7 - 9.3 %) 6.8 Eosinophils % (0 - 5 %) 4.5 Basophils % (0.0 - 2.0 %) 0.1 Absolute Granulocytes (1.4 - 6.5 /CUMM) 6.8 H Absolute Lymphocytes (1.2 - 3.4 /CUMM) 1.1 L Absolute Monocytes (0.10 - 0.60 /CUMM) 0.6 Absolute Eosinophils (0.0 - 0.7 /CUMM) 0.4 Absolute Basophils (0.0 - 0.2 /CUMM) 0 Last 24 Hours of Zackery Results: Blood cultures August 27 negative Recent Imaging Studies: Doppler of the right upper extremity August 29 no evidence of DVT CT of the chest, abdomen and pelvis August 29 reveals an abnormal heterogeneous density with fullness of the right psoas muscle, felt most likely to be a hematoma; moderate left and small right pleural effusions, with consolidation or atelectasis in the left lower lobe; nonspecific bilateral perinephric stranding, with no hydronephrosis CT of the left lower extremity reveals skin thickening and reticulonodular subcutaneous fat stranding, with no evidence of any fluid collection Assessment/Plan ID Impression: Persistent fevers, with white blood cell count remaining normal, on Unasyn Day 2 of treatment for possible cellulitis of the left lower extremity, but am not convinced he has cellulitis and suspect that his fever is related to the right psoas process, which most likely represents a hematoma in this patient who has been recently anticoagulated. A hematoma could become secondarily infected and, if his fevers persist, further evaluation to rule out this out may be necessary. Suggestion: 1. Cardiology input regarding his anticoagulation 2. Discontinue Unasyn and follow off antibiotics Rosalba Ruvalcaba MD will be covering until September 03
[2017-08-30 13:50] VITALS: BP 130/70
--- NOTE | 2017-08-30 17:46 | RADIOLOGY REPORT ---
EXAMINATION: XR PORTABLE CHEST CLINICAL INFORMATION: Hypoxia. COMPARISON: Chest x-ray 08/27/2017 TECHNIQUE: Portable frontal view of the chest was obtained. FINDINGS: Stable cardiomediastinal silhouette. No significant interval change in moderate-sized left pleural effusion and left basilar airspace disease. Probable small right pleural effusion. No acute osseous abnormality. Right-sided PICC is in similar position with tip in the region of the subclavian vein. IMPRESSION: No significant interval change.
--- NOTE | 2017-08-30 20:23 | PN- Cardiology ---
Subjective Subjective: * Patient is non-conversant today. * a psoas hematoma is noted on CT scan Objective Vital Signs and I&Os Vital Signs Date Time Temp Pulse Resp B/P B/P Pulse O2 O2 Flow FiO2 Mean Ox Delivery Rate 08/30 1657 97 Nasal 1.0L Cannula 08/30 1600 Nasal 1.0L Cannula 08/30 1350 98.9 76 22 130/70 92 Nasal 2.0L Cannula 08/30 1020 64 132/64 08/30 0837 92 Room Air Room Air 08/30 0657 99.6 80 22 132/66 92 Nasal Cannula 08/30 0000 91 Room Air 08/29 2318 99.1 96 19 102/60 91 Room Air 08/29 2142 90 112/60 08/29 2052 99.9 Intake & Output 08/30 1600 08/30 0800 08/30 0000 08/29 1600 08/29 0800 08/29 0000 Intake Total 980 350 280 780 180 390 Output Total Balance 980 350 280 780 180 390 Intake, IV 200 350 Intake, Oral 0 0 0 Intake, Tube 560 0 280 560 70 280 Feeding Intake, Tube 220 220 110 110 Irrigant Number 0 1 Bowel Movements Patient 185 lb 184 lb Weight Weight Bed scale Bed scale Measurement Method Physical Exam: General: WD/obese; lethargic Neck: no JVD, no carotid bruit Heart: RRR, no murmur Lungs: clear bilaterally Extremities: 1+ bilateral pedal edema with improved erythema Neuro: decreased movement of left arm and hand Assessment/Plan Assessment/Plan * Would hold anticoagulation for two days due to a possible psoas hematoma. Continue telemetry? No
[2017-08-30 22:18] VITALS: BP 120/60
[2017-08-31 06:00] VITALS: BP 112/64
--- NOTE | 2017-08-31 07:09 | PN- Housestaff ---
Prudencio Pickett 08/31/17 0709: Subjective Follow-up For: Problem list: 1. Acute respiratory failure; resolved. 2. Toxic metabolic encephalopathy s/p Lumbar puncture (negative); resolving 3. Stroke; acute right abreu radiata infarct. With left-sided weakness and severe dysarthria and dysphagia. 4. New onset atrial fibrillation. Status post emergent cardioversion. 5. Elevated troponin secondary to type II myocardial infarction 6. Hypernatremia; secondary to volume depletion. resolved 8. Dysphagia secondary to stroke; s/p PEG tube placement. 9. Small apical thrombus. 10. LLE Cellulitis without leukocytosis 11. R psoas hematoma vs abscess Subjective: Patient more alert and following commands. Review of Systems Constitutional: Reports: see HPI. Objective Last 24 Hrs of Vital Signs/I&O Vital Signs Date Time Temp Pulse Resp B/P B/P Pulse O2 O2 Flow FiO2 Mean Ox Delivery Rate 08/31 0000 92 Nasal 1.0L Cannula 08/30 2218 97.1 82 18 120/60 92 Nasal 1.0L Cannula 08/30 2134 97.1 98 18 120/60 08/30 1657 97 Nasal 1.0L Cannula 08/30 1600 Nasal 1.0L Cannula 08/30 1350 98.9 76 22 130/70 92 Nasal 2.0L Cannula 08/30 1020 64 132/64 08/30 0837 92 Room Air Room Air Intake & Output 08/31 0800 08/31 0000 08/30 1600 Intake Total 790 570 980 Output Total Balance 790 570 980 Intake, IV 10 200 Intake, Oral 0 Intake, Tube 560 350 560 Feeding Intake, Tube 220 220 220 Irrigant Physical Exam General Appearance: Alert, Cooperative, on 1LNC HEENT: Mucous Membr. moist/pink Cardiovascular: Regular Rate, Normal S1, Normal S2, No Murmurs Lungs: Clear to Auscultation, Normal Air Movement Abdomen: PEG tube intact Extremities: LLE skin erythema and calf swelling Current Medications: Current Medications Sig/Richard Start time Last Medication Dose Route Stop Time Status Admin Acetaminophen 650 MG Q6P PRN 08/28 1445 AC 08/29 PO 1851 Albuterol Sulfate 3 ML EVERY 4 HRS/AWAKE 08/15 1999 AC 08/30 INH 2027 Ampicillin Sodium/ 1,500 MG Q6H 08/28 0845 DC 08/30 Sulbactam Sodium IV 1325 Sodium Chloride 100 ML Apixaban 5 MG BID 08/25 1000 DC 08/30 PO 1212 Aspirin 81 MG DAILY 08/17 1000 AC 08/30 PO 1020 Atorvastatin Calcium 80 MG 1700 08/16 1730 AC 08/30 PO 1644 Carvedilol 25 MG BID 08/11 1245 AC 08/30 PO 2134 Chlorhexidine 10 ML TID 08/21 1814 AC 08/30 Gluconate PO 213 Dextrose/Sodium 1,000 ML ONCE ONE 08/30 0015 DC 08/30 Chloride IV 08/30 2013 003 Docusate Sodium 100 MG DAILY NEEDED PRN 08/11 1230 AC PO Glycerin 2 SPRAY Q2P PRN 08/11 0215 AC 08/20 PO 1841 Loratadine 10 MG DAILY 08/21 1813 AC 08/30 PO 1020 Potassium Chloride 40 MEQ DAILY 08/16 1000 AC 08/30 PO 1021 Senna/Docusate Sodium 1 TAB BID PRN 08/11 1504 AC 08/18 PO 1009 Sodium Chloride 2 SPRAY Q4P PRN 08/18 1000 AC WENDI Last 24 Hrs of Lab/Zackery Results Last 24 Hrs of Labs/Mics: Laboratory Tests 08/30/17 0832: Anion Gap 5, Estimated GFR > 60, BUN/Creatinine Ratio 34.4 H, CBC w Diff NO MAN DIFF REQ, RBC 3.21 L, MCV 99.6 H, MCH 33.0 H, MCHC 33.2, RDW 18.0 H, MPV 8.6 , Gran % 76.2 H, Lymphocytes % 12.4 L, Monocytes % 6.8, Eosinophils % 4.5, Basophils % 0.1, Absolute Granulocytes 6.8 H, Absolute Lymphocytes 1.1 L, Absolute Monocytes 0.6, Absolute Eosinophils 0.4, Absolute Basophils 0 Assessment/Plan Assessment: Mr. Pike is a 72-year-old male with history of CHF, hypertension, previous syncopal episode, presented with altered mental status and shortness of breath, initially being treated for AMS, aspiration pneumonia and RICHI and Left lower leg cellulitis, treated with Doxy, ceftriaxone, vancomycin, and was later with vancomycin and Ceftazidime. Patient had LP on 08/06/17 which was negative. Problem list: 1. Acute respiratory failure; resolved. 2. Toxic metabolic encephalopathy s/p Lumbar puncture (negative); resolving 3. Stroke; acute right abreu radiata infarct. With left-sided weakness and severe dysarthria and dysphagia. 4. New onset atrial fibrillation. Status post emergent cardioversion. 5. Elevated troponin secondary to type II myocardial infarction 6. Hypernatremia; secondary to volume depletion. resolved 8. Dysphagia secondary to stroke; s/p PEG tube placement. 9. Small apical thrombus. 10. LLE Cellulitis without leukocytosis 11. R psoas hematoma vs abscess Plan: Watch off antibiotics RUE & L ext doppler r/o DVT Await final cultures report continue TRC/nebs PRN Hold Apixaban for 2 days ? psoas hematoma and fever as per Cardio. Will resume in the morning Continue peg tube feedings CXR showed moderate L pleural effusions, gave IV Lasix [address] chest/abd/pel/LLE showed R psoas muscle with perimuscular stranding consistent with a hematoma though abscess cannot be r/o Pulm, ID, Cardio recommendations appreciated Diet: Tube feedings DVT PPx: Apixaban on hold FULL CODE Problem List: 1. Cellulitis of left leg 2. Apical mural thrombus 3. Rapid atrial fibrillation 4. Elevated troponin 5. Acute respiratory failure 6. Altered mental state Pain Ratin Pain Location: NA Pain Goal: Remain pain free Pain Plan: NA Tomorrow's Labs & Rationales: none Maria Lennon MD 08/31/17 1040: Attending MD Review Statement Attending Statement Attending MD Statement: examined this patient, discuss w/resident/PA/[employer]ION[employer]IVER, agreed w/resident/PA/D[employer]ICATED [employer]IONAL DRIVER, reviewed EMR data (avail) Attending Assessment/Plan: 72M PMH HFpEF, HTN admitted initially to ICU after being found unresponsive in his home, last seen normal 4 days prior, found to be in rapid atrial fibrillation with hypotension requiring electrical cardioversion, course complicated by left atrial thrombus, found to have right sided CVA with left sided hemiparesis and dysphagia requiring PEG placement. Was set to be seen by physical therapy for rehab placement when he developed a fever and lethargy on with erythema and swelling of the LLE with negative doppler, started on Unasyn for cellulitis. Leg looks better today, less erythematous, still lethargic but improving mental status. Imaging has revealed a left psoas hematoma. Afebrile overnight, cultures NGTD. 1. LLE cellulitis 2. Metabolic encephalopathy 3. Acute right sided CVA with left hemiparesis 4. Dysphagia secondary to CVA requiring PEG 5. Type 2 myocardial infarction 6. Unstable rapid atrial fibrillation requiring electrical cardioversion 7. Left atrial thrombus Plan - Continue on general medicine - If fevers continue will obtain surgical consult for psoas hematoma and possible infection - Follow cultures - Follow ID recommendations - ASA, statin, home medications - Continue to work with PT as tolerated - Per cardiology will restart Eliquis tomorrow and monitor CBC
--- NOTE | 2017-08-31 11:52 | PN- Infect Dx ---
Subjective Subjective: No fever today. fatigued. LE's swelling/trophic changes. Review of Systems Comments: 12 points reviewed per HPI Objective Last 24 Hrs of Vital Signs/I&O Vital Signs Date Time Temp Pulse Resp B/P B/P Pulse O2 O2 Flow FiO2 Mean Ox Delivery Rate 08/31 0920 81 132/62 08/31 0845 94 Nasal 1.0L Cannula 08/31 0800 96 Nasal 1.0L Cannula 08/31 0600 97.6 84 18 112/64 92 Nasal 1.0L Cannula 08/31 0000 92 Nasal 1.0L Cannula 08/30 2218 97.1 82 18 120/60 92 Nasal 1.0L Cannula 08/30 2134 97.1 98 18 120/60 08/30 1657 97 Nasal 1.0L Cannula 08/30 1600 Nasal 1.0L Cannula 08/30 1350 98.9 76 22 130/70 92 Nasal 2.0L Cannula Intake & Output 08/31 1600 08/31 0800 08/31 0000 Intake Total 790 570 Output Total Balance 790 570 Intake, IV 10 Intake, Oral 0 Intake, Tube 560 350 Feeding Intake, Tube 220 220 Irrigant Patient 187 lb Weight Weight Bed scale Measurement Method Physical Exam Other Physical Findings: He appears comfortable in no acute distress Lungs scattered rhonchi bilaterally Heart regular rhythm with no murmur Abdomen is soft, nontender with positive bowel sounds Back no tenderness Extremities left leg patchy erythema, with a tender, slightly ecchymotic area on the lateral aspect of his left leg; midline in place in the right upper extremity with no inflammation at the site Results Last 24 Hours of Lab Results: Reviewed. Last 24 Hours of Zackery Results: SPEC #: [id number] SEWTA: 08/27/17 STATUS: RES RECD: 08/27/[address]: Jerod KOEHLER,Yaron SOURCE: BLOOD ENTR: 08/27/[address]: Citlalli KOEHLER,Maria SPDESC: 2ND/VENOUS Amelia KOEHLRE,Kurt Robles Patient Has No Primary Care Dr ORDERED: BLOOD CULTURE Procedure Result > BLOOD CULTURE REPORT Preliminary 08/28/17 No growth after 1 day incubation. Specimen is examined continuously for 5 days before final report unless culture becomes positive. Recent Imaging Studies: AM TYPE: RAD - XRY-PORTABLE CHEST XRAY EXAMINATION: XR PORTABLE CHEST CLINICAL INFORMATION: Hypoxia. COMPARISON: Chest x-ray 08/27/2017 TECHNIQUE: Portable frontal view of the chest was obtained. FINDINGS: Stable cardiomediastinal silhouette. No significant interval change in moderate-sized left pleural effusion and left basilar airspace disease. Probable small right pleural effusion. No acute osseous abnormality. Right-sided PICC is in similar position with tip in the region of the subclavian vein. IMPRESSION: No significant interval change. DICTATED BY: Jarrod Grijalva DO DATE/TIME DICTATED:08/30/171739 ADOPTION AGENT:DHARMESH DATE/TIME TRANSCRIBED:08/30/171739 CT of the chest, abdomen and pelvis August 29 reveals an abnormal heterogeneous density with fullness of the right psoas muscle, felt most likely to be a hematoma; moderate left and small right pleural effusions, with consolidation or atelectasis in the left lower lobe; nonspecific bilateral perinephric stranding, with no hydronephrosis CT of the left lower extremity reveals skin thickening and reticulonodular subcutaneous fat stranding, with no evidence of any fluid collection Assessment/Plan ID Impression: 72-year-old male with history of CHF, hypertension, previous syncopal episode, presented with altered mental status and shortness of breath, initially being treated for AMS, aspiration pneumonia and RICHI and Left lower leg cellulitis, treated with Doxy, ceftriaxone, vancomycin, and was later with vancomycin and Ceftazidime. Patient had LP on 08/06/17 which was negative. Febrile illness; fever could be related to the right psoas process, which most likely represents a hematoma (? infected); if his fevers persist, further evaluation to rule out this out may be necessary. Suggestion: 1. Cardiology input regarding his anticoagulation 2. Follow off antibiotics 3. CBC, ESR in am.
[2017-08-31 14:48] VITALS: BP 110/65
[2017-08-31 22:32] VITALS: BP 130/80
[2017-09-01 06:59] VITALS: BP 132/60
[2017-09-01 08:47] LABS: ABSOLUTE BASOPHIL COUNT 0 /CUMM (0.0-0.2); ABSOLUTE EOSINOPHIL COUNT 0.3 /CUMM (0.0-0.7); ABSOLUTE GRANULOCYTE CT 7.1 /CUMM (1.4-6.5); ABSOLUTE LYMPH COUNT 1.1 /CUMM (1.2-3.4); ABSOLUTE MONOCYTE COUNT 0.7 /CUMM (0.10-0.60); BASOPHIL % 0.4 % (0.0-2.0); EOSINOPHIL % 2.8 % (0-5); GRANULOCYTE % 77.5 % (42.2-75.2); HEMATOCRIT 30.5 % (42-52); MEAN CORPUSCULAR HGB 32.9 PG (27.0-31.0); MEAN CORPUSCULAR HGB CONC 32.9 G/DL (33.0-37.0); MEAN CORPUSCULAR VOLUME 100.2 FL (80.0-94.0); MEAN PLATELET VOLUME 8.3 FL (7.4-10.4); PLATELET COUNT 308 /CUMM (130-400); RBC DISTRIBUTION WIDTH 17.8 % (11.5-14.5); RED BLOOD CELL CT 3.04 /CUMM (4.70-6.10); WHITE BLOOD CELL COUNT 9.2 /CUMM (4.8-10.8)
--- NOTE | 2017-09-01 09:44 | PN- Housestaff ---
Sesar KOEHLER,[facility] 09/01/17 0944: Subjective Follow-up For: Problem list: 1. Acute respiratory failure; resolved. 2. Toxic metabolic encephalopathy s/p Lumbar puncture (negative); resolving 3. Stroke; acute right abreu radiata infarct. With left-sided weakness and severe dysarthria and dysphagia. 4. New onset atrial fibrillation. Status post emergent cardioversion. 5. Elevated troponin secondary to type II myocardial infarction 6. Hypernatremia; secondary to volume depletion. resolved 8. Dysphagia secondary to stroke; s/p PEG tube placement. 9. Small apical thrombus. 10. LLE Cellulitis without leukocytosis 11. R psoas hematoma vs abscess Complaints: pt unable to provide hx Subjective: Patient is drowsy but follows commands. When asked to squeeze my hand if he does not have pain patient did squeeze MY hands. Patient had 2 episodes of nonbloody diarrhea this morning. He also had a fever to 101.6 rectally this morning. Further review of system was not possible due to patient's drowsiness. Review of Systems Constitutional: Reports: see HPI. Objective Last 24 Hrs of Vital Signs/I&O Vital Signs Date Time Temp Pulse Resp B/P B/P Pulse O2 O2 Flow FiO2 Mean Ox Delivery Rate 09/01 1211 94 Nasal 1.0L Cannula 09/01 0951 101.6 09/01 0945 101.6 09/01 0834 132/60 09/01 0800 Nasal 1.0L Cannula 09/01 0659 99.5 76 26 132/60 92 09/01 0000 94 Nasal 1.0L Cannula 08/31 2232 98.3 83 26 130/80 91 Nasal Cannula 08/31 2221 83 130/80 08/31 1626 98.3 08/31 1600 93 Nasal 1.0L Cannula 08/31 1555 95 Nasal 1.0L Cannula 08/31 1448 100.6 79 28 110/65 93 08/31 1421 100.6 Intake & Output 09/01 1600 09/01 0800 09/01 0000 Intake Total 420 780 Output Total Balance 420 780 Intake, 420 TPN/PPN Intake, Tube 560 Feeding Intake, Tube 220 Irrigant Number 1 1 Bowel Movements Patient 186 lb Weight Weight Bed scale Measurement Method Physical Exam General Appearance: Alert, Cooperative Skin: No Rashes Skin Temp/Moisture Exam: Warm/Dry Sepsis Skin Exam (color): Normal for Ethnicity HEENT: Atraumatic, DRY MUCOUS MEMBRANES Neck: Supple, No JVD Lymphatic: Cervical nl Cardiovascular: Regular Rate, Normal S1, Normal S2, No Murmurs Lungs: BILATERAL SCATTERED BRONCHIAL BREATH SOUNDS Abdomen: Normal Bowel Sounds, Soft, No Tenderness, No Hepatospenomegaly, peg TUBE IN SITU Neurological: left upper and lower limb power grade 2 or 5. Right upper and lower limb power grade 4 over 5 limb Extremities: No Edema, dressing over left leg clean and dry Current Medications: Current Medications Sig/Richard Start time Last Medication Dose Route Stop Time Status Admin Acetaminophen 650 MG .STK-MED ONE 08/31 1420 DC PO 08/31 1421 Acetaminophen 650 MG Q6P PRN 08/28 1445 AC 09/01 PO 0951 Albuterol Sulfate 3 ML EVERY 4 HRS/AWAKE 08/14 2000 AC 09/01 INH 1200 Apixaban 5 MG BID 09/01 1000 AC 09/01 PO 0834 Aspirin 81 MG DAILY 08/17 1000 AC 09/01 PO 0834 Atorvastatin Calcium 80 MG 1700 08/16 1730 AC 08/31 PO 1627 Carvedilol 25 MG BID 08/11 1245 AC 09/01 PO 0834 Chlorhexidine 10 ML TID 08/21 1814 AC 09/01 Gluconate PO 0835 Docusate Sodium 100 MG DAILY NEEDED PRN 08/11 1230 AC PO Glycerin 2 SPRAY Q2P PRN 08/11 0215 AC 08/20 PO 1841 Loratadine 10 MG DAILY 08/21 1813 AC 09/01 PO 0834 Potassium Chloride 40 MEQ DAILY 08/16 1000 AC 09/01 PO 0834 Senna/Docusate Sodium 1 TAB BID PRN 08/11 1504 AC 08/18 PO 1009 Sodium Chloride 2 SPRAY Q4P PRN 08/18 1000 AC WENDI Last 24 Hrs of Lab/Zackery Results Last 24 Hrs of Labs/Mics: Laboratory Tests 09/01/17 0812: CBC w Diff NO MAN DIFF REQ, RBC 3.04 L, MCV 100.2 H, MCH 32.9 H, MCHC 32.9 L , RDW 17.8 H, MPV 8.3, Gran % 77.5 H, Lymphocytes % 12.0 L, Monocytes % 7.3, Eosinophils % 2.8, Basophils % 0.4, Absolute Granulocytes 7.1 H, Absolute Lymphocytes 1.1 L, Absolute Monocytes 0.7 H, Absolute Eosinophils 0.3, Absolute Basophils 0, ESR Westergren 130 H Microbiology 09/01 0957 STOOL: Clostridium difficile Toxin A & B - RECD Assessment/Plan Assessment: 72M PMH HFpEF, HTN admitted initially to ICU after being found unresponsive in his home, last seen normal 4 days prior, found to be in rapid atrial fibrillation with hypotension requiring electrical cardioversion, course complicated by left atrial thrombus, found to have right sided CVA with left sided hemiparesis and dysphagia requiring PEG placement. Patient had LP on which was negative. Was set to be seen by physical therapy for rehab placement when he developed a fever and lethargy on 08/27 with erythema and swelling of the LLE with negative doppler, treated with Doxy, ceftriaxone, vancomycin, and was later changed to vancomycin and Ceftazidime. His antibiotics were switched to Unasyn for cellulitis. Problem list 1. Acute respiratory failure; resolved. 2. Toxic metabolic encephalopathy s/p Lumbar puncture (negative); resolving 3. Stroke; acute right abreu radiata infarct. With left-sided weakness and severe dysarthria and dysphagia. 4. New onset atrial fibrillation. Status post emergent cardioversion. 5. Elevated troponin secondary to type II myocardial infarction 6. Hypernatremia; secondary to volume depletion. resolved 8. Dysphagia secondary to stroke; s/p PEG tube placement. 9. Small apical thrombus. 10. LLE Cellulitis without leukocytosis 11. R psoas hematoma vs abscess Plan: * Patient's low-grade fevers persist. No evidence of DVTs in bilateral upper extremities from Doppler ultrasound scan done * ESR is markedly raised at 130 mm/hr * Patient has been having diarrhea early this morning: C-diff sample sent * Continue to watch off antibiotics * Follow-up ID recommendations * Await final cultures report * Continue TRC/nebs PRN * Apixaban has been restarted after after being held for 2 days due to concerns for ?psoas hematoma and fever as per Cardio * Continue peg tube feedings * Will order repoeat Chest x-ray for signs of congestion and will give lasix 20 mg if indicated * CT chest/abd/pel/LLE showed R psoas muscle with perimuscular stranding consistent with a hematoma though abscess cannot be ruled out * Monitor CBC in the AM * Follow Pulm, ID, Cardio recommendations * Diet: Tube feedings DVT PPx: Apixaban restarted FULL CODE Problem List: 1. Apical mural thrombus 2. Altered mental state 3. Encephalopathy 4. Acute respiratory failure 5. Cellulitis of left leg Pain Ratin Pain Location: None Pain Goal: Pain 4 or less Pain Plan: Tylenol PRN Tomorrow's Labs & Rationales: CBC, BEP Roopa KOEHLER,[facility] 09/01/17 1327: Attending MD Review Statement Attending Statement Attending MD Statement: examined this patient, discuss w/resident/PA/NET MAKER, agreed w/resident/PA/NET MAKER, discussed with family, reviewed EMR data (avail), discussed with nursing, discussed with case mgmt, reviewed images, amended to note
--- NOTE | 2017-09-01 13:30 | PN- Infect Dx ---
Subjective Subjective: Spiking fever; lethargic Review of Systems Comments: Limited 12 points ROS as noted, otherwise negative. Objective Last 24 Hrs of Vital Signs/I&O Vital Signs Date Time Temp Pulse Resp B/P B/P Pulse O2 O2 Flow FiO2 Mean Ox Delivery Rate 09/01 1243 99.8 09/01 1211 94 Nasal 1.0L Cannula 09/01 0951 101.6 09/01 0945 101.6 09/01 0834 132/60 09/01 0800 Nasal 1.0L Cannula 09/01 0659 99.5 76 26 132/60 92 09/01 0000 94 Nasal 1.0L Cannula 08/31 2232 98.3 83 26 130/80 91 Nasal Cannula 08/31 2221 83 130/80 08/31 1626 98.3 08/31 1600 93 Nasal 1.0L Cannula 08/31 1555 95 Nasal 1.0L Cannula 08/31 1448 100.6 79 28 110/65 93 08/31 1421 100.6 Intake & Output 09/01 1600 09/01 0800 09/01 0000 Intake Total 420 780 Output Total Balance 420 780 Intake, 420 TPN/PPN Intake, Tube 560 Feeding Intake, Tube 220 Irrigant Number 1 1 Bowel Movements Patient 186 lb Weight Weight Bed scale Measurement Method Physical Exam Other Physical Findings: Well nourished, lethargic HEENT AT, sclera anicteric Neck No JVD Lungs scattered rhonchi bilaterally Heart S1 S2 present, no murmur Abdomen is soft, positive bowel sounds Extremities left leg patchy erythema, with a tender, slightly ecchymotic area on the lateral aspect of his left leg w/ fluctuence; midline in place in the right upper extremity with no inflammation at the site Results Last 24 Hours of Lab Results: Laboratory Tests 09/02 811 Hematology CBC w Diff NO MAN DIFF REQ WBC (4.8 - 10.8 /CUMM) 9.2 RBC (4.70 - 6.10 /CUMM) 3.04 L Hgb (14.0 - 18.0 G/DL) 10.0 L Hct (42 - 52 %) 30.5 L MCV (80.0 - 94.0 FL) 100.2 H MCH (27.0 - 31.0 PG) 32.9 H MCHC (33.0 - 37.0 G/DL) 32.9 L RDW (11.5 - 14.5 %) 17.8 H Plt Count (130 - 400 /CUMM) 308 MPV (7.4 - 10.4 FL) 8.3 Gran % (42.2 - 75.2 %) 77.5 H Lymphocytes % (20.5 - 51.1 %) 12.0 L Monocytes % (1.7 - 9.3 %) 7.3 Eosinophils % (0 - 5 %) 2.8 Basophils % (0.0 - 2.0 %) 0.4 Absolute Granulocytes (1.4 - 6.5 /CUMM) 7.1 H Absolute Lymphocytes (1.2 - 3.4 /CUMM) 1.1 L Absolute Monocytes (0.10 - 0.60 /CUMM) 0.7 H Absolute Eosinophils (0.0 - 0.7 /CUMM) 0.3 Absolute Basophils (0.0 - 0.2 /CUMM) 0 ESR Westergren (0 - 10 MM) 130 H Last 24 Hours of Zackery Results: SPEC #: [id number] SWETA: 09/01/17 STATUS: COMP RECD: 09/01/17 [facility] DR: Chapo Mota MD SOURCE: STOOL ENTR: 09/01/17 [facility] DR: Maria Lennon [facility] Amelia [facility]HLER,[facility] Margaret Patient Has No Primary Care Dr ORDERED: C.DIFFICILE EIA COMMENT: Has pt had antimicrobial/antineoplastic rx in past 4-6wks? Y Has pt had abd pain, fever, or constipation? Y Procedure Result > C. DIFFICILE TOXIN A & B EIA Final 09/01/17-1299 NEGATIVE FOR CLOSTRIDIUM DIFFICILE TOXINS A & B BY EIA Recent Imaging Studies: Reviewed Assessment/Plan ID Impression: 72-year-old male with history of CHF, hypertension, previous syncopal episode, presented with altered mental status and shortness of breath, initially being treated for AMS, aspiration pneumonia and RICHI and Left lower leg cellulitis, treated with Doxy, ceftriaxone, vancomycin, and was later with vancomycin and Ceftazidime; currently off abx. Patient had LP on 08/06/17 which was negative. Febrile illness; fever could be related to the right psoas process, which most likely represents a hematoma (? infected); if his fevers persist, further evaluation to rule out this out may be necessary. Elev ESR (>130) Suggestion: 1. BC x2 and UA/UC today. Repeat CXR r/o aspiration pneumonia. 2. If persitent high fever/developing hypotension please call. 3. If persistent fever WBC scan eval psoas muscle infected hematoma vs interval F/U CT A/P. 4. Trend CBC, BMP, LFT's and lactic acid.
--- NOTE | 2017-09-01 16:21 | RADIOLOGY REPORT ---
EXAMINATION: XR CHEST CLINICAL INFORMATION: Shortness of breath. Aspiration pneumonia. COMPARISON: Chest x-ray dated 08/30/2017. TECHNIQUE: 2 views of the chest were obtained on 3 images. FINDINGS: The cardiomediastinal silhouette is enlarged. Lungs bilaterally demonstrate central vascular congestion and diffuse perihilar reticular opacities, consistent with pulmonary edema. Small bilateral pleural effusions are seen. No pneumothorax is noted. There is a dense calcified nodule in the right lung apex seen, consistent with a calcified granuloma. Osteopenia and multilevel degenerative changes in the spine are noted. IMPRESSION: Findings are consistent with congestive heart failure given the cardiomegaly, pulmonary edema and bilateral small pleural effusions. Close clinical correlation requested.
[2017-09-01 18:58] VITALS: BP 118/60
[2017-09-01 22:25] VITALS: BP 132/64
[2017-09-02 06:32] VITALS: BP 126/68
--- NOTE | 2017-09-02 08:23 | PN- Housestaff ---
See Addendum Subjective Follow-up For: 1. Acute respiratory failure; resolved. 2. Toxic metabolic encephalopathy s/p Lumbar puncture (negative); resolving 3. Stroke; acute right abreu radiata infarct. With left-sided weakness and severe dysarthria and dysphagia. 4. New onset atrial fibrillation. Status post emergent cardioversion. 5. Elevated troponin secondary to type II myocardial infarction 6. Hypernatremia; secondary to volume depletion. resolved 8. Dysphagia secondary to stroke; s/p PEG tube placement. 9. Small apical thrombus. 10. LLE Cellulitis without leukocytosis 11. R psoas hematoma vs abscess Subjective: Low grade fever overnight after Eliquis restarted yesterday Review of Systems Constitutional: Reports: see HPI. Objective Last 24 Hrs of Vital Signs/I&O Vital Signs Date Time Temp Pulse Resp B/P B/P Pulse O2 O2 Flow FiO2 Mean Ox Delivery Rate 09/02 0920 70 110/64 09/02 0632 99.4 96 20 126/68 92 Nasal 1.0L Cannula 09/02 0000 Nasal 1.0L Cannula 09/01 2225 97.3 99 22 132/64 91 Nasal Cannula 09/01 2125 99 132/64 09/01 1858 99.0 90 20 118/60 91 Nasal 1.0L Cannula 09/01 1617 90 Room Air 09/01 1600 Nasal 1.0L Cannula 09/01 1435 99.8 09/01 1243 99.8 09/01 1211 94 Nasal 1.0L Cannula 09/01 0951 101.6 Intake & Output 09/02 1600 09/02 0800 09/02 0000 Intake Total 780 780 Output Total Balance 780 780 Intake, Tube 560 560 Feeding Intake, Tube 220 220 Irrigant Patient 196 lb Weight Weight Bed scale Measurement Method Physical Exam General Appearance: Alert, Cooperative, No Acute Distress Cardiovascular: Regular Rate, Normal S1, Normal S2, No Murmurs Lungs: Clear to Auscultation, Normal Air Movement Abdomen: Normal Bowel Sounds, Soft, No Tenderness, PEG intact Current Medications: Current Medications Sig/Richard Start time Last Medication Dose Route Stop Time Status Admin Acetaminophen 650 MG .STK-MED ONE 09/01 0950 DC PO 09/01 0951 Acetaminophen 650 MG Q6P PRN 08/28 1445 AC 09/01 PO 0951 Albuterol Sulfate 3 ML EVERY 4 HRS/AWAKE 08/15 1999 AC 09/01 INH 202 Apixaban 5 MG BID 09/01 1000 AC 09/02 PO 0920 Aspirin 81 MG DAILY 08/17 1000 AC 09/02 PO 0919 Atorvastatin Calcium 80 MG 1700 08/16 1730 AC 09/01 PO 1637 Carvedilol 25 MG BID 08/11 1245 AC 09/02 PO 0920 Chlorhexidine 10 ML TID 08/21 1814 AC 09/02 Gluconate PO 0922 Docusate Sodium 100 MG DAILY NEEDED PRN 08/11 1230 AC PO Furosemide 40 MG .STK-MED ONE 09/01 1940 DC IV 09/01 1941 Furosemide 20 MG ONCE ONE 09/01 1914 DC 09/01 IV 09/02 1915 194 Glycerin 2 SPRAY Q2P PRN 08/11 0215 AC 08/20 PO 1841 Loratadine 10 MG DAILY 08/21 1813 AC 09/02 PO 0919 Potassium Chloride 40 MEQ DAILY 08/16 1000 AC 09/02 PO 0921 Senna/Docusate Sodium 1 TAB BID PRN 08/11 1504 AC 08/18 PO 1009 Sodium Chloride 2 SPRAY Q4P PRN 08/18 1000 AC WENDI Last 24 Hrs of Lab/Zackery Results Last 24 Hrs of Labs/Mics: Laboratory Tests 09/02/17 0825: Anion Gap 6, Estimated GFR > 60, BUN/Creatinine Ratio 37.5 H, CBC w Diff NO MAN DIFF REQ, RBC 3.28 L, MCV 99.8 H, MCH 32.7 H, MCHC 32.8 L, RDW 18.1 H, MPV 8.5, Gran % 79.1 H, Lymphocytes % 10.3 L, Monocytes % 6.5, Eosinophils % 4.1, Basophils % 0, Absolute Granulocytes 7.5 H, Absolute Lymphocytes 1.0 L, Absolute Monocytes 0.6, Absolute Eosinophils 0.4, Absolute Basophils 0 09/01/17 1430: Urine Color YEL, Urine Clarity CLEAR, Urine pH 6.0, Ur Specific [place] 1.025, Urine Protein 30 H, Urine Ketones NEG, Urine Nitrite NEG, Urine Bilirubin NEG, Urine Urobilinogen 0.2, Ur Leukocyte Esterase NEG, Ur Microscopic SEDIMENT EXAMINED, Urine RBC RARE, Urine WBC RARE, Ur Epithelial Cells RARE, Urine Bacteria RARE H, Urine Mucus RARE, Micro UA Comment MORE INFO: H, Urine Hemoglobin NEG, Urine Glucose NEG Microbiology 09/01 1720 BLOOD: Blood Culture - RECD 09/01 1430 URINE ROUT: Urine Culture - RES 09/01 1402 BLOOD: Blood Culture - CAN Cancelled: SPECIMEN NOT RECEIVED IN LABORATORY 09/01 0935 STOOL: Clostridium difficile Toxin A & B - COMP Assessment/Plan Assessment: Mr. Pike is a 72-year-old male with history of CHF, hypertension, previous syncopal episode, presented with altered mental status and shortness of breath, initially being treated for AMS, aspiration pneumonia and RICHI and Left lower leg cellulitis, treated with Doxy, ceftriaxone, vancomycin, and was later with vancomycin and Ceftazidime. Patient had LP on 08/06/17 which was negative. Problem list: 1. Acute respiratory failure; resolved. 2. Toxic metabolic encephalopathy s/p Lumbar puncture (negative); resolving 3. Stroke; acute right abreu radiata infarct. With left-sided weakness and severe dysarthria and dysphagia. 4. New onset atrial fibrillation. Status post emergent cardioversion. 5. Elevated troponin secondary to type II myocardial infarction 6. Hypernatremia; secondary to volume depletion. resolved 8. Dysphagia secondary to stroke; s/p PEG tube placement. 9. Small apical thrombus. 10. LLE Cellulitis without leukocytosis 11. R psoas hematoma vs abscess Plan: Watch off antibiotics RUE & L ext doppler r/o DVT continue TRC/nebs PRN Hold Apixaban for 2 days ? psoas hematoma and fever as per Cardio. Will resume in the morning Continue peg tube feedings CXR showed moderate L pleural effusions, gave IV Lasix [address] chest/abd/pel/LLE showed R psoas muscle with perimuscular stranding consistent with a hematoma though abscess cannot be r/o Pulm, ID, Cardio recommendations appreciated Possible discharge to STR today Diet: Tube feedings DVT PPx: Apixaban FULL CODE Problem List: 1. Rapid atrial fibrillation 2. Elevated troponin 3. Altered mental state 4. Apical mural thrombus 5. Cellulitis of left leg Pain Ratin Pain Location: NA Pain Goal: Remain pain free Pain Plan: NA Tomorrow's Labs & Rationales: none
--- NOTE | 2017-09-02 08:33 | PN- Infect Dx ---
Subjective Subjective: Low grade temp this am; T max 101.6F previous day. Review of Systems Comments: 12 points reviewed as noted, otherwise neg. Objective Last 24 Hrs of Vital Signs/I&O Vital Signs Date Time Temp Pulse Resp B/P B/P Pulse O2 O2 Flow FiO2 Mean Ox Delivery Rate 09/02 0632 99.4 96 20 126/68 92 Nasal 1.0L Cannula 09/02 0000 Nasal 1.0L Cannula 09/01 2225 97.3 99 22 132/64 91 Nasal Cannula 09/01 2125 99 132/64 09/01 1858 99.0 90 20 118/60 91 Nasal 1.0L Cannula 09/01 1617 90 Room Air 09/01 1600 Nasal 1.0L Cannula 09/01 1435 99.8 09/01 1243 99.8 09/01 1211 94 Nasal 1.0L Cannula 09/01 0951 101.6 09/01 0945 101.6 09/01 0834 132/60 Intake & Output 09/02 1600 09/02 0800 09/02 0000 Intake Total 780 780 Output Total Balance 780 780 Intake, Tube 560 560 Feeding Intake, Tube 220 220 Irrigant Patient 196 lb Weight Weight Bed scale Measurement Method Physical Exam Other Physical Findings: Well nourished, lethargic HEENT AT, sclera anicteric Neck No JVD Lungs scattered rhonchi bilaterally Heart S1 S2 present, no murmur Abdomen is soft, positive bowel sounds Extremities left leg patchy erythema, with a tender, slightly ecchymotic area on the lateral aspect of his left leg; midline in place in the right upper extremity with no inflammation at the site Results Last 24 Hours of Lab Results: Laboratory Tests 09/01 1430 Urines Urine Color (YEL,AMB,STR) YEL Urine Clarity (CLEAR) CLEAR Urine pH (5.0 - 8.0) 6.0 Ur Specific [place] (1.001 - 1.035) 1.025 Urine Protein (NEG,<30 MG/DL) 30 H Urine Ketones (NEG) NEG Urine Nitrite (NEG) NEG Urine Bilirubin (NEG) NEG Urine Urobilinogen (0.1 - 1.0 EU/dl) 0.2 Ur Leukocyte Esterase (NEG) NEG Ur Microscopic SEDIMENT EXAMINED Urine RBC (0 - 5 /HPF) RARE Urine WBC (0 - 2 /HPF) RARE Ur Epithelial Cells (NONE,FEW) RARE Urine Bacteria (NEG/NONE) RARE H Urine Mucus (FEW,NONE) RARE Micro UA Comment MORE INFO: H Urine Hemoglobin (NEG) NEG Urine Glucose (N MG/DL) NEG Last 24 Hours of Zackery Results: SPEC #: [id number] SWETA: 09/01/171430 STATUS: RECD RECD: 09/01/17-[address]: Nakul KOEHLER,Chapo SOURCE: URINE ROUT ENTR: 09/01/17-[address]: Citlalli KOEHLER,Maria SPDESC: KORI Cisneros MD,Kurt Robles Patient Has No Primary Care Dr ORDERED: URINE CULTURE COMMENT: TRIO Procedure Result URINE CULTURE PENDING Recent Imaging Studies: CXR 09/01 IMPRESSION: Findings are consistent with congestive heart failure given the cardiomegaly, pulmonary edema and bilateral small pleural effusions. Close clinical correlation requested. DICTATED BY: Lyubov KOEHLER,Aliyah Ewing DATE/TIME DICTATED:09/01/171614 SOFTWARE PRODUCT SPECIALIST:DHARMESH DATE/TIME TRANSCRIBED:09/01/171614 Assessment/Plan ID Impression: 72-year-old male with history of CHF, hypertension, previous syncopal episode, presented with altered mental status and shortness of breath, initially being treated for AMS, aspiration pneumonia and RICHI and Left lower leg cellulitis, treated with Doxy, ceftriaxone, vancomycin, and was later with vancomycin and Ceftazidime; currently off abx. Patient had LP on 08/06/17 which was negative. Febrile illness; fever could be related to the right psoas process, which most likely represents a hematoma (? infected); as fevers persist, further evaluation necessary. CXR 09/01 fluid overload Elev ESR (>130) Suggestion: 1. F/u BC x2 and UC results from 09/01. 2. If high fever/developing hypotension please call. 3. Depending on the clinical course consider WBC scan eval psoas muscle infected hematoma vs interval F/U CT A/P. 4. Trend CBC, BMP, LFT's and lactic acid. ADDENDUM; Code called after he was found unresponsive.
[2017-09-02 09:00] LABS: ABSOLUTE BASOPHIL COUNT 0 /CUMM (0.0-0.2); ABSOLUTE EOSINOPHIL COUNT 0.4 /CUMM (0.0-0.7); ABSOLUTE GRANULOCYTE CT 7.5 /CUMM (1.4-6.5); ABSOLUTE MONOCYTE COUNT 0.6 /CUMM (0.10-0.60); BASOPHIL % 0 % (0.0-2.0); EOSINOPHIL % 4.1 % (0-5); GRANULOCYTE % 79.1 % (42.2-75.2); HEMATOCRIT 32.7 % (42-52); MEAN CORPUSCULAR HGB 32.7 PG (27.0-31.0); MEAN CORPUSCULAR HGB CONC 32.8 G/DL (33.0-37.0); MEAN CORPUSCULAR VOLUME 99.8 FL (80.0-94.0); MEAN PLATELET VOLUME 8.5 FL (7.4-10.4); PLATELET COUNT 350 /CUMM (130-400); RBC DISTRIBUTION WIDTH 18.1 % (11.5-14.5); RED BLOOD CELL CT 3.28 /CUMM (4.70-6.10); WHITE BLOOD CELL COUNT 9.4 /CUMM (4.8-10.8)
[2017-09-02 09:20] VITALS: BP 110/64
--- NOTE | 2017-09-02 11:16 | PN- Resident CRCU ---
Adilene KOEHLER,[facility] 09/02/17 1115: Subjective HPI/CRCU Issues: Notified this morning for code 3 cardiac arrest. Objective Vital Signs & I&O Last 8 Hrs of Vitals and I&O: NA Exam General Appearance: Unresponsive Current Medications: Current Medications Sig/Richard Start time Last Medication Dose Route Stop Time Status Admin Acetaminophen 650 MG Q6P PRN 08/28 1445 DCD 09/01 PO 0951 Albuterol Sulfate 3 ML EVERY 4 HRS/AWAKE 08/15 1999 DCD 09/01 INH 2025 Apixaban 5 MG BID 09/01 1000 DCD 09/02 PO 0920 Aspirin 81 MG DAILY 08/17 1000 DCD 09/02 PO 0919 Atorvastatin Calcium 80 MG 1700 08/16 1730 DCD 09/01 PO 1637 Carvedilol 25 MG BID 08/11 1245 DCD 09/02 PO 0920 Chlorhexidine 10 ML TID 08/21 1814 DCD 09/02 Gluconate PO 0922 Docusate Sodium 100 MG DAILY NEEDED PRN 08/11 1230 DCD PO Furosemide 40 MG .STK-MED ONE 09/01 1941 DC IV 09/01 1942 Furosemide 20 MG ONCE ONE 09/01 191 DC 09/01 IV 09/01 191 1944 Glycerin 2 SPRAY Q2P PRN 08/11 0215 DCD 08/20 PO 1841 Loratadine 10 MG DAILY 08/21 1813 DCD 09/02 PO 0919 Potassium Chloride 40 MEQ DAILY 08/16 1000 DCD 09/02 PO 0921 Senna/Docusate Sodium 1 TAB BID PRN 08/11 1504 DCD 08/18 PO 1009 Sodium Chloride 2 SPRAY Q4P PRN 08/18 1000 DCD WENDI Impression/Plan Impression/Problem List Impression: Mr Pike is a 72-year-old male with history of CHF, hypertension, previous syncopal episode, presented with altered mental status and shortness of breath, initially being treated for AMS, aspiration pneumonia and RICHI and Left lower leg cellulitis. Treated with Doxy, ceftriaxone, vancomycin, and was later with vancomycin and Ceftazidime. Currently being followed off antibiotics. A LP was performed on 08/06/17 which was negative. At 10:40 AM code 3 was called. At the time we presented to the room the patient was undergoing CPR. Patient's nurse found him to be unresponsive and called code 3. Appears that he was lastnormal at approximately 10:15 AM. Cardio resuscitative efforts were performed, he received 4 rounds of epinephrine. Bicarbonate and calcium were also administered owing to potassium level of 5.0. CPR performed following protocol for 31 minutes. He remained in asystole despite resuscitation efforts and intubation.An attempt was also made to pace by the vulnerability researcher. He was pronounced at 11:11 AM. Code ran by house staff Dr. Watkins. Polisher Numeral Javier Patrick MD present. Critical care physician Dr. Contreras was present over the entirety of this episode. Family was updated by house staff. Problem List: 1. Cellulitis of left leg 2. Cardiac arrest Pain Ratin Tomorrow's Labs & Rationales: NA Plan DVT/Prophylaxis: pharmacological Code Status: Full Code Salas Contreras MD 09/02/17 1149: Attending MD Review Statement Attending Sign Off Other Findings: Salas Carson M.D. have examined this patient, reviewed available EMR data, personally reviewed images, discussed with resident/PA/PULP REFINER OPERATOR, discussed management plan with housestaff and nursing staff, discussed managment plan all of healthcare providers, discussed management plan with patient and/or family, agreed with resident/PA/PULP REFINER OPERATOR. The past history and parts of the chart have been autopopulated. Impression 72 year old man, medical history extensively reviewed. Cardiac arrest called. Total time in arrest 31 minutes - Primarily asystole with a brief PEA episode. 4 rounds of epinephrine, given elevated K, calcium and bicarbonate were administered as well. Pt was intubated during arrest. The working diagnosis was possible a CVA, possibly aspiration, vs a cardiac event. The family was updated by housestaff during the arrest. After 31 minutes the patient despite an attempt to pace, had no pulse and remained in asystole. The time of was called at 11:11am. The family was notified by the primary team. TTS 50 minute including cardiac arrest and chart review
--- NOTE | 2017-09-02 11:34 | Event Note ---
See Addendum Event Note Event Note: Mr. Pike is a 72-year-old male with history of CHF, hypertension, CAD s/p stent placement at [facility], previous syncopal episode, found by his landlord lying on his couch when she didn't hear for him for 3 days BIBA with altered mental status and shortness of breath admitted to ICU, found to be in RVR and was cardioverted emergently, intubated for airway protection and increasing oxygen requirements, LP on 08/06/17 which was negative, aspiration pneumonia, RICHI and Left lower leg cellulitis treated with broad spectrum antibiotics. 09/02/17 10:40 am CODE 3 RN went to patient room approximately 10:40 am and found the patient nonresponsive. Patient was last seen by RN normal at approximately 10:15 am. Son was informed about the Code 3 and wishes to perform CPR and mechanical ventilation was confirmed. Son reported he was in [facility] but would not be able to come in today. Housestaff performed CPR for 31 mins, patient was found to be in asystole that initially converted to a PEA but after pacing attempts were made, he went back into asystole. Anesthesia was present for respiratory support but patient continue to have absence of pulse, respiration, pupil response. Pascual Mccann MD - Resident pronounced at 11:11 am in agreement with Dr. Contreras-Electrical Project Engineer and Dr. Patrick-Steam Setter Cause of is unknown. Patient suffered a CVA with L sided weakness. ECHO showed evidence of a apical thrombus. He was started on anticoagulation but held it was for 2 days due to an incidental R psoas hematoma found on CT abdomen/ pelvis accompanied by spiking fevers. Patient resumed his anticoagulation yesterday and remained stable overnight. Patient may have potentially aspirated while on tube feeds but that is also unclear at this time. Spiritual care was present and spoke to patient's brother along with attending physician and housestaff. Son was informed after father and he reports that he will be here tomorrow.
--- NOTE | 2017-09-02 12:17 | Discharge Summary ---
Visit Information Visit Dates Admission Date: 08/02/17 Hospital Course Allergies: Coded Allergies: No Known Allergies (08/02/17) Discharge Instructions General Discharge Information Code Status: Full Code Medications at Discharge Discharge Medications: Continue taking these medications: Aspirin (Adult Low Dose Aspirin EC) 81 MG TABLET.DR 1 Tablet ORAL DAILY Lisinopril (Lisinopril) 20 MG TABLET 1 Tablet ORAL DAILY Qty = 90 Carvedilol (Carvedilol) 25 MG TABLET 1 Tablet ORAL TWICE DAILY Qty = 60 Start taking the following new medications: Apixaban (Eliquis) 5 MG TABLET 1 Tablet ORAL TWICE DAILY Qty = 60 No Refills
== END 2017-09-02 11:11 | disposition expired | DRG 207 ==
LOC: ERH 14:07 → 2NA 16:36 → CRI 16:36 → ERHI 16:36 → ENRESERV 18:17 → ENTRNSPT 20:37 → CMPTRNSPT 21:31 → CRI 21:36 → ENTRNSPT 08-18 11:20 → EDTRNSPT 08-18 11:33 → EDTRNSPTSTS 08-18 11:33 → 1NO 08-18 12:07 → CMPTRNSPT 08-18 12:11 → 1NO 08-20 07:33 → ENTRNSPT 08-25 16:49 → 2NA 08-25 17:10 → CMPTRNSPT 08-25 17:17 → 2NA 08-25 21:08
PROVIDERS: Internal Medicine; Internal Medicine Critical Care Medicine; Internal Medicine Endocrinology, Diabetes & Metabolism; Internal Medicine Interventional Cardiology; Internal Medicine Pulmonary Disease; Physician Assistant; Student in an Organized Health Care Education/Training Program
PROC: 5A2204Z Restoration of Cardiac Rhythm, Single (ICD-10-PCS; 2017-08-02)
PROC: 009U3ZX Drainage of Spinal Canal, Percutaneous Approach, Diagnostic (ICD-10-PCS; 2017-08-06)
PROC: 30233L1 Transfusion of Nonautologous Fresh Plasma into Peripheral Vein, Percutaneous Approach (ICD-10-PCS; 2017-08-06)
PROC: 05H533Z Insertion of Infusion Device into Right Subclavian Vein, Percutaneous Approach (ICD-10-PCS; 2017-08-07)
PROC: 5A1955Z Respiratory Ventilation, Greater than 96 Consecutive Hours (ICD-10-PCS; principal; 2017-08-08)
PROC: 0BH17EZ Insertion of Endotracheal Airway into Trachea, Via Natural or Artificial Opening (ICD-10-PCS; 2017-08-08)
PROC: B246ZZ4 Ultrasonography of Right and Left Heart, Transesophageal (ICD-10-PCS; 2017-08-14)
PROC: 0DH63UZ Insertion of Feeding Device into Stomach, Percutaneous Approach (ICD-10-PCS; 2017-08-24)
PROC: 3E0G76Z Introduction of Nutritional Substance into Upper GI, Via Natural or Artificial Opening (ICD-10-PCS; 2017-08-24)
PROC: 0DJ08ZZ Inspection of Upper Intestinal Tract, Via Natural or Artificial Opening Endoscopic (ICD-10-PCS; 2017-08-24)
DX: J69.0 Pneumonitis due to inhalation of food and vomit (principal); I21.A1 Myocardial infarction type 2; I63.40 Cerebral infarction due to embolism of unspecified cerebral artery; I47.2 Ventricular tachycardia; G92 Toxic encephalopathy; N17.9 Acute kidney failure, unspecified; R13.10 Dysphagia, unspecified; I48.0 Paroxysmal atrial fibrillation; J96.01 Acute respiratory failure with hypoxia; G83.24 Monoplegia of upper limb affecting left nondominant side; E87.2 Acidosis; E87.0 Hyperosmolality and hypernatremia; L03.116 Cellulitis of left lower limb; I13.0 Hypertensive heart and chronic kidney disease with heart failure and stage 1 through stage 4 chronic kidney disease, or unspecified chronic kidney disease; I50.32 Chronic diastolic (congestive) heart failure; I27.20 Pulmonary hypertension, unspecified; D69.6 Thrombocytopenia, unspecified; I08.1 Rheumatic disorders of both mitral and tricuspid valves; Z91.14 Patient's other noncompliance with medication regimen; I25.2 Old myocardial infarction; I49.3 Ventricular premature depolarization; R47.1 Dysarthria and anarthria; E66.9 Obesity, unspecified; M79.81 Nontraumatic hematoma of soft tissue; N18.9 Chronic kidney disease, unspecified; Z68.37 Body mass index [BMI] 37.0-37.9, adult; I49.1 Atrial premature depolarization; R33.9 Retention of urine, unspecified; K44.9 Diaphragmatic hernia without obstruction or gangrene; R21 Rash and other nonspecific skin eruption
CPT/HCPCS: 1NP; 2NAP; 82040; 82570; 82784; 83605; 83883; 84133; 84156; 84166; 84300; 86022; 86160; 86618; 86644; 86645; 86787; 87070; 87205; 87529; 87799; CCU; 36415; 36592; 71045; 71046; 74176; 74230; 76775; 80307; 81001; 82436; 82595; 84165; 87040; 87086; 87389; 87449; 87450; 87804; 87804-59; 93005; 93010; 93306; 93325; 93925; 93970; 95816; 96374; 96375; 96376; 97110-GO; 97162-GP; 97166-GO; 97530-GO; 99291; C1769; G0480; J0131; J0456; J0690; J0696; J0713; J1200; J1644; J1940; J2310; J2920; J3010; J3370; J3490; J7060; J7608; P9017